=== PATIENT | female | born 1940 | race Caucasian/White ===

== ENCOUNTER → 2017-12-17 09:39 | Outpatient (CLI) | payer MEDICARE, SELFPAY | PROVIDERS: PCP Internal Medicine; Visit Provider Internal Medicine | DX: M81.0 Age-related osteoporosis without current pathological fracture (principal) | CPT/HCPCS: 77080; 77081 ==

== ENCOUNTER 2017-12-23 09:45 | Outpatient (RCR) | payer MEDICARE, SELFPAY ==
--- NOTE | 2017-11-24 10:51 | PT.OTN ---
Current Diagnoses Muscle weakness (generalized) (11/24/17) Other abnormalities of gait and mobility (11/24/17) Abnormal posture (11/24/17) Other symptoms and signs involving the musculoskeletal system (11/24/17) Transition note: On November 23, 2017 our therapy services consisting of Speech, Occupational, and Physical Therapy transitioned from the [employer] electronic documentation system to a new [employer] electronic documentation system.?? All documentation prior to November 23 can be found under [employer] saved data. From November 23 forward all medical record documentation will be in [employer] 6.1.
--- NOTE | 2017-11-24 12:59 | PT.OTN ---
Current Diagnoses Muscle weakness (generalized) (11/24/17) Other abnormalities of gait and mobility (11/24/17) Abnormal posture (11/24/17) Other symptoms and signs involving the musculoskeletal system (11/24/17) Physical Therapy Treatment Note PT-OP-A Visit Information Start: 11/24/17 12:29 Freq: Status: Active Protocol: Activity Type Activity Date Activity User E-Sign Co-Sign Detail Recorded Client Recorded Date Recorded By Document 11/24/17 12:31 [facility] [email or web address] 11/24/17 12:54 [facility] 11/24/17 12:31 Out-Patient Physical Therapy Visit Information [Visit Information] -Visit Type Treatment Note -Visit Start Time 10:30 -Visit Stop Time 11:10 -Total Visit Minutes 40 -Visit Number 7 -Number of BRIDGE ENGINEER Visits 0 [Evaluation Information] -Evaluation Date 10/06/17 PT-OP-C Subjective Start: 11/24/17 12:29 Freq: Status: Active Protocol: Activity Type Activity Date Activity User E-Sign Co-Sign Detail Recorded Client Recorded Date Recorded By Document 11/24/17 12:31 [place] [id number] 11/24/17 12:54 [facility] 11/24/17 12:31 OP-PT Subjective [Patient Comments] -Patient Comments Pt notes that she still cannot open a tight jar of pickles, but is pleased with where she is at right now with her healing. -Patient Reported Progress Improving PT-OP-D Balance Start: 11/24/17 12:29 Freq: Status: Active Protocol: Activity Type Activity Date Activity User E-Sign Co-Sign Detail Recorded Client Recorded Date Recorded By Document 11/24/17 12:31 [facility] [email or web address] 11/24/17 12:54 [facility] 11/24/17 12:31 OP-PT Balance Assessment [Standing Balance] -Standing Balance Comments 10 second standing bilaterally in semi-tandem standing on Shuttle Balance (blue) with UE support Chand Fall Scale [Copyright Permission] Jagruti JM, Jagruti RM, Jesenia SJ. Development of a scale to identify the fall-prone patient. Can J Aging 1989;8; 366-7. Carly Chand (2009). Preventing patient falls. (2nd ed). [place]: [employer]. PT-OP-Q Treatments Start: 11/24/17 12:29 Freq: Status: Active Protocol: Activity Type Activity Date Activity User E-Sign Co-Sign Detail Recorded Client Recorded Date Recorded By Document 11/24/17 12:31 [facility] [email or web address] 11/24/17 12:54 [facility] 11/24/17 12:31 Cardio Equipment [Recumbent Stepper (Sci-Fit)] -Duration (Minutes) 6 -Resistance 3 -Seat Position 11 -Other biodex Gym Equipment [Shuttle Balance] 1 -Details blue- semi- tandem and normal DL -Reps/Duration 14 minutes Therapeutic Exercises [Sitting Exercises] 4 -Sitting Exercise Name A/P stabilization with red Flex- bar -Side right -Reps/Minutes 2 min 3 -Sitting Exercise Name 4-way wrist ROM vs. gravity -Side right -Reps/Minutes 10 each 2 -Sitting Exercise Name digi-flex ( green) indiv. manual writer and whole manual writer -Side right -Reps/Minutes 8 reps each 1 -Sitting Exercise Name Flexbar (red)- pro/supination, wrist flex/ext -Side bilateral -Reps/Minutes 2x10 PT-OP-T Assessment and Plan Start: 11/24/17 12:29 Freq: Status: Active Protocol: Activity Type Activity Date Activity User E-Sign Co-Sign Detail Recorded Client Recorded Date Recorded By Document 11/24/17 12:31 [facility] [email or web address] 11/24/17 12:54 [facility] 11/24/17 12:31 Physical Therapy Assessment [Rehab Potential] -Rehabilitation Potential Good [Impairments] -Impairments Functional Activities ROM Strength [Assessment Summary] -Assessment Pt with improved tolerance to ROM vs. gravity of the R wrist , and appears to have improved standing balance on unstable surface. Pt is progressing well with physical therapy, and did not c/o pain this session. Physical Therapy Plan [Frequency and Duration] -Frequency of Treatment 2x/Week -Duration of Treatment 12 wks -Plan of Care Start Date 10/06/17 -Plan of Care End Date 12/28/17 [Therapeutic Interventions] -Therapeutic Interventions Home Exercise Program Manual Therapy Neuromuscular Re-education Therapeutic Exercises [Next Visit Focus/Plan] -Next Visit Plan continue to progress R wrist ROM, strength, and standing balance ( dynamic and static).
--- NOTE | 2017-11-26 13:45 | PT.OTN ---
Current Diagnoses Muscle weakness (generalized) (11/26/17) Other abnormalities of gait and mobility (11/26/17) Abnormal posture (11/26/17) Other symptoms and signs involving the musculoskeletal system (11/26/17) Physical Therapy Treatment Note PT-OP-A Visit Information Start: 11/24/17 12:29 Freq: Status: Active Protocol: Activity Type Activity Date Activity User E-Sign Co-Sign Detail Recorded Client Recorded Date Recorded By Document 11/26/17 11:18 [place] [id number] 11/26/17 13:43 [facility] 11/26/17 11:18 Out-Patient Physical Therapy Visit Information [Visit Information] -Visit Type Treatment Note -Visit Start Time 11:18 -Visit Stop Time 12:00 -Total Visit Minutes 42 PT-OP-C Subjective Start: 11/24/17 12:29 Freq: Status: Active Protocol: Activity Type Activity Date Activity User E-Sign Co-Sign Detail Recorded Client Recorded Date Recorded By Document 11/26/17 11:18 [place] [id number] 11/26/17 13:43 [facility] 11/26/17 11:18 OP-PT Subjective [Patient Comments] -Patient Comments Pt notes some twinges at the end of the day in her R wrist , but overall is doing well. -Patient Reported Progress Improving PT-OP-D Balance Start: 11/24/17 12:29 Freq: Status: Active Protocol: Activity Type Activity Date Activity User E-Sign Co-Sign Detail Recorded Client Recorded Date Recorded By Document 11/24/17 12:31 [place] [id number] 11/24/17 12:54 [facility] 11/24/17 12:31 OP-PT Balance Assessment [Standing Balance] -Standing Balance Comments 10 second standing bilaterally in semi-tandem standing on Shuttle Balance (blue) with UE support Chand Fall Scale [Copyright Permission] Jagruti LIMA, Jagruti RM, Jesenia SJ. Development of a scale to identify the fall-prone patient. Can J Aging 1989;8; 366-7. Carly Chand (2009). Preventing patient falls. (2nd ed). [place]: [employer]. PT-OP-Q Treatments Start: 11/24/17 12:29 Freq: Status: Active Protocol: Activity Type Activity Date Activity User E-Sign Co-Sign Detail Recorded Client Recorded Date Recorded By Document 11/26/17 11:18 [place] [id number] 11/26/17 13:43 [facility] 11/26/17 11:18 Cardio Equipment [Recumbent Elliptical (Biodex)] -Duration (Minutes) 8 -Resistance 2 -Seat Position 11 Gym Equipment [Shuttle Balance] 1 -Details blue- semi- tandem and normal DL, 180 deg. turns with UE support -Reps/Duration 15 min. Therapeutic Exercises [Sitting Exercises] 4 -Sitting Exercise Name A/P stabilization with red Flex- bar -Side right -Reps/Minutes 2 min 3 -Sitting Exercise Name 4-way wrist -Side right -Resistance 1 -Reps/Minutes 10 each 2 -Sitting Exercise Name digi-flex ( green) indiv. passport support associate and whole passport support associate -Side right -Reps/Minutes 10 reps each 1 -Sitting Exercise Name Flexbar (red)- pro/supination, wrist flex/ext -Side bilateral -Reps/Minutes 2x10 PT-OP-T Assessment and Plan Start: 11/24/17 12:29 Freq: Status: Active Protocol: Activity Type Activity Date Activity User E-Sign Co-Sign Detail Recorded Client Recorded Date Recorded By Document 11/26/17 11:18 [facility] [email or web address] 11/26/17 13:43 [facility] 11/26/17 11:18 Physical Therapy Assessment [Assessment Summary] -Assessment Pt tolerated 1 lb resistance with wrist strengthening activities without c/o pain. Pt's ROM still limited in all planes, but appears to be improving with functional activities. She was able to WB through the R hand without pain on Shuttle Balance . Physical Therapy Plan [Next Visit Focus/Plan] -Next Visit Plan prog. R wrist strength, passport support associate strength and hand function.
--- NOTE | 2017-12-01 18:25 | PT.OTN ---
Current Diagnoses Muscle weakness (generalized) (12/01/17) Other abnormalities of gait and mobility (12/01/17) Abnormal posture (12/01/17) Other symptoms and signs involving the musculoskeletal system (12/01/17) Physical Therapy Treatment Note PT-OP-A Visit Information Start: 11/24/17 12:29 Freq: Status: Active Protocol: Document 12/01/17 11:15 [facility] (Rec: 12/01/17 18:24 [facility] [email or web address]) Out-Patient Physical Therapy Visit Information Visit Information Visit Type Treatment Note Visit Start Time 10:40 Visit Stop Time 11:15 Total Visit Minutes 35 Visit Number 8 Number of INCIDENT RESPONSE CONSULTANT Visits 0 PT-OP-C Subjective Start: 11/24/17 12:29 Freq: Status: Active Protocol: Document 12/01/17 11:15 [facility] (Rec: 12/01/17 18:24 [facility] [email or web address]) OP-PT Subjective Patient Comments Patient Comments Pt apologizes for running late , she had difficulty finding a parking spot. No new complaints. PT-OP-Q Treatments Start: 11/24/17 12:29 Freq: Status: Active Protocol: Document 12/01/17 11:15 [facility] (Rec: 12/01/17 18:22 [facility] [email or web address]) Cardio Equipment Recumbent Elliptical (Biodex) Duration (Minutes) 8 Resistance 3 Seat Position 11 Gym Equipment Shuttle Balance 1 Details blue- semi-tandem and normal DL, red- normal DL Reps/Duration 10 min Therapeutic Exercises Sitting Exercises 5 Sitting Exercise Name forearm flexor and extensor stretching Side right Reps/Minutes 6 min. 3 Sitting Exercise Name 4-way wrist Side right Resistance 1 Reps/Minutes 10 each 2 Sitting Exercise Name digi-flex (green) indiv. maintenance mechanic elevators and whole maintenance mechanic elevators Side right Reps/Minutes 10 reps each Manual Therapy Treatment Joint Mobilizations 1 Joint Wrist (right) Direction inf and superior Grade III Reps/Duration 5 min Comments with gentle traction PT-OP-T Assessment and Plan Start: 11/24/17 12:29 Freq: Status: Active Protocol: Document 12/01/17 11:15 [facility] (Rec: 12/01/17 18:22 [facility] [email or web address]) Physical Therapy Assessment Assessment Summary Assessment Pt without c/o pain with forearm flexor and extensor stretching this session. Improved R wrist extension with manual therapy techniques (joint mobs). Progression to red chain setting in DL normal balance, and pt able to hold for up to 10 sec without UE support, which shows good progression of her balance. Physical Therapy Plan Frequency and Duration Frequency of Treatment 2x/Week Duration of Treatment 12 wks Plan of Care Start Date 10/06/17 Plan of Care End Date 12/28/17 Next Visit Focus/Plan Next Visit Plan prog wrist ROM, strength, and standing balance to dec fall risk.
--- NOTE | 2017-12-09 17:53 | PT.OTN ---
Current Diagnoses Muscle weakness (generalized) (12/09/17) Other abnormalities of gait and mobility (12/09/17) Abnormal posture (12/09/17) Other symptoms and signs involving the musculoskeletal system (12/09/17) Physical Therapy Treatment Note PT-OP-A Visit Information Start: 11/24/17 12:29 Freq: Status: Active Protocol: Document 12/09/17 17:44 [facility] (Rec: 12/09/17 17:53 [facility] [email or web address]) Out-Patient Physical Therapy Visit Information Visit Information Visit Type Treatment Note Visit Start Time 16:05 Visit Stop Time 16:45 Total Visit Minutes 40 Visit Number 9 Number of DIETETIC INTERN Visits 0 Evaluation Information Evaluation Date 10/06/17 PT-OP-C Subjective Start: 11/24/17 12:29 Freq: Status: Active Protocol: Document 12/09/17 17:44 [facility] (Rec: 12/09/17 17:53 [facility] [email or web address]) OP-PT Subjective Patient Comments Patient Comments Pt overall is satisfied with progress thus far. She feels like she is able to put more weight on her R hand to push up from a chair. Patient Reported Progress Improving PT-OP-Q Treatments Start: 11/24/17 12:29 Freq: Status: Active Protocol: Document 12/09/17 17:44 [facility] (Rec: 12/09/17 17:53 [facility] [email or web address]) Cardio Equipment Recumbent Elliptical (Biodex) Duration (Minutes) 8 Resistance 4 Seat Position 11 Gym Equipment Shuttle Balance 1 Details red- normal DL, lateral Reps/Duration 15 min Comments UE support occasionally with A /P but at least one hand always with lateral Therapeutic Exercises Sitting Exercises 5 Sitting Exercise Name forearm extensor stretching Side right Reps/Minutes 2 min Manual Therapy Treatment Joint Mobilizations 1 Joint Wrist (right) Direction inf and superior Grade III Reps/Duration 15 min. Comments with gentle traction PT-OP-T Assessment and Plan Start: 11/24/17 12:29 Freq: Status: Active Protocol: Document 12/09/17 17:44 [facility] (Rec: 12/09/17 17:53 [facility] [email or web address]) Physical Therapy Assessment Assessment Summary Assessment Pt most limited in flexion of the right wrist this date, with tension in extensors of the wrist and joint hypomobility. Pt's balance is improving with Shuttle Balance activity requiring less UE support with A/P stabilization (ankle strategy) and red setting. Physical Therapy Plan Frequency and Duration Frequency of Treatment 2x/Week Duration of Treatment 12 wks Plan of Care Start Date 10/06/17 Plan of Care End Date 12/28/17 Next Visit Focus/Plan Next Visit Plan wall push ups, prog. mobility of wrist in flexion.
--- NOTE | 2017-12-16 19:06 | PT.OTN ---
Current Diagnoses Muscle weakness (generalized) (12/16/17) Other abnormalities of gait and mobility (12/16/17) Abnormal posture (12/16/17) Other symptoms and signs involving the musculoskeletal system (12/16/17) Physical Therapy Treatment Note PT-OP-A Visit Information Start: 11/24/17 12:29 Freq: Status: Active Protocol: Document 12/16/17 12:00 [facility] (Rec: 12/16/17 19:05 [facility] [email or web address]) Out-Patient Physical Therapy Visit Information Visit Information Visit Type Treatment Note Visit Start Time 11:20 Visit Stop Time 12:00 Total Visit Minutes 40 Visit Number 11 Number of POWER TRANSFORMER INSPECTOR Visits 0 Evaluation Information Evaluation Date 10/06/17 PT-OP-C Subjective Start: 11/24/17 12:29 Freq: Status: Active Protocol: Document 12/16/17 12:00 [facility] (Rec: 12/16/17 19:05 [facility] [email or web address]) OP-PT Subjective Patient Comments Patient Comments Pt feeling stronger, and more able to use her RUE. No pain in the R wrist/hand. She feels more confident ambulating outdoors. Patient Reported Progress Improving OP-PT Pain Assessment Location Right Wrist Intensity 0 Scale Used Numeric (1 - 10) Right Shoulder Intensity 0 Scale Used Numeric (1 - 10) PT-OP-D Balance Start: 11/24/17 12:29 Freq: Status: Active Protocol: Document 12/16/17 12:00 [facility] (Rec: 12/16/17 19:05 [facility] [email or web address]) Red Balance Assessment Evaluation Sitting to Standing Ability Independent w/Hands Unsupported Stance Safely- 2 minutes Sitting Unsupported, Feet on Floor Safely- 2 minutes Standing to Sitting Ability Safely, Minimal Hand Use Transfer Ability Safely, Hand Use Unsupported Stance- Eyes Closed Safely, 10 seconds Unsupported Stance- Eyes Open Independent, 1 minute Reaching Forward Standing Safely, 5 inches Pick- Up Object From Floor Independent/Safe Look Behind Shoulder - Standing Shifts Weight Well Turning 360 Degrees Turns Bilateral, < 4 secs Unsupported Stance, Alternating Feet on (I)- 8 Steps in 20 secs Stair Unsupported Tandem Stance Holds Tandem- 30 seconds Unilateral Leg Stance Lifts Leg/Holds > 3 secs Total Score Red Total Score (out of 56 points) 50 Red Impairment Rating 1 to 19% Impaired (Score 45-55 ) PT-OP-E Functional Tests Start: 12/16/17 19:05 Freq: Status: Active Protocol: Document 12/16/17 12:00 [facility] (Rec: 12/16/17 19:06 [facility] [email or web address]) Functional Tests Timed Up and Go (TUG) Score 9.4 seconds TUG Impairment Rating 0% Impaired (Score 10) PT-OP-K Range of Motion Start: 12/16/17 18:41 Freq: Status: Active Protocol: Document 12/16/17 12:00 [facility] (Rec: 12/16/17 19:05 [facility] [email or web address]) Elbow/Forearm Range of Motion Elbow/Forearm Measured in Degrees Right Active Comments Wrist AROM: 81 deg extension, 64 deg. flexion Left Active Comments Wrist AROM: 83 deg extension, 75 deg. flexion PT-OP-M Strength Start: 12/16/17 18:41 Freq: Status: Active Protocol: Document 12/16/17 12:00 [facility] (Rec: 12/16/17 19:05 [facility] [email or web address]) Shoulder Strength Shoulder Manual Muscle Testing Right Flexion 5 Normal Abduction (C5) 4+ Good+ External Rotation 5 Normal Internal Rotation 5 Normal Left Flexion 5 Normal Abduction (C5) 5 Normal External Rotation 5 Normal Internal Rotation 5 Normal Elbow/Forearm Strength Elbow and Forearm Manual Muscle Testing Right Flexion (C6) 5 Normal Extension (C7) 5 Normal Pronation 4+ Good+ Supination 4+ Good+ Left Flexion (C6) 5 Normal Extension (C7) 5 Normal Pronation 5 Normal Supination 5 Normal Hand Private Secretary/Pinch Strength Hand Dominance Hand Dominance Left Hand Strength Right Private Secretary (lbs) 22 Left Private Secretary (lbs) 35 Hip Strength Hip Manual Muscle Testing Right Flexion (L2) 4+ Good+ External Rotation 4 Good Internal Rotation 4 Good Left Flexion (L2) 4+ Good+ External Rotation 4 Good Internal Rotation 4 Good Knee Strength Knee Manual Muscle Testing Right Flexion (S2) 5 Normal Left Flexion (S2) 5 Normal Wrist Strength Wrist Manual Muscle Testing Right Flexion (C7) 4 Good Extension (C6) 5 Normal Left Flexion (C7) 5 Normal Extension (C6) 5 Normal PT-OP-Q Treatments Start: 11/24/17 12:29 Freq: Status: Active Protocol: Document 12/16/17 12:00 [facility] (Rec: 12/16/17 19:05 [facility] [email or web address]) Therapeutic Activity Therapeutic Activity 1 Name objective testing Reps/Minutes 30 min Comments Red, TUG, wrist ROM, classified advertising supervisor strength, UE and LE testing. Manual Therapy Treatment Joint Mobilizations 1 Joint Wrist (right) Direction inf and superior Grade III Reps/Duration 10 min. Comments with gentle traction PT-OP-T Assessment and Plan Start: 11/24/17 12:29 Freq: Status: Active Protocol: Document 12/16/17 12:00 [facility] (Rec: 12/16/17 19:05 [facility] [email or web address]) Physical Therapy Assessment Goals Six Impairment R shoulder pain (3/10) Shelter Goal (LTG) 0/10 prior to d/c pain in R shoulder LTG Duration 12 weeks Five Impairment Gait tolerance Shelter Goal (LTG) Pt will report being back to prior level of gait outdoors without assistive device prior to d/c. LTG Duration 12 weeks Four Impairment UE weakness Shelter Goal (LTG) Shoulder abduction 5/5, flexion 5/5, ER 5/5, IR 5/5 Elbow extension and flexion 5/ 5 Wrist flexion and extension 5/ 5 LTG Duration 12 weeks Three Impairment LE weakness Oracle Business Analyst Goal (LTG) Hip flexion 4+/5, ER 4/5, IR 4 /5 Knee flexion 4/5 LTG Duration 12 weeks Two Impairment Elexw-pj-ygr-go [employer] Business Analyst Goal (LTG) <13 sec without assistive device LTG Duration 12 weeks One Impairment Red Balance Scale Shelter Goal (LTG) 50/56 LTG Duration 12 weeks Progress Towards Goals Progress Towards Goals Progressing Toward Goals Progress Comments Achieved goals 1, 2, 3, 5, and 6 and progressing toward achieving goal 4 Assessment Summary Assessment Pt overall demonstrated great improvements with balance and gait tolerance, decreasing fall risk and increasing gait speed with Red and TUG. Pt's R wrist is still limited in flexion ROM on the R and with weaker classified advertising supervisor although it is her non-dominant hand. Pt is nearing d/c, likely in the next 1-2 weeks and will continue to progress her HEP as tolerated. Physical Therapy Plan Next Visit Focus/Plan Next Note Type Treatment Note Next Visit Plan review HEP, safety for d/c. Please Sign and Return: I have reviewed this Plan of Care and certify that the skilled therapy services above are required to meet the patient???s needs. Physician Signature Date Printed Name and Credentials Clinical Instructor Signature Printed Name and Credentials
--- NOTE | 2017-12-23 10:28 | PT.OTN ---
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 Pt was able to carry a heavy grocery bag without pain or weakness. She feels ready for d/c. Patient Reported Progress Improving OP-PT Pain Assessment Location Right Wrist Intensity 0 Scale Used Numeric (1 - 10) PT-OP-D Balance Start: 11/24/17 12:29 Freq: Status: Active Protocol: Document 12/16/17 12:00 [facility] (Rec: 12/16/17 19:05 [facility] [email or web address]) Red Balance Assessment Evaluation Sitting to Standing Ability Independent w/Hands Unsupported Stance Safely- 2 minutes Sitting Unsupported, Feet on Floor Safely- 2 minutes Standing to Sitting Ability Safely, Minimal Hand Use Transfer Ability Safely, Hand Use Unsupported Stance- Eyes Closed Safely, 10 seconds Unsupported Stance- Eyes Open Independent, 1 minute Reaching Forward Standing Safely, 5 inches Pick- Up Object From Floor Independent/Safe Look Behind Shoulder - Standing Shifts Weight Well Turning 360 Degrees Turns Bilateral, < 4 secs Unsupported Stance, Alternating Feet on (I)- 8 Steps in 20 secs Stair Unsupported Tandem Stance Holds Tandem- 30 seconds Unilateral Leg Stance Lifts Leg/Holds > 3 secs Total Score Red Total Score (out of 56 points) 50 Red Impairment Rating 1 to 19% Impaired (Score 45-55 ) PT-OP-E Functional Tests Start: 12/16/17 19:05 Freq: Status: Active Protocol: Document 12/16/17 12:00 RCC (Rec: 12/16/17 19:06 [facility] [email or web address]) Functional Tests Timed Up and Go (TUG) Score 9.4 seconds TUG Impairment Rating 0% Impaired (Score 10) PT-OP-K Range of Motion Start: 12/16/17 18:41 Freq: Status: Active Protocol: Document 12/16/17 12:00 RCC (Rec: 12/16/17 19:05 [facility] [email or web address]) Elbow/Forearm Range of Motion Elbow/Forearm Measured in Degrees Right Active Comments Wrist AROM: 81 deg extension, 64 deg. flexion Left Active Comments Wrist AROM: 83 deg extension, 75 deg. flexion PT-OP-M Strength Start: 12/16/17 18:41 Freq: Status: Active Protocol: Document 12/16/17 12:00 [facility] (Rec: 12/16/17 19:05 [facility] [email or web address]) Shoulder Strength Shoulder Manual Muscle Testing Right Flexion 5 Normal Abduction (C5) 4+ Good+ External Rotation 5 Normal Internal Rotation 5 Normal Left Flexion 5 Normal Abduction (C5) 5 Normal External Rotation 5 Normal Internal Rotation 5 Normal Elbow/Forearm Strength Elbow and Forearm Manual Muscle Testing Right Flexion (C6) 5 Normal Extension (C7) 5 Normal Pronation 4+ Good+ Supination 4+ Good+ Left Flexion (C6) 5 Normal Extension (C7) 5 Normal Pronation 5 Normal Supination 5 Normal Hand Manager Laundry/Pinch Strength Hand Dominance Hand Dominance Left Hand Strength Right Manager Laundry (lbs) 22 Left Manager Laundry (lbs) 35 Hip Strength Hip Manual Muscle Testing Right Flexion (L2) 4+ Good+ External Rotation 4 Good Internal Rotation 4 Good Left Flexion (L2) 4+ Good+ External Rotation 4 Good Internal Rotation 4 Good Knee Strength Knee Manual Muscle Testing Right Flexion (S2) 5 Normal Left Flexion (S2) 5 Normal Wrist Strength Wrist Manual Muscle Testing Right Flexion (C7) 4 Good Extension (C6) 5 Normal Left Flexion (C7) 5 Normal Extension (C6) 5 Normal PT-OP-Q Treatments Start: 11/24/17 12:29 Freq: Status: Active Protocol: Document 12/23/17 10:15 RCC (Rec: 12/23/17 10:27 [facility] [email or web address]) Therapeutic Exercises Sitting Exercises 6 Sitting Exercise Name Radial deviation Side right Resistance L1 band Reps/Minutes 2x15 5 Sitting Exercise Name forearm extensor stretching Side right 3 Sitting Exercise Name 4-way wrist Side right Reps/Minutes 10 each Self-Care/Home Management Treatment Education Patient Education Home Exercise Program Joint Protection Other Education Handout written for HEP, educated and performed each activity with PT demonstration and supervision. PT-OP-T Assessment and Plan Start: 11/24/17 12:29 Freq: Status: Active Protocol: Document 12/23/17 10:15 [facility] (Rec: 12/23/17 10:27 [facility] [email or web address]) Physical Therapy Assessment Goals Six Impairment R shoulder pain (3/10) [employer] Wet Process Goal (LTG) 0/10 prior to d/c pain in R shoulder Achieved 12/23/17 LTG Duration 12 weeks Five Impairment Gait tolerance Longterm Goal (LTG) Pt will report being back to prior level of gait outdoors without assistive device prior to d/c. Achieved 12/23/17. LTG Duration 12 weeks Four Impairment UE weakness Miller Head Wet Process Goal (LTG) Shoulder abduction 5/5, flexion 5/5, ER 5/5, IR 5/5 Elbow extension and flexion 5/ 5 Wrist flexion and extension 5/ 5 LTG Duration 12 weeks Three Impairment LE weakness Miller [employer] Wet Process Goal (LTG) Hip flexion 4+/5, ER 4/5, IR 4 /5 Knee flexion 4/5 Achieved 12/23/17 LTG Duration 12 weeks Two Impairment [id number] Longterm Goal (LTG) <13 sec without assistive device Achieved previous visit LTG Duration 12 weeks One Impairment Red Balance Scale Miller [employer] Wet Process Goal (LTG) 50/56 Achieved previous visit. LTG Duration 12 weeks Progress Towards Goals Progress Towards Goals Progressing Toward Goals Progress Comments Achieved goals 1, 2, 3, 5, and 6 and progressing toward achieving goal 4 Assessment Summary Assessment Pt achieved 5/6 goals, and her HEP is established to continue to progress toward this goal. Pt's wrist flexion ROM is still limited, but improving and functional. Pt without c/o pain, and is improving with daily activities. Pt is appropriate for d/c at this time. Physical Therapy Plan Discharge Physical Therapy Discharge Reasons Patient Request Please Sign and Return: I have reviewed this Plan of Care and certify that the skilled therapy services above are required to meet the patient???s needs. Physician Signature Date Printed Name and Credentials Clinical Instructor Signature Printed Name and Credentials
== END 2017-12-29 10:46 ==
LOC: PHYS 09:45
PROVIDERS: Family Provider Internal Medicine; PCP Internal Medicine; Visit Provider Internal Medicine
DX: R29.898 Other symptoms and signs involving the musculoskeletal system (principal); M62.81 Muscle weakness (generalized); R26.89 Other abnormalities of gait and mobility; R29.3 Abnormal posture
CPT/HCPCS: 97110; 97112; 97140; 97530; 97535

== ENCOUNTER 2018-01-24 23:20 | Inpatient (IN) | payer MEDICARE, SELFPAY ==
[2018-01-24 23:25] VITALS: BP 215/114; PULSE 103; RESP 18; TEMP 37.7; O2SAT 100
[2018-01-25] VITALS (15 sets, daily range): BP systolic 139–211; BP diastolic 87–117; PULSE 72–106; RESP 16–21; TEMP 36.7–37.9; O2SAT 89–100
[2018-01-25] MEDS: diazePAM 10 MG/2 ML SYRINGE 5 MG IV (01:09)
[2018-01-25] MEDS: METOPROLOL 25 MG TABLET PO (01:30)
--- NOTE | 2018-01-25 01:56 | PC.NURSE ---
back spasms following reached for something several days ago, reports history of same, no relief from PRN vicodin per pt, denies nausea/fever/vomiting/diarrhea/dysuria or other sx
[2018-01-25] MEDS: diazePAM 5 MG TABLET PO (02:08)
[2018-01-25 02:31] LABS: Add Manual Diff / Slide Review NO; Basophils Percent Auto 0.5 % (0-2); Eosinophils Percent Auto 0.5 % (2-4); Hemoglobin 13.7 g/dL (12.0-16.0); Mean Corpuscular HGB Conc 32.6 % (30-36); Mean Corpuscular Hemoglobin 29.5 PG (26-34); Mean Corpuscular Volume 90.5 fL (80-100); Monocytes Percent Auto 5.3 % (3-14); Neutrophils Absolute Auto 7300 /uL (3000-5900); Neutrophils Percent Auto 84.7 % (50-75); Platelet Count 309 X10^3/uL (150-400); Red Blood Cell Count 4.64 X10^6/uL (4.0-5.2); Red Cell Distribution Width 13.2 % (11.6-14.8); White Blood Cell Count 8.6 X10^3/uL (4.5-11.0)
[2018-01-25 02:33] LABS: Lactate (Lactic Acid) 0.6 mmol/L (0.7-2.1)
[2018-01-25 02:34] LABS: Alanine Aminotransferase 21 IU/L (9-52); Albumin 4.3 g/dL (3.5-5.0); Albumin Globulin Ratio 1.1 (1.0-2.8); Alkaline Phosphatase 105 U/L (38-126); Aspartate Aminotransferase 22 IU/L (14-36); Bilirubin Total 0.5 mg/dL (0.2-1.3); Blood Urea Nitrogen 24 mg/dL (7-17); Calcium 9.9 mg/dL (8.4-10.2); Carbon Dioxide 29 mmol/L (22-32); Chloride 100 mmol/L (98-107); Estimated Glomerular Filt Rate > 60.0 mL/min (>60); Glucose 117 mg/dL (80-110); HEMOLYSIS < 15 (0-50); Potassium 4.3 mmol/L (3.4-5.1); Sodium 141 mmol/L (137-145); Total Protein 8.3 g/dL (6.3-8.2)
--- NOTE | 2018-01-25 03:17 | DI.CT.S_ITS ---
PROCEDURE: CT ANGIO ABDOMEN PELVIS INDICATIONS: right to midline lower back pain, markedly hypertensive, TECHNIQUE: After the administration of intravenous contrast, 2.5 mm thick sections acquired from the diaphragm to the symphysis. 10 mm maximum-intensity projection (MIP) reformats were then acquired. For radiation dose reduction, the following was used: automated exposure control. COMPARISON: [facility], CT, PELVIS WITHOUT CONTRAST, 07/08/2008, 17:39. FINDINGS: Image quality: Excellent. Aorta: No areas of hemodynamically significant stenosis, vascular occlusion or aneurysmal dilation. Mild atherosclerotic calcifications are present. Mesenteric arteries: Celiac trunk, superior and inferior mesenteric arteries appear patent. Right pelvic arteries: No areas of hemodynamically significant stenosis, vascular occlusion or aneurysmal dilation. Mild atherosclerotic calcifications are present. Left pelvic arteries: No areas of hemodynamically significant stenosis, vascular occlusion or aneurysmal dilation. Mild atherosclerotic calcifications are present. Extravascular soft tissues: Dependent changes are present in the left base. Heart size is mildly prominent. Liver is normal in size and enhancement. Gallbladder is unremarkable. Biliary system is non dilated. Pancreas enhances normally. Spleen is normal in size and enhancement. No adrenal nodules right kidney is unremarkable without evidence of obstruction. Low-attenuation focus is present within the right kidney measuring approximately 9 mm suggestive of cyst. Left kidney is absent. Non opacified bowel loops are normal in wall thickness and caliber. Moderate stool without obstruction is present. Colonic diverticula are present. No free fluid or air. No retroperitoneal or mesenteric adenopathy There is a large hiatal hernia. Pelvic floor pessary is noted. Fat-containing right abdominal wall hernia is present with diastases of the rectus musculature measuring 26 mm in transverse dimension. This is new since prior exam dated 07/08/08. Bridging osteophytes are present throughout the spine. There is significant levoconvex scoliotic curvature of the lumbar spine. Lucency is present through the right lamina and facet at the level of L1 as well as the inferior aspect of the vertebral body. Mild perivertebral fat stranding is present. There is approximately 15% compression deformity. Presumed chronic depression deformities are present at T11 and T12. IMPRESSION: 1. Aorta, as well as abdominal and pelvic vasculature demonstrates no areas of hemodynamically significant stenosis, vascular occlusion or aneurysmal dilation. 2. Diverticulosis. 3. Inferior L1 vertebral body fracture with extension to the right facet joint and lamina. Appearance appears to be acute/subacute secondary to adjacent stranding in the perivertebral fat. Dictated by: Beth Rose M.D. on 01/25/2018 at 9:11 Approved by: Beth Rose M.D. on 01/25/2018 at 9:22
[2018-01-25 03:46] LABS: Appearance Urine UA SL CLOUDY; Bilirubin Urine UA NEGATIVE (NEGATIVE); Glucose Urine UA NEGATIVE (Normal); Ketones Urine UA 1+ (NEGATIVE); Leukocyte Esterase Urine UA 2+ (NEGATIVE); Nitrite Urine UA Negative (Negative); Occult Blood Urine UA 1+ (Negative); Protein Urine UA NEGATIVE (Negative); Urobilinogen Urine UA 0.2 E.U./dL (0.2); pH Urine UA 7.5 (4.5-8.0)
[2018-01-25 03:48] LABS: Color Urine UA Yellow
[2018-01-25 03:52] LABS: RBC Urine 5-10/HPF (0-5/HPF)
[2018-01-25 03:53] LABS: Bacteria Urine Few (2-10); Culture Indicated Urine Specimen Cultured; Squamous Epithelial Cell Urine 0-1 /HPF; WBC Urine 10-30/HPF (0-5/HPF)
[2018-01-25] MEDS: HYDROMORPHONE 0.5 MG INJ 1 MG IV (06:04)
--- NOTE | 2018-01-25 06:59 | ED_ITS ---
HPI - Back Pain/Injury General Chief Complaint: Back Pain/Injury Stated Complaint: lower back spasms History of Present Illness HPI Narrative: HPI 77-year-old female with osteoporosis, HTN, idiopathic scoliosis and chronic back pain presents for evaluation of 2 to 3 days of gradually worsening insidious onset atraumatic back pain that is described as moderate to severe, diffuse, right greater than left, and spasming like lower back pain. Patient denies a history of recent trauma, fevers, chills, unexpected weight loss, decreased perineal sensation when toileting, difficulty urinating or incontinence, morning stiffness, IV drug use, alcoholism, recent invasive medical procedures, presyncope, abdominal pain, or dysuria. Smoking: former smoker, uncertain duration, estimated upwards of 10 years. Anticoagulation: denies anticoagulation and Plavix, denies stents. M/S/F/SocHx notable for: please see HPI; remainder reviewed with patient and in chart. ROS: Negative constitutional, eye, cardiovascular, pulmonary, GI, , MSK, skin , neurologic, psychiatric, endocrine unless noted in the HPI. Exam Gen: pleasant, uncomfortable appearing, not in extremis. HEENT: NC, AT, PEERL, EOMI. Resp: CTAB Card: RRR GI: ND, non-tender to palpation, no palpable midline masses, no palpable midline pulsatility. : No CVA tenderness to percussion bilaterally. MSK: No visible deformities, strength and tone WNL. Diffuse lower back tenderness to palpation. Skin: Normal color with no visible lesions. Neuro: AO x 3, no facial asymmetry, vision and hearing WNL. Straight leg raise test - positive right, positive left. BLE distal sensation intact, 5/5 dorsiflexion / plantarflexion bilaterally. Gait: unable to assess secondary to discomfort. Psych: Mood and affect appropriate. Labs / Imaging (pertinent): CTA Abd/Pelvis: no aortic aneurysm or dissection. Acute L1 vertebral body fracture with extension to the right lamina and interface septal region. Small mesenteric lymph nodes, query mesenteric adenitis. WBC 8.6, HB 13.7, sodium 141, potassium 4.3 UA - negative nitrate, 2+ leukocyte esterase, 5-10 RBCs, 10-30 WBCs, few bacteria MDM Previous chart, nursing note, and vitals reviewed. A: 77-year-old female with osteoporosis, HTN, idiopathic scoliosis and chronic back pain presents for evaluation of 2 to 3 days of gradually worsening insidious onset atraumatic back pain that is described as moderate to severe, diffuse, right greater than left, and spasming like lower back pain. DDx: muscle strain, muscle spasm, sciatica, lumbar radiculopathy, cauda equina syndrome, spinal cord abscess, vertebral osteomyelitis, vertebral diskitis, fracture, seronegative spondyloarthropathy, abdominal aortic aneurysm, abdominal aortic dissection, spontaneous hematoma, malignant spinal cord compression. Evaluation: * Cauda equina - consider unlikely given normal perineal sensation, lack of incontinence or urinary retention. * Infection - abscess, vertebral osteomyelitis, and diskitis are unlikely as the patient is immunocompetent and there are no further identifiable risk factors. * Fracture - L1 vertebral body fracture. * Seronegative spondyloarthropathy - unlikely, no further evaluation currently indicated given the absence of morning stiffness and negative RA, psoriatic arthritis, and autoimmune disease history. * AAA or Dissection - no evidence by imaging. * Note was made the patient's hypertension, as she was asymptomatic emergent management was not indicated. * Orthopedic consultation pending at time of [facility] care [facility]. Impression: Back Pain. (please reference below for remainder of encounter information) Related Data Home Medications Medication Instructions Recorded Confirmed VITAMIN E (#E-400) 400 iu PO Q DAY #0 07/08/11 01/18/18 MULTIVITAMIN (#MULTIPLE VITAMINS) 1 cap PO Q DAY #0 02/18/12 01/18/18 Previous Rx's Medication Instructions Recorded ferrous sulfate [Iron (ferrous 325 mg PO BID #60 tab 11/19/16 sulfate)] [walker] #0 02/22/17 nortriptyline 50 mg PO HS #180 cap 09/08/17 gabapentin [Neurontin] 600 mg PO BID #60 tab 11/09/17 metoprolol tartrate 25 mg PO BID #60 tab 11/15/17 omeprazole 40 mg capsule,delayed 40 mg PO QDAY #30 cap 01/04/18 release alendronate 70 mg tablet 70 mg PO QWEEK #12 tab 01/18/18 hydrocodone 5 mg-acetaminophen 325 1 - 2 tab PO Q6HP PRN #40 tab 01/18/18 mg tablet Allergies Allergy/AdvReac Type Severity Reaction Status Date / Time No Known Drug Allergies Allergy Verified 01/18/18 10:21 PFSH Medical History Osteoporosis (Chronic) Chronic Sergey lesion (Chronic 02/16/17) Essential hypertension (Chronic) Chronic back pain (Chronic) Idiopathic scoliosis (Chronic 07/03/11) 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) Hiatal hernia (Chronic 07/03/11) History of gastrointestinal hemorrhage (Inactive) History of duodenal ulcer (Inactive) 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) Glaucoma (Chronic ~11/2016) Social History marital status: number of children: 2 household members: none lives independently: Yes caregiver/support person: Yes housing: house pets and animals: Yes education level: college (3 years) occupational status: other (Retired) 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 kerry/caodaism: [employer] travel history: other ([place]) leisure activities: reading and other (Meetings, Trips with granddaughter, knit , cooks.) Smoking Status: Former smoker Tobacco: How many years used: 8 Smokeless tobacco user: other (Cigarettes) quit status: quit date established (1956) second hand exposure: No alcohol intake: current (Occasionally) substance use type: does not use Exam Initial Vital Signs Initial Vital Signs: Vital Signs Temperature 99.8 F H 01/24/18 23:25 Pulse Rate 103 H 01/24/18 23:25 Respiratory Rate 18 01/24/18 23:25 Blood Pressure 215/114 H 01/24/18 23:25 Pulse Oximetry 100 01/24/18 23:25 Course Orders Ordered: ED Orders 01/24/18 23:32 Complete Blood Count AUTO DIFF Stat Comprehensive Metabolic Panel Stat 01/24/18 23:33 Lactate (Lactic Acid) Stat 01/25/18 03:17 CT angio abdomen pelvis Stat 01/25/18 03:35 Urinalysis and Microscopic Stat Urine Culture Stat Discontinued Medications Diazepam (Valium) 5 mg IV NOW ONE Stop: 01/24/18 23:32 Last Admin: 01/25/18 01:09 Dose: 5 mg Diazepam (Valium) 5 mg PO NOW ONE Stop: 01/25/18 01:43 Last Admin: 01/25/18 02:08 Dose: 5 mg Hydromorphone HCl (Dilaudid) 1 mg IV NOW ONE Stop: 01/25/18 05:05 Last Admin: 01/25/18 06:04 Dose: 1 mg Metoprolol Tartrate (Lopressor) 25 mg PO NOW ONE Stop: 01/25/18 01:25 Last Admin: 01/25/18 01:30 Dose: 25 mg Vital Signs - 8 hr 01/24/18 23:25 01/25/18 00:54 01/25/18 01:57 Temperature 99.8 F H Pulse Rate 103 H 106 H 103 H Respiratory Rate 18 21 Blood Pressure 215/114 H Blood Pressure [Right Arm] 211/104 H Pulse Oximetry 100 91 96 01/25/18 02:37 01/25/18 03:19 01/25/18 05:07 Temperature Pulse Rate 100 H 101 H 93 H Respiratory Rate Blood Pressure Blood Pressure [Right Arm] 195/115 H 201/112 H 202/117 H Pulse Oximetry 100 94 96 MDM - Back Pain/Injury Lab Data Result diagrams: 01/25/18 02:02 01/25/18 02:02 Lab Results 01/25/18 01/25/18 01/25/18 Range/Units 02:02 02:02 02:02 WBC 8.6 (4.5-11.0) X10^3/uL RBC 4.64 (4.0-5.2) X10^6/uL Hgb 13.7 (12.0-16.0) g/dL Hct 42.0 (36-46) % MCV 90.5 (80-100) fL MCH 29.5 (26-34) PG MCHC 32.6 (30-36) % RDW 13.2 (11.6-14.8) % Plt Count 309 (150-400) X10^3/uL Neut % (Auto) 84.7 H (50-75) % Lymph % (Auto) 9.0 L (25-40) % [place] % (Auto) 5.3 (3-14) % Eos % (Auto) 0.5 L (2-4) % Baso % (Auto) 0.5 (0-2) % Neut # (Auto) 7300 H (0906-3666) /uL Sodium 141 (137-145) mmol/L Potassium 4.3 (3.4-5.1) mmol/L Chloride 100 (98-107) mmol/L Carbon Dioxide 29 (22-32) mmol/L BUN 24 H (7-17) mg/dL Creatinine 0.80 (0.52-1.04) mg/dL Estimated GFR > 60.0 (>60) mL/min BUN/Creatinine Ratio 30.0 H (6-22) Glucose 117 H (80-110) mg/dL Lactate 0.6 L (0.7-2.1) mmol/L Calcium 9.9 (8.4-10.2) mg/dL Total Bilirubin 0.5 (0.2-1.3) mg/dL AST 22 (14-36) IU/L ALT 21 (9-52) IU/L Alkaline Phosphatase 105 (38-126) U/L Total Protein 8.3 H (6.3-8.2) g/dL Albumin 4.3 (3.5-5.0) g/dL Globulin 4.0 (1.7-4.1) g/dL Albumin/Globulin Ratio 1.1 (1.0-2.8) Urine Color Urine Appearance Urine pH (4.5-8.0) Ur Specific [place] (1.000-1.035) Urine Protein (Negative) Urine Glucose (UA) (Normal) g/dL Urine Ketones (NEGATIVE) Urine Occult Blood (Negative) Urine Nitrate (Negative) Urine Bilirubin (NEGATIVE) Urine Urobilinogen (0.2) E.U./dL Ur Leukocyte Esterase (NEGATIVE) Urine RBC (0-5/HPF) Urine WBC (0-5/HPF) Ur Squamous Epith Cells Urine Bacteria (None) Ur Culture Indicated? Micro UA Comment 01/25/18 Range/Units 03:35 WBC (4.5-11.0) X10^3/uL RBC (4.0-5.2) X10^6/uL Hgb (12.0-16.0) g/dL Hct (36-46) % MCV (80-100) fL MCH (26-34) PG MCHC (30-36) % RDW (11.6-14.8) % Plt Count (150-400) X10^3/uL Neut % (Auto) (50-75) % Lymph % (Auto) (25-40) % [place] % (Auto) (3-14) % Eos % (Auto) (2-4) % Baso % (Auto) (0-2) % Neut # (Auto) (0354-7436) /uL Sodium (137-145) mmol/L Potassium (3.4-5.1) mmol/L Chloride (98-107) mmol/L Carbon Dioxide (22-32) mmol/L BUN (7-17) mg/dL Creatinine (0.52-1.04) mg/dL Estimated GFR (>60) mL/min BUN/Creatinine Ratio (6-22) Glucose (80-110) mg/dL Lactate (0.7-2.1) mmol/L Calcium (8.4-10.2) mg/dL Total Bilirubin (0.2-1.3) mg/dL AST (14-36) IU/L ALT (9-52) IU/L Alkaline Phosphatase (38-126) U/L Total Protein (6.3-8.2) g/dL Albumin (3.5-5.0) g/dL Globulin (1.7-4.1) g/dL Albumin/Globulin Ratio (1.0-2.8) Urine Color Yellow Urine Appearance Sl cloudy Urine pH 7.5 (4.5-8.0) Ur Specific [place] 1.020 (1.000-1.035) Urine Protein Negative (Negative) Urine Glucose (UA) Negative (Normal) g/dL Urine Ketones 1+ H (NEGATIVE) Urine Occult Blood 1+ H (Negative) Urine Nitrate Negative (Negative) Urine Bilirubin Negative (NEGATIVE) Urine Urobilinogen 0.2 (0.2) E.U./dL Ur Leukocyte Esterase 2+ H (NEGATIVE) Urine RBC 5-10/hpf H (0-5/HPF) Urine WBC 10-30/hpf H (0-5/HPF) Ur Squamous Epith Cells 0-1 /hpf Urine Bacteria Few (2-10) H (None) Ur Culture Indicated? Specimen cultured Micro UA Comment Not Reportable Discharge Plan Departure Prescriptions: No Action VITAMIN E (#E-400) 400 iu PO Q DAY Qty: 0 RF: 0 MULTIVITAMIN (#MULTIPLE VITAMINS) 1 cap PO Q DAY Qty: 0 RF: 0 ferrous sulfate [Iron (ferrous sulfate)] 325 MG tablet 325 mg PO BID Qty: 60 RF: 11 [walker] Qty: 0 RF: 0 nortriptyline 25 MG capsule 50 mg PO HS Qty: 180 RF: 3 gabapentin [Neurontin] 600 MG tablet 600 mg PO BID Qty: 60 RF: 3 metoprolol tartrate 25 MG tablet 25 mg PO BID Qty: 60 RF: 11 omeprazole 40 mg capsule,delayed release(DR/EC) 40 mg PO QDAY Qty: 30 RF: 3 alendronate [Fosamax] 70 mg tablet 70 mg PO QWEEK Qty: 12 RF: 3 hydrocodone-acetaminophen 5-325 mg tablet 1 - 2 tab PO Q6HP PRN (Reason: pain) Qty: 40 RF: 0
--- NOTE | 2018-01-25 07:55 | PC.NURSE ---
physcial therapy here to assist her ambulation
[2018-01-25] MEDS: HYDROCODONE/ACET 5/325 TABLET 1 TAB PO (08:40)
--- NOTE | 2018-01-25 08:45 | PT.IIE ---
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 1STE Home Environment Standard Height Toilet Walk in Shower Home Equipment Front Wheel Walker Grab Bars In Shower Additional Social History Comment has a cat Physical Therapy Current Condition Current Condition Evaluation Date 01/25/18 Treatment Diagnosis L1 fracture, impaired mobility Onset Date 01/23/18 Precautions Lumbar Precautions Log Roll No Twisting Limit Bending Weight Bearing Status Weight Bearing Status Weight Bear as Tolerated Subjective Physical Therapy Visit Type Type Initial Evaluation Visit Start Time 07:45 Visit Stop Time 08:22 Total Visit Minutes 37 Physical Therapy Visit Comments Patient Comments Pt concerned about her ability to function at home right now , is open to the idea of going to SNF. Patient/Caregiver Goals less pain, to be able to move Therapy Pain Assessment Pain When Pain Assessed During Mobility Pain Present Pain Present Pain Reported Location Bilateral Lower Back Intensity 9 Scale Used Numeric (1 - 10) Description Spasm Stabbing Throbbing With Movement Pain Behaviors Calling Out Facial Grimacing Wincing Pain Management Techniques Modification of Treatment Re-positioning Timing of Activity with Medications PT-Bed Mobility Assessment Rolling Type of Rolling Log Rolling Level of Assist Maximal Assistance 2 Person Assistance Supine to Sit Supine to Sit Total Assistance 2 Person Assistance Sit to Supine Sit to Supine Total Assistance 2 Person Assistance Scooting Scooting to Edge of Bed Dependent Scooting Up and Down in Bed Dependent Bed Transfer Assessment Devices Bed Transfer Assistive Devices Mechanical Lift Technique Bed Transfer Technique Mechanical Lift General Evaluation Overall Bed Transfer Ability Mechanical Lift Comments Factors Limiting Bed Transfer Decreased Strength Pain Bed Transfer Comments Pt in too much pain to participate in any way and gets immediate spasms with any voluntary movements, pt is dependent for all mobility at this time. Gait Assessment Comments Gait Comments unable to perform/assess due to pain Stair Climbing Assessment Comments Stair Climbing Comments unable to perform/assess due to pain Orientation Orientation/Cognition Level of Alertness Alert Orientation Name Age Birthday Month Date Year Day of Week Place Situation Language Function Ability No Deficits Noted Safety Awareness Understands Safety Issues Memory Description No Deficits Noted Gross Range of Motion Upper Extremity ROM Assessment Within Functional Limits Lower Extremity ROM Impairments likely WFL structurally but limited by pain Strength Upper Extremity Strength Assessment Within Functional Limits Comments Strength Comments limited due to pain Physical Therapy Treatment Education Education Provided Precautions Safety PT Summary Assessment and Plan Potential Rehabilitation Potential Fair Status of Condition at Evaluation Evolving Summary Impairments Pain Strength Bed Mobility Transfers Gait Progress Towards Goals Slow Progress due to Pain Assessment Summary Pt presents with significant mobility impairments due to pain and pain induced weakness . Pt cannot tolerate any mobility at this time and is completely dependent. This is significantly below pt's reported functional baseline. It is not safe for pt to return home at this time, recommend pt continue with acute therapy and then transition to SNF rehab for ongoing therapy until pt is ind enough to return home safely. Pt in agreement with this plan. Goals Bed Mobility Goal Minimal Assistance Transfer Goal Minimal Assistance Front Wheeled Walker Gait Goal Minimal Assistance Front Wheel Walker Gait Distance 50 Days to Meet Goals 3 Frequency of Treatment Frequency Of Treatment Once a Day Treatment Plan Physical Therapy Treatment Plan Bed Mobility Training Transfer Training Gait Training Therapeutic Exercise Discharge Planning Recommendations To Nursing Amount of Assist Needed Mechanical Lift Discharge Recommendations PT Discharge Recommendations SNF Rehab
--- NOTE | 2018-01-25 09:20 | P.HP_ITS ---
History of Present Illness Date Patient Seen: 01/25/18 Time Patient Seen: 09:12 Chief complaint: Closed L1 vertebral fracture, hypertension Narrative: 77-year-old female with longstanding history of significant back issues including severe scoliosis. Apparently had rather gradual onset of severe back pain 2-3 days prior to presentation to the [facility] Emergency Department because of her severe pain. Patient lives independently and was basically unable to get up at a better do anything because of severe pain. She was experiencing significant spasming type sensations in her lower back as well. Denies any difficulty a bowel or bladder function. Because the pain could not ambulate and could not really tell about any further weakness in her lower extremities etc. The location of her pain seems to be in the middle of her back at about waist level she says. Does not radiate across or upper down her legs. Workup in the ED seems to show a new L1 compression fracture although difficult to see (per Radiology). Patient was unable to have her pain managed sufficient to allow her to return to her independent living situation therefore she was admitted for further evaluation. Orthopedic surgery also plans to see patient in the hospital see if any intervention might be helpful. 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) Glaucoma (Chronic ~11/2016) Family & Social History Family History: Reviewed 01/25/18 by Charles Castaneda MD Social History: household members none Prior Living Arrangements House lives independently Yes caregiver/support person Yes Tobacco & Substance use: Smoking Status Former smoker alcohol intake current Meds Home Medications Medication Instructions Recorded Confirmed Type vitamin E 400 unit PO DAILY #0 07/08/11 01/25/18 History multivitamin 1 cap PO Q DAY #0 02/18/12 01/25/18 History ferrous sulfate [Iron (ferrous 325 mg PO BID #60 tab 11/19/16 01/25/18 Rx sulfate)] nortriptyline 50 mg PO HS #180 cap 09/08/17 01/25/18 Rx gabapentin [Neurontin] 600 mg PO BID #60 tab 11/09/17 01/25/18 Rx metoprolol tartrate 25 mg PO BID #60 tab 11/15/17 01/25/18 Rx omeprazole 40 mg capsule,delayed 40 mg PO QDAY #30 cap 01/04/18 01/25/18 Rx release alendronate 70 mg tablet 70 mg PO QWEEK #12 tab 01/18/18 01/25/18 Rx hydrocodone 5 mg-acetaminophen 325 1 - 2 tab PO Q6HP PRN #40 tab 01/18/18 Rx mg tablet Allergies Allergy/AdvReac Type Severity Reaction Status Date / Time No Known Drug Allergies Allergy Verified 01/18/18 10:21 Review of Systems Constitutional Constitutional: Denies excessive sweating, Denies fever(s), Denies headache(s), Reports weakness, Denies weight gain and Denies weight loss Eyes Eyes: Denies change in vision, Denies itchy eyes, Denies loss of vision and Denies other visual disturbances ENT Ears, Nose, Mouth, and Throat: No difficulty swallowing, No headache(s) and No neck pain Cardiovascular Cardiovascular: Denies chest pain, Denies fainting, Denies fast heart rate, Denies irregular heart rhythm, Denies rapid, pounding, or irregular heartbeat, Denies shortness of breath, Denies shortness of breath with exertion and Denies slow heart rate Respiratory Respiratory: Denies dyspnea and Denies dyspnea on exertion Gastrointestinal Gastrointestinal: Denies abdominal pain, Denies bloating, Denies change in bowel habits, Denies change in stool character, Denies dysphagia, Denies nausea , Denies vomiting and Denies hematemesis Genitourinary Genitourinary: Denies hematuria, Denies urinary frequency and Denies difficulty voiding Musculoskeletal Musculoskeletal: Reports as per HPI, Reports back pain (See HPI), Denies myalgias, Denies arthralgias, Denies limited range of motion, Reports muscle cramps (See HPI) and Denies neck pain Integumentary/Breasts Skin/Breast: Denies bleeding lesions, Denies change in pigmentation, Denies changing lesions, Denies new lesions, Denies rash, Denies skin swelling, Denies sores and Denies jaundice Neurologic Neurologic: Denies behavioral changes, Denies confusion, Denies syncope, Denies headache(s), Denies loss of vision, Denies memory loss and Reports weakness Psychiatric Psychiatric: Denies behavioral changes, Denies change in appetite, Denies confusion, Denies difficulty concentrating, Denies auditory hallucinations, Denies memory loss, Denies mood swings and Denies suicidal ideation Endocrine Endocrine: Denies excessive sweating and Denies palpitations Hematologic/Lymphatic Hematologic/Lymphatic: Denies easy bleeding, Denies easy bruising and Denies lymphadenopathy Allergic/Immunologic Allergic/Immunologic: Denies itchy eyes Exam Vital Signs (past 8 hours): - 01/25/18 01:57 01/25/18 02:37 01/25/18 03:19 Pulse Rate 103 H 100 H 101 H Respiratory Rate 21 Blood Pressure [Right Arm] 211/104 H 195/115 H 201/112 H Pulse Oximetry 96 100 94 01/25/18 05:07 Pulse Rate 93 H Respiratory Rate Blood Pressure [Right Arm] 202/117 H Pulse Oximetry 96 Oxygen Delivery Method Room Air Narrative Exam Narrative: Elderly female lying very still in her hospital bed HEENT-unremarkable Neck-no lymphadenopathy Lungs-good breath sounds anteriorly Heart-regular rate and rhythm no murmur Abdomen-positive bowel tones soft nontender nondistended Extremities-no cyanosis clubbing or edema Neuro-grossly nonfocal. Gait not tested. Did not really get patient up out of bed or move her lower extremities much due to pain in low back Objective Imaging CT scan - abdomen: Radiologist's impression: 1. Aorta, as well as abdominal and pelvic vasculature demonstrates no areas of hemodynamically significant stenosis, vascular occlusion or aneurysmal dilation. 2. Diverticulosis. 3. Inferior L1 vertebral body fracture with extension to the right facet joint and lamina. Appearance appears to be acute/subacute secondary to adjacent stranding in the perivertebral fat. Labs Result Diagrams: 01/25/18 02:02 01/25/18 02:02 Labs: Laboratory Results - last 24 hr 01/25/18 01/25/18 01/25/18 02:02 02:02 02:02 WBC 8.6 RBC 4.64 Hgb 13.7 Hct 42.0 MCV 90.5 MCH 29.5 MCHC 32.6 RDW 13.2 Plt Count 309 Neut % (Auto) 84.7 H Lymph % (Auto) 9.0 L [place] % (Auto) 5.3 Eos % (Auto) 0.5 L Baso % (Auto) 0.5 Neut # (Auto) 7300 H Sodium 141 Potassium 4.3 Chloride 100 Carbon Dioxide 29 BUN 24 H Creatinine 0.80 Estimated GFR > 60.0 BUN/Creatinine Ratio 30.0 H Glucose 117 H Lactate 0.6 L Calcium 9.9 Total Bilirubin 0.5 AST 22 ALT 21 Alkaline Phosphatase 105 Total Protein 8.3 H Albumin 4.3 Globulin 4.0 Albumin/Globulin Ratio 1.1 Urine Color Urine Appearance Urine pH Ur Specific [place] Urine Protein Urine Glucose (UA) Urine Ketones Urine Occult Blood Urine Nitrate Urine Bilirubin Urine Urobilinogen Ur Leukocyte Esterase Urine RBC Urine WBC Ur Squamous Epith Cells Urine Bacteria Ur Culture Indicated? Micro UA Comment 01/25/18 03:35 WBC RBC Hgb Hct MCV MCH MCHC RDW Plt Count Neut % (Auto) Lymph % (Auto) [place] % (Auto) Eos % (Auto) Baso % (Auto) Neut # (Auto) Sodium Potassium Chloride Carbon Dioxide BUN Creatinine Estimated GFR BUN/Creatinine Ratio Glucose Lactate Calcium Total Bilirubin AST ALT Alkaline Phosphatase Total Protein Albumin Globulin Albumin/Globulin Ratio Urine Color Yellow Urine Appearance Sl cloudy Urine pH 7.5 Ur Specific [place] 1.020 Urine Protein Negative Urine Glucose (UA) Negative Urine Ketones 1+ H Urine Occult Blood 1+ H Urine Nitrate Negative Urine Bilirubin Negative Urine Urobilinogen 0.2 Ur Leukocyte Esterase 2+ H Urine RBC 5-10/hpf H Urine WBC 10-30/hpf H Ur Squamous Epith Cells 0-1 /hpf Urine Bacteria Few (2-10) H Ur Culture Indicated? Specimen cultured Micro UA Comment Not Reportable Assessment & Plan Plan: Assessment/Plan Narrative: 1. Severe back pain with probable new L1 compression fracture-patient obviously cannot return home to independent living given her inability to function at all. Will continue with oral and/or IV pain relief, limited oral benzodiazepines for muscle spasm, and physical therapy. Will also have Orthopedic surgery see her if perhaps something like a kyphoplasty or other intervention might provide more immediate relief. I suspect patient will not be a good candidate for same and will likely have slow recovery given the chronic nature of her back issues. Therefore she will also likely need placement in alternate living facility until she heals more appropriately. I will also start her on some calcitonin nasal spray for which there is some evidence that this can provide some more immediate relief through some hormonal manipulation. This would be for pain relief and control around the setting of a acute lumbar compression fracture not for long-term treatment of her osteoporosis which is being treated separately with Fosamax. 2. Severe hypertension-likely secondary to patient's pain. Will increase her dose of beta-joanne which she is on chronically but also place some topical nitrates which can be removed if and when her pain relief is improved and her blood pressure comes down which I suspect will happen in the next 24 hr sometime. 3. History of chronic GI bleeding with evidence of probable Sergey lesions- continue iron replacement therapy. No evidence of active bleeding at this time. She has actually been asymptomatic all along even with prior episodes but blood counts are stable 4. Status post nephrectomy-as were treating patient for remember she only has 1 kidney, even though her renal function remains normal with an estimated GFR greater than 60
--- NOTE | 2018-01-25 10:01 | PC.NURSE ---
09oo finished breakfast, plan transfer to acute care, seems more relaxed after vicodin, states feels good at this time.
[2018-01-25] MEDS: NITROGLYCERIN OINT 1 INCH/GM OINT...G. TOP (10:30)
[2018-01-25] MEDS: FERROUS SULFATE 325 MG TABLET PO ×2 (10:30→20:28)
[2018-01-25] MEDS: CALCITONIN,SALMON, NASAL SPRAY 1 SPRAYS NASAL (10:30)
[2018-01-25] MEDS: BISACODYL 5 MG TABLET 10 MG PO (10:32)
[2018-01-25] MEDS: GABAPENTIN 600 MG TABLET PO ×2 (10:32→21:10)
[2018-01-25] MEDS: PANTOPRAZOLE 20 MG TABLET PO (10:33)
[2018-01-25] MEDS: ONDANSETRON 4 MG/2 ML INJ IV (10:33)
[2018-01-25] MEDS: OXYCODONE IR 5 MG TABLET PO ×2 (10:43)
[2018-01-25] MEDS: METOPROLOL 50 MG TABLET PO ×2 (10:47→20:28)
[2018-01-25] MEDS: HYDROMORPHONE 2 MG INJ 1 MG IV (11:31)
[2018-01-25] MEDS: DOCUSATE 100 MG CAPSULE PO ×2 (12:29→20:28)
[2018-01-25] MEDS: OXYCODONE IR 10 MG TABLET PO ×2 (14:26→20:28)
[2018-01-25] MEDS: diazePAM 2 MG TABLET PO (14:26)
--- NOTE | 2018-01-25 15:11 | PC.ADMIT ---
[id number] [facility] [address] Admission Note: /LATE ENTRY: PATIENT C/O 9/10 PAIN AFTER TRANSF FROM STRETCHER TO BED BY SLIDER BOARD. SEE EMAR FOR MEDICATIONS PROVIDED. CMS INTACT. EQUAL STRENGTH TO BLE. STRONG DISTAL PEDAL PULSES. PATIENT REPORTS THE DILAUDID WORKS THE BEST HER PAIN EVENTUALLY CAME DOWN TO 3/10. DR. PICKERING ROUNDED ON PATIENT THIS SHIFT. DR. LORA CALLED. SHE ORDERED A BACK BRACE. BED REST UNTIL BACK BRACE IN PLACE. LOGROLL IN BED. HODGES PLACED, RETURN OF CLEAR YELLOW URINE, TOLERATED WELL. INSTRUCTED TO ASK FOR ASSIST TO REPOSITION IN BED NEEDED. VERBAL TEACHING R/T LOG ROLLING PROVIDED. ORIENTED TO CALL LIGHT SYSTEM. The patient,Fadumo Ny,77 y/o, was given written information regarding hospital policies, unit procedures and contact persons. Patient's smoking status: Former smoker. Vital Signs - 8 hr 01/25/18 09:25 01/25/18 09:30 01/25/18 11:18 Temperature 98.1 F 100.2 F H 100.2 F H Pulse Rate 72 90 86 Respiratory Rate 16 16 Blood Pressure 186/100 H 195/114 H 160/107 H Pulse Oximetry 99 98 98 01/25/18 12:30 Temperature Pulse Rate 81 Respiratory Rate Blood Pressure 139/87 H Pulse Oximetry
--- NOTE | 2018-01-25 15:26 | PT.IPTN ---
Physical Therapy Treatment Note M2 PT-IP Current Condition Start: 01/25/18 08:19 Freq: Status: Active Protocol: Document 01/25/18 15:21 IJS (Rec: 01/25/18 15:26 IJ [id number]) Physical Therapy Current Condition Current Condition Evaluation Date 01/25/18 Treatment Diagnosis L1 fracture, impaired mobility Onset Date 01/23/18 Precautions Lumbar Precautions Log Roll No Twisting Limit Bending Other Precautions Brace to be worn when upright and ambulating, ok to take off for hygene. Weight Bearing Status Weight Bearing Status Weight Bear as Tolerated M3 PT-IP Subjective Start: 01/25/18 08:19 Freq: Status: Active Protocol: Document 01/25/18 15:21 IJS (Rec: 01/25/18 15:26 IJ [id number]) Subjective Physical Therapy Visit Type Type Treatment Note Visit Start Time 14:45 Visit Stop Time 15:10 Total Visit Minutes 25 Number of AUTHORIZATION MANAGER Visits 0 Physical Therapy Visit Comments Patient Comments Agrees to let us fit her with the TLSO but requesting to move very slowly. Patient/Caregiver Goals To be independent again, obtain pain control. Therapy Pain Assessment Pain When Pain Assessed During Mobility M4 PT-IP Mobility and Gait Start: 01/25/18 08:19 Freq: Status: Active Protocol: Document 01/25/18 08:22 RS (Rec: 01/25/18 08:44 RS [id number]) PT-Bed Mobility Assessment Rolling Type of Rolling Log Rolling Level of Assist Maximal Assistance 2 Person Assistance Supine to Sit Supine to Sit Total Assistance 2 Person Assistance Sit to Supine Sit to Supine Total Assistance 2 Person Assistance Scooting Scooting to Edge of Bed Dependent Scooting Up and Down in Bed Dependent Bed Transfer Assessment Devices Bed Transfer Assistive Devices Mechanical Lift Technique Bed Transfer Technique Mechanical Lift General Evaluation Overall Bed Transfer Ability Mechanical Lift Comments Factors Limiting Bed Transfer Decreased Strength Pain Bed Transfer Comments Pt in too much pain to participate in any way and gets immediate spasms with any voluntary movements, pt is dependent for all mobility at this time. Gait Assessment Comments Gait Comments unable to perform/assess due to pain Stair Climbing Assessment Comments Stair Climbing Comments unable to perform/assess due to pain M5 PT-IP Objective Assessments Start: 01/25/18 08:19 Freq: Status: Active Protocol: Document 01/25/18 08:22 RS (Rec: 01/25/18 08:44 RS [id number]) Orientation Orientation/Cognition Level of Alertness Alert Orientation Name Age Birthday Month Date Year Day of Week Place Situation Language Function Ability No Deficits Noted Safety Awareness Understands Safety Issues Memory Description No Deficits Noted Gross Range of Motion Upper Extremity ROM Assessment Within Functional Limits Lower Extremity ROM Impairments likely WFL structurally but limited by pain Strength Upper Extremity Strength Assessment Within Functional Limits Comments Strength Comments limited due to pain M6 PT-IP Treatment Start: 01/25/18 08:19 Freq: Status: Active Protocol: Document 01/25/18 15:21 IJS (Rec: 01/25/18 15:26 [facility] [id number]) Physical Therapy Treatment Exercises Exercises Heel Slides Education Education Provided Precautions Brace Education Donning Equipment Issued Equipment Type and Company Assisted with log rolling and donning the off the shelf TLSO brace with Bita from [employer] [facility]. Other Treatments Other Treatment Performed Patient declined any other therapy today, not ready to try getting up. M
--- NOTE | 2018-01-25 15:38 | PT.IPTN ---
Physical Therapy Treatment Note M2 PT-IP Current Condition Start: 01/25/18 08:19 Freq: Status: Active Protocol: Document 01/25/18 15:21 IJS (Rec: 01/25/18 15:26 IJ [id number]) Physical Therapy Current Condition Current Condition Evaluation Date 01/25/18 Treatment Diagnosis L1 fracture, impaired mobility Onset Date 01/23/18 Precautions Lumbar Precautions Log Roll No Twisting Limit Bending Other Precautions Brace to be worn when upright and ambulating, ok to take off for hygene. Weight Bearing Status Weight Bearing Status Weight Bear as Tolerated M3 PT-IP Subjective Start: 01/25/18 08:19 Freq: Status: Active Protocol: Document 01/25/18 15:21 IJS (Rec: 01/25/18 15:26 IJ [id number]) Subjective Physical Therapy Visit Type Type Treatment Note Visit Start Time 14:45 Visit Stop Time 15:10 Total Visit Minutes 25 Number of MANGLE CATCHER Visits 0 Physical Therapy Visit Comments Patient Comments Agrees to let us fit her with the TLSO but requesting to move very slowly. Patient/Caregiver Goals To be independent again, obtain pain control. Therapy Pain Assessment Pain When Pain Assessed During Mobility M4 PT-IP Mobility and Gait Start: 01/25/18 08:19 Freq: Status: Active Protocol: Protocol: Document 01/25/18 15:21 IJS (Rec: 01/25/18 15:26 [facility] [id number]) Physical Therapy Treatment Exercises Exercises Heel Slides Education Education Provided Precautions Brace Education Donning Equipment Issued Equipment Type and Company Assisted with log rolling and donning the off the shelf TLSO brace with Bita from [employer] [facility] [facility]. Pt. was Mod A X2 with assist to reach for the railing on both sides. Have to move very slowly. Other Treatments Other Treatment Performed Patient declined any other therapy today, not ready to try getting up. Donned the SCD's and positioned with pillow under legs to help float heels. M7 PT-IP Assessment and Plan Start: 01/25/18 08:19 Freq: Status: Active Protocol: Document 01/25/18 08:22 RS (Rec: 01/25/18 08:44 RS [id number]) PT Summary Assessment and Plan Potential Rehabilitation Potential Fair Status of Condition at Evaluation Evolving Summary Impairments Pain Strength Bed Mobility Transfers Gait Progress Towards Goals Slow Progress due to Pain Assessment Summary Pt presents with significant mobility impairments due to pain and pain induced weakness . Pt cannot tolerate any mobility at this time and is completely dependent. This is significantly below pt's reported functional baseline. It is not safe for pt to return home at this time, recommend pt continue with acute therapy and then transition to SNF rehab for ongoing therapy until pt is ind enough to return home safely. Pt in agreement with this plan. Goals Bed Mobility Goal Minimal Assistance Transfer Goal Minimal Assistance Front Wheeled Walker Gait Goal Minimal Assistance Front Wheel Walker Gait Distance 50 Days to Meet Goals 3 Frequency of Treatment Frequency Of Treatment Once a Day Treatment Plan Physical Therapy Treatment Plan Bed Mobility Training Transfer Training Gait Training Therapeutic Exercise Discharge Planning Recommendations To Nursing Amount of Assist Needed Mechanical Lift Discharge Recommendations PT Discharge Recommendations SNF Rehab
--- NOTE | 2018-01-25 17:29 | PC.NURSE ---
Addendum entered by Libra Akers R.N. 01/25/18 21:35: Relatively uneventful evening. Pt med at 2030 w/oxycodone w/good relief. Resting quietly at this time. Brace remains in place. HL intact/patent. F/C patent clear urine. Call light w/in reach. Continue w/ plan of care. Original Note: Pt resting quietly. Encouraged to take deep breaths, SpO2 now 93% RA. HL in the right hand intact/patent. Back brace in place. Pt teaching as to log rolling. Milian cath patent clear urine. Call light w/in reach.
[2018-01-25] MEDS: SENNOSIDES 8.6 MG TABLET 17.2 MG PO (20:29)
[2018-01-26] VITALS (24 sets, daily range): BP systolic 147–193; BP diastolic 07–118; PULSE 76–93; RESP 16–18; TEMP 36.8–37.3; O2SAT 86–97
[2018-01-26] MEDS: CALCIUM CARBONATE 500 MG TAB 1000 MG PO (01:17)
[2018-01-26] MEDS: OXYCODONE IR 5 MG TABLET PO ×3 (01:36→20:16)
--- NOTE | 2018-01-26 05:17 | PC.NURSE ---
Body Liner Note: 0000: Dr. Cook notified by phone of pt needing Tums. HOB elevated 20 degrees by patient. Pt is tolerating back brace well. 0110: Dr. Cook notified by phone of pt having O2 sats below 88 while asleep. RT eval and treat order received. RT at bedside to assess pt. Pt was placed on O2 2L/NC by RT.
[2018-01-26] MEDS: PANTOPRAZOLE 20 MG TABLET PO (05:33)
--- NOTE | 2018-01-26 07:59 | PM.CN ---
History of Present Illness Date Patient Seen: 01/26/18 Time Patient Seen: 07:59 Chief complaint: Closed L1 vertebral fracture, hypertension Reason for consult: Unstable L1 fracture Requesting provider: Charles Castaneda Narrative: Fadumo notes that she developed severe back pain without a specific history of a fall or injury. She is normally physically active she lives independently she drives and does a moderate amount of walking. Her hobbies include sedentary things like knitting. She notes some progressive stiffness in her spine and has a known longstanding history of scoliosis. She manages back pain by laying down about once a day. 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) Glaucoma (Chronic ~11/2016) Social History marital status: number of children: 2 household members: none lives independently: Yes caregiver/support person: Yes housing: house pets and animals: Yes education level: college (3 years) occupational status: other (Retired) 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 kerry/cheondoism: Zoroastrian travel history: other ([place]) leisure activities: reading and other (Meetings, Trips with granddaughter, knit, cooks.) Smoking Status: Former smoker Tobacco: How many years used: 8 Smokeless tobacco user: other (Cigarettes) quit status: quit date established (1956) second hand exposure: No alcohol intake: current substance use type: does not use Meds Home Medications Medication Instructions Recorded Confirmed Type vitamin E 400 unit PO DAILY #0 07/08/11 01/25/18 History multivitamin 1 cap PO Q DAY #0 02/18/12 01/25/18 History ferrous sulfate [Iron (ferrous 325 mg PO BID #60 tab 11/19/16 01/25/18 Rx sulfate)] nortriptyline 50 mg PO HS #180 cap 09/08/17 01/25/18 Rx gabapentin [Neurontin] 600 mg PO BID #60 tab 11/09/17 01/25/18 Rx metoprolol tartrate 25 mg PO BID #60 tab 11/15/17 01/25/18 Rx omeprazole 40 mg capsule,delayed 40 mg PO QDAY #30 cap 01/04/18 01/25/18 Rx release alendronate 70 mg tablet 70 mg PO QWEEK #12 tab 01/18/18 01/25/18 Rx hydrocodone 5 mg-acetaminophen 325 1 - 2 tab PO Q6HP PRN #40 tab 01/18/18 01/25/18 Rx mg tablet Allergies Allergy/AdvReac Type Severity Reaction Status Date / Time No Known Drug Allergies Allergy Verified 01/18/18 10:21 Review of Systems Review of Systems Her last bowel movement was about 4 days ago she notes that she does feel constipated but she has been passing gas, she is not having problems voiding buttock catheter was placed due to immobility yesterday, she notes that she has warm but she has not had any problems with recent recent cough or chest pain, she denies numbness or tingling in bilateral lower extremities and does not note significant weakness. Exam Vital Signs (past 8 hours): - 01/26/18 00:30 01/26/18 01:26 01/26/18 04:30 Temperature 98.2 F Pulse Rate 76 Respiratory Rate 16 Blood Pressure 152/95 H Pulse Oximetry 86 L 94 93 Oxygen Delivery Method Nasal Cannula Oxygen Flow Rate 3 Narrative Exam Narrative: She is alert she is oriented she is resting comfortably in her bed and does not appear to be in acute distress, lungs are clear bilaterally cor regular rate and rhythm neck is supple and soft with no carotid bruit abdomen is moderately distended with active bowel tones with mild tenderness which is diffuse, backs tender to palpation at the thoracolumbar junction, there is mild palpable paraspinous muscle spasms, she is able to fire bilateral lower extremities and can do with normal strength in her tibialis anterior EHL gastrocsoleus bilaterally there is some weakness of hip flexors and her quads and hamstrings secondary to increased low back pain but is nonfocal, deep tendon reflexes are 2+ at the knees 1+ at the ankles there is no clonus sensations noted to be intact. Objective Labs Result Diagrams: 01/25/18 02:02 01/25/18 02:02 Labs: CT scan of her lumbar spine shows an L1 fracture to the inferior aspect of the L1 vertebral body with the crack which extends posteriorly along the posterior elements and into the L1 neural foramen, she does have some moderate ankle [place] of her entire lumbar spine, she also has a severe scoliosis, there is no specific severe compressive pathology noted along with dural sac. 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 It is minimally displaced but she does have pre-existing fairly severe scoliosis and is involved in her curve. I discussed her radiographs with Dr. Bullard and we both agree that it is reasonable to start initial management with the brace and the TLSO was ordered yesterday. It has been fitted and will attempt to get her up out of bed and ambulating with physical therapy today. She needs to use her brace multimedia specialist when she is ambulating. The plan for her follow-up of her spine is to return to clinic in approximately a week with x-rays and we will also get x-rays in her brace today for a baseline lumbar spine x-ray in her brace standing in the department of possible. She also has a mild ileus secondary to her lumbar spine fracture we will attempt to mobilizer on and place her on a bowel retain in order to expedite resolution of her ileus and appropriate bowel treatment. She has a significant lumbar spine fracture and may require assistance or short-term rehab stay.
--- NOTE | 2018-01-26 09:21 | CM.DANOTE ---
Discharge Planning/Care Management DCPL assessment: case received, EMR reviewed, discussed POC with consulting ortho surgeon Dr. Lynn and met with pt. Introduced self and role. OF note: UR RN Emil confirms that at this point the actual admission status order is for OBS: full review is in process. Pt is a 77 year old female who admitted to care of PCP: Dr. Castaneda yesterday. Surgery is consulted. TLSO was ordered and delivered and fitted yesterday. Payer: [employer] Medicare. Pt at this point is noted to be in pain and immobile. PT will be seeing her today. She notes she is not able to eat much as is nauseated. Milian cath in place due to immobility. No BM thus far x 4 days. Pt readily agrees with Dr. Lynn that snf rehab will be needed. Current OBS status is discussed. SNF choice list: discussed including network ?. Pt states she has been authorized for [facility] in the past but due to no bed availability had to go to snf in [place]. She wishes [facility] if at all possible. Referral given now to [facility]. She cautions that [facility] can take a few days to obtain authorization, that they are not open on weekends or holidays but she will begin the review and auth process now. OT/PT orders are confirmed. P: at this point: [facility] when stable for same and when [employer] Medicare authorizes. CM Discharge Assessment Start: 01/26/18 09:17 Freq: Status: Active Protocol: Document 01/26/18 09:17 ITV (Rec: 01/26/18 09:21 ITV [id number]) Discharge Planning Assessment History Provided By Patient Medical Record Has Patient been admitted in last 30 No days? Is this patient on Medicare? No Prior Living Arrangements House Household Members none Type of transporation used prior to Drives own vehicle admit Independent with ADL's Yes: mobility limited somewhat by chronic back pain/ ideopathic scoliosis Is patient alert and oriented? Yes Caregiver for Another No Patient Discharge Plan Description Senior Living Facility Referrals Initiated Senior Living Comment refereral given now to [facility]. [facility] snf [facility] process. Discharge Plan Senior Living Facility Review Status In Process Next Review Type Continued Stay Review
[2018-01-26] MEDS: METOPROLOL 50 MG TABLET PO ×2 (09:25→20:15)
[2018-01-26] MEDS: FERROUS SULFATE 325 MG TABLET PO ×2 (09:25→20:15)
[2018-01-26] MEDS: GABAPENTIN 600 MG TABLET PO ×2 (09:25→20:15)
[2018-01-26] MEDS: CALCITONIN,SALMON, NASAL SPRAY 1 SPRAYS NASAL (09:25)
[2018-01-26] MEDS: DOCUSATE 100 MG CAPSULE PO ×2 (09:25→20:15)
[2018-01-26] MEDS: BISACODYL 5 MG TABLET 10 MG PO (10:12)
[2018-01-26] MEDS: NITROGLYCERIN OINT 1 INCH/GM OINT...G. TOP ×4 (10:23→20:15)
--- NOTE | 2018-01-26 11:09 | PM.PN.1 ---
Subjective Date Patient Seen: 01/26/18 Time Patient Seen: 09:09 Interval history: Patient still having fair amount of pain from her compression fracture. Tolerating the brace that was applied by orthopedist. Main complaint now is her nausea has difficult time taking medications difficult time moving because of her nausea. Pain management seems to be adequate at this time. Blood pressure also apparently had become challenging as it has persistently been elevated Exam Vital Signs (past 8 hours): - 01/26/18 04:30 01/26/18 08:00 01/26/18 10:23 Temperature 98.2 F 98.3 F Pulse Rate 76 86 Respiratory Rate 16 18 Blood Pressure 152/95 H 155/93 H 159/114 H Pulse Oximetry 93 92 01/26/18 10:40 01/26/18 10:55 Temperature Pulse Rate Respiratory Rate Blood Pressure Pulse Oximetry 97 92 Fraction of Inspired Oxygen 21 Oxygen Delivery Method Room Air Oxygen Flow Rate 0 Narrative Exam Narrative: The patient is resting quietly in bed with brace in place Milian catheter draining. Compression stockings applied She is in the process of trying to stand up apparently x-rays ordered for stands she is 88 produce a because of nausea Objective Labs Result Diagrams: 01/25/18 02:02 01/25/18 02:02 Assessment & Plan Plan: Assessment/Plan Narrative: Patient's back pain is adequately managed by the brace and by pain medication. She may have a low-grade ileus that what complicate recovery She should remain in the hospital because she will be requiring observation and monitoring for neural compromise. 2. Blood pressure management is problematic will add amlodipine to the program Quality VTE Deep Vein Thrombosis/Pulmonary Embolism Present on Admission: No
[2018-01-26] MEDS: AMLODIPINE 5 MG TABLET PO ×2 (11:34→16:34)
[2018-01-26] MEDS: ONDANSETRON 4 MG/2 ML INJ IV (11:35)
--- NOTE | 2018-01-26 11:49 | OT.IP.TRT ---
Current Diagnoses Other osteoporosis with current pathological fracture, vertebra(e), initial encounter for fracture (01/25/18) Occupational Therapy Treatment Note M3 OT- IP Subjective and Pain Start: 01/26/18 11:48 Freq: Status: Active Protocol: Document 01/26/18 11:48 [facility] (Rec: 01/26/18 11:49 [facility] [id number]) OT- Subjective Occupational Therapy Visit Type Type Patient Unavailable Notes Pt having high blood pressure today , therefore to see pt tomorrow for OT eval when pt more medically stable.
--- NOTE | 2018-01-26 11:58 | PT.IPTN ---
Current Diagnoses Other osteoporosis with current pathological fracture, vertebra(e), initial encounter for fracture (01/25/18) Physical Therapy Treatment Note M2 PT-IP Current Condition Start: 01/25/18 08:19 Freq: Status: Active Protocol: Document 01/25/18 15:21 IJS (Rec: 01/25/18 15:26 IJS [id number]) Physical Therapy Current Condition Current Condition Evaluation Date 01/25/18 Treatment Diagnosis L1 fracture, impaired mobility Onset Date 01/23/18 Precautions Lumbar Precautions Log Roll No Twisting Limit Bending Other Precautions Brace to be worn when upright and ambulating, ok to take off for hygene. Weight Bearing Status Weight Bearing Status Weight Bear as Tolerated M3 PT-IP Subjective Start: 01/25/18 08:19 Freq: Status: Active Protocol: Document 01/26/18 11:58 GGD (Rec: 01/26/18 11:58 GGD [id number]) Subjective Physical Therapy Visit Type Type Patient Unavailable Notes Hold due to high BP. M4 PT-IP Mobility and Gait Start: 01/25/18 08:19 Freq: Status: Active Protocol: Document 01/25/18 08:22 RS (Rec: 01/25/18 08:44 RS [id number]) PT-Bed Mobility Assessment Rolling Type of Rolling Log Rolling Level of Assist Maximal Assistance 2 Person Assistance Supine to Sit Supine to Sit Total Assistance 2 Person Assistance Sit to Supine Sit to Supine Total Assistance 2 Person Assistance Scooting Scooting to Edge of Bed Dependent Scooting Up and Down in Bed Dependent Bed Transfer Assessment Devices Bed Transfer Assistive Devices Mechanical Lift Technique Bed Transfer Technique Mechanical Lift General Evaluation Overall Bed Transfer Ability Mechanical Lift Comments Factors Limiting Bed Transfer Decreased Strength Pain Bed Transfer Comments Pt in too much pain to participate in any way and gets immediate spasms with any voluntary movements, pt is dependent for all mobility at this time. Gait Assessment Comments Gait Comments unable to perform/assess due to pain Stair Climbing Assessment Comments Stair Climbing Comments unable to perform/assess due to pain
[2018-01-26] MEDS: diazePAM 2 MG TABLET PO (14:38)
--- NOTE | 2018-01-26 15:05 | PT.IPTN ---
Current Diagnoses Other osteoporosis with current pathological fracture, vertebra(e), initial encounter for fracture (01/25/18) Physical Therapy Treatment Note M2 PT-IP Current Condition Start: 01/25/18 08:19 Freq: Status: Active Protocol: Document 01/25/18 15:21 IJS (Rec: 01/25/18 15:26 IJS [id number]) Physical Therapy Current Condition Current Condition Evaluation Date 01/25/18 Treatment Diagnosis L1 fracture, impaired mobility Onset Date 01/23/18 Precautions Lumbar Precautions Log Roll No Twisting Limit Bending Other Precautions Brace to be worn when upright and ambulating, ok to take off for hygene. Weight Bearing Status Weight Bearing Status Weight Bear as Tolerated M3 PT-IP Subjective Start: 01/25/18 08:19 Freq: Status: Active Protocol: Document 01/26/18 15:04 GGD (Rec: 01/26/18 15:05 GGD [id number]) Subjective Physical Therapy Visit Type Type Patient Unavailable Notes Hold PT, due to high BP 193/ 115. will see in AM. M4 PT-IP Mobility and Gait Start: 01/25/18 08:19 Freq: Status: Active Protocol: Document 01/25/18 08:22 RS (Rec: 01/25/18 08:44 RS [id number]) PT-Bed Mobility Assessment Rolling Type of Rolling Log Rolling Level of Assist Maximal Assistance 2 Person Assistance Supine to Sit Supine to Sit Total Assistance 2 Person Assistance Sit to Supine Sit to Supine Total Assistance 2 Person Assistance Scooting Scooting to Edge of Bed Dependent Scooting Up and Down in Bed Dependent Bed Transfer Assessment Devices Bed Transfer Assistive Devices Mechanical Lift Technique Bed Transfer Technique Mechanical Lift General Evaluation Overall Bed Transfer Ability Mechanical Lift Comments Factors Limiting Bed Transfer Decreased Strength Pain Bed Transfer Comments Pt in too much pain to participate in any way and gets immediate spasms with any voluntary movements, pt is dependent for all mobility at this time. Gait Assessment Comments Gait Comments unable to perform/assess due to pain Stair Climbing Assessment Comments Stair Climbing Comments unable to perform/assess due to pain M5 PT-IP Objective Assessments Start: 01/25/18 08:19 Freq: Status: Active Protocol: Document 01/25/18 08:22 RS (Rec: 01/25/18 08:44 RS [id number]) Orientation Orientation/Cognition Level of Alertness Alert Orientation Name Age Birthday Month Date Year Day of Week Place Situation Language Function Ability No Deficits Noted Safety Awareness Understands Safety Issues Memory Description No Deficits Noted Gross Range of Motion Upper Extremity ROM Assessment Within Functional Limits Lower Extremity ROM Impairments likely WFL structurally but limited by pain Strength Upper Extremity Strength Assessment Within Functional Limits Comments Strength Comments limited due to pain M6 PT-IP Treatment Start: 01/25/18 08:19 Freq: Status: Active Protocol: Document 01/25/18 15:21 IJS (Rec: 01/25/18 15:26 IJ [id number]) Physical Therapy Treatment Exercises Exercises Heel Slides Education Education Provided Precautions Brace Education Donning Equipment Issued Equipment Type and Company Assisted with log rolling and donning the off the shelf TLSO brace with Bita from [employer]. Pt. was Mod A X2 with assist to reach for the railing on both sides. Have to move very slowly. Other Treatments Other Treatment Performed Patient declined any other therapy today, not ready to try getting up. Donned the SCD's and positioned with pillow under legs to help float heels. M7 PT-IP Assessment and Plan Start: 01/25/18 08:19 Freq: Status: Active Protocol: Document 01/25/18 08:22 RS (Rec: 01/25/18 08:44 RS [id number]) PT Summary Assessment and Plan Potential Rehabilitation Potential Fair Status of Condition at Evaluation Evolving Summary Impairments Pain Strength Bed Mobility Transfers Gait Progress Towards Goals Slow Progress due to Pain Assessment Summary Pt presents with significant mobility impairments due to pain and pain induced weakness . Pt cannot tolerate any mobility at this time and is completely dependent. This is significantly below pt's reported functional baseline. It is not safe for pt to return home at this time, recommend pt continue with acute therapy and then transition to SNF rehab for ongoing therapy until pt is ind enough to return home safely. Pt in agreement with this plan. Goals Bed Mobility Goal Minimal Assistance Transfer Goal Minimal Assistance Front Wheeled Walker Gait Goal Minimal Assistance Front Wheel Walker Gait Distance 50 Days to Meet Goals 3 Frequency of Treatment Frequency Of Treatment Once a Day Treatment Plan Physical Therapy Treatment Plan Bed Mobility Training Transfer Training Gait Training Therapeutic Exercise Discharge Planning Recommendations To Nursing Amount of Assist Needed Mechanical Lift Discharge Recommendations PT Discharge Recommendations SNF Rehab
--- NOTE | 2018-01-26 16:03 | PC.NURSE ---
1500 Pt has been hyper tensive this shift. this has been reported to Dr Begum on his rounds today. Pt was med per order. Pt c/o spasm w/minimal movement, Pt medicated for pain and spams and c/o nausea, and c/o constipation. Pt B/P remains high, last b/p at 1500 193/115. Call out to Dr Begum. PT & OT will not work with Pt while the B/p so high. Gave report to oncoming shift to f/u W/Dr Begum. Pt was Medicated w/po valium for the spasms. Milian remains in place as pt not mobile/ pain this shift.
[2018-01-26] MEDS: HYDROMORPHONE 0.5 MG INJ IV (16:26)
--- NOTE | 2018-01-26 17:32 | PC.NURSE ---
patient bp is still elevated, last done at 1707: 158-116. MD aware and has made a few changes to medication orders. Per MD, keep schuler in due to patient immobility. patient pain was 6/10 and after medication and reassessment, patient states pain level is tolerable and much better. patient is eating in bed at this time with call light in reach. will continue to monitor.
[2018-01-26] MEDS: SENNOSIDES 8.6 MG TABLET 17.2 MG PO (20:15)
[2018-01-26] MEDS: MAGNESIUM HYDROXIDE 30 ML UDC PO (20:16)
[2018-01-27] VITALS (18 sets, daily range): BP systolic 121–146; BP diastolic 52–92; PULSE 79–89; RESP 15–18; TEMP 36.6–37.3; O2SAT 89–96
[2018-01-27] MEDS: OXYCODONE IR 5 MG TABLET PO ×4 (01:21→17:27)
[2018-01-27] MEDS: PANTOPRAZOLE 20 MG TABLET PO (06:22)
[2018-01-27] MEDS: FERROUS SULFATE 325 MG TABLET PO ×2 (08:15→20:52)
[2018-01-27] MEDS: CALCITONIN,SALMON, NASAL SPRAY 1 SPRAYS NASAL (08:15)
[2018-01-27] MEDS: GABAPENTIN 600 MG TABLET PO ×2 (08:15→20:52)
[2018-01-27] MEDS: DOCUSATE 100 MG CAPSULE PO (08:16)
[2018-01-27] MEDS: AMLODIPINE 5 MG TABLET 10 MG PO (08:16)
[2018-01-27] MEDS: POLYETHYLENE GLYCOL 3350 17 GM POWD.PACK PO (08:16)
[2018-01-27] MEDS: METOPROLOL 50 MG TABLET PO ×2 (08:16→20:52)
[2018-01-27] MEDS: BISACODYL 5 MG TABLET 10 MG PO (08:25)
--- NOTE | 2018-01-27 08:53 | PM.PN.1 ---
Subjective Date Patient Seen: 01/27/18 Time Patient Seen: 08:53 Interval history: Patient reports the oral pain medicine seems to be working better controlling her pain. She still having a lot of pain but it seems to be improved. Her blood pressure is better over the last 12 hr or so so I think there is probably a correlation there Is struggling to have a bowel movement however. Actual like to get up out of bed as she thinks that will facilitate a bowel movement but is of course very apprehensive about the pain that will produce. Has not really been up out of bed at all. Still has lots of pain even with mobility within the bed. Exam Vital Signs (past 8 hours): - 01/27/18 01:06 01/27/18 01:17 01/27/18 01:32 Temperature 97.9 F Pulse Rate 84 Respiratory Rate 16 Blood Pressure 146/87 H 146/87 H 141/90 H Pulse Oximetry 89 L 01/27/18 03:16 01/27/18 04:08 01/27/18 04:10 Temperature 97.8 F Pulse Rate 83 Respiratory Rate 16 Blood Pressure 143/88 H 143/88 H Pulse Oximetry 94 96 01/27/18 07:55 Temperature 98.5 F Pulse Rate 89 Respiratory Rate 18 Blood Pressure 125/89 H Pulse Oximetry 95 Fraction of Inspired Oxygen 21 Oxygen Delivery Method Nasal Cannula Oxygen Flow Rate 1 Narrative Exam Narrative: Unchanged from previous Objective Labs Result Diagrams: 01/25/18 02:02 01/25/18 02:02 Assessment & Plan Plan: Assessment/Plan Narrative: 1. Compression fracture-continue management as per Orthopedic surgery. Continue with current pain med since patient is reporting improvement in pain. Maybe the brace is helping as well. Will need to try and ambulate her least mobilize her to some degree. 2. Hypertension-number seem to be better over the last 12+ hours. No change in medication for today thus far. If need be will increase meds/doses. I do believe at some point once her pain is under better control her blood pressure will be much less of an issue. 3. GI-patient has multiple bowel regimen medications ordered. I agree with her that increased activity will be helpful. The narcotics and the compression fracture in of itself for also I think contributing factors to her persistent constipation, which is often seen in this setting. 4. Disposition-patient clearly will need to go to prison. Discussed with her at some length that at this point I am not recommending any my patients be admitted to [facility] because of care issues there. Therefore I would prefer that she be admitted to facility in [place] or perhaps [place]. Patient has personal experience with [facility] and would prefer not to go there. Perhaps [facility] or [facility] would have a space for her. If not then perhaps looking on [facility] would also be appropriate. Note: Greater than 30 minutes was spent evaluating the patient on the floor, including examining the patient, discussing clinical course with clinical and nursing staff, reviewing clinical course in the computer, preparing documentation and writing orders for continued management of care, discussing status with family as appropriate, reviewing plans for the next 24 hours with both patient/family and nursing staff as appropriate. Time Spent With Patient Time with patient: Greater than 35 minutes Quality VTE Deep Vein Thrombosis/Pulmonary Embolism Present on Admission: No
--- NOTE | 2018-01-27 08:57 | P.PN_ITS ---
Subjective Date Patient Seen: 01/27/18 Time Patient Seen: 08:53 Interval history: Patient reports the oral pain medicine seems to be working better controlling her pain. She still having a lot of pain but it seems to be improved. Her blood pressure is better over the last 12 hr or so so I think there is probably a correlation there Is struggling to have a bowel movement however. Actual like to get up out of bed as she thinks that will facilitate a bowel movement but is of course very apprehensive about the pain that will produce. Has not really been up out of bed at all. Still has lots of pain even with mobility within the bed. Exam Vital Signs (past 8 hours): - 01/27/18 01:06 01/27/18 01:17 01/27/18 01:32 Temperature 97.9 F Pulse Rate 84 Respiratory Rate 16 Blood Pressure 146/87 H 146/87 H 141/90 H Pulse Oximetry 89 L 01/27/18 03:16 01/27/18 04:08 01/27/18 04:10 Temperature 97.8 F Pulse Rate 83 Respiratory Rate 16 Blood Pressure 143/88 H 143/88 H Pulse Oximetry 94 96 01/27/18 07:55 Temperature 98.5 F Pulse Rate 89 Respiratory Rate 18 Blood Pressure 125/89 H Pulse Oximetry 95 Fraction of Inspired Oxygen 21 Oxygen Delivery Method Nasal Cannula Oxygen Flow Rate 1 Narrative Exam Narrative: Unchanged from previous Objective Labs Result Diagrams: 01/25/18 02:02 01/25/18 02:02 Assessment & Plan Plan: Assessment/Plan Narrative: 1. Compression fracture-continue management as per Orthopedic surgery. Continue with current pain med since patient is reporting improvement in pain. Maybe the brace is helping as well. Will need to try and ambulate her least mobilize her to some degree. 2. Hypertension-number seem to be better over the last 12+ hours. No change in medication for today thus far. If need be will increase meds/doses. I do believe at some point once her pain is under better control her blood pressure will be much less of an issue. 3. GI-patient has multiple bowel regimen medications ordered. I agree with her that increased activity will be helpful. The narcotics and the compression fracture in of itself for also I think contributing factors to her persistent constipation, which is often seen in this setting. 4. Disposition-patient clearly will need to go to group home. Discussed with her at some length that at this point I am not recommending any my patients be admitted to [facility] because of care issues there. Therefore I would prefer that she be admitted to facility in [place] or perhaps [place]. Patient has personal experience with [facility] and would prefer not to go there. Perhaps [facility] or [facility] would have a space for her. If not then perhaps looking on [facility] would also be appropriate. Note: Greater than 30 minutes was spent evaluating the patient on the floor, including examining the patient, discussing clinical course with clinical and nursing staff, reviewing clinical course in the computer, preparing documentation and writing orders for continued management of care, discussing status with family as appropriate, reviewing plans for the next 24 hours with both patient/family and nursing staff as appropriate. Time Spent With Patient Time with patient: Greater than 35 minutes Quality VTE Deep Vein Thrombosis/Pulmonary Embolism Present on Admission: No
--- NOTE | 2018-01-27 09:36 | P.PN_ITS ---
Subjective Date Patient Seen: 01/27/18 Time Patient Seen: 09:34 Interval history: Hospital day 3 with history of L1 compression fracture. She did have orthopedic consult done by Dr. Lynn on 01/26/2018. Does have TLSO brace in place. This seems to be helping her pain. Still limited function with ambulation and transfers. She has been seen by Dr. Castaneda today. Anticipate discharge to [facility] when she is stable for further care prior to going home. Denies any leg pain or numbness. Exam Vital Signs (past 8 hours): - 01/27/18 03:16 01/27/18 04:08 01/27/18 04:10 Temperature 97.8 F Pulse Rate 83 Respiratory Rate 16 Blood Pressure 143/88 H 143/88 H Pulse Oximetry 94 96 01/27/18 07:55 Temperature 98.5 F Pulse Rate 89 Respiratory Rate 18 Blood Pressure 125/89 H Pulse Oximetry 95 Fraction of Inspired Oxygen 21 Oxygen Delivery Method Nasal Cannula Oxygen Flow Rate 1 Narrative Exam Narrative: Alert, oriented no acute distress lying in bed with TLSO brace on. Legs. No calf pain or swelling. Objective Labs Result Diagrams: 01/25/18 02:02 01/25/18 02:02 Assessment & Plan Plan: Assessment/Plan Narrative: Assessment: L1 compression fracture Plan: Patient will continue with her TLSO brace for comfort. Pain medication as needed. Anticipate discharge to [facility] when she is stable by Dr. Castaneda. Quality VTE Deep Vein Thrombosis/Pulmonary Embolism Present on Admission: No
--- NOTE | 2018-01-27 09:55 | PT.IPTN ---
Current Diagnoses Other osteoporosis with current pathological fracture, vertebra(e), initial encounter for fracture (01/26/18) Physical Therapy Treatment Note M2 PT-IP Current Condition Start: 01/25/18 08:19 Freq: Status: Active Protocol: Document 01/25/18 15:21 IJS (Rec: 01/25/18 15:26 IJS [id number]) Physical Therapy Current Condition Current Condition Evaluation Date 01/25/18 Treatment Diagnosis L1 fracture, impaired mobility Onset Date 01/23/18 Precautions Lumbar Precautions Log Roll No Twisting Limit Bending Other Precautions Brace to be worn when upright and ambulating, ok to take off for hygene. Weight Bearing Status Weight Bearing Status Weight Bear as Tolerated M3 PT-IP Subjective Start: 01/25/18 08:19 Freq: Status: Active Protocol: Document 01/27/18 11:29 AB (Rec: 01/27/18 11:43 AB [id number]) Subjective Physical Therapy Visit Type Type Treatment Note Visit Start Time 09:55 Visit Stop Time 10:40 Total Visit Minutes 45 Number of CONTROL PANEL BUILDER Visits 0 Physical Therapy Visit Comments Patient Comments pt agreeable to get up Therapy Pain Assessment Pain When Pain Assessed At Rest Pain Present Pain Present Pain Reported Location Bilateral Lower Back Intensity 5 Scale Used Numeric (1 - 10) Pain Management Techniques Timing of Activity with Medications M4 PT-IP Mobility and Gait Start: 01/25/18 08:19 Freq: Status: Active Protocol: Document 01/27/18 11:29 AB (Rec: 01/27/18 11:43 AB [id number]) PT-Bed Mobility Assessment Rolling Type of Rolling Log Rolling Level of Assist Maximal Assistance Supine to Sit Supine to Sit Maximum Assistance 2 Person Assistance Scooting Scooting to Edge of Bed Standby Assistance PT-Transfer Assessment Sit to and From Stand Sit to and from Stand Moderate Assistance 2 Person Assistance Equipment Transfer Assistive Device Gait Belt Front Wheeled Walker Orthotic/Prosthetic Devices or Brace: Yes Transfers Transfer Destination Chair Transfer Technique Stand Step Pivot Transfer Ability Level of Assist Moderate Assistance 2 Person Assistance Use of Upper Extremities Comments Mobility Comments pt required increase time to complete tasks. M5 PT-IP Objective Assessments Start: 01/25/18 08:19 Freq: Status: Active Protocol: Document 01/25/18 08:22 RS (Rec: 01/25/18 08:44 RS [id number]) Orientation Orientation/Cognition Level of Alertness Alert Orientation Name Age Birthday Month Date Year Day of Week Place Situation Language Function Ability No Deficits Noted Safety Awareness Understands Safety Issues Memory Description No Deficits Noted Gross Range of Motion Upper Extremity ROM Assessment Within Functional Limits Lower Extremity ROM Impairments likely WFL structurally but limited by pain Strength Upper Extremity Strength Assessment Within Functional Limits Comments Strength Comments limited due to pain M6 PT-IP Treatment Start: 01/25/18 08:19 Freq: Status: Active Protocol: Document 01/27/18 11:29 AB (Rec: 01/27/18 11:43 AB [id number]) Physical Therapy Treatment Education Education Provided Precautions Safety Other Treatments Other Treatment Performed back brace adjustment conducted for comfort and alignment M7 PT-IP Assessment and Plan Start: 01/25/18 08:19 Freq: Status: Active Protocol: Document 01/27/18 11:29 AB (Rec: 01/27/18 11:43 AB [id number]) PT Summary Assessment and Plan Potential Rehabilitation Potential Fair Summary Impairments Pain ROM Strength Balance Cognition Bed Mobility Transfers Gait Activity Tolerance Progress Towards Goals Slow Progress due to Pain Slow Progress due to Activity Tolerance Assessment Summary pt requiring 2 person assists with all tasks. pt will require SNF rehab to improve strength and mobility. Goals Bed Mobility Goal Minimal Assistance Transfer Goal Minimal Assistance Front Wheeled Walker Gait Goal Minimal Assistance Front Wheel Walker Gait Distance 50 Days to Meet Goals 3 Frequency of Treatment Frequency Of Treatment Twice a Day Treatment Plan Physical Therapy Treatment Plan Bed Mobility Training Transfer Training Gait Training Therapeutic Exercise Discharge Planning Recommendations To Nursing Amount of Assist Needed 2 Person Assist Discharge Recommendations PT Discharge Recommendations SNF Rehab
[2018-01-27] MEDS: ENOXAPARIN 40 MG/0.4 ML SYRINGE SUBCUT (12:04)
--- NOTE | 2018-01-27 12:58 | OT.IP.EVAL ---
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 1STE Home Environment Standard Height Toilet Walk in Shower Home Equipment Front Wheel Walker Grab Bars In Shower Additional Social History Comment has a cat M1 PT/OT-IP Prior Functional Status Start: 01/26/18 11:48 Freq: NEEDED Status: Active Protocol: Document 01/27/18 10:00 [facility] (Rec: 01/27/18 12:58 [facility] [id number]) Medical Review Prior Functional Status Medical History Reviewed Yes Diet/Fluid Consistency Regular Communication no known deficits Mobility and Gait ind without an AD Activities of Daily Living and IADL's ind Social History Household Members none Living Arrangements House Number of Floors (Floors) One Floor Number of Stairs To Enter/Railing? 1STE Home Environment Standard Height Toilet Walk in Shower Home Equipment Front Wheel Walker Grab Bars In Shower Additional Social History Comment has a cat M2 OT-IP Current Condition Start: 01/26/18 11:48 Freq: Status: Active Protocol: Document 01/27/18 10:00 [facility] (Rec: 01/27/18 12:58 [facility] [id number]) Occupational Therapy Current Condition Current Condition Evaluation Date 01/27/18 Treatment Diagnosis L1 Compression fracture Diagnosis Onset Date 01/23/18 Post Operative Precautions Lumbar Precautions Log Roll No Twisting Limit Bending Other Precautions Brace to be worn when upright and ambulating, ok to take off for hygene. Weight Bearing Status Weight Bearing Status Weight Bear as Tolerated M3 OT- IP Subjective and Pain Start: 01/26/18 11:48 Freq: Status: Active Protocol: Document 01/27/18 10:00 [facility] (Rec: 01/27/18 12:58 [facility] [id number]) OT- Subjective Occupational Therapy Visit Type Type Initial Evaluation Visit Start Time 10:00 Visit Stop Time 10:40 Total Visit Minutes 40 Occupational Therapy Visit Comments Patient Comments Pt agreeable to get up. OT Pain Assessment Pain When Pain Assessed At Rest Pain Present Pain Present Pain Reported Location Bilateral Lower Back Intensity 6 Scale Used Numeric (1 - 10) M4 OT- IP ADL's Start: 01/26/18 11:48 Freq: Status: Active Protocol: Document 01/27/18 10:00 [facility] (Rec: 01/27/18 12:58 [facility] [id number]) OT ADL-Toileting Comments OT Toileting Comments Pt would benefit from MAX A AX 2 to BSC. M6 OT- IP Functional Cognition Start: 01/26/18 11:48 Freq: Status: Active Protocol: Document 01/27/18 10:00 [facility] (Rec: 01/27/18 12:58 [facility] [id number]) Cognitive Factors Limiting Selfcare Function Cognitive Ability Level of Alertness Alert Patient Orientation Name Place Situation Attention Span Ability Capable of Focused Attention Capable of Sustained Attention Ability to Follow Commands Able to Follow Multi-Step Commands Memory Description Immediate Intact Short Term Intact Safety Awareness No Deficits Noted Cognitive Comments Cognitive Assessment Comments Pt needing extra time to complete to complete commands. OT- Vision and Hearing OT- Hearing Assessment OT- Hearing Assessment WFL M7 OT- IP Mobility and Balance Start: 01/26/18 11:48 Freq: Status: Active Protocol: Document 01/27/18 10:00 [facility] (Rec: 01/27/18 12:58 [facility] [id number]) OT- Bed Mobility Assessment Rolling Type of Rolling Roll to Right Supine to Sit Supine to Sit Assist Maximum Assistance 2 Person Assistance Scooting Scooting to Edge of Bed Standby Assistance OT-Transfer Assessment Sit to and From Stand Sit to and from Stand Moderate Assistance 2 Person Assistance Transfers Transfer Ability Moderate Assistance 2 Person Assistance Technique Transfer Destination Bed Chair Transfer Technique Stand Step Pivot Devices Transfer Assistive Devices Gait Belt Front Wheeled Walker Orthotic/Prosthetic Devices or Brace: Yes Comments Mobility Comments Increased time to scoot to the edge of the bed. OT- Balance Assessment Sitting Balance and Reactions Static Sitting Balance Ability Fair M8 OT- IP Objective Assessments Start: 01/26/18 11:48 Freq: Status: Active Protocol: Document 01/27/18 10:00 [facility] (Rec: 01/27/18 12:58 [facility] [id number]) OT Gross Range of Motion Upper Extremity Range of Motion Assessment Within Functional Limits OT Strength Comments Strength Comments At least 4-/5 for all needs for BUE. OT-Muscle Tone Assessment Muscle Tone WNL Yes M9 OT- IP Assessment and Plan Start: 01/26/18 11:48 Freq: Status: Active Protocol: Document 01/27/18 10:00 [facility] (Rec: 01/27/18 12:58 [facility] [id number]) OT Summary Assessment and Plan Potential Rehabilitation Potential Fair Analytic Complexity at Evaluation Moderate Summary OT Impairments Pain Strength Balance Functional Cognition Functional Mobility Grooming Dressing Toileting Bathing Toilet Transfers Shower Transfers Progress Towards Goals Slow Progress due to Pain Slow Progress due to Medical Issues Slow Progress due to Activity Tolerance Assessment Summary Pt MOD complexity due to needing extensive assist for all needs 2 person for ADl's and functional mobility. Pt would benefit from skilled rehab prior to going home. Goals Grooming Goal Minimal Assistance Dressing Goal Moderate Assistance Toileting Goal Moderate Assistance Toilet Transfer Goal Moderate Assistance Patient/Caregiver Education Goal Demonstrate Post-Op Precautions Days to Meet Goals 7 Frequency of Treatment Frequency Of Treatment Once a Day Treatment Plan OT Treatment Plan ADL Training Functional Cognition Training Functional Mobility Patient/Family Education Discharge Planning Other Treatment Recommendations and Next Pt to try transfer to BSC, Treatment Focus stand from recliner to grooming at the sink with FWW. Discharge Recommendations OT Discharge Recommendations SNF Rehab Home Equipment Needs BSC, shower chair
--- NOTE | 2018-01-27 15:15 | PT.IPTN ---
Current Diagnoses Other osteoporosis with current pathological fracture, vertebra(e), initial encounter for fracture (01/26/18) Physical Therapy Treatment Note M2 PT-IP Current Condition Start: 01/25/18 08:19 Freq: Status: Active Protocol: Document 01/25/18 15:21 IJS (Rec: 01/25/18 15:26 IJS [id number]) Physical Therapy Current Condition Current Condition Evaluation Date 01/25/18 Treatment Diagnosis L1 fracture, impaired mobility Onset Date 01/23/18 Precautions Lumbar Precautions Log Roll No Twisting Limit Bending Other Precautions Brace to be worn when upright and ambulating, ok to take off for hygene. Weight Bearing Status Weight Bearing Status Weight Bear as Tolerated M3 PT-IP Subjective Start: 01/25/18 08:19 Freq: Status: Active Protocol: Document 01/27/18 16:54 AB (Rec: 01/27/18 16:59 AB [id number]) Subjective Physical Therapy Visit Type Type Treatment Note Visit Start Time 15:15 Visit Stop Time 15:36 Total Visit Minutes 21 Number of CLINICAL EDUCATION MANAGER Visits 0 Therapy Pain Assessment Pain When Pain Assessed At Rest Pain Present Pain Present Pain Reported Location Bilateral Lower Back Intensity 5 Scale Used Numeric (1 - 10) M4 PT-IP Mobility and Gait Start: 01/25/18 08:19 Freq: Status: Active Protocol: Document 01/27/18 16:54 AB (Rec: 01/27/18 16:59 AB [id number]) PT-Bed Mobility Assessment Sit to Supine Sit to Supine Maximum Assistance 1 Person Assistance 2 Person Assistance Bedrails Scooting Scooting Up and Down in Bed Moderate Assistance Maximum Assistance Gait Assessment Gait Gait Assistance Required: Moderate Assistance Distance (Feet) (feet) 8 Able to Maintain Weight Bearing Status Yes During Gait Assistive Devices Assistive Device Gait Belt Front Wheeled Walker Gait Deviations General Gait Pattern Decreased Stride Length Decreased Feet Clearance Factors Limiting Gait Function Factors Limiting Gait Function Decreased Activity Tolerance Decreased Strength Limited Range of Motion Pain Comments Gait Comments pt was standing with NAC to change pt's bed when PT came in and PT took over. pt agreeable to do ambulation but requested to go back to bed afterwards. M5 PT-IP Objective Assessments Start: 01/25/18 08:19 Freq: Status: Active Protocol: Document 01/25/18 08:22 RS (Rec: 01/25/18 08:44 RS [id number]) Orientation Orientation/Cognition Level of Alertness Alert Orientation Name Age Birthday Month Date Year Day of Week Place Situation Language Function Ability No Deficits Noted Safety Awareness Understands Safety Issues Memory Description No Deficits Noted Gross Range of Motion Upper Extremity ROM Assessment Within Functional Limits Lower Extremity ROM Impairments likely WFL structurally but limited by pain Strength Upper Extremity Strength Assessment Within Functional Limits Comments Strength Comments limited due to pain M6 PT-IP Treatment Start: 01/25/18 08:19 Freq: Status: Active Protocol: Document 01/27/18 16:54 AB (Rec: 01/27/18 16:59 AB [id number]) Physical Therapy Treatment Education Education Provided Precautions Safety M7 PT-IP Assessment and Plan Start: 01/25/18 08:19 Freq: Status: Active Protocol: Document 01/27/18 16:54 AB (Rec: 01/27/18 16:59 AB [id number]) PT Summary Assessment and Plan Potential Rehabilitation Potential Fair Summary Impairments Pain ROM Strength Balance Coordination Bed Mobility Transfers Gait Activity Tolerance Progress Towards Goals Slow Progress due to Pain Assessment Summary pt making slow progress but continues to require 1-2 person assist with mobility. pt continues to c/o increase pain and requires increase time to complete tasks. pt will require SNF rehab to improve mobility and independence. Goals Bed Mobility Goal Minimal Assistance Transfer Goal Minimal Assistance Front Wheeled Walker Gait Goal Minimal Assistance Front Wheel Walker Gait Distance 50 Days to Meet Goals 3 Frequency of Treatment Frequency Of Treatment Twice a Day Treatment Plan Physical Therapy Treatment Plan Bed Mobility Training Transfer Training Gait Training Therapeutic Exercise Discharge Planning Recommendations To Nursing Amount of Assist Needed 2 Person Assist Discharge Recommendations PT Discharge Recommendations SNF Rehab
--- NOTE | 2018-01-27 16:16 | PC.NURSE ---
Addendum entered by Libra Akers R.N. 01/27/18 21:46: Pt uncomfortable at intervals through evening. Med w/valium @ 1915 and Oxycodone at 2100. Pt currently is resting quietly. Call light w/in reach. Bed alarm on for pt safety. Continue w/plan of care. Original Note: Addendum entered by Libra Akers R.N. 01/27/18 17:56: Med w/oxycodone at 1720 for discomfort. Original Note: Pt changed to a Jeanette bed, states she is more comfortable. Denies discomfort at this time. Brace remains in place. HL in right hand intact/patent. Milian cath patent clear yellow urine. Call light w/in reach.
[2018-01-27] MEDS: diazePAM 2 MG TABLET PO (19:16)
[2018-01-27] MEDS: OXYCODONE IR 10 MG TABLET PO (20:58)
[2018-01-28] VITALS (10 sets, daily range): BP systolic 135–147; BP diastolic 71–99; PULSE 72–95; RESP 16–18; TEMP 36.6–37.5; O2SAT 90–97
[2018-01-28] MEDS: OXYCODONE IR 10 MG TABLET PO ×5 (01:01→22:24)
--- NOTE | 2018-01-28 03:10 | OT.IP.TRT ---
Current Diagnoses Other osteoporosis with current pathological fracture, vertebra(e), initial encounter for fracture (01/26/18) Other fracture of first lumbar vertebra, initial encounter for closed fracture (01/26/18) Occupational Therapy Treatment Note M2 OT-IP Current Condition Start: 01/26/18 11:48 Freq: Status: Active Protocol: Document 01/28/18 15:10 ADH (Rec: 01/28/18 15:26 ADH [id number]) Occupational Therapy Current Condition Current Condition Evaluation Date 01/27/18 Treatment Diagnosis L1 Compression fracture Diagnosis Onset Date 01/23/18 Post Operative Precautions Lumbar Precautions Log Roll No Twisting Limit Bending Other Precautions Brace to be worn when upright and ambulating, ok to take off for hygiene. Weight Bearing Status Weight Bearing Status Weight Bear as Tolerated M3 OT- IP Subjective and Pain Start: 01/26/18 11:48 Freq: Status: Active Protocol: Document 01/28/18 15:10 ADH (Rec: 01/28/18 15:26 ADH [id number]) OT- Subjective Occupational Therapy Visit Type Type Treatment Note Visit Start Time 01:45 Visit Stop Time 02:30 Total Visit Minutes 45 Notes Pt reporting discomfort in recliner, requesting to return to bed. Premedicated per nursing. M4 OT- IP ADL's Start: 01/26/18 11:48 Freq: Status: Active Protocol: Document 01/28/18 15:10 ADH (Rec: 01/28/18 15:26 ADH [id number]) OT ADL-Grooming General Evaluation Grooming Ability Contact Guard Assistance Areas Needing Assistance Retrieving/Set-up of Grooming Items Comments OT Grooming Comments Pt able to stand at FWW/sink for ~6 minutes to perform UB hygiene including sponge bath and face wash. OT ADL-Dressing General Eval Upper Body Dressing Ability Contact Guard Assistance Lower Body Dressing Ability Minimal Assistance Comments OT Dressing Comments Pt required A to thread brief over feet in standing, then was able to pull up and over hips with CGA for balance. Pt needing mod/max A to don/doff brace standing EOB, requesting mirror for additional practice. OT ADL-Toileting General Evaluation Areas Needing Assistance Empty Catheter or Colostomy Perform Perineal Hygiene Comments OT Toileting Comments Pt dependent on toileting d/t catheter and limited awareness of loose BMs. Pt with poor awareness of perineal hygiene, needing max A to wipe self thoroughly and wash hands. Nursing staff present-- recommend A of 1 for t/f to/ from BSC or toilet for improved BMs and hygiene, patient in agreement with plan . M6 OT- IP Functional Cognition Start: 01/26/18 11:48 Freq: Status: Active Protocol: Document 01/27/18 10:00 [facility] (Rec: 01/27/18 12:58 [facility] [id number]) Cognitive Factors Limiting Selfcare Function Cognitive Ability Level of Alertness Alert Patient Orientation Name Place Situation Attention Span Ability Capable of Focused Attention Capable of Sustained Attention Ability to Follow Commands Able to Follow Multi-Step Commands Memory Description Immediate Intact Short Term Intact Safety Awareness No Deficits Noted Cognitive Comments Cognitive Assessment Comments Pt needing extra time to complete to complete commands. OT- Vision and Hearing OT- Hearing Assessment OT- Hearing Assessment WFL M7 OT- IP Mobility and Balance Start: 01/26/18 11:48 Freq: Status: Active Protocol: Document 01/28/18 15:10 ADH (Rec: 01/28/18 15:26 ADH [id number]) OT- Bed Mobility Assessment Rolling Type of Rolling Log Rolling Level of Assistance Maximum Assistance 2 Person Assistance OT-Transfer Assessment Sit to and From Stand Sit to and from Stand Minimal Assistance Transfers Transfer Ability Minimal Assistance Technique Transfer Destination Bed Chair Transfer Technique Stand Step Pivot Devices Transfer Assistive Devices Gait Belt Front Wheeled Walker Comments Mobility Comments Pt needing increased time with all functional mobility, prefering to initiate movements on her own to increase management of pain. M8 OT- IP Objective Assessments Start: 01/26/18 11:48 Freq: Status: Active Protocol: Document 01/27/18 10:00 [facility] (Rec: 01/27/18 12:58 [facility] [id number]) OT Gross Range of Motion Upper Extremity Range of Motion Assessment Within Functional Limits OT Strength Comments Strength Comments At least 4-/5 for all needs for BUE. OT-Muscle Tone Assessment Muscle Tone WNL Yes M9 OT- IP Assessment and Plan Start: 01/26/18 11:48 Freq: Status: Active Protocol: Document 01/28/18 15:10 [facility] (Rec: 01/28/18 15:26 ADH [id number]) OT Summary Assessment and Plan Potential Rehabilitation Potential Good Analytic Complexity at Evaluation Low Summary OT Impairments Pain Range of Motion Strength Balance Progress Towards Goals Progressing Toward Goals Assessment Summary Pt with good progress toward goals this session, able to tolerate 10+ minutes of standing/brief sitting/ balancing. Pt with good ability to participate in donning/doffing brace. Pt continues to be below baseline for all functional mobility and self-care and would benefit from continued OT/PT services until d/c to SNF. Discharge Recommendations OT Discharge Recommendations SNF Rehab
[2018-01-28] MEDS: PANTOPRAZOLE 20 MG TABLET PO (05:34)
--- NOTE | 2018-01-28 08:17 | PC.NURSE ---
AM NOTE - awakens easily, clear and responses are appropriate, oriented to PPT, 2l 98%, hr irreg 96, removed 02 this am and sat ra 93% describes ongoing nausea past week, has improved past day or so, discussed po intake, sat up for breakfast and will try gen diet, ns @ 125ml/hr, denies chest pain or headache.
--- NOTE | 2018-01-28 08:25 | PM.PN.1 ---
Subjective Date Patient Seen: 01/28/18 Time Patient Seen: 08:26 Interval history: Patient reports her pain is somewhat better. However still having significant amount of pain and had a difficult night last night. Exam Vital Signs (past 8 hours): - 01/28/18 00:55 01/28/18 01:00 01/28/18 04:00 Temperature 97.8 F Pulse Rate 75 Respiratory Rate 18 Blood Pressure 146/71 H 145/85 H Pulse Oximetry 95 Fraction of Inspired Oxygen 21 Oxygen Delivery Method Nasal Cannula Oxygen Flow Rate 1.5 Narrative Exam Narrative: Unchanged from previous, no new neurologic findings Objective Labs Result Diagrams: 01/25/18 02:02 01/25/18 02:02 Assessment & Plan Plan: Assessment/Plan Narrative: 1. Lumbar compression fracture-patient is still having a lot of pain requiring a lot of assistance. Not sure she is ready to go to retirement as yet. I have asked nursing staff to try ensure patient receives doses of oxycodone a more regular basis but at this point I am not choosing to actually order it as a scheduled every 4 every 6 hr does although that might be beneficial if she does not have significant improvement today receiving regular dosing. The brace seems to be helpful and will continue on that as per Orthopedic surgery. 2. Hypertension-numbers are improving as expected with improved pain control. Will DC the topical nitrates and continue to monitor carefully. 3. GI-no evidence of stool output at this point. Continue to mobilize patient as able, continue with bowel meds and stool softeners etc. 4. Disposition-plan should be made for patient to be transferred to retirement probably ready in 24-72 hours or over the weekend sometime. Again would prefer patient be placed in retirement outside of [facility], [facility] being 1st choice Note: Greater than 30 minutes was spent evaluating the patient on the floor, including examining the patient, discussing clinical course with clinical and nursing staff, reviewing clinical course in the computer, preparing documentation and writing orders for continued management of care, discussing status with family as appropriate, reviewing plans for the next 24 hours with both patient/family and nursing staff as appropriate. Quality VTE Deep Vein Thrombosis/Pulmonary Embolism Present on Admission: No
--- NOTE | 2018-01-28 08:31 | P.PN_ITS ---
Subjective Date Patient Seen: 01/28/18 Time Patient Seen: 08:26 Interval history: Patient reports her pain is somewhat better. However still having significant amount of pain and had a difficult night last night. Exam Vital Signs (past 8 hours): - 01/28/18 00:55 01/28/18 01:00 01/28/18 04:00 Temperature 97.8 F Pulse Rate 75 Respiratory Rate 18 Blood Pressure 146/71 H 145/85 H Pulse Oximetry 95 Fraction of Inspired Oxygen 21 Oxygen Delivery Method Nasal Cannula Oxygen Flow Rate 1.5 Narrative Exam Narrative: Unchanged from previous, no new neurologic findings Objective Labs Result Diagrams: 01/25/18 02:02 01/25/18 02:02 Assessment & Plan Plan: Assessment/Plan Narrative: 1. Lumbar compression fracture-patient is still having a lot of pain requiring a lot of assistance. Not sure she is ready to go to jail as yet. I have asked nursing staff to try ensure patient receives doses of oxycodone a more regular basis but at this point I am not choosing to actually order it as a scheduled every 4 every 6 hr does although that might be beneficial if she does not have significant improvement today receiving regular dosing. The brace seems to be helpful and will continue on that as per Orthopedic surgery. 2. Hypertension-numbers are improving as expected with improved pain control. Will DC the topical nitrates and continue to monitor carefully. 3. GI-no evidence of stool output at this point. Continue to mobilize patient as able, continue with bowel meds and stool softeners etc. 4. Disposition-plan should be made for patient to be transferred to jail probably ready in 24-72 hours or over the weekend sometime. Again would prefer patient be placed in jail outside of [facility], [facility] choice Note: Greater than 30 minutes was spent evaluating the patient on the floor, including examining the patient, discussing clinical course with clinical and nursing staff, reviewing clinical course in the computer, preparing documentation and writing orders for continued management of care, discussing status with family as appropriate, reviewing plans for the next 24 hours with both patient/family and nursing staff as appropriate. Quality VTE Deep Vein Thrombosis/Pulmonary Embolism Present on Admission: No
--- NOTE | 2018-01-28 09:01 | PM.PN.1 ---
Subjective Date Patient Seen: 01/28/18 Time Patient Seen: 09:01 Interval history: Hospital day 3 following closed L1 compression fracture. Patient wearing TLSO brace regularly. Pain seems to vary in intensity. States she was up to chair for 3 hr yesterday had had increased pain near the end of that time. Had increased pain during the night. Remains neurologically stable. Vital signs stable. She is awaiting discharge to [facility] when she is stable. She is being followed by Dr. Castaneda. Exam Vital Signs (past 8 hours): - 01/28/18 04:00 01/28/18 08:00 Temperature 97.8 F 98.1 F Pulse Rate 75 86 Respiratory Rate 18 18 Blood Pressure 145/85 H 143/91 H Pulse Oximetry 96 Fraction of Inspired Oxygen 21 Oxygen Delivery Method Nasal Cannula Oxygen Flow Rate 1.5 Narrative Exam Narrative: Alert, oriented no acute distress lying in bed. TLSO brace in place. Objective Labs Result Diagrams: 01/25/18 02:02 01/25/18 02:02 Assessment & Plan (1) Closed L1 vertebral fracture: Qualifiers: Encounter type: initial encounter Fracture healing: Fracture morphology: other fracture Qualified Code(s): S32.018A - Other fracture of first lumbar vertebra, initial encounter for closed fracture Current visit: Yes Status: Acute Plan: Assessment/Plan Narrative: Patient will continue with her TLSO brace until fracture is healed and pain improved. Dr. Castaneda is planning on having her go to [facility] for further care prior to going home. Patient could follow-up at [facility] Orthopedics office either in [place] or [place] to follow up on her compression fracture in 2 weeks. Quality VTE Deep Vein Thrombosis/Pulmonary Embolism Present on Admission: No
--- NOTE | 2018-01-28 09:06 | P.PN_ITS ---
Subjective Date Patient Seen: 01/28/18 Time Patient Seen: 09:01 Interval history: Hospital day 3 following closed L1 compression fracture. Patient wearing TLSO brace regularly. Pain seems to vary in intensity. States she was up to chair for 3 hr yesterday had had increased pain near the end of that time. Had increased pain during the night. Remains neurologically stable. Vital signs stable. She is awaiting discharge to [facility] when she is stable. She is being followed by Dr. Castaneda. Exam Vital Signs (past 8 hours): - 01/28/18 04:00 01/28/18 08:00 Temperature 97.8 F 98.1 F Pulse Rate 75 86 Respiratory Rate 18 18 Blood Pressure 145/85 H 143/91 H Pulse Oximetry 96 Fraction of Inspired Oxygen 21 Oxygen Delivery Method Nasal Cannula Oxygen Flow Rate 1.5 Narrative Exam Narrative: Alert, oriented no acute distress lying in bed. TLSO brace in place. Objective Labs Result Diagrams: 01/25/18 02:02 01/25/18 02:02 Assessment & Plan (1) Closed L1 vertebral fracture: Qualifiers: Encounter type: initial encounter Fracture healing: Fracture morphology: other fracture Qualified Code(s): S32.018A - Other fracture of first lumbar vertebra, initial encounter for closed fracture Current visit: Yes Status: Acute Plan: Assessment/Plan Narrative: Patient will continue with her TLSO brace until fracture is healed and pain improved. Dr. Castaneda is planning on having her go to [facility] for further care prior to going home. Patient could follow-up at [facility] Orthopedics office either in [place] or [place] to follow up on her compression fracture in 2 weeks. Quality VTE Deep Vein Thrombosis/Pulmonary Embolism Present on Admission: No
[2018-01-28] MEDS: POLYETHYLENE GLYCOL 3350 17 GM POWD.PACK PO (09:32)
[2018-01-28] MEDS: AMLODIPINE 5 MG TABLET 10 MG PO (09:33)
[2018-01-28] MEDS: ENOXAPARIN 40 MG/0.4 ML SYRINGE SUBCUT (09:33)
[2018-01-28] MEDS: DOCUSATE 100 MG CAPSULE PO ×2 (09:33→22:18)
[2018-01-28] MEDS: CALCITONIN,SALMON, NASAL SPRAY 1 SPRAYS NASAL (09:33)
[2018-01-28] MEDS: METOPROLOL 50 MG TABLET PO ×2 (09:34→22:19)
[2018-01-28] MEDS: FERROUS SULFATE 325 MG TABLET PO ×2 (09:34→22:18)
[2018-01-28] MEDS: GABAPENTIN 600 MG TABLET PO ×2 (09:34→22:19)
[2018-01-28] MEDS: diazePAM 2 MG TABLET PO ×2 (10:01→22:24)
--- NOTE | 2018-01-28 11:13 | PC.NURSE ---
Addendum entered by Loree Willoughby R.N. 01/28/18 13:34: PAIN/MS - phys therapy assisted pt up slowly from bed, wearing brace, steps around to chair, after lunch, pain 7 on scale 0/10, given 10mg oxycodone for afternoon PT and ret to bed. Original Note: AM NOTE - able eat with hob approx 30 degrees, wearing her back brace, pain 7 on scale 0/10, beginning to increase after earlier dosage, after meal given 10mg oxycodone and when pt had incr muscle spasm with repositioning, added 2mg po valium prior to phys therapy this am, schuler w/conc urine, ra 96%, p90.
--- NOTE | 2018-01-28 11:19 | PT.IPTN ---
Current Diagnoses Other osteoporosis with current pathological fracture, vertebra(e), initial encounter for fracture (01/26/18) Other fracture of first lumbar vertebra, initial encounter for closed fracture (01/26/18) Physical Therapy Treatment Note M2 PT-IP Current Condition Start: 01/25/18 08:19 Freq: Status: Active Protocol: Document 01/25/18 15:21 IJS (Rec: 01/25/18 15:26 IJS [id number]) Physical Therapy Current Condition Current Condition Evaluation Date 01/25/18 Treatment Diagnosis L1 fracture, impaired mobility Onset Date 01/23/18 Precautions Lumbar Precautions Log Roll No Twisting Limit Bending Other Precautions Brace to be worn when upright and ambulating, ok to take off for hygene. Weight Bearing Status Weight Bearing Status Weight Bear as Tolerated M3 PT-IP Subjective Start: 01/25/18 08:19 Freq: Status: Active Protocol: Document 01/28/18 11:11 GGD (Rec: 01/28/18 11:18 GGD [email or web address]) Subjective Physical Therapy Visit Type Type Treatment Note Visit Start Time 10:25 Visit Stop Time 11:00 Total Visit Minutes 35 Number of VACCINE MANAGER Visits 1 Physical Therapy Visit Comments Patient Comments Pt willing to get up. Therapy Pain Assessment Pain When Pain Assessed At Rest Pain Present Pain Present Pain Reported M4 PT-IP Mobility and Gait Start: 01/25/18 08:19 Freq: Status: Active Protocol: Document 01/28/18 11:11 GGD (Rec: 01/28/18 11:18 GGD [email or web address]) PT-Bed Mobility Assessment Rolling Type of Rolling Log Rolling Level of Assist Maximal Assistance Supine to Sit Supine to Sit Maximum Assistance 2 Person Assistance Scooting Scooting to Edge of Bed Moderate Assistance PT-Transfer Assessment Sit to and From Stand Sit to and from Stand Moderate Assistance Use of Upper Extremities Equipment Transfer Assistive Device Gait Belt Front Wheeled Walker Orthotic/Prosthetic Devices or Brace: Yes Gait Assessment Gait Gait Assistance Required: Moderate Assistance Distance (Feet) (feet) 15 Assistive Devices Assistive Device Gait Belt Front Wheeled Walker Gait Deviations General Gait Pattern Decreased Stride Length Decreased Feet Clearance Factors Limiting Gait Function Factors Limiting Gait Function Decreased Activity Tolerance Decreased Strength Limited Range of Motion Pain M5 PT-IP Objective Assessments Start: 01/25/18 08:19 Freq: Status: Active Protocol: Document 01/25/18 08:22 RS (Rec: 01/25/18 08:44 RS [id number]) Orientation Orientation/Cognition Level of Alertness Alert Orientation Name Age Birthday Month Date Year Day of Week Place Situation Language Function Ability No Deficits Noted Safety Awareness Understands Safety Issues Memory Description No Deficits Noted Gross Range of Motion Upper Extremity ROM Assessment Within Functional Limits Lower Extremity ROM Impairments likely WFL structurally but limited by pain Strength Upper Extremity Strength Assessment Within Functional Limits Comments Strength Comments limited due to pain M6 PT-IP Treatment Start: 01/25/18 08:19 Freq: Status: Active Protocol: Document 01/27/18 16:54 AB (Rec: 01/27/18 16:59 AB [id number]) Physical Therapy Treatment Education Education Provided Precautions Safety M7 PT-IP Assessment and Plan Start: 01/25/18 08:19 Freq: Status: Active Protocol: Document 01/28/18 11:11 GGD (Rec: 01/28/18 11:18 GGD [email or web address]) PT Summary Assessment and Plan Summary Assessment Summary Pt need 2 person assist. She is progressing slowly. Pt has increase in pain with mobility . She is slow moving and needs extra time to complete tasks. Frequency of Treatment Frequency Of Treatment Twice a Day Treatment Plan Physical Therapy Treatment Plan Bed Mobility Training Transfer Training Gait Training Therapeutic Exercise Discharge Planning Recommendations To Nursing Amount of Assist Needed 2 Person Assist Discharge Recommendations PT Discharge Recommendations SNF Rehab
--- NOTE | 2018-01-28 14:30 | PT.IPTN ---
Current Diagnoses Other osteoporosis with current pathological fracture, vertebra(e), initial encounter for fracture (01/26/18) Other fracture of first lumbar vertebra, initial encounter for closed fracture (01/26/18) Physical Therapy Treatment Note M2 PT-IP Current Condition Start: 01/25/18 08:19 Freq: Status: Active Protocol: Document 01/25/18 15:21 IJS (Rec: 01/25/18 15:26 IJS [id number]) Physical Therapy Current Condition Current Condition Evaluation Date 01/25/18 Treatment Diagnosis L1 fracture, impaired mobility Onset Date 01/23/18 Precautions Lumbar Precautions Log Roll No Twisting Limit Bending Other Precautions Brace to be worn when upright and ambulating, ok to take off for hygene. Weight Bearing Status Weight Bearing Status Weight Bear as Tolerated M3 PT-IP Subjective Start: 01/25/18 08:19 Freq: Status: Active Protocol: Document 01/28/18 14:30 GGD (Rec: 01/28/18 15:48 GGD [email or web address]) Subjective Physical Therapy Visit Type Type Treatment Note Visit Start Time 13:45 Visit Stop Time 14:30 Total Visit Minutes 45 Number of SHOE COVERER Visits 2 Physical Therapy Visit Comments Patient Comments Pt states she is tired and would like to go back to bed. Therapy Pain Assessment Pain When Pain Assessed At Rest Pain Present Pain Present Pain Reported M4 PT-IP Mobility and Gait Start: 01/25/18 08:19 Freq: Status: Active Protocol: Document 01/28/18 14:30 GGD (Rec: 01/28/18 15:48 GGD [email or web address]) PT-Bed Mobility Assessment Rolling Type of Rolling Log Rolling Level of Assist Moderate Assistance Sit to Supine Sit to Supine Moderate Assistance 2 Person Assistance Bedrails Scooting Scooting to Edge of Bed Contact Guard Assistance PT-Transfer Assessment Sit to and From Stand Sit to and from Stand Contact Guard Assistance Use of Upper Extremities Equipment Transfer Assistive Device Gait Belt Front Wheeled Walker Orthotic/Prosthetic Devices or Brace: Yes Transfers Transfer Destination Bed Gait Assessment Gait Gait Assistance Required: Contact Guard Assist Distance (Feet) (feet) 20 Assistive Devices Assistive Device Gait Belt Front Wheeled Walker Gait Deviations General Gait Pattern Decreased Stride Length Decreased Feet Clearance Factors Limiting Gait Function Factors Limiting Gait Function Decreased Activity Tolerance Decreased Strength Limited Range of Motion Pain M5 PT-IP Objective Assessments Start: 01/25/18 08:19 Freq: Status: Active Protocol: Document 01/25/18 08:22 RS (Rec: 01/25/18 08:44 RS [id number]) Orientation Orientation/Cognition Level of Alertness Alert Orientation Name Age Birthday Month Date Year Day of Week Place Situation Language Function Ability No Deficits Noted Safety Awareness Understands Safety Issues Memory Description No Deficits Noted Gross Range of Motion Upper Extremity ROM Assessment Within Functional Limits Lower Extremity ROM Impairments likely WFL structurally but limited by pain Strength Upper Extremity Strength Assessment Within Functional Limits Comments Strength Comments limited due to pain M6 PT-IP Treatment Start: 01/25/18 08:19 Freq: Status: Active Protocol: Document 01/28/18 14:30 GGD (Rec: 01/28/18 15:48 GGD [email or web address]) Physical Therapy Treatment Education Education Provided Precautions Brace Education [place] Other Treatments Other Treatment Performed Standing at sink for > 5 min for self care with OT with CGA for balance. Sit to stand at bed side for glown change and min A for donning and doffing brace. M7 PT-IP Assessment and Plan Start: 01/25/18 08:19 Freq: Status: Active Protocol: Document 01/28/18 14:30 GGD (Rec: 01/28/18 15:48 GGD [email or web address]) PT Summary Assessment and Plan Summary Assessment Summary Pt need 2 assist for bed mobility. She progress with sit to stand with less assist. She had good standing balance at sink with use of UE. She did need cues and assist for brace management. Frequency of Treatment Frequency Of Treatment Twice a Day Treatment Plan Physical Therapy Treatment Plan Bed Mobility Training Transfer Training Gait Training Therapeutic Exercise Discharge Planning Recommendations To Nursing Amount of Assist Needed 2 Person Assist Discharge Recommendations PT Discharge Recommendations SNF Rehab
--- NOTE | 2018-01-28 15:28 | CM.DPC ---
DCP/continued: Received referral from Jack PACHECO this AM that patient most likely will be medically cleared for discharge to SNF over the weekend. Met with patient explained CM/SRIDHAR role. White board in patient's room updated. Patient reports that initially she wanted to go to [facility]. Patient has now decided that her first SNF choice is [facility]. WARP DYEING TENDER called Dasia with admit at [facility] and she reports that they do have female beds and she believes they do take [facility]. Asked CARL/Jennifer to fax clinical to [facility]. Placed call to Deya at [facility] informing her of the above. Received phone call from CONCETTA[facility] [phone] re: SNF change. Per Libra, she would like updated therapy notes faxed to [phone]. Libra reports that from the notes she has seen thus far patient does not appear medically stable for discharge. KATHLEEN notified Libra that patient is not medically stable for discharge today. However, might be over the w/e and if authorization available today then if patient were to become medically stable will not have to wait till Wednesday04-03-18. Radha faxed updated clinicals per Libra's request. Libra also requested that facility call for pre-certification. KATHLEEN placed call to Dasia at [facility] and provided her with number [phone]. P: Hopefully patient can go to [facility] when medically stable. Most likely will need non-urgent BLS transport. CM team to follow closely. KATHLEEN Arroyo
[2018-01-28] MEDS: SENNOSIDES 8.6 MG TABLET 17.2 MG PO (22:18)
[2018-01-29] VITALS (8 sets, daily range): BP systolic 110–149; BP diastolic 64–90; PULSE 73–91; RESP 14–16; TEMP 36.4–36.9; O2SAT 92–99
--- NOTE | 2018-01-29 02:59 | PC.NURSE ---
Patient is in back brace ,TLSO brace. Tried to reposition brace without undoing. Added pillowcase to neck piece for protection.
[2018-01-29] MEDS: PANTOPRAZOLE 20 MG TABLET PO (06:58)
[2018-01-29] MEDS: OXYCODONE IR 10 MG TABLET PO ×3 (06:59→22:15)
[2018-01-29] MEDS: diazePAM 2 MG TABLET PO ×2 (09:25→22:14)
[2018-01-29] MEDS: FERROUS SULFATE 325 MG TABLET PO ×2 (09:25→22:15)
[2018-01-29] MEDS: CALCITONIN,SALMON, NASAL SPRAY 1 SPRAYS NASAL (09:25)
[2018-01-29] MEDS: DOCUSATE 100 MG CAPSULE PO ×2 (09:25→22:15)
[2018-01-29] MEDS: ENOXAPARIN 40 MG/0.4 ML SYRINGE SUBCUT (09:25)
[2018-01-29] MEDS: METOPROLOL 50 MG TABLET PO ×2 (09:26→22:15)
[2018-01-29] MEDS: POLYETHYLENE GLYCOL 3350 17 GM POWD.PACK PO ×2 (09:26→22:16)
[2018-01-29] MEDS: AMLODIPINE 5 MG TABLET 10 MG PO (09:27)
[2018-01-29] MEDS: GABAPENTIN 600 MG TABLET PO ×2 (09:33→22:15)
--- NOTE | 2018-01-29 10:12 | PC.NURSE ---
Addendum entered by Loree Willoughby R.N. 01/29/18 11:42: PAIN - pt is seated in chair, wearing brace, her position has her neck hyperextended, repositioned more upright, placed a rolled towel under neck, pt is drowsy but moans with discomfort, given 10mg po oxycodone. Original Note: Addendum entered by Loree Willoughby R.N. 01/29/18 10:36: MS/INTEG - phys therapy in and stood at bedside, brace removed and noted to have a red area l posterior torso from brace, blanchable, no opening noted, JUNIOR Vora notified and in to visualize, discussed changing to a different brace, placed a pink padded allevyn dressing over to protect skin from further breakdown. Original Note: AM NOTE - awake, earlier oxycodone provided some relief, reports stiffness neck, pain 7 on scale 0/10, wearing brace in bed, discussed mobilization with phys therapy added 2mg valium after breakfast, ra 95%, enc freq use IS, hr reg 88, schuler with conc urine, enc fluid intake.
--- NOTE | 2018-01-29 10:21 | PM.PN.1 ---
Subjective Date Patient Seen: 01/29/18 Time Patient Seen: 10:21 Interval history: Hospital day 4 with history of L1 compression fracture. Does have TLSO brace in place although the brace does not appear to fit well. Still limited function with transfers but is ambulating better. Denies any leg pain or numbness. Anticipate discharge to [facility] when she is stable for further care prior to going home. Exam Vital Signs (past 8 hours): - 01/29/18 02:55 01/29/18 06:00 01/29/18 08:04 Temperature 97.6 F 98.4 F 97.5 F L Pulse Rate 73 91 H 87 Respiratory Rate 16 16 14 Blood Pressure 148/78 H 147/80 H 149/77 H Pulse Oximetry 96 96 92 01/29/18 10:02 Temperature Pulse Rate Respiratory Rate Blood Pressure Pulse Oximetry 95 Fraction of Inspired Oxygen 21 Oxygen Delivery Method Room Air Oxygen Flow Rate 1.5 Narrative Exam Narrative: Well-developed well-nourished acute distress. Patient alert oriented x3. Patient is ambulating with the assistance of a walker but any movement spine is still painful. She is neurovascularly intact in lower extremities. Calves are soft and compressible. She has a small area of skin irritation from the brace on her lumbar spine. Appears to be stage 1. Objective Labs Result Diagrams: 01/25/18 02:02 01/25/18 02:02 Assessment & Plan Plan: Assessment/Plan Narrative: Patient should continue progressing with physical therapy. Continue pain management. Recommend havig [facility] coming Wednesday to fit for a custom brace to accommodate her kyphosis. Watch skin for further signs of breakdown and have the patient wear a shirt and bra underneath the brace. Quality VTE Deep Vein Thrombosis/Pulmonary Embolism Present on Admission: No
--- NOTE | 2018-01-29 10:45 | PT.IPTN ---
Current Diagnoses Other osteoporosis with current pathological fracture, vertebra(e), initial encounter for fracture (01/26/18) Other fracture of first lumbar vertebra, initial encounter for closed fracture (01/26/18) Physical Therapy Treatment Note M2 PT-IP Current Condition Start: 01/25/18 08:19 Freq: Status: Active Protocol: Document 01/25/18 15:21 IJS (Rec: 01/25/18 15:26 IJS [id number]) Physical Therapy Current Condition Current Condition Evaluation Date 01/25/18 Treatment Diagnosis L1 fracture, impaired mobility Onset Date 01/23/18 Precautions Lumbar Precautions Log Roll No Twisting Limit Bending Other Precautions Brace to be worn when upright and ambulating, ok to take off for hygene. Weight Bearing Status Weight Bearing Status Weight Bear as Tolerated M3 PT-IP Subjective Start: 01/25/18 08:19 Freq: Status: Active Protocol: Document 01/29/18 10:45 GGD (Rec: 01/29/18 11:37 GGD [email or web address]) Subjective Physical Therapy Visit Type Type Treatment Note Visit Start Time 10:00 Visit Stop Time 10:45 Total Visit Minutes 45 Number of LOADMASTER Visits 3 Physical Therapy Visit Comments Patient Comments Pt willing to get up. Therapy Pain Assessment Pain When Pain Assessed At Rest Pain Present Pain Present Pain Reported M4 PT-IP Mobility and Gait Start: 01/25/18 08:19 Freq: Status: Active Protocol: Document 01/29/18 10:45 GGD (Rec: 01/29/18 11:37 GGD [id number]) PT-Bed Mobility Assessment Rolling Type of Rolling Log Rolling Level of Assist Moderate Assistance Supine to Sit Supine to Sit Maximum Assistance 2 Person Assistance Scooting Scooting to Edge of Bed Minimal Assistance PT-Transfer Assessment Sit to and From Stand Sit to and from Stand Contact Guard Assistance Use of Upper Extremities Equipment Transfer Assistive Device Gait Belt Front Wheeled Walker Orthotic/Prosthetic Devices or Brace: Yes Transfers Transfer Destination Chair Gait Assessment Gait Gait Assistance Required: Contact Guard Assist 1 Person Assist Distance (Feet) (feet) 15 Assistive Devices Assistive Device Gait Belt Front Wheeled Walker Gait Deviations General Gait Pattern Decreased Stride Length Decreased Feet Clearance Factors Limiting Gait Function Factors Limiting Gait Function Decreased Activity Tolerance Decreased Strength Limited Range of Motion Pain Comments Gait Comments Pt need cues for step and FWW management. M5 PT-IP Objective Assessments Start: 01/25/18 08:19 Freq: Status: Active Protocol: Document 01/25/18 08:22 RS (Rec: 01/25/18 08:44 RS [id number]) Orientation Orientation/Cognition Level of Alertness Alert Orientation Name Age Birthday Month Date Year Day of Week Place Situation Language Function Ability No Deficits Noted Safety Awareness Understands Safety Issues Memory Description No Deficits Noted Gross Range of Motion Upper Extremity ROM Assessment Within Functional Limits Lower Extremity ROM Impairments likely WFL structurally but limited by pain Strength Upper Extremity Strength Assessment Within Functional Limits Comments Strength Comments limited due to pain M6 PT-IP Treatment Start: 01/25/18 08:19 Freq: Status: Active Protocol: Document 01/29/18 10:45 GGD (Rec: 01/29/18 11:37 GGD [email or web address]) Physical Therapy Treatment Education Education Provided Precautions Brace Education [place] Other Treatments Other Treatment Performed Standing at EOB for > 5 min for self care with OT with CGA for balance. Mod A for donning and doffing brace. M7 PT-IP Assessment and Plan Start: 01/25/18 08:19 Freq: Status: Active Protocol: Document 01/29/18 10:45 GGD (Rec: 01/29/18 11:37 GGD [email or web address]) PT Summary Assessment and Plan Summary Assessment Summary Pt needs 2 assist with bed mobility. She need increase in cues for gait. She was slow moving. Frequency of Treatment Frequency Of Treatment Twice a Day Treatment Plan Physical Therapy Treatment Plan Bed Mobility Training Transfer Training Gait Training Therapeutic Exercise Discharge Planning Recommendations To Nursing Amount of Assist Needed 2 Person Assist Discharge Recommendations PT Discharge Recommendations SNF Rehab
--- NOTE | 2018-01-29 11:46 | PM.PN.1 ---
Subjective Date Patient Seen: 01/29/18 Time Patient Seen: 11:46 Interval history: Patient reports being able to do more today and this morning that she could yesterday. Still having an incredible amount of pain and discomfort. Definitely helped with the more regular dosing of oxycodone and actually some diazepam prior to physical therapy. Her braces clearly ill fitting and causing some skin breakdown issues particularly in the low back area. Exam Vital Signs (past 8 hours): - 01/29/18 06:00 01/29/18 08:04 01/29/18 10:02 Temperature 98.4 F 97.5 F L Pulse Rate 91 H 87 Respiratory Rate 16 14 Blood Pressure 147/80 H 149/77 H Pulse Oximetry 96 92 95 Fraction of Inspired Oxygen 21 Oxygen Delivery Method Room Air Oxygen Flow Rate 1.5 Objective Labs Result Diagrams: 01/25/18 02:02 01/25/18 02:02 Assessment & Plan Plan: Assessment/Plan Narrative: 1. Lumbar compression fracture-patient is still having a tremendous amount of pain. Is slowly improving. Hopefully we can get her better fitting brace although probably not tell Wednesday. She still requires too much care and is in too much discomfort to be appropriate for [facility] to [facility] as yet. However I do see that within the next couple of days. At this point I do not think there would be benefit to trying a different opiate narcotic for pain relief as she is getting relief I think the pain is merely coming from the fracture itself and there is very little more we can do for her. 2. Hypertension-numbers are definitely improved. Continue current meds without change. 3 GI-continue with bowel meds. Still been a couple of days since bowel movement. Continue to work trying to encourage this 4. Disposition-to [facility] when appropriate probably not for another 48 hr or more. Continue plan for discharge to [facility] if it all able. Note: Greater than 30 minutes was spent evaluating the patient on the floor, including examining the patient, discussing clinical course with clinical and nursing staff, reviewing clinical course in the computer, preparing documentation and writing orders for continued management of care, discussing status with family as appropriate, reviewing plans for the next 24 hours with both patient/family and nursing staff as appropriate. Quality VTE Deep Vein Thrombosis/Pulmonary Embolism Present on Admission: No
--- NOTE | 2018-01-29 11:50 | P.PN_ITS ---
Subjective Date Patient Seen: 01/29/18 Time Patient Seen: 11:46 Interval history: Patient reports being able to do more today and this morning that she could yesterday. Still having an incredible amount of pain and discomfort. Definitely helped with the more regular dosing of oxycodone and actually some diazepam prior to physical therapy. Her braces clearly ill fitting and causing some skin breakdown issues particularly in the low back area. Exam Vital Signs (past 8 hours): - 01/29/18 06:00 01/29/18 08:04 01/29/18 10:02 Temperature 98.4 F 97.5 F L Pulse Rate 91 H 87 Respiratory Rate 16 14 Blood Pressure 147/80 H 149/77 H Pulse Oximetry 96 92 95 Fraction of Inspired Oxygen 21 Oxygen Delivery Method Room Air Oxygen Flow Rate 1.5 Objective Labs Result Diagrams: 01/25/18 02:02 01/25/18 02:02 Assessment & Plan Plan: Assessment/Plan Narrative: 1. Lumbar compression fracture-patient is still having a tremendous amount of pain. Is slowly improving. Hopefully we can get her better fitting brace although probably not tell Wednesday. She still requires too much care and is in too much discomfort to be [facility]. However I do see that within the next couple of days. At this point I do not think there would be benefit to trying a different opiate narcotic for pain relief as she is getting relief I think the pain is merely coming from the fracture itself and there is very little more we can do for her. 2. Hypertension-numbers are definitely improved. Continue current meds without change. 3 GI-continue with bowel meds. Still been a couple of days since bowel movement. Continue to work trying to encourage this 4. Disposition-to prison when appropriate probably not for another 48 hr or more. Continue plan for discharge to [facility] if it all able. Note: Greater than 30 minutes was spent evaluating the patient on the floor, including examining the patient, discussing clinical course with clinical and nursing staff, reviewing clinical course in the computer, preparing documentation and writing orders for continued management of care, discussing status with family as appropriate, reviewing plans for the next 24 hours with both patient/family and nursing staff as appropriate. Quality VTE Deep Vein Thrombosis/Pulmonary Embolism Present on Admission: No
--- NOTE | 2018-01-29 12:42 | OT.IP.TRT ---
Current Diagnoses Other osteoporosis with current pathological fracture, vertebra(e), initial encounter for fracture (01/26/18) Other fracture of first lumbar vertebra, initial encounter for closed fracture (01/26/18) Occupational Therapy Treatment Note M2 OT-IP Current Condition Start: 01/26/18 11:48 Freq: Status: Active Protocol: Document 01/29/18 10:50 ADH (Rec: 01/29/18 12:42 ADH [id number]) Occupational Therapy Current Condition Current Condition Evaluation Date 01/27/18 Treatment Diagnosis L1 Compression fracture Diagnosis Onset Date 01/23/18 Post Operative Precautions Lumbar Precautions Log Roll No Twisting Limit Bending Other Precautions Brace to be worn when upright and ambulating, ok to take off for hygiene. Weight Bearing Status Weight Bearing Status Weight Bear as Tolerated M3 OT- IP Subjective and Pain Start: 01/26/18 11:48 Freq: Status: Active Protocol: Document 01/29/18 10:50 ADH (Rec: 01/29/18 12:42 ADH [id number]) OT- Subjective Occupational Therapy Visit Type Type Treatment Note Visit Start Time 09:50 Visit Stop Time 10:50 Total Visit Minutes 60 Notes Pt observed to have new red judah on L middle of back, shown to nursing and PA. Recommend care team adjusts how often brace is used, and recommend brace with better fit r/t pt's kyphosis. Occupational Therapy Visit Comments Patient Comments Pt c/o discomfort and pain in bed, agreeable to rousing. Of note, pt had not attempted to reposition self or use bed control in reach to readjust. Pt received education about repositioning and encouragement to self- reposition prn to increase pain management. OT Pain Assessment Pain When Pain Assessed At Rest Pain Present Pain Present Pain Reported Location Bilateral Lower Back Intensity 6 Scale Used Numeric (1 - 10) Management Techniques Distraction Modification of Treatment Re-positioning Timing of Activity with Medications M4 OT- IP ADL's Start: 01/26/18 11:48 Freq: Status: Active Protocol: Document 01/29/18 10:50 ADH (Rec: 01/29/18 12:42 ADH [id number]) OT ADL-Dressing General Eval Upper Body Dressing Ability Moderate Assistance Areas Needing Assistance Pull-Over Shirt Comments OT Dressing Comments Pt stood at FWW to don/doff gown with mod A, needing encouragement to open eyes and thread hands through arm holes. Pt c/o need to use bUE to weight bear, difficulty taking hands off FWW. OT ADL-Toileting General Evaluation Toileting Ability Maximum Assistance Areas Needing Assistance Empty Catheter or Colostomy Manage Clothing Perform Perineal Hygiene Comments OT Toileting Comments Pt with soiled brief, total A to doff/max A to don clean brief in standing. Pt w catheter. OT ADL-Bathing General Evaluation Bathing Ability Moderate Assistance Areas Needing Assistance Retrieving/Setting Up Items Wash/Dry Upper Body Comments OT Bathing Comments Pt able to stand and perform modified sponge bath with assistance. Pt unable to raise both hands from FWW, so needed assistance washing under folds of breasts, armpits, etc. M6 OT- IP Functional Cognition Start: 01/26/18 11:48 Freq: Status: Active Protocol: Document 01/27/18 10:00 [facility] (Rec: 01/27/18 12:58 [facility] [id number]) Cognitive Factors Limiting Selfcare Function Cognitive Ability Level of Alertness Alert Patient Orientation Name Place Situation Attention Span Ability Capable of Focused Attention Capable of Sustained Attention Ability to Follow Commands Able to Follow Multi-Step Commands Memory Description Immediate Intact Short Term Intact Safety Awareness No Deficits Noted Cognitive Comments Cognitive Assessment Comments Pt needing extra time to complete to complete commands. OT- Vision and Hearing OT- Hearing Assessment OT- Hearing Assessment WFL M7 OT- IP Mobility and Balance Start: 01/26/18 11:48 Freq: Status: Active Protocol: Document 01/28/18 15:10 ADH (Rec: 01/28/18 15:26 ADH [id number]) OT- Bed Mobility Assessment Rolling Type of Rolling Log Rolling Level of Assistance Maximum Assistance 2 Person Assistance OT-Transfer Assessment Sit to and From Stand Sit to and from Stand Minimal Assistance Transfers Transfer Ability Minimal Assistance Technique Transfer Destination Bed Chair Transfer Technique Stand Step Pivot Devices Transfer Assistive Devices Gait Belt Front Wheeled Walker Comments Mobility Comments Pt needing increased time with all functional mobility, prefering to initiate movements on her own to increase management of pain. M8 OT- IP Objective Assessments Start: 01/26/18 11:48 Freq: Status: Active Protocol: Document 01/27/18 10:00 [facility] (Rec: 01/27/18 12:58 [facility] [id number]) OT Gross Range of Motion Upper Extremity Range of Motion Assessment Within Functional Limits OT Strength Comments Strength Comments At least 4-/5 for all needs for BUE. OT-Muscle Tone Assessment Muscle Tone WNL Yes M9 OT- IP Assessment and Plan Start: 01/26/18 11:48 Freq: Status: Active Protocol: Document 01/29/18 10:50 ADH (Rec: 01/29/18 12:42 ADH [id number]) OT Summary Assessment and Plan Summary Progress Towards Goals Progressing Toward Goals Slow Progress due to Pain Slow Progress due to Activity Tolerance Assessment Summary Pt tolerating gradual increase in OOB activities, continues to need max extra time to perform all mobility and self- care tasks. Pt at risk of learned helplessness in hospital setting, and benefits from opportunities to perform tasks indepenently. Pain management continues to be large barrier toward initiation and performance of functional tasks. current brace fits well in standing, but has limited relief/comfort in sitting/reclining. Goals Dressing Goal Minimal Assistance Toileting Goal Minimal Assistance Discharge Recommendations OT Discharge Recommendations SNF Rehab
--- NOTE | 2018-01-29 15:26 | PT.IPTN ---
Current Diagnoses Other osteoporosis with current pathological fracture, vertebra(e), initial encounter for fracture (01/26/18) Other fracture of first lumbar vertebra, initial encounter for closed fracture (01/26/18) Physical Therapy Treatment Note M2 PT-IP Current Condition Start: 01/25/18 08:19 Freq: Status: Active Protocol: Document 01/25/18 15:21 IJS (Rec: 01/25/18 15:26 [facility] [id number]) Physical Therapy Current Condition Current Condition Evaluation Date 01/25/18 Treatment Diagnosis L1 fracture, impaired mobility Onset Date 01/23/18 Precautions Lumbar Precautions Log Roll No Twisting Limit Bending Other Precautions Brace to be worn when upright and ambulating, ok to take off for hygene. Weight Bearing Status Weight Bearing Status Weight Bear as Tolerated M3 PT-IP Subjective Start: 01/25/18 08:19 Freq: Status: Active Protocol: Document 01/29/18 14:10 RS (Rec: 01/29/18 15:26 RS [id number]) Subjective Physical Therapy Visit Type Type Treatment Note Visit Start Time 13:00 Visit Stop Time 14:10 Total Visit Minutes 70 Number of CUT ORDER HAND Visits 0 Physical Therapy Visit Comments Patient Comments Pt asleep in chair but awoke easily to voice. Pt agreeable to get up to bed for bed bath and rolling practice. Therapy Pain Assessment Pain When Pain Assessed During Mobility Pain Present Pain Present Pain Reported Location Bilateral Lower Back Intensity 10 Scale Used Numeric (1 - 10) Pain Behaviors Calling Out Facial Grimacing Moaning Wincing Pain Management Techniques Distraction Modification of Treatment Re-positioning Timing of Activity with Medications M4 PT-IP Mobility and Gait Start: 01/25/18 08:19 Freq: Status: Active Protocol: Document 01/29/18 14:10 RS (Rec: 01/29/18 15:26 RS [id number]) PT-Bed Mobility Assessment Rolling Type of Rolling Log Rolling Level of Assist Moderate Assistance Sit to Supine Sit to Supine Moderate Assistance 2 Person Assistance Bedrails Scooting Scooting Up and Down in Bed Dependent PT-Transfer Assessment Sit to and From Stand Sit to and from Stand Contact Guard Assistance Use of Upper Extremities Equipment Transfer Assistive Device Gait Belt Front Wheeled Walker Orthotic/Prosthetic Devices or Brace: Yes Transfers Transfer Destination Bed Transfer Ability Level of Assist Contact Guard Assistance 1 Person Assistance Use of Upper Extremities Comments Mobility Comments Pt difficult to keep aroused/ awake at first, but once more awake was able to mobilize with less assist. Pt prefers to do as much on her own as possible, but is extremely slow. Gait Assessment Gait Gait Assistance Required: Contact Guard Assist 1 Person Assist Distance (Feet) (feet) 15 Assistive Devices Assistive Device Gait Belt Front Wheeled Walker Gait Deviations General Gait Pattern Decreased Stride Length Decreased Feet Clearance Factors Limiting Gait Function Factors Limiting Gait Function Decreased Activity Tolerance Decreased Strength Limited Range of Motion Pain Comments Gait Comments Cues needed for object avoidance and turning with FWW when turning to sit on bed. Stair Climbing Assessment Comments Stair Climbing Comments not tested M5 PT-IP Objective Assessments Start: 01/25/18 08:19 Freq: Status: Active Protocol: Document 01/25/18 08:22 RS (Rec: 01/25/18 08:44 RS [id number]) Orientation Orientation/Cognition Level of Alertness Alert Orientation Name Age Birthday Month Date Year Day of Week Place Situation Language Function Ability No Deficits Noted Safety Awareness Understands Safety Issues Memory Description No Deficits Noted Gross Range of Motion Upper Extremity ROM Assessment Within Functional Limits Lower Extremity ROM Impairments likely WFL structurally but limited by pain Strength Upper Extremity Strength Assessment Within Functional Limits Comments Strength Comments limited due to pain M6 PT-IP Treatment Start: 01/25/18 08:19 Freq: Status: Active Protocol: Document 01/29/18 14:10 RS (Rec: 01/29/18 15:26 RS [id number]) Physical Therapy Treatment Education Education Provided Precautions Brace Education [place] Other Treatments Other Treatment Performed Rolling side to side in bed for doffing of TLSO and to participate in a bed bath. M7 PT-IP Assessment and Plan Start: 01/25/18 08:19 Freq: Status: Active Protocol: Document 01/29/18 14:10 RS (Rec: 01/29/18 15:26 RS [id number]) PT Summary Assessment and Plan Potential Rehabilitation Potential Fair Status of Condition at Evaluation Evolving Summary Impairments Pain ROM Strength Balance Bed Mobility Transfers Gait Activity Tolerance Progress Towards Goals Slow Progress due to Pain Assessment Summary Pt continues to slowly improve , definitely doing better than when pt first arrived at the hospital. However, pt is still significantly below reported functional baseline. Pt does have potential for functional improvement, continue to recommend pt transition to SNF rehab once medically ready. Frequency of Treatment Frequency Of Treatment Twice a Day Treatment Plan Physical Therapy Treatment Plan Bed Mobility Training Transfer Training Gait Training Therapeutic Exercise Discharge Planning Other Recommendations and Next Treatment rolling, distraction/ Focus mindfulness techniques for pain control, raymond w/ mobility Recommendations To Nursing Amount of Assist Needed 2 Person Assist Discharge Recommendations PT Discharge Recommendations SNF Rehab
[2018-01-29] MEDS: SENNOSIDES 8.6 MG TABLET 17.2 MG PO (22:14)
[2018-01-29] MEDS: SODIUM CHLORIDE 0.9% FLUSH 10 ML IV (22:16)
[2018-01-30] VITALS (10 sets, daily range): BP systolic 109–146; BP diastolic 66–79; PULSE 70–82; RESP 16–17; TEMP 35.7–38.8; O2SAT 90–97
[2018-01-30] MEDS: HYDROMORPHONE 0.5 MG INJ IV ×2 (00:25→06:30)
[2018-01-30] MEDS: PANTOPRAZOLE 20 MG TABLET PO (05:45)
[2018-01-30] MEDS: OXYCODONE IR 10 MG TABLET PO ×5 (05:45→21:21)
[2018-01-30] MEDS: POLYETHYLENE GLYCOL 3350 17 GM POWD.PACK PO ×2 (08:37→21:23)
[2018-01-30] MEDS: CALCITONIN,SALMON, NASAL SPRAY 1 SPRAYS NASAL (08:41)
[2018-01-30] MEDS: MAGNESIUM HYDROXIDE 30 ML UDC PO (08:41)
[2018-01-30] MEDS: ENOXAPARIN 40 MG/0.4 ML SYRINGE SUBCUT (08:41)
[2018-01-30] MEDS: diazePAM 2 MG TABLET PO ×2 (08:41→21:21)
[2018-01-30] MEDS: DOCUSATE 100 MG CAPSULE PO ×2 (08:41→21:23)
[2018-01-30] MEDS: FERROUS SULFATE 325 MG TABLET PO ×2 (08:42→21:22)
[2018-01-30] MEDS: GABAPENTIN 600 MG TABLET PO ×2 (08:42→21:22)
[2018-01-30] MEDS: AMLODIPINE 5 MG TABLET 10 MG PO (08:42)
[2018-01-30] MEDS: METOPROLOL 50 MG TABLET PO ×2 (08:43→21:22)
[2018-01-30] MEDS: SODIUM CHLORIDE 0.9% FLUSH 10 ML IV ×2 (08:43→21:23)
--- NOTE | 2018-01-30 09:18 | PM.PN.1 ---
Subjective Date Patient Seen: 01/30/18 Time Patient Seen: 09:19 Interval history: Patient with a history of vertebral compression fracture. Was having lot of issues pain control yesterday states things are better today. Exam Vital Signs (past 8 hours): - 01/30/18 05:45 01/30/18 08:00 Temperature 97.7 F 99.1 F Pulse Rate 70 73 Respiratory Rate 16 16 Blood Pressure 139/76 H 136/74 H Pulse Oximetry 96 97 Fraction of Inspired Oxygen 21 Oxygen Delivery Method Room Air Oxygen Flow Rate 0 Narrative Exam Narrative: Patient is without her brace on in bed this morning. Patient's brace is rather poorly fitting. Positive dorsiflexion and plantar flexion toes ankle. Palpable pulses. Objective Labs Result Diagrams: 01/25/18 02:02 01/25/18 02:02 Assessment & Plan Plan: Assessment/Plan Narrative: Patient will have her brace refitted her customized tomorrow. That should make things a lot comfortable for her and allow her more mobility. Quality VTE Deep Vein Thrombosis/Pulmonary Embolism Present on Admission: No
--- NOTE | 2018-01-30 11:19 | PM.PN.1 ---
Subjective Date Patient Seen: 01/30/18 Time Patient Seen: 11:19 Interval history: Patient was able to do more physical therapy yesterday. Still having a lot of pain and actually asked for and received a couple of doses of IV hydromorphone. Exam Vital Signs (past 8 hours): - 01/30/18 05:45 01/30/18 08:00 Temperature 97.7 F 99.1 F Pulse Rate 70 73 Respiratory Rate 16 16 Blood Pressure 139/76 H 136/74 H Pulse Oximetry 96 97 Fraction of Inspired Oxygen 21 Oxygen Delivery Method Room Air Oxygen Flow Rate 0 Objective Labs Result Diagrams: 01/25/18 02:02 01/25/18 02:02 Assessment & Plan Plan: Assessment/Plan Narrative: 1. Lumbar compression fracture-still having tremendous amount of pain. She went 10+ hr without a dose of oxycodone yesterday, so I am going to change it today so that she gets a dose every 4 hr and was still have the as needed doses available. Hopefully a better fitting brace which we can obtain tomorrow (per Orthopedic surgery) will be of benefit as well. At this point she is still too much care to go to residential, which will be her destination 2. Hypertension-numbers are improved 3. GI-continue bowel meds. I did increase the dose of her MiraLax yesterday. 4. Disposition-patient to go to [facility] when medically appropriate Note: Greater than 30 minutes was spent evaluating the patient on the floor, including examining the patient, discussing clinical course with clinical and nursing staff, reviewing clinical course in the computer, preparing documentation and writing orders for continued management of care, discussing status with family as appropriate, reviewing plans for the next 24 hours with both patient/family and nursing staff as appropriate. Quality VTE Deep Vein Thrombosis/Pulmonary Embolism Present on Admission: No
--- NOTE | 2018-01-30 11:45 | PC.NURSE ---
AM NOTE - awakens easily, states pain 6-7 and had been worse during night, relieved by the earlier iv dilaudid, discussed pain mgt, timing, did have earlier oxycodone and will continue regular admin, given 2mg po valium this am for planned phys therapy and later 10mg oxycodone prior to mobilization. RA 97%, hr 78, was on bedpan earlier w/flatus, no bm, added 30ml MOM this am, some redness at coccyx after bedpan and has an allevyn drsg l post torso from pressure from brace, phys therapy reapplied brace this am for mobilization, pt very slow and cries out with pain with any movement,, it took over 20 minutes to log roll and place brace, then sat up and using fww, steps in room and tsf to chair. Discussed iv medications during night with and IV will not be restarted at this time.
--- NOTE | 2018-01-30 12:41 | PT.IPTN ---
Current Diagnoses Other osteoporosis with current pathological fracture, vertebra(e), initial encounter for fracture (01/26/18) Other fracture of first lumbar vertebra, initial encounter for closed fracture (01/26/18) Physical Therapy Treatment Note M2 PT-IP Current Condition Start: 01/25/18 08:19 Freq: Status: Active Protocol: Document 01/25/18 15:21 IJS (Rec: 01/25/18 15:26 IJS [id number]) Physical Therapy Current Condition Current Condition Evaluation Date 01/25/18 Treatment Diagnosis L1 fracture, impaired mobility Onset Date 01/23/18 Precautions Lumbar Precautions Log Roll No Twisting Limit Bending Other Precautions Brace to be worn when upright and ambulating, ok to take off for hygene. Weight Bearing Status Weight Bearing Status Weight Bear as Tolerated M3 PT-IP Subjective Start: 01/25/18 08:19 Freq: Status: Active Protocol: Document 01/30/18 11:12 CLB (Rec: 01/30/18 12:40 CLB [id number]) Subjective Physical Therapy Visit Type Type Treatment Note Visit Start Time 11:12 Visit Stop Time 12:05 Total Visit Minutes 53 Number of LABORER ELECTROPLATING Visits 1 Physical Therapy Visit Comments Patient Comments Pt agreed to get up OOB for walk and sit in chair for lunch. Therapy Pain Assessment Pain When Pain Assessed During Mobility Pain Present Pain Present Pain Reported Location Bilateral Lower Back Intensity 10 Scale Used Numeric (1 - 10) Pain Behaviors Calling Out Facial Grimacing Moaning Wincing Pain Management Techniques Distraction Modification of Treatment Re-positioning Timing of Activity with Medications M4 PT-IP Mobility and Gait Start: 01/25/18 08:19 Freq: Status: Active Protocol: Document 01/30/18 11:12 CLB (Rec: 01/30/18 12:40 CLB [id number]) PT-Bed Mobility Assessment Rolling Type of Rolling Log Rolling Level of Assist Moderate Assistance Supine to Sit Supine to Sit Maximum Assistance 2 Person Assistance Scooting Scooting to Edge of Bed Moderate Assistance PT-Transfer Assessment Sit to and From Stand Sit to and from Stand Contact Guard Assistance Use of Upper Extremities Equipment Transfer Assistive Device Gait Belt Front Wheeled Walker Orthotic/Prosthetic Devices or Brace: Yes Transfers Transfer Destination Chair Transfer Ability Level of Assist Contact Guard Assistance 1 Person Assistance Use of Upper Extremities Comments Mobility Comments Pt moves very slowly with all mobility and is resistant to assist due to fear of increased pain. Gait Assessment Gait Gait Assistance Required: Contact Guard Assist 1 Person Assist Distance (Feet) (feet) 15 Assistive Devices Assistive Device Gait Belt Front Wheeled Walker Gait Deviations General Gait Pattern Decreased Stride Length Decreased Feet Clearance Factors Limiting Gait Function Factors Limiting Gait Function Decreased Activity Tolerance Decreased Strength Limited Range of Motion Pain Comments Gait Comments Pt needed cues for turning with walker and chair approach as well and one step directions for positioning in front of chair. Stair Climbing Assessment Comments Stair Climbing Comments not tested M5 PT-IP Objective Assessments Start: 01/25/18 08:19 Freq: Status: Active Protocol: Document 01/25/18 08:22 RS (Rec: 01/25/18 08:44 RS [id number]) Orientation Orientation/Cognition Level of Alertness Alert Orientation Name Age Birthday Month Date Year Day of Week Place Situation Language Function Ability No Deficits Noted Safety Awareness Understands Safety Issues Memory Description No Deficits Noted Gross Range of Motion Upper Extremity ROM Assessment Within Functional Limits Lower Extremity ROM Impairments likely WFL structurally but limited by pain Strength Upper Extremity Strength Assessment Within Functional Limits Comments Strength Comments limited due to pain M6 PT-IP Treatment Start: 01/25/18 08:19 Freq: Status: Active Protocol: Document 01/29/18 14:10 RS (Rec: 01/29/18 15:26 RS [id number]) Physical Therapy Treatment Education Education Provided Precautions Brace Education Donning [place] Other Treatments Other Treatment Performed Rolling side to side in bed for doffing of TLSO and to participate in a bed bath. M7 PT-IP Assessment and Plan Start: 01/25/18 08:19 Freq: Status: Active Protocol: Document 01/30/18 11:12 CLB (Rec: 01/30/18 12:40 CLB [id number]) PT Summary Assessment and Plan Potential Rehabilitation Potential Fair Status of Condition at Evaluation Evolving Summary Impairments Pain ROM Strength Balance Bed Mobility Transfers Gait Activity Tolerance Progress Towards Goals Slow Progress due to Pain Assessment Summary Pt continues to improve slowly due to pain and needs 2 assist for log roll and supine >sit. Pt will need SNF rehab to improve mobility once medically stable. Frequency of Treatment Frequency Of Treatment Twice a Day Treatment Plan Physical Therapy Treatment Plan Bed Mobility Training Transfer Training Gait Training Therapeutic Exercise Discharge Planning Other Recommendations and Next Treatment rolling, distraction/ Focus mindfulness techniques for pain control, raymond w/ mobility Recommendations To Nursing Amount of Assist Needed 2 Person Assist Discharge Recommendations PT Discharge Recommendations SNF Rehab
--- NOTE | 2018-01-30 14:34 | CM.DPC ---
DCP: continued: Case again received yesterday and EMR reviewed 01/26 to present. Checked in with pt in followup to plan. She was found up in bedside butch, specialized brace in place, looking very uncomfortable. She agreed this process has all been quite painful. Discussed case yesterday with Dr. Castaneda and explained issues re insurance auth process. He noted that pt would not be stable for d/c until at least Wednesday. Spoke with Mike/warranty administrator of [facility] after receiving a vm message left on [phone] line from Gen. She noted that she had spoken on Wednesday afternoon with admissions/Dasia and that she didn't seem to understand the snf/insurance auth process. [facility]ra further noted that [facility] would not be available for further discussion as they are closed on weekends. Discussed same with Mike (on job for his first week) who stated that Katie/[facility] primary admissions liaison/would be back tomorrow (Wednesday 01/31) and would take over the snf auth process. To help facilitate this process have now faxed clinical including therapy updates to [facility]in: [phone] and [facility]. Plan: remains [facility] pending medical stability and insurance authorization.
--- NOTE | 2018-01-30 15:43 | PT.IPTN ---
Current Diagnoses Other osteoporosis with current pathological fracture, vertebra(e), initial encounter for fracture (01/26/18) Other fracture of first lumbar vertebra, initial encounter for closed fracture (01/26/18) Physical Therapy Treatment Note M2 PT-IP Current Condition Start: 01/25/18 08:19 Freq: Status: Active Protocol: Document 01/25/18 15:21 IJS (Rec: 01/25/18 15:26 IJS [id number]) Physical Therapy Current Condition Current Condition Evaluation Date 01/25/18 Treatment Diagnosis L1 fracture, impaired mobility Onset Date 01/23/18 Precautions Lumbar Precautions Log Roll No Twisting Limit Bending Other Precautions Brace to be worn when upright and ambulating, ok to take off for hygene. Weight Bearing Status Weight Bearing Status Weight Bear as Tolerated M3 PT-IP Subjective Start: 01/25/18 08:19 Freq: Status: Active Protocol: Document 01/30/18 14:22 CLB (Rec: 01/30/18 15:43 CLB [id number]) Subjective Physical Therapy Visit Type Type Treatment Note Visit Start Time 14:22 Visit Stop Time 15:03 Total Visit Minutes 43 Number of TREASURY DIRECTOR Visits 2 Physical Therapy Visit Comments Patient Comments Pt wanting to get BTB but stated she pooped her pants. RN informed. Therapy Pain Assessment Pain When Pain Assessed During Mobility Pain Present Pain Present Pain Reported M4 PT-IP Mobility and Gait Start: 01/25/18 08:19 Freq: Status: Active Protocol: Document 01/30/18 14:22 CLB (Rec: 01/30/18 15:43 CLB [id number]) PT-Bed Mobility Assessment Rolling Type of Rolling Log Rolling Level of Assist Moderate Assistance Sit to Supine Sit to Supine Moderate Assistance 2 Person Assistance Bedrails PT-Transfer Assessment Sit to and From Stand Sit to and from Stand Contact Guard Assistance Use of Upper Extremities Equipment Transfer Assistive Device Gait Belt Front Wheeled Walker Orthotic/Prosthetic Devices or Brace: Yes Transfers Transfer Destination Bed Transfer Ability Level of Assist Contact Guard Assistance 1 Person Assistance Use of Upper Extremities Comments Mobility Comments Pt moves slowly needing increased assist with bed mobility. Gait Assessment Gait Gait Assistance Required: Contact Guard Assist 1 Person Assist Distance (Feet) (feet) 5 Assistive Devices Assistive Device Gait Belt Front Wheeled Walker Gait Deviations General Gait Pattern Decreased Stride Length Decreased Feet Clearance Factors Limiting Gait Function Factors Limiting Gait Function Decreased Activity Tolerance Decreased Strength Limited Range of Motion Pain Comments Gait Comments Pt needs verbal cues for bed approach and side stepping for good bed positioning. Pt can follow 1 step commands. M5 PT-IP Objective Assessments Start: 01/25/18 08:19 Freq: Status: Active Protocol: Document 01/25/18 08:22 RS (Rec: 01/25/18 08:44 RS [id number]) Orientation Orientation/Cognition Level of Alertness Alert Orientation Name Age Birthday Month Date Year Day of Week Place Situation Language Function Ability No Deficits Noted Safety Awareness Understands Safety Issues Memory Description No Deficits Noted Gross Range of Motion Upper Extremity ROM Assessment Within Functional Limits Lower Extremity ROM Impairments likely WFL structurally but limited by pain Strength Upper Extremity Strength Assessment Within Functional Limits Comments Strength Comments limited due to pain M6 PT-IP Treatment Start: 01/25/18 08:19 Freq: Status: Active Protocol: Document 01/29/18 14:10 RS (Rec: 01/29/18 15:26 RS [id number]) Physical Therapy Treatment Education Education Provided Precautions Brace Education Donning [place] Other Treatments Other Treatment Performed Rolling side to side in bed for doffing of TLSO and to participate in a bed bath. M7 PT-IP Assessment and Plan Start: 01/25/18 08:19 Freq: Status: Active Protocol: Document 01/30/18 14:22 CLB (Rec: 01/30/18 15:43 CLB [id number]) PT Summary Assessment and Plan Potential Status of Condition at Evaluation Evolving Summary Impairments Pain ROM Strength Balance Bed Mobility Transfers Gait Activity Tolerance Progress Towards Goals Slow Progress due to Pain Assessment Summary Pt refused ambulation due to pt needing to stand so that RN could perform pericare. Pt continues to move slowly needing one step verbal cues for all sequencing with mobility. Frequency of Treatment Frequency Of Treatment Twice a Day Treatment Plan Physical Therapy Treatment Plan Bed Mobility Training Transfer Training Gait Training Therapeutic Exercise Discharge Planning Other Recommendations and Next Treatment rolling, distraction/ Focus mindfulness techniques for pain control, raymond w/ mobility Recommendations To Nursing Amount of Assist Needed 2 Person Assist Discharge Recommendations PT Discharge Recommendations SNF Rehab
[2018-01-30] MEDS: SENNOSIDES 8.6 MG TABLET 17.2 MG PO (21:22)
[2018-01-31] VITALS (8 sets, daily range): BP systolic 109–131; BP diastolic 64–75; PULSE 67–88; RESP 15–18; TEMP 36.3–37.5; O2SAT 90–99
[2018-01-31] MEDS: OXYCODONE IR 10 MG TABLET PO ×7 (04:45→21:39)
[2018-01-31] MEDS: PANTOPRAZOLE 20 MG TABLET PO (05:50)
--- NOTE | 2018-01-31 06:36 | PC.NURSE ---
Pt is AxOx3, VSS. Oxycodone 10mg given 1x with relief. Milian bag patent and put out 175mL of dark yellow urine, PO intake encouraged. Pt was very lethargic throughout shift but easily arousable after a minute of getting her to wake up. T&P q2h. Bed alarm on. No BM overnight. No IV access. Pt appears comfortable. Redness noted to back due to brace, brace not on throughout the night. Call hernandez within reach.
--- NOTE | 2018-01-31 07:34 | PM.PN.1 ---
Subjective Date Patient Seen: 01/31/18 Time Patient Seen: 07:34 Interval history: Hospital day 6 with history of L1 compression fracture. Does have TLSO brace in place although the brace does not appear to fit well. Physical therapy/OT is aware and in the process of setting this up. She is transferring to her bedside chair, and ambulating in her room. Denies any leg pain or numbness. Anticipate discharge to [facility] when she is stable for further care prior to going home. Exam Vital Signs (past 8 hours): - 01/31/18 00:55 01/31/18 04:00 Temperature 97.8 F 97.5 F L Pulse Rate 67 70 Respiratory Rate 17 16 Blood Pressure 118/66 131/75 H Pulse Oximetry 92 95 Fraction of Inspired Oxygen 21 Oxygen Delivery Method Room Air Oxygen Flow Rate 0 Narrative Exam Narrative: Patient is sitting up in bed in no acute distress. She is alert and oriented x3. Sensation intact to light touch throughout bilateral lower extremities. Pulses are symmetrical. Calves are soft, compressible, nontender bilaterally. She is able to actively dorsiflex and plantar flex. Objective Labs Result Diagrams: 01/25/18 02:02 01/25/18 02:02 Assessment & Plan (1) Closed L1 vertebral fracture: Qualifiers: Encounter type: initial encounter Fracture healing: Fracture morphology: other fracture Qualified Code(s): S32.018A - Other fracture of first lumbar vertebra, initial encounter for closed fracture Current visit: Yes Status: Acute (2) Osteoporosis: Problem details: DEXA november 2017 Current visit: Yes Status: Chronic Quality VTE Deep Vein Thrombosis/Pulmonary Embolism Present on Admission: No
--- NOTE | 2018-01-31 08:37 | P.PN_ITS ---
Subjective Date Patient Seen: 01/31/18 Time Patient Seen: 08:35 Interval history: Patient reports just as much pain yesterday as the day before. However her activity level increased slightly. She thinks the current medication given every 4 hr while awake for pain with some supplemental as needed is a better way to give the pain medication even though as above she does not really report any decrease in pain No new issues. Did have bowel movement yesterday. Exam Vital Signs (past 8 hours): - 01/31/18 00:55 01/31/18 04:00 01/31/18 07:52 Temperature 97.8 F 97.5 F L 99.5 F Pulse Rate 67 70 75 Respiratory Rate 17 16 15 Blood Pressure 118/66 131/75 H 125/64 H Pulse Oximetry 92 95 93 Fraction of Inspired Oxygen 21 Oxygen Delivery Method Room Air Oxygen Flow Rate 0 Narrative Exam Narrative: Unchanged from previous Objective Labs Result Diagrams: 01/25/18 02:02 01/25/18 02:02 Assessment & Plan Plan: Assessment/Plan Narrative: 1. Lumbar compression fracture-having tremendous amount of pain but it does seem like the scheduled oxycodone is an improvement. Hopefully a better fitting brace can be obtained for patient. Still too much pain and too much disability to go to residential 2. Hypertension-numbers improved 3. GI-patient's bowels seem to be somewhat improved. I did up the dose of her MiraLax significantly will have to observe for need to turn down her dose 4. Disposition-to residential when medically appropriate. Hopefully next 24-48 hours. Note: Greater than 30 minutes was spent evaluating the patient on the floor, including examining the patient, discussing clinical course with clinical and nursing staff, reviewing clinical course in the computer, preparing documentation and writing orders for continued management of care, discussing status with family as appropriate, reviewing plans for the next 24 hours with both patient/family and nursing staff as appropriate. Quality VTE Deep Vein Thrombosis/Pulmonary Embolism Present on Admission: No
[2018-01-31] MEDS: AMLODIPINE 5 MG TABLET 10 MG PO (09:15)
[2018-01-31] MEDS: DOCUSATE 100 MG CAPSULE PO ×2 (09:15→21:39)
[2018-01-31] MEDS: CALCITONIN,SALMON, NASAL SPRAY 1 SPRAYS NASAL (09:15)
[2018-01-31] MEDS: GABAPENTIN 600 MG TABLET PO ×2 (09:16→21:40)
[2018-01-31] MEDS: FERROUS SULFATE 325 MG TABLET PO ×2 (09:16→21:40)
[2018-01-31] MEDS: METOPROLOL 50 MG TABLET PO ×2 (09:16→21:40)
[2018-01-31] MEDS: ENOXAPARIN 40 MG/0.4 ML SYRINGE SUBCUT (09:16)
[2018-01-31] MEDS: MAGNESIUM HYDROXIDE 30 ML UDC PO (09:20)
--- NOTE | 2018-01-31 10:07 | PC.NURSE ---
Day shift: Contacted Dr Castaneda about fitted back brace at the request of PT/OT. This report writer told by Dr Castaneda PT/OT can order the brace that is needed. Per convo w/ PT/OT the back brace person will be in today and they will tell OT/PT exactly what is needed to be ordered. Discussed this w/ PT/OT and they understand.
--- NOTE | 2018-01-31 10:11 | PT.IPTN ---
Current Diagnoses Other osteoporosis with current pathological fracture, vertebra(e), initial encounter for fracture (01/26/18) Age-related osteoporosis without current pathological fracture (01/26/18) Other fracture of first lumbar vertebra, initial encounter for closed fracture (01/26/18) Physical Therapy Treatment Note Subjective Physical Therapy Visit Type Type Patient Refusal Total Visit Minutes 0 Physical Therapy Visit Comments Patient Comments Pt reports she is supposed to be getting a custom brace as the [id number] TLSO is uncomfortable and causing skin breakdown. This policy writer sales remembers two days ago the doctor and RN discussing this, but no order was ever put in. Pt's RN called Dr. Castaneda this morning to clarify, and the verbal order was given for pt to receive a custom TLSO. The P&O will be on campus this afternoon delivering a brace for a different patient, hopefully she'll be able to measure the patient at that time. As of right now the patient is declining to get the old brace on and wants to wait for the new brace for any mobility OOB.
--- NOTE | 2018-01-31 10:57 | OT.IP.TRT ---
Current Diagnoses Other osteoporosis with current pathological fracture, vertebra(e), initial encounter for fracture (01/26/18) Age-related osteoporosis without current pathological fracture (01/26/18) Other fracture of first lumbar vertebra, initial encounter for closed fracture (01/26/18) Occupational Therapy Treatment Note M2 OT-IP Current Condition Start: 01/26/18 11:48 Freq: Status: Active Protocol: Document 01/31/18 10:48 ADH (Rec: 01/31/18 10:56 ADH [id number]) Occupational Therapy Current Condition Current Condition Evaluation Date 01/27/18 Treatment Diagnosis L1 Compression fracture Diagnosis Onset Date 01/23/18 Post Operative Precautions Lumbar Precautions Log Roll No Twisting Limit Bending Other Precautions Brace to be worn when upright and ambulating, ok to take off for hygiene. Weight Bearing Status Weight Bearing Status Weight Bear as Tolerated M3 OT- IP Subjective and Pain Start: 01/26/18 11:48 Freq: Status: Active Protocol: Document 01/31/18 10:48 ADH (Rec: 01/31/18 10:56 ADH [id number]) OT- Subjective Occupational Therapy Visit Type Type Treatment Note Visit Start Time 10:01 Visit Stop Time 10:48 Total Visit Minutes 47 Notes Pt agreeable to OT services. Upon entering pt reclined in bed, HOB raised, brace off. Pt refused to don brace for OOB activities. Extensive education about importance of activity during recovery, brace fit process, mobility progression, therapeutic reasoning, etc. Pt able to establish goals for therapy, but needed education about realistic pain expectations. Pt ultimately agreeable to in bed therex to support activity tolerance goals. 1 x 5 reps each bUE bicep flexion/ extension, shoulder flexion, internal/externation rotation, forward punches, shoulder abduction/adduction with 0 c/o pain. OT Pain Assessment Pain When Pain Assessed At Rest Pain Present Pain Present Denied Pain M4 OT- IP ADL's Start: 01/26/18 11:48 Freq: Status: Active Protocol: Document 01/29/18 10:50 ADH (Rec: 01/29/18 12:42 ADH [id number]) OT ADL-Dressing General Eval Upper Body Dressing Ability Moderate Assistance Areas Needing Assistance Pull-Over Shirt Comments OT Dressing Comments Pt stood at FWW to don/doff gown with mod A, needing encouragement to open eyes and thread hands through arm holes. Pt c/o need to use bUE to weight bear, difficulty taking hands off FWW. OT ADL-Toileting General Evaluation Toileting Ability Maximum Assistance Areas Needing Assistance Empty Catheter or Colostomy Manage Clothing Perform Perineal Hygiene Comments OT Toileting Comments Pt with soiled brief, total A to doff/max A to don clean brief in standing. Pt w catheter. OT ADL-Bathing General Evaluation Bathing Ability Moderate Assistance Areas Needing Assistance Retrieving/Setting Up Items Wash/Dry Upper Body Comments OT Bathing Comments Pt able to stand and perform modified sponge bath with assistance. Pt unable to raise both hands from FWW, so needed assistance washing under folds of breasts, armpits, etc. M6 OT- IP Functional Cognition Start: 01/26/18 11:48 Freq: Status: Active Protocol: Document 01/27/18 10:00 [facility] (Rec: 01/27/18 12:58 [facility] [id number]) Cognitive Factors Limiting Selfcare Function Cognitive Ability Level of Alertness Alert Patient Orientation Name Place Situation Attention Span Ability Capable of Focused Attention Capable of Sustained Attention Ability to Follow Commands Able to Follow Multi-Step Commands Memory Description Immediate Intact Short Term Intact Safety Awareness No Deficits Noted Cognitive Comments Cognitive Assessment Comments Pt needing extra time to complete to complete commands. OT- Vision and Hearing OT- Hearing Assessment OT- Hearing Assessment WFL M7 OT- IP Mobility and Balance Start: 01/26/18 11:48 Freq: Status: Active Protocol: Document 01/28/18 15:10 ADH (Rec: 01/28/18 15:26 ADH [id number]) OT- Bed Mobility Assessment Rolling Type of Rolling Log Rolling Level of Assistance Maximum Assistance 2 Person Assistance OT-Transfer Assessment Sit to and From Stand Sit to and from Stand Minimal Assistance Transfers Transfer Ability Minimal Assistance Technique Transfer Destination Bed Chair Transfer Technique Stand Step Pivot Devices Transfer Assistive Devices Gait Belt Front Wheeled Walker Comments Mobility Comments Pt needing increased time with all functional mobility, prefering to initiate movements on her own to increase management of pain. M8 OT- IP Objective Assessments Start: 01/26/18 11:48 Freq: Status: Active Protocol: Document 01/27/18 10:00 [facility] (Rec: 01/27/18 12:58 [facility] [id number]) OT Gross Range of Motion Upper Extremity Range of Motion Assessment Within Functional Limits OT Strength Comments Strength Comments At least 4-/5 for all needs for BUE. OT-Muscle Tone Assessment Muscle Tone WNL Yes M9 OT- IP Assessment and Plan Start: 01/26/18 11:48 Freq: Status: Active Protocol: Document 01/31/18 10:48 ADH (Rec: 01/31/18 10:56 ADH [id number]) OT Summary Assessment and Plan Summary Progress Towards Goals Slow Progress due to Pain Assessment Summary Pt able to tolerate 1 x 5 reps each bUE therex with L1 theraband, with goal of increasing strength/activity for rehab. Pt declining OOB or self care activities this session. Treatment Plan OT Treatment Plan Functional Mobility Other Treatment Recommendations and Next transfers and functional Treatment Focus activities with brace Discharge Recommendations OT Discharge Recommendations SNF Rehab
--- NOTE | 2018-01-31 11:40 | CM.DPC ---
DCP/continued: Received call from Katie at [facility], she confirms that they can accept at time of d/c. Originally, it was thought that patient would have to pay higher copay at [facility] because they are out of network. Turns out copay does not change regardless of whether patient in or out of network. Reviewed MD notes from today. Patient remains with pain issues and discharge expected in the next 24-48hrs. [facility] notified. P: [facility] when patient medically stable. Patient most likely will need non urgent BLS transport. KATHLEEN Arroyo
[2018-01-31] MEDS: SENNOSIDES 8.6 MG TABLET 17.2 MG PO (21:39)
[2018-02-01] VITALS (9 sets, daily range): BP systolic 103–129; BP diastolic 56–70; PULSE 64–88; RESP 15–17; TEMP 36.5–37.5; O2SAT 91–96
[2018-02-01] MEDS: OXYCODONE IR 10 MG TABLET PO ×5 (00:11→19:01)
--- NOTE | 2018-02-01 08:02 | P.PN_ITS ---
Subjective Date Patient Seen: 02/01/18 Time Patient Seen: 07:59 Interval history: Pt is hospital day 7 with L1 compression fracture. Does not have TLSO brace on this am. Previous brace did not fit well and PT is going to get her a new brace. C/o of pain in back. Denies leg symptoms. Plan is to d/ c to [facility] when medically stable. Milian in. Exam Vital Signs (past 8 hours): - 02/01/18 00:10 02/01/18 03:00 02/01/18 05:05 Temperature 98.9 F 98.7 F Pulse Rate 86 64 Respiratory Rate 15 16 Blood Pressure 129/70 H 103/56 L Pulse Oximetry 93 92 93 02/01/18 06:19 Temperature Pulse Rate Respiratory Rate Blood Pressure Pulse Oximetry 95 Fraction of Inspired Oxygen 21 Oxygen Delivery Method Room Air Oxygen Flow Rate 0 Narrative Exam Narrative: Pt in bed. A&O x3. BLE 5/5 strength. NV status intact. Wei calves soft and nontender. Milian in. Objective Labs Result Diagrams: 01/25/18 02:02 01/25/18 02:02 Assessment & Plan Plan: Assessment/Plan Narrative: Pt to be fitted with a new TLSO brace. Mobilize with PT. Plan to D/C to [facility] when medically stable. Quality VTE Deep Vein Thrombosis/Pulmonary Embolism Present on Admission: No
--- NOTE | 2018-02-01 08:07 | PM.PN.1 ---
Subjective Date Patient Seen: 02/01/18 Time Patient Seen: 08:07 Interval history: Patient with a smile on her face this morning. Apparently the new more custom better fitting brace should be available to her today. Bowels seem to be working. Still has a lot of pain yesterday when trying to appropriately evaluate in size a new brace. However has been a bit more functional up and around per nursing staff Exam Vital Signs (past 8 hours): - 02/01/18 00:10 02/01/18 03:00 02/01/18 05:05 Temperature 98.9 F 98.7 F Pulse Rate 86 64 Respiratory Rate 15 16 Blood Pressure 129/70 H 103/56 L Pulse Oximetry 93 92 93 02/01/18 06:19 Temperature Pulse Rate Respiratory Rate Blood Pressure Pulse Oximetry 95 Fraction of Inspired Oxygen 21 Oxygen Delivery Method Room Air Oxygen Flow Rate 0 Objective Labs Result Diagrams: 01/25/18 02:02 01/25/18 02:02 Assessment & Plan Plan: Assessment/Plan Narrative: 1. Lumbar compression fracture-does seem to be slowly improving. Continue with scheduled dose oxycodone plus the as needed dosing. Hopefully the better fitting brace will provide more support with less skin breakdown other issues that will allow her to improve more quickly. Given patient's progression I am still hopeful that she can be discharged to long term sometime in the next 72 hr. However it has been slow thus far and it may take that full 72 hr for her to reach medically stable point. 2. Hypertension-numbers continue be improved. No change in meds 3. GI-no issue with bowels at this time. Continue with current laxatives and/or stool softeners and bowel meds. 4. Disposition-to long term when appropriate. Timing as above. Note: Greater than 30 minutes was spent evaluating the patient on the floor, including examining the patient, discussing clinical course with clinical and nursing staff, reviewing clinical course in the computer, preparing documentation and writing orders for continued management of care, discussing status with family as appropriate, reviewing plans for the next 24 hours with both patient/family and nursing staff as appropriate. Quality VTE Deep Vein Thrombosis/Pulmonary Embolism Present on Admission: No
[2018-02-01] MEDS: CALCITONIN,SALMON, NASAL SPRAY 1 SPRAYS NASAL (08:56)
[2018-02-01] MEDS: MAGNESIUM HYDROXIDE 30 ML UDC PO (08:58)
[2018-02-01] MEDS: GABAPENTIN 600 MG TABLET PO ×2 (08:59→20:43)
[2018-02-01] MEDS: METOPROLOL 50 MG TABLET PO ×2 (08:59→20:44)
[2018-02-01] MEDS: ENOXAPARIN 40 MG/0.4 ML SYRINGE SUBCUT (08:59)
[2018-02-01] MEDS: DOCUSATE 100 MG CAPSULE PO ×2 (08:59→20:43)
[2018-02-01] MEDS: FERROUS SULFATE 325 MG TABLET PO ×2 (08:59→20:43)
[2018-02-01] MEDS: AMLODIPINE 5 MG TABLET 10 MG PO (08:59)
[2018-02-01] MEDS: PANTOPRAZOLE 20 MG TABLET PO (09:07)
--- NOTE | 2018-02-01 10:41 | OT.IP.TRT ---
Current Diagnoses Other osteoporosis with current pathological fracture, vertebra(e), initial encounter for fracture (01/26/18) Age-related osteoporosis without current pathological fracture (01/26/18) Other fracture of first lumbar vertebra, initial encounter for closed fracture (01/26/18) Occupational Therapy Treatment Note M2 OT-IP Current Condition Start: 01/26/18 11:48 Freq: Status: Active Protocol: Document 01/31/18 10:48 ADH (Rec: 01/31/18 10:56 ADH [id number]) Occupational Therapy Current Condition Current Condition Evaluation Date 01/27/18 Treatment Diagnosis L1 Compression fracture Diagnosis Onset Date 01/23/18 Post Operative Precautions Lumbar Precautions Log Roll No Twisting Limit Bending Other Precautions Brace to be worn when upright and ambulating, ok to take off for hygiene. Weight Bearing Status Weight Bearing Status Weight Bear as Tolerated M3 OT- IP Subjective and Pain Start: 01/26/18 11:48 Freq: Status: Active Protocol: Document 02/01/18 10:41 PJM (Rec: 02/01/18 16:38 PJM [id number]) OT- Subjective Occupational Therapy Visit Type Type Treatment Note Visit Start Time 10:00 Visit Stop Time 10:41 Total Visit Minutes 41 Notes Pt seen in bed this session awaiting arrival of custom TLSO brace this PM. OT Pain Assessment Pain When Pain Assessed After Treatment Pain Present Pain Present Pain Reported Location Bilateral Lower Back Intensity 8 Scale Used Numeric (1 - 10) Description Aching Acute Pain Behaviors Guarding Management Techniques Distraction Timing of Activity with Medications M4 OT- IP ADL's Start: 01/26/18 11:48 Freq: Status: Active Protocol: Document 02/01/18 10:41 PJM (Rec: 02/01/18 16:38 PJM [id number]) OT ADL-Grooming General Evaluation Grooming Ability Minimal Assistance Areas Needing Assistance Retrieving/Set-up of Grooming Items Combing/Brushing Hair Comments OT Grooming Comments Pt SBA to wash face and min assist for thoroughness with combing hair; c/o increased LBP when reaching to top and back of head. OT ADL-Dressing General Eval Lower Body Dressing Ability Total Assistance Assistive Devices Dressing Assistive Devices Long Handled Shoe Horn Quality Auditor Sock Aid Comments OT Dressing Comments Began education and provided demo re: use of bench assembly inspector, sock aid and long shoe horn. Pt has bench assembly inspector and long bath sponge; provided sock aid and long shoe horn at pt request. OT ADL-Toileting General Evaluation Areas Needing Assistance Empty Catheter or Colostomy Comments OT Toileting Comments schuler still in place OT ADL-Bathing General Evaluation Bathing Ability Moderate Assistance Devices Bathing Equipment Rinse Free Shampoo Cap Comments OT Bathing Comments Pt mod assist to place and use shampoo cap due to increased back pain when reaching above shoulder height. M6 OT- IP Functional Cognition Start: 01/26/18 11:48 Freq: Status: Active Protocol: Document 02/01/18 10:41 PJM (Rec: 02/01/18 16:38 [facility] [id number]) Cognitive Factors Limiting Selfcare Function Cognitive Ability Level of Alertness Drowsy Patient Orientation Name Month Year Place Attention Span Ability Capable of Focused Attention Ability to Follow Commands Able to Follow One Step Commands Safety Awareness Decreased Recall of Precautions Underestimates Need for Assistance Problem Solving Ability Needs Assist to Identify Solutions Executive Function Ability Unable to Remember Details Cognitive Comments Cognitive Assessment Comments Pt drowsy from pain meds with significantly slowed speed of processing and flat affect noted. Discussed with RN. M9 OT- IP Assessment and Plan Freq: Status: Active Protocol: Document 02/01/18 10:41 PJM (Rec: 02/01/18 16:38 [facility] [id number]) OT Summary Assessment and Plan Potential Rehabilitation Potential Good Summary OT Impairments Pain Functional Cognition Functional Mobility Grooming Dressing Toileting Bathing Toilet Transfers Shower Transfers Progress Towards Goals Slow Progress due to Pain Slow Progress due to Activity Tolerance Slow Progress due to Cognition Assessment Summary Pt drowsy from pain meds and pain limiting ability to participate this session. Pt performing grooming tasks slowly in bed. Pt currently waiting for new custom TLSO brace in order to further progress with mobility. Pt is far below her baseline level of function, as she normally lives alone and is indep with self care, IADLS. Pt will need further instruction and practice re: adapted ADL techniques and all functional mobility in SNF setting prior to returning home. Goals Grooming Goal Minimal Assistance Dressing Goal Minimal Assistance Toileting Goal Minimal Assistance Bathing Goal Minimal Assistance Toilet Transfer Goal Minimal Assistance Patient/Caregiver Education Goal Demonstrate Post-Op Precautions Days to Meet Goals 5 Frequency of Treatment Frequency Of Treatment Once a Day Treatment Plan OT Treatment Plan ADL Training Functional Cognition Training Functional Mobility Patient/Family Education Discharge Planning Other Treatment Recommendations and Next up with brace Treatment Focus Discharge Recommendations OT Discharge Recommendations SNF Rehab Home Equipment Needs to be determined in next rehab setting, sock aid and long shoe horn provided
--- NOTE | 2018-02-01 11:09 | CM.DPC ---
Spoke with Isha @katie today about the SNF auth to [facility]. She stated it has cancelled and [facility] needs to submit it again. I called [facility] and left a message on Katie's VM instructing her to do so.
--- NOTE | 2018-02-01 11:49 | PT.IPTN ---
Current Diagnoses Other osteoporosis with current pathological fracture, vertebra(e), initial encounter for fracture (01/26/18) Age-related osteoporosis without current pathological fracture (01/26/18) Other fracture of first lumbar vertebra, initial encounter for closed fracture (01/26/18) Physical Therapy Treatment Note M3 PT-IP Subjective Start: 01/25/18 08:19 Freq: Status: Active Protocol: Document 02/01/18 11:48 AB (Rec: 02/01/18 11:49 AB [id number]) Subjective Physical Therapy Visit Type Notes pt was fitted with custom back brace yesterday and burglar alarm mechanic will come in this afternoon with the brace. per doctor's order, pt on bedrest until pt has new brace.
--- NOTE | 2018-02-01 14:24 | PC.NURSE ---
Day shift: Ramila care performed by AMAN and this technical writer was called in to room and shown some otero vaginal discharge from Milian area. There is also an off odor present as well. Dr Castaneda RN notified at this time. Will continue to monitor. New back brace in place. part time receptionist when OOB and PRN for pain.
--- NOTE | 2018-02-01 15:46 | CM.DPC ---
Spoke with nurse Babcock who stated that patient did receive brace this afternoon and it was fitted without problem, but patient had been heavily medicated prior to this fitting. She is now sleeping soundly. He is unsure if she is stable enough to d/c to [facility] tomorrow. Plan: Follow closely. Will need non-urgent BLS set up for transfer to , but must check with Katie at [facility] to ensure that the insurance auth is again reinstated for patient to be d/c to them (took too long and auth ; Katie checking to be sure it is reinstated. No call back from her at end of day on 02/01. She stated she will call when auth is received for sure.)
--- NOTE | 2018-02-01 16:21 | PT.IPTN ---
Current Diagnoses Other osteoporosis with current pathological fracture, vertebra(e), initial encounter for fracture (01/26/18) Age-related osteoporosis without current pathological fracture (01/26/18) Other fracture of first lumbar vertebra, initial encounter for closed fracture (01/26/18) Physical Therapy Treatment Note M2 PT-IP Current Condition Start: 01/25/18 08:19 Freq: Status: Active Protocol: Document 01/25/18 15:21 IJS (Rec: 01/25/18 15:26 IJ [id number]) Physical Therapy Current Condition Current Condition Evaluation Date 01/25/18 Treatment Diagnosis L1 fracture, impaired mobility Onset Date 01/23/18 Precautions Lumbar Precautions Log Roll No Twisting Limit Bending Other Precautions Brace to be worn when upright and ambulating, ok to take off for hygene. Weight Bearing Status Weight Bearing Status Weight Bear as Tolerated M3 PT-IP Subjective Start: 01/25/18 08:19 Freq: Status: Active Protocol: Document 02/01/18 16:13 AB (Rec: 02/01/18 16:21 AB [id number]) Subjective Physical Therapy Visit Type Type Treatment Note Visit Start Time 13:52 Visit Stop Time 14:52 Total Visit Minutes 60 Number of ONSITE CASE MANAGER Visits 0 Therapy Pain Assessment Pain When Pain Assessed At Rest Pain Present Pain Present Pain Reported Location Bilateral Shoulder Intensity 5 Scale Used Numeric (1 - 10) Pain Behaviors Guarding M4 PT-IP Mobility and Gait Start: 01/25/18 08:19 Freq: Status: Active Protocol: Document 02/01/18 16:13 AB (Rec: 02/01/18 16:21 AB [id number]) PT-Bed Mobility Assessment Rolling Type of Rolling Bilateral Level of Assist Maximal Assistance 1 Person Assistance 2 Person Assistance Supine to Sit Supine to Sit Maximum Assistance 2 Person Assistance Bedrails Scooting Scooting to Edge of Bed Maximum Assistance PT-Transfer Assessment Sit to and From Stand Sit to and from Stand Maximum Assistance 1 Person Assistance Equipment Transfer Assistive Device Gait Belt Front Wheeled Walker Transfers Transfer Destination Bed Transfer Technique Stand Step Pivot Transfer Ability Level of Assist Maximum Assistance 1 Person Assistance Use of Upper Extremities Comments Mobility Comments mortgage loan coordinator from [employer] present and fitted pt with clamshell TLSO brace. assisted pt with donning of TLSO. NAC present to do hygiene care and pt required max A for log roll and max cues with all tasks. pt seems drowsy and inconsistent with following directions. M5 PT-IP Objective Assessments Start: 01/25/18 08:19 Freq: Status: Active Protocol: Document 01/25/18 08:22 RS (Rec: 01/25/18 08:44 RS [id number]) Orientation Orientation/Cognition Level of Alertness Alert Orientation Name Age Birthday Month Date Year Day of Week Place Situation Language Function Ability No Deficits Noted Safety Awareness Understands Safety Issues Memory Description No Deficits Noted Gross Range of Motion Upper Extremity ROM Assessment Within Functional Limits Lower Extremity ROM Impairments likely WFL structurally but limited by pain Strength Upper Extremity Strength Assessment Within Functional Limits Comments Strength Comments limited due to pain M6 PT-IP Treatment Start: 01/25/18 08:19 Freq: Status: Active Protocol: Document 02/01/18 16:13 AB (Rec: 02/01/18 16:21 AB [id number]) Physical Therapy Treatment Education Education Provided Precautions Weight Bearing Status Post-Op Packet Safety Brace Education Donning Kirkman Patient Equipment Issued Equipment Type and Company [employer]: Diane: proviced pt with clamshell custom made TLSO brace for pt 02/01/18. Other Treatments Other Treatment Performed Assisted mortgage loan coordinator with postioning and mobilizing pt for proper orthotic fitting. M7 PT-IP Assessment and Plan Start: 01/25/18 08:19 Freq: Status: Active Protocol: Document 02/01/18 16:13 AB (Rec: 02/01/18 16:21 AB [id number]) PT Summary Assessment and Plan Potential Rehabilitation Potential Fair Summary Impairments Pain ROM Strength Balance Coordination Sensation Tone Cognition Bed Mobility Transfers Gait Activity Tolerance Progress Towards Goals Slow Progress due to Pain Slow Progress due to Activity Tolerance Assessment Summary pt continues to require mod to max A with mobility with increase assistance needed for bed mobility supine to sit to 2 person assist with max cues . pt will require SNF rehab to improve function. Goals Bed Mobility Goal Minimal Assistance Transfer Goal Contact Guard Assistance Front Wheeled Walker Gait Goal Contact Guard Assistance Front Wheel Walker Gait Distance 50 Days to Meet Goals 3 Frequency of Treatment Frequency Of Treatment Twice a Day Treatment Plan Physical Therapy Treatment Plan Bed Mobility Training Transfer Training Gait Training Therapeutic Exercise Balance Retraining Post Op Education Discharge Planning Hot or Cold Pack Neuromuscular Re-ed Coordination Retraining Manual Therapy Recommendations To Nursing Amount of Assist Needed 2 Person Assist Discharge Recommendations PT Discharge Recommendations SNF Rehab
[2018-02-01] MEDS: SENNOSIDES 8.6 MG TABLET 17.2 MG PO (20:44)
[2018-02-01 23:28] LABS: Appearance Urine UA CLEAR; Bilirubin Urine UA NEGATIVE (NEGATIVE); Color Urine UA YELLOW; Glucose Urine UA NEGATIVE (Normal); Ketones Urine UA NEGATIVE (NEGATIVE); Leukocyte Esterase Urine UA 1+ (NEGATIVE); Nitrite Urine UA POSITIVE (Negative); Occult Blood Urine UA 2+ (Negative); Protein Urine UA 1+ (Negative); Urobilinogen Urine UA 0.2 E.U./dL (0.2); pH Urine UA 5.5 (4.5-8.0)
[2018-02-01 23:38] LABS: Bacteria Urine Many (>30); Culture Indicated Urine Specimen Cultured; RBC Urine 1-5/HPF (0-5/HPF); WBC Urine 10-30/HPF (0-5/HPF)
[2018-02-02] VITALS (9 sets, daily range): BP systolic 107–147; BP diastolic 50–80; PULSE 73–93; RESP 16–20; TEMP 36.6–37; O2SAT 91–98
[2018-02-02] MEDS: OXYCODONE IR 10 MG TABLET PO ×5 (00:01→19:05)
[2018-02-02] MEDS: PANTOPRAZOLE 20 MG TABLET PO (05:49)
[2018-02-02] MEDS: diazePAM 2 MG TABLET PO (08:02)
[2018-02-02] MEDS: FERROUS SULFATE 325 MG TABLET PO ×2 (08:07→21:25)
[2018-02-02] MEDS: AMLODIPINE 5 MG TABLET 10 MG PO (08:07)
[2018-02-02] MEDS: DOCUSATE 100 MG CAPSULE PO ×2 (08:07→21:24)
[2018-02-02] MEDS: METOPROLOL 50 MG TABLET PO ×2 (08:07→21:24)
[2018-02-02] MEDS: GABAPENTIN 600 MG TABLET PO ×2 (08:07→21:24)
[2018-02-02] MEDS: POLYETHYLENE GLYCOL 3350 17 GM POWD.PACK PO (08:07)
[2018-02-02] MEDS: ENOXAPARIN 40 MG/0.4 ML SYRINGE SUBCUT (08:08)
[2018-02-02] MEDS: CALCITONIN,SALMON, NASAL SPRAY 1 SPRAYS NASAL (08:08)
--- NOTE | 2018-02-02 08:24 | PM.PN.1 ---
Subjective Date Patient Seen: 02/02/18 Time Patient Seen: 08:24 Interval history: Hospital day 8. Patient with an L1 compression fracture. A new clamshell back brace was fitted for yesterday for her. Patient states pain is tolerable with pain medication. Pain is located in the back area only and not radiate down the legs. Awaiting transfer to [facility] when medically stable. Exam Vital Signs (past 8 hours): - 02/02/18 00:25 02/02/18 04:36 Temperature 98.6 F 98.2 F Pulse Rate 73 76 Respiratory Rate 18 18 Blood Pressure 134/80 H 146/80 H Pulse Oximetry 95 93 Fraction of Inspired Oxygen 21 Oxygen Delivery Method Nasal Cannula Oxygen Flow Rate 2 Narrative Exam Narrative: Patient in bed. Alert and orient x3. Bilateral calves soft and nontender. 5/5 ankle strength bilaterally. Neurovascular status intact. Objective Labs Result Diagrams: 01/25/18 02:02 01/25/18 02:02 Labs: Laboratory Results - last 24 hr 02/01/18 22:52 Urine Color Yellow Urine Appearance Clear Urine pH 5.5 Ur Specific [place] 1.020 Urine Protein 1+ H Urine Glucose (UA) Negative Urine Ketones Negative Urine Occult Blood 2+ H Urine Nitrate Positive H Urine Bilirubin Negative Urine Urobilinogen 0.2 Ur Leukocyte Esterase 1+ H Urine RBC 1-5/hpf Urine WBC 10-30/hpf H Urine Bacteria Many (>30) H Ur Culture Indicated? Specimen cultured Micro UA Comment Not Reportable Assessment & Plan Plan: Assessment/Plan Narrative: L1 compression fracture. Continue back brace. Continue pain medication as needed. Transferred to [facility] in medically stable by the hospitalist service. Quality VTE Deep Vein Thrombosis/Pulmonary Embolism Present on Admission: No
--- NOTE | 2018-02-02 08:41 | PM.PN.1 ---
Subjective Date Patient Seen: 02/02/18 Time Patient Seen: 08:41 Interval history: Patient is about the same as yesterday. It does seem like the new brace fits better anyway. Too early to tell if it is really providing improvement in pain control Patient does report her pain is mostly tolerable with pain medication. She seems a little bit spacey this morning so I think we have at least in the last few hours stacked up on her pain medicine. She also received a dose of diazepam prior to my seeing her which is probably contributing. Patient does have a high tolerance for the opiates given her long-term exposure and chronic use of same. Still to disabled really for me to even consider removal of her Milian catheter etc Exam Vital Signs (past 8 hours): - 02/02/18 04:36 02/02/18 08:29 Temperature 98.2 F Pulse Rate 76 Respiratory Rate 18 Blood Pressure 146/80 H Pulse Oximetry 93 93 Fraction of Inspired Oxygen 21 Oxygen Delivery Method Room Air Oxygen Flow Rate 0 Narrative Exam Narrative: Unchanged Objective Labs Result Diagrams: 01/25/18 02:02 01/25/18 02:02 Labs: Laboratory Results - last 24 hr 02/01/18 22:52 Urine Color Yellow Urine Appearance Clear Urine pH 5.5 Ur Specific [place] 1.020 Urine Protein 1+ H Urine Glucose (UA) Negative Urine Ketones Negative Urine Occult Blood 2+ H Urine Nitrate Positive H Urine Bilirubin Negative Urine Urobilinogen 0.2 Ur Leukocyte Esterase 1+ H Urine RBC 1-5/hpf Urine WBC 10-30/hpf H Urine Bacteria Many (>30) H Ur Culture Indicated? Specimen cultured Micro UA Comment Not Reportable Assessment & Plan Plan: Assessment/Plan Narrative: 1. Lumbar compression fracture-does seem to be slowly improving. Continue with scheduled dose oxycodone plus the as needed dosing. Hopefully the better fitting brace will provide more support with less skin breakdown other issues that will allow her to improve more quickly. At this point her pain level does seem to be improved and I would classify it as tolerable. Therefore I would anticipate her being able to be discharged to longterm likely tomorrow, February 03 2. Hypertension-numbers continue be improved. No change in meds 3. GI-no issue with bowels at this time. Continue with current laxatives and/or stool softeners and bowel meds. 4. Disposition-to longterm, likely able to be discharged tomorrow unless there is some medical set back during the course of the day today. I would make plans for her to be discharged to [facility] tomorrow the 03 of February. Note: Greater than 30 minutes was spent evaluating the patient on the floor, including examining the patient, discussing clinical course with clinical and nursing staff, reviewing clinical course in the computer, preparing documentation and writing orders for continued management of care, discussing status with family as appropriate, reviewing plans for the next 24 hours with both patient/family and nursing staff as appropriate. Time Spent With Patient Time with patient: 25 - 35 minutes Quality VTE Deep Vein Thrombosis/Pulmonary Embolism Present on Admission: No
--- NOTE | 2018-02-02 08:44 | P.PN_ITS ---
Subjective Date Patient Seen: 02/02/18 Time Patient Seen: 08:41 Interval history: Patient is about the same as yesterday. It does seem like the new brace fits better anyway. Too early to tell if it is really providing improvement in pain control Patient does report her pain is mostly tolerable with pain medication. She seems a little bit spacey this morning so I think we have at least in the last few hours stacked up on her pain medicine. She also received a dose of diazepam prior to my seeing her which is probably contributing. Patient does have a high tolerance for the opiates given her long-term exposure and chronic use of same. Still to disabled really for me to even consider removal of her Milian catheter etc Exam Vital Signs (past 8 hours): - 02/02/18 04:36 02/02/18 08:29 Temperature 98.2 F Pulse Rate 76 Respiratory Rate 18 Blood Pressure 146/80 H Pulse Oximetry 93 93 Fraction of Inspired Oxygen 21 Oxygen Delivery Method Room Air Oxygen Flow Rate 0 Narrative Exam Narrative: Unchanged Objective Labs Result Diagrams: 01/25/18 02:02 01/25/18 02:02 Labs: Laboratory Results - last 24 hr 02/01/18 22:52 Urine Color Yellow Urine Appearance Clear Urine pH 5.5 Ur Specific [place] 1.020 Urine Protein 1+ H Urine Glucose (UA) Negative Urine Ketones Negative Urine Occult Blood 2+ H Urine Nitrate Positive H Urine Bilirubin Negative Urine Urobilinogen 0.2 Ur Leukocyte Esterase 1+ H Urine RBC 1-5/hpf Urine WBC 10-30/hpf H Urine Bacteria Many (>30) H Ur Culture Indicated? Specimen cultured Micro UA Comment Not Reportable Assessment & Plan Plan: Assessment/Plan Narrative: 1. Lumbar compression fracture-does seem to be slowly improving. Continue with scheduled dose oxycodone plus the as needed dosing. Hopefully the better fitting brace will provide more support with less skin breakdown other issues that will allow her to improve more quickly. At this point her pain level does seem to be improved and I would classify it as tolerable. Therefore I would anticipate her being able to be discharged to retirement likely tomorrow, February 03 2. Hypertension-numbers continue be improved. No change in meds 3. GI-no issue with bowels at this time. Continue with current laxatives and/ or stool softeners and bowel meds. 4. Disposition-to retirement, likely able to be discharged tomorrow unless there is some medical set back during the course of the day today. I would make plans for her to be discharged to [facility] tomorrow the 03 of February. Note: Greater than 30 minutes was spent evaluating the patient on the floor, including examining the patient, discussing clinical course with clinical and nursing staff, reviewing clinical course in the computer, preparing documentation and writing orders for continued management of care, discussing status with family as appropriate, reviewing plans for the next 24 hours with both patient/family and nursing staff as appropriate. Time Spent With Patient Time with patient: 25 - 35 minutes Quality VTE Deep Vein Thrombosis/Pulmonary Embolism Present on Admission: No
--- NOTE | 2018-02-02 11:19 | CM.DPC ---
DCP Continued: Spoke to Katie at [facility], will accept patient when she is ready for discharge. Was awaiting approval for [facility] which was approved. Savannah Barker RN/Financial Coordinator
--- NOTE | 2018-02-02 11:51 | PT.IPTN ---
Current Diagnoses Other osteoporosis with current pathological fracture, vertebra(e), initial encounter for fracture (01/26/18) Age-related osteoporosis without current pathological fracture (01/26/18) Other fracture of first lumbar vertebra, initial encounter for closed fracture (01/26/18) Physical Therapy Treatment Note M2 PT-IP Current Condition Start: 01/25/18 08:19 Freq: Status: Active Protocol: Document 01/25/18 15:21 IJS (Rec: 01/25/18 15:26 IJS [id number]) Physical Therapy Current Condition Current Condition Evaluation Date 01/25/18 Treatment Diagnosis L1 fracture, impaired mobility Onset Date 01/23/18 Precautions Lumbar Precautions Log Roll No Twisting Limit Bending Other Precautions Brace to be worn when upright and ambulating, ok to take off for hygene. Weight Bearing Status Weight Bearing Status Weight Bear as Tolerated M3 PT-IP Subjective Start: 01/25/18 08:19 Freq: Status: Active Protocol: Document 02/02/18 11:43 AB (Rec: 02/02/18 11:50 AB [email or web address]) Subjective Physical Therapy Visit Type Type Treatment Note Visit Start Time 11:00 Visit Stop Time 11:40 Total Visit Minutes 40 Number of CONDUCTOR SLEEPING CAR Visits 0 Physical Therapy Visit Comments Patient Comments pt agreed to get up Therapy Pain Assessment Pain When Pain Assessed At Rest Pain Present Pain Present Pain Reported Location Bilateral Shoulder Intensity 2 Bilateral Lower Back Intensity 2 Scale Used Numeric (1 - 10) Pain Behaviors Guarding Pain Management Techniques Distraction Re-positioning Timing of Activity with Medications M4 PT-IP Mobility and Gait Start: 01/25/18 08:19 Freq: Status: Active Protocol: Document 02/02/18 11:43 AB (Rec: 02/02/18 11:50 AB [email or web address]) PT-Bed Mobility Assessment Rolling Type of Rolling Log Rolling Bilateral Level of Assist Maximal Assistance 1 Person Assistance 2 Person Assistance Supine to Sit Supine to Sit Maximum Assistance 1 Person Assistance 2 Person Assistance Bedrails PT-Transfer Assessment Sit to and From Stand Sit to and from Stand Maximum Assistance 1 Person Assistance Comments Mobility Comments assisted pt with donning of TLSO brace. NAC and nurse presnt. pt was able to maintain standing using FWW for support mod A while NAC assisted with hygiene care and brief management. Gait Assessment Gait Gait Assistance Required: Moderate Assistance Maximum Assistance Distance (Feet) (feet) 7 Able to Maintain Weight Bearing Status Yes During Gait Assistive Devices Assistive Device Gait Belt Front Wheeled Walker Orthotic/Prosthetic Devices or Brace: Yes Gait Deviations General Gait Pattern Antalgic Decreased Stride Length Decreased Feet Clearance Step-to Gait Factors Limiting Gait Function Factors Limiting Gait Function Decreased Activity Tolerance Decreased Strength Difficulty Following Directions Pain Poor Balance Poor Safety Awareness M5 PT-IP Objective Assessments Start: 01/25/18 08:19 Freq: Status: Active Protocol: Document 01/25/18 08:22 RS (Rec: 01/25/18 08:44 RS [id number]) Orientation Orientation/Cognition Level of Alertness Alert Orientation Name Age Birthday Month Date Year Day of Week Place Situation Language Function Ability No Deficits Noted Safety Awareness Understands Safety Issues Memory Description No Deficits Noted Gross Range of Motion Upper Extremity ROM Assessment Within Functional Limits Lower Extremity ROM Impairments likely WFL structurally but limited by pain Strength Upper Extremity Strength Assessment Within Functional Limits Comments Strength Comments limited due to pain M6 PT-IP Treatment Start: 01/25/18 08:19 Freq: Status: Active Protocol: Document 02/02/18 11:43 AB (Rec: 02/02/18 11:50 AB [email or web address]) Physical Therapy Treatment Education Education Provided Precautions Safety Equipment Issued Equipment Type and Company pt has clamshell TLSO brace from [employer] M7 PT-IP Assessment and Plan Start: 01/25/18 08:19 Freq: Status: Active Protocol: Document 02/02/18 11:43 AB (Rec: 02/02/18 11:50 AB [email or web address]) PT Summary Assessment and Plan Potential Rehabilitation Potential Fair Summary Impairments Pain ROM Strength Balance Coordination Sensation Tone Cognition Bed Mobility Transfers Gait Activity Tolerance Progress Towards Goals Slow Progress due to Pain Slow Progress due to Activity Tolerance Assessment Summary pt continues to require 1-2 person max A with mobility and with decrease activity tolerance. pt will require SNF rehab to improve mobility and function. Goals Bed Mobility Goal Minimal Assistance Transfer Goal Contact Guard Assistance Front Wheeled Walker Gait Goal Contact Guard Assistance Front Wheel Walker Gait Distance 50 Days to Meet Goals 3 Frequency of Treatment Frequency Of Treatment Twice a Day Recommendations To Nursing Amount of Assist Needed 2 Person Assist Discharge Recommendations PT Discharge Recommendations SNF Rehab
--- NOTE | 2018-02-02 15:31 | PT.IPTN ---
Current Diagnoses Other osteoporosis with current pathological fracture, vertebra(e), initial encounter for fracture (01/26/18) Age-related osteoporosis without current pathological fracture (01/26/18) Other fracture of first lumbar vertebra, initial encounter for closed fracture (01/26/18) Physical Therapy Treatment Note M2 PT-IP Current Condition Start: 01/25/18 08:19 Freq: Status: Active Protocol: Document 01/25/18 15:21 IJS (Rec: 01/25/18 15:26 IJ [id number]) Physical Therapy Current Condition Current Condition Evaluation Date 01/25/18 Treatment Diagnosis L1 fracture, impaired mobility Onset Date 01/23/18 Precautions Lumbar Precautions Log Roll No Twisting Limit Bending Other Precautions Brace to be worn when upright and ambulating, ok to take off for hygene. Weight Bearing Status Weight Bearing Status Weight Bear as Tolerated M3 PT-IP Subjective Start: 01/25/18 08:19 Freq: Status: Active Protocol: Document 02/02/18 15:25 GGD (Rec: 02/02/18 15:31 GGD [id number]) Subjective Physical Therapy Visit Type Type Treatment Note Visit Start Time 15:00 Visit Stop Time 15:25 Total Visit Minutes 25 Number of ZOOLOGY TEACHER Visits 1 Physical Therapy Visit Comments Patient Comments Pt ready to go back to bed. Therapy Pain Assessment Pain When Pain Assessed At Rest Pain Present Pain Present Pain Reported Location Bilateral Lower Back Intensity 6 Scale Used Numeric (1 - 10) M4 PT-IP Mobility and Gait Start: 01/25/18 08:19 Freq: Status: Active Protocol: Document 02/02/18 15:25 GGD (Rec: 02/02/18 15:31 GGD [id number]) PT-Bed Mobility Assessment Rolling Type of Rolling Log Rolling Bilateral Level of Assist Maximal Assistance 2 Person Assistance Sit to Supine Sit to Supine Moderate Assistance 1 Person Assistance Bedrails Scooting Scooting to Edge of Bed Moderate Assistance PT-Transfer Assessment Sit to and From Stand Sit to and from Stand Minimal Assistance 1 Person Assistance Use of Upper Extremities Equipment Transfer Assistive Device Gait Belt Front Wheeled Walker Transfers Transfer Destination Bed Gait Assessment Gait Gait Assistance Required: Moderate Assistance 1 Person Assist Distance (Feet) (feet) 5 Assistive Devices Assistive Device Gait Belt Front Wheeled Walker Orthotic/Prosthetic Devices or Brace: Yes Gait Deviations General Gait Pattern Antalgic Decreased Stride Length Decreased Feet Clearance Step-to Gait Factors Limiting Gait Function Factors Limiting Gait Function Decreased Activity Tolerance Decreased Strength Difficulty Following Directions Pain Poor Balance Poor Safety Awareness M5 PT-IP Objective Assessments Start: 01/25/18 08:19 Freq: Status: Active Protocol: Document 01/25/18 08:22 RS (Rec: 01/25/18 08:44 RS [id number]) Orientation Orientation/Cognition Level of Alertness Alert Orientation Name Age Birthday Month Date Year Day of Week Place Situation Language Function Ability No Deficits Noted Safety Awareness Understands Safety Issues Memory Description No Deficits Noted Gross Range of Motion Upper Extremity ROM Assessment Within Functional Limits Lower Extremity ROM Impairments likely WFL structurally but limited by pain Strength Upper Extremity Strength Assessment Within Functional Limits Comments Strength Comments limited due to pain M6 PT-IP Treatment Start: 01/25/18 08:19 Freq: Status: Active Protocol: Document 02/02/18 11:43 AB (Rec: 02/02/18 11:50 AB [email or web address]) Physical Therapy Treatment Education Education Provided Precautions Safety Equipment Issued Equipment Type and Company pt has mickey VELAZQUEZ brace from [employer] [id number] PT-IP Assessment and Plan Start: 01/25/18 08:19 Freq: Status: Active Protocol: Document 02/02/18 15:25 GGD (Rec: 02/02/18 15:31 GGD [id number]) PT Summary Assessment and Plan Summary Assessment Summary Pt needs mod to max a with mobility. She is very slow moving. Frequency of Treatment Frequency Of Treatment Twice a Day Treatment Plan Physical Therapy Treatment Plan Bed Mobility Training Transfer Training Gait Training Therapeutic Exercise Balance Retraining Post Op Education Discharge Planning Hot or Cold Pack Neuromuscular Re-ed Coordination Retraining Manual Therapy Recommendations To Nursing Amount of Assist Needed 2 Person Assist Discharge Recommendations PT Discharge Recommendations SNF Rehab
[2018-02-02] MEDS: SENNOSIDES 8.6 MG TABLET 17.2 MG PO (21:24)
[2018-02-02] MEDS: OXYCODONE IR 5 MG TABLET PO (21:24)
[2018-02-03 00:24] VITALS: BP 142/79; PULSE 69; RESP 16; TEMP 36.6; O2SAT 96
[2018-02-03] MEDS: OXYCODONE IR 10 MG TABLET PO ×3 (01:00→10:06)
[2018-02-03 02:59] VITALS: O2SAT 98
[2018-02-03] MEDS: PANTOPRAZOLE 20 MG TABLET PO (07:10)
--- NOTE | 2018-02-03 08:35 | PM.DS.1 ---
History of Present Illness Date Patient Seen: 02/03/18 Time Patient Seen: 08:35 Chief complaint: Closed L1 vertebral fracture, hypertension Narrative: 77-year-old female with longstanding history of significant back issues including severe scoliosis. Apparently had rather gradual onset of severe back pain 2-3 days prior to presentation to the [facility] Emergency Department because of her severe pain. Patient lives independently and was basically unable to get up at a better do anything because of severe pain. She was experiencing significant spasming type sensations in her lower back as well. Denies any difficulty a bowel or bladder function. Because the pain could not ambulate and could not really tell about any further weakness in her lower extremities etc. The location of her pain seems to be in the middle of her back at about waist level she says. Does not radiate across or upper down her legs. Workup in the ED seems to show a new L1 compression fracture although difficult to see (per Radiology). Patient was unable to have her pain managed sufficient to allow her to return to her independent living situation therefore she was admitted for further evaluation. Orthopedic surgery also plans to see patient in the hospital see if any intervention might be helpful. {from Dr. Castaneda's history and physical January 25, 2018} Discharge Providers Date of admission: 01/26/18 10:42 Primary care physician: Charles Casatneda MD Consults: 01/25/18 08:13 Consult to Physical Therapy Evaluate & Treat Comment: Physician Instructions: Evaluate and Treat 01/25/18 09:38 Consult to Discharge Planning Routine Comment: Consult to Physical Therapy Evaluate & Treat Comment: Physician Instructions: Evaluate and Treat Consult to Physician Routine Comment: Consulting Provider: Marce Lynn Reason for consultation: back pain/compression fx Has provider been notified: Yes 01/25/18 11:10 Consult to Pastoral Services Routine Comment: per patient request 01/25/18 13:30 Consult to Physical Therapy Evaluate & Treat Comment: Physician Instructions: [facility] TO PROVIDE CUSTOM TLSO BACK BRACE 01/26/18 07:57 Consult to Physical Therapy Evaluate & Treat Comment: use brace when OOB, ambulate in [place]opez Physician Instructions: Evaluate and Treat 01/26/18 09:14 Consult to Occupational Therapy Evaluate & Treat Comment: Physician Instructions: Evaluate and treat Discharge provider: Charles Castaneda MD Discharge Date: 02/03/18 Summary Discharge Diagnosis: 1. Acute lumbar compression fracture likely secondary to osteoporosis 2. Severe hypertension, improved upon discharge 3. History GI bleed with Sergey's lesions 4. History iron deficiency anemia due to 3. Above, not present this admission 5. Idiopathic scoliosis 6. Chronic back pain on chronic opiate narcotics 7. 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 Osteoporosis 9. Urinary tract infection, more likely than not catheter induced, growing E coli and Proteus mirabilis Hospital Course: Patient was admitted via the ED with severe pain unable to walk and severe hypertension. She was evaluated felt to have a new acute L1 compression fracture. She was seen in consultation by Orthopedic surgery who felt as though she required some external support and an external brace was prescribed an applied. This was very ill fitting and was eventually changed for more custom brace which was much better fitting and provided support. Patient had a tremendous amount of pain perhaps in part due to her chronic use of opiate narcotics which of course has raised her tolerance for these medications. With scheduled doses of oxycodone as well as intermittent as needed doses she was able to be slowly ambulated. She was also given Miacalcin nasal spray to see if that would help reduce the pain and speed up her recovery. That did not seem to have a great effect. Patient was seen by physical therapy and occupational therapy on a daily basis. She showed very slow but steady improvement. She showed no evidence of further complication of her fracture either neurologic we or otherwise. By the 03 of February she was felt to be stable for discharge to longterm to continue her recovery and rehabilitation as her healing continued She had a Milian catheter placed because of her severe immobility and that was left in place upon discharge can be removed when her mobility increases. She did show evidence of probable UTI with a change in the appearance of her urine. Culture did grow E coli and Proteus mirabilis and she will be started on antibiotic therapy which will be continued in the longterm facility Patient was quite severely hypertensive upon admission likely secondary to pain. She had her antihypertensive regimen significantly increased over her usual home medication. Eventually with better pain control and this additional medication her blood pressure came down and was very much acceptable prior to discharge Patient does have a history of intermittent GI bleeding with was felt to be probable Sergey lesions in the upper GI tract as per Gastroenterology. Because of this she has been chronically iron deficient. Neither of these conditions are felt to be present during this hospitalization and she was entirely stable in this regard Status at Discharge Cognitive/behavioral status at discharge: Normal Functional status at discharge: uses cane/walker Overall status at discharge: patient is progressing back to baseline Time Spent with Patient Greater than 30 minutes Exam Vital Signs (past 8 hours): - 02/03/18 02:59 Pulse Oximetry 98 Fraction of Inspired Oxygen 21 Oxygen Delivery Method Room Air Oxygen Flow Rate 0 Narrative Exam Narrative: Elderly female sitting up in bed with a brace in place not able to move much. HEENT-unremarkable, normocephalic atraumatic Neck-no lymphadenopathy no bruits Lungs-clear anteriorly and posteriorly no wheezes no crackles good breath sounds Heart-regular rate and rhythm no murmur rub or gallop normal S1-S2 Abdomen-positive bowel tones soft nontender nondistended no hepatosplenomegaly no masses palpable Neuro-normal to screening exam, gait not tested Extremities-no cyanosis clubbing or edema Objective Labs Result Diagrams: 01/25/18 02:02 01/25/18 02:02 Discharge Plan Discharge Plan Patient Disposition: SNF Transfer to: [facility] Under care of provider: Adrian Physician Transportation: Cabulance Consult as needed: Dental, Hearing, Mental health, Podiatry and Vision I certify the postop hospital longterm care is medically necessary on a continuing basis for any conditions for which he/ she received care during this hospitalization.: Yes The receiving facility has agreed to accept transfer and provide medical treatment.: Yes Discharge Health Status Brief summary of current health status: compression fx L1, severe pain, slowly improving Multidrug resistant organism: No MDRO Precautions: [place] Provider Discharge Instructions Diet: Diet as Tolerated and Regular Liquid consistency: Normal/Thin Food texture: Regular Activity: per physical therapy Catheter: 2-way Milian Catheter comment: remove when mobility improves Special Rehabilitation Services Reason for rehabilitation: Other Rehab type: Physical therapy and Occupational therapy Restrictions to mobility: pain, per physical therapy Discharge Data Primary Care Provider: Charles Castaneda Attending Provider: Charles Castaneda Admit Date/Time: 01/26/18 10:42 Quality VTE Deep Vein Thrombosis/Pulmonary Embolism Present on Admission: No
[2018-02-03] MEDS: ENOXAPARIN 40 MG/0.4 ML SYRINGE SUBCUT (09:16)
[2018-02-03] MEDS: METOPROLOL 50 MG TABLET PO (09:16)
[2018-02-03] MEDS: CALCITONIN,SALMON, NASAL SPRAY 1 SPRAYS NASAL (09:16)
[2018-02-03] MEDS: AMLODIPINE 5 MG TABLET 10 MG PO (09:17)
[2018-02-03] MEDS: GABAPENTIN 600 MG TABLET PO (09:17)
[2018-02-03] MEDS: DOCUSATE 100 MG CAPSULE PO (09:17)
[2018-02-03] MEDS: FERROUS SULFATE 325 MG TABLET PO (09:17)
[2018-02-03 09:25] VITALS: BP 141/70; PULSE 87; RESP 16; TEMP 36.7; O2SAT 96
[2018-02-03] MEDS: MAGNESIUM HYDROXIDE 30 ML UDC PO (10:05)
[2018-02-03] MEDS: levoFLOXacin 250 MG TABLET PO (10:05)
--- NOTE | 2018-02-03 10:21 | PM.PN.1 ---
Subjective Date Patient Seen: 02/03/18 Time Patient Seen: 10:00 Interval history: Patient seen at bedside for nonsurgical compression fracture of the spine. She is doing better, her pain is well controlled and she is ready for discharge to a subacute rehab facility today. Exam Vital Signs (past 8 hours): - 02/03/18 02:59 02/03/18 09:25 Temperature 98.0 F Pulse Rate 87 Respiratory Rate 16 Blood Pressure 141/70 H Pulse Oximetry 98 96 Fraction of Inspired Oxygen 21 Oxygen Delivery Method Room Air Oxygen Flow Rate 0 Narrative Exam Narrative: The patient is well-developed well-nourished in no acute distress. Patient is alert and oriented x3. On examination patient is resting comfortably in bed with custom brace well fitting. She is NVI in her upper and lower extremities with full ROM. Objective Labs Result Diagrams: 01/25/18 02:02 01/25/18 02:02 Assessment & Plan Plan: Assessment/Plan Narrative: Patient will continue discharge per medicine's recommendations. She should follow up with the office in 10-14 days for x-rays and examination. She should call the office to make an appointment. All questions answered at the time of the exam. Quality VTE Deep Vein Thrombosis/Pulmonary Embolism Present on Admission: No
--- NOTE | 2018-02-03 10:51 | PC.NURSE ---
patient agreeable with plan of care, order to dc to snf this morning and patient states she has notified her family. Hard shell brace in place. report called to admissions nurse Jaycob at [facility], question as to when the antibiotic stop date is, otherwise no further questions. Patient packed and awaiting transport pickle sorter. Call placed to Dr. Castaneda to clarify antibiotic stop date.
--- NOTE | 2018-02-03 11:20 | PT.IPTN ---
Current Diagnoses Other osteoporosis with current pathological fracture, vertebra(e), initial encounter for fracture (01/26/18) Age-related osteoporosis without current pathological fracture (01/26/18) Other fracture of first lumbar vertebra, initial encounter for closed fracture (01/26/18) Physical Therapy Treatment Note M2 PT-IP Current Condition Start: 01/25/18 08:19 Freq: Status: Active Protocol: Document 01/25/18 15:21 IJS (Rec: 01/25/18 15:26 IJS [id number]) Physical Therapy Current Condition Current Condition Evaluation Date 01/25/18 Treatment Diagnosis L1 fracture, impaired mobility Onset Date 01/23/18 Precautions Lumbar Precautions Log Roll No Twisting Limit Bending Other Precautions Brace to be worn when upright and ambulating, ok to take off for hygene. Weight Bearing Status Weight Bearing Status Weight Bear as Tolerated M3 PT-IP Subjective Start: 01/25/18 08:19 Freq: Status: Active Protocol: Document 02/03/18 11:20 GGD (Rec: 02/03/18 11:56 GGD [id number]) Subjective Physical Therapy Visit Type Type Treatment Note Visit Start Time 10:55 Visit Stop Time 11:20 Total Visit Minutes 25 Number of CLIENT SERVICES MANAGER Visits 2 Physical Therapy Visit Comments Patient Comments Pt willing to get up. Therapy Pain Assessment Pain When Pain Assessed At Rest Pain Present Pain Present Pain Reported Location Bilateral Lower Back Intensity 5 Scale Used Numeric (1 - 10) M4 PT-IP Mobility and Gait Start: 01/25/18 08:19 Freq: Status: Active Protocol: Document 02/03/18 11:20 GGD (Rec: 02/03/18 11:56 GGD [id number]) PT-Bed Mobility Assessment Supine to Sit Supine to Sit Maximum Assistance 1 Person Assistance Bedrails Scooting Scooting to Edge of Bed Minimal Assistance PT-Transfer Assessment Sit to and From Stand Sit to and from Stand Minimal Assistance 1 Person Assistance Use of Upper Extremities Equipment Transfer Assistive Device Gait Belt Front Wheeled Walker Transfers Transfer Destination Wheelchair Gait Assessment Gait Gait Assistance Required: Minimum Assistance 1 Person Assist Distance (Feet) (feet) 10 Assistive Devices Assistive Device Gait Belt Front Wheeled Walker Orthotic/Prosthetic Devices or Brace: Yes Gait Deviations General Gait Pattern Antalgic Decreased Stride Length Decreased Feet Clearance Step-to Gait Factors Limiting Gait Function Factors Limiting Gait Function Decreased Activity Tolerance Decreased Strength Difficulty Following Directions Pain Poor Balance Poor Safety Awareness M5 PT-IP Objective Assessments Start: 01/25/18 08:19 Freq: Status: Active Protocol: Document 01/25/18 08:22 RS (Rec: 01/25/18 08:44 RS [id number]) Orientation Orientation/Cognition Level of Alertness Alert Orientation Name Age Birthday Month Date Year Day of Week Place Situation Language Function Ability No Deficits Noted Safety Awareness Understands Safety Issues Memory Description No Deficits Noted Gross Range of Motion Upper Extremity ROM Assessment Within Functional Limits Lower Extremity ROM Impairments likely WFL structurally but limited by pain Strength Upper Extremity Strength Assessment Within Functional Limits Comments Strength Comments limited due to pain M6 PT-IP Treatment Start: 01/25/18 08:19 Freq: Status: Active Protocol: Document 02/02/18 11:43 AB (Rec: 02/02/18 11:50 AB [id number]) Physical Therapy Treatment Education Education Provided Precautions Safety Equipment Issued Equipment Type and Company pt has mickey VELAZQUEZ brace from [employer] O[employer]P M7 PT-IP Assessment and Plan Start: 01/25/18 08:19 Freq: Status: Active Protocol: Document 02/03/18 11:20 GGD (Rec: 02/03/18 11:56 GGD [id number]) PT Summary Assessment and Plan Summary Assessment Summary Pt improving slowly. She needs less assist, but is still slow moving. Frequency of Treatment Frequency Of Treatment Twice a Day Treatment Plan Physical Therapy Treatment Plan Bed Mobility Training Transfer Training Gait Training Therapeutic Exercise Balance Retraining Post Op Education Discharge Planning Hot or Cold Pack Neuromuscular Re-ed Coordination Retraining Manual Therapy Recommendations To Nursing Amount of Assist Needed 2 Person Assist Discharge Recommendations PT Discharge Recommendations SNF Rehab
== END 2018-02-03 11:15 | DRG 543 ==
LOC: ED 01-25 08:58 → AC 01-25 09:01
PROVIDERS: Admitting Provider Internal Medicine; Emergency Provider Emergency Medicine; Family Provider Internal Medicine; PCP Internal Medicine; Visit Provider Internal Medicine
DX: M80.88XA Other osteoporosis with current pathological fracture, vertebra(e), initial encounter for fracture (principal); K56.7 Ileus, unspecified; T83.511A Infection and inflammatory reaction due to indwelling urethral catheter, initial encounter; N39.0 Urinary tract infection, site not specified; M43.26 Fusion of spine, lumbar region; M41.9 Scoliosis, unspecified; B96.20 Unspecified Escherichia coli [E. coli] as the cause of diseases classified elsewhere
CPT/HCPCS: 72100; 74174; 80053; 81001; 83605; 85025; 87077; 87086; 87186; 94760; 94762; 97110; 97116; 97162; 97166; 97530; 97535; 99219; 99232; 99233; 99238; 99285; G0378; J1170; J1650; J2405; J3360; Q9967

== ENCOUNTER → 2018-03-10 14:11 | Outpatient (CLI) | payer MEDICARE, SELFPAY ==
--- NOTE | 2018-03-10 | OV.WND_ITS ---
Progress Note Details Patient Name: Fadumo Ny Patient Number: [id number] PatientPatientDate: 03/10/2018 Clinician: Lianet Rivera Clinician Cosigner: Josefa Singletary Physician / Airplane Patrol Pilot: Mychal Montoya SUBJECTIVE Chief Complaint This information was obtained from the patient Pressure Injury on Coccyx. Allergies NKDA HPI This information was obtained from the patient 03/10/18. Seen by Dr. Montoya. The patient's new to our clinic and presents with a chronic sacral pressure ulcer that she feels occurred while recovering [place] a back injury in [place] and has been present for at least 2 weeks noting it was first found by a wound care provider under contract at the facility. She does not report pain at the site nor significant drainage and is relatively mobile while wearing a back immobilizing brace at all times except when in bed. She's offloading the ulcer as directed and does not report fevers, feeling unwell, or other acute issues at this time. Family History This information was obtained from the patient Unknown History - Father, Paternal Grandparents, Cancer - Mother, Diabetes - No History, Heart Disease - No History, Hereditary Spherocytosis - No History, Hypertension - No History, Kidney Disease - No History, Seizures - No History, Stroke - No History, Thyroid Problems - No History Social History This information was obtained from the patient Former smoker - Many Many years ago., Children - 2, Lives in - own home Has a caregiver 4 hours 7 days a week, Marital Status - General Notes: Has Medi Alert. Past Medical History This information was obtained from the patient Patient has a medical history of: Osteoporosis Chronic Sergey Lesions Chronic Back Pain Idiopathic Scoliosis Stress-Induce Cardiomyopathy Hiatal Hernia Gastrointestinal hemorrhage Duodenal ulcer Diverticular disease Surgical History This information was obtained from the patient Patient has a surgical history of: Nephrectomy Complaints and Symptoms This information was obtained from the patient Patient complains of: General Notes: I have reviewed and concur with the Review of Systems and Past Family Social History documents completed by the clinician, I have reviewed and concur with the Wound Assessment document completed by the clinician Integumentary (Hair/Skin/Nails): Open Sore Musculoskeletal: Assistive Devices, Muscle Weakness Prior Wound History: Drainage, Erythema Patient denies complaints or symptoms related to: Constitutional Symptoms (General Health): Chills, Fever Ear/Nose/Mouth/Throat: Hearing Loss / Aid Gastrointestinal (GI): Diarrhea, Stomach/abdominal pain Hematologic/Lymphatic: Bleeding / Clotting Disorders, Bleeding Tendency Neurological: Loss of Protective Sensation Psychiatric: Memory Loss Respiratory: Shortness of Breath General Notes: Updated on all Immunizations. Additional Information Does patient have a history of Cancer? Yes? Complete all questions.: No Patient underwent Radiation Treatment? If yes, answer question below.: No Medications gabapentin 600 mg tablet oral 1 1 tablet oral twice daily metoprolol tartrate 25 mg tablet oral 1 1 tablet oral twice daily alendronate 70 mg tablet oral 1 1 tablet oral every week ferrous sulfate 325 mg (65 mg iron) tablet oral tablet oral twice daily Multiple Vitamins tablet oral tablet oral hydrocodone 5 mg-acetaminophen 325 mg tablet oral 1-2 1-2 tablet oral every 6-8 hours as needed omeprazole 40 mg capsule,delayed release oral 1 1 capsule,delayed release(DR/EC ) oral once daily nortriptyline 50 mg capsule oral 1 1 capsule oral once daily vitamin E (dl, acetate) 400 unit capsule oral 1 1 capsule oral once daily OBJECTIVE Constitutional BP elevated; Afebrile; Alert and in no distress. Frail appearing. Height/Length : 65 in (165.1 cm), Weight: 154.9 lbs (70.41 kgs), BMI: 25.8, Temperature: 98.2 ?F (36.78 ?C), Pulse: 87 bpm, Respiratory Rate: 18 breaths/min, Blood Pressure: 173/103 mmHg, Pulse Oximetry: 97 %. Ears, Nose, Mouth, and Throat: No clinically significant hearing loss on informal examination. Respiratory: No respiratory distress. Even respirations and without use of accessory muscles.. Gastrointestinal (GI): Non-obese. Nondistended.. Musculoskeletal: Significant right gluteal wasting. Significant left gluteal wasting. Integumentary (Hair, Skin) Mild periwound erythema without warmth; no evidence of DTI. Refer to appropriate clinician wound documentation for this visit; sacral ulcer extends to deep subcut with entire base visible and covered with pink granulation, minimal slough and biofilm, and no signs of clinically significant infection; no exposed bone appreciable. Wound #1 Coccyx is a chronic Stage 3 Pressure Injury Pressure Ulcer and has received a status of Not Healed. Initial wound encounter measurements are 2.4cm length x 2.8cm width x 3.3cm depth, with an area of 6.72 sq cm and a volume of 22.176 cubic cm. No tunneling has been noted. No sinus tract has been noted. No undermining has been noted. There is a large amount of purulent drainage noted which has a strong odor. The patient reports a wound pain of level 0/10. The wound margin is attached. Wound bed has No epithelialization , No eschar, Yes slough, Yes pink, spongy granulation. The periwound skin texture is normal. The periwound skin moisture is normal. The periwound skin color is normal. The temperature of the periwound skin is WNL. Periwound skin presents with s/s of infection. Confirmation Description and Treatment Plan is: Signs and Symptoms Present. Neurological: Cranial nerves grossly intact with symmetric function normal by informal observation.. ASSESSMENT Active Problems ICD-10 (Encounter Diagnosis) L89.43 - Pressure ulcer of contiguous site of back, buttock and hip, stage 3 (Encounter Diagnosis) M62.84 - Sarcopenia (Encounter Diagnosis) M54.5 - Low back pain PLAN Wound Orders: Wound #1 Coccyx Anesthetic Topical Xylocaine to wound bed. - In Clinic Cleanser Cleanse Wound: - With Normal saline or distilled water May Shower. - Keep dry. Topical Treatments Antibiotic/Antimicrobial Ointment/Cream. - Gentamicin Dressings Pack wound: - Plain Packing Strip 1 inches Cover and secure with: - Foam Gauze. Change Dressing: - Every 3 days Off-Loading Keep weight off: - Weight of coccyx. Follow-Up Appointments Return Appointment: - - One Week. General Notes: [facility]. I've reviewed the clinician's documentation and agree with the evaluation and plan as written. Also, the patient's been advised regarding ongoing offloading measures and the use of NPWT which we'll consider starting at her visit next week. Electronic Signature(s) Signed By: Date: Mychal Montoya MD 03/11/2018 09:29:15 Entered By: Mychal Montoya on 03/11/2018 08:21:58
== END ==
PROVIDERS: Family Provider Internal Medicine; PCP Internal Medicine; Visit Provider Internal Medicine
DX: L89.153 Pressure ulcer of sacral region, stage 3 (principal); M62.84 Sarcopenia; M54.5 Low back pain
CPT/HCPCS: 99213

== ENCOUNTER → 2018-03-17 10:55 | Outpatient (CLI) | payer MEDICARE, SELFPAY | PROVIDERS: Family Provider Internal Medicine; PCP Internal Medicine; Visit Provider Internal Medicine | DX: L89.153 Pressure ulcer of sacral region, stage 3 (principal) | CPT/HCPCS: 11042 ==

== ENCOUNTER → 2018-03-24 10:57 | Outpatient (CLI) | payer MEDICARE, SELFPAY ==
--- NOTE | 2018-03-24 | OV.WND_ITS ---
Progress Note Details Patient Name: Fadumo Ny Patient Number: [id number] PatientPatientDate: 03/24/2018 Clinician: Lianet Rivera Physician / Bale Opener: Mychal Montoya SUBJECTIVE Chief Complaint This information was obtained from the patient Pressure Injury on Coccyx. Allergies NKDA HPI This information was obtained from the patient 03/24/18. Seen by Dr. Montoya. The patient does not report pain or significant drainage associated with the chronic sacral pressure ulcer since her last visit. 03/17/18. Seen by Dr. Montoya. The patient does not report pain or significant drainage associated with the chronic sacral pressure ulcer since her last visit and we' re awaiting approval for placement of a wound vac. 03/10/18. Seen by Dr. Montoya. The patient's new to our clinic and presents with a chronic sacral pressure ulcer that she feels occurred while recovering from a back injury in long term and has been present for at least 2 weeks noting it was first found by a wound care provider under contract at the facility. She does not report pain at the site nor significant drainage and is relatively mobile while wearing a back immobilizing brace at all times except when in bed. She's offloading the ulcer as directed and does not report fevers, feeling unwell, or other acute issues at this time. Past Medical History This information was obtained from the patient Patient has a medical history of: Osteoporosis Chronic Sergey Lesions Chronic Back Pain Idiopathic Scoliosis Stress-Induce Cardiomyopathy Hiatal Hernia Gastrointestinal hemorrhage Duodenal ulcer Diverticular disease Complaints and Symptoms This information was obtained from the patient Patient complains of: General Notes: I have reviewed and concur with the Review of Systems and Past Family Social History documents completed by the clinician, I have reviewed and concur with the Wound Assessment document completed by the clinician Integumentary (Hair/Skin/Nails): Open Sore Musculoskeletal: Assistive Devices, Muscle Weakness Prior Wound History: Drainage, Erythema Patient denies complaints or symptoms related to: Constitutional Symptoms (General Health): Chills, Fever Ear/Nose/Mouth/Throat: Hearing Loss / Aid Gastrointestinal (GI): Diarrhea, Stomach/abdominal pain Hematologic/Lymphatic: Bleeding / Clotting Disorders, Bleeding Tendency Neurological: Loss of Protective Sensation Psychiatric: Memory Loss Respiratory: Shortness of Breath Additional Information Does patient have a history of Cancer? Yes? Complete all questions.: No Patient underwent Radiation Treatment? If yes, answer question below.: No OBJECTIVE Constitutional BP elevated; Afebrile; Alert and in no distress. Frail appearing. Height/Length : 65 in (165.1 cm), Weight: 154.5 lbs (70.23 kgs), BMI: 25.7, Temperature: 98.6 ?F (37 ?C), Pulse: 70 bpm, Respiratory Rate: 18 breaths/min, Blood Pressure: 170/98 mmHg, Pulse Oximetry: 94 %. Respiratory: No respiratory distress. Even respirations and without use of accessory muscles.. Integumentary (Hair, Skin) No periwound erythema, warmth, or significant drainage. No periwound rashes appreciated or noted otherwise.. Refer to appropriate clinician wound documentation for this visit; sacral ulcer extends to deep subcut but is much more shallow and smaller than on previous review. Wound #1 Coccyx is a chronic Stage 3 Pressure Injury Pressure Ulcer and has received a status of Not Healed. Subsequent wound encounter measurements are 1.2cm length x 1.6cm width x 1cm depth, with an area of 1.92 sq cm and a volume of 1.92 cubic cm. No tunneling has been noted. No sinus tract has been noted. No undermining has been noted. There is a moderate amount of serous drainage noted which has no odor. The patient reports a wound pain of level 0/10. The wound margin is attached. Wound bed has No epithelialization, No eschar, Yes slough, Yes pink, spongy granulation. The periwound skin texture is normal. The periwound skin moisture is normal. The periwound skin color is normal. The temperature of the periwound skin is WNL. Periwound skin does not exhibit signs or symptoms of infection. Local Pulse is N/A. ASSESSMENT Active Problems ICD-10 (Encounter Diagnosis) L89.43 - Pressure ulcer of contiguous site of back, buttock and hip, stage 3 PROCEDURES Wound #1 Wound #1 (Pressure Ulcer) is located on the coccyx. A skin/subcutaneous tissue level surgical debridement with a total area debrided of 1.92 sq cm was performed by Mychal Montoya MD. Subcutaneous was removed along with devitalized tissue: exudate and slough. The following instrument(s) were used: curette. Pain control was achieved using 4% Lido. A time out was conducted prior to the start of the procedure. A minimal amount of bleeding was controlled with pressure. The procedure was tolerated well with a pain level of 0 throughout and a pain level of 0 following the procedure. Post Debridement Measurements: 1.2cm length x 1.6cm width x 1cm depth; with an area of 1.92 sq cm and a volume of 1.92 cubic cm; Additional Information Muscle fascia or bone removed and sent to pathology?: No PLAN Wound Orders: Wound #1 Coccyx Anesthetic Topical Xylocaine to wound bed. - In Clinic Cleanser Cleanse Wound: - With Normal saline or distilled water May Shower. - Keep dry. Topical Treatments Antibiotic/Antimicrobial Ointment/Cream. - Gentamicin Dressings Pack wound: - Plain Packing Strip 1 inches Cover and secure with: - Bordered foam Change Dressing: - Every 3 days Additional Orders: Off-Loading Keep weight off: - Weight of coccyx. Turn every 2 hours. Avoid position directing pressure to Wound site. Limit side lying to 30 degree tilt. Limit HOB elevation to 30 degrees in bed. Follow-Up Appointments Return Appointment: - - One Week. Other information: If you develop fever, chills, increased pain, drainage, redness or swelling please call our office. If after hours, respond to the ER. Should you experience any significant changes in your wound(s) or have any questions regarding your home care instructions please contact the wound center @ [phone]. If after hours, contact your primary care physician or go to the hospital emergency room. Scribing Attestation I attest, as the nurse, that I scribed these orders for the physician. General Notes: [facility] continue dressing changes twice a week. We are still working on approval for PICA Negative Pressure Divice I've reviewed the clinician's documentation and agree with the evaluation and plan as written. In addition, the patient's ulcer demonstrates evidence of non-viable devitalized tissue which will continue to benefit from sharp debridement to help promote granulation and expedite healing. Electronic Signature(s) Signed By: Date: Mychal Montoya MD 03/25/2018 08:53:09 Entered By: Mychal Montoya on 03/25/2018 07:19:05
== END ==
PROVIDERS: Family Provider Internal Medicine; PCP Internal Medicine; Visit Provider Internal Medicine
DX: L89.43 Pressure ulcer of contiguous site of back, buttock and hip, stage 3 (principal)
CPT/HCPCS: 11042

== ENCOUNTER → 2018-03-31 14:35 | Outpatient (CLI) | payer MEDICARE, SELFPAY ==
--- NOTE | 2018-03-31 | OV.WND_ITS ---
Progress Note Details Patient Name: Fadumo Ny Patient Number: [id number] PatientPatientDate: 03/31/2018 Clinician: Yaz Dutta Clinician Cosigner: Josefa Singletary Physician / Healthcare Economics Consultant: Mychal Montoya SUBJECTIVE Chief Complaint This information was obtained from the patient Pressure Injury on Coccyx. Allergies NKDA HPI This information was obtained from the patient 03/31/18. Seen by Dr. Montoya. The patient does not report pain or significant drainage associated with the chronic sacral pressure ulcer since her last visit. 03/24/18. Seen by Dr. Montoya. The patient does not report pain or significant drainage associated with the chronic sacral pressure ulcer since her last visit. 03/17/18. Seen by Dr. Montoya. The patient does not report pain or significant drainage associated with the chronic sacral pressure ulcer since her last visit and we' re awaiting approval for placement of a wound vac. 03/10/18. Seen by Dr. Montoya. The patient's new to our clinic and presents with a chronic sacral pressure ulcer that she feels occurred while recovering from a back injury in [place] and has been present for at least 2 weeks noting it was first found by a wound care provider under contract at the facility. She does not report pain at the site nor significant drainage and is relatively mobile while wearing a back immobilizing brace at all times except when in bed. She's offloading the ulcer as directed and does not report fevers, feeling unwell, or other acute issues at this time. Past Medical History This information was obtained from the patient Patient has a medical history of: Osteoporosis Chronic Sergey Lesions Chronic Back Pain Idiopathic Scoliosis Stress-Induce Cardiomyopathy Hiatal Hernia Gastrointestinal hemorrhage Duodenal ulcer Diverticular disease Complaints and Symptoms This information was obtained from the patient Patient complains of: General Notes: I have reviewed and concur with the Review of Systems and Past Family Social History documents completed by the clinician, I have reviewed and concur with the Wound Assessment document completed by the clinician Integumentary (Hair/Skin/Nails): Open Sore Musculoskeletal: Assistive Devices, Muscle Weakness Prior Wound History: Drainage, Erythema Patient denies complaints or symptoms related to: Constitutional Symptoms (General Health): Chills, Fever Ear/Nose/Mouth/Throat: Hearing Loss / Aid Gastrointestinal (GI): Diarrhea, Stomach/abdominal pain Hematologic/Lymphatic: Bleeding / Clotting Disorders, Bleeding Tendency Neurological: Loss of Protective Sensation Psychiatric: Memory Loss Respiratory: Shortness of Breath Additional Information Does patient have a history of Cancer? Yes? Complete all questions.: No Patient underwent Radiation Treatment? If yes, answer question below.: No OBJECTIVE Constitutional BP elevated; Afebrile; Alert and in no distress. Well developed. Alert. Clean appearing.. Height/Length: 65 in (165.1 cm), Weight: 154.5 lbs (70.23 kgs), BMI: 25.7, Temperature: 98.3 ?F (36.83 ?C), Pulse: 78 bpm, Respiratory Rate: 18 breaths/min, Blood Pressure: 188/107 mmHg, Pulse Oximetry: 96 %. Ears, Nose, Mouth, and Throat: No clinically significant hearing loss on informal examination. Respiratory: No respiratory distress. Even respirations and without use of accessory muscles.. Integumentary (Hair, Skin) No periwound erythema, warmth, or significant drainage. No periwound rashes appreciated or noted otherwise.. Refer to appropriate clinician wound documentation for this visit; sacral ulcer extends to deep subcut but is much more shallow and smaller than on previous review; a bit of friable hypergranulation aroung the margin. Wound #1 Coccyx is a chronic Stage 3 Pressure Injury Pressure Ulcer and has received a status of Not Healed. Subsequent wound encounter measurements are 0.5cm length x 0.9cm width x 1cm depth, with an area of 0.45 sq cm and a volume of 0.45 cubic cm. No tunneling has been noted. No sinus tract has been noted. No undermining has been noted. There is a moderate amount of serous drainage noted which has a mild odor. The patient reports a wound pain of level 0/10. The wound margin is attached. Wound bed has Yes epithelialization, No eschar, Yes slough, Yes bright red, firm granulation. The periwound skin texture is normal. The periwound skin color is normal. The periwound skin exhibited: Moist. The periwound skin did not exhibit: Dry/Scaly, Maceration. The temperature of the periwound skin is WNL. Periwound skin does not exhibit signs or symptoms of infection. Local Pulse is N/A. Neurological: Cranial nerves grossly intact with symmetric function normal by informal observation.. ASSESSMENT Active Problems ICD-10 (Encounter Diagnosis) L89.43 - Pressure ulcer of contiguous site of back, buttock and hip, stage 3 (Encounter Diagnosis) L92.9 - Granulomatous disorder of the skin and subcutaneous tissue, unspecified PROCEDURES Wound #1 Wound #1 (Pressure Ulcer) is located on the coccyx. A Chemical Cauterization procedure was performed by Mychal Montoya MD. General Notes: Silver nitrate to hypergranulation. PLAN Wound Orders: Wound #1 Coccyx Anesthetic Topical Xylocaine to wound bed. - In Clinic. Cleanser Cleanse Wound: - With Normal saline or distilled water May Shower. - Keep dry. Dressings Cover and secure with: - Silicone bordered foam. Change Dressing: - Every 3 days. Additional Orders: Off-Loading Keep weight off: - Weight of coccyx. Turn every 2 hours. Avoid position directing pressure to Wound site. Limit side lying to 30 degree tilt. Limit HOB elevation to 30 degrees in bed. Follow-Up Appointments Return Appointment: - - One Week. Other information: If you develop fever, chills, increased pain, drainage, redness or swelling please call our office. If after hours, respond to the ER. Should you experience any significant changes in your wound(s) or have any questions regarding your home care instructions please contact the wound center @ [phone]. If after hours, contact your primary care physician or go to the hospital emergency room. Scribing Attestation I attest, as the nurse, that I scribed these orders for the physician. General Notes: No more topical gentamicin ointment, or 1/4 inch gauze ribbon at this time. In addition the presence of hypergranulation tissue in the wound was not an expected finding and was cauterized with silver nitrate. The patient's dressing regimen will be modified appropriately to attempt to reduce the formation of further hypergranulation tissue. Electronic Signature(s) Signed By: Date: Mychal Montoya MD 04/01/2018 09:41:06 Entered By: Mychal Montoya on 03/31/2018 15:16:43
== END ==
PROVIDERS: Family Provider Internal Medicine; PCP Internal Medicine; Visit Provider Internal Medicine
DX: L89.43 Pressure ulcer of contiguous site of back, buttock and hip, stage 3 (principal); L92.2 Granuloma faciale [eosinophilic granuloma of skin]
CPT/HCPCS: 17250

== ENCOUNTER → 2018-04-07 13:47 | Outpatient (CLI) | payer MEDICARE, SELFPAY ==
--- NOTE | 2018-04-07 | OV.WND_ITS ---
Progress Note Details Patient Name: Fadumo Ny Patient Number: [id number] PatientPatientDate: 04/07/2018 Clinician: Yaz Dutta Clinician Cosigner: Josefa Singletary Physician / Penology Teacher: Mychal Montoya SUBJECTIVE Chief Complaint This information was obtained from the patient Pressure Injury on Coccyx. Allergies NKDA HPI This information was obtained from the patient 04/07/18. Seen by Dr. Montoya. The patient does not report pain or significant drainage associated with the chronic sacral pressure ulcer since her last visit. 03/31/18. Seen by Dr. Montoya. The patient does not report pain or significant drainage associated with the chronic sacral pressure ulcer since her last visit. 03/24/18. Seen by Dr. Montoya. The patient does not report pain or significant drainage associated with the chronic sacral pressure ulcer since her last visit. 03/17/18. Seen by Dr. Montoya. The patient does not report pain or significant drainage associated with the chronic sacral pressure ulcer since her last visit and we' re awaiting approval for placement of a wound vac. 03/10/18. Seen by Dr. Montoya. The patient's new to our clinic and presents with a chronic sacral pressure ulcer that she feels occurred while recovering from a back injury in [facility] and has been present for at least 2 weeks noting it was first found by a wound care provider under contract at the facility. She does not report pain at the site nor significant drainage and is relatively mobile while wearing a back immobilizing brace at all times except when in bed. She's offloading the ulcer as directed and does not report fevers, feeling unwell, or other acute issues at this time. Past Medical History This information was obtained from the patient Patient has a medical history of: Osteoporosis Chronic Sergey Lesions Chronic Back Pain Idiopathic Scoliosis Stress-Induce Cardiomyopathy Hiatal Hernia Gastrointestinal hemorrhage Duodenal ulcer Diverticular disease Complaints and Symptoms This information was obtained from the patient Patient complains of: General Notes: I have reviewed and concur with the Review of Systems and Past Family Social History documents completed by the clinician, I have reviewed and concur with the Wound Assessment document completed by the clinician Integumentary (Hair/Skin/Nails): Open Sore Musculoskeletal: Assistive Devices, Muscle Weakness Prior Wound History: Drainage, Erythema Patient denies complaints or symptoms related to: Constitutional Symptoms (General Health): Chills, Fever Ear/Nose/Mouth/Throat: Hearing Loss / Aid Gastrointestinal (GI): Diarrhea, Stomach/abdominal pain Hematologic/Lymphatic: Bleeding / Clotting Disorders, Bleeding Tendency Neurological: Loss of Protective Sensation Psychiatric: Memory Loss Respiratory: Shortness of Breath Additional Information Does patient have a history of Cancer? Yes? Complete all questions.: No Patient underwent Radiation Treatment? If yes, answer question below.: No OBJECTIVE Constitutional BP elevated; Afebrile; Alert and in no distress. Well developed. Alert. Clean appearing.. Height/Length: 65 in (165.1 cm), Weight: 154.5 lbs (70.23 kgs), BMI: 25.7, Temperature: 98.2 ?F (36.78 ?C), Pulse: 92 bpm, Respiratory Rate: 16 breaths/min, Blood Pressure: 184/108 mmHg, Pulse Oximetry: 95 %. Integumentary (Hair, Skin) No periwound erythema, warmth, or significant drainage. No periwound rashes appreciated or noted otherwise.. Refer to appropriate clinician wound documentation for this visit; sacral ulcer extends to subcut with base partially covered with pink granulation and minimal hypergranulation extending from ulcer. Wound #1 Coccyx is a chronic Stage 3 Pressure Injury Pressure Ulcer and has received a status of Not Healed. Subsequent wound encounter measurements are 0.5cm length x 0.5cm width x 0.3cm depth, with an area of 0.25 sq cm and a volume of 0.075 cubic cm. Hypergranulation was noted. No tunneling has been noted. No sinus tract has been noted. No undermining has been noted. There is a moderate amount of serosanguineous drainage noted which has no odor. The patient reports a wound pain of level 0/10. The wound margin is attached. Wound bed has Yes epithelialization, No eschar, Yes slough, Yes bright red, firm granulation. The periwound skin texture is normal. The periwound skin color is normal. The periwound skin exhibited: Moist. The periwound skin did not exhibit: Dry/Scaly, Maceration. The temperature of the periwound skin is WNL. Periwound skin does not exhibit signs or symptoms of infection. Local Pulse is N/A. Neurological: Cranial nerves grossly intact with symmetric function normal by informal observation.. ASSESSMENT Active Problems ICD-10 (Encounter Diagnosis) L89.43 - Pressure ulcer of contiguous site of back, buttock and hip, stage 3 (Encounter Diagnosis) L92.9 - Granulomatous disorder of the skin and subcutaneous tissue, unspecified PROCEDURES Wound #1 Wound #1 (Pressure Ulcer) is located on the coccyx. A Chemical Cauterization procedure was performed by Mychal Montoya MD. General Notes: Silver nitrate to hypergranulation. PLAN Wound Orders: Wound #1 Coccyx Anesthetic Topical Xylocaine to wound bed. - In Clinic. Cleanser Cleanse Wound: - With Normal saline or distilled water May Shower. - Keep dry. Dressings Primary dressing: - Sterile 2x2 to treat hypergranulation. Cover and secure with: - Silicone bordered foam. Change Dressing: - HH please change dressing every 3 days. Additional Orders: Off-Loading Keep weight off: - Coccyx. Turn every 2 hours. Avoid position directing pressure to Wound site. Limit side lying to 30 degree tilt. Limit HOB elevation to 30 degrees in bed. Follow-Up Appointments Return Appointment: - - One Week. Other information: If you develop fever, chills, increased pain, drainage, redness or swelling please call our office. If after hours, respond to the ER. Should you experience any significant changes in your wound(s) or have any questions regarding your home care instructions please contact the wound center @ [phone]. If after hours, contact your primary care physician or go to the hospital emergency room. Scribing Attestation I attest, as the nurse, that I scribed these orders for the physician. In addition the presence of hypergranulation tissue in the wound was not an expected finding and was cauterized with silver nitrate. The patient's dressing regimen will be modified appropriately to attempt to reduce the formation of further hypergranulation tissue. Electronic Signature(s) Signed By: Date: Mychal Montoya MD 04/08/2018 06:00:06 Entered By: Mychal Montoya on 04/08/2018 05:46:35
== END ==
PROVIDERS: Family Provider Internal Medicine; PCP Internal Medicine; Visit Provider Internal Medicine
DX: L89.43 Pressure ulcer of contiguous site of back, buttock and hip, stage 3 (principal); L92.9 Granulomatous disorder of the skin and subcutaneous tissue, unspecified
CPT/HCPCS: 17250

== ENCOUNTER → 2018-04-14 09:13 | Outpatient (CLI) | payer MEDICARE, SELFPAY ==
--- NOTE | 2018-04-14 | OV.WND_ITS ---
Progress Note Details Patient Name: Fadumo Ny Patient Number: [id number] PatientPatientDate: 04/14/2018 Clinician: Yaz Dutta Clinician Cosigner: Josefa Singletary Physician / Stage Driver: Mychal Montoya SUBJECTIVE Chief Complaint This information was obtained from the patient Pressure Injury on Coccyx. Allergies NKDA HPI This information was obtained from the patient 04/14/18. Seen by Dr. Montoya. The patient does not report pain or significant drainage associated with the chronic sacral pressure ulcer since her last visit. 04/07/18. Seen by Dr. Montoya. The patient does not report pain or significant drainage associated with the chronic sacral pressure ulcer since her last visit. 03/31/18. Seen by Dr. Montoya. The patient does not report pain or significant drainage associated with the chronic sacral pressure ulcer since her last visit. 03/24/18. Seen by Dr. Montoya. The patient does not report pain or significant drainage associated with the chronic sacral pressure ulcer since her last visit. 03/17/18. Seen by Dr. Montoya. The patient does not report pain or significant drainage associated with the chronic sacral pressure ulcer since her last visit and we' re awaiting approval for placement of a wound vac. 03/10/18. Seen by Dr. Montoya. The patient's new to our clinic and presents with a chronic sacral pressure ulcer that she feels occurred while recovering [place] a back injury in [place] and has been present for at least 2 weeks noting it was first found by a wound care provider under contract at the facility. She does not report pain at the site nor significant drainage and is relatively mobile while wearing a back immobilizing brace at all times except when in bed. She's offloading the ulcer as directed and does not report fevers, feeling unwell, or other acute issues at this time. Past Medical History This information was obtained from the patient Patient has a medical history of: Osteoporosis Chronic Sergey Lesions Chronic Back Pain Idiopathic Scoliosis Stress-Induce Cardiomyopathy Hiatal Hernia Gastrointestinal hemorrhage Duodenal ulcer Diverticular disease Complaints and Symptoms This information was obtained from the patient Patient complains of: General Notes: I have reviewed and concur with the Review of Systems and Past Family Social History documents completed by the clinician, I have reviewed and concur with the Wound Assessment document completed by the clinician Integumentary (Hair/Skin/Nails): Open Sore Musculoskeletal: Assistive Devices, Muscle Weakness Prior Wound History: Drainage, Erythema Patient denies complaints or symptoms related to: Constitutional Symptoms (General Health): Chills, Fever Ear/Nose/Mouth/Throat: Hearing Loss / Aid Gastrointestinal (GI): Diarrhea, Stomach/abdominal pain Hematologic/Lymphatic: Bleeding / Clotting Disorders, Bleeding Tendency Neurological: Loss of Protective Sensation Psychiatric: Memory Loss Respiratory: Shortness of Breath Additional Information Does patient have a history of Cancer? Yes? Complete all questions.: No Patient underwent Radiation Treatment? If yes, answer question below.: No OBJECTIVE Constitutional BP elevated; Low grade fever; Alert and in no distress. Well developed. Alert. Clean appearing.. Height/Length: 65 in (165.1 cm), Weight: 154.5 lbs (70.23 kgs), BMI : 25.7, Temperature: 99.7 ?F (37.61 ?C), Pulse: 87 bpm, Respiratory Rate: 18 breaths/min , Blood Pressure: 159/95 mmHg, Pulse Oximetry: 98 %. Ears, Nose, Mouth, and Throat: No clinically significant hearing loss on informal examination. Integumentary (Hair, Skin) No periwound erythema, warmth, or significant drainage. No periwound rashes appreciated or noted otherwise.. Refer to appropriate clinician wound documentation for this visit; hypergranulation overlying ulcer base which is nearly healed. Wound #1 Coccyx is a chronic Stage 3 Pressure Injury Pressure Ulcer and has received a status of Not Healed. Subsequent wound encounter measurements are 0.1cm length x 0.1cm width x 0.1cm depth, with an area of 0.01 sq cm and a volume of 0.001 cubic cm. Hypergranulation was noted. No tunneling has been noted. No sinus tract has been noted. No undermining has been noted. There was no drainage noted. The patient reports a wound pain of level 0/10. The wound margin is attached. Wound bed has Yes epithelialization , No eschar, No slough, Yes pink, firm granulation. The periwound skin texture is normal. The periwound skin moisture is normal. The periwound skin color is normal. The temperature of the periwound skin is WNL. Periwound skin does not exhibit signs or symptoms of infection. Local Pulse is N/A. Neurological: Cranial nerves grossly intact with symmetric function normal by informal observation.. ASSESSMENT Active Problems ICD-10 (Encounter Diagnosis) L89.43 - Pressure ulcer of contiguous site of back, buttock and hip, stage 3 (Encounter Diagnosis) L92.9 - Granulomatous disorder of the skin and subcutaneous tissue, unspecified PROCEDURES Wound #1 Wound #1 (Pressure Ulcer) is located on the coccyx. A Chemical Cauterization procedure was performed by Mychal Montoya MD. General Notes: Silver nitrate to hypergranulation. PLAN Wound Orders: Wound #1 Coccyx Anesthetic Topical Xylocaine to wound bed. - In Clinic. Cleanser Cleanse Wound: - With Normal saline or distilled water May Shower. - Keep dry. Dressings Cover and secure with: - Silicone bordered foam. Change Dressing: - please change dressing every 3 days. Additional Orders: Off-Loading Turn every 2 hours. Avoid position directing pressure to Wound site. Limit side lying to 30 degree tilt. Limit HOB elevation to 30 degrees in bed. Follow-Up Appointments Return Appointment: - - One Week. Other information: If you develop fever, chills, increased pain, drainage, redness or swelling please call our office. If after hours, respond to the ER. Should you experience any significant changes in your wound(s) or have any questions regarding your home care instructions please contact the wound center @ [phone]. If after hours, contact your primary care physician or go to the hospital emergency room. Scribing Attestation I attest, as the nurse, that I scribed these orders for the physician. In addition the presence of hypergranulation tissue in the wound was not an expected finding and was cauterized with silver nitrate. The patient's dressing regimen will be modified appropriately to attempt to reduce the formation of further hypergranulation tissue. Electronic Signature(s) Signed By: Date: Mychal Montoya MD 04/15/2018 06:31:21 Entered By: Mychal Montoya on 04/15/2018 06:25:12
== END ==
PROVIDERS: Family Provider Internal Medicine; PCP Internal Medicine; Visit Provider Internal Medicine
DX: L89.43 Pressure ulcer of contiguous site of back, buttock and hip, stage 3 (principal); L92.9 Granulomatous disorder of the skin and subcutaneous tissue, unspecified
CPT/HCPCS: 17250

== ENCOUNTER → 2018-04-21 10:05 | Outpatient (CLI) | payer MEDICARE, SELFPAY ==
--- NOTE | 2018-04-21 | OV.WND_ITS ---
Progress Note Details Patient Name: Fadumo Ny Patient Number: [id number] PatientPatientDate: 04/21/2018 Clinician: Rosalba Durbin Clinician Cosigner: Josefa Singletary Physician / E/M Engineer: Mychal Montoya SUBJECTIVE Chief Complaint This information was obtained from the patient Pressure Injury on Coccyx. Allergies NKDA HPI This information was obtained from the patient 04/21/18. Seen by Dr. Montoya. The patient does not report pain or significant drainage associated with the chronic sacral pressure ulcer since her last visit. 04/14/18. Seen by Dr. Montoya. The patient does not report pain or significant drainage associated with the chronic sacral pressure ulcer since her last visit. 04/07/18. Seen by Dr. Montoya. The patient does not report pain or significant drainage associated with the chronic sacral pressure ulcer since her last visit. 03/31/18. Seen by Dr. Montoya. The patient does not report pain or significant drainage associated with the chronic sacral pressure ulcer since her last visit. 03/24/18. Seen by Dr. Montoya. The patient does not report pain or significant drainage associated with the chronic sacral pressure ulcer since her last visit. 03/17/18. Seen by Dr. Montoya. The patient does not report pain or significant drainage associated with the chronic sacral pressure ulcer since her last visit and we' re awaiting approval for placement of a wound vac. 03/10/18. Seen by Dr. Montoya. The patient's new to our clinic and presents with a chronic sacral pressure ulcer that she feels occurred while recovering from a back injury in senior living and has been present for at least 2 weeks noting it was first found by a wound care provider under contract at the facility. She does not report pain at the site nor significant drainage and is relatively mobile while wearing a back immobilizing brace at all times except when in bed. She's offloading the ulcer as directed and does not report fevers, feeling unwell, or other acute issues at this time. Past Medical History This information was obtained from the patient Patient has a medical history of: Osteoporosis Chronic Sergey Lesions Chronic Back Pain Idiopathic Scoliosis Stress-Induce Cardiomyopathy Hiatal Hernia Gastrointestinal hemorrhage Duodenal ulcer Diverticular disease Complaints and Symptoms This information was obtained from the patient Patient complains of: General Notes: I have reviewed and concur with the Review of Systems and Past Family Social History documents completed by the clinician, I have reviewed and concur with the Wound Assessment document completed by the clinician Integumentary (Hair/Skin/Nails): Open Sore Musculoskeletal: Assistive Devices, Muscle Weakness Prior Wound History: Drainage, Erythema Patient denies complaints or symptoms related to: Constitutional Symptoms (General Health): Chills, Fever Ear/Nose/Mouth/Throat: Hearing Loss / Aid Gastrointestinal (GI): Diarrhea, Stomach/abdominal pain Hematologic/Lymphatic: Bleeding / Clotting Disorders, Bleeding Tendency Neurological: Loss of Protective Sensation Psychiatric: Memory Loss Respiratory: Shortness of Breath Additional Information Does patient have a history of Cancer? Yes? Complete all questions.: No Patient underwent Radiation Treatment? If yes, answer question below.: No OBJECTIVE Constitutional Low grade fever; Alert and in no distress. Well developed. Alert. Clean appearing.. Height/Length: 65 in (165.1 cm), Weight: 154.5 lbs (70.23 kgs), BMI: 25.7, Temperature: 99.2 ?F (37.33 ?C), Pulse: 97 bpm, Respiratory Rate: 18 breaths/min, Pulse Oximetry: 95 %. Ears, Nose, Mouth, and Throat: No clinically significant hearing loss on informal examination. Respiratory: No respiratory distress. Even respirations and without use of accessory muscles.. Integumentary (Hair, Skin) Refer to appropriate clinician wound documentation for this visit.. Wound #1 Coccyx is a chronic Stage 3 Pressure Injury Pressure Ulcer and has received an outcome of Healed - no new wound(s). Subsequent wound encounter measurements are 0cm length x 0cm width x 0cm depth, with an area of 0 sq cm and a volume of 0 cubic cm. Hypergranulation was noted. No tunneling has been noted. No sinus tract has been noted. No undermining has been noted. There was no drainage noted. The patient reports a wound pain of level 0/10. The wound margin is attached. Wound bed has Yes epithelialization , No eschar, No slough, Yes pink, firm granulation. The periwound skin texture is normal. The periwound skin moisture is normal. The periwound skin color is normal. The temperature of the periwound skin is WNL. Periwound skin does not exhibit signs or symptoms of infection. Local Pulse is N/A. Neurological: Cranial nerves grossly intact with symmetric function normal by informal observation.. ASSESSMENT Active Problems ICD-10 (Encounter Diagnosis) L89.43 - Pressure ulcer of contiguous site of back, buttock and hip, stage 3 PLAN Additional Orders: Cleanser Cleanse Wound: - Normal saline and gauze. Off-Loading Turn every 2 hours. Avoid position directing pressure to Wound site. Limit side lying to 30 degree tilt. Limit HOB elevation to 30 degrees in bed. Follow-Up Appointments Other information: If you develop fever, chills, increased pain, drainage, redness or swelling please call our office. If after hours, respond to the ER. Should you experience any significant changes in your wound(s) or have any questions regarding your home care instructions please contact the wound center @ [phone]. If after hours, contact your primary care physician or go to the hospital emergency room. Discharge from Outpatient Services. - Wound healed. Scribing Attestation I attest, as the nurse, that I scribed these orders for the physician. I've reviewed the clinician's documentation and agree with the evaluation and plan as written. In addition the patient's last remiaining complex wound is now healed. The patient is invited to return to our clinic for treatment of any future complex wounds. Post wound care and strategies to avoid recurrences were discussed. Electronic Signature(s) Signed By: Date: Mychal Montoya MD 04/22/2018 11:44:00 Entered By: Mychal Montoya on 04/22/2018 11:38:37
== END ==
PROVIDERS: Family Provider Internal Medicine; PCP Internal Medicine; Visit Provider Internal Medicine
DX: Z48.817 Encounter for surgical aftercare following surgery on the skin and subcutaneous tissue (principal)
CPT/HCPCS: 99212

== ENCOUNTER → 2018-06-03 11:08 | Outpatient (CLI) | payer MEDICARE, SELFPAY ==
[2018-06-03 12:43] LABS: Alanine Aminotransferase 19 IU/L (9-52); Albumin 4.3 g/dL (3.5-5.0); Albumin Globulin Ratio 1.3 (1.0-2.8); Alkaline Phosphatase 57 U/L (38-126); Aspartate Aminotransferase 21 IU/L (14-36); BUN Creatinine Ratio 21.3 (6-22); Bilirubin Total 0.3 mg/dL (0.2-1.3); Blood Urea Nitrogen 17 mg/dL (7-17); Calcium 9.5 mg/dL (8.4-10.2); Carbon Dioxide 30 mmol/L (22-32); Chloride 101 mmol/L (98-107); Estimated Glomerular Filt Rate > 60.0 mL/min (>60); Globulin 3.4 g/dL (1.7-4.1); Glucose 100 mg/dL (80-110); HEMOLYSIS < 15 (0-50); Potassium 4.8 mmol/L (3.4-5.1); Sodium 141 mmol/L (137-145); Total Protein 7.7 g/dL (6.3-8.2)
[2018-06-03 14:04] LABS: Add Manual Diff / Slide Review NO; Basophils Percent Auto 0.8 % (0-2); Eosinophils Percent Auto 2.4 % (2-4); Hematocrit 39.3 % (36-46); Hemoglobin 12.9 g/dL (12.0-16.0); Lymphocytes Percent Auto 21.4 % (25-40); Mean Corpuscular HGB Conc 32.7 % (30-36); Mean Corpuscular Hemoglobin 30.7 PG (26-34); Monocytes Percent Auto 7.9 % (3-14); Neutrophils Absolute Auto 4200 /uL (3000-5900); Neutrophils Percent Auto 67.5 % (50-75); Platelet Count 285 X10^3/uL (150-400); Red Blood Cell Count 4.18 X10^6/uL (4.0-5.2); Red Cell Distribution Width 13.6 % (11.6-14.8); White Blood Cell Count 6.2 X10^3/uL (4.5-11.0)
== END ==
PROVIDERS: Family Provider Internal Medicine; PCP Internal Medicine; Visit Provider Internal Medicine
DX: I10 Essential (primary) hypertension (principal); K25.7 Chronic gastric ulcer without hemorrhage or perforation
CPT/HCPCS: 36415; 80053; 85025

== ENCOUNTER 2018-08-18 09:00 | Outpatient (RCR) | payer MEDICARE, SELFPAY ==
--- NOTE | 2018-06-03 15:08 | PT.OIE ---
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) Hiatal hernia (Chronic 07/03/11) History of gastrointestinal hemorrhage (Inactive) History of duodenal ulcer (Inactive) 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) Glaucoma (Chronic ~11/2016) Closed L1 vertebral fracture (Resolved) Provider Visit Care Team Role Provider Type Charles Castaneda MD Family Provider Physician Primary Care Provider Specialty: Internal Medicine Address: [address] [place] [address], [id number] Email: [email or web address] Timbo Portillo MD Attending Provider Physician Specialty: Orthopedic Surgery Address: [address] [place] [address], [id number] Email: [email or web address] Physical Therapy Initial Evaluation PT-OP-A Visit Information Start: 06/02/18 09:39 Freq: Status: Active Protocol: Document 06/03/18 12:45 LRN (Rec: 06/03/18 14:42 [email or web address] [id number]) Out-Patient Physical Therapy Visit Information Visit Information Visit Type Initial Evaluation Visit Start Time 12:45 Visit Stop Time 13:40 Total Visit Minutes 55 Visit Number 1 Number of FINANCIAL ANALYST ACCOUNTANT Visits 0 Evaluation Information Evaluation Date 06/03/18 PT-OP-B Current Condition Start: 06/02/18 09:39 Freq: Status: Active Protocol: Document 06/03/18 12:45 LRN (Rec: 06/03/18 14:42 LRN [id number]) Current Condition History of Current Condition Onset Date 2 yrs ago Current Complaints Constant L>R upper back pain that worsens when using arms. History of Current Condition Pt has severe idopathic scoliosis of the spine with ongoing neck and back pain. She states she has had back pain for years but due to a recent L1 compression fracture followed by a assisted stay, Dr. Mendoza referred her to Dr. Portillo, who then referred her to Dr. Thompson. She states Dr Jeanette Thompson wants her to get a neck stretch program and he will give her trigger point injections starting next month . Prior Treatments and Tests X-rays: Results unavailable. 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 Future Testing and Treatments Planned Trigger point injections by Dr Jeanette Thompson. Treatment Goals Patient/Caregiver Goals Pt goal is to be taught neck stretch ex's and to get pain relief. She would like to be able to reach overhead with less discomfort (pain level no greater than 3/10). She states currently her pain level is 5/10. Prior Functional Status Baseline Function- ADL's Independent Baseline Function- Mobility Independent Baseline Function- Work/School Limited with lifting no more than 10# due to osteoporosis. Current Functional Impairments (Reported) Functional Limitations- ADL's Increased upper back pain (L>R ) with reaching overhead. Personal Factors Other Personal Factors That May Effect Age (77). Therapy/Recovery Co-morbidities: Osteoporosis, Idiopathic Scoliosis, Stress induced cardiomyopathy, R distal radius fracture, L1 compression fracture. Lives alone. Granddaughter ( 12 yrs old) helps her 4 days/ week. PT-OP-F Manual Assessment Start: 06/02/18 09:39 Freq: Status: Active Protocol: Document 06/03/18 12:45 LRN (Rec: 06/03/18 14:42 LRN [id number]) Manual Assessments Soft Tissue Assessment Soft Tissue Mobility Assessment Tender with increased soft tissue tension at L upper back . Tenderness of L upper thoracic and mid thoracic paraspinal musculature. Joint Mobility Assessment Joint Mobility Assessment Decreased joint mobility of Cervical spine with L sidebend and L rotation. Decreased thoracic and lumbar joint mobility for extension. PT-OP-J Posture/Palpation/Skin Start: 06/02/18 09:39 Freq: Status: Active Protocol: Document 06/03/18 12:45 LRN (Rec: 06/03/18 14:42 LRN [id number]) Posture Evaluation Position Sitting Head/C-Spine Posture Forward Head T-Spine Posture Increased Kyphosis L-Spine Posture Flattened Decreased Lordosis Shoulder Posture (L) Rounded (R) Rounded (L) Elevated Arm Posture (L) Internally Rotated (R) Internally Rotated Pelvis Posture Posterior Tilted PT-OP-K Range of Motion Start: 06/02/18 09:39 Freq: Status: Active Protocol: Document 06/03/18 12:45 LRN (Rec: 06/03/18 14:42 LRN [id number]) Cervical Spine Range of Motion Cervical Spine Passive Percentage Rotation Left 10 Rotation Right 40 Lateral Flexion Left 10 Lateral Flexion Right 40 ROM Limitations Pain Shoulder Goniometric Range of Motion Shoulder Measured in Degrees Right Active Flexion 130 Abduction 120 Internal Rotation Behind Back (text) T 7 Left Active Testing Position Sitting Flexion 145 Abduction 110 Internal Rotation Behind Back (text) L 5 Shoulder ROM Limitations Shoulder ROM Limitations Pain Comments Shoulder ER limited due to axillary pain, otherwise due to upper back pain. Reaching behind head mobility: T1 left, C7 right. PT-OP-M Strength Start: 06/02/18 09:39 Freq: Status: Active Protocol: Document 06/03/18 12:45 LRN (Rec: 06/03/18 14:42 LRN [id number]) Cervical Spine Strength Cervical Spine Manual Muscle Testing Reason Not Measured WFL Shoulder Strength Shoulder Manual Muscle Testing Right Reason Not Measured WFL Left Reason Not Measured WFL Elbow/Forearm Strength Elbow and Forearm Manual Muscle Testing Right Flexion (C6) 4 Good Extension (C7) 5 Normal Left Flexion (C6) 5 Normal Extension (C7) 5 Normal PT-OP-Q Treatments Start: 06/02/18 09:39 Freq: Status: Active Protocol: Document 06/03/18 12:45 LRN (Rec: 06/03/18 14:42 LRN [id number]) Self-Care/Home Management Treatment Education Patient Education Home Exercise Program Posture Other Education Discussed at length pt spinal anatomy, her condition and plan of care for minimizing effects of scoliosis and pain onset. Activities Self-Care/Home Management Activities Issued and reviewed HEP: R sidelie strengthening of L paraspinals to minimized muscle strain from scoliosis. PT-OP-T Assessment and Plan Start: 06/02/18 09:39 Freq: Status: Active Protocol: Document 06/03/18 12:45 LRN (Rec: 06/03/18 14:42 LRN [id number]) Physical Therapy Assessment Rehab Potential Rehabilitation Potential Good Evaluation Complexity Number of Personal Factors/Comorbidities 3 or More Number of Body Systems Impaired 4 or More Clinical Presentation at Evaluation Stable Impairments Impairments Activity Tolerance Pain Posture ROM Soft Tissue Mobility Strength Goals Four Impairment Decreased neck mobility Short Term Goal (STG) Pt will be independent with a HEP of neck mobility exercises . STG Duration 06/10/18 Three Impairment Decreased shoulder mobility Short Term Goal (STG) Pt will be independent with a HEP of shoulder mobility exercises. STG Duration 06/17/18 Two Impairment L upper back pain rated 5/10. Fdc Goal (LTG) Pt will be able to reach overhead with L upper back pain no greater than 3/10. LTG Duration 07/21/18. One Impairment Pt lacks appropriate self care program. Glue Sprayer Goal (LTG) Pt will be independent on an self care HEP to manage her back pain. LTG Duration 07/21/18. Assessment Summary Assessment Pt presents with severe mechanical and soft tissue dysfunction of the spine with upper back pain related to mechanical dysfunction of the thoracic spine and weakness of the left upper back musculature. The pt is limited in cervical mobility resulting in L upper back radiculopathy with end-range cervical sidebend, indicating a neurological component to her left upper back pain. The pt will benefit from skilled physical therapy of mobility and strengthening exercises of the neck, shoulder and upper back. Rehabilitation may be prolonged due to the severity of the pt's scoliosis and chronicity of her pain. Physical Therapy Plan Frequency and Duration Frequency of Treatment 2x/Week Plan of Care Start Date 06/03/18 Plan of Care End Date 07/21/19 Therapeutic Interventions Therapeutic Interventions Home Exercise Program Manual Therapy Neuromuscular Re-education Patient/Caregiver Education Self-Care/Home Management Soft Tissue Mobilization Taping Therapeutic Exercises Modalities Cold Pack/Ice Massage Electric Stimulation Hot Packs Infrared Therapy Ultrasound Next Visit Focus/Plan Next Note Type Treatment Note Next Visit Plan Pt to complete ABC Questionnaire. Start with review of HEP last issued. Add L upper back (paraspinal) strengthening ex's (sitting row with L side), neck stretches and general anterior trunk extension stretch ( supine lying to open chest); end with STM to L paraspinals to decrease pain and R paraspinals to lengthen. Progress towards stretching shoulders and R upper thoracic paraspinals; continue strengthening L upper paraspinals. End cryotherapy or MH/IFES.
--- NOTE | 2018-06-03 15:08 | PT.OPPOC ---
Current Diagnoses Pain in right shoulder (06/03/18) Provider Visit Care Team Role Provider Type Charles Castaneda MD Family Provider Physician Primary Care Provider Specialty: Internal Medicine Address: [address] [place] [address], [id number] Email: [email or web address] Timbo Portillo MD Attending Provider Physician Specialty: Orthopedic Surgery Address: [address] [place] [address], [id number] Email: [email or web address] Plan Of Care PT-OP-T Assessment and Plan Start: 06/02/18 09:39 Freq: Status: Active Protocol: Document 06/03/18 12:45 LRN (Rec: 06/03/18 14:42 LRN [id number]) Physical Therapy Assessment Rehab Potential Rehabilitation Potential Good Evaluation Complexity Number of Personal Factors/Comorbidities 3 or More Number of Body Systems Impaired 4 or More Clinical Presentation at Evaluation Stable Impairments Impairments Activity Tolerance Pain Posture ROM Soft Tissue Mobility Strength Goals Four Impairment Decreased neck mobility Short Term Goal (STG) Pt will be independent with a HEP of neck mobility exercises . STG Duration 06/10/18 Three Impairment Decreased shoulder mobility Short Term Goal (STG) Pt will be independent with a HEP of shoulder mobility exercises. STG Duration 06/17/18 Two Impairment L upper back pain rated 5/10. Prescriptionist Goal (LTG) Pt will be able to reach overhead with L upper back pain no greater than 3/10. LTG Duration 07/21/18. One Impairment Pt lacks appropriate self care program. Prescriptionist Goal (LTG) Pt will be independent on an self care HEP to manage her back pain. LTG Duration 07/21/18. Assessment Summary Assessment Pt presents with severe mechanical and soft tissue dysfunction of the spine with upper back pain related to mechanical dysfunction of the thoracic spine and weakness of the left upper back musculature. The pt is limited in cervical mobility resulting in L upper back radiculopathy with end-range cervical sidebend, indicating a neurological component to her left upper back pain. The pt will benefit from skilled physical therapy of mobility and strengthening exercises of the neck, shoulder and upper back. Rehabilitation may be prolonged due to the severity of the pt's scoliosis and chronicity of her pain. Physical Therapy Plan Frequency and Duration Frequency of Treatment 2x/Week Plan of Care Start Date 06/03/18 Plan of Care End Date 07/21/19 Therapeutic Interventions Therapeutic Interventions Home Exercise Program Manual Therapy Neuromuscular Re-education Patient/Caregiver Education Self-Care/Home Management Soft Tissue Mobilization Taping Therapeutic Exercises Modalities Cold Pack/Ice Massage Electric Stimulation Hot Packs Infrared Therapy Ultrasound Next Visit Focus/Plan Next Note Type Treatment Note Next Visit Plan Pt to complete ABC Questionnaire. Start with review of HEP last issued. Add L upper back (paraspinal) strengthening ex's (sitting row with L side), neck stretches and general anterior trunk extension stretch ( supine lying to open chest); end with STM to L paraspinals to decrease pain and R paraspinals to lengthen. Progress towards stretching shoulders and R upper thoracic paraspinals; continue strengthening L upper paraspinals. End cryotherapy or MH/IFES. Plan of Care Dates Plan of Care Start Date 06/03/18 Plan of Care End Date 07/21/19 Please Sign and Return: I have reviewed this Plan of Care and certify that the skilled therapy services above are required to meet the patient?s needs. Physician Signature Date Printed Name and Credentials Clinical Instructor Signature Printed Name and Credentials
--- NOTE | 2018-06-07 15:29 | PT.OTN ---
Current Diagnoses Pain in right shoulder (06/07/18) Physical Therapy Treatment Note PT-OP-A Visit Information Start: 06/02/18 09:39 Freq: Status: Active Protocol: Document 06/07/18 15:16 SA (Rec: 06/07/18 15:28 SA [email or web address]) Out-Patient Physical Therapy Visit Information Visit Information Visit Type Treatment Note Visit Start Time 12:15 Visit Stop Time 13:05 Total Visit Minutes 50 Visit Number 2 Number of LEADERSHIP RECRUITER Visits 1 PT-OP-B Current Condition Start: 06/02/18 09:39 Freq: Status: Active Protocol: Document 06/03/18 12:45 LRN (Rec: 06/03/18 14:42 LRN [id number]) Current Condition History of Current Condition Onset Date 2 yrs ago Current Complaints Constant L>R upper back pain that worsens when using arms. History of Current Condition Pt has severe idopathic scoliosis of the spine with ongoing neck and back pain. She states she has had back pain for years but due to a recent L1 compression fracture followed by a shelter stay, Dr. Mendoza referred her to Dr. Portillo, who then referred her to Dr. Thompson. She states Dr Jeanette Thompson wants her to get a neck stretch program and he will give her trigger point injections starting next month . Prior Treatments and Tests X-rays: Results unavailable. 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 Future Testing and Treatments Planned Trigger point injections by Dr Jeanette Thompson. Treatment Goals Patient/Caregiver Goals Pt goal is to be taught neck stretch ex's and to get pain relief. She would like to be able to reach overhead with less discomfort (pain level no greater than 3/10). She states currently her pain level is 5/10. Prior Functional Status Baseline Function- ADL's Independent Baseline Function- Mobility Independent Baseline Function- Work/School Limited with lifting no more than 10# due to osteoporosis. Current Functional Impairments (Reported) Functional Limitations- ADL's Increased upper back pain (L>R ) with reaching overhead. Personal Factors Other Personal Factors That May Effect Age (77). Therapy/Recovery Co-morbidities: Osteoporosis, Idiopathic Scoliosis, Stress induced cardiomyopathy, R distal radius fracture, L1 compression fracture. Lives alone. Granddaughter ( 12 yrs old) helps her 4 days/ week. 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 Patient Reported Progress Same PT-OP-F Manual Assessment Start: 06/02/18 09:39 Freq: Status: Active Protocol: Document 06/03/18 12:45 LRN (Rec: 06/03/18 14:42 LRN [id number]) Manual Assessments Soft Tissue Assessment Soft Tissue Mobility Assessment Tender with increased soft tissue tension at L upper back . Tenderness of L upper thoracic and mid thoracic paraspinal musculature. Joint Mobility Assessment Joint Mobility Assessment Decreased joint mobility of Cervical spine with L sidebend and L rotation. Decreased thoracic and lumbar joint mobility for extension. PT-OP-J Posture/Palpation/Skin Start: 06/02/18 09:39 Freq: Status: Active Protocol: Document 06/03/18 12:45 LRN (Rec: 06/03/18 14:42 LRN [id number]) Posture Evaluation Position Sitting Head/C-Spine Posture Forward Head T-Spine Posture Increased Kyphosis L-Spine Posture Flattened Decreased Lordosis Shoulder Posture (L) Rounded (R) Rounded (L) Elevated Arm Posture (L) Internally Rotated (R) Internally Rotated Pelvis Posture Posterior Tilted PT-OP-K Range of Motion Start: 06/02/18 09:39 Freq: Status: Active Protocol: Document 06/03/18 12:45 LRN (Rec: 06/03/18 14:42 LRN [id number]) Cervical Spine Range of Motion Cervical Spine Passive Percentage Rotation Left 10 Rotation Right 40 Lateral Flexion Left 10 Lateral Flexion Right 40 ROM Limitations Pain Shoulder Goniometric Range of Motion Shoulder Measured in Degrees Right Active Flexion 130 Abduction 120 Internal Rotation Behind Back (text) T 7 Left Active Testing Position Sitting Flexion 145 Abduction 110 Internal Rotation Behind Back (text) L 5 Shoulder ROM Limitations Shoulder ROM Limitations Pain Comments Shoulder ER limited due to axillary pain, otherwise due to upper back pain. Reaching behind head mobility: T1 left, C7 right. PT-OP-M Strength Start: 06/02/18 09:39 Freq: Status: Active Protocol: Document 06/03/18 12:45 LRN (Rec: 06/03/18 14:42 LRN [id number]) Cervical Spine Strength Cervical Spine Manual Muscle Testing Reason Not Measured WFL Shoulder Strength Shoulder Manual Muscle Testing Right Reason Not Measured WFL Left Reason Not Measured WFL Elbow/Forearm Strength Elbow and Forearm Manual Muscle Testing Right Flexion (C6) 4 Good Extension (C7) 5 Normal Left Flexion (C6) 5 Normal Extension (C7) 5 Normal PT-OP-Q Treatments Start: 06/02/18 09:39 Freq: Status: Active Protocol: Document 06/07/18 15:16 SA (Rec: 06/07/18 15:28 [email or web address]) Therapeutic Exercises Supine Exercises Thoracic EXT stretch Reps/Minutes 30 x 2 Sitting Exercises Cervical side bend stretch Side bilateral Reps/Minutes 30 x 2 1 Sitting Exercise Name seated row/scap retraction Side left Reps/Minutes 15 Standing Exercises Thoracic spine EXT stretch Side bilateral Reps/Minutes 30 x 2 Manual Therapy Treatment Soft Tissue Mobilization STM/MFR Body Location Upper thoracic paraspinals/ interscap Mobilization Type Cross-Friction Myofascial Release Rolling Intensity/Depth Moderate Comments Pt in side lying PT-OP-R Modalities Start: 06/02/18 09:39 Freq: Status: Active Protocol: Document 06/07/18 15:16 SA (Rec: 06/07/18 15:28 [email or web address]) Electric Stimulation Electric Stimulation IFC Body Location Upper thoracic Duration (Minutes) 15 Target/Sweep Sweep Patient Position Sidelying Combined With Heat/Cold Hot Pack PT-OP-T Assessment and Plan Start: 06/02/18 09:39 Freq: Status: Active Protocol: Document 06/07/18 15:16 (Rec: 06/07/18 15:28 [email or web address]) Physical Therapy Assessment Assessment Summary Assessment Pt with difficulty gaining neutral thoracic spine, focuesed stretching for thoracic Ext to neutral and cervical ROM work. Pt tolerated STM and E-stim well at end of session. Physical Therapy Plan Next Visit Focus/Plan Next Note Type Treatment Note Next Visit Plan Assess response to STM/Estim, Pt provided with HEP for stretches, review next session .
--- NOTE | 2018-06-10 09:04 | PT.OTN ---
Current Diagnoses Pain in right shoulder (06/10/18) Physical Therapy Treatment Note PT-OP-A Visit Information Start: 06/02/18 09:39 Freq: Status: Active Protocol: Document 06/10/18 08:55 SA (Rec: 06/10/18 09:04 SA [email or web address]) Out-Patient Physical Therapy Visit Information Visit Information Visit Type Treatment Note Visit Start Time 08:15 Visit Stop Time 09:02 Total Visit Minutes 47 Visit Number 3 Number of FINISHING DEPARTMENT SUPERVISOR Visits 2 PT-OP-B Current Condition Start: 06/02/18 09:39 Freq: Status: Active Protocol: Document 06/03/18 12:45 LRN (Rec: 06/03/18 14:42 LRN [id number]) Current Condition History of Current Condition Onset Date 2 yrs ago Current Complaints Constant L>R upper back pain that worsens when using arms. History of Current Condition Pt has severe idopathic scoliosis of the spine with ongoing neck and back pain. She states she has had back pain for years but due to a recent L1 compression fracture followed by a detention stay, Dr. Mendoza referred her to Dr. Portillo, who then referred her to Dr. Thompson. She states Dr Jeanette Thompson wants her to get a neck stretch program and he will give her trigger point injections starting next month . Prior Treatments and Tests X-rays: Results unavailable. 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 Future Testing and Treatments Planned Trigger point injections by Dr Jeanette Thompson. Treatment Goals Patient/Caregiver Goals Pt goal is to be taught neck stretch ex's and to get pain relief. She would like to be able to reach overhead with less discomfort (pain level no greater than 3/10). She states currently her pain level is 5/10. Prior Functional Status Baseline Function- ADL's Independent Baseline Function- Mobility Independent Baseline Function- Work/School Limited with lifting no more than 10# due to osteoporosis. Current Functional Impairments (Reported) Functional Limitations- ADL's Increased upper back pain (L>R ) with reaching overhead. Personal Factors Other Personal Factors That May Effect Age (77). Therapy/Recovery Co-morbidities: Osteoporosis, Idiopathic Scoliosis, Stress induced cardiomyopathy, R distal radius fracture, L1 compression fracture. Lives alone. Granddaughter ( 12 yrs old) helps her 4 days/ week. PT-OP-C Subjective Start: 06/02/18 09:39 Freq: Status: Active Protocol: Document 06/10/18 08:55 SA (Rec: 06/10/18 09:04 SA [email or web address]) OP-PT Subjective Patient Comments Patient Comments [place] some soreness after last visit from massage but improvement after. Doing the standing thoracic ext stretch and it is getting a little easier. Patient Reported Progress Improving PT-OP-F Manual Assessment Start: 06/02/18 09:39 Freq: Status: Active Protocol: Document 06/03/18 12:45 LRN (Rec: 06/03/18 14:42 LRN [id number]) Manual Assessments Soft Tissue Assessment Soft Tissue Mobility Assessment Tender with increased soft tissue tension at L upper back . Tenderness of L upper thoracic and mid thoracic paraspinal musculature. Joint Mobility Assessment Joint Mobility Assessment Decreased joint mobility of Cervical spine with L sidebend and L rotation. Decreased thoracic and lumbar joint mobility for extension. PT-OP-J Posture/Palpation/Skin Start: 06/02/18 09:39 Freq: Status: Active Protocol: Document 06/03/18 12:45 LRN (Rec: 06/03/18 14:42 LRN [id number]) Posture Evaluation Position Sitting Head/C-Spine Posture Forward Head T-Spine Posture Increased Kyphosis L-Spine Posture Flattened Decreased Lordosis Shoulder Posture (L) Rounded (R) Rounded (L) Elevated Arm Posture (L) Internally Rotated (R) Internally Rotated Pelvis Posture Posterior Tilted PT-OP-K Range of Motion Start: 06/02/18 09:39 Freq: Status: Active Protocol: Document 06/03/18 12:45 LRN (Rec: 06/03/18 14:42 LRN [id number]) Cervical Spine Range of Motion Cervical Spine Passive Percentage Rotation Left 10 Rotation Right 40 Lateral Flexion Left 10 Lateral Flexion Right 40 ROM Limitations Pain Shoulder Goniometric Range of Motion Shoulder Measured in Degrees Right Active Flexion 130 Abduction 120 Internal Rotation Behind Back (text) T 7 Left Active Testing Position Sitting Flexion 145 Abduction 110 Internal Rotation Behind Back (text) L 5 Shoulder ROM Limitations Shoulder ROM Limitations Pain Comments Shoulder ER limited due to axillary pain, otherwise due to upper back pain. Reaching behind head mobility: T1 left, C7 right. PT-OP-M Strength Start: 06/02/18 09:39 Freq: Status: Active Protocol: Document 06/03/18 12:45 LRN (Rec: 06/03/18 14:42 LRN [id number]) Cervical Spine Strength Cervical Spine Manual Muscle Testing Reason Not Measured WFL Shoulder Strength Shoulder Manual Muscle Testing Right Reason Not Measured WFL Left Reason Not Measured WFL Elbow/Forearm Strength Elbow and Forearm Manual Muscle Testing Right Flexion (C6) 4 Good Extension (C7) 5 Normal Left Flexion (C6) 5 Normal Extension (C7) 5 Normal PT-OP-Q Treatments Start: 06/02/18 09:39 Freq: Status: Active Protocol: Document 06/10/18 08:55 (Rec: 06/10/18 09:04 [email or web address]) Therapeutic Exercises Supine Exercises Thoracic EXT stretch Reps/Minutes 30 x 2 Comments in standing today Sitting Exercises Upper trap stretch Reps/Minutes 30 x 2 cerviacal rotations Side bilateral Reps/Minutes 20x Cervical side bend stretch Side bilateral Reps/Minutes 30 x 2 1 Sitting Exercise Name seated row/scap retraction Side left Resistance 2# Reps/Minutes 20 Manual Therapy Treatment Soft Tissue Mobilization STM/MFR Body Location Upper thoracic paraspinals/ interscap Mobilization Type Cross-Friction Myofascial Release Rolling Intensity/Depth Moderate Comments Seated with upper body support on bed PT-OP-R Modalities Start: 06/02/18 09:39 Freq: Status: Active Protocol: Document 06/10/18 08:55 (Rec: 06/10/18 09:04 [email or web address]) Electric Stimulation Electric Stimulation IFC Body Location Upper thoracic Duration (Minutes) 15 Target/Sweep Sweep Patient Position Sidelying Combined With Heat/Cold Hot Pack PT-OP-T Assessment and Plan Start: 06/02/18 09:39 Freq: Status: Active Protocol: Document 06/10/18 08:55 (Rec: 06/10/18 09:04 [email or web address]) Physical Therapy Assessment Progress Towards Goals Progress Towards Goals Progressing Toward Goals Assessment Summary Assessment Pt to continue with HEP, tolerating manual therapy and e-stim well, noting some decrease in pain overall. Physical Therapy Plan Next Visit Focus/Plan Next Note Type Treatment Note Next Visit Plan Progress stretching/ strengthening program, assess response to manual therapy.
--- NOTE | 2018-06-21 14:12 | PT.OTN ---
Current Diagnoses Pain in right shoulder (06/21/18) Physical Therapy Treatment Note PT-OP-A Visit Information Start: 06/02/18 09:39 Freq: Status: Active Protocol: Document 06/21/18 09:04 LRN (Rec: 06/21/18 09:52 LRN [id number]) Out-Patient Physical Therapy Visit Information Visit Information Visit Type Treatment Note Visit Note Extra time taken for positioning of patient. Pt moves slowly. Visit Start Time 09:04 Visit Stop Time 10:00 Total Visit Minutes 56 Visit Number 4 Number of MOLD MAKER PLASTIC MOLDS Visits 2 Evaluation Information Evaluation Date 06/03/18 PT-OP-B Current Condition Start: 06/02/18 09:39 Freq: Status: Active Protocol: Document 06/03/18 12:45 LRN (Rec: 06/03/18 14:42 LRN [id number]) Current Condition History of Current Condition Onset Date 2 yrs ago Current Complaints Constant L>R upper back pain that worsens when using arms. History of Current Condition Pt has severe idopathic scoliosis of the spine with ongoing neck and back pain. She states she has had back pain for years but due to a recent L1 compression fracture followed by a senior care stay, Dr. Mendoza referred her to Dr. Portillo, who then referred her to Dr. Thompson. She states Dr Jeanette Thompson wants her to get a neck stretch program and he will give her trigger point injections starting next month . Prior Treatments and Tests X-rays: Results unavailable. 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 Future Testing and Treatments Planned Trigger point injections by Dr Jeanette Thompson. Treatment Goals Patient/Caregiver Goals Pt goal is to be taught neck stretch ex's and to get pain relief. She would like to be able to reach overhead with less discomfort (pain level no greater than 3/10). She states currently her pain level is 5/10. Prior Functional Status Baseline Function- ADL's Independent Baseline Function- Mobility Independent Baseline Function- Work/School Limited with lifting no more than 10# due to osteoporosis. Current Functional Impairments (Reported) Functional Limitations- ADL's Increased upper back pain (L>R ) with reaching overhead. Personal Factors Other Personal Factors That May Effect Age (77). Therapy/Recovery Co-morbidities: Osteoporosis, Idiopathic Scoliosis, Stress induced cardiomyopathy, R distal radius fracture, L1 compression fracture. Lives alone. Granddaughter ( 12 yrs old) helps her 4 days/ week. PT-OP-C Subjective Start: 06/02/18 09:39 Freq: Status: Active Protocol: Document 06/21/18 09:04 LRN (Rec: 06/21/18 09:52 LRN [id number]) OP-PT Subjective Patient Comments Patient Comments Pain reaching overhead is 5/10 . Worst pain is on waking is 8/10. No change with therapy. PT-OP-F Manual Assessment Start: 06/02/18 09:39 Freq: Status: Active Protocol: Document 06/03/18 12:45 LRN (Rec: 06/03/18 14:42 LRN [id number]) Manual Assessments Soft Tissue Assessment Soft Tissue Mobility Assessment Tender with increased soft tissue tension at L upper back . Tenderness of L upper thoracic and mid thoracic paraspinal musculature. Joint Mobility Assessment Joint Mobility Assessment Decreased joint mobility of Cervical spine with L sidebend and L rotation. Decreased thoracic and lumbar joint mobility for extension. PT-OP-J Posture/Palpation/Skin Start: 06/02/18 09:39 Freq: Status: Active Protocol: Document 06/03/18 12:45 LRN (Rec: 06/03/18 14:42 LRN [id number]) Posture Evaluation Position Sitting Head/C-Spine Posture Forward Head T-Spine Posture Increased Kyphosis L-Spine Posture Flattened Decreased Lordosis Shoulder Posture (L) Rounded (R) Rounded (L) Elevated Arm Posture (L) Internally Rotated (R) Internally Rotated Pelvis Posture Posterior Tilted PT-OP-K Range of Motion Start: 06/02/18 09:39 Freq: Status: Active Protocol: Document 06/03/18 12:45 LRN (Rec: 06/03/18 14:42 LRN [id number]) Cervical Spine Range of Motion Cervical Spine Passive Percentage Rotation Left 10 Rotation Right 40 Lateral Flexion Left 10 Lateral Flexion Right 40 ROM Limitations Pain Shoulder Goniometric Range of Motion Shoulder Measured in Degrees Right Active Flexion 130 Abduction 120 Internal Rotation Behind Back (text) T 7 Left Active Testing Position Sitting Flexion 145 Abduction 110 Internal Rotation Behind Back (text) L 5 Shoulder ROM Limitations Shoulder ROM Limitations Pain Comments Shoulder ER limited due to axillary pain, otherwise due to upper back pain. Reaching behind head mobility: T1 left, C7 right. PT-OP-M Strength Start: 06/02/18 09:39 Freq: Status: Active Protocol: Document 06/03/18 12:45 LRN (Rec: 06/03/18 14:42 LRN [id number]) Cervical Spine Strength Cervical Spine Manual Muscle Testing Reason Not Measured WFL Shoulder Strength Shoulder Manual Muscle Testing Right Reason Not Measured WFL Left Reason Not Measured WFL Elbow/Forearm Strength Elbow and Forearm Manual Muscle Testing Right Flexion (C6) 4 Good Extension (C7) 5 Normal Left Flexion (C6) 5 Normal Extension (C7) 5 Normal PT-OP-Q Treatments Start: 06/02/18 09:39 Freq: Status: Active Protocol: Document 06/21/18 09:04 LRN (Rec: 06/21/18 09:52 LRN [id number]) Therapeutic Exercises Supine Exercises Thoracic EXT stretch Supine Exercise Name Sup with Wei BKFO and arms in neutral/ER Reps/Minutes 3' Sidelying Exercises R LB strengthening Sidelying Exercise Name L sidelie: R Hip AB Hold L arm lift with scapular retract Sidelying Exercise Name L interscapular strengthening Reps/Minutes 10x2 Sitting Exercises Upper trap stretch Side left Reps/Minutes 30 x 2 cerviacal rotations Side right Reps/Minutes 20x 2 Sitting Exercise Name u 1 Sitting Exercise Name seated row/scap retraction Side left Resistance 2# Reps/Minutes 20 Standing Exercises R Lumbar strengthening Standing Exercise Name R Hip AB Reps/Minutes 8x3 Comments [place] on to support on Left . L intrascapular strengthening Standing Exercise Name Row Side left Resistance Lev 1 Equipment Used T-Band Reps/Minutes 10x3 Thoracic spine EXT stretch Standing Exercise Name Standing against wall Side bilateral Reps/Minutes 30 x 2 Self-Care/Home Management Treatment Education Patient Education Home Exercise Program Other Education Reviewed and issued HEP for Sidelie ex: L arm lift and R leg lift. Verbal I/S for Cervical R rot and L SB PT-OP-R Modalities Start: 06/02/18 09:39 Freq: Status: Active Protocol: Document 06/21/18 09:04 LRN (Rec: 06/21/18 10:18 LRN [id number]) Electric Stimulation Electric Stimulation IFC Body Location Upper thoracic Duration (Minutes) 15 Target/Sweep Sweep Patient Position Sidelying Combined With Heat/Cold Hot Pack Comments R sidelye PT-OP-T Assessment and Plan Start: 06/02/18 09:39 Freq: Status: Active Protocol: Document 06/21/18 09:04 LRN (Rec: 06/21/18 09:52 LRN [id number]) Physical Therapy Assessment Goals Four Impairment Decreased neck mobility Short Term Goal (STG) Pt will be independent with a HEP of neck mobility exercises . STG Duration 06/10/18 Three Impairment Decreased shoulder mobility Short Term Goal (STG) Pt will be independent with a HEP of shoulder mobility exercises. STG Duration 06/17/18 Two Impairment L upper back pain rated 5/10. Fish Bailer Goal (LTG) Pt will be able to reach overhead with L upper back pain no greater than 3/10. LTG Duration 07/21/18. One Impairment Pt lacks appropriate self care program. Correction Goal (LTG) Pt will be independent on an self care HEP to manage her back pain. LTG Duration 07/21/18. Assessment Summary Assessment + response to E-Stim & STM. Tolerating exercise well. Pt presents with severe mechanical and soft tissue dysfunction of the spine with upper back pain related to mechanical dysfunction of the thoracic spine and weakness of the left upper back musculature. The pt is limited in cervical mobility resulting in L upper back radiculopathy with end-range cervical sidebend, indicating a neurological component to her left upper back pain. Physical Therapy Plan Frequency and Duration Frequency of Treatment 2x/Week Plan of Care Start Date 06/03/18 Plan of Care End Date 07/21/19 Next Visit Focus/Plan Next Note Type Treatment Note Next Visit Plan Progress stretching, strengthening program. Start Thoracic ext in supine and progress onto DLS program.
--- NOTE | 2018-06-27 15:08 | PT.OTN ---
Current Diagnoses Pain in right shoulder (06/27/18) Physical Therapy Treatment Note PT-OP-A Visit Information Start: 06/02/18 09:39 Freq: Status: Active Protocol: Document 06/27/18 09:03 LRN (Rec: 06/27/18 09:48 LRN [id number]) Out-Patient Physical Therapy Visit Information Visit Information Visit Type Treatment Note Visit Start Time 09:03 Visit Stop Time 09:48 Total Visit Minutes 45 Visit Number 6 Number of CATTLE RANCHER Visits 0 Evaluation Information Evaluation Date 06/03/18 PT-OP-B Current Condition Start: 06/02/18 09:39 Freq: Status: Active Protocol: Document 06/03/18 12:45 LRN (Rec: 06/03/18 14:42 LRN [id number]) Current Condition History of Current Condition Onset Date 2 yrs ago Current Complaints Constant L>R upper back pain that worsens when using arms. History of Current Condition Pt has severe idopathic scoliosis of the spine with ongoing neck and back pain. She states she has had back pain for years but due to a recent L1 compression fracture followed by a care home stay, Dr. Mendoza referred her to Dr. Portillo, who then referred her to Dr. Thompson. She states Dr Jeanette Thompson wants her to get a neck stretch program and he will give her trigger point injections starting next month . Prior Treatments and Tests X-rays: Results unavailable. 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 Future Testing and Treatments Planned Trigger point injections by Dr Jeanette Thompson. Treatment Goals Patient/Caregiver Goals Pt goal is to be taught neck stretch ex's and to get pain relief. She would like to be able to reach overhead with less discomfort (pain level no greater than 3/10). She states currently her pain level is 5/10. Prior Functional Status Baseline Function- ADL's Independent Baseline Function- Mobility Independent Baseline Function- Work/School Limited with lifting no more than 10# due to osteoporosis. Current Functional Impairments (Reported) Functional Limitations- ADL's Increased upper back pain (L>R ) with reaching overhead. Personal Factors Other Personal Factors That May Effect Age (77). Therapy/Recovery Co-morbidities: Osteoporosis, Idiopathic Scoliosis, Stress induced cardiomyopathy, R distal radius fracture, L1 compression fracture. Lives alone. Granddaughter ( 12 yrs old) helps her 4 days/ week. PT-OP-C Subjective Start: 06/02/18 09:39 Freq: Status: Active Protocol: Document 06/27/18 09:03 LRN (Rec: 06/27/18 09:48 LRN [id number]) OP-PT Subjective Patient Comments Patient Comments Lafter last session was good. No increase in pain. Worked hard. Overall has improved, can get 1/3 of back against the wall with standing, initially could hardly get back up against the wall. PT-OP-F Manual Assessment Start: 06/02/18 09:39 Freq: Status: Active Protocol: Document 06/03/18 12:45 LRN (Rec: 06/03/18 14:42 LRN [id number]) Manual Assessments Soft Tissue Assessment Soft Tissue Mobility Assessment Tender with increased soft tissue tension at L upper back . Tenderness of L upper thoracic and mid thoracic paraspinal musculature. Joint Mobility Assessment Joint Mobility Assessment Decreased joint mobility of Cervical spine with L sidebend and L rotation. Decreased thoracic and lumbar joint mobility for extension. PT-OP-J Posture/Palpation/Skin Start: 06/02/18 09:39 Freq: Status: Active Protocol: Document 06/03/18 12:45 LRN (Rec: 06/03/18 14:42 LRN [id number]) Posture Evaluation Position Sitting Head/C-Spine Posture Forward Head T-Spine Posture Increased Kyphosis L-Spine Posture Flattened Decreased Lordosis Shoulder Posture (L) Rounded (R) Rounded (L) Elevated Arm Posture (L) Internally Rotated (R) Internally Rotated Pelvis Posture Posterior Tilted PT-OP-K Range of Motion Start: 06/02/18 09:39 Freq: Status: Active Protocol: Document 06/03/18 12:45 LRN (Rec: 06/03/18 14:42 LRN [id number]) Cervical Spine Range of Motion Cervical Spine Passive Percentage Rotation Left 10 Rotation Right 40 Lateral Flexion Left 10 Lateral Flexion Right 40 ROM Limitations Pain Shoulder Goniometric Range of Motion Shoulder Measured in Degrees Right Active Flexion 130 Abduction 120 Internal Rotation Behind Back (text) T 7 Left Active Testing Position Sitting Flexion 145 Abduction 110 Internal Rotation Behind Back (text) L 5 Shoulder ROM Limitations Shoulder ROM Limitations Pain Comments Shoulder ER limited due to axillary pain, otherwise due to upper back pain. Reaching behind head mobility: T1 left, C7 right. PT-OP-M Strength Start: 06/02/18 09:39 Freq: Status: Active Protocol: Document 06/03/18 12:45 LRN (Rec: 06/03/18 14:42 LRN [id number]) Cervical Spine Strength Cervical Spine Manual Muscle Testing Reason Not Measured WFL Shoulder Strength Shoulder Manual Muscle Testing Right Reason Not Measured WFL Left Reason Not Measured WFL Elbow/Forearm Strength Elbow and Forearm Manual Muscle Testing Right Flexion (C6) 4 Good Extension (C7) 5 Normal Left Flexion (C6) 5 Normal Extension (C7) 5 Normal PT-OP-Q Treatments Start: 06/02/18 09:39 Freq: Status: Active Protocol: Document 06/27/18 09:03 LRN (Rec: 06/27/18 09:48 LRN [id number]) Therapeutic Exercises Supine Exercises Full body extension Supine Exercise Name Training for arching back Side bilateral Reps/Minutes 4 Comments Pt unable to perform Full body ext Supine Exercise Name Training for lumbar ext Reps/Minutes 3' Thoracic EXT stretch Supine Exercise Name Sup with Wei BKFO and arms in neutral/ER Reps/Minutes 3' Sitting Exercises End-range shoulder flexion Side right Resistance Lev 1 T-Band Reps/Minutes 10x3 Upper trap stretch Side right Reps/Minutes 30 x 2 Comments Focus this week to dec: L UT tight due to elevated L shoulder cerviacal rotations Side bilateral Reps/Minutes 20x Cervical side bend stretch Sitting Exercise Name SB head to Left Side right Reps/Minutes 30 x 2 1 Sitting Exercise Name seated row/scap retraction Side left Resistance Lev 1 T-Band Reps/Minutes 30x Standing Exercises R Lumbar strengthening Standing Exercise Name R Hip AB Reps/Minutes 10x3 Comments Pushing up on L arm support Thoracic spine EXT stretch Standing Exercise Name Standing against wall Side bilateral Reps/Minutes 30 x 2 Self-Care/Home Management Treatment Education Patient Education Home Exercise Program Other Education Verbal I/S to practice full body ext in supine. PT-OP-R Modalities Start: 06/02/18 09:39 Freq: Status: Active Protocol: Document 06/27/18 09:03 LRN (Rec: 06/27/18 09:48 LRN [id number]) Electric Stimulation Electric Stimulation IFC Body Location Upper thoracic Duration (Minutes) 10 Target/Sweep Sweep Patient Position Sidelying Combined With Heat/Cold Hot Pack Comments Back: MHP upper back; CP low back. PT-OP-T Assessment and Plan Start: 06/02/18 09:39 Freq: Status: Active Protocol: Document 06/27/18 09:03 LRN (Rec: 06/27/18 09:48 LRN [id number]) Physical Therapy Assessment Progress Towards Goals Progress Towards Goals Progressing Toward Goals Progress Comments Pt able to walk and look forward vs at her feet. Assessment Summary Assessment C. rotation is 50 deg's bilaterally. + response to upper back ex's in sitting vs standing. Pt unable to activate lumbar paraspinals for full body extension, further training is needed. Physical Therapy Plan Frequency and Duration Frequency of Treatment 2x/Week Plan of Care Start Date 06/03/18 Plan of Care End Date 07/21/19 Next Visit Focus/Plan Next Note Type Treatment Note Next Visit Plan Possibly 1x/week for 3 weeks) following injection if MD recommends. Assess for cervical involvement with upper back pain and cont STM. Progress stretching, strengthening program (in best position: stand vs sit). Progress onto DLS program & progress lumbar/thoracic ext program.
--- NOTE | 2018-06-30 13:16 | PT.OTN ---
Current Diagnoses Pain in right shoulder (06/30/18) Physical Therapy Treatment Note PT-OP-A Visit Information Start: 06/02/18 09:39 Freq: Status: Active Protocol: Document 06/30/18 10:32 LRN (Rec: 06/30/18 11:13 LRN [id number]) Out-Patient Physical Therapy Visit Information Visit Information Visit Type Treatment Note Visit Start Time 10:32 Visit Stop Time 11:25 Total Visit Minutes 53 Visit Number 7 Number of CHANGE MANAGEMENT SPECIALIST Visits 0 Evaluation Information Evaluation Date 06/03/18 PT-OP-B Current Condition Start: 06/02/18 09:39 Freq: Status: Active Protocol: Document 06/03/18 12:45 LRN (Rec: 06/03/18 14:42 LRN [id number]) Current Condition History of Current Condition Onset Date 2 yrs ago Current Complaints Constant L>R upper back pain that worsens when using arms. History of Current Condition Pt has severe idopathic scoliosis of the spine with ongoing neck and back pain. She states she has had back pain for years but due to a recent L1 compression fracture followed by a shelter stay, Dr. Mendoza referred her to Dr. Portillo, who then referred her to Dr. Thompson. She states Dr Jeanette Thompson wants her to get a neck stretch program and he will give her trigger point injections starting next month . Prior Treatments and Tests X-rays: Results unavailable. 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 Future Testing and Treatments Planned Trigger point injections by Dr Jeanette Thompson. Treatment Goals Patient/Caregiver Goals Pt goal is to be taught neck stretch ex's and to get pain relief. She would like to be able to reach overhead with less discomfort (pain level no greater than 3/10). She states currently her pain level is 5/10. Prior Functional Status Baseline Function- ADL's Independent Baseline Function- Mobility Independent Baseline Function- Work/School Limited with lifting no more than 10# due to osteoporosis. Current Functional Impairments (Reported) Functional Limitations- ADL's Increased upper back pain (L>R ) with reaching overhead. Personal Factors Other Personal Factors That May Effect Age (77). Therapy/Recovery Co-morbidities: Osteoporosis, Idiopathic Scoliosis, Stress induced cardiomyopathy, R distal radius fracture, L1 compression fracture. Lives alone. Granddaughter ( 12 yrs old) helps her 4 days/ week. PT-OP-C Subjective Start: 06/02/18 09:39 Freq: Status: Active Protocol: Document 06/27/18 09:03 LRN (Rec: 06/27/18 09:48 LRN [id number]) OP-PT Subjective Patient Comments Patient Comments Lafter last session was good. No increase in pain. Worked hard. Overall has improved, can get 1/3 of back against the wall with standing, initially could hardly get back up against the wall. PT-OP-F Manual Assessment Start: 06/02/18 09:39 Freq: Status: Active Protocol: Document 06/03/18 12:45 LRN (Rec: 06/03/18 14:42 LRN [id number]) Manual Assessments Soft Tissue Assessment Soft Tissue Mobility Assessment Tender with increased soft tissue tension at L upper back . Tenderness of L upper thoracic and mid thoracic paraspinal musculature. Joint Mobility Assessment Joint Mobility Assessment Decreased joint mobility of Cervical spine with L sidebend and L rotation. Decreased thoracic and lumbar joint mobility for extension. PT-OP-J Posture/Palpation/Skin Start: 06/02/18 09:39 Freq: Status: Active Protocol: Document 06/03/18 12:45 LRN (Rec: 06/03/18 14:42 LRN [id number]) Posture Evaluation Position Sitting Head/C-Spine Posture Forward Head T-Spine Posture Increased Kyphosis L-Spine Posture Flattened Decreased Lordosis Shoulder Posture (L) Rounded (R) Rounded (L) Elevated Arm Posture (L) Internally Rotated (R) Internally Rotated Pelvis Posture Posterior Tilted PT-OP-K Range of Motion Start: 06/02/18 09:39 Freq: Status: Active Protocol: Document 06/03/18 12:45 LRN (Rec: 06/03/18 14:42 LRN [id number]) Cervical Spine Range of Motion Cervical Spine Passive Percentage Rotation Left 10 Rotation Right 40 Lateral Flexion Left 10 Lateral Flexion Right 40 ROM Limitations Pain Shoulder Goniometric Range of Motion Shoulder Measured in Degrees Right Active Flexion 130 Abduction 120 Internal Rotation Behind Back (text) T 7 Left Active Testing Position Sitting Flexion 145 Abduction 110 Internal Rotation Behind Back (text) L 5 Shoulder ROM Limitations Shoulder ROM Limitations Pain Comments Shoulder ER limited due to axillary pain, otherwise due to upper back pain. Reaching behind head mobility: T1 left, C7 right. PT-OP-M Strength Start: 06/02/18 09:39 Freq: Status: Active Protocol: Document 06/03/18 12:45 LRN (Rec: 06/03/18 14:42 LRN [id number]) Cervical Spine Strength Cervical Spine Manual Muscle Testing Reason Not Measured WFL Shoulder Strength Shoulder Manual Muscle Testing Right Reason Not Measured WFL Left Reason Not Measured WFL Elbow/Forearm Strength Elbow and Forearm Manual Muscle Testing Right Flexion (C6) 4 Good Extension (C7) 5 Normal Left Flexion (C6) 5 Normal Extension (C7) 5 Normal PT-OP-Q Treatments Start: 06/02/18 09:39 Freq: Status: Active Protocol: Document 06/30/18 10:32 LRN (Rec: 06/30/18 11:13 LRN [id number]) Therapeutic Exercises Supine Exercises Full body extension Supine Exercise Name Arching upper back, and pressing arms into table Side bilateral Reps/Minutes 3' Comments Knees bent Full body ext Supine Exercise Name Training for lumbar ext Reps/Minutes 3' Thoracic EXT stretch Supine Exercise Name Sup with Wei BKFO and arms in neutral/ER Reps/Minutes 3' Comments Pressing arms into table. Sidelying Exercises R LB strengthening Sidelying Exercise Name L sidelie: R Hip Francisco Hold with ext Reps/Minutes 5' Comments Assist needed to move R LE. Pt unable to hold in AB Sitting Exercises End-range shoulder flexion Side right Resistance Lev 1 T-Band Reps/Minutes 10x3 Upper trap stretch Side right Reps/Minutes 30 x 2 Comments Focus this week to dec: L UT tight due to elevated L shoulder cerviacal rotations Side bilateral Reps/Minutes 20x Cervical side bend stretch Sitting Exercise Name SB head to Left Side right Reps/Minutes 30 x 2 1 Sitting Exercise Name seated row/scap retraction Side left Resistance Lev 2 T-Band Reps/Minutes 60x Standing Exercises Balance Standing Exercise Name SLS left holding RLE out to side R Lumbar strengthening Standing Exercise Name R Hip AB Side right Reps/Minutes 10x3 Comments Pushing up on L arm support Self-Care/Home Management Treatment Education Patient Education Home Exercise Program Other Education Verbal I/S to practice full body ext, pushing arms into surface, in supine. PT-OP-R Modalities Start: 06/02/18 09:39 Freq: Status: Active Protocol: Document 06/30/18 10:32 LRN (Rec: 06/30/18 11:13 LRN [id number]) Electric Stimulation Electric Stimulation IFC Body Location Upper thoracic Duration (Minutes) 10 Target/Sweep Sweep Patient Position Supine Combined With Heat/Cold Cold Pack Comments Back: CP upper back. PT-OP-T Assessment and Plan Start: 06/02/18 09:39 Freq: Status: Active Protocol: Document 06/30/18 10:32 LRN (Rec: 06/30/18 11:13 LRN [id number]) Physical Therapy Assessment Assessment Summary Assessment Assess response to using cryotherapy to Upper Back vs MHP. Physical Therapy Plan Frequency and Duration Frequency of Treatment 2x/Week Plan of Care Start Date 06/03/18 Plan of Care End Date 07/21/19 Next Visit Focus/Plan Next Note Type Treatment Note Next Visit Plan Assess for cervical involvement with upper back pain add STM as needed for pain management. Progress stretching, strengthening program (progressing to standing ex's when appropriate ) for kyphosis correction. Progress onto DLS program & progress lumbar/thoracic ext program. Continue 2x/week per MD instructions given to pt following injection.
--- NOTE | 2018-07-05 11:22 | PT.OTN ---
Current Diagnoses Pain in right shoulder (07/05/18) Physical Therapy Treatment Note PT-OP-A Visit Information Start: 06/02/18 09:39 Freq: Status: Active Protocol: Document 07/05/18 11:10 SA (Rec: 07/05/18 11:22 SA [id number]) Out-Patient Physical Therapy Visit Information Visit Information Visit Type Treatment Note Visit Start Time 09:45 Visit Stop Time 10:35 Total Visit Minutes 50 Visit Number 8 Number of VARNISH MAKER Visits 1 PT-OP-B Current Condition Start: 06/02/18 09:39 Freq: Status: Active Protocol: Document 06/03/18 12:45 LRN (Rec: 06/03/18 14:42 LRN [id number]) Current Condition History of Current Condition Onset Date 2 yrs ago Current Complaints Constant L>R upper back pain that worsens when using arms. History of Current Condition Pt has severe idopathic scoliosis of the spine with ongoing neck and back pain. She states she has had back pain for years but due to a recent L1 compression fracture [facility], Dr. Mendoza referred her to Dr. Portillo, who then referred her to Dr. Thompson. She states Dr Jeanette Thompson wants her to get a neck stretch program and he will give her trigger point injections starting next month . Prior Treatments and Tests X-rays: Results unavailable. 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 Future Testing and Treatments Planned Trigger point injections by Dr Jeanette Thompson. Treatment Goals Patient/Caregiver Goals Pt goal is to be taught neck stretch ex's and to get pain relief. She would like to be able to reach overhead with less discomfort (pain level no greater than 3/10). She states currently her pain level is 5/10. Prior Functional Status Baseline Function- ADL's Independent Baseline Function- Mobility Independent Baseline Function- Work/School Limited with lifting no more than 10# due to osteoporosis. Current Functional Impairments (Reported) Functional Limitations- ADL's Increased upper back pain (L>R ) with reaching overhead. Personal Factors Other Personal Factors That May Effect Age (77). Therapy/Recovery Co-morbidities: Osteoporosis, Idiopathic Scoliosis, Stress induced cardiomyopathy, R distal radius fracture, L1 compression fracture. Lives alone. Granddaughter ( 12 yrs old) helps her 4 days/ week. PT-OP-C Subjective Start: 06/02/18 09:39 Freq: Status: Active Protocol: Document 07/05/18 11:10 SA (Rec: 07/05/18 11:22 SA [id number]) OP-PT Subjective Patient Comments Patient Comments Had injection yesterday and had significantly less pain this morning. Supine and standing extension exercises seem to be helping and I do these daily. PT-OP-F Manual Assessment Start: 06/02/18 09:39 Freq: Status: Active Protocol: Document 06/03/18 12:45 LRN (Rec: 06/03/18 14:42 LRN [id number]) Manual Assessments Soft Tissue Assessment Soft Tissue Mobility Assessment Tender with increased soft tissue tension at L upper back . Tenderness of L upper thoracic and mid thoracic paraspinal musculature. Joint Mobility Assessment Joint Mobility Assessment Decreased joint mobility of Cervical spine with L sidebend and L rotation. Decreased thoracic and lumbar joint mobility for extension. PT-OP-J Posture/Palpation/Skin Start: 06/02/18 09:39 Freq: Status: Active Protocol: Document 06/03/18 12:45 LRN (Rec: 06/03/18 14:42 LRN [id number]) Posture Evaluation Position Sitting Head/C-Spine Posture Forward Head T-Spine Posture Increased Kyphosis L-Spine Posture Flattened Decreased Lordosis Shoulder Posture (L) Rounded (R) Rounded (L) Elevated Arm Posture (L) Internally Rotated (R) Internally Rotated Pelvis Posture Posterior Tilted PT-OP-K Range of Motion Start: 06/02/18 09:39 Freq: Status: Active Protocol: Document 06/03/18 12:45 LRN (Rec: 06/03/18 14:42 LRN [id number]) Cervical Spine Range of Motion Cervical Spine Passive Percentage Rotation Left 10 Rotation Right 40 Lateral Flexion Left 10 Lateral Flexion Right 40 ROM Limitations Pain Shoulder Goniometric Range of Motion Shoulder Measured in Degrees Right Active Flexion 130 Abduction 120 Internal Rotation Behind Back (text) T 7 Left Active Testing Position Sitting Flexion 145 Abduction 110 Internal Rotation Behind Back (text) L 5 Shoulder ROM Limitations Shoulder ROM Limitations Pain Comments Shoulder ER limited due to axillary pain, otherwise due to upper back pain. Reaching behind head mobility: T1 left, C7 right. PT-OP-M Strength Start: 06/02/18 09:39 Freq: Status: Active Protocol: Document 06/03/18 12:45 LRN (Rec: 06/03/18 14:42 LRN [id number]) Cervical Spine Strength Cervical Spine Manual Muscle Testing Reason Not Measured WFL Shoulder Strength Shoulder Manual Muscle Testing Right Reason Not Measured WFL Left Reason Not Measured WFL Elbow/Forearm Strength Elbow and Forearm Manual Muscle Testing Right Flexion (C6) 4 Good Extension (C7) 5 Normal Left Flexion (C6) 5 Normal Extension (C7) 5 Normal PT-OP-Q Treatments Start: 06/02/18 09:39 Freq: Status: Active Protocol: Document 07/05/18 11:10 SA (Rec: 07/05/18 11:22 SA [id number]) Therapeutic Exercises Supine Exercises Full body extension Supine Exercise Name Arching upper back, and pressing arms into table Side bilateral Reps/Minutes 3' Comments Knees bent Full body ext Supine Exercise Name Training for lumbar ext Reps/Minutes 3' Thoracic EXT stretch Supine Exercise Name Sup with Wei BKFO and arms in neutral/ER Reps/Minutes 3' Comments Pressing arms into table. Sitting Exercises End-range shoulder flexion Side right Resistance Lev 1 T-Band Reps/Minutes 10x3 Upper trap stretch Side right Reps/Minutes 30 x 2 Comments Focus this week to dec: L UT tight due to elevated L shoulder cerviacal rotations Side bilateral Reps/Minutes 20x Cervical side bend stretch Sitting Exercise Name SB head to Left Side right Reps/Minutes 30 x 2 Standing Exercises R Lumbar strengthening Standing Exercise Name R Hip AB Side right Reps/Minutes 10x3 Comments Pushing up on L arm support Thoracic spine EXT stretch Standing Exercise Name Standing against wall Side bilateral Reps/Minutes 30 x 2 Manual Therapy Treatment Soft Tissue Mobilization STM/MFR Body Location Upper thoracic,interscapular Mobilization Type Myofascial Release Rolling Strumming Intensity/Depth Moderate Body Position Hooklying PT-OP-R Modalities Start: 06/02/18 09:39 Freq: Status: Active Protocol: Document 07/05/18 11:10 SA (Rec: 07/05/18 11:22 SA [id number]) Electric Stimulation Electric Stimulation IFC Body Location Upper thoracic Duration (Minutes) 10 Target/Sweep Sweep Patient Position Supine Combined With Heat/Cold Cold Pack Comments Back: CP upper back. PT-OP-T Assessment and Plan Start: 06/02/18 09:39 Freq: Status: Active Protocol: Document 07/05/18 11:10 SA (Rec: 07/05/18 11:22 SA [id number]) Physical Therapy Assessment Progress Towards Goals Progress Towards Goals Progressing Toward Goals Progress Comments Pt able to maintain postural stretching for longer time with improved tolerance. Assessment Summary Assessment Pt tolerated CP well, pt doing well with HEP and tolerated injection well with some pain relief noted. Physical Therapy Plan Next Visit Focus/Plan Next Note Type Treatment Note Next Visit Plan Assess pt response to STM of upper thoracic area, continue to progress stretching/ strengthening program.
--- NOTE | 2018-07-12 09:40 | PT.OTN ---
Current Diagnoses Pain in right shoulder (07/12/18) Physical Therapy Treatment Note PT-OP-A Visit Information Start: 06/02/18 09:39 Freq: Status: Active Protocol: Document 07/12/18 09:33 SA (Rec: 07/12/18 09:40 SA [email or web address]) Out-Patient Physical Therapy Visit Information Visit Information Visit Type Treatment Note Visit Start Time 08:15 Visit Stop Time 09:04 Total Visit Minutes 49 Visit Number 9 Number of SERVICE LINE LAYER Visits 2 PT-OP-B Current Condition Start: 06/02/18 09:39 Freq: Status: Active Protocol: Document 06/03/18 12:45 LRN (Rec: 06/03/18 14:42 LRN [id number]) Current Condition History of Current Condition Onset Date 2 yrs ago Current Complaints Constant L>R upper back pain that worsens when using arms. History of Current Condition Pt has severe idopathic scoliosis of the spine with ongoing neck and back pain. She states she has had back pain for years but due to a recent L1 compression fracture followed by a longterm stay, Dr. Mendoza referred her to Dr. Portillo, who then referred her to Dr. Thompson. She states Dr Jeanette Thompson wants her to get a neck stretch program and he will give her trigger point injections starting next month . Prior Treatments and Tests X-rays: Results unavailable. 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 Future Testing and Treatments Planned Trigger point injections by Dr Jeanette Thompson. Treatment Goals Patient/Caregiver Goals Pt goal is to be taught neck stretch ex's and to get pain relief. She would like to be able to reach overhead with less discomfort (pain level no greater than 3/10). She states currently her pain level is 5/10. Prior Functional Status Baseline Function- ADL's Independent Baseline Function- Mobility Independent Baseline Function- Work/School Limited with lifting no more than 10# due to osteoporosis. Current Functional Impairments (Reported) Functional Limitations- ADL's Increased upper back pain (L>R ) with reaching overhead. Personal Factors Other Personal Factors That May Effect Age (77). Therapy/Recovery Co-morbidities: Osteoporosis, Idiopathic Scoliosis, Stress induced cardiomyopathy, R distal radius fracture, L1 compression fracture. Lives alone. Granddaughter ( 12 yrs old) helps her 4 days/ week. PT-OP-C Subjective Start: 06/02/18 09:39 Freq: Status: Active Protocol: Document 07/12/18 09:33 SA (Rec: 07/12/18 09:40 SA [email or web address]) OP-PT Subjective Patient Comments Patient Comments Had my second injection yesterday and again feeling good. Shot last week seemed to provide releif for 3-4 days. Still doing my stretches and I think that's helping alot. PT-OP-F Manual Assessment Start: 06/02/18 09:39 Freq: Status: Active Protocol: Document 06/03/18 12:45 LRN (Rec: 06/03/18 14:42 LRN [id number]) Manual Assessments Soft Tissue Assessment Soft Tissue Mobility Assessment Tender with increased soft tissue tension at L upper back . Tenderness of L upper thoracic and mid thoracic paraspinal musculature. Joint Mobility Assessment Joint Mobility Assessment Decreased joint mobility of Cervical spine with L sidebend and L rotation. Decreased thoracic and lumbar joint mobility for extension. PT-OP-J Posture/Palpation/Skin Start: 06/02/18 09:39 Freq: Status: Active Protocol: Document 06/03/18 12:45 LRN (Rec: 06/03/18 14:42 LRN [id number]) Posture Evaluation Position Sitting Head/C-Spine Posture Forward Head T-Spine Posture Increased Kyphosis L-Spine Posture Flattened Decreased Lordosis Shoulder Posture (L) Rounded (R) Rounded (L) Elevated Arm Posture (L) Internally Rotated (R) Internally Rotated Pelvis Posture Posterior Tilted PT-OP-K Range of Motion Start: 06/02/18 09:39 Freq: Status: Active Protocol: Document 06/03/18 12:45 LRN (Rec: 06/03/18 14:42 LRN [id number]) Cervical Spine Range of Motion Cervical Spine Passive Percentage Rotation Left 10 Rotation Right 40 Lateral Flexion Left 10 Lateral Flexion Right 40 ROM Limitations Pain Shoulder Goniometric Range of Motion Shoulder Measured in Degrees Right Active Flexion 130 Abduction 120 Internal Rotation Behind Back (text) T 7 Left Active Testing Position Sitting Flexion 145 Abduction 110 Internal Rotation Behind Back (text) L 5 Shoulder ROM Limitations Shoulder ROM Limitations Pain Comments Shoulder ER limited due to axillary pain, otherwise due to upper back pain. Reaching behind head mobility: T1 left, C7 right. PT-OP-M Strength Start: 06/02/18 09:39 Freq: Status: Active Protocol: Document 06/03/18 12:45 LRN (Rec: 06/03/18 14:42 LRN [id number]) Cervical Spine Strength Cervical Spine Manual Muscle Testing Reason Not Measured WFL Shoulder Strength Shoulder Manual Muscle Testing Right Reason Not Measured WFL Left Reason Not Measured WFL Elbow/Forearm Strength Elbow and Forearm Manual Muscle Testing Right Flexion (C6) 4 Good Extension (C7) 5 Normal Left Flexion (C6) 5 Normal Extension (C7) 5 Normal PT-OP-Q Treatments Start: 06/02/18 09:39 Freq: Status: Active Protocol: Document 07/12/18 09:33 SA (Rec: 07/12/18 09:40 SA [email or web address]) Therapeutic Exercises Supine Exercises Full body extension Supine Exercise Name Arching upper back, and pressing arms into table Side bilateral Reps/Minutes 3' Comments Knees bent Thoracic EXT stretch Supine Exercise Name Sup with Wei BKFO and arms in neutral/ER Reps/Minutes 3' Comments Pressing arms into table. Sidelying Exercises R LB strengthening Sidelying Exercise Name L sidelie: R Hip Francisco Hold with ext Comments Assist needed to move R LE. Pt unable to hold in AB Sitting Exercises Upper trap stretch Side right Reps/Minutes 30 x 2 Comments Focus this week to dec: L UT tight due to elevated L shoulder cerviacal rotations Side bilateral Reps/Minutes 20x Cervical side bend stretch Sitting Exercise Name SB head to Left Side right Reps/Minutes 30 x 2 1 Sitting Exercise Name seated row/scap retraction Side left Resistance Lev 2 T-Band Reps/Minutes 60x Standing Exercises L intrascapular strengthening Side left Equipment Used 2# TB Reps/Minutes 20x Thoracic spine EXT stretch Standing Exercise Name Standing against wall Side bilateral Reps/Minutes 30 x 2 Manual Therapy Treatment Soft Tissue Mobilization STM/MFR Body Location Upper thoracic,interscapular Mobilization Type Myofascial Release Rolling Strumming Intensity/Depth Moderate Body Position Hooklying PT-OP-R Modalities Start: 06/02/18 09:39 Freq: Status: Active Protocol: Document 07/12/18 09:33 SA (Rec: 07/12/18 09:40 SA [email or web address]) Electric Stimulation Electric Stimulation IFC Body Location Upper thoracic Duration (Minutes) 15 Target/Sweep Sweep Patient Position Sidelying Combined With Heat/Cold Cold Pack Comments Back: CP upper back. PT-OP-T Assessment and Plan Start: 06/02/18 09:39 Freq: Status: Active Protocol: Document 07/12/18 09:33 SA (Rec: 07/12/18 09:40 SA [email or web address]) Physical Therapy Assessment Progress Towards Goals Progress Towards Goals Progressing Toward Goals Progress Comments Pt able to maintain postural stretching for longer time with improved tolerance. Assessment Summary Assessment Pt having relief with injections and consistent with HEP, improving tolerance of stretching/strengthening. Physical Therapy Plan Next Visit Focus/Plan Next Note Type Treatment Note Next Visit Plan Cont to progress stretching/ strengthening, monitor response to manual therapy and injections.
--- NOTE | 2018-07-22 15:20 | PT.OTN ---
Current Diagnoses Pain in right shoulder (07/22/18) Physical Therapy Treatment Note PT-OP-A Visit Information Start: 06/02/18 09:39 Freq: Status: Active Protocol: Document 07/22/18 15:09 SA (Rec: 07/22/18 15:20 SA [email or web address]) Out-Patient Physical Therapy Visit Information Visit Information Visit Type Treatment Note Visit Start Time 14:30 Visit Stop Time 13:20 Total Visit Minutes 50 Visit Number 10 Number of BOAT DECKHAND Visits 3 PT-OP-B Current Condition Start: 06/02/18 09:39 Freq: Status: Active Protocol: Document 06/03/18 12:45 LRN (Rec: 06/03/18 14:42 LRN [id number]) Current Condition History of Current Condition Onset Date 2 yrs ago Current Complaints Constant L>R upper back pain that worsens when using arms. History of Current Condition Pt has severe idopathic scoliosis of the spine with ongoing neck and back pain. She states she has had back pain for years but due to a recent L1 compression fracture followed by a correction stay, Dr. Mendoza referred her to Dr. Portillo, who then referred her to Dr. Thompson. She states Dr Jeanette Thompson wants her to get a neck stretch program and he will give her trigger point injections starting next month . Prior Treatments and Tests X-rays: Results unavailable. 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 Future Testing and Treatments Planned Trigger point injections by Dr Jeanette Thompson. Treatment Goals Patient/Caregiver Goals Pt goal is to be taught neck stretch ex's and to get pain relief. She would like to be able to reach overhead with less discomfort (pain level no greater than 3/10). She states currently her pain level is 5/10. Prior Functional Status Baseline Function- ADL's Independent Baseline Function- Mobility Independent Baseline Function- Work/School Limited with lifting no more than 10# due to osteoporosis. Current Functional Impairments (Reported) Functional Limitations- ADL's Increased upper back pain (L>R ) with reaching overhead. Personal Factors Other Personal Factors That May Effect Age (77). Therapy/Recovery Co-morbidities: Osteoporosis, Idiopathic Scoliosis, Stress induced cardiomyopathy, R distal radius fracture, L1 compression fracture. Lives alone. Granddaughter ( 12 yrs old) helps her 4 days/ week. PT-OP-C Subjective Start: 06/02/18 09:39 Freq: Status: Active Protocol: Document 07/22/18 15:09 SA (Rec: 07/22/18 15:20 SA [email or web address]) OP-PT Subjective Patient Comments Patient Comments Pt reports feeling like she is more able to manage her pain. Takes brakes more frequently with activities that increase pain, does stretches regularly and modifies activites. Pt reported improvement of upper back and cervical symptoms. PT-OP-F Manual Assessment Start: 06/02/18 09:39 Freq: Status: Active Protocol: Document 06/03/18 12:45 LRN (Rec: 06/03/18 14:42 LRN [id number]) Manual Assessments Soft Tissue Assessment Soft Tissue Mobility Assessment Tender with increased soft tissue tension at L upper back . Tenderness of L upper thoracic and mid thoracic paraspinal musculature. Joint Mobility Assessment Joint Mobility Assessment Decreased joint mobility of Cervical spine with L sidebend and L rotation. Decreased thoracic and lumbar joint mobility for extension. PT-OP-J Posture/Palpation/Skin Start: 06/02/18 09:39 Freq: Status: Active Protocol: Document 06/03/18 12:45 LRN (Rec: 06/03/18 14:42 LRN [id number]) Posture Evaluation Position Sitting Head/C-Spine Posture Forward Head T-Spine Posture Increased Kyphosis L-Spine Posture Flattened Decreased Lordosis Shoulder Posture (L) Rounded (R) Rounded (L) Elevated Arm Posture (L) Internally Rotated (R) Internally Rotated Pelvis Posture Posterior Tilted PT-OP-K Range of Motion Start: 06/02/18 09:39 Freq: Status: Active Protocol: Document 06/03/18 12:45 LRN (Rec: 06/03/18 14:42 LRN [id number]) Cervical Spine Range of Motion Cervical Spine Passive Percentage Rotation Left 10 Rotation Right 40 Lateral Flexion Left 10 Lateral Flexion Right 40 ROM Limitations Pain Shoulder Goniometric Range of Motion Shoulder Measured in Degrees Right Active Flexion 130 Abduction 120 Internal Rotation Behind Back (text) T 7 Left Active Testing Position Sitting Flexion 145 Abduction 110 Internal Rotation Behind Back (text) L 5 Shoulder ROM Limitations Shoulder ROM Limitations Pain Comments Shoulder ER limited due to axillary pain, otherwise due to upper back pain. Reaching behind head mobility: T1 left, C7 right. PT-OP-M Strength Start: 06/02/18 09:39 Freq: Status: Active Protocol: Document 06/03/18 12:45 LRN (Rec: 06/03/18 14:42 LRN [id number]) Cervical Spine Strength Cervical Spine Manual Muscle Testing Reason Not Measured WFL Shoulder Strength Shoulder Manual Muscle Testing Right Reason Not Measured WFL Left Reason Not Measured WFL Elbow/Forearm Strength Elbow and Forearm Manual Muscle Testing Right Flexion (C6) 4 Good Extension (C7) 5 Normal Left Flexion (C6) 5 Normal Extension (C7) 5 Normal PT-OP-Q Treatments Start: 06/02/18 09:39 Freq: Status: Active Protocol: Document 07/22/18 15:09 SA (Rec: 07/22/18 15:20 SA [email or web address]) Therapeutic Exercises Supine Exercises Full body extension Supine Exercise Name Arching upper back, and pressing arms into table Side bilateral Reps/Minutes 3' Comments Knees bent Thoracic EXT stretch Supine Exercise Name Sup with Wei BKFO and arms in neutral/ER Reps/Minutes 3' Comments Pressing arms into table. Sitting Exercises End-range shoulder flexion Side right Resistance Lev 1 T-Band Reps/Minutes 10x3 Upper trap stretch Side right Reps/Minutes 30 x 2 Comments Focus this week to dec: L UT tight due to elevated L shoulder cerviacal rotations Side bilateral Reps/Minutes 20x Cervical side bend stretch Sitting Exercise Name SB head to Left Side right Reps/Minutes 30 x 2 Standing Exercises L intrascapular strengthening Side left Equipment Used 2# TB Reps/Minutes 20x Thoracic spine EXT stretch Standing Exercise Name Standing against wall Manual Therapy Treatment Soft Tissue Mobilization STM/MFR Body Location Upper thoracic,interscapular Mobilization Type Myofascial Release Rolling Strumming Intensity/Depth Moderate Body Position Hooklying PT-OP-R Modalities Start: 06/02/18 09:39 Freq: Status: Active Protocol: Document 07/22/18 15:09 SA (Rec: 07/22/18 15:20 SA [email or web address]) Electric Stimulation Electric Stimulation IFC Body Location Upper thoracic Duration (Minutes) 15 Target/Sweep Sweep Patient Position Sidelying Combined With Heat/Cold Cold Pack Comments Back: CP upper back. PT-OP-T Assessment and Plan Start: 06/02/18 09:39 Freq: Status: Active Protocol: Document 07/22/18 15:09 SA (Rec: 07/22/18 15:20 SA [email or web address]) Physical Therapy Assessment Assessment Summary Assessment Pt tolerating cervical/ thoracic stretches and scapular strengthening well. Reports releif with manual therapy, stretching and injections. Continue to progress HEP. Physical Therapy Plan Next Visit Focus/Plan Next Note Type Treatment Note Next Visit Plan Continue to progress stretching /strengthening as able.
--- NOTE | 2018-08-01 14:40 | PT.OPPOC ---
Current Diagnoses Pain in right shoulder (08/18/18) Provider Visit Care Team Role Provider Type Charles Castaneda MD Family Provider Physician Primary Care Provider Specialty: Internal Medicine Address: [address] [place] [address], [id number] Email: [email or web address] Portillo MD Attending Provider Physician Specialty: Orthopedic Surgery Address: [address] [place] [address], [id number] Email: [email or web address] Plan Of Care PT-OP-T Assessment and Plan Start: 06/02/18 09:39 Freq: Status: Active Protocol: Document 08/18/18 09:04 LRN (Rec: 08/18/18 09:49 LRN [id number]) Physical Therapy Assessment Goals Six Impairment R shoulder pain (3/10) Office Bookkeeper Goal (LTG) 0/10 prior to d/c pain in R shoulder Achieved 12/23/17 LTG Duration 09/16/28 (Goal Met at rest) Five Impairment Gait tolerance Office Bookkeeper Goal (LTG) Pt will report being back to prior level of gait outdoors without assistive device prior to d/c. Achieved 12/23/17. LTG Duration 09/16/18 Four Impairment Decreased neck mobility Short Term Goal (STG) Pt will be independent with a HEP of neck mobility exercises . STG Duration 06/10/18 (Goal Met) Three Impairment Decreased shoulder mobility Short Term Goal (STG) Pt will be independent with a HEP of shoulder mobility exercises. STG Duration 06/17/18 Two Impairment L upper back pain rated 5/10. Office Bookkeeper Goal (LTG) Pt will be able to reach overhead with L upper back pain no greater than 3/10. LTG Duration 07/21/18. One Impairment Pt lacks appropriate self care program. Office Bookkeeper Goal (LTG) Pt will be independent on an self care HEP to manage her back pain. LTG Duration 07/21/18. Assessment Summary Assessment Pain with reaching overhead persists due to severe kyphosis. Hip flexors are tight and weakness is present in Glut Medius, making pure hip AB difficult. Thoracic ext strengthening and progressing balance is needed. [ End ] Physical Therapy Plan Frequency and Duration Frequency of Treatment 2x/Week Plan of Care Start Date 06/03/18 Plan of Care End Date 09/16/18 Next Visit Focus/Plan Next Note Type Treatment Note Next Visit Plan Recheck progress to goals. Issue HEP for shoulder ROM ex' s. Continue to progress stretching/strengthening ( standing) as able for kyphosis . Progress DLS and thoracic/ lumbar program. [ End ] Plan of Care Dates Plan of Care Start Date 06/03/18 Plan of Care End Date 09/16/18 Please Sign and Return: I have reviewed this Plan of Care and certify that the skilled therapy services above are required to meet the patient?s needs. Physician Signature Date Printed Name and Credentials Clinical Instructor Signature Printed Name and Credentials
--- NOTE | 2018-08-01 15:03 | PT.OTN ---
Current Diagnoses Pain in right shoulder (08/01/18) Physical Therapy Treatment Note PT-OP-A Visit Information Start: 06/02/18 09:39 Freq: Status: Active Protocol: Document 08/01/18 13:40 LRN (Rec: 08/01/18 14:39 LRN [id number]) Out-Patient Physical Therapy Visit Information Visit Information Visit Type Progress Note Visit Start Time 13:40 Visit Stop Time 14:30 Total Visit Minutes 50 Visit Number 11 Number of CHEMICAL SUPERVISOR Visits 3 Evaluation Information Evaluation Date 06/03/18 Precautions Precautions Osteoporosis, Closed L1 vertebral fracture. PT-OP-B Current Condition Start: 06/02/18 09:39 Freq: Status: Active Protocol: Document 06/03/18 12:45 LRN (Rec: 06/03/18 14:42 LRN [id number]) Current Condition History of Current Condition Onset Date 2 yrs ago Current Complaints Constant L>R upper back pain that worsens when using arms. History of Current Condition Pt has severe idopathic scoliosis of the spine with ongoing neck and back pain. She states she has had back pain for years but due to a recent L1 compression fracture followed by a intermediate stay, Dr. Mendoza referred her to Dr. Portillo, who then referred her to Dr. Thompson. She states Dr Jeanette Thompson wants her to get a neck stretch program and he will give her trigger point injections starting next month . Prior Treatments and Tests X-rays: Results unavailable. 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 Future Testing and Treatments Planned Trigger point injections by Dr Jeanette Thompson. Treatment Goals Patient/Caregiver Goals Pt goal is to be taught neck stretch ex's and to get pain relief. She would like to be able to reach overhead with less discomfort (pain level no greater than 3/10). She states currently her pain level is 5/10. Prior Functional Status Baseline Function- ADL's Independent Baseline Function- Mobility Independent Baseline Function- Work/School Limited with lifting no more than 10# due to osteoporosis. Current Functional Impairments (Reported) Functional Limitations- ADL's Increased upper back pain (L>R ) with reaching overhead. Personal Factors Other Personal Factors That May Effect Age (77). Therapy/Recovery Co-morbidities: Osteoporosis, Idiopathic Scoliosis, Stress induced cardiomyopathy, R distal radius fracture, L1 compression fracture. Lives alone. Granddaughter ( 12 yrs old) helps her 4 days/ week. PT-OP-C Subjective Start: 06/02/18 09:39 Freq: Status: Active Protocol: Document 08/01/18 13:40 LRN (Rec: 08/01/18 14:39 LRN [id number]) OP-PT Subjective Patient Comments Patient Comments Mid Back pain was worsening the last few days. Doing more with physical activities: housework, cooking. Had 3rd injections this morning in 3 different spots in the mid back. Patient Reported Progress Improving OP-PT Pain Assessment Pain Assessment Grid Paper Pain Assessment Grid Completed No PT-OP-F Manual Assessment Start: 06/02/18 09:39 Freq: Status: Active Protocol: Document 06/03/18 12:45 LRN (Rec: 06/03/18 14:42 LRN [id number]) Manual Assessments Soft Tissue Assessment Soft Tissue Mobility Assessment Tender with increased soft tissue tension at L upper back . Tenderness of L upper thoracic and mid thoracic paraspinal musculature. Joint Mobility Assessment Joint Mobility Assessment Decreased joint mobility of Cervical spine with L sidebend and L rotation. Decreased thoracic and lumbar joint mobility for extension. PT-OP-J Posture/Palpation/Skin Start: 06/02/18 09:39 Freq: Status: Active Protocol: Document 06/03/18 12:45 LRN (Rec: 06/03/18 14:42 LRN [id number]) Posture Evaluation Position Sitting Head/C-Spine Posture Forward Head T-Spine Posture Increased Kyphosis L-Spine Posture Flattened Decreased Lordosis Shoulder Posture (L) Rounded (R) Rounded (L) Elevated Arm Posture (L) Internally Rotated (R) Internally Rotated Pelvis Posture Posterior Tilted PT-OP-K Range of Motion Start: 06/02/18 09:39 Freq: Status: Active Protocol: Document 08/01/18 13:40 LRN (Rec: 08/01/18 14:39 LRN [id number]) Cervical Spine Range of Motion Cervical Spine Passive Percentage Testing Position Sitting Rotation Left 75 Rotation Right 70 ROM Limitations Pain Comments SB: 10 deg's left, 27 deg's right. Rot: 64 deg's left, 57 deg's right PT-OP-M Strength Start: 06/02/18 09:39 Freq: Status: Active Protocol: Document 06/03/18 12:45 LRN (Rec: 06/03/18 14:42 LRN [id number]) Cervical Spine Strength Cervical Spine Manual Muscle Testing Reason Not Measured WFL Shoulder Strength Shoulder Manual Muscle Testing Right Reason Not Measured WFL Left Reason Not Measured WFL Elbow/Forearm Strength Elbow and Forearm Manual Muscle Testing Right Flexion (C6) 4 Good Extension (C7) 5 Normal Left Flexion (C6) 5 Normal Extension (C7) 5 Normal PT-OP-Q Treatments Start: 06/02/18 09:39 Freq: Status: Active Protocol: Document 08/01/18 13:40 LRN (Rec: 08/01/18 14:39 LRN [id number]) Therapeutic Exercises Supine Exercises Scapular pinches Side bilateral Reps/Minutes 3' Full body extension Supine Exercise Name Arching upper back, and pressing arms into table Side bilateral Reps/Minutes 3' Comments Knees bent Thoracic EXT stretch Supine Exercise Name Sup with Wei BKFO and arms in neutral/ER Reps/Minutes 3' Comments Pressing arms into table. Sidelying Exercises R LB strengthening Sidelying Exercise Name L sidelie: R Hip Francisco Hold with ext Comments Assist needed to move R LE. Pt unable to hold in AB Sitting Exercises End-range shoulder flexion Side right Reps/Minutes 15 Upper trap stretch Side right Reps/Minutes 30 x 2 Comments Focus this week to dec: L UT tight due to elevated L shoulder cerviacal rotations Side bilateral Reps/Minutes 20x Comments ROM taken Cervical side bend stretch Sitting Exercise Name SB head to Left Side right Reps/Minutes 30 x 2 Comments ROM taken PT-OP-R Modalities Start: 06/02/18 09:39 Freq: Status: Active Protocol: Document 08/01/18 13:40 LRN (Rec: 08/01/18 14:39 LRN [id number]) Electric Stimulation Electric Stimulation IFC Body Location Upper thoracic Duration (Minutes) 13 Intensity 13 Target/Sweep Sweep Patient Position Supine Combined With Heat/Cold Hot Pack Comments Hot pack: back and neck. PT-OP-T Assessment and Plan Start: 06/02/18 09:39 Freq: Status: Active Protocol: Document 08/01/18 13:40 LRN (Rec: 08/01/18 14:39 LRN [id number]) Physical Therapy Assessment Goals Six Impairment R shoulder pain (3/10) Skilled Nursing Goal (LTG) 0/10 prior to d/c pain in R shoulder Achieved 12/23/17 LTG Duration 12 weeks Five Impairment Gait tolerance Skilled Nursing Goal (LTG) Pt will report being back to prior level of gait outdoors without assistive device prior to d/c. Achieved 12/23/17. LTG Duration 12 weeks Four Impairment Decreased neck mobility Short Term Goal (STG) Pt will be independent with a HEP of neck mobility exercises . STG Duration 06/10/18 Three Impairment Decreased shoulder mobility Short Term Goal (STG) Pt will be independent with a HEP of shoulder mobility exercises. STG Duration 06/17/18 Two Impairment L upper back pain rated 5/10. Skilled Nursing Goal (LTG) Pt will be able to reach overhead with L upper back pain no greater than 3/10. LTG Duration 07/21/18. One Impairment Pt lacks appropriate self care program. Skilled Nursing Goal (LTG) Pt will be independent on an self care HEP to manage her back pain. LTG Duration 07/21/18. Progress Towards Goals Progress Towards Goals Progressing Toward Goals Slow Progress due to Activity Tolerance Slow Progress due to Medical Issues Progress Comments Overall pt is slowly increasing in level of activity tolerance. Assessment Summary Assessment The pt has made slow but continual progress in improving her activity tolerance with less pain and improved posture with the ability to lie supine. Today she has less tolerance to exercise due to cortisone injections given this morning in her mid back (3 injections) . Pt is able to perform thoracic ext in supine now as well as against the wall in standing. Neck rotation is symmetrical. Cervical L SB is worse than R (10 deg's left, 27 deg's right). Further strengthening to minimize pain from scoliosis and improve posture is needed. Physical Therapy Plan Frequency and Duration Frequency of Treatment 2x/Week Plan of Care Start Date 06/03/18 Plan of Care End Date 09/16/18 Therapeutic Interventions Therapeutic Interventions Home Exercise Program Manual Therapy Neuromuscular Re-education Patient/Caregiver Education Self-Care/Home Management Soft Tissue Mobilization Taping Therapeutic Exercises Modalities Cold Pack/Ice Massage Electric Stimulation Hot Packs Infrared Therapy Ultrasound Next Visit Focus/Plan Next Note Type Treatment Note Next Visit Plan Continue to progress stretching/strengthening ( standing) as able for scoliosis. Assess pt's painfree ability to reach overhead. Progress DLS and thoracic/lumbar program.
--- NOTE | 2018-08-01 15:04 | PT.OPPOC ---
Current Diagnoses Pain in right shoulder (08/01/18) Provider Visit Care Team Role Provider Type Charles Castaneda MD Family Provider Physician Primary Care Provider Specialty: Internal Medicine Address: [address] [place] [address], [id number] Email: [email or web address] Portillo MD Attending Provider Physician Specialty: Orthopedic Surgery Address: [address] [place] [address], [address] Email: [email or web address] Of [email or web address] PT-OP-T Assessment and Plan Start: 06/02/18 09:39 Freq: Status: Active Protocol: Document 08/01/18 13:40 LRN (Rec: 08/01/18 14:39 LRN [id number]) Physical Therapy Assessment Goals Six Impairment R shoulder pain (3/10) Field Evidence Technician Goal (LTG) 0/10 prior to d/c pain in R shoulder Achieved 12/23/17 LTG Duration 12 weeks Five Impairment Gait tolerance Field Evidence Technician Goal (LTG) Pt will report being back to prior level of gait outdoors without assistive device prior to d/c. Achieved 12/23/17. LTG Duration 12 weeks Four Impairment Decreased neck mobility Short Term Goal (STG) Pt will be independent with a HEP of neck mobility exercises . STG Duration 06/10/18 Three Impairment Decreased shoulder mobility Short Term Goal (STG) Pt will be independent with a HEP of shoulder mobility exercises. STG Duration 06/17/18 Two Impairment L upper back pain rated 5/10. Jail Goal (LTG) Pt will be able to reach overhead with L upper back pain no greater than 3/10. LTG Duration 07/21/18. One Impairment Pt lacks appropriate self care program. Field Evidence Technician Goal (LTG) Pt will be independent on an self care HEP to manage her back pain. LTG Duration 07/21/18. Progress Towards Goals Progress Towards Goals Progressing Toward Goals Slow Progress due to Activity Tolerance Slow Progress due to Medical Issues Progress Comments Overall pt is slowly increasing in level of activity tolerance. Assessment Summary Assessment The pt has made slow but continual progress in improving her activity tolerance with less pain and improved posture with the ability to lie supine. Today she has less tolerance to exercise due to cortisone injections given this morning in her mid back (3 injections) . Pt is able to perform thoracic ext in supine now as well as against the wall in standing. Neck rotation is symmetrical. Cervical L SB is worse than R (10 deg's left, 27 deg's right). Further strengthening to minimize pain from scoliosis and improve posture is needed. Physical Therapy Plan Frequency and Duration Frequency of Treatment 2x/Week Plan of Care Start Date 06/03/18 Plan of Care End Date 09/16/18 Therapeutic Interventions Therapeutic Interventions Home Exercise Program Manual Therapy Neuromuscular Re-education Patient/Caregiver Education Self-Care/Home Management Soft Tissue Mobilization Taping Therapeutic Exercises Modalities Cold Pack/Ice Massage Electric Stimulation Hot Packs Infrared Therapy Ultrasound Next Visit Focus/Plan Next Note Type Treatment Note Next Visit Plan Continue to progress stretching/strengthening ( standing) as able for scoliosis. Assess pt's painfree ability to reach overhead. Progress DLS and thoracic/lumbar program. Plan of Care Dates Plan of Care Start Date 06/03/18 Plan of Care End Date 09/16/18 Please Sign and Return: I have reviewed this Plan of Care and certify that the skilled therapy services above are required to meet the patient?s needs. Physician Signature Date Printed Name and Credentials Clinical Instructor Signature Printed Name and Credentials
--- NOTE | 2018-08-04 15:10 | PT.OTN ---
Current Diagnoses Pain in right shoulder (08/04/18) Physical Therapy Treatment Note PT-OP-A Visit Information Start: 06/02/18 09:39 Freq: Status: Active Protocol: Document 08/04/18 11:18 LRN (Rec: 08/04/18 12:43 LRN [id number]) Out-Patient Physical Therapy Visit Information Visit Information Visit Type Progress Note Visit Start Time 11:18 Visit Stop Time 12:18 Total Visit Minutes 60 Visit Number 12 Number of BAGGAGE PORTER Visits 0 Evaluation Information Evaluation Date 06/03/18 PT-OP-B Current Condition Start: 06/02/18 09:39 Freq: Status: Active Protocol: Document 06/03/18 12:45 LRN (Rec: 06/03/18 14:42 LRN [id number]) Current Condition History of Current Condition Onset Date 2 yrs ago Current Complaints Constant L>R upper back pain that worsens when using arms. History of Current Condition Pt has severe idopathic scoliosis of the spine with ongoing neck and back pain. She states she has had back pain for years but due to a recent L1 compression fracture followed by a group home stay, Dr. Mendoza referred her to Dr. Portillo, who then referred her to Dr. Thompson. She states Dr Jeanette Thompson wants her to get a neck stretch program and he will give her trigger point injections starting next month . Prior Treatments and Tests X-rays: Results unavailable. 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 Future Testing and Treatments Planned Trigger point injections by Dr Jeanette Thompson. Treatment Goals Patient/Caregiver Goals Pt goal is to be taught neck stretch ex's and to get pain relief. She would like to be able to reach overhead with less discomfort (pain level no greater than 3/10). She states currently her pain level is 5/10. Prior Functional Status Baseline Function- ADL's Independent Baseline Function- Mobility Independent Baseline Function- Work/School Limited with lifting no more than 10# due to osteoporosis. Current Functional Impairments (Reported) Functional Limitations- ADL's Increased upper back pain (L>R ) with reaching overhead. Personal Factors Other Personal Factors That May Effect Age (77). Therapy/Recovery Co-morbidities: Osteoporosis, Idiopathic Scoliosis, Stress induced cardiomyopathy, R distal radius fracture, L1 compression fracture. Lives alone. Granddaughter ( 12 yrs old) helps her 4 days/ week. PT-OP-C Subjective Start: 06/02/18 09:39 Freq: Status: Active Protocol: Document 08/04/18 11:18 LRN (Rec: 08/04/18 12:43 LRN [id number]) OP-PT Subjective Patient Comments Patient Comments States she is better, no as much pain with walking. Worst is waking up in the morning she is stiff and sore and it takes 1 hr after medications before she feels better. PT-OP-F Manual Assessment Start: 06/02/18 09:39 Freq: Status: Active Protocol: Document 06/03/18 12:45 LRN (Rec: 06/03/18 14:42 LRN [id number]) Manual Assessments Soft Tissue Assessment Soft Tissue Mobility Assessment Tender with increased soft tissue tension at L upper back . Tenderness of L upper thoracic and mid thoracic paraspinal musculature. Joint Mobility Assessment Joint Mobility Assessment Decreased joint mobility of Cervical spine with L sidebend and L rotation. Decreased thoracic and lumbar joint mobility for extension. PT-OP-J Posture/Palpation/Skin Start: 06/02/18 09:39 Freq: Status: Active Protocol: Document 06/03/18 12:45 LRN (Rec: 06/03/18 14:42 LRN [id number]) Posture Evaluation Position Sitting Head/C-Spine Posture Forward Head T-Spine Posture Increased Kyphosis L-Spine Posture Flattened Decreased Lordosis Shoulder Posture (L) Rounded (R) Rounded (L) Elevated Arm Posture (L) Internally Rotated (R) Internally Rotated Pelvis Posture Posterior Tilted PT-OP-K Range of Motion Start: 06/02/18 09:39 Freq: Status: Active Protocol: Document 08/01/18 13:40 LRN (Rec: 08/01/18 14:39 LRN [id number]) Cervical Spine Range of Motion Cervical Spine Passive Percentage Testing Position Sitting Rotation Left 75 Rotation Right 70 ROM Limitations Pain Comments SB: 10 deg's left, 27 deg's right. Rot: 64 deg's left, 57 deg's right PT-OP-M Strength Start: 06/02/18 09:39 Freq: Status: Active Protocol: Document 06/03/18 12:45 LRN (Rec: 06/03/18 14:42 LRN [id number]) Cervical Spine Strength Cervical Spine Manual Muscle Testing Reason Not Measured WFL Shoulder Strength Shoulder Manual Muscle Testing Right Reason Not Measured WFL Left Reason Not Measured WFL Elbow/Forearm Strength Elbow and Forearm Manual Muscle Testing Right Flexion (C6) 4 Good Extension (C7) 5 Normal Left Flexion (C6) 5 Normal Extension (C7) 5 Normal PT-OP-Q Treatments Start: 06/02/18 09:39 Freq: Status: Active Protocol: Document 08/04/18 11:18 LRN (Rec: 08/04/18 12:43 LRN [id number]) Therapeutic Exercises Supine Exercises Deep cervical flexors Supine Exercise Name Neck elongation Side right Scapular pinches Side bilateral Reps/Minutes 3' Full body extension Supine Exercise Name Arching upper back, and pressing arms into table Side bilateral Reps/Minutes 15 x 2 Comments Knees bent Full body ext Supine Exercise Name Arching upper back, and pressing arms into table Reps/Minutes 3' Comments Knees straight Sidelying Exercises Rotation backward Sidelying Exercise Name Thoracic extension stretch f/b active Side bilateral Reps/Minutes 6' Comments Hold stretch f/b active stretch R LB strengthening Sidelying Exercise Name L sidelie: R Hip Francisco Hold with ext Comments Assist needed to move R LE. Pt unable to hold in AB L arm lift with scapular retract Sidelying Exercise Name L interscapular strengthening Reps/Minutes 10x1, 10x2 Standing Exercises R Lumbar strengthening Standing Exercise Name R Hip AB Side right Reps/Minutes 10x3 Comments Keeping R foot on ground Gait Training Gait Activity Posture training Description Maintaining chest lifted during gait Device Used SPC on left Level of Assistance v. cuing Surface level Treatment Focus Improving posture with gait. Self-Care/Home Management Treatment Education Patient Education Posture Activities Self-Care/Home Management Activities Training for positioning at night in sidelie with improved posturing. PT-OP-R Modalities Start: 06/02/18 09:39 Freq: Status: Active Protocol: Document 08/04/18 11:18 LRN (Rec: 08/04/18 14:59 LRN [id number]) Electric Stimulation Electric Stimulation IFC Body Location Upper thoracic Duration (Minutes) 13 Intensity 12 Target/Sweep Sweep Patient Position Supine Combined With Heat/Cold Cold Pack Comments Cold pack: back Postion: supine with legs extended PT-OP-T Assessment and Plan Start: 06/02/18 09:39 Freq: Status: Active Protocol: Document 08/04/18 11:18 LRN (Rec: 08/04/18 12:43 [email or web address] [id number]) Physical Therapy Assessment Assessment Summary Assessment Improved posture after therapy , she is able to maintain her chest pointing forward rather than downward. Pt is able to lie supine without back pain. She has tight hip flexors and pectoralis muscles bilaterally. Pt pain on waking is probably due to posturing during the night, pt is to track positioning at nighttime. Physical Therapy Plan Frequency and Duration Frequency of Treatment 2x/Week Plan of Care Start Date 06/03/18 Plan of Care End Date 09/16/18 Next Visit Focus/Plan Next Note Type Treatment Note Next Visit Plan Assess change in nighttime sleep. Continue to progress stretching/strengthening ( standing) as able for scoliosis. Assess pt's painfree ability to reach overhead. Progress DLS and thoracic/lumbar program.
--- NOTE | 2018-08-08 12:32 | PT.OTN ---
Current Diagnoses Pain in right shoulder (08/08/18) Physical Therapy Treatment Note PT-OP-A Visit Information Start: 06/02/18 09:39 Freq: Status: Active Protocol: Document 08/08/18 11:17 LRN (Rec: 08/08/18 12:13 LRN [id number]) Out-Patient Physical Therapy Visit Information Visit Information Visit Type Treatment Note Visit Start Time 11:17 Visit Stop Time 12:07 Total Visit Minutes 50 Visit Number Number of COGNOS LEAD Visits 0 Evaluation Information Evaluation Date 06/03/18 PT-OP-B Current Condition Start: 06/02/18 09:39 Freq: Status: Active Protocol: Document 06/03/18 12:45 LRN (Rec: 06/03/18 14:42 LRN [id number]) Current Condition History of Current Condition Onset Date 2 yrs ago Current Complaints Constant L>R upper back pain that worsens when using arms. History of Current Condition Pt has severe idopathic scoliosis of the spine with ongoing neck and back pain. She states she has had back pain for years but due to a recent L1 compression fracture followed by a snf stay, Dr. Mendoza referred her to Dr. Portillo, who then referred her to Dr. Thompson. She states Dr Jeanette Thompson wants her to get a neck stretch program and he will give her trigger point injections starting next month . Prior Treatments and Tests X-rays: Results unavailable. 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 Future Testing and Treatments Planned Trigger point injections by Dr Jeanette Thompson. Treatment Goals Patient/Caregiver Goals Pt goal is to be taught neck stretch ex's and to get pain relief. She would like to be able to reach overhead with less discomfort (pain level no greater than 3/10). She states currently her pain level is 5/10. Prior Functional Status Baseline Function- ADL's Independent Baseline Function- Mobility Independent Baseline Function- Work/School Limited with lifting no more than 10# due to osteoporosis. Current Functional Impairments (Reported) Functional Limitations- ADL's Increased upper back pain (L>R ) with reaching overhead. Personal Factors Other Personal Factors That May Effect Age (77). Therapy/Recovery Co-morbidities: Osteoporosis, Idiopathic Scoliosis, Stress induced cardiomyopathy, R distal radius fracture, L1 compression fracture. Lives alone. Granddaughter ( 12 yrs old) helps her 4 days/ week. PT-OP-C Subjective Start: 06/02/18 09:39 Freq: Status: Active Protocol: Document 08/08/18 11:17 LRN (Rec: 08/08/18 12:13 LRN [id number]) OP-PT Subjective Patient Comments Patient Comments States she had an injection just before therapy. States she has less pain first in the morning, rated 4/10 (used to be 8/10). Patient Reported Progress Improving PT-OP-F Manual Assessment Start: 06/02/18 09:39 Freq: Status: Active Protocol: Document 06/03/18 12:45 LRN (Rec: 06/03/18 14:42 LRN [id number]) Manual Assessments Soft Tissue Assessment Soft Tissue Mobility Assessment Tender with increased soft tissue tension at L upper back . Tenderness of L upper thoracic and mid thoracic paraspinal musculature. Joint Mobility Assessment Joint Mobility Assessment Decreased joint mobility of Cervical spine with L sidebend and L rotation. Decreased thoracic and lumbar joint mobility for extension. PT-OP-J Posture/Palpation/Skin Start: 06/02/18 09:39 Freq: Status: Active Protocol: Document 06/03/18 12:45 LRN (Rec: 06/03/18 14:42 LRN [id number]) Posture Evaluation Position Sitting Head/C-Spine Posture Forward Head T-Spine Posture Increased Kyphosis L-Spine Posture Flattened Decreased Lordosis Shoulder Posture (L) Rounded (R) Rounded (L) Elevated Arm Posture (L) Internally Rotated (R) Internally Rotated Pelvis Posture Posterior Tilted PT-OP-K Range of Motion Start: 06/02/18 09:39 Freq: Status: Active Protocol: Document 08/01/18 13:40 LRN (Rec: 08/01/18 14:39 LRN [id number]) Cervical Spine Range of Motion Cervical Spine Passive Percentage Testing Position Sitting Rotation Left 75 Rotation Right 70 ROM Limitations Pain Comments SB: 10 deg's left, 27 deg's right. Rot: 64 deg's left, 57 deg's right PT-OP-M Strength Start: 06/02/18 09:39 Freq: Status: Active Protocol: Document 06/03/18 12:45 LRN (Rec: 06/03/18 14:42 LRN [id number]) Cervical Spine Strength Cervical Spine Manual Muscle Testing Reason Not Measured WFL Shoulder Strength Shoulder Manual Muscle Testing Right Reason Not Measured WFL Left Reason Not Measured WFL Elbow/Forearm Strength Elbow and Forearm Manual Muscle Testing Right Flexion (C6) 4 Good Extension (C7) 5 Normal Left Flexion (C6) 5 Normal Extension (C7) 5 Normal PT-OP-Q Treatments Start: 06/02/18 09:39 Freq: Status: Active Protocol: Document 08/08/18 11:17 LRN (Rec: 08/08/18 12:13 LRN [id number]) Therapeutic Exercises Supine Exercises Deep cervical flexors Supine Exercise Name Neck elongation Side right Reps/Minutes 5' Full body extension Supine Exercise Name Arching UB and scapular pinches, and pressing arms into table Side bilateral Reps/Minutes 15 x 2 Comments Knees bent, Scap pinches Full body ext Supine Exercise Name Arching upper back, and pressing arms into table Reps/Minutes 4' Comments Knees straight. pressing arms into table. Sidelying Exercises R LB strengthening Sidelying Exercise Name L sidelie: R Hip Francisco Hold with ext Comments Assist needed to move R LE. Pt unable to hold in AB L arm lift with scapular retract Sidelying Exercise Name L interscapular strengthening Side left Resistance 1# Reps/Minutes 10x1 Manual Therapy Treatment Manual Techniques R upper thoracic stretch Type Manual stretch into L sidebend Body Location R upper body lateral trunk Body Position L Sidelie with folded towel under ribs at L3-L5 level Comments MFR Self-Care/Home Management Treatment Education Patient Education Home Exercise Program Activities Self-Care/Home Management Activities Pt to add weight to L hand with arm AB in R sidelie. PT-OP-R Modalities Start: 06/02/18 09:39 Freq: Status: Active Protocol: Document 08/08/18 11:17 LRN (Rec: 08/08/18 12:13 LRN [id number]) Electric Stimulation Electric Stimulation IFC Body Location Upper thoracic Duration (Minutes) 15 Intensity 10 Target/Sweep Sweep Patient Position Supine Combined With Heat/Cold Hot Pack Comments Hot pack: back Postion: supine with legs extended PT-OP-T Assessment and Plan Start: 06/02/18 09:39 Freq: Status: Active Protocol: Document 08/08/18 11:17 LRN (Rec: 08/08/18 12:13 LRN [id number]) Physical Therapy Assessment Goals Six Impairment R shoulder pain (3/10) Long-Term Goal (LTG) 0/10 prior to d/c pain in R shoulder Achieved 12/23/17 LTG Duration 09/16/28 (Goal Met at rest) Five Impairment Gait tolerance Dustless Operator Goal (LTG) Pt will report being back to prior level of gait outdoors without assistive device prior to d/c. Achieved 12/23/17. LTG Duration 09/16/18 Four Impairment Decreased neck mobility Short Term Goal (STG) Pt will be independent with a HEP of neck mobility exercises . STG Duration 06/10/18 (Goal Met) Three Impairment Decreased shoulder mobility Short Term Goal (STG) Pt will be independent with a HEP of shoulder mobility exercises. STG Duration 06/17/18 Two Impairment L upper back pain rated 5/10. Long-Term Goal (LTG) Pt will be able to reach overhead with L upper back pain no greater than 3/10. LTG Duration 07/21/18. One Impairment Pt lacks appropriate self care program. Long-Term Goal (LTG) Pt will be independent on an self care HEP to manage her back pain. LTG Duration 07/21/18. Assessment Summary Assessment + response to nighttime positional training, pt's pain is 50% less on waking in the morning. Hip flexors are tight making pure hip AB difficult. Physical Therapy Plan Frequency and Duration Frequency of Treatment 2x/Week Plan of Care Start Date 06/03/18 Plan of Care End Date 09/16/18 Next Visit Focus/Plan Next Note Type Treatment Note Next Visit Plan Assess for pain in R shoulder and L upper back pain with reaching overhead. Issue HEP for shoulder ROM ex's. Continue to progress stretching/strengthening ( standing) as able for scoliosis. Assess pt's painfree ability to reach overhead. Progress DLS and thoracic/lumbar program.
--- NOTE | 2018-08-11 17:22 | PT.OTN ---
Current Diagnoses Pain in right shoulder (08/11/18) Physical Therapy Treatment Note PT-OP-A Visit Information Start: 06/02/18 09:39 Freq: Status: Active Protocol: Document 08/11/18 09:05 LRN (Rec: 08/11/18 09:48 LRN [id number]) Out-Patient Physical Therapy Visit Information Visit Information Visit Type Treatment Note Visit Start Time 09:05 Visit Stop Time 10:00 Total Visit Minutes 55 Visit Number Number of WAIST PLEATER Visits 0 Evaluation Information Evaluation Date 06/03/18 Precautions Precautions Osteoporosis, Closed L1 vertebral fracture. PT-OP-B Current Condition Start: 06/02/18 09:39 Freq: Status: Active Protocol: Document 06/03/18 12:45 LRN (Rec: 06/03/18 14:42 LRN [id number]) Current Condition History of Current Condition Onset Date 2 yrs ago Current Complaints Constant L>R upper back pain that worsens when using arms. History of Current Condition Pt has severe idopathic scoliosis of the spine with ongoing neck and back pain. She states she has had back pain for years but due to a recent L1 compression fracture followed by a prison stay, Dr. Mendoza referred her to Dr. Portillo, who then referred her to Dr. Thompson. She states Dr Jeanette Thompson wants her to get a neck stretch program and he will give her trigger point injections starting next month . Prior Treatments and Tests X-rays: Results unavailable. 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 Future Testing and Treatments Planned Trigger point injections by Dr Jeanette Thompson. Treatment Goals Patient/Caregiver Goals Pt goal is to be taught neck stretch ex's and to get pain relief. She would like to be able to reach overhead with less discomfort (pain level no greater than 3/10). She states currently her pain level is 5/10. Prior Functional Status Baseline Function- ADL's Independent Baseline Function- Mobility Independent Baseline Function- Work/School Limited with lifting no more than 10# due to osteoporosis. Current Functional Impairments (Reported) Functional Limitations- ADL's Increased upper back pain (L>R ) with reaching overhead. Personal Factors Other Personal Factors That May Effect Age (77). Therapy/Recovery Co-morbidities: Osteoporosis, Idiopathic Scoliosis, Stress induced cardiomyopathy, R distal radius fracture, L1 compression fracture. Lives alone. Granddaughter ( 12 yrs old) helps her 4 days/ week. PT-OP-C Subjective Start: 06/02/18 09:39 Freq: Status: Active Protocol: Document 08/11/18 09:05 LRN (Rec: 08/11/18 09:48 LRN [id number]) OP-PT Subjective Patient Comments Patient Comments States her mid back and bilateral shoulder pain is 4/ 10 when reaching upward. States she has not done her stretch ex's this morning; therefore she is more uncomfortable than usual. OP-PT Pain Assessment Pain Assessment Grid Paper Pain Assessment Grid Completed No Location Bilateral Shoulder Intensity 4 Scale Used Numeric (1 - 10) Bilateral Lower Back Pain Location Details midback Intensity 4 Scale Used Numeric (1 - 10) PT-OP-F Manual Assessment Start: 06/02/18 09:39 Freq: Status: Active Protocol: Document 06/03/18 12:45 LRN (Rec: 06/03/18 14:42 LRN [id number]) Manual Assessments Soft Tissue Assessment Soft Tissue Mobility Assessment Tender with increased soft tissue tension at L upper back . Tenderness of L upper thoracic and mid thoracic paraspinal musculature. Joint Mobility Assessment Joint Mobility Assessment Decreased joint mobility of Cervical spine with L sidebend and L rotation. Decreased thoracic and lumbar joint mobility for extension. PT-OP-J Posture/Palpation/Skin Start: 06/02/18 09:39 Freq: Status: Active Protocol: Document 06/03/18 12:45 LRN (Rec: 06/03/18 14:42 LRN [id number]) Posture Evaluation Position Sitting Head/C-Spine Posture Forward Head T-Spine Posture Increased Kyphosis L-Spine Posture Flattened Decreased Lordosis Shoulder Posture (L) Rounded (R) Rounded (L) Elevated Arm Posture (L) Internally Rotated (R) Internally Rotated Pelvis Posture Posterior Tilted PT-OP-K Range of Motion Start: 06/02/18 09:39 Freq: Status: Active Protocol: Document 08/01/18 13:40 LRN (Rec: 08/01/18 14:39 LRN [id number]) Cervical Spine Range of Motion Cervical Spine Passive Percentage Testing Position Sitting Rotation Left 75 Rotation Right 70 ROM Limitations Pain Comments SB: 10 deg's left, 27 deg's right. Rot: 64 deg's left, 57 deg's right PT-OP-M Strength Start: 06/02/18 09:39 Freq: Status: Active Protocol: Document 06/03/18 12:45 LRN (Rec: 06/03/18 14:42 LRN [id number]) Cervical Spine Strength Cervical Spine Manual Muscle Testing Reason Not Measured WFL Shoulder Strength Shoulder Manual Muscle Testing Right Reason Not Measured WFL Left Reason Not Measured WFL Elbow/Forearm Strength Elbow and Forearm Manual Muscle Testing Right Flexion (C6) 4 Good Extension (C7) 5 Normal Left Flexion (C6) 5 Normal Extension (C7) 5 Normal PT-OP-Q Treatments Start: 06/02/18 09:39 Freq: Status: Active Protocol: Document 08/11/18 09:05 LRN (Rec: 08/11/18 09:48 LRN [id number]) Therapeutic Exercises Supine Exercises Deep cervical flexors Supine Exercise Name Neck elongation Side right Reps/Minutes 5' Full body extension Supine Exercise Name Arching UB, scapular pinches, neck elongation, and pressing arms into table Side bilateral Reps/Minutes 15 x 2 Comments Knees bent, Scap pinches Full body ext Supine Exercise Name Arching upper back, and pressing arms into table Reps/Minutes 4' Comments Knees straight. pressing arms into table. Sidelying Exercises R LB strengthening Sidelying Exercise Name L sidelie: R Hip Francisco Hold with ext Comments Assist needed to move R LE. Pt unable to hold in AB L arm lift with scapular retract Sidelying Exercise Name L interscapular strengthening Side left Resistance 1# Reps/Minutes 15x2 Comments Folded towel under body ~T3-T4 area Sitting Exercises Upper thoracic extension Sitting Exercise Name End range shoulder flex Standing Exercises L intrascapular strengthening Side left Equipment Used #2 TB Reps/Minutes 20x PT-OP-R Modalities Start: 06/02/18 09:39 Freq: Status: Active Protocol: Document 08/11/18 09:05 LRN (Rec: 08/11/18 17:04 LRN [id number]) Electric Stimulation Electric Stimulation IFC Body Location Upper thoracic Duration (Minutes) 15 Intensity 10 Target/Sweep Sweep Patient Position Supine Combined With Heat/Cold Hot Pack Comments Hot pack: back Postion: supine with legs extended, pillow under legs. PT-OP-T Assessment and Plan Start: 06/02/18 09:39 Freq: Status: Active Protocol: Document 08/11/18 09:05 LRN (Rec: 08/11/18 09:48 LRN [id number]) Physical Therapy Assessment Goals Six Impairment R shoulder pain (3/10) Residential Goal (LTG) 0/10 prior to d/c pain in R shoulder Achieved 12/23/17 LTG Duration 09/16/28 (Goal Met at rest) Five Impairment Gait tolerance Threat Monitoring Analyst Goal (LTG) Pt will report being back to prior level of gait outdoors without assistive device prior to d/c. Achieved 12/23/17. LTG Duration 09/16/18 Four Impairment Decreased neck mobility Short Term Goal (STG) Pt will be independent with a HEP of neck mobility exercises . STG Duration 06/10/18 (Goal Met) Three Impairment Decreased shoulder mobility Short Term Goal (STG) Pt will be independent with a HEP of shoulder mobility exercises. STG Duration 06/17/18 Two Impairment L upper back pain rated 5/10. Residential Goal (LTG) Pt will be able to reach overhead with L upper back pain no greater than 3/10. LTG Duration 07/21/18. One Impairment Pt lacks appropriate self care program. Residential Goal (LTG) Pt will be independent on an self care HEP to manage her back pain. LTG Duration 07/21/18. Progress Towards Goals Progress Towards Goals Progressing Toward Goals Slow Progress due to Activity Tolerance Slow Progress due to Medical Issues Progress Comments Overall pt is slowly increasing in level of activity tolerance. Assessment Summary Assessment Pt's pain with reaching overhead is 4/10 in the shoulders and upper back. Hip flexors are tight making pure hip AB difficult. Further thoracic ext strengthening is needed. Physical Therapy Plan Frequency and Duration Frequency of Treatment 2x/Week Plan of Care Start Date 06/03/18 Plan of Care End Date 09/16/18 Next Visit Focus/Plan Next Note Type Treatment Note Next Visit Plan Issue HEP for shoulder ROM ex' s. Continue to progress stretching/strengthening ( standing) as able for kyphosis . Check scoliosis. Progress DLS and thoracic/lumbar program.
--- NOTE | 2018-08-18 14:39 | PT.OTN ---
Current Diagnoses Pain in right shoulder (08/18/18) Physical Therapy Treatment Note PT-OP-A Visit Information Start: 06/02/18 09:39 Freq: Status: Active Protocol: Document 08/18/18 09:04 LRN (Rec: 08/18/18 14:25 LRN [id number]) Out-Patient Physical Therapy Visit Information Visit Information Visit Type Treatment Note Visit Start Time 09:04 Visit Stop Time 09:55 Total Visit Minutes 51 Visit Number 15/20 Number of EVP [place] Visits 0 Evaluation Information Evaluation Date 06/03/18 PT-OP-B Current Condition Start: 06/02/18 09:39 Freq: Status: Active Protocol: Document 06/03/18 12:45 LRN (Rec: 06/03/18 14:42 LRN [id number]) Current Condition History of Current Condition Onset Date 2 yrs ago Current Complaints Constant L>R upper back pain that worsens when using arms. History of Current Condition Pt has severe idopathic scoliosis of the spine with ongoing neck and back pain. She states she has had back pain for years but due to a recent L1 compression fracture followed by a intermediate stay, Dr. Mendoza referred her to Dr. Portillo, who then referred her to Dr. Thompson. She states Dr Jeanette Thompson wants her to get a neck stretch program and he will give her trigger point injections starting next month . Prior Treatments and Tests X-rays: Results unavailable. 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 Future Testing and Treatments Planned Trigger point injections by Dr Jeanette Thompson. Treatment Goals Patient/Caregiver Goals Pt goal is to be taught neck stretch ex's and to get pain relief. She would like to be able to reach overhead with less discomfort (pain level no greater than 3/10). She states currently her pain level is 5/10. Prior Functional Status Baseline Function- ADL's Independent Baseline Function- Mobility Independent Baseline Function- Work/School Limited with lifting no more than 10# due to osteoporosis. Current Functional Impairments (Reported) Functional Limitations- ADL's Increased upper back pain (L>R ) with reaching overhead. Personal Factors Other Personal Factors That May Effect Age (77). Therapy/Recovery Co-morbidities: Osteoporosis, Idiopathic Scoliosis, Stress induced cardiomyopathy, R distal radius fracture, L1 compression fracture. Lives alone. Granddaughter ( 12 yrs old) helps her 4 days/ week. PT-OP-C Subjective Start: 06/02/18 09:39 Freq: Status: Active Protocol: Document 08/18/18 09:04 LRN (Rec: 08/18/18 09:49 LRN [id number]) OP-PT Subjective Patient Comments Patient Comments Doing ex's 2x/day. No complaints, no change. Patient Reported Progress Same PT-OP-F Manual Assessment Start: 06/02/18 09:39 Freq: Status: Active Protocol: Document 06/03/18 12:45 LRN (Rec: 06/03/18 14:42 LRN [id number]) Manual Assessments Soft Tissue Assessment Soft Tissue Mobility Assessment Tender with increased soft tissue tension at L upper back . Tenderness of L upper thoracic and mid thoracic paraspinal musculature. Joint Mobility Assessment Joint Mobility Assessment Decreased joint mobility of Cervical spine with L sidebend and L rotation. Decreased thoracic and lumbar joint mobility for extension. PT-OP-J Posture/Palpation/Skin Start: 06/02/18 09:39 Freq: Status: Active Protocol: Document 06/03/18 12:45 LRN (Rec: 06/03/18 14:42 LRN [id number]) Posture Evaluation Position Sitting Head/C-Spine Posture Forward Head T-Spine Posture Increased Kyphosis L-Spine Posture Flattened Decreased Lordosis Shoulder Posture (L) Rounded (R) Rounded (L) Elevated Arm Posture (L) Internally Rotated (R) Internally Rotated Pelvis Posture Posterior Tilted PT-OP-K Range of Motion Start: 06/02/18 09:39 Freq: Status: Active Protocol: Document 08/01/18 13:40 LRN (Rec: 08/01/18 14:39 LRN [id number]) Cervical Spine Range of Motion Cervical Spine Passive Percentage Testing Position Sitting Rotation Left 75 Rotation Right 70 ROM Limitations Pain Comments SB: 10 deg's left, 27 deg's right. Rot: 64 deg's left, 57 deg's right PT-OP-M Strength Start: 06/02/18 09:39 Freq: Status: Active Protocol: Document 06/03/18 12:45 LRN (Rec: 06/03/18 14:42 LRN [id number]) Cervical Spine Strength Cervical Spine Manual Muscle Testing Reason Not Measured WFL Shoulder Strength Shoulder Manual Muscle Testing Right Reason Not Measured WFL Left Reason Not Measured WFL Elbow/Forearm Strength Elbow and Forearm Manual Muscle Testing Right Flexion (C6) 4 Good Extension (C7) 5 Normal Left Flexion (C6) 5 Normal Extension (C7) 5 Normal PT-OP-Q Treatments Start: 06/02/18 09:39 Freq: Status: Active Protocol: Document 08/18/18 09:04 LRN (Rec: 08/18/18 09:49 LRN [id number]) Therapeutic Exercises Supine Exercises Full body ext Supine Exercise Name Arching upper back, and pressing arms into table Reps/Minutes 4' Comments Knees straight. pressing arms into table. Prone Exercises MODESTA Prone Exercise Name Minimal MODESTA lift Side bilateral Reps/Minutes 10x Comments Pt moves very slowly Arm lifts Prone Exercise Name Single left and double arm lifts Reps/Minutes 10x Comments Pt moves very slowly, v.cuing for breathing. Sidelying Exercises R LB strengthening Sidelying Exercise Name L sidelie: R hip AB & Clamshell Comments Assist needed to move R LE into AB L arm lift with scapular retract Sidelying Exercise Name L interscapular strengthening Side left Resistance Lev 1 T-Band Reps/Minutes 12 x Comments Folded towel under body ~T3-T4 area Self-Care/Home Management Treatment Education Patient Education Home Exercise Program Activities Self-Care/Home Management Activities I/S pt in Prone on Elbows positioning with minimal lift. PT-OP-R Modalities Start: 06/02/18 09:39 Freq: Status: Active Protocol: Document 08/18/18 09:04 LRN (Rec: 08/18/18 09:49 LRN [id number]) Electric Stimulation Electric Stimulation IFC Body Location Upper thoracic Duration (Minutes) 15 Intensity 13 Target/Sweep Sweep Patient Position Supine Combined With Heat/Cold Hot Pack Comments Hot pack: back Postion: supine with legs extended, 2 folded towels under legs. PT-OP-T Assessment and Plan Start: 06/02/18 09:39 Freq: Status: Active Protocol: Document 08/18/18 09:04 LRN (Rec: 08/18/18 09:49 LRN [id number]) Physical Therapy Assessment Goals Six Impairment R shoulder pain (3/10) Half-Way Goal (LTG) 0/10 prior to d/c pain in R shoulder Achieved 12/23/17 LTG Duration 09/16/28 (Goal Met at rest) Five Impairment Gait tolerance Unit Assistant Goal (LTG) Pt will report being back to prior level of gait outdoors without assistive device prior to d/c. Achieved 12/23/17. LTG Duration 09/16/18 Four Impairment Decreased neck mobility Short Term Goal (STG) Pt will be independent with a HEP of neck mobility exercises . STG Duration 06/10/18 (Goal Met) Three Impairment Decreased shoulder mobility Short Term Goal (STG) Pt will be independent with a HEP of shoulder mobility exercises. STG Duration 06/17/18 Two Impairment L upper back pain rated 5/10. Half-Way Goal (LTG) Pt will be able to reach overhead with L upper back pain no greater than 3/10. LTG Duration 07/21/18. One Impairment Pt lacks appropriate self care program. Half-Way Goal (LTG) Pt will be independent on an self care HEP to manage her back pain. LTG Duration 07/21/18. Assessment Summary Assessment Pain with reaching overhead persists due to severe kyphosis. Hip flexors are tight and weakness is present in Glut Medius, making pure hip AB difficult. Thoracic ext strengthening and progressing balance is needed. [ End ] Physical Therapy Plan Frequency and Duration Frequency of Treatment 2x/Week Plan of Care Start Date 06/03/18 Plan of Care End Date 09/16/18 Next Visit Focus/Plan Next Note Type Treatment Note Next Visit Plan Recheck progress to goals. Issue HEP for shoulder ROM ex' s. Continue to progress stretching/strengthening ( standing) as able for kyphosis . Progress DLS and thoracic/ lumbar program. [ End ]
--- NOTE | 2019-02-05 15:49 | PT.OPDS ---
Current Diagnoses Pain in right shoulder (08/18/18) Provider Visit Care Team Role Provider Type Charles Castaneda MD Family Provider Physician Primary Care Provider Specialty: Internal Medicine Address: [address] [place] [address], [id number] Email: [email or web address] Portillo MD Attending Provider Physician Specialty: Orthopedic Surgery Address: [address] [place] [address], [id number] Email: [email or web address] Visit Number Visit Number Discharge Summary PT-OP-B Current Condition Start: 06/02/18 09:39 Freq: Status: Active Protocol: Document 06/03/18 12:45 LRN (Rec: 06/03/18 14:42 LRN [id number]) Current Condition History of Current Condition Onset Date 2 yrs ago Current Complaints Constant L>R upper back pain that worsens when using arms. History of Current Condition Pt has severe idopathic scoliosis of the spine with ongoing neck and back pain. She states she has had back pain for years but due to a recent L1 compression fracture followed by a [facility] stay, Dr. Mendoza referred her to Dr. Portillo, who then referred her to Dr. Thompson. She states Dr Jeanette Thompson wants her to get a neck stretch program and he will give her trigger point injections starting next month . Prior Treatments and Tests X-rays: Results unavailable. 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 Future Testing and Treatments Planned Trigger point injections by Dr Jeanette Thompson. Treatment Goals Patient/Caregiver Goals Pt goal is to be taught neck stretch ex's and to get pain relief. She would like to be able to reach overhead with less discomfort (pain level no greater than 3/10). She states currently her pain level is 5/10. Prior Functional Status Baseline Function- ADL's Independent Baseline Function- Mobility Independent Baseline Function- Work/School Limited with lifting no more than 10# due to osteoporosis. Current Functional Impairments (Reported) Functional Limitations- ADL's Increased upper back pain (L>R ) with reaching overhead. Personal Factors Other Personal Factors That May Effect Age (77). Therapy/Recovery Co-morbidities: Osteoporosis, Idiopathic Scoliosis, Stress induced cardiomyopathy, R distal radius fracture, L1 compression fracture. Lives alone. Granddaughter ( 12 yrs old) helps her 4 days/ week. PT-OP-T Assessment and Plan Start: 06/02/18 09:39 Freq: Status: Active Protocol: Document 02/05/19 15:38 LRN (Rec: 02/05/19 15:49 LRN [id number]) Physical Therapy Assessment Goals Six Impairment R shoulder pain (3/10) Skilled Nursing Goal (LTG) 0/10 prior to d/c pain in R shoulder Achieved 12/23/17 LTG Duration 09/16/28 (Goal Met at rest) Five Impairment Gait tolerance Skilled Nursing Goal (LTG) Pt will report being back to prior level of gait outdoors without assistive device prior to d/c. Achieved 12/23/17. LTG Duration 09/16/18 Four Impairment Decreased neck mobility Short Term Goal (STG) Pt will be independent with a HEP of neck mobility exercises . STG Duration 06/10/18 (Goal Met) Three Impairment Decreased shoulder mobility Short Term Goal (STG) Pt will be independent with a HEP of shoulder mobility exercises. STG Duration 06/17/18 Two Impairment L upper back pain rated 5/10. Derrick Hand Goal (LTG) Pt will be able to reach overhead with L upper back pain no greater than 3/10. LTG Duration 07/21/18. One Impairment Pt lacks appropriate self care program. Skilled Nursing Goal (LTG) Pt will be independent on an self care HEP to manage her back pain. LTG Duration 07/21/18. Progress Towards Goals Progress Towards Goals Progressing Toward Goals Slow Progress due to Activity Tolerance Slow Progress due to Medical Issues Progress Comments Overall pt is slowly increasing in level of activity tolerance. Assessment Summary Assessment Pt was last seen 08/18/18 and canceled her remaining 2 visits; therefore I was unable to obtain a final assessment. She was given a HEP for her shoulder and did have a decrease in shoulder pain at rest. I feel the pt would have benefitted from further physical therapy. Physical Therapy Plan Discharge Physical Therapy Discharge Reasons No Longer Attending PT Discharge Comments Pt's plan of care has . She will need a new referral to return to physical therapy .
== END 2019-02-17 15:15 | disposition home or self-care (01) ==
LOC: PHYS 09:00
PROVIDERS: Family Provider Internal Medicine; PCP Internal Medicine; Visit Provider Orthopaedic Surgery
DX: M25.511 Pain in right shoulder (principal)
CPT/HCPCS: 97014; 97032; 97110; 97140; 97161; 97535; G0283

== ENCOUNTER → 2018-08-30 16:49 | Outpatient (CLI) | payer MEDICARE, SELFPAY ==
--- NOTE | 2018-08-30 16:53 | DI.RAD.S_ITS ---
PROCEDURE: XR CHEST 2V INDICATIONS: chf TECHNIQUE: 2 views of the chest were acquired. COMPARISON: [facility], CHEST 1 VIEW, 09/05/2017, 15:05. [facility], CHEST 1 VIEW, 09/02/2017, 14:12. FINDINGS: Surgical changes and devices: None. Lungs and pleura: Lungs are edematous. Slight subpulmonic pleural effusions and no pneumothorax. Mediastinum: Mediastinal contours are abnormal with a large hiatal hernia superimposed on the heart as has been previously the case. Heart size is mildly enlarged. Bones and chest wall: No suspicious bony abnormalities. Soft tissues appear unremarkable. IMPRESSION: Mild acute exacerbation of chronic CHF pattern. Very large hiatal hernia superimposed on the heart, previously present. The extent of the herniation is likely an indicator of gastric inversion with the greater curvature of the stomach directed cephalad. Dictated by: Haroon Tracy M.D. on 08/31/2018 at 7:47 Approved by: Haroon Tracy M.D. on 08/31/2018 at 7:53
[2018-08-30 17:50] LABS: Add Manual Diff / Slide Review NO; Basophils Absolute Auto 0 /uL (0-100); Basophils Percent Auto 0.5 % (0-2); Eosinophils Absolute Auto 100 /uL (0-450); Eosinophils Percent Auto 1.1 % (2-4); Hemoglobin 13.3 g/dL (12.0-16.0); Lymphocytes Absolute Auto 1000 /uL (1100-4500); Lymphocytes Percent Auto 13.2 % (25-40); Mean Corpuscular HGB Conc 30.9 % (30-36); Mean Corpuscular Hemoglobin 29.8 PG (26-34); Mean Corpuscular Volume 96.3 fL (80-100); Monocytes Absolute Auto 500 /uL (0-900); Neutrophils Absolute Auto 6200 /uL (1500-7000); Neutrophils Percent Auto 79.2 % (50-75); Platelet Count 259 X10^3/uL (150-400); Red Blood Cell Count 4.47 X10^6/uL (4.0-5.2); Red Cell Distribution Width 15.5 % (11.6-14.8); White Blood Cell Count 7.8 X10^3/uL (4.5-11.0)
[2018-08-30 18:05] LABS: Alanine Aminotransferase 76 IU/L (9-52); Albumin 3.8 g/dL (3.5-5.0); Albumin Globulin Ratio 1.3 (1.0-2.8); Alkaline Phosphatase 78 U/L (38-126); Aspartate Aminotransferase 35 IU/L (14-36); BUN Creatinine Ratio 31.1 (6-22); Bilirubin Total 0.7 mg/dL (0.2-1.3); Blood Urea Nitrogen 28 mg/dL (7-17); Calcium 9.5 mg/dL (8.4-10.2); Carbon Dioxide 28 mmol/L (22-32); Chloride 107 mmol/L (98-107); Estimated Glomerular Filt Rate > 60.0 mL/min (>60); Globulin 2.9 g/dL (1.7-4.1); Glucose 104 mg/dL (80-110); HEMOLYSIS < 15 (0-50); Potassium 4.4 mmol/L (3.4-5.1); Sodium 143 mmol/L (137-145); Total Protein 6.7 g/dL (6.3-8.2)
[2018-08-30 18:11] LABS: B Type Natriuretic Peptide 2060 (<100)
[2018-08-30 18:57] LABS: Thyroid Stimulating Hormone 2.59 uIU/mL (0.47-4.68)
[2018-08-30 19:06] LABS: Free T4, Direct Thyroxine 1.78 ng/dL (0.78-2.19)
== END ==
PROVIDERS: Family Provider Internal Medicine; PCP Internal Medicine; Visit Provider Internal Medicine
DX: I50.9 Heart failure, unspecified (principal); K25.7 Chronic gastric ulcer without hemorrhage or perforation; R53.83 Other fatigue; K44.9 Diaphragmatic hernia without obstruction or gangrene
CPT/HCPCS: 36415; 71046; 80053; 83880; 84439; 84443; 85025

== ENCOUNTER → 2018-09-08 14:08 | Outpatient (CLI) | payer MEDICARE, SELFPAY ==
[2018-09-08 14:47] LABS: B Type Natriuretic Peptide 2390 (<100)
[2018-09-08 15:26] LABS: BUN Creatinine Ratio 25.5 (6-22); Blood Urea Nitrogen 28 mg/dL (7-17); Calcium 9.7 mg/dL (8.4-10.2); Carbon Dioxide 34 mmol/L (22-32); Chloride 101 mmol/L (98-107); Estimated Glomerular Filt Rate 47.8 mL/min (>60); Glucose 102 mg/dL (80-110); HEMOLYSIS < 15 (0-50); Potassium 4.2 mmol/L (3.4-5.1); Sodium 142 mmol/L (137-145)
== END ==
PROVIDERS: PCP Internal Medicine; Visit Provider Internal Medicine
DX: I50.9 Heart failure, unspecified (principal)
CPT/HCPCS: 36415; 80048; 83880

== ENCOUNTER 2018-09-10 12:46 | Emergency (ER) | payer MEDICARE, SELFPAY ==
[2018-09-10 12:50] VITALS: BP 139/87; PULSE 110; RESP 22; TEMP 37.1; O2SAT 100
[2018-09-10 16:05] VITALS: BP 157/101; PULSE 113; RESP 16; O2SAT 98
[2018-09-10] MEDS: METOPROLOL IR 50 MG TABLET PO (16:46)
[2018-09-10 17:25] VITALS: BP 145/98; PULSE 102; RESP 18
[2018-09-10 17:34] VITALS: PULSE 97; RESP 16; O2SAT 97
--- NOTE | 2018-09-10 20:49 | ED.SKABFB ---
HPI - Skin/Abscess/Foreign Bdy <TRESSA Qiu - Last Filed: 09/10/18 21:46> General Chief complaint: Skin/Abscess/Foreign Body Stated complaint: states medication stuck in throat Time Seen by Provider: 09/10/18 16:13 Source: patient Mode of arrival: ambulatory Limitations: no limitations History of Present Illness HPI narrative: Patient is an 78-year-old female nonsmoker who presents by herself for chief complaint of throat irritation and a sensation of pill stuck in her throat. She states that she took her pills last night and has since felt a sensation of pill stuck in her throat. She denies any cough or congestion or fever. She denies any nausea vomiting or diarrhea. She denies any difficulty breathing. She states she is able to swallow her own spit drink fluids fine. Of note she is tachycardic and hypertensive upon arrival to the emergency department. She has not taken her metoprolol yet today. Related Data Home Medications Medication Instructions Recorded Confirmed vitamin E 400 unit PO DAILY #0 07/08/11 09/08/18 multivitamin 1 cap PO Q DAY #0 02/18/12 09/08/18 Previous Rx's Medication Instructions Recorded ferrous sulfate [Iron (ferrous 325 mg PO BID #60 tab 11/19/16 sulfate)] alendronate 70 mg tablet 70 mg PO QWEEK #12 tab 01/18/18 amlodipine [Norvasc] 10 mg PO DAILY #30 tab 02/03/18 metoprolol tartrate 50 mg PO BID #60 tab 02/03/18 omeprazole 40 mg capsule,delayed 40 mg PO QDAY #30 cap 06/27/18 release hydrocodone 5 mg-acetaminophen 325 See Rx Instructions PO Q4H PRN #90 08/05/18 mg tablet tab nortriptyline 50 mg PO HS #180 cap 08/15/18 gabapentin [Neurontin] 600 mg PO BID #60 tab 08/29/18 furosemide 20 mg tablet See Rx Instructions PO .COMPLEX 08/30/18 #60 tab potassium chloride ER 10 mEq 10 meq PO DAILY #60 cap 08/30/18 capsule,extended release Allergies Allergy/AdvReac Type Severity Reaction Status Date / Time No Known Drug Allergies Allergy Verified 09/10/18 12:53 Review of Systems <TRESSA Qiu - Last Filed: 09/10/18 21:46> Review of Systems GENERAL: Denies chills, fatigue, malaise, fever, sweats. HEENT: See HPI RESPIRATORY: Denies dyspnea, cough, wheezing, hemoptysis, sputum. CARDIOVASCULAR: Denies chest pain, palpitations, orthopnea, edema, GASTROINTESTINAL: Denies nausea, vomiting, abdominal pain, diarrhea, constipation, melena. : Denies dysuria, frequency, incontinence, hematuria, urinary retention. MUSCULOSKELETAL: denies weakness, joint pain, or bony pain SKIN: Denies rash, skin lesions, or other NEUROLOGIC: Denies weakness, headache, numbness, change in speech, confusion, seizures, incoordination. PSYCHIATRIC: No concerning psychosocial issues. 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) Glaucoma (Chronic ~11/2016) Closed L1 vertebral fracture (Resolved) Social History marital status: number of children: 2 household members: none lives independently: Yes caregiver/support person: Yes housing: house pets and animals: Yes education level: college (3 years) occupational status: other (Retired) Previous occupational history: [employer] Work[employer] kerry/church: [employer] travel history: other ([place]) leisure activities: reading and other (Meetings, Trips with granddaughter, knit, cooks.) Smoking Status: Former smoker Tobacco: How many years used: 8 Smokeless tobacco user: other (Cigarettes) quit status: quit date established (1956) second hand exposure: No alcohol intake: current substance use type: does not use Exam <TRESSA Qiu - Last Filed: 09/10/18 21:46> Narrative Exam Narrative: GENERAL: This is a well-nourished, well-developed patient, in no acute distress HEAD: Atraumatic. Normocephalic. No temporal or scalp tenderness. EYES: Pupils equal round and reactive. Extraocular motions intact. No scleral icterus. No injection or drainage. ENT: Nose without bleeding, purulent drainage or septal hematoma. Throat without erythema, tonsillar hypertrophy or exudate. Uvula midline. Airway patent. NECK: Trachea midline. No JVD or lymphadenopathy. Supple, nontender, no meningeal signs. CARDIOVASCULAR: Regular rate and rhythm RESPIRATORY: Clear to auscultation. Breath sounds equal bilaterally. No wheezes, rales, or rhonchi. no cough. No increased respiratory effort. GASTROINTESTINAL: Abdomen soft, non-tender, nondistended. No hepato-splenomegaly, or palpable masses. No guarding. EXTREMITIES: No clubbing, cyanosis, or edema. No joint tenderness, effusion, or edema noted. BACK: Nontender without deformity or crepitance. No flank tenderness. NEURO: AOx3. SKIN: No rash or erythema. Initial Vital Signs Initial Vital Signs: Vital Signs Temperature 98.8 F 09/10/18 12:50 Pulse Rate 110 H 09/10/18 12:50 Respiratory Rate 22 09/10/18 12:50 Blood Pressure 139/87 09/10/18 12:50 Pulse Oximetry 100 09/10/18 12:50 <Neil Fraser DO - Last Filed: 09/13/18 22:28> Initial Vital Signs Initial Vital Signs: Vital Signs Temperature 98.8 F 09/10/18 12:50 Pulse Rate 110 H 09/10/18 12:50 Respiratory Rate 22 09/10/18 12:50 Blood Pressure 139/87 09/10/18 12:50 Pulse Oximetry 100 09/10/18 12:50 Course <BRITTANY Qiu-ANNA - Last Filed: 09/10/18 21:46> Course Narrative: I checked on the patient several times throughout her stay in the emergency department. Orders Ordered: Discontinued Medications Metoprolol Tartrate (Lopressor) 50 mg PO NOW ONE Stop: 09/10/18 16:10 Last Admin: 09/10/18 16:46 Dose: 50 mg Vital Signs - 8 hr 09/10/18 16:05 09/10/18 17:25 09/10/18 17:34 Pulse Rate 113 H 102 H 97 H Respiratory Rate 16 18 16 Blood Pressure [Left Arm] 157/101 H 145/98 H Pulse Oximetry 98 97 <Neil Fraser DO - Last Filed: 09/13/18 22:28> Orders Ordered: Discontinued Medications Metoprolol Tartrate (Lopressor) 50 mg PO NOW ONE Stop: 09/10/18 16:10 Last Admin: 09/10/18 16:46 Dose: 50 mg Vital Signs - 8 hr 09/10/18 16:05 09/10/18 17:25 09/10/18 17:34 Pulse Rate 113 H 102 H 97 H Respiratory Rate 16 18 16 Blood Pressure [Left Arm] 157/101 H 145/98 H Pulse Oximetry 98 97 MDM - Skin/Abscess/Foreign Bdy <BRITTANY Qiu-BC - Last Filed: 09/10/18 21:46> MDM Narrative Medical decision making narrative: The patient presents with a chief complaint of the sensation of pill stuck in her throat. However the emergency department she is able to drink fluids without spitting or vomiting as well as take pills. I encouraged her to push fluids, eat soft foods and follow up with primary care provider if needed. I discussed come back to the emergency department if she cannot tolerate her own secretions or liquids. She was given metoprolol as per her daily dose in the emergency department her blood pressure and heart rate responded well. I discussed return precautions to the emergency department. Patient has no questions or concerns upon discharge. Discharge Plan Departure Patient Disposition: Home Clinical Impression: Throat pain Discharge Date/Time: 09/10/18 18:25 Interventions: ED Discharge Assessment Last Done: 09/10/18 18:25 Instructions: Sore Throat, DI for Esophageal Dysphagia Activity Restrictions/Additional Instructions: You are able to tolerate fluids and medication in the emergency department. Please drink lots of liquids, eat soft foods. Please come back to the emergency department if you cannot swallow your own spit, tolerate oral fluids or if you have any acute concerns. Prescriptions: No Action vitamin E 400 unit Capsule 400 unit PO DAILY Qty: 0 RF: 0 multivitamin 1 cap PO Q DAY Qty: 0 RF: 0 ferrous sulfate [Iron (ferrous sulfate)] 325 MG tablet 325 mg PO BID Qty: 60 RF: 11 omeprazole 40 mg capsule,delayed release(DR/EC) 40 mg PO QDAY Qty: 30 RF: 3 nortriptyline 25 mg capsule 50 mg PO HS Qty: 180 RF: 3 gabapentin [Neurontin] 600 mg tablet 600 mg PO BID Qty: 60 RF: 3 alendronate [Fosamax] 70 mg tablet 70 mg PO QWEEK Qty: 12 RF: 3 hydrocodone-acetaminophen 5-325 mg tablet See Rx Instructions PO Q4H PRN (Reason: pain in back) Qty: 90 RF: 0 potassium chloride 10 mEq capsule, extended release 10 meq PO DAILY Qty: 60 RF: 3 furosemide 20 mg tablet See Rx Instructions PO .COMPLEX Qty: 60 RF: 3 metoprolol tartrate 50 mg Tablet 50 mg PO BID Qty: 60 RF: 0 amlodipine [Norvasc] 5 mg Tablet 10 mg PO DAILY Qty: 30 RF: 0 Referrals: Charles Castaneda MD [Primary Care Provider] - <Neil Fraser DO - Last Filed: 09/13/18 22:28> Cosign ED Attending Jitendraature Attestation: I was immediately available in the department for consultation. Documentation has been reviewed. I agree with assessment and plan.
== END 2018-09-10 18:25 | disposition home or self-care (01) ==
PROVIDERS: Emergency Provider Nurse Practitioner Family; PCP Internal Medicine
DX: J02.9 Acute pharyngitis, unspecified (principal)
CPT/HCPCS: 99283

== ENCOUNTER → 2018-09-12 08:34 | Outpatient (CLI) | payer MEDICARE, SELFPAY ==
--- NOTE | 2018-09-12 08:36 | DI.ECHO.S_ITS ---
[facility] +---------+ : : [address] [place] : : : : [id number] : : : : Phone: [phone]+ Echocardiogram Report + + :Name: MICHELLE HAIDER Study Date: 09/12/2018 Height: 65 in : :[facility] Weight: 155 lb : : Gender: Female BSA: 1.8 m2 : :: 1940 Age: 78 yrs BP: 118/82 mmHg: :Reason For Study: Congestive Heart Failure : : Performed By: Bebe Wilson : :Referring: HATTIE PICKERING R : + + Interpretation Summary 1) Normal left ventricular size and thickness with severely reduced systolic function (EF 20-25%). 2) Mildly to moderately enlarged right ventricle with moderately reduced systolic function. 3) Severe right atrial enlargement. 4) There is moderate mitral regurgitation. 5) There is severe tricuspid regurgitation. 6) The right ventricular systolic pressure is estimated to be at least 40 mmHg based on an estimated right atrial pressure of 15 mm Hg. 7) The IVC is dilated (diameter is greater than 2.1 cm) and it collapses less than 50% with a sniff. This suggests a high right atrial pressure of 15 mm Hg. 8) Compared to the echo done 01/27/2017, LVEF has decreased from 60-65% to 20- 25% on this study. Procedure: A two-dimensional transthoracic echocardiogram with color flow and Doppler was performed. The study quality was technically good. Comparison is made with the echocardiogram of 01-27-17. The heart rate ranged between 85- 111 bpm during the study. Left Ventricle: The left ventricle is normal in size. There is normal left ventricular wall thickness. The ejection fraction is estimated to be 20-25%. Diastolic function could not be accurately assessed due to unobtainable data. Right Ventricle: The right ventricle is mild to moderately dilated. Right ventricular systolic function is moderately reduced. Atria: The left atrium is moderately dilated. The right atrium is severely dilated. The interatrial septum is intact with no evidence for an atrial septal defect. Mitral Valve: The mitral valve leaflets appear mildly thickened, but open well. There is moderate mitral regurgitation. Aortic Valve: The aortic valve is trileaflet. The aortic valve opens well. There is no aortic valve stenosis. No aortic regurgitation is present. Tricuspid Valve: The tricuspid valve leaflets are thin and pliable. There is severe tricuspid regurgitation. The right ventricular systolic pressure is estimated to be at least 40 mmHg based on an estimated right atrial pressure of 15 mm Hg. Pulmonic Valve: The pulmonic valve is normal in structure and function. There is trace pulmonic regurgitation. Great Vessels: The aortic root is normal size. The ascending aorta is at the upper limits of normal in size. The aortic arch is at the upper limits of normal in size. The IVC is dilated (diameter is greater than 2.1 cm) and it collapses less than 50% with a sniff. This suggests a high right atrial pressure of 15 mm Hg. Pericardium/ Pleura There is no pericardial effusion. There is no pleural effusion. MMode/2D Measurements & Calculations LVIDd: 5.0 cm Ao root diam: 3.3 cm LVIDs: 4.6 cm Aortic Jxn: 2.6 cm FS: 7.7 % asc Aorta Diam: 3.5 cm EPSS: 1.3 cm Ao Arch Diam (Prox Trans): 3.2 cm IVSd: 1.0 cm LVPWd: 1.00 cm LV triana. diameter/BSA (cm/m^2): 2.8 LV sys. diameter/BSA (cm/m^2): 2.6 LA dimension: 4.3 cm RA long axis: 6.5 cm LA A2 area: 23.1 cm2 RA area: 31.2 cm2 LA A4 area: 26.2 cm2 RA vol: 126.5 ml LA length (vol): 5.9 cm RA : 71.3 ml/m2 LA vol: 86.4 ml IVC diam: 2.3 cm LA vol index: 48.7 ml/m2 RVDd major: 7.6 cm RVD1 (basal): 5.1 cm LA Length_phl: 5.6 cm RVD2 (mid): 4.1 cm Doppler Measurements & Calculations Ao V2 max: 133.2 cm/sec Med Peak E' Nile: 2.4 cm/sec Ao V2 mean: 82.0 cm/sec Lat Peak E' Nile: 9.7 cm/sec Ao max P.1 mmHg MV P1/2t: 32.0 msec Ao mean P.2 mmHg MR ERO: 0.20 cm2 Ao V2 VTI: 17.3 cm TR max nile: 249.8 cm/sec MV V2 mean: 46.7 cm/sec TR max P.0 mmHg MV mean P.4 mmHg PA V2 max: 80.3 cm/sec MV V2 VTI: 13.5 cm PA V2 mean: 41.7 cm/sec PA mean P.95 mmHg PA Accel Time: 0.11 sec MV P1/2t max nile: 105.3 cm/sec MR flow rate: 104.4 cm3/sec MVA(P1/2t): 6.9 cm2 MR PISA radius: 0.65 cm Reading Physician:11:48 AM
== END ==
PROVIDERS: PCP Internal Medicine; Visit Provider Internal Medicine
DX: I08.1 Rheumatic disorders of both mitral and tricuspid valves (principal); I50.9 Heart failure, unspecified; R60.9 Edema, unspecified
CPT/HCPCS: 93306

== ENCOUNTER → 2018-10-14 10:22 | Outpatient (CLI) | payer MEDICARE, SELFPAY ==
[2018-10-14 11:14] LABS: Add Manual Diff / Slide Review NO; Basophils Absolute Auto 100 /uL (0-100); Basophils Percent Auto 1.1 % (0-2); Eosinophils Absolute Auto 100 /uL (0-450); Eosinophils Percent Auto 1.4 % (2-4); Hematocrit 43.1 % (36-46); Hemoglobin 13.6 g/dL (12.0-16.0); Lymphocytes Absolute Auto 1400 /uL (1100-4500); Mean Corpuscular HGB Conc 31.5 % (30-36); Mean Corpuscular Hemoglobin 30.1 PG (26-34); Mean Corpuscular Volume 95.4 fL (80-100); Monocytes Absolute Auto 500 /uL (0-900); Monocytes Percent Auto 7.5 % (3-14); Neutrophils Absolute Auto 4300 /uL (1500-7000); Platelet Count 300 X10^3/uL (150-400); Red Blood Cell Count 4.51 X10^6/uL (4.0-5.2); Red Cell Distribution Width 16.4 % (11.6-14.8); White Blood Cell Count 6.4 X10^3/uL (4.5-11.0)
[2018-10-14 11:27] LABS: Alanine Aminotransferase 34 IU/L (9-52); Albumin 3.8 g/dL (3.5-5.0); Albumin Globulin Ratio 1.2 (1.0-2.8); Alkaline Phosphatase 80 U/L (38-126); Aspartate Aminotransferase 22 IU/L (14-36); BUN Creatinine Ratio 24.5 (6-22); Bilirubin Total 0.7 mg/dL (0.2-1.3); Blood Urea Nitrogen 27 mg/dL (7-17); Calcium 9.2 mg/dL (8.4-10.2); Carbon Dioxide 31 mmol/L (22-32); Chloride 101 mmol/L (98-107); Estimated Glomerular Filt Rate 47.8 mL/min (>60); Globulin 3.3 g/dL (1.7-4.1); Glucose 142 mg/dL (80-110); HEMOLYSIS < 15 (0-50); Magnesium 2.1 mg/dL (1.6-2.3); Potassium 4.1 mmol/L (3.4-5.1); Sodium 140 mmol/L (137-145); Total Protein 7.1 g/dL (6.3-8.2)
== END ==
PROVIDERS: PCP Internal Medicine; Visit Provider Internal Medicine
DX: I50.22 Chronic systolic (congestive) heart failure (principal)
CPT/HCPCS: 36415; 80053; 83735; 85025

== ENCOUNTER → 2018-10-21 13:24 | Outpatient (CLI) | payer MEDICARE, SELFPAY ==
[2018-10-21 16:04] LABS: Blood Urea Nitrogen 27 mg/dL (7-17); Calcium 9.2 mg/dL (8.4-10.2); Carbon Dioxide 34 mmol/L (22-32); Chloride 99 mmol/L (98-107); Estimated Glomerular Filt Rate 53.3 mL/min (>60); Glucose 109 mg/dL (80-110); HEMOLYSIS < 15 (0-50); Sodium 141 mmol/L (137-145)
== END ==
PROVIDERS: PCP Internal Medicine; Visit Provider Internal Medicine
DX: I50.22 Chronic systolic (congestive) heart failure (principal)
CPT/HCPCS: 36415; 80048

== ENCOUNTER → 2018-11-04 13:19 | Outpatient (CLI) | payer MEDICARE, SELFPAY ==
[2018-11-04 13:54] LABS: Add Manual Diff / Slide Review NO; Basophils Absolute Auto 100 /uL (0-100); Basophils Percent Auto 1.3 % (0-2); Eosinophils Absolute Auto 100 /uL (0-450); Eosinophils Percent Auto 1.9 % (2-4); Hematocrit 43.2 % (36-46); Hemoglobin 13.9 g/dL (12.0-16.0); Lymphocytes Absolute Auto 1200 /uL (1100-4500); Lymphocytes Percent Auto 20.6 % (25-40); Mean Corpuscular HGB Conc 32.1 % (30-36); Mean Corpuscular Hemoglobin 30.7 PG (26-34); Mean Corpuscular Volume 95.5 fL (80-100); Monocytes Absolute Auto 500 /uL (0-900); Monocytes Percent Auto 8.5 % (3-14); Neutrophils Absolute Auto 3800 /uL (1500-7000); Neutrophils Percent Auto 67.7 % (50-75); Platelet Count 252 X10^3/uL (150-400); Red Blood Cell Count 4.53 X10^6/uL (4.0-5.2); Red Cell Distribution Width 17.5 % (11.6-14.8); White Blood Cell Count 5.6 X10^3/uL (4.5-11.0)
[2018-11-04 15:10] LABS: Alanine Aminotransferase 21 IU/L (9-52); Albumin 3.9 g/dL (3.5-5.0); Albumin Globulin Ratio 1.1 (1.0-2.8); Alkaline Phosphatase 68 U/L (38-126); Aspartate Aminotransferase 21 IU/L (14-36); BUN Creatinine Ratio 31.1 (6-22); Bilirubin Total 0.7 mg/dL (0.2-1.3); Blood Urea Nitrogen 28 mg/dL (7-17); Calcium 9.2 mg/dL (8.4-10.2); Carbon Dioxide 33 mmol/L (22-32); Chloride 102 mmol/L (98-107); Estimated Glomerular Filt Rate > 60.0 mL/min (>60); Globulin 3.5 g/dL (1.7-4.1); Glucose 125 mg/dL (80-110); HEMOLYSIS 17 (0-50); Potassium 4.3 mmol/L (3.4-5.1); Sodium 142 mmol/L (137-145); Total Protein 7.4 g/dL (6.3-8.2)
== END ==
PROVIDERS: Family Provider Internal Medicine; PCP Internal Medicine; Visit Provider Internal Medicine
DX: I50.22 Chronic systolic (congestive) heart failure (principal)
CPT/HCPCS: 36415; 80053; 85025

== ENCOUNTER → 2018-11-12 10:51 | Outpatient (CLI) | payer MEDICARE, SELFPAY ==
[2018-11-12 12:20] LABS: Add Manual Diff / Slide Review NO; Basophils Absolute Auto 100 /uL (0-100); Eosinophils Absolute Auto 100 /uL (0-450); Hematocrit 44.5 % (36-46); Hemoglobin 14.1 g/dL (12.0-16.0); Lymphocytes Absolute Auto 1000 /uL (1100-4500); Lymphocytes Percent Auto 16.2 % (25-40); Mean Corpuscular HGB Conc 31.6 % (30-36); Mean Corpuscular Hemoglobin 30.4 PG (26-34); Mean Corpuscular Volume 96.3 fL (80-100); Monocytes Absolute Auto 400 /uL (0-900); Monocytes Percent Auto 6.8 % (3-14); Neutrophils Absolute Auto 4800 /uL (1500-7000); Platelet Count 248 X10^3/uL (150-400); Red Blood Cell Count 4.63 X10^6/uL (4.0-5.2); White Blood Cell Count 6.5 X10^3/uL (4.5-11.0)
[2018-11-12 15:13] LABS: Alanine Aminotransferase 20 IU/L (9-52); Albumin Globulin Ratio 1.1 (1.0-2.8); Alkaline Phosphatase 73 U/L (38-126); Aspartate Aminotransferase 26 IU/L (14-36); BUN Creatinine Ratio 26.7 (6-22); Bilirubin Total 0.9 mg/dL (0.2-1.3); Blood Urea Nitrogen 24 mg/dL (7-17); Carbon Dioxide 30 mmol/L (22-32); Chloride 98 mmol/L (98-107); Estimated Glomerular Filt Rate > 60.0 mL/min (>60); Globulin 3.5 g/dL (1.7-4.1); Glucose 120 mg/dL (80-110); HEMOLYSIS 16 (0-50); Sodium 139 mmol/L (137-145); Total Protein 7.5 g/dL (6.3-8.2)
[2018-11-12 18:05] LABS: Magnesium 2.1 mg/dL (1.6-2.3)
== END ==
PROVIDERS: Family Provider Internal Medicine; PCP Internal Medicine; Visit Provider Internal Medicine
DX: I50.22 Chronic systolic (congestive) heart failure (principal)
CPT/HCPCS: 36415; 80053; 83735; 85025

== ENCOUNTER → 2018-11-29 11:51 | Outpatient (CLI) | payer MEDICARE, SELFPAY ==
[2018-11-29 12:56] LABS: BUN Creatinine Ratio 27.8 (6-22); Blood Urea Nitrogen 25 mg/dL (7-17); Calcium 9.1 mg/dL (8.4-10.2); Carbon Dioxide 28 mmol/L (22-32); Chloride 100 mmol/L (98-107); Estimated Glomerular Filt Rate > 60.0 mL/min (>60); Glucose 122 mg/dL (80-110); HEMOLYSIS 16 (0-50); Potassium 4.6 mmol/L (3.4-5.1); Sodium 139 mmol/L (137-145)
== END ==
PROVIDERS: Family Provider Internal Medicine; PCP Internal Medicine; Visit Provider Internal Medicine
DX: I50.22 Chronic systolic (congestive) heart failure (principal)
CPT/HCPCS: 36415; 80048

== ENCOUNTER → 2019-01-06 12:49 | Outpatient (CLI) | payer MEDICARE, SELFPAY ==
[2019-01-06 14:59] LABS: Blood Urea Nitrogen 30 mg/dL (7-17); Calcium 9.8 mg/dL (8.4-10.2); Carbon Dioxide 32 mmol/L (22-32); Chloride 95 mmol/L (98-107); Estimated Glomerular Filt Rate 53.3 mL/min (>60); Glucose 88 mg/dL (80-110); HEMOLYSIS < 15 (0-50); Potassium 4.5 mmol/L (3.4-5.1); Sodium 136 mmol/L (137-145)
== END ==
PROVIDERS: PCP Internal Medicine; Visit Provider Internal Medicine
DX: I50.22 Chronic systolic (congestive) heart failure (principal)
CPT/HCPCS: 36415; 80048

== ENCOUNTER → 2019-04-01 11:33 | Outpatient (CLI) | payer MEDICARE, SELFPAY ==
[2019-04-01 12:08] LABS: Blood Urea Nitrogen 38 mg/dL (7-17); Calcium 9.6 mg/dL (8.4-10.2); Carbon Dioxide 31 mmol/L (22-32); Chloride 101 mmol/L (98-107); Estimated Glomerular Filt Rate 53.3 mL/min (>60); Glucose 133 mg/dL (80-110); HEMOLYSIS 16 (0-50); Magnesium 2.3 mg/dL (1.6-2.3); Sodium 140 mmol/L (137-145)
== END ==
PROVIDERS: PCP Internal Medicine; Visit Provider Internal Medicine
DX: I10 Essential (primary) hypertension (principal); I50.22 Chronic systolic (congestive) heart failure
CPT/HCPCS: 36415; 80048; 83735

== ENCOUNTER → 2020-03-18 10:07 | Outpatient (CLI) | payer MEDICARE, SELFPAY ==
[2020-03-18 10:59] LABS: Add Manual Diff / Slide Review NO; Basophils Absolute Auto 0 /uL (0-100); Basophils Percent Auto 0.6 % (0-2); Eosinophils Absolute Auto 100 /uL (0-450); Eosinophils Percent Auto 2.2 % (2-4); Hematocrit 39.1 % (36-46); Hemoglobin 12.6 g/dL (12.0-16.0); Lymphocytes Absolute Auto 1200 /uL (1100-4500); Lymphocytes Percent Auto 19.1 % (25-40); Mean Corpuscular HGB Conc 32.4 % (30-36); Mean Corpuscular Hemoglobin 30.7 PG (26-34); Mean Corpuscular Volume 94.8 fL (80-100); Monocytes Absolute Auto 400 /uL (0-900); Monocytes Percent Auto 5.7 % (3-14); Neutrophils Absolute Auto 4600 /uL (1500-7000); Neutrophils Percent Auto 72.4 % (50-75); Platelet Count 304 X10^3/uL (150-400); Red Blood Cell Count 4.12 X10^6/uL (4.0-5.2); Red Cell Distribution Width 12.9 % (11.6-14.8); White Blood Cell Count 6.3 X10^3/uL (4.5-11.0)
[2020-03-18 11:12] LABS: Alanine Aminotransferase 13 IU/L (<35); Albumin 4.4 g/dL (3.5-5.0); Albumin Globulin Ratio 1.3 (1.0-2.8); Alkaline Phosphatase 61 U/L (38-126); Aspartate Aminotransferase 20 IU/L (14-36); BUN Creatinine Ratio 21.7 (6-22); Bilirubin Total 0.5 mg/dL (0.2-1.3); Blood Urea Nitrogen 23 mg/dL (7-17); Calcium 9.9 mg/dL (8.4-10.2); Carbon Dioxide 33 mmol/L (22-32); Chloride 98 mmol/L (98-107); Estimated Glomerular Filt Rate 49.8 mL/min (>60); Globulin 3.3 g/dL (1.7-4.1); Glucose 98 mg/dL (80-110); HEMOLYSIS < 15 (0-50); Potassium 4.8 mmol/L (3.4-5.1); Sodium 138 mmol/L (137-145); Total Protein 7.7 g/dL (6.3-8.2)
[2020-03-19 10:57] LABS: Thyroid Stimulating Hormone 2.25 uIU/mL (0.47-4.68)
== END ==
PROVIDERS: PCP Internal Medicine; Referring Provider Internal Medicine Cardiovascular Disease; Visit Provider Internal Medicine Cardiovascular Disease
DX: I50.9 Heart failure, unspecified (principal); I50.22 Chronic systolic (congestive) heart failure
CPT/HCPCS: 36415; 80053; 84443; 85025

== ENCOUNTER → 2020-11-25 11:37 | Outpatient (CLI) | payer MEDICARE, SELFPAY ==
[2020-11-25 12:51] LABS: Add Manual Diff / Slide Review NO; Basophils Absolute Auto 0 /uL (0-100); Basophils Percent Auto 0.5 % (0-2); Eosinophils Absolute Auto 200 /uL (0-450); Eosinophils Percent Auto 2.2 % (2-4); Hematocrit 37.2 % (36-46); Hemoglobin 12.1 g/dL (12.0-16.0); Lymphocytes Absolute Auto 1200 /uL (1100-4500); Lymphocytes Percent Auto 15.7 % (25-40); Mean Corpuscular HGB Conc 32.5 % (30-36); Mean Corpuscular Volume 92.4 fL (80-100); Monocytes Absolute Auto 600 /uL (0-900); Monocytes Percent Auto 8.1 % (3-14); Neutrophils Absolute Auto 5500 /uL (1500-7000); Neutrophils Percent Auto 73.5 % (50-75); Platelet Count 346 X10^3/uL (150-400); Red Blood Cell Count 4.03 X10^6/uL (4.0-5.2); Red Cell Distribution Width 13.9 % (11.6-14.8); White Blood Cell Count 7.5 X10^3/uL (4.5-11.0)
[2020-11-25 13:31] LABS: Alanine Aminotransferase 13 IU/L (<35); Albumin Globulin Ratio 1.2 (1.0-2.8); Alkaline Phosphatase 60 U/L (38-126); Aspartate Aminotransferase 21 IU/L (14-36); BUN Creatinine Ratio 21.7 (6-22); Bilirubin Total 0.2 mg/dL (0.2-1.3); Blood Urea Nitrogen 23 mg/dL (7-17); Calcium 9.8 mg/dL (8.4-10.2); Carbon Dioxide 31 mmol/L (22-32); Chloride 100 mmol/L (98-107); Estimated Glomerular Filt Rate 49.6 mL/min (>60); Globulin 3.3 g/dL (1.7-4.1); Glucose 112 mg/dL (80-110); HEMOLYSIS < 15 (0-50); Potassium 5.2 mmol/L (3.4-5.1); Sodium 139 mmol/L (137-145); Total Protein 7.3 g/dL (6.3-8.2)
== END ==
PROVIDERS: PCP Internal Medicine; Referring Provider Internal Medicine; Visit Provider Internal Medicine
DX: I10 Essential (primary) hypertension (principal); I50.22 Chronic systolic (congestive) heart failure; N18.2 Chronic kidney disease, stage 2 (mild); K25.7 Chronic gastric ulcer without hemorrhage or perforation; Z87.19 Personal history of other diseases of the digestive system
CPT/HCPCS: 36415; 80053; 85025

== ENCOUNTER → 2021-09-30 11:01 | Outpatient (CLI) | payer MEDICARE, SELFPAY ==
[2021-09-30 14:30] LABS: BUN Creatinine Ratio 21.9 (6-22); Blood Urea Nitrogen 21 mg/dL (7-17); Calcium 9.8 mg/dL (8.4-10.2); Carbon Dioxide 32 mmol/L (22-32); Chloride 100 mmol/L (98-107); Estimated Glomerular Filt Rate 55.5 mL/min (>60); Glucose 134 mg/dL (80-110); HEMOLYSIS < 15 (0-50); Potassium 4.8 mmol/L (3.4-5.1); Sodium 137 mmol/L (137-145)
== END ==
PROVIDERS: PCP Internal Medicine; Referring Provider Nurse Practitioner; Visit Provider Nurse Practitioner
DX: I50.22 Chronic systolic (congestive) heart failure (principal)
CPT/HCPCS: 36415; 80048

== ENCOUNTER 2022-01-03 17:52 | Emergency (ER) | payer MEDICARE, SELFPAY ==
[2022-01-03] VITALS (9 sets, daily range): BP systolic 127–160; BP diastolic 69–82; PULSE 82–91; RESP 14; TEMP 37.1; O2SAT 91–96; BMI 28.8
--- NOTE | 2022-01-03 19:07 | DI.RAD.S_ITS ---
PROCEDURE: XR LUMBAR SPINE 2-3V INDICATIONS: new worse pain L5/S1/referred to lt hip, hx osteoporosis TECHNIQUE: 3 views of the lumbar spine were acquired. COMPARISON: [facility] [place], [place], XR LUMBAR SPINE 2 OR 3 VIEWS, 05/19/2018, 15:19. FINDINGS: Bones: 5 [id number]-[id number] vertebrae are present. There is severe levoconvex curvature of the lumbar spine with apex at the L2-3 level. Severe generalized osteopenia is seen. No definite acute compression fracture identified. No suspicious bony lesions. Degenerative changes are seen at the sacroiliac joints bilaterally. Soft tissues: Overlying bowel gas pattern is normal. No suspicious soft tissue calcifications. Aortic atherosclerotic calcifications. Surgical clips are seen projecting over the abdomen. IMPRESSION: 1. No acute vertebral compression fracture identified, although evaluation is compromised by severe osteopenia. MRI or CT could be performed for further evaluation if symptoms persist. 2. 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 Dictated by: Niranjan Monae M.D. on 01/03/2022 at 19:55 Approved by: Niranjan Monae M.D. on 01/03/2022 at 19:58
--- NOTE | 2022-01-03 19:22 | ED.BACK ---
HPI - Back Pain/Injury <Marina Lora, [facility] - Last Filed: 01/03/22 20:33> General Chief Complaint: Back Pain/Injury Stated Complaint: Back pain x 3 days Time Seen by Provider: 01/03/22 18:58 Source: patient History of Present Illness HPI Narrative: This is an 81-year-old female who presents to the emergency department with three days of progressive left-sided low back pain and a patient states that it was difficult for her to get out his. She endorses a history of back problems and back pain but states this time she has muscle spasms and does not usually have at going on. She states that her pain starts midline in her very low back, she has a history of osteoporosis, scoliosis, and degenerative disc disease. She states that the pain is referred to her left hip but denies any symptoms of sciatica down her leg. She states that she takes hydrocodone at baseline for her chronic arthralgia. She states it has good pain control typically but today she states that her pain is exacerbated beyond what it normally is. She denies any recent trauma or injuries, denies any urinary frequency, abdominal pain, fatigue, fever, chills, dysuria, or flank pain. Related Data Home Medications Medication Instructions Recorded Confirmed vitamin E 400 unit capsule 400 unit PO DAILY ##0 07/08/11 12/30/21 ferrous sulfate 325 mg (65 mg 325 mg PO DAILY 10/13/18 12/30/21 iron) tablet (Iron (ferrous sulfate)) spironolactone 25 mg tablet 25 mg PO DAILY 10/13/18 12/30/21 sacubitril 24 mg-valsartan 26 mg 1 tab PO BID 11/10/18 12/30/21 tablet (Entresto) cholecalciferol (vitamin D3) 25 25 mcg PO DAILY 05/27/20 12/30/21 mcg (1,000 unit) capsule omega-3 fatty acids 1,000 mg 1,000 mg PO DAILY 05/27/20 12/30/21 capsule glucos sul [id number] 1 cap PO DAILY 12/30/21 12/30/21 [Glucosamine Chondroitin] Previous Rx's Medication Instructions Recorded Disabled Parking Permit #1 ea 10/21/18 alendronate 70 mg tablet (Fosamax) 70 mg PO QWEEK #12 tabs 04/02/20 metoprolol succinate 50 mg 50 mg PO BID #180 tabs 02/24/21 tablet,extended release 24 hr gabapentin 600 mg tablet 600 mg PO BID #180 tabs 11/06/21 (Neurontin) omeprazole 40 mg capsule,delayed 40 mg PO QDAY #90 caps 11/10/21 release nortriptyline 25 mg capsule 50 mg PO HS #180 caps 12/29/21 hydrocodone 5 mg-acetaminophen 325 See Rx Instructions .Route 12/30/21 mg tablet .COMPLEX #90 tabs diclofenac sodium 3 % topical gel 1 applic topical TID PRN low back 01/03/22 pain #100 grams hydrocodone 5 mg-acetaminophen 325 1 tab PO BID PRN pain #14 tabs 01/03/22 mg tablet lidocaine 4 % topical patch 1 patch topical BID PRN pain #15 ea 01/03/22 methocarbamol 500 mg tablet 500 mg PO Q8H PRN muscle spasm #14 01/03/22 tabs Allergies Allergy/AdvReac Type Severity Reaction Status Date / Time No Known Drug Allergies Allergy Verified 01/03/22 17:58 Patient History <MARIA T Will - Last Filed: 01/03/22 20:33> Medical History (Updated 01/03/22 @ 19:59 by MARIA T Will) Chronic back pain Chronic Sergey lesion (02/16/17) Chronic renal failure, stage 3a Chronic systolic (congestive) heart failure Closed L1 vertebral fracture 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) Essential hypertension Glaucoma (~11/2016) Hiatal hernia (07/03/11) History of duodenal ulcer History of gastrointestinal hemorrhage Idiopathic scoliosis (07/03/11) Osteoporosis 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) Uncomplicated opioid dependence Social History marital status: number of children: 2 household members: none lives independently: Yes caregiver/support person: Yes housing: house pets and animals: Yes education level: college (3 years) occupational status: other (Retired) 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 kerry/caodaism: Zoroastrian travel history: other ([place]) leisure activities: reading and other (Meetings, Trips with granddaughter, knit, cooks.) Smoking Status: Former smoker Tobacco: How many years used: 8 Smokeless tobacco user: other (Cigarettes) quit status: quit date established (1956) second hand exposure: No alcohol intake: current substance use type: does not use Smoking Status: Former smoker alcohol intake frequency: holidays/special occasions only Substance Use Type: does not use Exam <MARIA T Will - Last Filed: 01/03/22 20:33> Initial Vital Signs Initial Vital Signs: Vital Signs Temperature 98.8 F 01/03/22 17:58 Pulse Rate 89 01/03/22 17:58 Respiratory Rate 14 01/03/22 17:58 Blood Pressure 160/82 H 01/03/22 17:58 Pulse Oximetry 94 01/03/22 17:58 Oxygen Delivery Method 01/03/22 17:58 <Marlen Ryder MD - Last Filed: 01/03/22 23:56> Initial Vital Signs Initial Vital Signs: Vital Signs Temperature 98.8 F 01/03/22 17:58 Pulse Rate 89 01/03/22 17:58 Respiratory Rate 14 01/03/22 17:58 Blood Pressure 160/82 H 01/03/22 17:58 Pulse Oximetry 94 01/03/22 17:58 Oxygen Delivery Method 01/03/22 17:58 Course <MARIA T Will - Last Filed: 01/03/22 20:33> Orders Ordered: ED Orders 01/03/22 19:07 XR lumbar spine 2-3V Stat 01/03/22 20:51 Urinalysis and Microscopic Stat Urine Culture Stat Discontinued Medications Acetaminophen (Acetaminophen 325 Mg Tablet) 650 mg PO NOW ONE Stop: 01/03/22 19:07 Last Admin: 01/03/22 19:40 Dose: 650 mg Documented By: CAYETANO Hydrocodone Bitart/Acetaminophen (Hydrocodone/Acet 5/325 Prepack) 1 bottle MISC SEEINSTR ONE Stop: 01/03/22 20:24 Last Admin: 01/03/22 20:49 Dose: 1 bottle Documented By: JODI Cyclobenzaprine HCl (Cyclobenzaprine 10 Mg Prepack) 1 bottle MISC SEEINSTR ONE Stop: 01/03/22 20:00 Last Admin: 01/03/22 20:49 Dose: 1 bottle Documented By: JODI Ketorolac Tromethamine (Ketorolac 10 Mg Tablet) 10 mg PO NOW ONE Stop: 01/03/22 19:07 Last Admin: 01/03/22 19:40 Dose: 10 mg Documented By: CAYETANO Lidocaine (Lidocaine Patch 1 Each Adh..Patch) 1 each TOP NOW ONE Stop: 01/03/22 19:07 Last Admin: 01/03/22 19:40 Dose: 1 each Documented By: CAYETANO Methocarbamol (Methocarbamol 500 Mg Tablet) 500 mg PO NOW ONE Stop: 01/03/22 19:07 Last Admin: 01/03/22 19:40 Dose: 500 mg Documented By: CAYETANO Vital Signs Vital signs: Vital Signs - 8 hr 01/03/22 17:58 01/03/22 17:58 01/03/22 17:58 Temperature 98.8 F Pulse Rate 89 91 H Respiratory Rate 14 Blood Pressure 160/82 H 160/82 H Pulse Oximetry 94 93 Oxygen Delivery Method Room Air 01/03/22 18:00 01/03/22 18:00 01/03/22 18:30 Temperature Pulse Rate 91 H 83 Respiratory Rate Blood Pressure 152/77 H Pulse Oximetry 94 91 Oxygen Delivery Method 01/03/22 18:31 01/03/22 18:31 01/03/22 19:00 Temperature Pulse Rate 83 Respiratory Rate Blood Pressure 127/69 156/77 H Pulse Oximetry 91 Oxygen Delivery Method 01/03/22 19:00 01/03/22 19:39 01/03/22 20:00 Temperature Pulse Rate 84 86 82 Respiratory Rate Blood Pressure Pulse Oximetry 92 96 96 Oxygen Delivery Method 01/03/22 22:11 01/03/22 22:12 01/03/22 22:12 Temperature Pulse Rate 88 88 Respiratory Rate Blood Pressure 150/75 H Pulse Oximetry 96 96 Oxygen Delivery Method <Marlen Ryder MD - Last Filed: 01/03/22 23:56> Orders Ordered: ED Orders 01/03/22 19:07 XR lumbar spine 2-3V Stat 01/03/22 20:51 Urinalysis and Microscopic Stat Urine Culture Stat Discontinued Medications Acetaminophen (Acetaminophen 325 Mg Tablet) 650 mg PO NOW ONE Stop: 01/03/22 19:07 Last Admin: 01/03/22 19:40 Dose: 650 mg Documented By: CAYETANO Hydrocodone Bitart/Acetaminophen (Hydrocodone/Acet 5/325 Prepack) 1 bottle MISC SEEINSTR ONE Stop: 01/03/22 20:24 Last Admin: 01/03/22 20:49 Dose: 1 bottle Documented By: JODI Cyclobenzaprine HCl (Cyclobenzaprine 10 Mg Prepack) 1 bottle MISC SEEINSTR ONE Stop: 01/03/22 20:00 Last Admin: 01/03/22 20:49 Dose: 1 bottle Documented By: JODI Ketorolac Tromethamine (Ketorolac 10 Mg Tablet) 10 mg PO NOW ONE Stop: 01/03/22 19:07 Last Admin: 01/03/22 19:40 Dose: 10 mg Documented By: CAYETANO Lidocaine (Lidocaine Patch 1 Each Adh..Patch) 1 each TOP NOW ONE Stop: 01/03/22 19:07 Last Admin: 01/03/22 19:40 Dose: 1 each Documented By: CAYETANO Methocarbamol (Methocarbamol 500 Mg Tablet) 500 mg PO NOW ONE Stop: 01/03/22 19:07 Last Admin: 01/03/22 19:40 Dose: 500 mg Documented By: CAYETANO Vital Signs Vital signs: Vital Signs - 8 hr 01/03/22 17:58 01/03/22 17:58 01/03/22 17:58 Temperature 98.8 F Pulse Rate 89 91 H Respiratory Rate 14 Blood Pressure 160/82 H 160/82 H Pulse Oximetry 94 93 Oxygen Delivery Method Room Air 01/03/22 18:00 01/03/22 18:00 01/03/22 18:30 Temperature Pulse Rate 91 H 83 Respiratory Rate Blood Pressure 152/77 H Pulse Oximetry 94 91 Oxygen Delivery Method 01/03/22 18:31 01/03/22 18:31 01/03/22 19:00 Temperature Pulse Rate 83 Respiratory Rate Blood Pressure 127/69 156/77 H Pulse Oximetry 91 Oxygen Delivery Method 01/03/22 19:00 01/03/22 19:39 01/03/22 20:00 Temperature Pulse Rate 84 86 82 Respiratory Rate Blood Pressure Pulse Oximetry 92 96 96 Oxygen Delivery Method 01/03/22 22:11 01/03/22 22:12 01/03/22 22:12 Temperature Pulse Rate 88 88 Respiratory Rate Blood Pressure 150/75 H Pulse Oximetry 96 96 Oxygen Delivery Method MDM - Back Pain/Injury <MARIA T Will - Last Filed: 01/03/22 20:33> Lab Data Labs: Lab Results 01/03/22 Range/Units 20:51 Urine Color Yellow Urine Appearance Clear Urine pH 7.0 (4.5-8.0) Ur Specific [place] 1.020 (1.000-1.035) Urine Protein Trace H (Negative) Urine Glucose (UA) Negative (Negative) g/dL Urine Ketones Negative (NEGATIVE) Urine Occult Blood Trace-intact (Negative) Urine Nitrate Negative (Negative) Urine Bilirubin Negative (NEGATIVE) Urine Urobilinogen 1.0 (0.2) E.U./dL Ur Leukocyte Esterase 2+ H (NEGATIVE) Urine RBC 0-1/hpf (0-5/HPF) Urine WBC 30-100/hpf H (0-5/HPF) Ur Squamous Epith Cells 1-5 /hpf (0-5/HPF) Urine Bacteria Moderate (10-30) H (None) Urine Mucus 1+ H (Negative) Ur Culture Indicated? Specimen cultured Imaging Data lumbar xr: Radiologist's Impression: PROCEDURE:? XR LUMBAR SPINE 2-3V ? INDICATIONS:? new worse pain L5/S1/referred to lt hip, hx osteoporosis ? TECHNIQUE:? 3 views of the lumbar spine were acquired.? ? COMPARISON:? [facility], CR, XR LUMBAR SPINE 2 OR 3 VIEWS, 05/19/2018, 15:19. ? FINDINGS:? ? Bones:? 5 [id number] vertebrae are present.? There is severe levoconvex curvature of the lumbar spine with apex at the L2-3 level.? Severe generalized osteopenia is seen.? No definite acute compression fracture identified.? No suspicious bony lesions.? Degenerative changes are seen at the sacroiliac joints bilaterally. ? Soft tissues:? Overlying bowel gas pattern is normal.? No suspicious soft tissue calcifications.? Aortic atherosclerotic calcifications.? Surgical clips are seen projecting over the abdomen. ? ? IMPRESSION: 1. No acute vertebral compression fracture identified, although evaluation is compromised by severe osteopenia.? MRI or CT could be performed for further evaluation if symptoms persist. 2. 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 ? ? ? Dictated by: Niranjan Monae M.D. on 01/03/2022 at 19:55 ? ? Approved by: Niranjan Monae M.D. on 01/03/2022 at 19:58 ? [facility] Narrative Medical decision making narrative: This is a pleasant 81-year-old female with history of scoliosis, osteopenia, chronic low back pain who presents to the emergency department today for gradual progression of low back pain over the last three days with muscle spasms today, and difficulty standing from a seated position. Patient had tenderness over her left-sided paraspinal musculature to her lumbar spine, she has severe curvature of her lumbar spine, x-ray of her lumbar spine shows no acute vertebral compression fracture identified although evaluation is compromised by severe osteopenia, severe levoconvex curvature of her lumbar spine and multilevel degenerative changes. Patient denies any recent trauma, no recent images were available for any comparison, x-ray obtained for concern about a compression fracture. Patient does not have any urinary symptoms, has not been ill, states that she has obtained a referral to physical therapy already and will follow-up with Dr. Castaneda on Wednesday morning for this. She was treated for her acute exacerbation of chronic low back pain in the emergency department with Toradol p.o., lidocaine patch, methocarbamol, acetaminophen, and she was given prepack of Flexeril and hydrocodone since the pharmacies are closed tonight. Patient's pain was moderately improved and she was able to ambulate with a walker without assistance or without any fall/instability. Recommend patient follow-up with Dr. Castaneda for the physical therapy referral to help prevent further exacerbations and strengthen her core. Discussed with patient about treatment options if this is not successful, patient has seen Dr. Medina in the past and states that at that time the treatments that they use did not improve her symptoms. She states that a lot has changed in she would be open to following up with Dr. eMdina if her physical therapy is not beneficial or if she still has pain which is not treated well with her hydrocodone. Discussed not combining hydrocodone with muscle relaxers, patient states understanding to this. She is given prescription of methocarbamol, lidocaine patches, diclofenac gel, and hydrocodone. Multiple etiologies of back pain considered including; Epidural abscess, cauda equina, mass occupying lesion, lumbar fracture, intra-abdominal pathology chronic neuropathic pain and other considered. Patient is appropriate and amenable to discharge home. Vital signs are stable on repeat examination is unremarkable. Patient has been informed of results. Patient has been given strict return to ER precautions for any new or worsening symptoms. Patient understands to follow up closely with outpatient providers as instructed. Patient understands plan and agrees to discharge home. All questions and concerns answered at this time. <Marlen Ryder MD - Last Filed: 01/03/22 23:56> Lab Data Labs: Lab Results 01/03/22 Range/Units 20:51 Urine Color Yellow Urine Appearance Clear Urine pH 7.0 (4.5-8.0) Ur Specific [place] 1.020 (1.000-1.035) Urine Protein Trace H (Negative) Urine Glucose (UA) Negative (Negative) g/dL Urine Ketones Negative (NEGATIVE) Urine Occult Blood Trace-intact (Negative) Urine Nitrate Negative (Negative) Urine Bilirubin Negative (NEGATIVE) Urine Urobilinogen 1.0 (0.2) E.U./dL Ur Leukocyte Esterase 2+ H (NEGATIVE) Urine RBC 0-1/hpf (0-5/HPF) Urine WBC 30-100/hpf H (0-5/HPF) Ur Squamous Epith Cells 1-5 /hpf (0-5/HPF) Urine Bacteria Moderate (10-30) H (None) Urine Mucus 1+ H (Negative) Ur Culture Indicated? Specimen cultured Discharge Plan Departure Patient Disposition: Home Clinical Impression: Acute exacerbation of chronic low back pain Idiopathic scoliosis Qualifiers: Idiopathic scoliosis type: other Spinal region: lumbar Qualified Code(s): M41.26 - Other idiopathic scoliosis, lumbar region Instructions: Low Back Pain, DI for Back Pain With Sciatica, DI for Back Spasm Activity Restrictions/Additional Instructions: *You have been diagnosed with an acute exacerbation of your low back pain. You were not kidding about your scoliosis, sorry for how curved your spine is and how this makes your days more difficult. I have sent some topical modalities including lidocaine patches and diclofenac gel to your pharmacy, it is a higher strength version so hopefully it is helpful. I have also sent muscle relaxers and some more hydrocodone in case you are running low. Please do not combine the muscle relaxer with a hydrocodone as you may become exceptionally tired and risk falling. The muscle relaxer mom may be the most helpful to help you go to sleep at night, you can take these medications as they work for you best, please continue to stay active and go for walks, this can be helpful for your pain but try to keep them short so that it does not get more irritated. Please follow-up with your primary care provider if this is not improving or return to the emergency department for another evaluation. If you develop a fever, any fatigue, weakness, abdominal pain, please come back for another evaluation. I hope that you feel better soon, physical therapy might be helpful for preventing flares in the future, when you see Dr. Castaneda next, ask for a referral. Please follow-up with physical therapy like you have already tried, I am very proud to hear this from you, if this is unsuccessful or your seeking another pain treatment modality, please contact Dr. Medina as noted below or ask for referral from [facility] to him. Please return for any new or worsening conditions, it was a pleasure to meet you today. *What to do: *Please continue to take your regular medications as directed. [ x] New medication prescriptions sent to your pharmacy: [[facility] ] [ ] New medication written as a paper prescription [ ] No new medications given *Please follow up with your primary care provider in 2-3 days, call for an appointment. Let them know you were seen in the Emergency Department and that we asked that you be seen for follow-up. We will electronically transmit a record of today's note if your PCP is in our system *If you do not have a primary care provider please contact [phone] to establish care with one of the [facility] primary care providers. *Return to Emergency Department if you should have any new, worsening or concerning symptoms, such as [fever greater than 101F, chills, worsening pain, persistent vomiting or other bothersome symptoms] Prescriptions: New lidocaine 4 % adhesive patch,medicated 1 patch topical BID PRN (Reason: pain) Qty: 15 0RF Rx Instructions: may leave on for up to 12 hrs methocarbamol 500 mg tablet 500 mg PO Q8H PRN (Reason: muscle spasm) Qty: 14 0RF hydrocodone-acetaminophen 5-325 mg tablet 1 tab PO BID PRN (Reason: pain) Qty: 14 0RF diclofenac sodium 3 % gel 1 applic topical TID PRN (Reason: low back pain) Qty: 100 0RF No Action vitamin E 400 unit Capsule 400 unit PO DAILY Qty: 0 (DME) Disabled Parking Permit Qty: 1 0RF Rx Instructions: Patient qualifies for disabled parking as per the attached form. alendronate [Fosamax] 70 mg tablet 70 mg PO QWEEK Qty: 12 4RF metoprolol succinate 50 mg tablet extended release 24 hr 50 mg PO BID Qty: 180 3RF gabapentin [Neurontin] 600 mg tablet 600 mg PO BID Qty: 180 3RF omeprazole 40 mg capsule,delayed release(DR/EC) 40 mg PO QDAY Qty: 90 3RF nortriptyline 25 mg capsule 50 mg PO HS Qty: 180 0RF omega-3 fatty acids 1,000 mg capsule 1,000 mg PO DAILY cholecalciferol (vitamin D3) 25 mcg (1,000 unit) capsule 25 mcg PO DAILY ferrous sulfate [Iron (ferrous sulfate)] 325 mg (65 mg iron) tablet 325 mg PO DAILY spironolactone 25 mg tablet 25 mg PO DAILY Entresto 24-26 mg tablet 1 tab PO BID glucos sul [id number] [Glucosamine Chondroitin] 1 cap PO DAILY hydrocodone-acetaminophen 5-325 mg tablet See Rx Instructions .ROUTE .COMPLEX Qty: 90 0RF Dose Instruction: take 1 to 2 tablets by mouth every 4 hours if needed for back pain Rx Instructions: take 1 to 2 tablets by mouth every 4 hours if needed for back pain Referrals: Demarco Medina DO [Physician] - Charles Castaneda MD [Primary Care Provider] - Visit Report Forms: Patient Portal/API <Marlen Ryder MD - Last Filed: 01/03/22 23:56> [facility]: I was immediately available in the department for consultation throughout this patient's visit. I agree with documentation as above. Marlen Ryder MD
[2022-01-03] MEDS: ACETAMINOPHEN 325 MG TABLET 650 MG PO (19:40)
[2022-01-03] MEDS: LIDOCAINE PATCH 1 EACH ADH..PATCH TOP (19:40)
[2022-01-03] MEDS: KETOROLAC 10 MG TABLET PO (19:40)
[2022-01-03] MEDS: methocarbamoL 500 MG TABLET PO (19:40)
[2022-01-03] MEDS: HYDROCODONE/ACET 5/325 PREPACK 1 BOTTLE MISC (20:49)
[2022-01-03] MEDS: CYCLOBENZAPRINE 10 MG PREPACK 1 BOTTLE MISC (20:49)
[2022-01-03 21:17] LABS: Bilirubin Urine UA NEGATIVE (NEGATIVE); Color Urine UA YELLOW; Glucose Urine UA NEGATIVE (Negative); Ketones Urine UA NEGATIVE (NEGATIVE); Leukocyte Esterase Urine UA 2+ (NEGATIVE); Nitrite Urine UA NEGATIVE (Negative); Occult Blood Urine UA TRACE-INTACT (Negative); Protein Urine UA TRACE (Negative)
[2022-01-03 21:24] LABS: Appearance Urine UA Clear; RBC Urine 0-1/HPF (0-5/HPF)
[2022-01-03 21:25] LABS: Bacteria Urine Moderate (10-30); Culture Indicated Urine Specimen Cultured; Mucus Urine 1+ (Negative); Squamous Epithelial Cell Urine 1-5 /HPF (0-5/HPF); WBC Urine 30-100/HPF (0-5/HPF)
== END 2022-01-03 22:22 | disposition home or self-care (01) ==
PROVIDERS: Emergency Medicine; Emergency Provider Nurse Practitioner Critical Care Medicine; PCP Internal Medicine
DX: M54.50 Low back pain, unspecified (principal); M41.26 Other idiopathic scoliosis, lumbar region
CPT/HCPCS: 72100; 81001; 87077; 87086; 87186; 99283

== ENCOUNTER 2022-03-30 14:16 | Emergency (ER) | payer MEDICARE, SELFPAY ==
[2022-03-30 14:21] VITALS: BP 188/99; PULSE 89; RESP 22; TEMP 36.9; O2SAT 95
--- NOTE | 2022-03-30 15:50 | DI.CT.S_ITS ---
PROCEDURE: CT THORACIC SPINE WO CON INDICATIONS: back pain TECHNIQUE: Noncontrast 3 mm thick sections acquired through the region of interest in the thoracic spine. Sagittal and coronal reformats were then constructed. For radiation dose reduction, the following was used: automated exposure control. COMPARISON: [facility], CR, XR CHEST 2V, 08/30/2018, 17:15. FINDINGS: Image quality: Excellent. Bones: There is moderate to severe scoliotic curvature of the thoracolumbar spine. Severe generalized osteopenia. Multiple osseous compression fractures are seen of uncertain age, involving T7 through L1. No suspicious sclerotic or lytic bony lesions. Central spinal canal is of normal overall caliber. Soft tissues: There is a large hiatal hernia containing the majority of the stomach with atelectasis of the adjacent left lung base. No paravertebral masses or hematomas. Visualized posteromedial lungs appear clear. IMPRESSION: 1. Multiple thoracic compression fractures of indeterminate age extending from T7 through L1. Recommend correlation for point tenderness. 2. Generalized osteopenia. 3. Severe scoliotic curvature of the thoracolumbar spine. 4. Large hiatal hernia. Dictated by: Niranjan Monae M.D. on 03/30/2022 at 15:27 Approved by: Niranjan Monae M.D. on 03/30/2022 at 15:35
--- NOTE | 2022-03-30 15:52 | ED_ITS ---
HPI - Back Pain/Injury <Sathya Hampton PA-C - Last Filed: 03/30/22 20:22> General Chief Complaint: Back Pain/Injury Stated Complaint: back pain x1 day Time Seen by Provider: 03/30/22 14:26 Source: patient History of Present Illness HPI Narrative: 81-year-old female with past medical history chronic renal failure, CHF, osteoporosis, essential hypertension, chronic back pain, idiopathic scoliosis, stress induced cardiomyopathy, hiatal hernia presents to the ED with 6 days of mid back pain. Patient states that she strained her back when she went to the emergency medical technician/driver 6 days ago, head to stand and lean forward to get her eyes tested, felt her backed week at that point. Patient denies any other trauma. Patient denies any recent falls. Patient states that her pain worsened over the last 2-3 days, states she is unable to move or get around for her ADL. Prior to last week, patient endorses being able to get around and take care of herself. Patient lives currently in independent living at [facility], which does not include getting care to move around to the bathroom and back etc.. Patient has some chronic back problems including a back fracture in 2018, scoliosis, osteoporosis for which she takes hydrocodone daily. Patient was seen in the emergency room in December of this year for lower back pain with no trauma, no acute findings. Patient states she took her hydrocodone and methocarbamol with no relief. Patient denies urinary hesitancy, urinary incontinence, bowel incontinence, fever, chills, numbness, tingling, weakness, saddle paresthesias. Patient is concerned today about not being able to get around for ADLs. Related Data Home Medications Medication Instructions Recorded Confirmed vitamin E 268 mg (400 unit) capsule 400 unit PO DAILY ##0 07/08/11 03/31/22 ferrous sulfate 325 mg (65 mg 325 mg PO DAILY 10/13/18 03/31/22 iron) tablet (Iron (ferrous sulfate)) spironolactone 25 mg tablet 25 mg PO DAILY 10/13/18 03/31/22 sacubitril 24 mg-valsartan 26 mg 1 tab PO BID 11/10/18 03/31/22 tablet (Entresto) cholecalciferol (vitamin D3) 25 25 mcg PO DAILY 11/02/20 09/06/22 mcg (1,000 unit) capsule omega-3 fatty acids 1,000 mg 1,000 mg PO DAILY 05/27/20 03/31/22 capsule glucos sul [id number] 1 cap PO DAILY 12/30/21 03/31/22 [Glucosamine Chondroitin] cyclobenzaprine 10 mg tablet 10 mg PO TID PRN Back Pain 03/31/22 03/31/22 Previous Rx's Medication Instructions Recorded Disabled Parking Permit #1 ea 10/21/18 alendronate 70 mg tablet (Fosamax) 70 mg PO QWEEK #12 tabs 04/02/20 gabapentin 600 mg tablet 600 mg PO BID #180 tabs 11/06/21 (Neurontin) omeprazole 40 mg capsule,delayed 40 mg PO QDAY #90 caps 11/10/21 release nortriptyline 25 mg capsule 50 mg PO HS #180 caps 12/29/21 diclofenac sodium 3 % topical gel 1 applic topical TID PRN low back 01/03/22 pain #100 grams hydrocodone 5 mg-acetaminophen 325 1 tab PO BID PRN pain #14 tabs 01/03/22 mg tablet lidocaine 4 % topical patch 1 patch topical BID PRN pain #15 ea 01/03/22 metoprolol succinate 50 mg 50 mg PO BID #180 tabs 02/16/22 tablet,extended release 24 hr hydrocodone 5 mg-acetaminophen 325 See Rx Instructions .Route 03/06/22 mg tablet .COMPLEX #90 tabs morphine 15 mg immediate release 15 mg PO Q4H #14 tabs 03/31/22 tablet morphine 15 mg immediate release 15 mg PO Q6H PRN Back Pain #14 tabs 03/31/22 tablet hydrocodone bitartrate 10 mg 10 mg PO Q12H PRN pain #14 ea 04/01/22 capsule, oral only, extended rel 12 hr sulfamethoxazole 800 1 tab PO BID #10 tabs 04/01/22 mg-trimethoprim 160 mg tablet (Bactrim DS) Allergies Allergy/AdvReac Type Severity Reaction Status Date / Time No Known Drug Allergies Allergy Verified 01/03/22 17:58 Review of Systems <Sathya Hampton PA-C - Last Filed: 03/30/22 20:22> Review of Systems ROS Unobtainable: All systems reviewed & are unremarkable except as noted in HPI and below Constitutional Constitutional: Denies chills, Denies fatigue, Denies fever(s), Denies frequent falls, Denies lethargy and Denies weakness Eyes Eyes: Denies change in vision, Denies eye discharge, Denies irritation and Denies loss of vision ENT Ears, Nose, Mouth, and Throat: Denies change in voice, Denies dizziness, Denies neck pain, Denies sore throat and Denies throat swelling Cardiovascular Cardiovascular: Denies chest pain, Denies irregular heart rhythm, Denies lightheadedness, Denies palpitations, Denies dyspnea, Denies dyspnea on exertion and Denies orthopnea Respiratory Respiratory: Denies cough, Denies dyspnea, Denies dyspnea on exertion and Denies wheezing Gastrointestinal Gastrointestinal: Denies abdominal pain, Denies change in bowel habits, Denies diarrhea, Denies nausea and Denies vomiting Genitourinary Genitourinary: Denies hematuria, Denies flank pain, Denies urinary incontinence and Denies urinary urgency Musculoskeletal Musculoskeletal: Reports back pain, Denies muscle weakness, Denies neck pain, Denies numbness and Denies tingling Integumentary/Breasts Skin/Breast: Denies pruritus, Denies erythema, Denies rash and Denies wounds Neurologic Neurologic: Denies behavioral changes, Denies confusion, Denies dizziness, Denies frequent falls, Denies loss of vision, Denies numbness, Denies tingling and Denies weakness Psychiatric Psychiatric: Denies anxiety, Denies behavioral changes, Denies confusion, Denies depression, Denies homicidal ideation and Denies suicidal ideation Endocrine Endocrine: Denies fatigue, Denies flushing and Denies palpitations Hematologic/Lymphatic Hematologic/Lymphatic: Denies easy bruising Allergic/Immunologic Allergic/Immunologic: Denies urticaria, Denies throat swelling and Denies wheezing Patient History <Sathya Hampton PA-C - Last Filed: 03/30/22 20:22> Medical History Chronic back pain Chronic Sergey lesion (02/16/17) Chronic renal failure, stage 3a Chronic systolic (congestive) heart failure Closed L1 vertebral fracture 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) Essential hypertension Glaucoma (~11/2016) Hiatal hernia (07/03/11) History of duodenal ulcer History of gastrointestinal hemorrhage Idiopathic scoliosis (07/03/11) Osteoporosis 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) Uncomplicated opioid dependence Social History marital status: number of children: 2 household members: none lives independently: Yes caregiver/support person: Yes housing: house pets and animals: Yes education level: college (3 years) occupational status: other (Retired) 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: [employer] travel history: other ([place]) leisure activities: reading and other (Meetings, Trips with granddaughter, knit, cooks.) Smoking Status: Former smoker Tobacco: How many years used: 8 Smokeless tobacco user: other (Cigarettes) quit status: quit date established (1956) second hand exposure: No alcohol intake: current substance use type: does not use Smoking Status: Former smoker alcohol intake frequency: holidays/special occasions only Substance Use Type: does not use Exam <Sathya Hampton PA-C - Last Filed: 03/30/22 20:22> Narrative Exam Narrative: Const General:?cooperative, healthy appearing and comfortable [facility] Head:?normal to inspection Ears:?hearing grossly normal bilaterally Nose:?external nose normal Face and sinus:?normal facial exam and sinuses nontender Mouth:?oral mucosae normal Throat:?posterior oropharynx normal Eyes General:?appearance normal, both eyes and all related structures Neck Neck:?normal visual inspection and no lymphadenopathy noted Resp Effort & Inspection:?normal respiratory effort Auscultation:?clear to auscultation bilaterally Cardio Rate:?regular rate Rhythm:?regular rhythm Musculoskeletal Midline tenderness to palpation in the thoracic back. No paraspinal tenderness to palpation. No bruising noted on exam. Neuro General:?patient alert, patient awake and patient oriented x3 Initial Vital Signs Initial Vital Signs: Vital Signs Temperature 98.5 F 03/30/22 14:21 Pulse Rate 89 03/30/22 14:21 Respiratory Rate 22 03/30/22 14:21 Blood Pressure 188/99 H 03/30/22 14:21 Pulse Oximetry 95 03/30/22 14:21 Oxygen Delivery Method 03/30/22 14:21 <Ronny Brown MD - Last Filed: 05/12/22 08:49> Initial Vital Signs Initial Vital Signs: Vital Signs Temperature 98.5 F 03/30/22 14:21 Pulse Rate 89 03/30/22 14:21 Respiratory Rate 22 03/30/22 14:21 Blood Pressure 188/99 H 03/30/22 14:21 Pulse Oximetry 95 03/30/22 14:21 Oxygen Delivery Method 03/30/22 14:21 <Marlen Ryder MD - Last Filed: 04/10/22 18:03> Initial Vital Signs Initial Vital Signs: Vital Signs Temperature 98.5 F 03/30/22 14:21 Pulse Rate 89 03/30/22 14:21 Respiratory Rate 22 03/30/22 14:21 Blood Pressure 188/99 H 03/30/22 14:21 Pulse Oximetry 95 03/30/22 14:21 Oxygen Delivery Method 03/30/22 14:21 <Carmenza Ken DO - Last Filed: 04/04/22 08:11> Initial Vital Signs Initial Vital Signs: Vital Signs Temperature 98.5 F 03/30/22 14:21 Pulse Rate 89 03/30/22 14:21 Respiratory Rate 22 03/30/22 14:21 Blood Pressure 188/99 H 03/30/22 14:21 Pulse Oximetry 95 03/30/22 14:21 Oxygen Delivery Method 03/30/22 14:21 Course <Sathya Hampton PA-C - Last Filed: 03/30/22 20:22> Orders Ordered: Discontinued Medications Hydrocodone Bitart/Acetaminophen (Hydrocodone/Acet 5/325 Tablet) 1 tab PO NOW ONE Stop: 03/30/22 15:58 Last Admin: 03/30/22 16:06 Dose: 1 tab Documented By: MLM Hydrocodone Bitart/Acetaminophen (Hydrocodone/Acet 5/325 Tablet) 1 tab PO NOW ONE Stop: 03/30/22 20:10 Last Admin: 03/30/22 20:59 Dose: 1 tab Documented By: EB Hydrocodone Bitart/Acetaminophen (Hydrocodone/Acet 5/325 Tablet) 1 tab PO NOW ONE Stop: 03/31/22 06:04 Last Admin: 03/31/22 06:39 Dose: 1 tab Documented By: KMW Hydrocodone Bitart/Acetaminophen (Hydrocodone/Acet 5/325 Tablet) 1 tab PO NOW ONE Stop: 03/31/22 12:06 Last Admin: 03/31/22 12:11 Dose: 1 tab Documented By: AT Hydrocodone Bitart/Acetaminophen (Hydrocodone/Acet 5/325 Tablet) 2 tab PO NOW ONE Stop: 03/31/22 19:31 Last Admin: 03/31/22 19:37 Dose: 2 tab Documented By: ELIZABETH Cyclobenzaprine HCl (Cyclobenzaprine 10 Mg Tablet) 10 mg PO NOW ONE Stop: 03/30/22 15:48 Last Admin: 03/30/22 16:06 Dose: 10 mg Documented By: MATTIE Cyclobenzaprine HCl (Cyclobenzaprine 10 Mg Tablet) 10 mg PO NOW ONE Stop: 03/30/22 20:10 Last Admin: 03/30/22 20:59 Dose: 10 mg Documented By: SCOTT Cyclobenzaprine HCl (Cyclobenzaprine 10 Mg Tablet) 10 mg PO NOW ONE Stop: 03/31/22 06:04 Last Admin: 03/31/22 06:39 Dose: 10 mg Documented By: JEANNIE Cyclobenzaprine HCl (Cyclobenzaprine 10 Mg Tablet) 10 mg PO NOW ONE Stop: 03/31/22 17:59 Last Admin: 03/31/22 18:23 Dose: 10 mg Documented By: ALISSA Cyclobenzaprine HCl (Cyclobenzaprine 10 Mg Tablet) 10 mg PO Q8HR JOSE Last Admin: 04/01/22 06:51 Dose: 10 mg Documented By: CAMERON Cyclobenzaprine HCl (Cyclobenzaprine 10 Mg Tablet) 10 mg PO NOW ONE Stop: 04/01/22 00:43 Last Admin: 04/01/22 00:45 Dose: 10 mg Documented By: MOLLY Docusate Sodium (Docusate 100 Mg Capsule) 100 mg PO NOW ONE Stop: 03/31/22 12:07 Last Admin: 03/31/22 12:11 Dose: 100 mg Documented By: AT Ferrous Sulfate (Ferrous Sulfate 325 Mg Tablet) 325 mg PO NOW ONE Stop: 03/30/22 20:18 Last Admin: 03/30/22 20:59 Dose: 325 mg Documented By: SCOTT Ferrous Sulfate (Ferrous Sulfate 325 Mg Tablet) 325 mg PO NOW ONE Stop: 03/31/22 18:21 Last Admin: 03/31/22 18:40 Dose: 325 mg Documented By: ALISSA Gabapentin (Gabapentin 600 Mg Tablet) 600 mg PO NOW ONE Stop: 03/31/22 18:22 Last Admin: 03/31/22 18:40 Dose: 600 mg Documented By: ALISSA Gabapentin (Gabapentin 600 Mg Tablet) 600 mg PO BID JOSE Last Admin: 04/01/22 09:58 Dose: Not Given Documented By: Admin: 04/01/22 06:50 Dose: 600 mg Documented By: CAMERON Lidocaine (Lidocaine Patch 1 Each Adh..Patch) 1 each TOP NOW ONE Stop: 03/30/22 15:50 Last Admin: 03/30/22 16:06 Dose: 1 each Documented By: MLShabana Metoprolol Succinate (Metoprolol Er 50 Mg Tablet) 50 mg PO NOW ONE Stop: 03/30/22 20:18 Last Admin: 03/30/22 20:59 Dose: 50 mg Documented By: SCOTT Metoprolol Succinate (Metoprolol Er 50 Mg Tablet) 50 mg PO NOW ONE Stop: 03/31/22 18:29 Last Admin: 03/31/22 18:40 Dose: 50 mg Documented By: ALISSA Metoprolol Succinate (Metoprolol Er 50 Mg Tablet) 50 mg PO NOW [facility] Nortriptyline HCl (Nortriptyline Hcl 25 Mg Capsule) 25 mg PO NOW ONE Stop: 03/30/22 20:19 Last Admin: 03/30/22 20:58 Dose: 25 mg Documented By: SCOTT Pantoprazole Sodium (Pantoprazole Dr 20 Mg Tablet) 20 mg PO NOW ONE Stop: 03/31/22 18:21 Last Admin: 03/31/22 18:41 Dose: 20 mg Documented By: ALISSA Pantoprazole Sodium (Pantoprazole Dr 20 Mg Tablet) 20 mg PO NOW [facility] Spironolactone (Spironolactone 25 Mg Tablet) 25 mg PO NOW ONE Stop: 03/31/22 18:21 Last Admin: 03/31/22 18:41 Dose: 25 mg Documented By: ALISSA Spironolactone (Spironolactone 25 Mg Tablet) 25 mg PO NOW [facility] Trimethoprim/Sulfamethoxazole (Trimeth/Sulfa 160/800 (Ds) Tablet) 1 tab PO NOW ONE Stop: 04/01/22 03:04 Last Admin: 04/01/22 03:09 Dose: 1 tab Documented By: SB Valsartan (Valsartan 80 Mg Tablet) 26 mg PO NOW ONE Stop: 03/30/22 20:18 Last Admin: 03/30/22 21:07 Dose: Not Given Documented By: EB Vital Signs Vital signs: Vital Signs - 8 hr 03/31/22 19:26 03/31/22 19:27 03/31/22 19:27 Pulse Rate 98 H Blood Pressure 181/93 H Pulse Oximetry 93 94 03/31/22 19:37 03/31/22 19:30 03/31/22 21:44 Pulse Rate 94 H 94 H 92 H Blood Pressure 181/93 H Pulse Oximetry 94 92 03/31/22 21:45 03/31/22 21:45 Pulse Rate 92 H Blood Pressure 134/65 Pulse Oximetry 91 <Ronny Brown MD - Last Filed: 05/12/22 08:49> Orders Ordered: Discontinued Medications Hydrocodone Bitart/Acetaminophen (Hydrocodone/Acet 5/325 Tablet) 1 tab PO NOW ONE Stop: 03/30/22 15:58 Last Admin: 03/30/22 16:06 Dose: 1 tab Documented By: MATTIE Hydrocodone Bitart/Acetaminophen (Hydrocodone/Acet 5/325 Tablet) 1 tab PO NOW ONE Stop: 03/30/22 20:10 Last Admin: 03/30/22 20:59 Dose: 1 tab Documented By: SCOTT Hydrocodone Bitart/Acetaminophen (Hydrocodone/Acet 5/325 Tablet) 1 tab PO NOW ONE Stop: 03/31/22 06:04 Last Admin: 03/31/22 06:39 Dose: 1 tab Documented By: JEANNIE Hydrocodone Bitart/Acetaminophen (Hydrocodone/Acet 5/325 Tablet) 1 tab PO NOW ONE Stop: 03/31/22 12:06 Last Admin: 03/31/22 12:11 Dose: 1 tab Documented By: AT Hydrocodone Bitart/Acetaminophen (Hydrocodone/Acet 5/325 Tablet) 2 tab PO NOW ONE Stop: 03/31/22 19:31 Last Admin: 03/31/22 19:37 Dose: 2 tab Documented By: ELIZABETH Cyclobenzaprine HCl (Cyclobenzaprine 10 Mg Tablet) 10 mg PO NOW ONE Stop: 03/30/22 15:48 Last Admin: 03/30/22 16:06 Dose: 10 mg Documented By: MATTIE Cyclobenzaprine HCl (Cyclobenzaprine 10 Mg Tablet) 10 mg PO NOW ONE Stop: 03/30/22 20:10 Last Admin: 03/30/22 20:59 Dose: 10 mg Documented By: SCOTT Cyclobenzaprine HCl (Cyclobenzaprine 10 Mg Tablet) 10 mg PO NOW ONE Stop: 03/31/22 06:04 Last Admin: 03/31/22 06:39 Dose: 10 mg Documented By: JEANNIE Cyclobenzaprine HCl (Cyclobenzaprine 10 Mg Tablet) 10 mg PO NOW ONE Stop: 03/31/22 17:59 Last Admin: 03/31/22 18:23 Dose: 10 mg Documented By: ALISSA Cyclobenzaprine HCl (Cyclobenzaprine 10 Mg Tablet) 10 mg PO Q8HR [facility] Last Admin: 04/01/22 06:51 Dose: 10 mg Documented By: CAMERON Cyclobenzaprine HCl (Cyclobenzaprine 10 Mg Tablet) 10 mg PO NOW ONE Stop: 04/01/22 00:43 Last Admin: 04/01/22 00:45 Dose: 10 mg Documented By: MOLLY Docusate Sodium (Docusate 100 Mg Capsule) 100 mg PO NOW ONE Stop: 03/31/22 12:07 Last Admin: 03/31/22 12:11 Dose: 100 mg Documented By: ANJANA Ferrous Sulfate (Ferrous Sulfate 325 Mg Tablet) 325 mg PO NOW ONE Stop: 03/30/22 20:18 Last Admin: 03/30/22 20:59 Dose: 325 mg Documented By: SCOTT Ferrous Sulfate (Ferrous Sulfate 325 Mg Tablet) 325 mg PO NOW ONE Stop: 03/31/22 18:21 Last Admin: 03/31/22 18:40 Dose: 325 mg Documented By: ALISSA Gabapentin (Gabapentin 600 Mg Tablet) 600 mg PO NOW ONE Stop: 03/31/22 18:22 Last Admin: 03/31/22 18:40 Dose: 600 mg Documented By: ALISSA Gabapentin (Gabapentin 600 Mg Tablet) 600 mg PO BID [facility] Last Admin: 04/01/22 09:58 Dose: Not Given Documented By: Admin: 04/01/22 06:50 Dose: 600 mg Documented By: CAMERON Lidocaine (Lidocaine Patch 1 Each Adh..Patch) 1 each TOP NOW ONE Stop: 03/30/22 15:50 Last Admin: 03/30/22 16:06 Dose: 1 each Documented By: MATTIE Metoprolol Succinate (Metoprolol Er 50 Mg Tablet) 50 mg PO NOW ONE Stop: 03/30/22 20:18 Last Admin: 03/30/22 20:59 Dose: 50 mg Documented By: SCOTT Metoprolol Succinate (Metoprolol Er 50 Mg Tablet) 50 mg PO NOW ONE Stop: 03/31/22 18:29 Last Admin: 03/31/22 18:40 Dose: 50 mg Documented By: ALISSA Metoprolol Succinate (Metoprolol Er 50 Mg Tablet) 50 mg PO NOW [facility] Nortriptyline HCl (Nortriptyline Hcl 25 Mg Capsule) 25 mg PO NOW ONE Stop: 03/30/22 20:19 Last Admin: 03/30/22 20:58 Dose: 25 mg Documented By: SCOTT Pantoprazole Sodium (Pantoprazole Dr 20 Mg Tablet) 20 mg PO NOW ONE Stop: 03/31/22 18:21 Last Admin: 03/31/22 18:41 Dose: 20 mg Documented By: ALISSA Pantoprazole Sodium (Pantoprazole Dr 20 Mg Tablet) 20 mg PO NOW [facility] Spironolactone (Spironolactone 25 Mg Tablet) 25 mg PO NOW ONE Stop: 03/31/22 18:21 Last Admin: 03/31/22 18:41 Dose: 25 mg Documented By: ALISSA Spironolactone (Spironolactone 25 Mg Tablet) 25 mg PO NOW [facility] Trimethoprim/Sulfamethoxazole (Trimeth/Sulfa 160/800 (Ds) Tablet) 1 tab PO NOW ONE Stop: 04/01/22 03:04 Last Admin: 04/01/22 03:09 Dose: 1 tab Documented By: SB Valsartan (Valsartan 80 Mg Tablet) 26 mg PO NOW ONE Stop: 03/30/22 20:18 Last Admin: 03/30/22 21:07 Dose: Not Given Documented By: SCOTT Reevaluation(s) Reevaluation #1: Reassessment now 1039 on March 31. I assumed care of this patient from Dr. Ryder at approximately 7:00 a.m.. Patient is comfortable lying in bed. She says that she just had a physical therapy assessment. The physical therapy assessment is that she is not able to get up independently out of bed. Will await social work input as to disposition. The patient is comfortable now lying in bed. Vital Signs Vital signs: Vital Signs - 8 hr 03/31/22 19:26 03/31/22 19:27 03/31/22 19:27 Pulse Rate 98 H Blood Pressure 181/93 H Pulse Oximetry 93 94 03/31/22 19:37 03/31/22 19:30 03/31/22 21:44 Pulse Rate 94 H 94 H 92 H Blood Pressure 181/93 H Pulse Oximetry 94 92 03/31/22 21:45 03/31/22 21:45 Pulse Rate 92 H Blood Pressure 134/65 Pulse Oximetry 91 <Marlen Ryder MD - Last Filed: 04/10/22 18:03> Orders Ordered: Discontinued Medications Hydrocodone Bitart/Acetaminophen (Hydrocodone/Acet 5/325 Tablet) 1 tab PO NOW ONE Stop: 03/30/22 15:58 Last Admin: 03/30/22 16:06 Dose: 1 tab Documented By: MATTIE Hydrocodone Bitart/Acetaminophen (Hydrocodone/Acet 5/325 Tablet) 1 tab PO NOW ONE Stop: 03/30/22 20:10 Last Admin: 03/30/22 20:59 Dose: 1 tab Documented By: SCOTT Hydrocodone Bitart/Acetaminophen (Hydrocodone/Acet 5/325 Tablet) 1 tab PO NOW ONE Stop: 03/31/22 06:04 Last Admin: 03/31/22 06:39 Dose: 1 tab Documented By: JEANNIE Hydrocodone Bitart/Acetaminophen (Hydrocodone/Acet 5/325 Tablet) 1 tab PO NOW ONE Stop: 03/31/22 12:06 Last Admin: 03/31/22 12:11 Dose: 1 tab Documented By: AT Hydrocodone Bitart/Acetaminophen (Hydrocodone/Acet 5/325 Tablet) 2 tab PO NOW ONE Stop: 03/31/22 19:31 Last Admin: 03/31/22 19:37 Dose: 2 tab Documented By: ELIZABETH Cyclobenzaprine HCl (Cyclobenzaprine 10 Mg Tablet) 10 mg PO NOW ONE Stop: 03/30/22 15:48 Last Admin: 03/30/22 16:06 Dose: 10 mg Documented By: MATTIE Cyclobenzaprine HCl (Cyclobenzaprine 10 Mg Tablet) 10 mg PO NOW ONE Stop: 03/30/22 20:10 Last Admin: 03/30/22 20:59 Dose: 10 mg Documented By: SCOTT Cyclobenzaprine HCl (Cyclobenzaprine 10 Mg Tablet) 10 mg PO NOW ONE Stop: 03/31/22 06:04 Last Admin: 03/31/22 06:39 Dose: 10 mg Documented By: JEANNIE Cyclobenzaprine HCl (Cyclobenzaprine 10 Mg Tablet) 10 mg PO NOW ONE Stop: 03/31/22 17:59 Last Admin: 03/31/22 18:23 Dose: 10 mg Documented By: ALISSA Cyclobenzaprine HCl (Cyclobenzaprine 10 Mg Tablet) 10 mg PO Q8HR [facility] Last Admin: 04/01/22 06:51 Dose: 10 mg Documented By: CAMERON Cyclobenzaprine HCl (Cyclobenzaprine 10 Mg Tablet) 10 mg PO NOW ONE Stop: 04/01/22 00:43 Last Admin: 04/01/22 00:45 Dose: 10 mg Documented By: MOLLY Docusate Sodium (Docusate 100 Mg Capsule) 100 mg PO NOW ONE Stop: 03/31/22 12:07 Last Admin: 03/31/22 12:11 Dose: 100 mg Documented By: AT Ferrous Sulfate (Ferrous Sulfate 325 Mg Tablet) 325 mg PO NOW ONE Stop: 03/30/22 20:18 Last Admin: 03/30/22 20:59 Dose: 325 mg Documented By: SCOTT Ferrous Sulfate (Ferrous Sulfate 325 Mg Tablet) 325 mg PO NOW ONE Stop: 03/31/22 18:21 Last Admin: 03/31/22 18:40 Dose: 325 mg Documented By: ALISSA Gabapentin (Gabapentin 600 Mg Tablet) 600 mg PO NOW ONE Stop: 03/31/22 18:22 Last Admin: 03/31/22 18:40 Dose: 600 mg Documented By: ALISSA Gabapentin (Gabapentin 600 Mg Tablet) 600 mg PO BID [facility] Last Admin: 04/01/22 09:58 Dose: Not Given Documented By: Admin: 04/01/22 06:50 Dose: 600 mg Documented By: CAMERON Lidocaine (Lidocaine Patch 1 Each Adh..Patch) 1 each TOP NOW ONE Stop: 03/30/22 15:50 Last Admin: 03/30/22 16:06 Dose: 1 each Documented By: MATTIE Metoprolol Succinate (Metoprolol Er 50 Mg Tablet) 50 mg PO NOW ONE Stop: 03/30/22 20:18 Last Admin: 03/30/22 20:59 Dose: 50 mg Documented By: SCOTT Metoprolol Succinate (Metoprolol Er 50 Mg Tablet) 50 mg PO NOW ONE Stop: 03/31/22 18:29 Last Admin: 03/31/22 18:40 Dose: 50 mg Documented By: ALISSA Metoprolol Succinate (Metoprolol Er 50 Mg Tablet) 50 mg PO NOW [facility] Nortriptyline HCl (Nortriptyline Hcl 25 Mg Capsule) 25 mg PO NOW ONE Stop: 03/30/22 20:19 Last Admin: 03/30/22 20:58 Dose: 25 mg Documented By: EB Pantoprazole Sodium (Pantoprazole Dr 20 Mg Tablet) 20 mg PO NOW ONE Stop: 03/31/22 18:21 Last Admin: 03/31/22 18:41 Dose: 20 mg Documented By: ALISSA Pantoprazole Sodium (Pantoprazole Dr 20 Mg Tablet) 20 mg PO NOW [facility] Spironolactone (Spironolactone 25 Mg Tablet) 25 mg PO NOW ONE Stop: 03/31/22 18:21 Last Admin: 03/31/22 18:41 Dose: 25 mg Documented By: ALISSA Spironolactone (Spironolactone 25 Mg Tablet) 25 mg PO NOW [facility] Trimethoprim/Sulfamethoxazole (Trimeth/Sulfa 160/800 (Ds) Tablet) 1 tab PO NOW ONE Stop: 04/01/22 03:04 Last Admin: 04/01/22 03:09 Dose: 1 tab Documented By: SB Valsartan (Valsartan 80 Mg Tablet) 26 mg PO NOW ONE Stop: 03/30/22 20:18 Last Admin: 03/30/22 21:07 Dose: Not Given Documented By: EB Vital Signs Vital signs: Vital Signs - 8 hr 03/31/22 19:26 03/31/22 19:27 03/31/22 19:27 Pulse Rate 98 H Blood Pressure 181/93 H Pulse Oximetry 93 94 03/31/22 19:37 03/31/22 19:30 03/31/22 21:44 Pulse Rate 94 H 94 H 92 H Blood Pressure 181/93 H Pulse Oximetry 94 92 03/31/22 21:45 03/31/22 21:45 Pulse Rate 92 H Blood Pressure 134/65 Pulse Oximetry 91 <Carmenza Ken DO - Last Filed: 04/04/22 08:11> Orders Ordered: Discontinued Medications Hydrocodone Bitart/Acetaminophen (Hydrocodone/Acet 5/325 Tablet) 1 tab PO NOW ONE Stop: 03/30/22 15:58 Last Admin: 03/30/22 16:06 Dose: 1 tab Documented By: MLShabana Hydrocodone Bitart/Acetaminophen (Hydrocodone/Acet 5/325 Tablet) 1 tab PO NOW ONE Stop: 03/30/22 20:10 Last Admin: 03/30/22 20:59 Dose: 1 tab Documented By: SCOTT Hydrocodone Bitart/Acetaminophen (Hydrocodone/Acet 5/325 Tablet) 1 tab PO NOW ONE Stop: 03/31/22 06:04 Last Admin: 03/31/22 06:39 Dose: 1 tab Documented By: JEANNIE Hydrocodone Bitart/Acetaminophen (Hydrocodone/Acet 5/325 Tablet) 1 tab PO NOW ONE Stop: 03/31/22 12:06 Last Admin: 03/31/22 12:11 Dose: 1 tab Documented By: AT Hydrocodone Bitart/Acetaminophen (Hydrocodone/Acet 5/325 Tablet) 2 tab PO NOW ONE Stop: 03/31/22 19:31 Last Admin: 03/31/22 19:37 Dose: 2 tab Documented By: ELIZABETH Cyclobenzaprine HCl (Cyclobenzaprine 10 Mg Tablet) 10 mg PO NOW ONE Stop: 03/30/22 15:48 Last Admin: 03/30/22 16:06 Dose: 10 mg Documented By: MATTIE Cyclobenzaprine HCl (Cyclobenzaprine 10 Mg Tablet) 10 mg PO NOW ONE Stop: 03/30/22 20:10 Last Admin: 03/30/22 20:59 Dose: 10 mg Documented By: SCOTT Cyclobenzaprine HCl (Cyclobenzaprine 10 Mg Tablet) 10 mg PO NOW ONE Stop: 03/31/22 06:04 Last Admin: 03/31/22 06:39 Dose: 10 mg Documented By: JEANNIE Cyclobenzaprine HCl (Cyclobenzaprine 10 Mg Tablet) 10 mg PO NOW ONE Stop: 03/31/22 17:59 Last Admin: 03/31/22 18:23 Dose: 10 mg Documented By: ALISSA Cyclobenzaprine HCl (Cyclobenzaprine 10 Mg Tablet) 10 mg PO Q8HR [facility] Last Admin: 04/01/22 06:51 Dose: 10 mg Documented By: CAMERON Cyclobenzaprine HCl (Cyclobenzaprine 10 Mg Tablet) 10 mg PO NOW ONE Stop: 04/01/22 00:43 Last Admin: 04/01/22 00:45 Dose: 10 mg Documented By: MOLLY Docusate Sodium (Docusate 100 Mg Capsule) 100 mg PO NOW ONE Stop: 03/31/22 12:07 Last Admin: 03/31/22 12:11 Dose: 100 mg Documented By: AT Ferrous Sulfate (Ferrous Sulfate 325 Mg Tablet) 325 mg PO NOW ONE Stop: 03/30/22 20:18 Last Admin: 03/30/22 20:59 Dose: 325 mg Documented By: EB Ferrous Sulfate (Ferrous Sulfate 325 Mg Tablet) 325 mg PO NOW ONE Stop: 03/31/22 18:21 Last Admin: 03/31/22 18:40 Dose: 325 mg Documented By: CTS Gabapentin (Gabapentin 600 Mg Tablet) 600 mg PO NOW ONE Stop: 03/31/22 18:22 Last Admin: 03/31/22 18:40 Dose: 600 mg Documented By: CTS Gabapentin (Gabapentin 600 Mg Tablet) 600 mg PO BID [facility] Last Admin: 04/01/22 09:58 Dose: Not Given Documented By: Admin: 04/01/22 06:50 Dose: 600 mg Documented By: CAMERON Lidocaine (Lidocaine Patch 1 Each Adh..Patch) 1 each TOP NOW ONE Stop: 03/30/22 15:50 Last Admin: 03/30/22 16:06 Dose: 1 each Documented By: MLShabana Metoprolol Succinate (Metoprolol Er 50 Mg Tablet) 50 mg PO NOW ONE Stop: 03/30/22 20:18 Last Admin: 03/30/22 20:59 Dose: 50 mg Documented By: EB Metoprolol Succinate (Metoprolol Er 50 Mg Tablet) 50 mg PO NOW ONE Stop: 03/31/22 18:29 Last Admin: 03/31/22 18:40 Dose: 50 mg Documented By: ALISSA Metoprolol Succinate (Metoprolol Er 50 Mg Tablet) 50 mg PO NOW [facility] Nortriptyline HCl (Nortriptyline Hcl 25 Mg Capsule) 25 mg PO NOW ONE Stop: 03/30/22 20:19 Last Admin: 03/30/22 20:58 Dose: 25 mg Documented By: EB Pantoprazole Sodium (Pantoprazole Dr 20 Mg Tablet) 20 mg PO NOW ONE Stop: 03/31/22 18:21 Last Admin: 03/31/22 18:41 Dose: 20 mg Documented By: CTS Pantoprazole Sodium (Pantoprazole Dr 20 Mg Tablet) 20 mg PO NOW [facility] Spironolactone (Spironolactone 25 Mg Tablet) 25 mg PO NOW ONE Stop: 03/31/22 18:21 Last Admin: 03/31/22 18:41 Dose: 25 mg Documented By: CTS Spironolactone (Spironolactone 25 Mg Tablet) 25 mg PO NOW JOSE Trimethoprim/Sulfamethoxazole (Trimeth/Sulfa 160/800 (Ds) Tablet) 1 tab PO NOW ONE Stop: 04/01/22 03:04 Last Admin: 04/01/22 03:09 Dose: 1 tab Documented By: SB Valsartan (Valsartan 80 Mg Tablet) 26 mg PO NOW ONE Stop: 03/30/22 20:18 Last Admin: 03/30/22 21:07 Dose: Not Given Documented By: EB Vital Signs Vital signs: Vital Signs - 8 hr 03/31/22 19:26 03/31/22 19:27 03/31/22 19:27 Pulse Rate 98 H Blood Pressure 181/93 H Pulse Oximetry 93 94 03/31/22 19:37 03/31/22 19:30 03/31/22 21:44 Pulse Rate 94 H 94 H 92 H Blood Pressure 181/93 H Pulse Oximetry 94 92 03/31/22 21:45 03/31/22 21:45 Pulse Rate 92 H Blood Pressure 134/65 Pulse Oximetry 91 MDM - Back Pain/Injury <Sathya Hampton PA-C - Last Filed: 03/30/22 20:22> Medical Records Attestation: I reviewed the patient's medical records. Lab Data Labs: Lab Results 03/30/22 04/01/22 Range/Units 18:43 00:58 Urine Color Yellow Urine Appearance Cloudy Urine pH 5.0 (4.5-8.0) Ur Specific [place] 1.025 (1.000-1.035) Urine Protein 2+ H (Negative) Urine Glucose (UA) Negative (Negative) g/dL Urine Ketones Trace H (NEGATIVE) Urine Occult Blood 3+ H (Negative) Urine Nitrate Negative (Negative) Urine Bilirubin Negative (NEGATIVE) Urine Urobilinogen 0.2 (0.2) E.U./dL Ur Leukocyte Esterase 2+ H (NEGATIVE) Urine RBC 30-100/hpf H (0-5/HPF) Urine WBC 30-100/hpf H (0-5/HPF) Ur Squamous Epith Cells 1-5 /hpf (0-5/HPF) Urine Bacteria Many (>30) H (None) Ur Culture Indicated? Specimen cultured SARS-CoV-2 (PCR) Negative (Negative) Imaging Data CT - cervical spine: Radiologist's Impression: PROCEDURE:? CT CERVICAL SPINE WO CON ? INDICATIONS:? back pain ? TECHNIQUE:? Noncontrast 3 mm thick sections acquired from the skull base to the T4 level.? Sagittal and coronal reformats were then constructed.? For radiation dose reduction, the following was used:? automated exposure control, adjustment of mA and/or kV according to patient size.? ? COMPARISON:? [facility], [facility], [facility] CERVICAL SPINE WITH OBLIQUES, 05/30/2018, 8:51. ? FINDINGS:? Image quality:? Excellent.? ? Bones:? No acute fractures or dislocations.? Generalized osteopenia.? Visualized superior ribs are intact.? Multilevel degenerative changes are seen throughout the cervical spine including disc space narrowing degenerative endplate changes as well as uncovertebral joint and facet hypertrophy. ? Soft tissues:? Prevertebral soft tissues are normal in thickness.? No paravertebral hematomas.? No apical pneumothoraces.? ? ? IMPRESSION:? No acute cervical spine fracture or subluxation.? Multilevel spondylosis.? Dictated by: Niranjan Monae M.D. on 03/30/2022 at 16:21 ? ? Approved by: Niranjan Monae M.D. on 03/30/2022 at 16:24 ? CT thoracic spine: Radiologist's Impression: PROCEDURE:? CT THORACIC SPINE WO CON ? INDICATIONS:? back pain ? TECHNIQUE:? Noncontrast 3 mm thick sections acquired through the region of interest in the thoracic spine.? Sagittal and coronal reformats were then constructed.? For radiation dose reduction, the following was used:? automated exposure control.? ? COMPARISON:? [facility], CR, XR CHEST 2V, 08/30/2018, 17:15. ? FINDINGS:? Image quality:? Excellent.? ? Bones:? There is moderate to severe scoliotic curvature of the thoracolumbar spine.? Severe generalized osteopenia.? Multiple osseous compression fractures are seen of uncertain age, involving T7 through L1.? No suspicious sclerotic or lytic bony lesions.? Central spinal canal is of normal overall caliber.? ? Soft tissues:? There is a large hiatal hernia containing the majority of the stomach with atelectasis of the adjacent left lung base.? No paravertebral masses or hematomas.? Visualized posteromedial lungs appear clear.? ? IMPRESSION:? 1. Multiple thoracic compression fractures of indeterminate age extending from T7 through L1.? Recommend correlation for point tenderness. 2. Generalized osteopenia. 3. Severe scoliotic curvature of the thoracolumbar spine. 4. Large hiatal hernia.? ? ? Dictated by: Niranjan Monae M.D. on 03/30/2022 at 15:27 ? ? Approved by: Niranjan Monae M.D. on 03/30/2022 at 15:35 ? CT lumbar spine: Radiologist's Impression: PROCEDURE:? CT LUMBAR SPINE WO CON ? INDICATIONS:? back pain ? TECHNIQUE:? Noncontrast 3 mm thick sections acquired from the T12 level to the sacrum.? Sagittal and coronal reformats were constructed.? For radiation dose reduction, the following was used:? automated exposure control.? ? COMPARISON:? [facility], CR, XR LUMBAR SPINE 2-3V, 01/03/2022, 19:09. ? FINDINGS:? Image quality:? Excellent.? ? Bones:? There is severe levoconvex curvature of the lumbar spine.? Generalized osteopenia.? Multilevel [id number]-vbrqhmur vertebral body compression fractures are seen involving the included lower thoracic vertebra as well as the L1 and L2 vertebral bodies as well as L4 and L5.? No retropulsion of osseous fragments is seen. ? Multilevel disc space narrowing and degenerative endplate changes and facet hyp ertrophy are seen throughout the lumbar spine.? No high-grade narrowing of the bony spinal canal is seen. ? Degenerative changes are seen in the bilateral sacroiliac joints.? No suspicious osteoblastic lesion is seen. ? Soft tissues:? No retroperitoneal masses or hematomas.? Moderate aortic atherosclerotic calcifications.? There is fatty infiltration of the paraspinous musculature.? Multiple diverticula are seen in the colon without acute inflammatory changes.? A pessary device is noted.? There is a large hiatal hernia. ? IMPRESSION:? 1. Generalized osteopenia.? Multiple compression fractures of indeterminate age are seen throughout the lumbar spine and included lower thoracic spine with mild to moderate loss of vertebral body height. 2. Marked levoconvex curvature of the lumbar spine. 3. Large hiatal hernia.? ? ? Dictated by: Niranjan Monae M.D. on 03/30/2022 at 16:24 ? ? Approved by: Niranjan Monae M.D. on 03/30/2022 at 16:30 ? [facility] Narrative Medical decision making narrative: 81-year-old female with past medical history chronic renal failure, CHF, osteoporosis, essential hypertension, chronic back pain, idiopathic scoliosis, stress induced cardiomyopathy, hiatal hernia presents to the ED with 6 days of mid back pain. Concern for fracture/dislocation versus musculoskeletal sprain/strain. Will obtain CT thoracic spine, treat pain with lidocaine patch, Flexeril and hydrocodone. Will consult social work. Will reassess. CT spine shows multiple compression fractures of indeterminate age from T7 down to L5. Dr. Wray from ortho was consulted, she recommends pain management given stable fractures. Social work was consulted, they will work to secure a placement in a SNF. Patient is currently boarding in the ED, waiting for a physical therapy eval, SNF placement. Patient's pain is well controlled with hydrocodone and Flexeril. Patient's nighttime medications given. Care of the patient is now transferred to Dr. Marlen Llamas. <Ronny Brown MD - Last Filed: 05/12/22 08:49> Lab Data Labs: Lab Results 03/30/22 04/01/22 Range/Units 18:43 00:58 Urine Color Yellow Urine Appearance Cloudy Urine pH 5.0 (4.5-8.0) Ur Specific Clyde 1.025 (1.000-1.035) Urine Protein 2+ H (Negative) Urine Glucose (UA) Negative (Negative) g/dL Urine Ketones Trace H (NEGATIVE) Urine Occult Blood 3+ H (Negative) Urine Nitrate Negative (Negative) Urine Bilirubin Negative (NEGATIVE) Urine Urobilinogen 0.2 (0.2) E.U./dL Ur Leukocyte Esterase 2+ H (NEGATIVE) Urine RBC 30-100/hpf H (0-5/HPF) Urine WBC 30-100/hpf H (0-5/HPF) Ur Squamous Epith Cells 1-5 /hpf (0-5/HPF) Urine Bacteria Many (>30) H (None) Ur Culture Indicated? Specimen cultured SARS-CoV-2 (PCR) Negative (Negative) <Marlen Ryder MD - Last Filed: 04/10/22 18:03> Lab Data Labs: Lab Results 03/30/22 04/01/22 Range/Units 18:43 00:58 Urine Color Yellow Urine Appearance Cloudy Urine pH 5.0 (4.5-8.0) Ur Specific Clyde 1.025 (1.000-1.035) Urine Protein 2+ H (Negative) Urine Glucose (UA) Negative (Negative) g/dL Urine Ketones Trace H (NEGATIVE) Urine Occult Blood 3+ H (Negative) Urine Nitrate Negative (Negative) Urine Bilirubin Negative (NEGATIVE) Urine Urobilinogen 0.2 (0.2) E.U./dL Ur Leukocyte Esterase 2+ H (NEGATIVE) Urine RBC 30-100/hpf H (0-5/HPF) Urine WBC 30-100/hpf H (0-5/HPF) Ur Squamous Epith Cells 1-5 /hpf (0-5/HPF) Urine Bacteria Many (>30) H (None) Ur Culture Indicated? Specimen cultured SARS-CoV-2 (PCR) Negative (Negative) MDM Narrative Medical decision making narrative: 81-year-old female with past medical history chronic renal failure, CHF, o steoporosis, essential hypertension, chronic back pain, idiopathic scoliosis, stress induced cardiomyopathy, hiatal hernia presents to the ED with 6 days of mid back pain. Concern for fracture/dislocation versus musculoskeletal sprain/strain. Will obtain CT thoracic spine, treat pain with lidocaine patch, Flexeril and hydrocodone. Will consult social work. Will reassess. CT spine shows multiple compression fractures of indeterminate age from T7 down to L5. Dr. Wray from ortho was consulted, she recommends pain management given stable fractures. Social work was consulted, they will work to secure a placement in a SNF. Patient is currently boarding in the ED, waiting for a physical therapy eval, SNF placement. Patient's pain is well controlled with hydrocodone and Flexeril. Patient's nighttime medications given. Care of the patient is now transferred to Dr. Marlen Llamas. 03/31/22 pm quiet evening. Single dose of [place] and Flexeril given 03/31/[address] Brown. burlap worker has helped arrange for residential admission to [facility]. Orders are signed by Dr. Montoya [facility], transfer via cab units anticipated 9 8:00 a.m. around 30. 03/31/[address] Ryder routine chronic meds are ordered. Patient is noted to have some blood after voiding in a bedside commode. Urine is sent for urinalysis and shows trace ketones, occult blood, leukocyte esterase, red blood cells, white blood cells, many bacteria and a sent for culture. Previous urine cultures have shown pansensitive to E coli. Will begin her on Septra b.i.d. to continue for 7 days. She is minimally symptomatic, no signs of sepsis. Has had a quiet night overall with a dose of [place] and a dose of Flexeril. 9/7 am expect thransfer to [facility] 10:30am <Carmenza Ken, DO - Last Filed: 04/04/22 08:11> Lab Data Labs: Lab Results 03/30/22 04/01/22 Range/Units 18:43 00:58 Urine Color Yellow Urine Appearance Cloudy Urine pH 5.0 (4.5-8.0) Ur Specific Clyde 1.025 (1.000-1.035) Urine Protein 2+ H (Negative) Urine Glucose (UA) Negative (Negative) g/dL Urine Ketones Trace H (NEGATIVE) Urine Occult Blood 3+ H (Negative) Urine Nitrate Negative (Negative) Urine Bilirubin Negative (NEGATIVE) Urine Urobilinogen 0.2 (0.2) E.U./dL Ur Leukocyte Esterase 2+ H (NEGATIVE) Urine RBC 30-100/hpf H (0-5/HPF) Urine WBC 30-100/hpf H (0-5/HPF) Ur Squamous Epith Cells 1-5 /hpf (0-5/HPF) Urine Bacteria Many (>30) H (None) Ur Culture Indicated? Specimen cultured SARS-CoV-2 (PCR) Negative (Negative) MDM Narrative Medical decision making narrative: 81-year-old female with past medical history chronic renal failure, CHF, osteoporosis, essential hypertension, chronic back pain, idiopathic scoliosis, stress induced cardiomyopathy, hiatal hernia presents to the ED with 6 days of mid back pain. Concern for fracture/dislocation versus musculoskeletal sprain/strain. Will obtain CT thoracic spine, treat pain with lidocaine patch, Flexeril and hydrocodone. Will consult social work. Will reassess. CT spine shows multiple compression fractures of indeterminate age from T7 down to L5. Dr. Wray from ortho was consulted, she recommends pain management given stable fractures. Social work was consulted, they will work to secure a placement in a SNF. Patient is currently boarding in the ED, waiting for a physical therapy eval, SNF placement. Patient's pain is well controlled with hydrocodone and Flexeril. Patient's nighttime medications given. Care of the patient is now transferred to Dr. Marlen Llamas. 03/31/22 pm quiet evening. Single dose of [place] and Flexeril given 03/31/[address] Brown. burlap worker has helped arrange for residential admission to [facility]. Orders are signed by Dr. Montoya [facility], transfer via cab units anticipated 8:00 a.m. around 10 30. 03/31/[address] Ryder routine chronic meds are ordered. Patient is noted to have some blood after voiding in a bedside commode. Urine is sent for urinalysis and shows trace ketones, occult blood, leukocyte esterase, red blood cells, white blood cells, many bacteria and a sent for culture. Previous urine cultures have shown pansensitive to E coli. Will begin her on b.i.d. to continue for 7 days. She is minimally symptomatic, no signs of sepsis. Has had a quiet night overall with a dose of [place] and a dose of Flexeril. 9/ am expect thransfer to [facility] 10:30am Patient signed out to myself by Dr. Ryder 04/01/22 while awaiting transport. [facility] did request some changes to the chart as well as printed prescription for patient's home hydrocodone does not appear that this medication has been stopped and preprinted prescription for morphine was already included. Discharge Plan Departure Patient Disposition: Xfer Inpatient Rehab Clinical Impression: Closed compression fracture of lumbar vertebra, Acute UTI Activity Restrictions/Additional Instructions: This will serve as patient's discharge summary. 81-year-old female with past medical history chronic renal failure, CHF, oste oporosis, essential hypertension, chronic back pain, idiopathic scoliosis, stress induced cardiomyopathy, hiatal hernia presents to the ED with 6 days of mid back pain.? Concern for fracture/dislocation versus musculoskeletal sprain/strain.? Will obtain CT thoracic spine, treat pain with lidocaine patch, Flexeril and hydrocodone.? Will consult social work. Will reassess. CT spine shows multiple compression fractures of indeterminate age from T7 down to L5.? Dr. Wray from ortho was consulted, she recommends pain management given stable fractures.? Social work was consulted, they will work to secure a placement in a SNF.? Patient is currently boarding in the ED, waiting for a physical therapy eval, SNF placement.? Patient's pain is well controlled with hydrocodone and Flexeril.? Patient's nighttime medications given. Care of the patient is now transferred to Dr. Marlen Llamas. 03/31/22 pm quiet evening.? Single dose of [place] and Flexeril given 03/31/22 day? Dr Brown.? burlap worker has helped arrange for residential admission to [facility].? Orders are signed by Dr. Montoya [facility], transfer via cab units anticipated 9 8:00 a.m. around 10 30.? 03/31/[address] Ryder routine chronic meds are ordered.? Patient is noted to have some blood after voiding in a bedside commode.? Urine is sent for urinalysis and shows trace ketones, occult blood, leukocyte esterase, red blood cells, white blood cells, many bacteria and a sent for culture.? Previous urine cultures have shown pansensitive to E coli.? Will begin her on Septra b.i.d. to continue for 7 days.? She is minimally symptomatic, no signs of sepsis.? Has had a quiet night overall with a? dose of [place] and a dose of Flexeril. 04/01 am? expect transfer to [facility] for therapy at 10:30am Discharge assessment: Ready for discharge to special nursing facility. Diagnosis subacute compression spinal fractures and intractable pain and decreased mobility. Discharge plan: Diet as tolerated Physical therapy to see evaluate and treat. Patient disposition: [facility] facility Transfer to: [facility] Under care of provider: Physician at the facility. Medications as noted including morphine sulfate 15 mg 1 p.o. q.6 as needed for severe pain. Acute UTI dx early am 04/01. Septra DS BID started, will need to complete 5 day course Prescriptions: New morphine 15 mg tablet 15 mg PO Q4H Qty: 14 0RF morphine 15 mg tablet 15 mg PO Q6H PRN (Reason: Back Pain) Qty: 14 0RF sulfamethoxazole-trimethoprim [Bactrim DS] 800-160 mg tablet 1 tab PO BID Qty: 10 0RF hydrocodone bitartrate 10 mg capsule, oral only, ER 12hr 10 mg PO Q12H PRN (Reason: pain) Qty: 14 0RF No Action vitamin E 400 unit Capsule 400 unit PO DAILY Qty: 0 (DME) Disabled Parking Permit Qty: 1 0RF Rx Instructions: Patient qualifies for disabled parking as per the attached form. alendronate [Fosamax] 70 mg tablet 70 mg PO QWEEK Qty: 12 4RF gabapentin [Neurontin] 600 mg tablet 600 mg PO BID Qty: 180 3RF omeprazole 40 mg capsule,delayed release(DR/EC) 40 mg PO QDAY Qty: 90 3RF nortriptyline 25 mg capsule 50 mg PO HS Qty: 180 0RF metoprolol succinate 50 mg tablet extended release 24 hr 50 mg PO BID Qty: 180 3RF hydrocodone-acetaminophen 5-325 mg tablet See Rx Instructions .ROUTE .COMPLEX Qty: 90 0RF Dose Instruction: take 1 to 2 tablets by mouth every 4 hours if needed for back pain Rx Instructions: take 1 to 2 tablets by mouth every 4 hours if needed for back pain omega-3 fatty acids 1,000 mg capsule 1,000 mg PO DAILY cholecalciferol (vitamin D3) 25 mcg (1,000 unit) capsule 25 mcg PO DAILY ferrous sulfate [Iron (ferrous sulfate)] 325 mg (65 mg iron) tablet 325 mg PO DAILY spironolactone 25 mg tablet 25 mg PO DAILY Entresto 24-26 mg tablet 1 tab PO BID glucos sul [id number] [Glucosamine Chondroitin] 1 cap PO DAILY lidocaine 4 % adhesive patch,medicated 1 patch topical BID PRN (Reason: pain) Qty: 15 0RF Rx Instructions: may leave on for up to 12 hrs hydrocodone-acetaminophen 5-325 mg tablet 1 tab PO BID PRN (Reason: pain) Qty: 14 0RF diclofenac sodium 3 % gel 1 applic topical TID PRN (Reason: low back pain) Qty: 100 0RF cyclobenzaprine 10 mg Tablet 10 mg PO TID PRN (Reason: Back Pain) Referrals: Charles Castaneda MD [Primary Care Provider] - <Ronny Bronw MD - Last Filed: 05/12/22 08:49> Cosign ED Attending Cosignature Attestation: I was immediately available for consultation of this patient was seen and evaluated by the APC in the department.
[2022-03-30] MEDS: HYDROCODONE/ACET 5/325 TABLET 1 TAB PO ×2 (16:06→20:59)
[2022-03-30] MEDS: CYCLOBENZAPRINE 10 MG TABLET PO ×2 (16:06→20:59)
[2022-03-30] MEDS: LIDOCAINE PATCH 1 EACH ADH..PATCH TOP (16:06)
--- NOTE | 2022-03-30 16:41 | DI.CT.S_ITS ---
PROCEDURE: CT CERVICAL SPINE WO CON INDICATIONS: back pain TECHNIQUE: Noncontrast 3 mm thick sections acquired from the skull base to the T4 level. Sagittal and coronal reformats were then constructed. For radiation dose reduction, the following was used: automated exposure control, adjustment of mA and/or kV according to patient size. COMPARISON: [facility], CR, XR CERVICAL SPINE WITH OBLIQUES, 05/30/2018, 8:51. FINDINGS: Image quality: Excellent. Bones: No acute fractures or dislocations. Generalized osteopenia. Visualized superior ribs are intact. Multilevel degenerative changes are seen throughout the cervical spine including disc space narrowing degenerative endplate changes as well as uncovertebral joint and facet hypertrophy. Soft tissues: Prevertebral soft tissues are normal in thickness. No paravertebral hematomas. No apical pneumothoraces. IMPRESSION: No acute cervical spine fracture or subluxation. Multilevel spondylosis. Dictated by: Niranjan Monae M.D. on 03/30/2022 at 16:21 Approved by: Niranjan Monae M.D. on 03/30/2022 at 16:24
--- NOTE | 2022-03-30 16:41 | DI.CT.S_ITS ---
PROCEDURE: CT LUMBAR SPINE WO CON INDICATIONS: back pain TECHNIQUE: Noncontrast 3 mm thick sections acquired from the T12 level to the sacrum. Sagittal and coronal reformats were constructed. For radiation dose reduction, the following was used: automated exposure control. COMPARISON: [facility], CR, XR LUMBAR SPINE 2-3V, 01/03/2022, 19:09. FINDINGS: Image quality: Excellent. Bones: There is severe levoconvex curvature of the lumbar spine. Generalized osteopenia. Multilevel [id number]-[id number] vertebral body compression fractures are seen involving the included lower thoracic vertebra as well as the L1 and L2 vertebral bodies as well as L4 and L5. No retropulsion of osseous fragments is seen. Multilevel disc space narrowing and degenerative endplate changes and facet hypertrophy are seen throughout the lumbar spine. No high-grade narrowing of the bony spinal canal is seen. Degenerative changes are seen in the bilateral sacroiliac joints. No suspicious osteoblastic lesion is seen. Soft tissues: No retroperitoneal masses or hematomas. Moderate aortic atherosclerotic calcifications. There is fatty infiltration of the paraspinous musculature. Multiple diverticula are seen in the colon without acute inflammatory changes. A pessary device is noted. There is a large hiatal hernia. IMPRESSION: 1. Generalized osteopenia. Multiple compression fractures of indeterminate age are seen throughout the lumbar spine and included lower thoracic spine with mild to moderate loss of vertebral body height. 2. Marked levoconvex curvature of the lumbar spine. 3. Large hiatal hernia. Dictated by: Niranjan Monae M.D. on 03/30/2022 at 16:24 Approved by: Niranjan Monae M.D. on 03/30/2022 at 16:30
--- NOTE | 2022-03-30 17:49 | CM.DANOTE ---
Addendum entered by Airam Lynn 03/31/22 10:39: DCP/Continued: Reviewed chart. Patient currently holding in ED for SNF bed. Patient has private insurance [employer]BS out of [place]. Received call from December at [facility], she reports that they do not accept this insurance unless all SNF's full and no place else can be found. At this time it does not appear COVID waiver needed because patient has insurance and meets criteria for SNF. PT evaluation completed this AM by Collette and she confirms that SNF best option. Placed call to contracted BCBS provider Katie at [facility] she is in agreement to review for admit. P: Pending. [facility] reviewing. KJS Original Note: DCP Assessment Note Patient is 81 y/o female who resides at [facility]. Patient presents to ED due to increase in back pain and inability to complete ADLs in the last 2 days due to change and increase in back pain. Patient endorses she is typically independent at baseline but has been unable to ambulate, get to the bathroom and has been having her meals delivered. Patient has hx of chronic renal failure, CHF, essential Hypertension, chronic back pain, idiopathic scoliosis, stress induced cardiomyopathy, and hiatal hernia. Patient endorses hx of back fracture in 2018 that led to SNF rehab stay for several weeks at [facility]. Patient's PCP is Dr. Castaneda, patient has Medicare and [employer] [place] [employer] insurance. Per CT scan, patient presents with multiple vertebral body compression fractures along the lumbar spine. WARP TIER enters room to meet with patient. Patient presents as A/Ox3. Patient endorses that due to the increase in her pain and concern with ability to manage ADLs she is requesting SNF rehab. Patient endorses she is independent with ADLs at baseline and would like assistance to get back to baseline. Patient endorses her goal of care is to live independently and continue to live at [facility] after SNF rehab. Patient endorses that she drives, she uses a FWW with wheels at baseline and a cane when out in public. Patient denies recent GLFs. Patient has a daughter Phi that lives locally in [place] and daughter Marina that lives in [place]. Patient endorses [facility] SNF rehab is her preference. SNF Search (via Covid Waiver): WARP TIER calls December at [facility] and leaves reviewing patient requesting return call. Ruth can review medical records via EMR. WARP TIER calls Shira at [facility] and leaves requesting return call, WARP TIER to fax clinicals for review. WARP TIER calls Katie at [facility] and leaves requesting return call, WARP TIER to fax clinicals for review. Plan: PT to evaluate patient, patient to board in ED awaiting SNF rehab acceptance and transfer. WARP TIER to complete PASSR. Dyana Peoples SONG WRITER Discharge Planning/Care Management CM Discharge Assessment Start: 03/30/22 17:43 Freq: Status: Active Protocol: Document 03/30/22 17:44 LN (Rec: 03/30/22 17:48 LN [id number]) Discharge Planning Assessment Advance Directives? Yes History Provided By Patient,Medical Record Prior Living Arrangements [facility] Household Members none Type of transportation used prior to Drives own vehicle admit Facility Name Admitted From: [facility] Independent with ADL's No Is patient alert and oriented? Yes Needs Assistance With Bathing,Meal Prep,Toileting Comment Patient endorses for the last few days she has not been able to manage ADLs independently due to back pain. Caregiver for Another No DME Already Rented / Owned FWW / Walker,Cane Comment Patient endorses she uses a FWW with wheels at baseline and uses cane when she is out in public at baseline. Patient/Family Preference Long Term Facility Comment Patient prefers [facility], left VM with Ruth this evening. Discharge Plan Long Term Facility If patient plan is SNF: Has PASSR been No: WARP TIER to complete completed? Medicare Choice List Provided Yes SNF/HH Preference WARP TIER discusses options and patient endorses preference for nearby SNF with first preference of [facility]. Has Agency SNF been contacted Yes Please Provide Date Initial DC 03/30/22 Assessment Was Performed
[2022-03-30 19:27] VITALS: BP 134/74; PULSE 93; RESP 14; O2SAT 93
[2022-03-30 19:33] LABS: COVID19 -Nasal RAPID Negative (Negative)
[2022-03-30] MEDS: NORTRIPTYLINE HCL 25 MG CAPSULE PO (20:58)
[2022-03-30] MEDS: METOPROLOL ER 50 MG TABLET PO (20:59)
[2022-03-30] MEDS: FERROUS SULFATE 325 MG TABLET PO (20:59)
[2022-03-30 21:15] VITALS: BP 150/77; PULSE 70; RESP 19; O2SAT 96
--- NOTE | 2022-03-30 21:16 | PC.NURSE ---
Bon placed for pt with female GLASS LINED TANK REPAIRER at bedside. Pt also provided with toothbrush, toothpaste, mouthwash, and chapstick per pt request. Pt readjusted in bed for comfort. Call light within reach and pt educated on proper use. VS checked, medications administered per SEP.
[2022-03-31] VITALS (10 sets, daily range): BP systolic 134–184; BP diastolic 65–98; PULSE 80–98; RESP 20; O2SAT 91–99
[2022-03-31] MEDS: CYCLOBENZAPRINE 10 MG TABLET PO ×2 (06:39→18:23)
[2022-03-31] MEDS: HYDROCODONE/ACET 5/325 TABLET 1 TAB PO ×2 (06:39→12:11)
--- NOTE | 2022-03-31 09:42 | PC.NURSE ---
PT in room with patient
--- NOTE | 2022-03-31 10:00 | PT.IIE ---
Medical History (Last Reviewed 03/30/22 @ 20:04 by Sathya Hampton PA-C) Chronic back pain Chronic Sergey lesion (02/16/17) Chronic renal failure, stage 3a Chronic systolic (congestive) heart failure Closed L1 vertebral fracture 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) Essential hypertension Glaucoma (~11/2016) Hiatal hernia (07/03/11) History of duodenal ulcer History of gastrointestinal hemorrhage Idiopathic scoliosis (07/03/11) Osteoporosis 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) Uncomplicated opioid dependence Physical Therapy Inpatient Evaluation/Re-Eval M1 PT/OT-IP Prior Functional Status Start: 03/31/22 10:00 Freq: Status: Active Protocol: Document 03/31/22 10:01 DLM (Rec: 03/31/22 10:25 DL [id number]) Medical Review Prior Functional Status Medical History Reviewed Yes Diet/Fluid Consistency Regular Communication WFL Mobility and Gait ambulates with 4WW most of the time, takes cane when going out in the car since too hard to get 4WW out of the car, she does not walk very far with the cane Activities of Daily Living and IADL's eats meals in dining room, Granddaughter does grocery shopping as needed, independent doing ADL's, has housekeeping assist at [facility] facility Prior Functional Level (Other details) she drives, Lives at [facility] in independent apt, Granddaughter assists her a few days a week Social History Household Members none Living Arrangements [facility] Number of Floors (Floors) One Floor Number of Stairs To Enter/Railing? none Home Environment High Toilet,Walk in Shower Home Equipment Four Wheel Walker,Straight Cane Employment Status Retired Additional Social History Comment [facility] 2018 after L1 comp fx. She has a flat bed at home. She was unable to sleep in bed before this admit due to the severity of her back pain and she was trying to sleep in chairs/couch (no recliner at home). Her baseline chronic back pain before this flare-up is 3/10 pain with medications. M2 PT-IP Current Condition Start: 03/31/22 10:00 Freq: Status: Active Protocol: Document 03/31/22 10:01 DLM (Rec: 03/31/22 10:25 DL [id number]) Physical Therapy Current Condition Current Condition Evaluation Date 03/31/22 Treatment Diagnosis back pain, impaired mobility/ gait Onset Date 03/30/22 M3 PT-IP Subjective Start: 03/31/22 10:00 Freq: Status: Active Protocol: Document 03/31/22 10:01 DL (Rec: 03/31/22 10:25 [facility] [id number]) Subjective Physical Therapy Visit Type Type Initial Evaluation Visit Start Time 09:05 Visit Stop Time 10:00 Total Visit Minutes 55 Number of TEST RACK OPERATOR Visits 0 Physical Therapy Visit Comments Patient Comments Her back pain increased after going to an eye exam and she stretched up on her toes to get head lined up with an optical machine, small twinge in her back at the time that kept getting worse over the next couple of days. Patient Goals decrease her back pain so she can return home to her Apt M4 PT-IP Mobility and Gait Start: 03/31/22 10:00 Freq: Status: Active Protocol: Document 03/31/22 10:01 [facility] (Rec: 03/31/22 10:25 [facility] [id number]) PT-Bed Mobility Assessment Supine to Sit Supine to Sit Minimal Assistance,Head of Bed Elevated Sit to Supine Sit to Supine Moderate Assistance Scooting Scooting to Edge of Bed Standby Assistance Scooting Up and Down in Bed Dependent PT-Transfer Assessment Sit to and From Stand Sit to and from Stand Contact Guard Assistance, Minimal Assistance,Use of Upper Extremities Equipment Transfer Assistive Device Gait Belt,Front Wheeled Walker Transfers Transfer Destination Bedside Commode Transfer Technique Stand Step Pivot Transfer Ability Level of Assist Minimal Assistance Comments Mobility Comments All of her mobility is very slow, intermittent spasms in her back at rest and when moving that make her stop what she is doing to get the pain to decrease. She can not lie flat at this time due to the pain. Back pain is 4/10 at rest, 8/10 with mobility and stays 7-8/10 after mobility. She reports the pain is only in her back and worse on left than right. Gait Assessment Gait Gait Assistance Required: Contact Guard Assist,Minimum Assistance,1 Person Assist Distance (Feet) 25 Assistive Devices Assistive Device Gait Belt,Front Wheeled Walker Gait Deviations General Gait Pattern Decreased Stride Length,Flexed Trunk Factors Limiting Gait Function Factors Limiting Gait Function Decreased Activity Tolerance, Decreased Strength,Pain,Poor Balance Comments Gait Comments Gait is slow with increased support on UE's due to back pain. She reports her back pain is less with gait than sit to stand or getting out of bed. Stair Climbing Assessment Comments Stair Climbing Comments no stairs at her apt PT-Balance Assessment Sitting Balance and Reactions Static Sitting Balance Ability Good Dynamic Sitting Balance Ability Good Standing Balance and Reactions Static Standing Balance Ability Good Dynamic Standing Balance Ability Fair Device Used FWW Comments Other Balance Tests/Deviations/Treatment Back pain limits her balance : reactions and trunk mobility at this time. She needs assist to manage her shoes/socks and underwear during ADL's and toileting. M5 PT-IP Objective Assessments Start: 03/31/22 10:00 Freq: Status: Active Protocol: Document 03/31/22 10:01 DL (Rec: 03/31/22 10:25 [facility] [id number]) Orientation Orientation/Cognition Level of Alertness Alert Orientation Name,Age,Birthday,Month,Date, Year,Day of Week,Place, Situation Language Function Ability No Deficits Noted Safety Awareness Understands Safety Issues Memory Description No Deficits Noted Gross Range of Motion Upper Extremity ROM Assessment Within Functional Limits Lower Extremity ROM Assessment Within Functional Limits Impairments back pain with moving LE's Strength Upper Extremity Strength Assessment Within Functional Limits Lower Extremity Strength Hip limited by pain in back, 3-/5 Knee 4/5 Ankle DF 5/5 Comments Strength Comments back pain is affecting her functional strength throughout , trunk ROM is very limited by pain in all planes Coordination Assessment Gross Coordination Gross Coordination WNL Sensation Assessment Sensation Gross Sensation WNL Comments Sensation Comments she denies numbness/tingling, LE skin is dry without hair and skin is pink Muscle Tone Muscle Tone WNL Yes M6 PT-IP Treatment Start: 03/31/22 10:00 Freq: Status: Active Protocol: Document 03/31/22 10:01 DLM (Rec: 03/31/22 10:25 [facility] [id number]) Physical Therapy Treatment Education Education Provided Safety Other Treatments Other Treatment Performed discussed her discharge concerns and her wishes She has hx of scoliosis and L1 compression fx. M7 PT-IP Assessment and Plan Start: 03/31/22 10:00 Freq: Status: Active Protocol: Document 03/31/22 10:01 DLM (Rec: 03/31/22 10:25 [facility] [id number]) PT Summary Assessment and Plan Potential Rehabilitation Potential Good Status of Condition at Evaluation Evolving Summary Impairments Pain,ROM,Strength,Balance,Bed Mobility,Transfers,Gait, Activity Tolerance Assessment Summary Fadumo is alert and resting in bed. She shows good effort in therapy but her back pain limits all mobility. Her mobility is very slow and she has to stop intermittently to manage her back spasms. As her pain improves I anticipate she will be able to improve her functional strength. Due to the severity of her pain and limited mobility she is not safe to return home alone. She is a good candidate for SNF rehab at this time. Goals Bed Mobility Goal Independent Transfer Goal Independent,Front Wheeled Walker,Four Wheeled Walker Gait Goal Independent,Front Wheel Walker ,Four Wheel Walker Gait Distance 150 feet Days to Meet Goals 7 Frequency of Treatment Frequency Of Treatment Once a Day Treatment Plan Physical Therapy Treatment Plan Bed Mobility Training,Transfer Training,Gait Training, Therapeutic Exercise,Balance Retraining,Discharge Planning, Hot or Cold Pack,Neuromuscular Re-ed Other Recommendations and Next Treatment pain management Focus Precautions Lumbar Precautions Log Roll,No Twisting,Limit Bending,Lifting Restriction of 10 lbs Other Precautions spine precautions to manage her back pain Hx osteoporosis Recommendations To Nursing Amount of Assist Needed 1 Person Assist Discharge Recommendations PT Discharge Recommendations SNF Rehab Transportation Needs at Discharge Wheelchair/Cabulance
--- NOTE | 2022-03-31 11:27 | PC.NURSE ---
OT in room with patient.
--- NOTE | 2022-03-31 11:45 | OT.IP.EVAL ---
Past Medical History (Last Reviewed 03/30/22 @ 20:04 by Sathya Hampton PA-C) Chronic back pain Chronic Sergey lesion (02/16/17) Chronic renal failure, stage 3a Chronic systolic (congestive) heart failure Closed L1 vertebral fracture 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) Essential hypertension Glaucoma (~11/2016) Hiatal hernia (07/03/11) History of duodenal ulcer History of gastrointestinal hemorrhage Idiopathic scoliosis (07/03/11) Osteoporosis 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) Uncomplicated opioid dependence Occupational Therapy Inpatient Evaluation/Re-Eval M1 PT/OT-IP Prior Functional Status Start: 03/31/22 10:00 Freq: Status: Active Protocol: Document 03/31/22 11:25 [facility] (Rec: 03/31/22 12:20 [facility] [id number]) Medical Review Prior Functional Status Medical History Reviewed Yes Diet/Fluid Consistency Regular Communication WFL Mobility and Gait ambulates with 4WW most of the time, takes a cane when going out in the car since too hard to get 4WW out of the car, she does not walk very far with the cane Activities of Daily Living and IADL's Pt just eats dinner in the dining room and does her own breakfast and lunch. Granddaughter does grocery shopping as needed, independent doing ADL's, has housekeeping assist at [facility] facility . Pt washes her own clothes. Prior Functional Level (Other details) she drives, Lives at [facility] in independent apt, Granddaughter assists her a few days a week Social History Household Members none Living Arrangements [facility] Facility Number of Floors (Floors) One Floor Number of Stairs To Enter/Railing? none Home Environment High Toilet,Walk in Shower Home Equipment Four Wheel Walker,Straight Cane Employment Status Retired Additional Social History Comment [facility] 2018 after L1 comp fx. She has a flat bed at home. She was unable to sleep in bed before this admit due to the severity of her back pain and she was trying to sleep in chairs/couch (no recliner at home). Her baseline chronic back pain before this flare-up is 3/10 pain with medications. Pt states having a friend poultry picker a raised toilet set with handles for her. M2 OT-IP Current Condition Start: 03/31/22 11:50 Freq: Status: Active Protocol: Document 03/31/22 11:25 [facility] (Rec: 03/31/22 12:20 [facility] [id number]) Occupational Therapy Current Condition Current Condition Evaluation Date 03/31/22 Treatment Diagnosis Back pain Diagnosis Onset Date 03/30/22 Post Operative Precautions Lumbar Precautions Log Roll,No Twisting,Limit Bending,Lifting Restriction of 10 lbs Other Precautions Pt has multiple compression fractures and therefore best for pt to follow lumbar precautions. M3 OT- IP Subjective and Pain Start: 03/31/22 11:50 Freq: Status: Active Protocol: Document 03/31/22 11:25 [facility] (Rec: 03/31/22 12:20 [facility] [id number]) OT- Subjective Occupational Therapy Visit Type Type Initial Evaluation Visit Start Time 11:25 Visit Stop Time 11:45 Total Visit Minutes 20 Occupational Therapy Visit Comments Patient Comments Pt agreed to do OT eval. Patient/Caregiver Goals To go home. OT Pain Assessment Pain When Pain Assessed At Rest Pain Present Pain Present Pain Reported Location Bilateral Lower Back Intensity 5 Scale Used Numeric (0 - 10) M4 OT- IP ADL's Start: 03/31/22 11:50 Freq: Status: Active Protocol: Document 03/31/22 11:25 [facility] (Rec: 03/31/22 12:20 [facility] [id number]) OT [id number] Comments OT Self-Feeding Comments NO issued anticipated. OT ADL-Grooming Comments OT Grooming Comments Unable to do as in too much pain to be able to get to the sink. OT ADL-Oral Care Comments Oral Care Comments Unable to do as in too much pain to be able to get to the sink. OT ADL-Dressing Comments OT Dressing Comments Pt dependent for socks at this time as in too much pain. Pt would benefit form getting LB dressing equipment needs to help increase her ease and independence especially when in pain. OT ADL-Toileting Comments OT Toileting Comments Not able to perform as in too much pain. OT ADL-Bathing Comments OT Bathing Comments Not able to do at this time as in too much pain. Pt would benefit from a shower chair and use of a long handled brush. M5 OT- IP IADL's Start: 03/31/22 11:50 Freq: Status: Active Protocol: Document 03/31/22 11:25 [facility] (Rec: 03/31/22 12:20 [facility] [id number]) OT-Instrumental Activities of Daily Living Deficits IADL Deficits Identified Deficits Home Safety Awareness Awareness of Need for Assistance at Home Good Awareness Ability to Problem Solve Emergency Able to Problem Solve Situations Medication Management Medication Management No Deficits Identified Money Management Money Management No Deficits Identified Meal Preparation Meal Preparation Caregiver Provides Assist [employer] Counselor [employer] Counselor Caregiver Provides Assist M6 OT- IP Functional Cognition Start: 03/31/22 11:50 Freq: Status: Active Protocol: Document 03/31/22 11:25 [facility] (Rec: 03/31/22 12:20 [facility] [id number]) Cognitive Factors Limiting Selfcare Function Cognitive Ability Level of Alertness Alert Patient Orientation Name,Age,Birthday,Month,Date, Year,Day of Week,Place, Situation Attention Span Ability Capable of Focused Attention, Capable of Sustained Attention Ability to Follow Commands Able to Follow One Step Commands Memory Description No Deficits Noted Problem Solving Ability No deficits Noted Cognitive Comments Cognitive Assessment Comments Pt able to follow commands for OT eval and appears intact cognitively at this time. OT- Vision and Hearing OT- Hearing Assessment OT- Hearing Assessment WFL OT- Vision Assessment Vision History Macular Degeneration Visual Acuity Glasses For Reading Visual Attentiveness WFL Occular Pursuits WFL Visual Convergence WFL M7 OT- IP Mobility and Balance Start: 03/31/22 11:50 Freq: Status: Active Protocol: Document 03/31/22 11:25 [facility] (Rec: 03/31/22 12:20 [facility] [id number]) OT-Transfer Assessment Comments Mobility Comments Pt trying to get out of bed and in too much pain and having back spasms and not able to get out of the bed without having to have assist. Pt states pain increased to 9 /10. Able to notify nursing for pt's request for medications. OT- Balance Assessment Comments Other Balance Tests/Deviations/Treatment Pt in too much pain and not : able to get up at this time. Pt attempted to move her lags to the edge of the bed but having back spasms and not able to complete. M8 OT- IP Objective Assessments Start: 03/31/22 11:50 Freq: Status: Active Protocol: Document 03/31/22 11:25 [facility] (Rec: 03/31/22 12:20 [facility] [id number]) OT-Muscle Tone Assessment Muscle Tone WNL Yes M9 OT- IP Assessment and Plan Start: 03/31/22 11:50 Freq: Status: Active Protocol: Document 03/31/22 11:25 [facility] (Rec: 03/31/22 12:27 [facility] [id number]) OT Summary Assessment and Plan Potential Rehabilitation Potential Excellent Analytic Complexity at Evaluation Low Summary OT Impairments Pain,Balance,Functional Mobility,Grooming,Dressing, Toileting,Bathing,Toilet Transfers,Shower Transfers, Activity Tolerance Progress Towards Goals Slow Progress due to Pain Assessment Summary Pt low complexity and main barriers are pain and now needing assist for all dressing, toileting , bathing, and mobility needs. Prior pt was independent with with all her needs with ADL,IADL and mobility needs. At this time pt will benefit from skilled rehab pending her progress pending medical stability of pain control. Goals Self-Feeding Goal Independent Grooming Goal Independent Dressing Goal Independent Toileting Goal Independent Bathing Goal Independent Toilet Transfer Goal Independent Shower Transfer Goal Independent Days to Meet Goals 7 Frequency of Treatment Frequency Of Treatment Once a Day Treatment Plan OT Treatment Plan ADL Training,Functional Mobility,Patient/Family Education,Discharge Planning Other Treatment Recommendations and Next Standing at the sink for ADL Treatment Focus needs. Discharge Recommendations OT Discharge Recommendations SNF Rehab Home Equipment Needs shower chair Transportation Needs at Discharge Wheelchair/Cabulance
[2022-03-31] MEDS: DOCUSATE 100 MG CAPSULE PO (12:11)
--- NOTE | 2022-03-31 16:44 | CM.DPNOTE ---
DCP Note [facility] endorses that they can review patient as well but need to confirm insurance auth. FORENSIC ACCOUNTANT receives call from Katie at [facility] and it is reported that patient is accepted for tomorrow and will be picked up with [facility] at 10:30 Am on 04/01/22. FORENSIC ACCOUNTANT calls Shira at [facility] to let her know that patient was accepted at another SNF. ED provider Dr. Brown signs med list, and signs hard copy of rx for Morphine. FORENSIC ACCOUNTANT faxes PASSR, discharges summary orders for SNR and signed med list. FORENSIC ACCOUNTANT calls Eslie with [facility] to confirm the above. Plan: Patient to transfer to [facility] tomorrow at 10:30 AM via [facility]. PETROS CampuzanoSW
[2022-03-31] MEDS: GABAPENTIN 600 MG TABLET PO (18:40)
[2022-03-31] MEDS: METOPROLOL ER 50 MG TABLET PO (18:40)
[2022-03-31] MEDS: FERROUS SULFATE 325 MG TABLET PO (18:40)
[2022-03-31] MEDS: PANTOPRAZOLE DR 20 MG TABLET PO (18:41)
[2022-03-31] MEDS: SPIRONOLACTONE 25 MG TABLET PO (18:41)
[2022-03-31] MEDS: HYDROCODONE/ACET 5/325 TABLET 2 TAB PO (19:37)
[2022-04-01] MEDS: CYCLOBENZAPRINE 10 MG TABLET PO ×2 (00:45→06:51)
[2022-04-01 01:15] LABS: Bilirubin Urine UA NEGATIVE (NEGATIVE); Color Urine UA YELLOW; Glucose Urine UA NEGATIVE (Negative); Ketones Urine UA TRACE (NEGATIVE); Leukocyte Esterase Urine UA 2+ (NEGATIVE); Nitrite Urine UA NEGATIVE (Negative); Occult Blood Urine UA 3+ (Negative); Protein Urine UA 2+ (Negative); Specific Gravity Urine UA 1.025 (1.000-1.035); Urobilinogen Urine UA 0.2 E.U./dL (0.2)
[2022-04-01 01:16] LABS: Appearance Urine UA CLOUDY; Bacteria Urine Many (>30); Culture Indicated Urine Specimen Cultured; RBC Urine 30-100/HPF (0-5/HPF); Squamous Epithelial Cell Urine 1-5 /HPF (0-5/HPF); WBC Urine 30-100/HPF (0-5/HPF)
[2022-04-01] MEDS: TRIMETH/SULFA 160/800 (DS) TABLET 1 TAB PO (03:09)
[2022-04-01] MEDS: GABAPENTIN 600 MG TABLET PO (06:50)
[2022-04-01 09:51] VITALS: PULSE 88; O2SAT 91
[2022-04-01 09:53] VITALS: BP 149/79; PULSE 88; O2SAT 91
[2022-04-01 09:56] VITALS: BP 149/79; PULSE 88; RESP 18; O2SAT 91
--- NOTE | 2022-04-01 10:36 | PC.NURSE ---
Called and gave report to Mellisa STEPHEN at [facility]. I left her with the departments phone number if there are any questions that arise after patients arrival.
== END 2022-04-01 10:39 ==
PROVIDERS: Student in an Organized Health Care Education/Training Program; Emergency Provider Emergency Medicine; PCP Internal Medicine
DX: M48.56XA Collapsed vertebra, not elsewhere classified, lumbar region, initial encounter for fracture (principal); N39.0 Urinary tract infection, site not specified; Z20.822 Contact with and (suspected) exposure to COVID-19
CPT/HCPCS: 72125; 72128; 72131; 81001; 87086; 87635; 97162; 99284; C9803

== ENCOUNTER → 2023-06-21 10:57 | Outpatient (CLI) | payer MEDICARE, SELFPAY ==
--- NOTE | 2023-06-21 11:00 | DI.RAD.S_ITS ---
PROCEDURE: XR LUMBAR SPINE MIN 4V INDICATIONS: BACK PAIN TECHNIQUE: 5 views of the lumbar spine were acquired, including bilateral oblique views. COMPARISON: [facility], , XR LUMBAR SPINE 2-3V, 01/03/2022, 19:09. FINDINGS: Bones: 5 nonrib-bearing vertebrae are present. Severe osteopenia and body habitus markedly limit evaluation of the lumbar spine with nearly nondiagnostic images. Within these limitations no definite fracture on the AP view. Alignment is similar to the prior with levoconvex curvature and multilevel degenerative changes. Soft tissues: Overlying bowel gas pattern is normal. No suspicious soft tissue calcifications. Calcification of the abdominal aorta. Oblique images: No pars defects. IMPRESSION: 1. Severe osteopenia and body habitus markedly limit evaluation of the lumbar spine with essentially nondiagnostic images. Within these limitations no definite fracture on the AP view. Recommend a CT or MRI for further evaluation. 2. Alignment is similar to the prior with levoconvex curvature and multilevel degenerative changes. Dictated by: Melia Griggs M.D. on 06/21/2023 at 13:04 Approved by: Melia Griggs M.D. on 06/21/2023 at 13:09
[2023-06-21 13:01] LABS: Add Manual Diff / Slide Review NO; Basophils Absolute Auto 0 /uL (0-100); Basophils Percent Auto 0.4 % (0-2); Eosinophils Absolute Auto 100 /uL (0-450); Hematocrit 39.7 % (36-46); Hemoglobin 12.6 g/dL (12.0-16.0); Lymphocytes Absolute Auto 1000 /uL (1100-4500); Mean Corpuscular HGB Conc 31.8 % (30-36); Mean Corpuscular Hemoglobin 30.7 PG (26-34); Mean Corpuscular Volume 96.7 fL (80-100); Monocytes Absolute Auto 500 /uL (0-900); Monocytes Percent Auto 9.1 % (3-14); Neutrophils Absolute Auto 3900 /uL (1500-7000); Neutrophils Percent Auto 70.5 % (50-75); Platelet Count 216 X10^3/uL (150-400); Red Blood Cell Count 4.11 X10^6/uL (4.0-5.2); Red Cell Distribution Width 13.8 % (11.6-14.8); White Blood Cell Count 5.5 X10^3/uL (4.5-11.0)
[2023-06-21 13:18] LABS: HEMOLYSIS < 15 (0-50); Iron 74 ug/dL (37-170)
[2023-06-21 13:23] LABS: Alanine Aminotransferase 15 IU/L (<35); Albumin 3.8 g/dL (3.5-5.0); Albumin Globulin Ratio 1.1 (1.0-2.8); Alkaline Phosphatase 56 U/L (38-126); Aspartate Aminotransferase 21 IU/L (14-36); BUN Creatinine Ratio 31.6 (6-22); Bilirubin Total 0.5 mg/dL (0.2-1.3); Blood Urea Nitrogen 25 mg/dL (7-17); Calcium 9.4 mg/dL (8.4-10.2); Carbon Dioxide 33 mmol/L (22-32); Chloride 102 mmol/L (98-107); Estimated Glomerular Filt Rate > 60 mL/min (>60); Globulin 3.5 g/dL (1.7-4.1); Glucose 96 mg/dL (80-110); HEMOLYSIS < 15 (0-50); Potassium 4.7 mmol/L (3.4-5.1); Sodium 139 mmol/L (137-145); Total Protein 7.3 g/dL (6.3-8.2)
[2023-06-21 13:29] LABS: Percent Iron Saturation 26 % (15-50); Total Iron Binding Capacity 284 ug/dL (265-497); Transferrin 245 mg/dL (206-381)
[2023-06-21 13:30] LABS: NT-proBNP (BNP-Adult 18+) 1160 pg/mL (<450)
== END ==
LOC: LAB 10:58
PROVIDERS: PCP Internal Medicine; Referring Provider Anesthesiology; Visit Provider Internal Medicine
DX: M54.9 Dorsalgia, unspecified (principal); F11.20 Opioid dependence, uncomplicated; I50.22 Chronic systolic (congestive) heart failure; G89.29 Other chronic pain; N18.31 Chronic kidney disease, stage 3a; K25.7 Chronic gastric ulcer without hemorrhage or perforation
CPT/HCPCS: 36415; 72110; 80053; 83540; 83550; 83880; 85025

== ENCOUNTER → 2023-07-14 13:12 | Outpatient (CLI) | payer MEDICARE, SELFPAY ==
--- NOTE | 2023-07-14 13:13 | DI.MRI.S_ITS ---
PROCEDURE: MR CERVICAL SPINE WO CON INDICATIONS: Chronic neck pain, spondylosis TECHNIQUE: Noncontrast sagittal T1 spin echo and T2 fast spin echo, sagittal STIR, foraminal oblique sagittal T2 fast spin echo, and axial gradient echo or T2 fast spin echo through the cervical spine. COMPARISON: None. FINDINGS: Image quality: Due to patient kyphosis, the normally used coil could not be used. Images are limited with poor resolution. Alignment and Curvature: There is normal bony alignment. Bone Marrow: Marrow demonstrates normal overall signal. Spinal Cord: Visualized spinal cord has normal size and signal. No cerebellar tonsillar herniation. Paraspinous Soft Tissues: No paravertebral masses. Prevertebral soft tissues are normal in thickness. C2-C3: Diffuse disc bulge. The foramina and central canal are patent. C3-C4: Diffuse disc bulge. The foramina are not well visualized. The central canal has mild stenosis. C4-C5: Diffuse disc bulge. The foramina are not well visualized. The central canal has mild stenosis. C5-C6: Diffuse disc bulge. The foramina are not well visualized. The central canal has mild stenosis. C6-C7: Diffuse disc bulge. The foramina are not well visualized. The central canal has mild stenosis. C7-T1: No significant disc bulge. The foramina and central canal are patent. IMPRESSION: Limited study due to inability to utilize the normal coil due to patient kyphosis. Evaluation of the foramina is nondiagnostic. The central canal is adequately visualized and demonstrates mild stenosis from C3-4 through C6-7. Dictated by: Kingsley Barcenas M.D. on 07/14/2023 at 15:48 Approved by: Kingsley Barcenas M.D. on 07/14/2023 at 15:54
--- NOTE | 2023-07-14 13:13 | DI.MRI.S_ITS ---
PROCEDURE: MR LUMBAR SPINE WO CON INDICATIONS: Chronic low back pain, compression fractures TECHNIQUE: Noncontrast sagittal T1 spin echo and T2 fast echo, sagittal STIR, and T2 fast spin echo through the lumbar spine. In cases with scoliosis, additional coronal T2 fast spin echo may be performed. There is central and posterior height loss of L5 and uniform height loss of T11 and T12 consistent with remote compression fractures. COMPARISON: None. FINDINGS: Image quality: Excellent. Alignment and Curvature: There is normal bony alignment. Bone Marrow: Marrow is of normal overall signal. No acute vertebral body compression fractures. Spinal Cord: Conus medullaris terminates at the L1 level. Visualized cord demonstrates normal signal and size. Paraspinous Soft Tissues: Severe fatty atrophy of the paraspinal muscles. Severe levoscoliosis of the lumbar spine with a Rainey angle of 55?. T12-L1: No significant disc bulge. The foramina and central canal are patent. L1-L2: No significant disc bulge. The foramina and central canal are patent. L2-L3: Disc space narrowing. No significant disc bulge. The foramina and central canal are patent. L3-L4: Disc space narrowing. No significant disc bulge. The foramina and central canal are patent. L4-L5: No significant disc bulge. The foramina and central canal are patent. L5-S1: No significant disc bulge. The foramina and central canal are patent. IMPRESSION: 1. Severe levoscoliosis of the thoracolumbar spine. 2. The central canal and foramina appear patent. 3. No acute compression fracture. Dictated by: Kingsley Barcenas M.D. on 07/14/2023 at 15:59 Approved by: Kingsley Barcenas M.D. on 07/14/2023 at 16:08
== END ==
PROVIDERS: PCP Internal Medicine; Referring Provider Anesthesiology; Visit Provider Anesthesiology
DX: M47.812 Spondylosis without myelopathy or radiculopathy, cervical region (principal); M48.02 Spinal stenosis, cervical region; M40.209 Unspecified kyphosis, site unspecified; S32.019A Unspecified fracture of first lumbar vertebra, initial encounter for closed fracture; M41.9 Scoliosis, unspecified; M54.2 Cervicalgia; M54.9 Dorsalgia, unspecified; G89.29 Other chronic pain
CPT/HCPCS: 72141; 72148

== ENCOUNTER → 2023-08-16 10:42 | Outpatient (CLI) | payer MEDICARE, SELFPAY ==
--- NOTE | 2023-08-16 10:43 | DI.RAD.S_ITS ---
PROCEDURE: XR CERVICAL SPINE 4V OR 5V INDICATIONS: Chronic neck pain, spondylosis TECHNIQUE: 5 views of the cervical spine acquired. COMPARISON: None. FINDINGS: Bones: Severe diffuse DJD, osteopenia and marked thickenss of overlying soft tissues limit evaluation. Vertebra below C4 are not well visualized on lateral view due to overlying soft tissues. No acute fracture or subluxation is identified. Severe diffuse DJD of the C-spine is noted with probable spondylolisthesis of the midcervical spine although this is not well discerned due to limitations of the study. Soft tissues: No prevertebral soft tissue swelling. IMPRESSION: Limited study showing severe DJD of the C-spine Dictated by: Pascual Hewitt M.D. on 08/16/2023 at 14:53 Approved by: Pascual Hewitt M.D. on 08/16/2023 at 14:56
== END ==
LOC: RAD 10:43
PROVIDERS: PCP Internal Medicine; Referring Provider Anesthesiology; Visit Provider Anesthesiology
DX: M47.812 Spondylosis without myelopathy or radiculopathy, cervical region (principal); M54.2 Cervicalgia; G89.29 Other chronic pain
CPT/HCPCS: 72050

== ENCOUNTER 2023-10-13 13:39 | Outpatient (CLI) | payer MEDICARE, SELFPAY ==
[2023-10-13] VITALS (7 sets, daily range): BP systolic 137–216; BP diastolic 78–101; PULSE 72–94; RESP 13–22; TEMP 37.1; O2SAT 90–97
[2023-10-13] MEDS: MIDAZOLAM 2 MG/2 ML VIAL 0.5 MG IV (14:23)
[2023-10-13] MEDS: BUPIVACAINE 0.5% (PF) 10 ML VIAL 5 ML INJ (14:27)
[2023-10-13] MEDS: iopamidoL 15 ML VIAL 3 ML INJ (14:27)
--- NOTE | 2023-10-13 14:30 | DI.RAD.S_ITS ---
PROCEDURE: PAIN L/S FACET INJ/BLK 1ST PRERNA INDICATIONS: SPONDYLOSIS COMPARISON: None. FINDINGS: Fluoroscopic spot filming was performed to verify placement of spinal needles at the L3 through level(s), as labeled on the films. Appropriate location(s) of the needle tip(s) was confirmed by injection of iodinated contrast. IMPRESSION: L3 through L5 needle and contrast placement. Dictated by: Beth Rose M.D. on 10/13/2023 at 20:27 Approved by: Beth Rose M.D. on 10/13/2023 at 20:27
--- NOTE | 2023-10-13 15:43 | P.PCN_ITS ---
Date/Time/Diagnoses Date of procedure: 10/13/23 Time of procedure: 14:30 Procedure Notes Physician: Felipe Gonzalez Total Fluoroscopy time (seconds): 26 Total sedation minutes: 15 Procedure in detail & Post-procedure care: Bilateral L3, 4, 5 Lumbar Medial Branch Blocks Indications: Fadumo is presenting for treatment of lumbar spondylosis with low back pain. Preoperative diagnosis: Lumbar spondylosis Postoperative diagnosis: Same Pre-procedure History: Patient demonstrates today moderate to severe non- radicular back pain without neurologic deficit aggravated by hyperextension yes Back pain greater than leg pain? yes Patient today has tenderness over the suspected joint(s) yes History of post-traumatic injury? no Hypertrophic arthropathy yes Back pain associated with suspected motion segment instability, hypermobility or pseudoarthrosis no Focused Examination: Ax3 Mood and affect are normal Vital Signs: VSS ASA: 3 Consent: Following review of allergies and potential side effects/complications, including, but not necessarily limited to, infection, allergic reaction, local tissue breakdown, stroke, temporary or permanent nerve injury, paralysis, and possible , the patient indicated that they understood and agreed to proceed.? An informed consent document was signed by the patient, witnessed by a nurse and placed in the patient's chart.? Additionally, other treatment options including medications and physical therapy were reviewed with the patient. All questions were answered. Site was then marked. Anesthesia: After review of previous anesthetic history and IV conscious sedation, the patient was deemed safe to proceed with today's procedure with IV conscious sedation. IV sedation was accomplished with midazolam 0.5 mg administered by the RN after order by Dr. Gonzalez. Sedation was titrated to patient comfort during the course of the procedure. Patient remained responsive to all verbal commands. Position: Prone Monitoring: NIBP, Pulse oximetry, 3 lead EKG Needle used: 22 ga 3.5 inch spinal needle Contrast: Isovue 300M Injectate: 0.5% bupivacaine 1 mL per site Procedure: The patient was brought into the procedure room and positioned into the prone position. Skin was prepped with a Chloraprep solution, allowed to air dry, and then draped in sterile fashion.? The right L4-5 and L5-S1 facet joints were visually identified with fluoroscopy. Lidocaine 1% was used to anesthetize the skin over each target destination with a 25ga needle. A 22 ga, 3.5 inch spinal needle was advanced to the location of the medial branch at the junction of the superior articular process and the transverse process at L4,5 and the base of the SAP of the sacrum using intermittent fluoroscopy in the AP view. Isovue 300M contrast 0.2ml was injected at each level outlining the medial borders for each level and the base of the SAP of the sacrum in the AP and lateral views. There was no evidence of vascular or intrathecal uptake. The above injectate was slowly injected at each target destination. The left L4-5 and L5-S1 facet joints were visually identified with fluoroscopy. Lidocaine 1% was used to anesthetize the skin over each target destination with a 25ga needle. A 22 ga, 3.5 inch spinal needle was advanced to the location of the medial branch at the junction of the superior articular process and the transverse process at L4,5 and the base of the SAP of the sacrum using intermittent fluoroscopy in the AP view. Isovue 300M contrast 0.2ml was injected at each level outlining the medial borders for each level and the base of the SAP of the sacrum in the AP and lateral views. There was no evidence of vascular or intrathecal uptake. The above injectate was slowly injected at each target destination. At the end of the procedure the needles were withdrawn and Band- Aids were applied for a dressing. Post Procedure: Patient was taken to the recovery and monitored. The patient was provided a Pain Log to continue to record the patient's response to the target- specific procedure prior to the patient's follow-up visit with the referring physician. Patient was stable upon discharge. Detailed post procedure instructions were provided. Patient was asked to call in the event of worsening pain, fever, weakness, numbness or bladder or bowel incontinence. Based on the medial branches blocked today, if the patient meets insurance criteria for radiofrequency, the treatment should result in the denervation of the bilateral L4-5 and L5-S1 facet joint nerves. We would expect to denervate a total of 4 facets during the radiofrequency ablation.
== END 2023-10-13 15:10 | disposition home or self-care (01) ==
LOC: RAD 13:39
PROVIDERS: PCP Internal Medicine; Referring Provider Anesthesiology; Visit Provider Anesthesiology
DX: M47.816 Spondylosis without myelopathy or radiculopathy, lumbar region (principal)
CPT/HCPCS: 64493; 64494; 99152; J2250

== ENCOUNTER 2023-11-20 11:03 | Inpatient (IN) | payer MEDICARE, SELFPAY ==
[2023-11-20] VITALS (40 sets, daily range): BP systolic 125–196; BP diastolic 62–128; PULSE 62–95; RESP 16–40; TEMP 35.9–36.8; O2SAT 85–96; BMI 25.7
--- NOTE | 2023-11-20 11:11 | DI.RAD.S_ITS ---
PROCEDURE: XR CHEST 1V INDICATIONS: Short of breath TECHNIQUE: One view of the chest was acquired. COMPARISON: [facility], CT, CT ANGIO CHEST PE, 04/06/2022, 21:50. [facility], CR, XR CHEST 2V, 08/30/2018, 17:15. FINDINGS: Surgical changes and devices: Left upper quadrant clips are seen. Lungs and pleura: On this semiupright portable chest examination, no large pneumothorax is seen. There is blunting of the left costophrenic angle. No focal infiltrates are seen. Low lung volumes are noted. This causes a crowded appearance to the lung markings and limits evaluation. Generalized interstitial prominence can be seen. Mediastinum: Mediastinal contours appear normal. Heart size is moderately enlarged. There is a large hiatal hernia present, which is better demonstrated on prior imaging. Bones and chest wall: No suspicious bony lesions. Mild dextroconvex scoliotic curvature is seen. Age-appropriate bony degenerative changes are seen. Overlying soft tissues appear unremarkable. IMPRESSION: Cardiomegaly with interstitial prominence and a likely small left-sided pleural effusion. CHF is suspected. Postoperative and degenerative changes are seen. Dictated by: Jeffry Padilla M.D. on 11/20/2023 at 10:39 Approved by: Jeffry Padilla M.D. on 11/20/2023 at 10:41
--- NOTE | 2023-11-20 11:29 | ED_ITS ---
HPI - General Adult General Chief complaint: Shortness of Breath/Dyspnea Stated complaint: sob Time Seen by Provider: 11/20/23 11:09 Source: patient and family Mode of arrival: Wheelchair History of Present Illness HPI narrative: Patient is an 83-year-old female. History of heart failure. Is seen by Cardiology. Is here for evaluation of 4-5 days of progressively worsening shortness of breath with the cough. No objective fevers but is having body aches. No abdominal pain. No chest pain. She does not feel like she was retaining fluid. No lower extremity swelling. No recent travel. No abdominal pain, nausea, vomiting, sore throat, headache, urinary symptoms or change in bowel habits Related Data Home Medications Medication Instructions Recorded Confirmed vitamin E 268 mg (400 unit) capsule 400 unit PO DAILY ##0 07/08/11 11/11/23 ferrous sulfate 325 mg (65 mg 325 mg PO DAILY 10/13/18 11/11/23 iron) tablet (Iron (ferrous sulfate)) sacubitril 24 mg-valsartan 26 mg 1 tab PO BID 11/10/18 11/11/23 tablet (Entresto) Previous Rx's Medication Instructions Recorded Disabled Parking Permit #1 ea 10/21/18 alendronate 70 mg tablet (Fosamax) 70 mg PO QWEEK #12 tabs 08/10/22 metoprolol succinate 50 mg 50 mg PO BID #180 tabs 02/22/23 tablet,extended release 24 hr gabapentin 600 mg tablet 600 mg PO TID #270 tabs 06/07/23 (Neurontin) omeprazole 40 mg capsule,delayed 40 mg PO QDAY #90 caps 08/17/23 release hydrocodone 5 mg-acetaminophen 325 1 tab PO Q4H PRN pain #90 tabs 09/13/23 mg tablet hydrocodone 5 mg-acetaminophen 325 1 tab PO Q4H PRN pain #90 tabs 09/13/23 mg tablet hydrocodone 5 mg-acetaminophen 325 1 tab PO Q4H pain #90 tabs 09/13/23 mg tablet gabapentin 300 mg capsule 300 mg PO BEDTIME #30 caps 11/11/23 Allergies Allergy/AdvReac Type Severity Reaction Status Date / Time duloxetine AdvReac Intermediate Drowsy Verified 11/11/23 15:19 morphine AdvReac Intermediate mental Verified 11/11/23 15:19 status changes Review of Systems Review of Systems Narrative: See HPI Patient History Medical History Myofascial pain Lumbar spondylosis Closed L1 vertebral fracture Cervical spondylosis Chronic neck pain Uncomplicated opioid dependence Chronic renal failure, stage 3a Chronic systolic (congestive) heart failure Glaucoma (~11/2016) Osteoporosis 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) History of duodenal ulcer History of gastrointestinal hemorrhage Essential hypertension Idiopathic scoliosis (07/03/11) Hiatal hernia (07/03/11) Chronic back pain Status post nephrectomy Social History marital status: number of children: 2 household members: none lives independently: Yes caregiver/support person: Yes housing: house pets and animals: Yes education level: college (3 years) occupational status: other (Retired) 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 travel history: other ([place]) leisure activities: reading and other (Meetings, Trips with granddaughter, knit, cooks.) Smoking Status: Former smoker Tobacco: How many years used: 8 Smokeless tobacco user: other (Cigarettes) quit status: quit date established (1956) second hand exposure: No alcohol intake: current substance use type: does not use Smoking Status: Former smoker alcohol intake frequency: holidays/special occasions only Substance Use Type: does not use Exam Initial Vital Signs Initial Vital Signs: Vital Signs Pulse Rate 95 H 11/20/23 11:13 Pulse Oximetry 85 L 11/20/23 11:13 Oxygen Delivery Method Room Air 11/20/23 11:13 HENMT Head: normal to inspection and normocephalic Resp Effort & Inspection: no cough, not labored and tachypneic Auscultation: clear to auscultation bilaterally Cardio Rate: regular rate Rhythm: regular rhythm Neuro General: patient alert, patient awake, patient oriented x3 and moves all extremities Extrem General: No edema Course Orders Ordered: ED Orders 11/20/23 11:11 XR chest 1V Stat 11/20/23 11:18 Respiratory Panel (Film Array) Stat 11/20/23 11:23 EKG-12 Lead Stat 11/20/23 11:32 Complete Blood Count AUTO DIFF Stat Comprehensive Metabolic Panel Stat Lactate (Lactic Acid) Stat Lipase Stat NT-proBNP (BNP-Adult 18+) Stat Procalcitonin Stat Troponin & CK Cardiac Panel Stat 11/20/23 12:56 Consult to Physician Stat Consult to Physician Stat Sodium Chloride (Sodium Chloride 0.9% Flush) 10 ml IV BID JOSE Last Admin: 11/20/23 11:47 Dose: 10 ml Documented By: GAGE Sodium Chloride (Sodium Chloride 0.9% Flush) 10 ml IV PRN PRN PRN Reason: Flush Discontinued Medications Furosemide 60 mg/ Sodium (Chloride) 56 mls @ 112 mls/hr IV NOW ONE Stop: 11/20/23 12:35 Last Admin: 11/20/23 12:57 Dose: 112 mls/hr Documented By: GAGE Vital Signs Vital signs: Vital Signs - 8 hr 11/20/23 11:13 11/20/23 11:14 11/20/23 11:14 Temperature Pulse Rate 95 H 78 Respiratory Rate 31 H Blood Pressure 195/128 H Pulse Oximetry 85 L 86 L Oxygen Delivery Method Room Air Room Air Oxygen Flow Rate 11/20/23 11:15 11/20/23 11:16 11/20/23 11:20 Temperature 98.2 F Pulse Rate 84 92 H 77 Respiratory Rate 26 H 28 H 24 Blood Pressure 195/128 H Pulse Oximetry 92 88 L 95 Oxygen Delivery Method Nasal Cannula Room Air Nasal Cannula Oxygen Flow Rate 3 3 11/20/23 11:25 11/20/23 11:30 11/20/23 11:35 Temperature Pulse Rate 70 73 69 Respiratory Rate 38 H 38 H 36 H Blood Pressure Pulse Oximetry 96 94 95 Oxygen Delivery Method Nasal Cannula Nasal Cannula Nasal Cannula Oxygen Flow Rate 3 3 3 11/20/23 11:37 11/20/23 11:37 11/20/23 11:40 Temperature Pulse Rate 71 72 Respiratory Rate 29 H 39 H Blood Pressure 178/99 H Pulse Oximetry 93 94 Oxygen Delivery Method Nasal Cannula Oxygen Flow Rate 3 3 11/20/23 11:45 11/20/23 11:50 11/20/23 11:55 Temperature Pulse Rate 69 62 69 Respiratory Rate 31 H 28 H 27 H Blood Pressure Pulse Oximetry 92 90 L 91 Oxygen Delivery Method Oxygen Flow Rate 3 3 11/20/23 12:04 11/20/23 12:05 11/20/23 12:05 Temperature Pulse Rate 80 88 Respiratory Rate 27 H 40 H Blood Pressure 189/91 H Pulse Oximetry 92 92 Oxygen Delivery Method Nasal Cannula Oxygen Flow Rate 3 11/20/23 12:07 11/20/23 12:07 11/20/23 12:10 Temperature Pulse Rate 85 69 Respiratory Rate 32 H 28 H Blood Pressure 184/92 H Pulse Oximetry 95 96 Oxygen Delivery Method Oxygen Flow Rate Medical Decision Making Lab Data 11/20/23 11:32 11/20/23 11:32 Labs: Lab Results 11/20/23 11/20/23 Range/Units 11:18 11:32 WBC 5.0 (4.5-11.0) X10^3/uL RBC 4.30 (4.0-5.2) X10^6/uL Hgb 13.3 (12.0-16.0) g/dL Hct 41.5 (36-46) % MCV 96.5 (80-100) fL MCH 30.8 (26-34) PG MCHC 31.9 (30-36) % RDW 14.6 (11.6-14.8) % Plt Count 232 (150-400) X10^3/uL Neut % (Auto) 75.9 H (50-75) % Lymph % (Auto) 14.6 L (25-40) % [place] % (Auto) 7.7 (3-14) % Eos % (Auto) 1.1 L (2-4) % Baso % (Auto) 0.7 (0-2) % Neut # (Auto) 3800 (2472-4729) /uL Lymph # (Auto) 700 L (4729-0507) /uL [place] # (Auto) 400 (0-900) /uL Eos # (Auto) 100 (0-450) /uL Baso # (Auto) 0 (0-100) /uL Sodium 136 L (137-145) mmol/L Potassium 4.2 (3.4-5.1) mmol/L Chloride 100 (98-107) mmol/L Carbon Dioxide 31 (22-32) mmol/L BUN 16 (7-17) mg/dL Creatinine 0.65 (0.52-1.04) mg/dL Estimated GFR > 60 (>60) mL/min BUN/Creatinine Ratio 24.6 H (6-22) Glucose 104 (80-110) mg/dL Lactate 1.0 (0.7-2.1) mmol/L Calcium 9.3 (8.4-10.2) mg/dL Total Bilirubin 0.9 (0.2-1.3) mg/dL AST 19 (14-36) IU/L ALT 21 (<35) IU/L Alkaline Phosphatase 76 (38-126) U/L Total Creatine Kinase 29 L (30-135) U/L Troponin I < 0.012 (0.01-0.034) ng/mL NT-Pro-B Natriuret Pep 8970 H (<450) pg/mL Total Protein 7.5 (6.3-8.2) g/dL Albumin 4.1 (3.5-5.0) g/dL Globulin 3.4 (1.7-4.1) g/dL Albumin/Globulin Ratio 1.2 (1.0-2.8) Lipase 37 (23-300) U/L Procalcitonin < 0.03 (<0.5) ng/mL Chlamy pneumoniae PCR Not detected (Not Detect) Adenovirus (PCR) Not detected (Not Detect) B.parapertussis DNA PCR Not detected (Not Detecte) Coronavirus OC43 (PCR) Not detected (Not Detect) Coronavirus HKU1 (PCR) Not detected (Not Detect) Coronavirus 229E (PCR) Not detected (Not Detect) SARS-CoV-2 (PCR) Not detected (Not Detecte) Coronavirus NL63 (PCR) Not detected (Not Detect) Human Metapneumovir PCR Not detected (Not Detect) Influenza Type A (PCR) Not detected (Not Detect) Influenza Type B (PCR) Not detected (Not Detect) M. pneumoniae (PCR) Not detected (Not Detect) Parainfluenza 1 (PCR) Not detected (Not Detect) Parainfluenza 2 (PCR) Not detected (Not Detect) Parainfluenza 3 (PCR) Not detected (Not Detect) Parainfluenza 4 (PCR) Not detected (Not Detect) RSV (PCR) Not detected (Not Detect) Entero/Rhino (PCR) Not detected (Not Detect) Imaging Data Chest x-ray: Radiologist's Impression: PROCEDURE: XR CHEST 1V INDICATIONS: Short of breath TECHNIQUE: One view of the chest was acquired. COMPARISON: [facility], CT, CT ANGIO CHEST PE, 04/06/2022, 21:50. [facility], CR, XR CHEST 2V, 08/30/2018, 17:15. FINDINGS: Surgical changes and devices: Left upper quadrant clips are seen. Lungs and pleura: On this semiupright portable chest examination, no large pneumothorax is seen. There is blunting of the left costophrenic angle. No focal infiltrates are seen. Low lung volumes are noted. This causes a crowded appearance to the lung markings and limits evaluation. Generalized interstitial prominence can be seen. Mediastinum: Mediastinal contours appear normal. Heart size is moderately enlarged. There is a large hiatal hernia present, which is better demonstrated on prior imaging. Bones and chest wall: No suspicious bony lesions. Mild dextroconvex scoliotic curvature is seen. Age-appropriate bony degenerative changes are seen. Overlying soft tissues appear unremarkable. IMPRESSION: Cardiomegaly with interstitial prominence and a likely small left-sided pleural effusion. CHF is suspected. Postoperative and degenerative changes are seen. ECG Data Attestation: I personally reviewed and interpreted this ECG as follows: Interpretation: Sinus rhythm Ventricular rate is 78 Left axis deviation Left bundle-branch block No ST T wave changes MDM Narrative Medical decision making narrative: Chest x-ray shows pulmonary edema but no specific consolidation that would be concerning for pneumonia. She was afebrile. No leukocytosis. Procalcitonin is negative. Her BNP is elevated. Given her history of heart failure and the pulmonary edema on the chest x-ray and elevated BNP suspect that her shortness of breath and hypoxia is related to fluid overload. We will hold on any antibiotics for now. She was given Lasix. She does not take Lasix at home. Oxygen saturations greater than 90% on 2-3 L by nasal cannula. Patient states she feels better with the nasal cannula in place. She denies chest pain. Troponin is negative. I did see an echocardiogram from 2019. Unsure if there was 1 since then. It did have an ejection fraction of greater than 60 at that point. Given the need for oxygen patient does require admission to the hospital. Discussed the case with who was on-call for the patient's primary doctor who will admit. Discussed the need for admission with the patient. She expressed understanding and agreement as well. Discharge Plan Departure Patient Disposition: Admitted As Inpatient Clinical Impression: Pulmonary edema, Hypoxia Admit Date/Time: 11/20/23 12:56 Admit Provider: Mariya Collins
[2023-11-20 11:42] LABS: Add Manual Diff / Slide Review NO; Basophils Absolute Auto 0 /uL (0-100); Basophils Percent Auto 0.7 % (0-2); Eosinophils Absolute Auto 100 /uL (0-450); Eosinophils Percent Auto 1.1 % (2-4); Hematocrit 41.5 % (36-46); Hemoglobin 13.3 g/dL (12.0-16.0); Lymphocytes Absolute Auto 700 /uL (1100-4500); Lymphocytes Percent Auto 14.6 % (25-40); Mean Corpuscular HGB Conc 31.9 % (30-36); Mean Corpuscular Hemoglobin 30.8 PG (26-34); Mean Corpuscular Volume 96.5 fL (80-100); Monocytes Absolute Auto 400 /uL (0-900); Monocytes Percent Auto 7.7 % (3-14); Neutrophils Absolute Auto 3800 /uL (1500-7000); Neutrophils Percent Auto 75.9 % (50-75); Platelet Count 232 X10^3/uL (150-400); Red Cell Distribution Width 14.6 % (11.6-14.8)
[2023-11-20] MEDS: SODIUM CHLORIDE 0.9% FLUSH 10 ML IV ×3 (11:47→21:14)
[2023-11-20 11:52] LABS: Alanine Aminotransferase 21 IU/L (<35); Albumin 4.1 g/dL (3.5-5.0); Albumin Globulin Ratio 1.2 (1.0-2.8); Alkaline Phosphatase 76 U/L (38-126); Aspartate Aminotransferase 19 IU/L (14-36); BUN Creatinine Ratio 24.6 (6-22); Bilirubin Total 0.9 mg/dL (0.2-1.3); Blood Urea Nitrogen 16 mg/dL (7-17); Calcium 9.3 mg/dL (8.4-10.2); Carbon Dioxide 31 mmol/L (22-32); Chloride 100 mmol/L (98-107); Creatine Kinase 29 U/L (30-135); Estimated Glomerular Filt Rate > 60 mL/min (>60); Globulin 3.4 g/dL (1.7-4.1); Glucose 104 mg/dL (80-110); HEMOLYSIS < 15 (0-50); Lipase 37 U/L (23-300); Potassium 4.2 mmol/L (3.4-5.1); Sodium 136 mmol/L (137-145); Total Protein 7.5 g/dL (6.3-8.2)
[2023-11-20 12:04] LABS: NT-proBNP (BNP-Adult 18+) 8970 pg/mL (<450); Troponin I < 0.012 ng/mL (0.01-0.034)
[2023-11-20 12:10] LABS: Procalcitonin < 0.03 ng/mL (<0.5)
[2023-11-20 12:32] LABS: Adenovirus Not Detected (Not Detect); B. parapertussis Not Detected (Not Detecte); Bordetella pertussis Not Detected (Not Detect); Chlamydophila pneumoniae Not Detected (Not Detect); Coronavirus 229E Not Detected (Not Detect); Coronavirus HKU1 Not Detected (Not Detect); Coronavirus NL 63 Not Detected (Not Detect); Coronavirus OC43 Not Detected (Not Detect); Human Metapneumovirus Not Detected (Not Detect); Human Rhinovirus/Enterovirus Not Detected (Not Detect); Influenza A Not Detected (Not Detect); Influenza B Not Detected (Not Detect); Mycoplasma pneumoniae Not Detected (Not Detect); Parainfluenza Virus 1 Not Detected (Not Detect); Parainfluenza Virus 2 Not Detected (Not Detect); Parainfluenza Virus 3 Not Detected (Not Detect); Parainfluenza Virus 4 Not Detected (Not Detect); Respiratory Syncytial Virus Not Detected (Not Detect); SARS- CoV-2 Not Detected (Not Detecte)
[2023-11-20] MEDS: FUROSEMIDE 60 MG in SODIUM CHLORIDE 0.9% 50 ML 112 MG IV (12:57)
--- NOTE | 2023-11-20 16:24 | DI.ECHO.S_ITS ---
[facility] : : [address] : : [place] : : [id number] : : Phone: [phone] Echocardiogram Report + + :Name: MICHELLE HAIDER Study Date: 11/21/2023 Height: 65 in : :[facility] ReadingLocation: Weight: 155 lb : : Gender: Female BSA: 1.8 m2 : :: 1940 Age: 83 yrs BP: 139/63 mmHg: :Reason For Study: CONGESTIVE HEART FAILURE : :Ordering Physician: HARSHAL, : :MARIALUISA Performed By: Armando Melton : :Referring: MARIALUISA CAPUTO : + + Interpretation Summary The study quality was technically difficult. There is mild concentric left ventricular hypertrophy. The ejection fraction is estimated to be 45-50%. Grade II diastolic dysfunction. The left atrium is moderately dilated. The right ventricle is moderately dilated. Right ventricular systolic function is mildly reduced. The right atrium is mild to moderately dilated. There is moderate tricuspid regurgitation. Right ventricular systolic pressure is estimated to be 59 mmHg plus the clinically estimated CVP which cannot be estimated on this exam. Compared to the prior study dated 09/12/2018, the LVEF has increased. Procedure: A two-dimensional transthoracic echocardiogram with color flow and Doppler was performed. Comparison is made with the echocardiogram of 09/12/2018. The study quality was technically difficult. The heart rate ranged between 58-93 bpm during the study. Left Ventricle: The left ventricle is normal in size. There is mild concentric left ventricular hypertrophy. The ejection fraction is estimated to be 45-50%. Diastolic parameters suggest a pseudonormalization pattern, consistent with probable elevated filling pressures. Right Ventricle: The right ventricle is moderately dilated. Right ventricular systolic function is mildly reduced. Atria: The left atrium is moderately dilated. The right atrium is mild to moderately dilated. The interatrial septum grossly appears intact with no obvious evidence for an atrial septal defect. Mitral Valve: The mitral valve is normal. There is no mitral valve stenosis. There is trace mitral regurgitation. Aortic Valve: The aortic valve is trileaflet. There is no aortic valve stenosis. No aortic regurgitation is present. Tricuspid Valve: The tricuspid valve is normal. There is no tricuspid stenosis. There is moderate tricuspid regurgitation. Right ventricular systolic pressure is estimated to be 59 mmHg plus the clinically estimated CVP which cannot be estimated on this exam. Pulmonic Valve: The pulmonic valve is not well visualized. There is no pulmonic valvular stenosis. There is mild pulmonic regurgitation. Great Vessels: The aortic root is normal size. The dimensions of the ascending aorta are normal. The inferior vena cava was not visualized. Pericardium/ Pleura There is no pericardial effusion. There is no pleural effusion. MMode/2D Measurements & Calculations LVIDd: 4.4 cm LVOT diam: 2.2 cm LVIDs: 3.6 cm Ao root diam: 3.0 cm FS: 17.5 % asc Aorta Diam: 3.5 cm IVSd: 1.3 cm Ao Arch Diam (Prox Trans): 2.9 cm LVPWd: 1.2 cm LV triana. diameter/BSA (cm/m^2): 2.5 LV sys. diameter/BSA (cm/m^2): 2.0 LA A2 area: 23.0 cm2 RA long axis: 4.8 cm LA A4 area: 26.1 cm2 RA area: 16.4 cm2 LA length (vol): 6.5 cm RA vol: 47.4 ml LA vol: 78.1 ml RA : 26.7 ml/m2 LA vol index: 44.0 ml/m2 RVD1 (basal): 5.1 cm RVD2 (mid): 4.6 cm TAPSE: 2.6 cm Doppler Measurements & Calculations Ao V2 max: 146.0 cm/sec LVOT Max Nile: 108.1 cm/sec Ao V2 mean: 105.6 cm/sec LV V1 max P.7 mmHg Ao max P.5 mmHg LV V1 VTI: 23.6 cm Ao mean P.9 mmHg ELIUD(I,D): 2.8 cm2 Ao V2 VTI: 30.9 cm ELIUD(V,D): 2.7 cm2 sev ratio: 0.76 ELIUD indexed to BSA (cm^2/m^2): 1.6 MV E max nile: 87.2 cm/sec TR max nile: 391.0 cm/sec MV A max nile: 79.9 cm/sec TR max P.7 mmHg MV E/A: 1.1 PA V2 max: 111.3 cm/sec Med Peak E' Nile: 3.1 cm/sec PA V2 mean: 69.7 cm/sec E/E' med: 27.8 PA mean P.2 mmHg Lat Peak E' Nile: 6.9 cm/sec PA pr(Accel): 51.6 mmHg E/E' lat: 12.6 E/e' average: 20.2 MV dec time: 0.18 sec SV(LVOT): 86.1 ml Reading Physician:02:56 PM
--- NOTE | 2023-11-20 16:27 | P.HP_ITS ---
History of Present Illness History of Present Illness Date Patient Seen: 11/20/23 Time Patient Seen: 16:27 Chief complaint: sob Narrative: This is a very pleasant patient who is under the primary care of Dr. Castaneda. She presents to the emergency room for evaluation of progressive worsening dyspnea Past medical history: 1. Congestive heart failure, last visible echo was in August of 2018 and showed an EF of 25% 2. Chronic kidney disease stage IIIA 3. Chronic neck pain secondary to cervical spondylosis 4. Lumbar spondylosis 5. Previous L1 vertebral compression fracture 6. Osteoporosis 7. Stress-induced cardiomyopathy 8. History of previous GI bleed secondary to duodenal ulcer 9. Hypertension 10. Hiatal hernia 11. Status post nephrectomy 12. Former tobacco use, distant, quit 1956 Past surgical history Nephrectomy due to infection Family history: mom of pancreatic cancer; mom was adopted; doesnt know anything about father Health related behavior: Distant history of smoking, quit in 1956, no alcohol, no illicit drugs Social history: Patient is , she is 2 children. 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 She lives here in [facility]. Grew up in [place] and moved here due to her youngest daughter moving here. Patient lives in [facility] Review of systems: No fever, no cough Patient did have weakness over the last 5 days and worsening dyspnea on exertion and shortness of breath feeling she had to take a deep breath to catch her breath. Denies any syncope or presyncope Denies any chest pain or lightheadedness or dizziness Denies any urine symptoms Denies any change in bowel movements, no diarrhea, no constipation, no blood in her stool, no melena No headaches or rashes No recent weight loss or weight gain Patient with dry flaky skin lower legs [facility] Medical History Myofascial pain Lumbar spondylosis Closed L1 vertebral fracture Cervical spondylosis Chronic neck pain Uncomplicated opioid dependence Chronic renal failure, stage 3a Chronic systolic (congestive) heart failure Glaucoma (~11/2016) Osteoporosis 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) History of duodenal ulcer History of gastrointestinal hemorrhage Essential hypertension Idiopathic scoliosis (07/03/11) Hiatal hernia (07/03/11) Chronic back pain Status post nephrectomy Social History marital status: number of children: 2 household members: none lives independently: Yes caregiver/support person: Yes housing: house pets and animals: Yes education level: college (3 years) occupational status: other (Retired) 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 kerry/taoism: [employer] travel history: other ([place]) leisure activities: reading and other (Meetings, Trips with granddaughter, knit, cooks.) Smoking Status: Former smoker Tobacco: How many years used: 8 Smokeless tobacco user: other (Cigarettes) quit status: quit date established (1956) second hand exposure: No alcohol intake: current substance use type: does not use Meds Home Medications and Allergies Home Medications Medication Instructions Recorded Confirmed Type vitamin E 268 mg (400 unit) capsule 400 unit PO DAILY ##0 07/08/11 11/20/23 History ferrous sulfate 325 mg (65 mg 325 mg PO DAILY 10/13/18 11/20/23 History iron) tablet (Iron (ferrous sulfate)) Disabled Parking Permit #1 ea 10/21/18 11/20/23 Rx sacubitril 24 mg-valsartan 26 mg 1 tab PO BID 11/10/18 11/20/23 History tablet (Entresto) alendronate 70 mg tablet (Fosamax) 70 mg PO QWEEK #12 tabs 08/10/22 11/20/23 Rx metoprolol succinate 50 mg 50 mg PO BID #180 tabs 02/22/23 11/20/23 Rx tablet,extended release 24 hr gabapentin 600 mg tablet 600 mg PO TID #270 tabs 06/07/23 11/20/23 Rx (Neurontin) omeprazole 40 mg capsule,delayed 40 mg PO QDAY #90 caps 08/17/23 11/20/23 Rx release hydrocodone 5 mg-acetaminophen 325 1 tab PO Q4H PRN pain #90 tabs 09/13/23 11/20/23 Rx mg tablet gabapentin 300 mg capsule 300 mg PO BEDTIME #30 caps 11/11/23 11/20/23 Rx Allergies Allergy/AdvReac Type Severity Reaction Status Date / Time duloxetine AdvReac Intermediate Drowsy Verified 11/11/23 15:19 morphine AdvReac Intermediate mental Verified 11/11/23 15:19 status changes Exam Vital Signs (past 8 hours): - 11/20/23 11:13 11/20/23 11:14 11/20/23 11:14 Temperature Pulse Rate 95 H 78 Respiratory Rate 31 H Blood Pressure 195/128 H Pulse Oximetry 85 L 86 L Oxygen Delivery Method Room Air Room Air Oxygen Flow Rate 11/20/23 11:15 11/20/23 11:16 11/20/23 11:20 Temperature 98.2 F Pulse Rate 84 92 H 77 Respiratory Rate 26 H 28 H 24 Blood Pressure 195/128 H Pulse Oximetry 92 88 L 95 Oxygen Delivery Method Nasal Cannula Room Air Nasal Cannula Oxygen Flow Rate 3 3 11/20/23 11:25 11/20/23 11:30 11/20/23 11:35 Temperature Pulse Rate 70 73 69 Respiratory Rate 38 H 38 H 36 H Blood Pressure Pulse Oximetry 96 94 95 Oxygen Delivery Method Nasal Cannula Nasal Cannula Nasal Cannula Oxygen Flow Rate 3 3 3 11/20/23 11:37 11/20/23 11:37 11/20/23 11:40 Temperature Pulse Rate 71 72 Respiratory Rate 29 H 39 H Blood Pressure 178/99 H Pulse Oximetry 93 94 Oxygen Delivery Method Nasal Cannula Oxygen Flow Rate 3 3 11/20/23 11:45 11/20/23 11:50 11/20/23 11:55 Temperature Pulse Rate 69 62 69 Respiratory Rate 31 H 28 H 27 H Blood Pressure Pulse Oximetry 92 90 L 91 Oxygen Delivery Method Oxygen Flow Rate 3 3 11/20/23 12:04 11/20/23 12:05 11/20/23 12:05 Temperature Pulse Rate 80 88 Respiratory Rate 27 H 40 H Blood Pressure 189/91 H Pulse Oximetry 92 92 Oxygen Delivery Method Nasal Cannula Oxygen Flow Rate 3 11/20/23 12:07 11/20/23 12:07 11/20/23 12:10 Temperature Pulse Rate 85 69 Respiratory Rate 32 H 28 H Blood Pressure 184/92 H Pulse Oximetry 95 96 Oxygen Delivery Method Oxygen Flow Rate 11/20/23 12:15 11/20/23 12:20 11/20/23 12:25 Temperature Pulse Rate 67 69 65 Respiratory Rate 24 24 24 Blood Pressure Pulse Oximetry 94 93 93 Oxygen Delivery Method Oxygen Flow Rate 11/20/23 12:30 11/20/23 12:30 11/20/23 12:35 Temperature Pulse Rate 63 69 Respiratory Rate 24 24 Blood Pressure 196/85 H Pulse Oximetry 93 92 Oxygen Delivery Method Nasal Cannula Oxygen Flow Rate 2 11/20/23 12:40 11/20/23 12:45 11/20/23 12:50 Temperature Pulse Rate 64 62 65 Respiratory Rate 22 31 H 23 Blood Pressure Pulse Oximetry 94 95 94 Oxygen Delivery Method Oxygen Flow Rate 11/20/23 12:55 11/20/23 13:08 11/20/23 13:10 Temperature Pulse Rate 69 71 73 Respiratory Rate 29 H 26 H Blood Pressure Pulse Oximetry 95 93 94 Oxygen Delivery Method Nasal Cannula Oxygen Flow Rate 2 11/20/23 13:15 11/20/23 13:20 11/20/23 13:25 Temperature Pulse Rate 67 73 72 Respiratory Rate 24 24 26 H Blood Pressure Pulse Oximetry 94 93 92 Oxygen Delivery Method Oxygen Flow Rate 11/20/23 13:30 11/20/23 13:30 11/20/23 13:35 Temperature Pulse Rate 85 75 Respiratory Rate 24 30 H Blood Pressure 186/93 H Pulse Oximetry 91 Oxygen Delivery Method Oxygen Flow Rate 11/20/23 13:48 11/20/23 13:50 11/20/23 13:55 Temperature Pulse Rate 77 70 70 Respiratory Rate 38 H 31 H 24 Blood Pressure Pulse Oximetry 95 Oxygen Delivery Method Oxygen Flow Rate 11/20/23 14:00 11/20/23 14:00 Temperature Pulse Rate 67 Respiratory Rate 24 Blood Pressure 156/71 H Pulse Oximetry 94 Oxygen Delivery Method Nasal Cannula Oxygen Flow Rate 2 Oxygen Delivery Method Nasal Cannula Oxygen Flow Rate 2 Narrative Exam Narrative: Patient is a delightful 83-year-old female who appears younger than stated age and is alert and oriented x3 and an excellent historian with a good understanding of medical terms HEENT is unremarkable Neck: Supple without adenopathy or thyromegaly and no jugular venous distention or bruits Chest: Diffuse rhonchi right greater than left with bibasilar crackles but no tachypnea Cor: Irregularly irregular rhythm with a well-controlled rate with systolic murmur 2-3 out of 5 Abdomen: Positive bowel sounds, soft, nontender, nondistended, no hepatosplenomegaly Extremities: Patient does have chronic changes to bilateral lower extremities with lichenification and some atrophy of muscles and mild erythema which they state is chronic there is slight increased warmth. Neurologic exam is nonfocal Skin: Patient with erythema likely intertrigone under pannus bilaterally and under breasts. Thickened dry skin on back Objective Labs 11/20/23 11:32 11/20/23 11:32 Labs: Laboratory Results - last 24 hr 11/20/23 11/20/23 11:18 11:32 WBC 5.0 RBC 4.30 Hgb 13.3 Hct 41.5 MCV 96.5 MCH 30.8 MCHC 31.9 RDW 14.6 Plt Count 232 Neut % (Auto) 75.9 H Lymph % (Auto) 14.6 L [place] % (Auto) 7.7 Eos % (Auto) 1.1 L Baso % (Auto) 0.7 Neut # (Auto) 3800 Lymph # (Auto) 700 L [place] # (Auto) 400 Eos # (Auto) 100 Baso # (Auto) 0 Sodium 136 L Potassium 4.2 Chloride 100 Carbon Dioxide 31 BUN 16 Creatinine 0.65 Estimated GFR > 60 BUN/Creatinine Ratio 24.6 H Glucose 104 Lactate 1.0 Calcium 9.3 Total Bilirubin 0.9 AST 19 ALT 21 Alkaline Phosphatase 76 Total Creatine Kinase 29 L Troponin I < 0.012 NT-Pro-B Natriuret Pep 8970 H Total Protein 7.5 Albumin 4.1 Globulin 3.4 Albumin/Globulin Ratio 1.2 Lipase 37 Procalcitonin < 0.03 Chlamy pneumoniae PCR Not detected Adenovirus (PCR) Not detected B.parapertussis DNA PCR Not detected Coronavirus OC43 (PCR) Not detected Coronavirus HKU1 (PCR) Not detected Coronavirus 229E (PCR) Not detected SARS-CoV-2 (PCR) Not detected Coronavirus NL63 (PCR) Not detected Human Metapneumovir PCR Not detected Influenza Type A (PCR) Not detected Influenza Type B (PCR) Not detected M. pneumoniae (PCR) Not detected Parainfluenza 1 (PCR) Not detected Parainfluenza 2 (PCR) Not detected Parainfluenza 3 (PCR) Not detected Parainfluenza 4 (PCR) Not detected RSV (PCR) Not detected Entero/Rhino (PCR) Not detected Assessment & Plan Assessment & Plan narrative: 83-year-old female admitted for acute exacerbation of congestive heart failure Assessment 1. Hypoxemia secondary to acute exacerbation of chronic congestive heart failure. Symptomatically improved with 60 mg of IV Lasix in the ER Plan: Patient was admitted to the general medical floor. Will give supplemental oxygen and diurese as needed. Will place on telemetry. Will rule out acute DE as etiology. Will do echo. Patient is under the care of Dr. Castano. Last echo was a year and a half ago and apparently ejection fraction was normal. Patient attributes this to the Entresto. We will continue outpatient Entresto and metoprolol. Milian catheter is placed due to skin breakdown in perineum and need for monitoring ins and outs and diuresis. Assessment 2. Possible candidiasis Plan: Will treat with nystatin Assessment 3. Chronic pain Plan: Will continue outpatient gabapentin 600 b.i.d. and 300 at bedtime. Assessment 4. History of duodenal ulcer with GI bleed Plan: Will continue outpatient PPI Code status is DNR DVT prophylaxis Lovenox 60 minutes spent with patient discussing with ER physician, reviewing clinic chart and hospital chart and ER workup and meeting with patient and her daughter, formulating a plan and documentation.
[2023-11-20 16:53] LABS: Appearance Urine UA CLEAR; Bilirubin Urine UA NEGATIVE (NEGATIVE); Glucose Urine UA NEGATIVE (Negative); Ketones Urine UA NEGATIVE (NEGATIVE); Leukocyte Esterase Urine UA NEGATIVE (NEGATIVE); Nitrite Urine UA NEGATIVE (Negative); Occult Blood Urine UA NEGATIVE (Negative); Protein Urine UA NEGATIVE (Negative); Specific Gravity Urine UA <=1.005 (1.000-1.035); Urobilinogen Urine UA 0.2 E.U./dL (0.2)
[2023-11-20 16:57] LABS: Color Urine UA Straw
[2023-11-20 17:00] LABS: Bacteria Urine Occasional (0-1); Culture Indicated Urine Cult Not Indicated; RBC Urine None Seen (0-5/HPF); Squamous Epithelial Cell Urine None Seen (0-5/HPF); Urine Volume 10mL (spun); WBC Urine None Seen (0-5/HPF)
[2023-11-20] MEDS: NYSTATIN POWDER 15GM 1 APPLIC TOP ×2 (18:56→21:10)
[2023-11-20] MEDS: HYDROCODONE/ACET 5/325 TABLET 1 TAB PO ×2 (18:57→21:08)
[2023-11-20] MEDS: GABAPENTIN 600 MG TABLET PO (21:08)
[2023-11-20] MEDS: GABAPENTIN 300 MG CAPSULE PO (21:08)
[2023-11-20] MEDS: METOPROLOL ER 50 MG TABLET PO (21:09)
[2023-11-20] MEDS: NYSTATIN CREAM 30 GM 1 APPLIC TOP (21:14)
[2023-11-21] VITALS (11 sets, daily range): BP systolic 130–156; BP diastolic 62–88; PULSE 68–88; RESP 16–18; TEMP 35.8–37.3; O2SAT 93–96
[2023-11-21] MEDS: HYDROCODONE/ACET 5/325 TABLET 1 TAB PO ×3 (01:01→21:18)
[2023-11-21] MEDS: PANTOPRAZOLE DR 40 MG TABLET PO (05:35)
[2023-11-21 06:38] LABS: Add Manual Diff / Slide Review NO; Basophils Absolute Auto 0 /uL (0-100); Basophils Percent Auto 0.6 % (0-2); Eosinophils Absolute Auto 100 /uL (0-450); Eosinophils Percent Auto 1.4 % (2-4); Hematocrit 45.5 % (36-46); Hemoglobin 14.4 g/dL (12.0-16.0); Lymphocytes Absolute Auto 700 /uL (1100-4500); Lymphocytes Percent Auto 15.3 % (25-40); Mean Corpuscular HGB Conc 31.7 % (30-36); Mean Corpuscular Hemoglobin 31.1 PG (26-34); Mean Corpuscular Volume 98.2 fL (80-100); Monocytes Absolute Auto 500 /uL (0-900); Monocytes Percent Auto 9.9 % (3-14); Neutrophils Absolute Auto 3500 /uL (1500-7000); Neutrophils Percent Auto 72.8 % (50-75); Platelet Count 229 X10^3/uL (150-400); Red Blood Cell Count 4.64 X10^6/uL (4.0-5.2); Red Cell Distribution Width 14.9 % (11.6-14.8); White Blood Cell Count 4.9 X10^3/uL (4.5-11.0)
[2023-11-21 06:50] LABS: BUN Creatinine Ratio 19.8 (6-22); Blood Urea Nitrogen 18 mg/dL (7-17); Calcium 9.1 mg/dL (8.4-10.2); Chloride 98 mmol/L (98-107); Creatine Kinase 29 U/L (30-135); Estimated Glomerular Filt Rate > 60 mL/min (>60); Glucose 97 mg/dL (80-110); HEMOLYSIS < 15 (0-50); Potassium 3.9 mmol/L (3.4-5.1); Sodium 141 mmol/L (137-145)
[2023-11-21 06:57] LABS: Carbon Dioxide 37 mmol/L (22-32)
[2023-11-21 06:59] LABS: NT-proBNP (BNP-Adult 18+) 7040 pg/mL (<450)
[2023-11-21 07:03] LABS: Troponin I 0.014 ng/mL (0.01-0.034)
[2023-11-21] MEDS: ENOXAPARIN 40 MG/0.4 ML SYRINGE SUBCUT (09:55)
[2023-11-21] MEDS: FERROUS SULFATE 325 MG TABLET PO (09:56)
[2023-11-21] MEDS: GABAPENTIN 600 MG TABLET PO ×3 (09:56→21:19)
[2023-11-21] MEDS: METOPROLOL ER 50 MG TABLET PO ×2 (09:56→21:18)
[2023-11-21] MEDS: NYSTATIN CREAM 30 GM 1 APPLIC TOP ×3 (10:00→21:00)
[2023-11-21] MEDS: SODIUM CHLORIDE 0.9% FLUSH 10 ML IV ×2 (10:00→21:18)
--- NOTE | 2023-11-21 11:13 | CM.DANOTE ---
Patient is an 83 yo female who was admitted on 11/20/23 for CHF exacerbation. Pt has BCBS M[employer] ADV for insurance and her PCP is Dr. Charles Castaneda. EMR was reviewed. Per , pt with hx of CHF and now requiring O2 and Lasix and likely not yet medically stable to d/c today. PT/OT ordered and pending. Per RN, pt on 1LO2 and will trial room air this morning. SW met bedside with pt and explained role and she confirms she lives at [facility] but on the independent side in her own apt and just goes to meals but manages her own ADLs. Pt states she uses a FWW for ambulation at baseline. Pt states her local supportive Dtr Phi is her DPOA and would likely be the one to provide transport at d/c. Pt states her other Dtr Marina lives in [place]. Pt is hopeful to d/c back to [facility] when medically stable. Pt denies any recent hx of HH or SNF but does have a hx a few years ago of SNF at [facility]. Plan: SW to follow closely for PT/OT recommendations to confirm safe plan of return to [facility] when medically stable and any further identified discharge planning needs. KATHLEEN Camargo Discharge Planning/Care Management Advanced directive, confirm from FAMILY Start: 11/20/23 16:39 Freq: Q24H Status: Active Protocol: Document 11/20/23 16:39 MS (Rec: 11/20/23 16:42 MS [id number]) Advance Directive, confirm on record Time 15:20 Person contacted daughter Copy received No CM Discharge Assessment Start: 11/21/23 11:10 Freq: Status: Active Protocol: Document 11/21/23 11:10 BF (Rec: 11/21/23 11:13 BF [id number]) Discharge Planning Assessment Assigned Vineyard Tender KATLHEEN Varma DPOA/Assigned Designee Name Dtr Phi Contact Information [phone] Advance Directives? No Advance Directives on File No History Provided By Patient,Family Member,Medical Record Has Patient been admitted in last 30 No days? Prior Living Arrangements Apartment/Condo Comment Independent apt at [facility] Household Members none Type of transporation used prior to Relies on Others admit Facility Name Admitted From: [facility] Willing to Return to Facility? Yes Independent with ADL's Yes Is patient alert and oriented? Yes Needs Assistance With Home Chores / Shopping Caregiver for Another No DME Already Rented / Owned FWW / Walker Comment Patient endorses she uses a FWW with wheels at baseline and uses cane when she is out in public at baseline. Comment Pending PT/OT eval and recommendations Barriers to Discharge No Discharge Plan Home with Home Health Transportation Arrangement Likely local Dtr Phi to transport at d/c Additional Comment Pending PT/OT eval and recommendations Whiteboard Updated in Patient Room with Yes name and ext. # of Vineyard Tender Review Status In Process Please Provide Date Initial DC 11/21/23 Assessment Was Performed Next Review Type Continued Stay Review
--- NOTE | 2023-11-21 11:27 | PT-IP ANOTE ---
PT consult received. PT reviews chart and checks on on pt. Pt currently receiving US procedure/ECHO in the room. Will con't PT efforts. Thank you for this consult.
--- NOTE | 2023-11-21 14:05 | PT.IIE ---
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 Pt lives in I living at [facility] and it is an accessible building and apartment, elevator Home Equipment Four Wheel Walker Employment Status Retired Additional Social History Comment Accessible apartment and BR at [facility], flat bed and no bed rails M2 PT-IP Current Condition Start: 11/21/23 09:22 Freq: NEEDED Status: Active Protocol: Document 11/21/23 13:23 MB (Rec: 11/21/23 14:05 JULIA [id number]) Physical Therapy Current Condition Current Condition Evaluation Date 11/21/23 Treatment Diagnosis SOB M3 PT-IP Subjective Start: 11/21/23 09:22 Freq: NEEDED Status: Active Protocol: Document 11/21/23 13:23 MB (Rec: 11/21/23 14:05 MB [id number]) Subjective Physical Therapy Visit Type Type Initial Evaluation Visit Start Time 13:23 Visit Stop Time 13:57 Number of REHABILITATION PROGRAM COORDINATOR Visits 0 Physical Therapy Visit Comments Patient Comments Pt is agreeable to PT. Therapy Pain Assessment Pain When Pain Assessed At Rest Pain Present Pain Present Denied Pain M4 PT-IP Mobility and Gait Start: 11/21/23 09:22 Freq: NEEDED Status: Active Protocol: Document 11/21/23 13:23 MB (Rec: 11/21/23 14:05 MB [id number]) PT-Bed Mobility Assessment Rolling Level of Assist Independent Supine to Sit Supine to Sit Independent Sit to Supine Sit to Supine Independent Scooting Scooting to Edge of Bed Independent Scooting Up and Down in Bed Independent PT-Transfer Assessment Sit to and From Stand Sit to and from Stand Contact Guard Assistance,1 Person Assistance,Use of Upper Extremities Equipment Transfer Assistive Device Gait Belt,Front Wheeled Walker Orthotic/Prosthetic Devices or Brace: No Transfers Transfer Destination Bed Transfer Technique Walking around bed Transfer Ability Level of Assist Contact Guard Assistance,1 Person Assistance,Use of Upper Extremities Comments Mobility Comments Slow mobility with bed flat and pt is I, CGA for transfers and use of RW, pt with severe scoliosis and slow mobility. O2 sats on 1L O2 are 89-90% with rest and mobility Gait Assessment Gait Gait Assistance Required: Contact Guard Assist Distance (Feet) 20 Able to Maintain Weight Bearing Status Yes During Gait Assistive Devices Assistive Device Gait Belt,Front Wheeled Walker Orthotic/Prosthetic Devices or Brace: No Gait Deviations General Gait Pattern Decreased Stride Length, Decreased Feet Clearance, Flexed Trunk Factors Limiting Gait Function Factors Limiting Gait Function Decreased Activity Tolerance, Limited Range of Motion,Poor Balance Comments Gait Comments Pt with slow mobility and severe spinal changes from scoliosis, flexed posture and use of O2 today and see sats above PT-Balance Assessment Sitting Balance and Reactions Static Sitting Balance Ability Good Dynamic Sitting Balance Ability Good Standing Balance and Reactions Static Standing Balance Ability Good Dynamic Standing Balance Ability Good Device Used RW M5 PT-IP Objective Assessments Start: 11/21/23 09:22 Freq: NEEDED Status: Active Protocol: Document 11/21/23 13:23 MB (Rec: 11/21/23 14:05 MB [id number]) Orientation Orientation/Cognition Level of Alertness Alert Orientation Name,Age,Birthday,Month,Date, Year,Day of Week,Place, Situation Language Function Ability No Deficits Noted Safety Awareness Understands Safety Issues Memory Description No Deficits Noted Gross Range of Motion Upper Extremity ROM Assessment Within Functional Limits Lower Extremity ROM Assessment Within Functional Limits Strength Upper Extremity Strength Assessment Within Functional Limits Lower Extremity Strength Assessment Within Functional Limits Comments Strength Comments Strength and range are functional though pt has postural changes from scoliosis that affect pelvic alignment and pt with pelvic obliquities and functional leg length difference with mobility M6 PT-IP Treatment Start: 11/21/23 09:22 Freq: NEEDED Status: Active Protocol: Document 11/21/23 13:23 MB (Rec: 11/21/23 14:05 MB [id number]) Physical Therapy Treatment Education Education Provided Safety M7 PT-IP Assessment and Plan Start: 11/21/23 09:22 Freq: NEEDED Status: Active Protocol: Document 11/21/23 13:23 MB (Rec: 11/21/23 14:05 MB [id number]) PT Summary Assessment and Plan Potential Rehabilitation Potential Good Status of Condition at Evaluation Evolving Summary Impairments ROM,Balance,Transfers,Gait, Activity Tolerance Progress Towards Goals Progressing Toward Goals Assessment Summary Pt is a pleasant 83 y/o female who presents with good self and mobility awareness. She moves slowly and has severe spinal changes from scoliosis. Bed mobility is I and transfers and gait require CGA . O2 sats are 89-91% on 1L O2 and recommend RT walking test before d/c, d/c back to [facility] and PT consult for gait and balance at the facility. Goals Transfer Goal Independent,Front Wheeled Walker,Four Wheeled Walker Gait Goal Independent,Front Wheel Walker ,Four Wheel Walker Gait Distance 75 Days to Meet Goals 3 Frequency of Treatment Frequency Of Treatment Once a Day Treatment Plan Physical Therapy Treatment Plan Transfer Training,Gait Training,Therapeutic Exercise, Balance Retraining,Discharge Planning,Hot or Cold Pack, Neuromuscular Re-ed,Manual Therapy Weight Bearing Status Weight Bearing Status Weight Bear as Tolerated Recommendations To Nursing Amount of Assist Needed Standby Assistance,1 Person Assist Discharge Recommendations PT Discharge Recommendations Home,Outpatient PT Other Discharge Recommendations PT from therapists at [facility] and this clinician thinks they might need an outpatient referral to see pt Transportation Needs at Discharge Private Vehicle,Wheelchair/ Cabulance
--- NOTE | 2023-11-21 15:26 | P.PN_ITS ---
Subjective Subjective Date Patient Seen: 11/21/23 Time Patient Seen: 15:26 Interval history: Patient was successfully weaned down to 1 L nasal cannula oxygen. She states that she slept great last night without any problems. She feels that her breathing is better. She is weak but got up with nursing as well as with physical therapy. She is tolerating p.o. without difficulty. She denies any chest pain. She was achy last night and received an extra dose of her hydrocodone. Bowel movements are normal. She currently has a Milian catheter in place. Twelve point review of systems is otherwise negative Exam Vital Signs (past 8 hours): - 11/21/23 08:00 11/21/23 09:56 11/21/23 10:12 Temperature 99.2 F Pulse Rate 76 77 Respiratory Rate 18 Blood Pressure 139/63 139/63 Pulse Oximetry 95 Oxygen Delivery Method Nasal Cannula Oxygen Flow Rate Fraction of Inspired Oxygen 11/21/23 11:14 11/21/23 13:13 Temperature 98.9 F Pulse Rate 78 Respiratory Rate 18 Blood Pressure 134/62 Pulse Oximetry 93 95 Oxygen Delivery Method Nasal Cannula Oxygen Flow Rate 1 Fraction of Inspired Oxygen 24 Fraction of Inspired Oxygen 24 SaO2/FiO2 Ratio 387 Oxygen Delivery Method Nasal Cannula Oxygen Flow Rate 1 Narrative Exam Narrative: Patient is resting in hospital bed sleeping in no apparent distress Patient is alert and oriented x3 Afebrile vital signs are stable HEENT is unremarkable mucous membranes moist and pink without lesions Chest: Shows bibasilar crackles but improved air exchange and no wheezes or rhonchi today Cor: Regular rate and rhythm with respiratory arrhythmia. Distant S1-S2 Abdomen: Positive bowel sounds, soft, nontender Extremities: No edema. Did have trace edema yesterday. Objective Labs 11/21/23 05:50 11/21/23 05:50 Labs: Laboratory Results - last 24 hr 11/20/23 11/21/23 15:20 05:50 WBC 4.9 RBC 4.64 Hgb 14.4 Hct 45.5 MCV 98.2 MCH 31.1 MCHC 31.7 RDW 14.9 H Plt Count 229 Neut % (Auto) 72.8 Lymph % (Auto) 15.3 L Stephen[place] % (Auto) 9.9 Eos % (Auto) 1.4 L Baso % (Auto) 0.6 Neut # (Auto) 3500 Lymph # (Auto) 700 L Stephenson # (Auto) 500 Eos # (Auto) 100 Baso # (Auto) 0 Sodium 141 Potassium 3.9 Chloride 98 Carbon Dioxide 37 H BUN 18 H Creatinine 0.91 Estimated GFR > 60 BUN/Creatinine Ratio 19.8 Glucose 97 Calcium 9.1 Total Creatine Kinase 29 L Troponin I 0.014 NT-Pro-B Natriuret Pep 7040 H Urine Color Straw Urine Appearance Clear Urine pH 6.0 Ur Specific [place] <=1.005 Urine Protein Negative Urine Glucose (UA) Negative Urine Ketones Negative Urine Occult Blood Negative Urine Nitrate Negative Urine Bilirubin Negative Urine Urobilinogen 0.2 Ur Leukocyte Esterase Negative Urine RBC None seen Urine WBC None seen Ur Squamous Epith Cells None seen Urine Bacteria Occasional (0-1) Ur Culture Indicated? 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) History of duodenal ulcer History of gastrointestinal hemorrhage Essential hypertension Idiopathic scoliosis (07/03/11) Hiatal hernia (07/03/11) Chronic back pain Status post nephrectomy Social History marital status: number of children: 2 household members: none lives independently: Yes caregiver/support person: Yes housing: house pets and animals: Yes education level: college (3 years) occupational status: other (Retired) 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 Hypoxemia secondary to acute exacerbation of chronic congestive heart failure. Symptomatically improved with 60 mg of IV Lasix in the ER Plan: Patient is under the care of Dr. Castano. Last echo was a year and a half ago and apparently ejection fraction was normal. Patient attributes this to the Entresto. We will continue outpatient Entresto and metoprolol. Reviewed echo report with patient and do not have access to the echo that was done by Dr. Castano approximately a year and a half ago but in a note it says that her ejection fraction was approximately 50% and this is what she thinks. Therefore most likely ejection fraction is stable. We will continue with diuresis and give additional 40 mg IV Lasix today. Will check labs and see how she is doing clinically and likely switch to oral Lasix tomorrow but this will be a clinical decision tomorrow. Patient will continue on the same dose of Entresto. She will likely need to go home on a low-dose Lasix. Her telemetry shows normal sinus rhythm with a bundle branch block. EKG showed sinus rhythm as well. I think on auscultation this is a sinus rhythm with respiratory arrhythmia. She will continue on the same metoprolol. She will continue with the Milian catheter due to diuresis and perineal breakdown which looks stable and improved from yesterday. Will recheck BNP and electrolytes tomorrow. Will continue telemetry The study quality was technically difficult. There is mild concentric left ventricular hypertrophy. The ejection fraction is estimated to be 45-50%. Grade II diastolic dysfunction. The left atrium is moderately dilated. The right ventricle is moderately dilated. Right ventricular systolic function is mildly reduced. The right atrium is mild to moderately dilated. There is moderate tricuspid regurgitation. Right ventricular systolic pressure is estimated to be 59 mmHg plus the clinically estimated CVP which cannot be estimated on this exam. Assessment 2. Possible candidiasis Plan: Will treat with nystatin. Will continue with same nystatin. Assessment 3. Chronic pain Plan: Will continue outpatient gabapentin 600 b.i.d. and 300 at bedtime. Continue hydrocodone as outpatient. Assessment 4. History of duodenal ulcer with GI bleed Plan: Will continue outpatient PPI Code status is DNR DVT prophylaxis Lovenox 52 minutes spent with patient discussing with care management, nursing, reviewing clinic chart and hospital chart and ER workup and meeting with patient, formulating a plan and documentation. Quality VTE Deep Vein Thrombosis/Pulmonary Embolism Present on Admission: No
[2023-11-21] MEDS: FUROSEMIDE 40 MG/4 ML VIAL IV (16:10)
[2023-11-21] MEDS: GABAPENTIN 300 MG CAPSULE PO (21:18)
[2023-11-21] MEDS: NYSTATIN POWDER 15GM 1 APPLIC TOP (21:19)
[2023-11-21] MEDS: DOCUSATE 100 MG CAPSULE PO (21:19)
[2023-11-21] MEDS: SACUBITRIL VALSARTAN 1 EACH PO (21:19)
[2023-11-22] VITALS (9 sets, daily range): BP systolic 116–156; BP diastolic 55–72; PULSE 61–69; RESP 16–17; TEMP 35.9–36.3; O2SAT 90–94
[2023-11-22] MEDS: PANTOPRAZOLE DR 40 MG TABLET PO (05:51)
[2023-11-22 06:12] LABS: BUN Creatinine Ratio 29.2 (6-22); Blood Urea Nitrogen 28 mg/dL (7-17); Chloride 95 mmol/L (98-107); Estimated Glomerular Filt Rate 58 mL/min (>60); Glucose 119 mg/dL (80-110); HEMOLYSIS < 15 (0-50); Sodium 139 mmol/L (137-145)
[2023-11-22 06:21] LABS: NT-proBNP (BNP-Adult 18+) 2930 pg/mL (<450)
[2023-11-22 06:27] LABS: Carbon Dioxide 41 mmol/L (22-32)
[2023-11-22] MEDS: ENOXAPARIN 40 MG/0.4 ML SYRINGE SUBCUT (08:10)
[2023-11-22] MEDS: DOCUSATE 100 MG CAPSULE PO (08:10)
[2023-11-22] MEDS: METOPROLOL ER 50 MG TABLET PO ×2 (08:10→22:08)
[2023-11-22] MEDS: FUROSEMIDE 40 MG/4 ML VIAL IV (08:10)
[2023-11-22] MEDS: GABAPENTIN 600 MG TABLET PO ×2 (08:10→22:08)
[2023-11-22] MEDS: FERROUS SULFATE 325 MG TABLET PO (08:10)
[2023-11-22] MEDS: NYSTATIN CREAM 30 GM 1 APPLIC TOP ×2 (08:11→22:50)
[2023-11-22] MEDS: SODIUM CHLORIDE 0.9% FLUSH 10 ML IV ×2 (08:11→22:50)
[2023-11-22] MEDS: SACUBITRIL VALSARTAN 1 EACH PO (08:15)
[2023-11-22] MEDS: HYDROCODONE/ACET 5/325 TABLET 1 TAB PO ×3 (08:17→22:08)
--- NOTE | 2023-11-22 08:18 | P.PN_ITS ---
Subjective Subjective Date Patient Seen: 11/22/23 Time Patient Seen: 08:18 Interval history: Patient says she was feeling much better. Discussed her presentation with her she did not present with classic congestive heart failure kind of symptoms just feeling weak like she would some sort of infection even tested herself for COVID This is a bit different than her prior admission for congestive heart failure when her ejection fraction was so severely diminished This time echo shows minimal reduction in left ventricular function although that is a change from echo of September of 2021 when it had returned to normal with a left ventricular EF of about 65% (currently 45-50%). This prior echo was done via [facility] so not available in the [facility] system Still requiring limited oxygen, currently at 1 liter/minute nasal cannula Exam Vital Signs (past 8 hours): - 11/22/23 05:00 11/22/23 08:10 Temperature 97.2 F L Pulse Rate 69 Respiratory Rate 17 Blood Pressure 156/72 H 156/72 H Pulse Oximetry 92 Oxygen Flow Rate 1 Fraction of Inspired Oxygen 24 SaO2/FiO2 Ratio 387 Oxygen Delivery Method Nasal Cannula Oxygen Flow Rate 1 Objective Labs 11/21/23 05:50 11/22/23 05:45 Labs: Laboratory Results - last 24 hr 11/22/23 05:45 Sodium 139 Potassium 4.0 Chloride 95 L Carbon Dioxide 41 H* BUN 28 H Creatinine 0.96 Estimated GFR 58 L BUN/Creatinine Ratio 29.2 H Glucose 119 H Calcium 9.0 NT-Pro-B Natriuret Pep 2930 H PFSH Medical History (Updated 11/22/23 @ 08:21 by Charles Castaneda MD) Myofascial pain Lumbar spondylosis Closed L1 vertebral fracture Cervical spondylosis Chronic neck pain Uncomplicated opioid dependence Chronic renal failure, stage 3a Chronic systolic (congestive) heart failure Glaucoma (~11/2016) Osteoporosis 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) History of duodenal ulcer History of gastrointestinal hemorrhage Essential hypertension Idiopathic scoliosis (07/03/11) Hiatal hernia (07/03/11) Chronic back pain Status post nephrectomy Social History marital status: number of children: 2 household members: none lives independently: Yes caregiver/support person: Yes housing: house pets and animals: Yes education level: college (3 years) occupational status: other (Retired) 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 Acute on chronic congestive heart failure based on reduced left ventricular function-I think patient needs additional doses of furosemide. Last dose was parental furosemide yesterday. Will give another parental dose this morning and plan for daily oral furosemide as well starting tomorrow. Recheck electrolytes etcetera with that. Wean oxygen as able. When able to come off oxygen likely can be discharged home 2. Hypertension-continue patient's current meds. Still a bit hypertensive but no changes. Perhaps will improve as we diurese her a bit more 3. History of GI bleed with duodenal ulcer and Sergey lesions, etcetera-no evidence of active bleeding. 4. History of nephrectomy-continue monitor renal function carefully with ongoing diuresis Quality VTE Deep Vein Thrombosis/Pulmonary Embolism Present on Admission: No [facility] PROFEE Charge codes Subsequent inpatient/observation care: [id number]
--- NOTE | 2023-11-22 13:09 | PT.IPTN ---
Current Diagnoses Acute on chronic systolic (congestive) heart failure (11/20/23) Physical Therapy Treatment Note M2 PT-IP Current Condition Start: 11/21/23 09:22 Freq: NEEDED Status: Active Protocol: Document 11/21/23 13:23 MB (Rec: 11/21/23 14:05 MB [id number]) Physical Therapy Current Condition Current Condition Evaluation Date 11/21/23 Treatment Diagnosis SOB M3 PT-IP Subjective Start: 11/21/23 09:22 Freq: NEEDED Status: Active Protocol: Document 11/22/23 12:40 MB (Rec: 11/22/23 13:08 MB [id number]) Subjective Physical Therapy Visit Type Type Treatment Note Visit Start Time 12:40 Visit Stop Time 13:03 Number of PLASTIC BUBBLE PACKER Visits 0 Physical Therapy Visit Comments Patient Comments Pt is agreeable to PT. M4 PT-IP Mobility and Gait Start: 11/21/23 09:22 Freq: NEEDED Status: Active Protocol: Document 11/22/23 12:40 MB (Rec: 11/22/23 13:08 MB [id number]) PT-Transfer Assessment Sit to and From Stand Sit to and from Stand Contact Guard Assistance,1 Person Assistance,Use of Upper Extremities Equipment Transfer Assistive Device Gait Belt,4 Wheeled Walker Orthotic/Prosthetic Devices or Brace: No Gait Assessment Gait Gait Assistance Required: Contact Guard Assist Distance (Feet) 100 Able to Maintain Weight Bearing Status Yes During Gait Assistive Devices Assistive Device Gait Belt,4 Wheeled Walker Orthotic/Prosthetic Devices or Brace: No Gait Deviations General Gait Pattern Decreased Stride Length, Decreased Feet Clearance, Flexed Trunk Factors Limiting Gait Function Factors Limiting Gait Function Decreased Activity Tolerance, Limited Range of Motion,Poor Balance Comments Gait Comments O2 sats on RA 86-91% throughout gait, gait training 20'x1, 50'x2 and 100'x1 today with rollator like she uses at home PT-Balance Assessment Sitting Balance and Reactions Static Sitting Balance Ability Good Dynamic Sitting Balance Ability Good Standing Balance and Reactions Static Standing Balance Ability Good Dynamic Standing Balance Ability Good Device Used Rollator M5 PT-IP Objective Assessments Start: 11/21/23 09:22 Freq: NEEDED Status: Active Protocol: Document 11/21/23 13:23 MB (Rec: 11/21/23 14:05 MB [id number]) Orientation Orientation/Cognition Level of Alertness Alert Orientation Name,Age,Birthday,Month,Date, Year,Day of Week,Place, Situation Language Function Ability No Deficits Noted Safety Awareness Understands Safety Issues Memory Description No Deficits Noted Gross Range of Motion Upper Extremity ROM Assessment Within Functional Limits Lower Extremity ROM Assessment Within Functional Limits Strength Upper Extremity Strength Assessment Within Functional Limits Lower Extremity Strength Assessment Within Functional Limits Comments Strength Comments Strength and range are functional though pt has postural changes from scoliosis that affect pelvic alignment and pt with pelvic obliquities and functional leg length difference with mobility M6 PT-IP Treatment Start: 11/21/23 09:22 Freq: NEEDED Status: Active Protocol: Document 11/21/23 13:23 MB (Rec: 11/21/23 14:05 MB [id number]) Physical Therapy Treatment Education Education Provided Safety M7 PT-IP Assessment and Plan Start: 11/21/23 09:22 Freq: NEEDED Status: Active Protocol: Document 11/22/23 12:40 MB (Rec: 11/22/23 13:08 MB [id number]) PT Summary Assessment and Plan Potential Rehabilitation Potential Good Status of Condition at Evaluation Evolving Summary Impairments ROM,Balance,Transfers,Gait, Activity Tolerance Progress Towards Goals Progressing Toward Goals Assessment Summary Fadumo progresses with gait and use rollator today. Her O2 sats are 86-91% on RA with gait training with PT today. Goals Transfer Goal Independent,Front Wheeled Walker,Four Wheeled Walker Gait Goal Independent,Front Wheel Walker ,Four Wheel Walker Gait Distance 75 Days to Meet Goals 3 Frequency of Treatment Frequency Of Treatment Once a Day Treatment Plan Physical Therapy Treatment Plan Transfer Training,Gait Training,Therapeutic Exercise, Balance Retraining,Discharge Planning,Hot or Cold Pack, Neuromuscular Re-ed,Manual Therapy Weight Bearing Status Weight Bearing Status Weight Bear as Tolerated Recommendations To Nursing Amount of Assist Needed Standby Assistance,1 Person Assist Discharge Recommendations PT Discharge Recommendations Home,Outpatient PT Other Discharge Recommendations PT from therapists at [facility] and this clinician thinks they might need an outpatient referral to see pt Transportation Needs at Discharge Private Vehicle,Wheelchair/ Cabulance
--- NOTE | 2023-11-22 14:04 | OT.IP.EVAL ---
Current Diagnoses Acute on chronic systolic (congestive) heart failure (11/20/23) Past Medical History (Last Updated 11/22/23 @ 08:21 by Charles Castaneda MD) Cervical spondylosis Chronic back pain Chronic Sergey lesion (02/16/17) Chronic neck pain Chronic renal failure, stage 3a Chronic systolic (congestive) heart failure Closed L1 vertebral fracture 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) Essential hypertension Glaucoma (~11/2016) Hiatal hernia (07/03/11) History of duodenal ulcer History of gastrointestinal hemorrhage Idiopathic scoliosis (07/03/11) Lumbar spondylosis Myofascial pain Osteoporosis 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 Pt lives in I living at [facility] and it is an accessible building and apartment, elevator Home Environment Standard Height Toilet,Walk in Shower,Elevator Home Equipment Four Wheel Walker,Raised Toilet Seat w/Armrests,Shower Seat with Backrest,Hand Held Shower,Grab Bars In Shower Employment Status Retired Additional Social History Comment Accessible apartment and BR at [facility], flat bed and no bed rails M2 OT-IP Current Condition Start: 11/22/23 14:10 Freq: Status: Active Protocol: Document 11/22/23 14:11 CGR (Rec: 11/22/23 14:28 CGR [id number]) Occupational Therapy Current Condition Current Condition Evaluation Date 11/22/23 Treatment Diagnosis Hypoxia, chronic CHF Diagnosis Onset Date 11/20/23 M3 OT- IP Subjective and Pain Start: 11/22/23 14:10 Freq: Status: Active Protocol: Document 11/22/23 14:11 CGR (Rec: 11/22/23 14:28 CGR [id number]) OT- Subjective Occupational Therapy Visit Type Type Initial Evaluation Visit Start Time 13:35 Visit Stop Time 14:04 OT Pain Assessment Pain When Pain Assessed At Rest Pain Present Pain Present Pain Reported Location Bilateral Lower Back Intensity 4 Scale Used Numeric (0 - 10) Management Techniques Modification of Treatment,Re- positioning M4 OT- IP ADL's Start: 11/22/23 14:10 Freq: Status: Active Protocol: Document 11/22/23 14:11 CGR (Rec: 11/22/23 14:28 CGR [id number]) OT [id number] Comments OT Self-Feeding Comments Not meal time OT ADL-Grooming General Evaluation Grooming Ability Independent Areas Needing Assistance Retrieving/Set-up of Grooming Items,Face Washing Comments OT Grooming Comments standing at sink OT ADL-Oral Care General Eval Oral Care Ability Independent Areas of Assistance Brushing Teeth,Retrieving/Set- Up of Items Comments Oral Care Comments standing at sink OT ADL-Dressing General Eval Lower Body Dressing Ability Independent Areas Needing Assistance Socks Comments OT Dressing Comments Pt demonstrated doffing and donning socks. O2 stats dropped to 89 during this time but returned to 94% after sitting upright. OT ADL-Toileting General Evaluation Toileting Ability Standby Assistance Comments OT Toileting Comments seated on toilet, pt simulated as pt with harini at this time . OT ADL-Bathing Comments OT Bathing Comments Not performed, pt states that she performed with nursing this AM. M5 OT- IP IADL's Start: 11/22/23 14:10 Freq: Status: Active Protocol: Document 11/22/23 14:11 CGR (Rec: 11/22/23 14:28 CGR [id number]) OT-Instrumental Activities of Daily Living Deficits IADL Deficits Identified No Deficits Home Safety Awareness Awareness of Need for Assistance at Home Good Awareness Ability to Problem Solve Emergency Able to Problem Solve Situations Medication Management Medication Management No Deficits Identified Money Management Money Management No Deficits Identified Meal Preparation Meal Preparation Caregiver Provides Assist Simulation Developer Simulation Developer Caregiver Provides Assist Driving Driving Comments Pt states that she is still currently driving but that she plans to give her car to her granddaughter when her granddaughter goes to college in fall [address] after that. M6 OT- IP Functional Cognition Start: 11/22/23 14:10 Freq: Status: Active Protocol: Document 11/22/23 14:11 CGR (Rec: 11/22/23 14:28 CGR [id number]) Cognitive Factors Limiting Selfcare Function Cognitive Ability Level of Alertness Alert Patient Orientation Name,Age,Birthday,Month,Date, Year,Day of Week,Place, Situation Attention Span Ability Capable of Focused Attention, Capable of Sustained Attention OT- Vision and Hearing OT- Hearing Assessment OT- Hearing Assessment WFL OT- Vision Assessment Visual Acuity Glasses For Reading Visual Attentiveness WFL Occular Pursuits WFL Visual Convergence WFL M7 OT- IP Mobility and Balance Start: 11/22/23 14:10 Freq: Status: Active Protocol: Document 11/22/23 14:11 CGR (Rec: 11/22/23 14:28 CGR [id number]) OT-Transfer Assessment Sit to and From Stand Sit to and from Stand Standby Assistance Transfers Transfer Ability Standby Assistance Technique Transfer Destination Chair,Toilet Transfer Technique Stand Step Pivot Devices Transfer Assistive Devices Gait Belt,Front Wheeled Walker Comments Mobility Comments Pt ambulated around the room with SBA using the walker but states that she prefers her 4ww. Pt's standard size walker was exchanged for a shorter walker that fits the pt better . OT- Gait Assessment Gait Gait Assistance Required: Standby Assistance Assistive Devices Assistive Device Gait Belt,Front Wheeled Walker OT- Balance Assessment Sitting Balance and Reactions Static Sitting Balance Ability Normal Dynamic Sitting Balance Ability Good M8 OT- IP Objective Assessments Start: 11/22/23 14:10 Freq: Status: Active Protocol: Document 11/22/23 14:11 CGR (Rec: 11/22/23 14:28 CGR [id number]) OT Gross Range of Motion Upper Extremity Range of Motion Assessment Within Functional Limits OT Strength Upper Extremity Strength Assessment Within Functional Limits Comments Strength Comments grossly 4/5 throughout OT- Coordination Assessment Upper Extremity Finger to Nose Test Within Functional Limits Finger Tapping Test Within Functional Limits OT-Muscle Tone Assessment Muscle Tone WNL Yes OT Sensation Assessment Edema Edema Absent M9 OT- IP Assessment and Plan Start: 11/22/23 14:10 Freq: Status: Active Protocol: Document 11/22/23 14:11 CGR (Rec: 11/22/23 14:28 CGR [id number]) OT Summary Assessment and Plan Potential Rehabilitation Potential Excellent Analytic Complexity at Evaluation Low Summary OT Impairments Pain,Balance,Functional Mobility,Dressing,Bathing, Activity Tolerance Progress Towards Goals Progressing Toward Goals Assessment Summary Pt presents as a low complexity evaluation s/p admit for hypoxia. Pt is progressing with therapy and appears to be close to her baseline for ADLs except that she is hypoxic. Pt destated to 89% with donning socks but then returned to 94 with breathing techniques. Pt stated 93% during standing activity at the sink all on 1L O2 NC. Pt will continue to benefit from 1-2 more sessions to address activity tolerance . Goals Dressing Goal Independent Bathing Goal Independent Shower Transfer Goal Independent Patient/Caregiver Education Goal Demonstrate Energy Conservation and Pacing Days to Meet Goals 2 Frequency of Treatment Frequency Of Treatment Once a Day Treatment Plan OT Treatment Plan ADL Training,Functional Mobility,Patient/Family Education,Discharge Planning Other Treatment Recommendations and Next Energy conservation. Treatment Focus Discharge Recommendations OT Discharge Recommendations Home Transportation Needs at Discharge Private Vehicle
[2023-11-22] MEDS: GABAPENTIN 300 MG CAPSULE PO (22:08)
[2023-11-22] MEDS: NYSTATIN POWDER 15GM 1 APPLIC TOP (22:09)
[2023-11-23] VITALS (10 sets, daily range): BP systolic 103–144; BP diastolic 58–69; PULSE 60–70; RESP 16–20; TEMP 35.9–37.2; O2SAT 87–97
[2023-11-23 06:20] LABS: BUN Creatinine Ratio 46.1 (6-22); Blood Urea Nitrogen 35 mg/dL (7-17); Calcium 9.4 mg/dL (8.4-10.2); Chloride 97 mmol/L (98-107); Estimated Glomerular Filt Rate > 60 mL/min (>60); Glucose 108 mg/dL (80-110); HEMOLYSIS 17 (0-50); Magnesium 2.1 mg/dL (1.6-2.3); Potassium 4.1 mmol/L (3.4-5.1); Sodium 141 mmol/L (137-145)
[2023-11-23 06:26] LABS: Carbon Dioxide 37 mmol/L (22-32)
[2023-11-23] MEDS: PANTOPRAZOLE DR 40 MG TABLET PO (06:27)
--- NOTE | 2023-11-23 07:51 | P.PN_ITS ---
Subjective Subjective Date Patient Seen: 11/23/23 Time Patient Seen: 07:51 Interval history: Patient without really any complaints Oxygen saturation on 1 L is okay with activity does dropped to about 92%. Off of oxygen she hovers around 88-90% at rest and lower than that with activity although does recover fairly quickly She lives at a assisted community where she has an apartment at the end of the cord or and has to walk back and forth she estimates maybe 2 blocks to get to meals Exam Vital Signs (past 8 hours): - 11/23/23 00:00 11/23/23 04:00 Temperature 96.7 F L 98.4 F Pulse Rate 69 70 Respiratory Rate 16 16 Blood Pressure 123/58 L 144/69 H Pulse Oximetry 97 95 Oxygen Flow Rate 2 0 Fraction of Inspired Oxygen 24 SaO2/FiO2 Ratio 391 Oxygen Delivery Method Nasal Cannula Oxygen Flow Rate 0 Objective Labs 11/21/23 05:50 11/23/23 05:40 Labs: Laboratory Results - last 24 hr 11/23/23 05:40 Sodium 141 Potassium 4.1 Chloride 97 L Carbon Dioxide 37 H BUN 35 H Creatinine 0.76 Estimated GFR > 60 BUN/Creatinine Ratio 46.1 H Glucose 108 Calcium 9.4 Magnesium 2.1 PFSH Medical History (Updated 11/23/23 @ 00:00 by ) Myofascial pain Lumbar spondylosis Closed L1 vertebral fracture Cervical spondylosis Chronic neck pain Uncomplicated opioid dependence Chronic renal failure, stage 3a Chronic systolic (congestive) heart failure Glaucoma (~11/2016) Osteoporosis 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) History of duodenal ulcer History of gastrointestinal hemorrhage Essential hypertension Idiopathic scoliosis (07/03/11) Hiatal hernia (07/03/11) Chronic back pain Status post nephrectomy Social History marital status: number of children: 2 household members: none lives independently: Yes caregiver/support person: Yes housing: house pets and animals: Yes education level: college (3 years) occupational status: other (Retired) 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 Acute on chronic congestive heart failure based on reduced left ventricular function-patient with probably adequate response to parental furosemide yesterday. I discontinued her Milian catheter to increase her activity and lower her risk. I am okay with her switching to oral furosemide today. Her oxygen level is somewhat concerning though. She was right on the borderline of benefitting from home oxygen therapy verses maybe another 24 hours in the hospital with the additional diuresis might get her there without needing home oxygen etcetera. For now will initiate home oxygen therapy evaluation and probably keep her here in the hospital another 24 hours with discharge tomorrow either with home O2 or off of O2 altogether 2. Hypertension-continue patient's current meds. Blood pressure numbers a bit better. No changes today 3. History of GI bleed with duodenal ulcer and Sergey lesions, etcetera-no evidence of active bleeding. 4. History of nephrectomy-continue monitor renal function carefully with ongoing diuresis. Labs this morning do not demonstrate any concerns. Electrolytes okay renal function stable Overall patient is much improved and probably okay to be discharged in the next 24 hours, back to [facility]. Quality VTE Deep Vein Thrombosis/Pulmonary Embolism Present on Admission: No IH PROFEE Charge codes Subsequent inpatient/observation care: [id number]
[2023-11-23] MEDS: METOPROLOL ER 50 MG TABLET PO ×2 (09:16→21:27)
[2023-11-23] MEDS: GABAPENTIN 600 MG TABLET PO ×3 (09:18→21:26)
[2023-11-23] MEDS: DOCUSATE 100 MG CAPSULE PO (09:18)
[2023-11-23] MEDS: FERROUS SULFATE 325 MG TABLET PO (09:18)
[2023-11-23] MEDS: FUROSEMIDE 20 MG TABLET 40 MG PO (09:18)
[2023-11-23] MEDS: ENOXAPARIN 40 MG/0.4 ML SYRINGE SUBCUT (09:18)
[2023-11-23] MEDS: NYSTATIN CREAM 30 GM 1 APPLIC TOP ×2 (09:20→21:53)
[2023-11-23] MEDS: SACUBITRIL VALSARTAN 1 EACH PO ×2 (09:21→21:28)
[2023-11-23] MEDS: SODIUM CHLORIDE 0.9% FLUSH 10 ML IV ×2 (09:21→21:29)
--- NOTE | 2023-11-23 13:20 | PT.IPTN ---
Current Diagnoses Acute on chronic systolic (congestive) heart failure (11/20/23) Physical Therapy Treatment Note M2 PT-IP Current Condition Start: 11/21/23 09:22 Freq: NEEDED Status: Active Protocol: Document 11/21/23 13:23 MB (Rec: 11/21/23 14:05 MB [id number]) Physical Therapy Current Condition Current Condition Evaluation Date 11/21/23 Treatment Diagnosis SOB M3 PT-IP Subjective Start: 11/21/23 09:22 Freq: NEEDED Status: Active Protocol: Document 11/23/23 14:00 TS (Rec: 11/23/23 14:10 TS [id number]) Subjective Physical Therapy Visit Type Type Treatment Note Visit Start Time 13:20 Visit Stop Time 13:50 Number of COMMAND POST SUPERINTENDENT Visits 1 Physical Therapy Visit Comments Patient Comments Pt found resting in chair, is agreeable to PT. M4 PT-IP Mobility and Gait Start: 11/21/23 09:22 Freq: NEEDED Status: Active Protocol: Document 11/23/23 14:00 TS (Rec: 11/23/23 14:10 TS [id number]) PT-Transfer Assessment Sit to and From Stand Sit to and from Stand Standby Assistance,Use of Upper Extremities Equipment Transfer Assistive Device Gait Belt,Front Wheeled Walker Orthotic/Prosthetic Devices or Brace: No Comments Mobility Comments Pt found resting on 1L of o2, Spo2 95%. STS from chir SBA with slow movement and cues for pushing from arms of chair . She ambulated ~150'SBA with FWW and slow stpe thru gait, pt denied SOB or lightheadedness. Pt ambulated back to room, Spo2 92% on 1L. pt was left in chair, all needs met. Gait Assessment Gait Gait Assistance Required: Standby Assistance Distance (Feet) 150 Able to Maintain Weight Bearing Status Yes During Gait Assistive Devices Assistive Device Gait Belt,Front Wheeled Walker Orthotic/Prosthetic Devices or Brace: No Gait Deviations General Gait Pattern Decreased Stride Length, Decreased Feet Clearance, Flexed Trunk Factors Limiting Gait Function Factors Limiting Gait Function Decreased Activity Tolerance, Limited Range of Motion,Poor Balance Comments Gait Comments See mobility comments PT-Balance Assessment Sitting Balance and Reactions Static Sitting Balance Ability Normal Dynamic Sitting Balance Ability Good Standing Balance and Reactions Static Standing Balance Ability Good Dynamic Standing Balance Ability Good Device Used Rollator M5 PT-IP Objective Assessments Start: 11/21/23 09:22 Freq: NEEDED Status: Active Protocol: Document 11/21/23 13:23 MB (Rec: 11/21/23 14:05 MB [id number]) Orientation Orientation/Cognition Level of Alertness Alert Orientation Name,Age,Birthday,Month,Date, Year,Day of Week,Place, Situation Language Function Ability No Deficits Noted Safety Awareness Understands Safety Issues Memory Description No Deficits Noted Gross Range of Motion Upper Extremity ROM Assessment Within Functional Limits Lower Extremity ROM Assessment Within Functional Limits Strength Upper Extremity Strength Assessment Within Functional Limits Lower Extremity Strength Assessment Within Functional Limits Comments Strength Comments Strength and range are functional though pt has postural changes from scoliosis that affect pelvic alignment and pt with pelvic obliquities and functional leg length difference with mobility M6 PT-IP Treatment Start: 11/21/23 09:22 Freq: NEEDED Status: Active Protocol: Document 11/23/23 14:00 TS (Rec: 11/23/23 14:10 TS [id number]) Physical Therapy Treatment Education Education Provided Safety M7 PT-IP Assessment and Plan Start: 11/21/23 09:22 Freq: NEEDED Status: Active Protocol: Document 11/23/23 14:00 TS (Rec: 11/23/23 14:10 TS [id number]) PT Summary Assessment and Plan Potential Rehabilitation Potential Good Summary Impairments ROM,Balance,Transfers,Gait, Activity Tolerance Progress Towards Goals Progressing Toward Goals Assessment Summary Fadumo continues to make progress with her mobility. She is SBA for STS with use of FWW. She progressed her gait to ~150'SBA with FWW, she had no buckling or LOB and denied SOB. Her o2 remained in mid to low 90's throughout session on 1L of o2. PT is recommending pt return home with assist. Goals Transfer Goal Independent,Front Wheeled Walker,Four Wheeled Walker Gait Goal Independent,Front Wheel Walker ,Four Wheel Walker Gait Distance 75 Days to Meet Goals 3 Frequency of Treatment Frequency Of Treatment Once a Day Treatment Plan Physical Therapy Treatment Plan Transfer Training,Gait Training,Therapeutic Exercise, Balance Retraining,Discharge Planning,Hot or Cold Pack, Neuromuscular Re-ed,Manual Therapy Weight Bearing Status Weight Bearing Status Weight Bear as Tolerated Recommendations To Nursing Amount of Assist Needed Standby Assistance Discharge Recommendations PT Discharge Recommendations Home with Assistance, Outpatient PT Other Discharge Recommendations PT from therapists at [facility] and this clinician thinks they might need an outpatient referral to see pt Transportation Needs at Discharge Private Vehicle,Wheelchair/ Cabulance
--- NOTE | 2023-11-23 13:37 | CM.DPC ---
DCP Cont: Per MD, pt making improvements but still desatting and placed order for RT to assess for new home O2 and then pt can discharge back to [facility] today vs tomorrow. No further identified barriers to discharge. Per FORKLIFT MECHANIC, still recommending return to her independent apt with outpt PT. Plan: SW to follow for plan of discharge home today vs tomorrow likely via Dtr POV and outpt PT and potential for new home oxygen pending RT eval. Avani Ward MSW
--- NOTE | 2023-11-23 14:55 | OT.IP.TRT ---
Current Diagnoses Acute on chronic systolic (congestive) heart failure (11/20/23) Occupational Therapy Treatment Note M2 OT-IP Current Condition Start: 11/22/23 14:10 Freq: Status: Active Protocol: Document 11/22/23 14:11 CGR (Rec: 11/22/23 14:28 CGR [id number]) Occupational Therapy Current Condition Current Condition Evaluation Date 11/22/23 Treatment Diagnosis Hypoxia, chronic CHF Diagnosis Onset Date 11/20/23 M3 OT- IP Subjective and Pain Start: 11/22/23 14:10 Freq: Status: Active Protocol: Document 11/23/23 15:37 [facility] (Rec: 11/23/23 15:44 [facility] [id number]) OT- Subjective Occupational Therapy Visit Type Type Treatment Note Visit Start Time 14:40 Visit Stop Time 14:55 Occupational Therapy Visit Comments Patient Comments Pt wanting to get back to bed. Patient/Caregiver Goals TO go home. OT Pain Assessment Pain When Pain Assessed At Rest Pain Present Pain Present Pain Reported M4 OT- IP ADL's Start: 11/22/23 14:10 Freq: Status: Active Protocol: Document 11/23/23 15:37 [facility] (Rec: 11/23/23 15:44 [facility] [id number]) OT [id number] Comments OT Self-Feeding Comments Not meal time OT ADL-Grooming Comments OT Grooming Comments Not performed. OT ADL-Oral Care Comments Oral Care Comments Not performed. OT ADL-Dressing Comments OT Dressing Comments Not performed. OT ADL-Toileting Comments OT Toileting Comments Pt states just wanting to get back to bed. Suggested possibility of BSC pending on her activity tolerance and O2 cord management needs. M5 OT- IP IADL's Start: 11/22/23 14:10 Freq: Status: Active Protocol: Document 11/22/23 14:11 CGR (Rec: 11/22/23 14:28 CGR [id number]) OT-Instrumental Activities of Daily Living Deficits IADL Deficits Identified No Deficits Home Safety Awareness Awareness of Need for Assistance at Home Good Awareness Ability to Problem Solve Emergency Able to Problem Solve Situations Medication Management Medication Management No Deficits Identified Money Management Money Management No Deficits Identified Meal Preparation Meal Preparation Caregiver Provides Assist Mold Preparer Mold Preparer Caregiver Provides Assist Driving Driving Comments Pt states that she is still currently driving but that she plans to give her car to her granddaughter when her granddaughter goes to college in fall [address] after that. M6 OT- IP Functional Cognition Start: 11/22/23 14:10 Freq: Status: Active Protocol: Document 11/23/23 15:37 [facility] (Rec: 11/23/23 15:44 [facility] [id number]) Cognitive Factors Limiting Selfcare Function Cognitive Comments Cognitive Assessment Comments Pt able to follow commands for ADL and mobility needs. Pt states good understanding for energy conservation needs and to be sure to stop and rest before feeling tired. Suggested pt get an O2 monitor . M7 OT- IP Mobility and Balance Start: 11/22/23 14:10 Freq: Status: Active Protocol: Document 11/23/23 15:37 [facility] (Rec: 11/23/23 15:44 [facility] [id number]) OT-Transfer Assessment Sit to and From Stand Sit to and from Stand Standby Assistance Transfers Transfer Ability Standby Assistance Technique Transfer Destination Bed,Chair Transfer Technique Stand Step Pivot Devices Transfer Assistive Devices Gait Belt,Front Wheeled Walker Comments Mobility Comments Assist for O2 tubing otherwise SBA with FWW. OT- Balance Assessment Sitting Balance and Reactions Static Sitting Balance Ability Normal Dynamic Sitting Balance Ability Good Standing Balance and Reactions Static Standing Balance Ability Good Dynamic Standing Balance Ability Fair M8 OT- IP Objective Assessments Start: 11/22/23 14:10 Freq: Status: Active Protocol: Document 11/22/23 14:11 CGR (Rec: 11/22/23 14:28 CGR [id number]) OT Gross Range of Motion Upper Extremity Range of Motion Assessment Within Functional Limits OT Strength Upper Extremity Strength Assessment Within Functional Limits Comments Strength Comments grossly 4/5 throughout OT- Coordination Assessment Upper Extremity Finger to Nose Test Within Functional Limits Finger Tapping Test Within Functional Limits OT-Muscle Tone Assessment Muscle Tone WNL Yes OT Sensation Assessment Edema Edema Absent M9 OT- IP Assessment and Plan Start: 11/22/23 14:10 Freq: Status: Active Protocol: Document 11/23/23 15:37 [facility] (Rec: 11/23/23 15:44 [facility] [id number]) OT Summary Assessment and Plan Potential Rehabilitation Potential Excellent Analytic Complexity at Evaluation Low Summary OT Impairments Pain,Balance,Functional Mobility,Dressing,Bathing, Activity Tolerance Progress Towards Goals Slow Progress due to Activity Tolerance Assessment Summary Pt on 1L of O2 and drops to 89% after activity. Pt will benefit from assist at home and outpt PT and OT- pt states has services at [facility]. Otherwise pt will benefit from home health services. Goals Dressing Goal Independent Bathing Goal Independent Shower Transfer Goal Independent Days to Meet Goals 2 Frequency of Treatment Frequency Of Treatment Once a Day Treatment Plan OT Treatment Plan ADL Training,Functional Mobility,Patient/Family Education,Discharge Planning Discharge Recommendations OT Discharge Recommendations Home with Assistance, Outpatient PT versus home health Other Discharge Recommendations Pt states has PT and OT at her facility. Transportation Needs at Discharge Private Vehicle
[2023-11-23] MEDS: HYDROCODONE/ACET 5/325 TABLET 1 TAB PO (21:26)
[2023-11-23] MEDS: GABAPENTIN 300 MG CAPSULE PO (21:26)
[2023-11-23] MEDS: NYSTATIN POWDER 15GM 1 APPLIC TOP (21:29)
[2023-11-24 00:05] VITALS: BP 112/57; PULSE 67; RESP 19; TEMP 36.1; O2SAT 95
[2023-11-24 04:00] VITALS: BP 137/64; PULSE 62; RESP 19; TEMP 36.4; O2SAT 99
[2023-11-24] MEDS: PANTOPRAZOLE DR 40 MG TABLET PO (06:55)
[2023-11-24 08:00] VITALS: BP 113/56; PULSE 65; RESP 16; TEMP 36.6; O2SAT 93
--- NOTE | 2023-11-24 08:10 | PM.DS.1 ---
History of Present Illness History of Present Illness Date Patient Seen: 11/24/23 Time Patient Seen: 08:10 Chief complaint: sob Narrative: Patient presented to the emergency department on November 20, 2023 with progressive shortness of breath She was found to be in acute on chronic congestive heart failure and was admitted for treatment Discharge Providers Provider Date of admission: 11/20/23 12:56 Discharge Date: 11/24/23 Primary care physician: Charles Castaneda MD Consults: 11/20/23 12:56 Consult to Physician Stat Comment: Consulting Provider: Charles Castanead Reason for consultation: admission Has provider been notified: No Consult to Physician Stat Comment: Consulting Provider: Mariya Collins Reason for consultation: admission Has provider been notified: Yes 11/20/23 16:21 Consult to Discharge Planning Routine Comment: Consult to Occupational Therapy Evaluate & Treat Comment: Physician Instructions: Evaluate and treat Consult to Physical Therapy Evaluate & Treat Comment: Physician Instructions: Evaluate and Treat Discharge provider: Charles Castaneda MD Summary Hospital Course Discharge Diagnosis: 1. Acute on chronic congestive heart failure with reduced left ventricular ejection fraction 2. Acute respiratory failure secondary to congestive heart failure 3. Chronic renal failure stage 3 a 4. Osteoporosis 5. Chronic back pain and neck pain 6. Chronic opioid dependence, uncomplicated 7. Hypertension 8. History of nephrectomy Hospital Course: Patient was admitted to the hospital as above. With the application of oxygen and parental diuretic therapy with furosemide patient improved significantly from a subjective standpoint. She continued to improve a negative effect on her renal function with continue parental diuresis. This is subsequently switched to an oral diuresis with oral furosemide and patient continued to improve. If repeat echocardiography demonstrated a slight decline in overall left ventricular function which had been normalized with medication but now demonstrates an ejection fraction of about 45%. Patient required low-level oxygen replacement therapy for the majority of her hospitalization but in the 24-36 hours prior to discharge she was really without oxygen maintaining an oxygen saturation of 90-91% at rest. She did decline with activity but rapidly returned to 90+ oxygen saturation with rest. Therefore she was not felt to benefit from or qualify for home oxygen therapy Patient's other medications including her Entresto and antihypertensive therapy and chronic narcotics for chronic pain syndrome were continued without evidence of complication Exam Vital Signs (past 8 hours): - 11/24/23 04:00 11/24/23 08:00 Temperature 97.6 F 98 F Pulse Rate 62 65 Respiratory Rate 19 16 Blood Pressure 137/64 113/56 L Pulse Oximetry 99 93 Oxygen Flow Rate 0 1 Fraction of Inspired Oxygen 24 SaO2/FiO2 Ratio 391 Oxygen Delivery Method Nasal Cannula Oxygen Flow Rate 1 Objective Labs 11/21/23 05:50 11/23/23 05:40 [facility] Medical History Myofascial pain Lumbar spondylosis Closed L1 vertebral fracture Cervical spondylosis Chronic neck pain Uncomplicated opioid dependence Chronic renal failure, stage 3a Chronic systolic (congestive) heart failure Glaucoma (~11/2016) Osteoporosis 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) History of duodenal ulcer History of gastrointestinal hemorrhage Essential hypertension Idiopathic scoliosis (07/03/11) Hiatal hernia (07/03/11) Chronic back pain Status post nephrectomy Social History marital status: number of children: 2 household members: none lives independently: Yes caregiver/support person: Yes housing: house pets and animals: Yes education level: college (3 years) occupational status: other (Retired) 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 Castaneda Also will attempt to get her a sooner rather than later appointment with Cardiology for follow-up given this notable change in her left ventricular function resulting in this hospitalization Discharge Plan Discharge Plan Patient Disposition: Home Nursing Discharge Comment: Follow color coded heart failure instructions. Discharge orders & Medications Prescriptions: New furosemide 20 mg Tablet 40 mg PO DAILY Qty: 180 1RF Continued vitamin E 400 unit Capsule 400 unit PO DAILY Qty: 0 (DME) Disabled Parking Permit Qty: 1 0RF Rx Instructions: Patient qualifies for disabled parking as per the attached form. alendronate [Fosamax] 70 mg tablet 70 mg PO QWEEK Qty: 12 0RF Hold Instructions: dental procedures Rx Instructions: perscription is on hold d/t dental procedures metoprolol succinate 50 mg tablet extended release 24 hr 50 mg PO BID Qty: 180 3RF omeprazole 40 mg capsule,delayed release(DR/EC) 40 mg PO QDAY Qty: 90 3RF hydrocodone-acetaminophen 5-325 mg tablet 1 tab PO Q4H MDD 3 tabs PRN (Reason: pain) Qty: 90 0RF ferrous sulfate [Iron (ferrous sulfate)] 325 mg (65 mg iron) tablet 325 mg PO DAILY Entresto 24-26 mg tablet 1 tab PO BID gabapentin [Neurontin] 600 mg tablet 600 mg PO TID Qty: 270 3RF gabapentin 300 mg capsule 300 mg PO BEDTIME Qty: 30 2RF Follow up/Referrals: Charles Castaneda MD [Primary Care Provider] - 2 Weeks Pantera Castano MD [Physician] - 2 Weeks (worsening cardiomyopathy) Discharge Health Status Multidrug resistant organism: No MDRO Diet/Activity/Treatments Diet: Diet as Tolerated and Low-sodium Oxygen: No Oxygen necessary Visit Report/Discharge Packet Instructions: DI for Heart Failure Stand Alone Forms: Congestive Heart Failure, Patient Portal/API Discharge Data Primary Care Provider: Charles Castaneda Quality VTE Deep Vein Thrombosis/Pulmonary Embolism Present on Admission: No IH PROFEE Charge Codes Discharge inpatient/observation: 27112
--- NOTE | 2023-11-24 09:21 | CM.DPC ---
DCP Cont. Reviewed EMR and team rounds for status updates. Pt has been medically cleared for home d/c today, her dtr will transport her home. No further DCP needs identified at this time.
[2023-11-24] MEDS: FUROSEMIDE 20 MG TABLET 40 MG PO (09:42)
[2023-11-24] MEDS: FERROUS SULFATE 325 MG TABLET PO (09:42)
[2023-11-24] MEDS: ENOXAPARIN 40 MG/0.4 ML SYRINGE SUBCUT (09:43)
[2023-11-24] MEDS: METOPROLOL ER 50 MG TABLET PO (09:43)
[2023-11-24] MEDS: GABAPENTIN 600 MG TABLET PO (09:43)
[2023-11-24] MEDS: SACUBITRIL VALSARTAN 1 EACH PO (11:49)
[2023-11-24] MEDS: NYSTATIN CREAM 30 GM 1 APPLIC TOP (11:49)
--- NOTE | 2023-11-24 13:31 | PC.NURSE ---
Discharge: Pt feels ready to go home. She reports she is breathing easier. RT came to eval if home O2 was needed. It is not. Dtr here at time of teaching. Rx has been esent. Follow up appointments made. Reviewed d/c packet, given colored heart failure sheet, discussed its use and the importance of weighing self daily and if weight goes up to call MD even if she doesn't feel sick. Questions answered. Pt d/c to home via auto with dtr.
== END 2023-11-24 13:35 | disposition home or self-care (01) | DRG 291 ==
LOC: ED 11:18 → AC 13:58
PROVIDERS: Family Medicine; Admitting Provider Internal Medicine; Emergency Provider Emergency Medicine; PCP Internal Medicine; Referring Provider Emergency Medicine; Visit Provider Internal Medicine
DX: I13.0 Hypertensive heart and chronic kidney disease with heart failure and stage 1 through stage 4 chronic kidney disease, or unspecified chronic kidney disease (principal); I50.23 Acute on chronic systolic (congestive) heart failure; J96.01 Acute respiratory failure with hypoxia; F11.20 Opioid dependence, uncomplicated; N18.31 Chronic kidney disease, stage 3a; M54.9 Dorsalgia, unspecified; M54.2 Cervicalgia; M81.0 Age-related osteoporosis without current pathological fracture; G89.4 Chronic pain syndrome; Z90.5 Acquired absence of kidney; Z87.19 Personal history of other diseases of the digestive system; Z66 Do not resuscitate; Z87.891 Personal history of nicotine dependence
CPT/HCPCS: 36415; 71045; 80048; 80053; 81001; 82550; 83605; 83690; 83735; 83880; 84145; 84484; 85025; 87633; 93005; 93306; 94618; 94760; 94762; 96365; 97116; 97161; 97165; 97530; 97535; 99284; 99285; J1650; J1940

== ENCOUNTER → 2023-11-30 14:30 | Outpatient (CLI) | payer MEDICARE, SELFPAY ==
[2023-11-30 14:21] VITALS: BMI 25.7
[2023-11-30 15:24] LABS: BUN Creatinine Ratio 50.5 (6-22); Blood Urea Nitrogen 51 mg/dL (7-17); Calcium 9.5 mg/dL (8.4-10.2); Carbon Dioxide 35 mmol/L (22-32); Chloride 103 mmol/L (98-107); Estimated Glomerular Filt Rate 55 mL/min (>60); Glucose 97 mg/dL (80-110); HEMOLYSIS 46 (0-50); Magnesium 2.2 mg/dL (1.6-2.3); Potassium 4.9 mmol/L (3.4-5.1); Sodium 142 mmol/L (137-145)
== END ==
PROVIDERS: PCP Internal Medicine; Referring Provider Internal Medicine; Visit Provider Internal Medicine
DX: J81.1 Chronic pulmonary edema (principal); N18.31 Chronic kidney disease, stage 3a
CPT/HCPCS: 36415; 80048; 83735

== ENCOUNTER → 2023-12-14 10:45 | Outpatient (CLI) | payer MEDICARE, SELFPAY ==
[2023-11-30 14:21] VITALS: BMI 25.7
[2023-12-14 13:05] LABS: BUN Creatinine Ratio 19.6 (6-22); Blood Urea Nitrogen 20 mg/dL (7-17); Calcium 8.7 mg/dL (8.4-10.2); Carbon Dioxide 35 mmol/L (22-32); Chloride 103 mmol/L (98-107); Estimated Glomerular Filt Rate 54 mL/min (>60); Glucose 88 mg/dL (80-110); HEMOLYSIS < 15 (0-50); Potassium 4.7 mmol/L (3.4-5.1); Sodium 142 mmol/L (137-145)
== END ==
LOC: LAB 10:45
PROVIDERS: PCP Internal Medicine; Referring Provider Nurse Practitioner; Visit Provider Nurse Practitioner
DX: I50.22 Chronic systolic (congestive) heart failure (principal)
CPT/HCPCS: 36415; 80048

== ENCOUNTER 2024-03-24 14:27 | Emergency (ER) | payer MEDICARE, SELFPAY ==
[2023-11-30 14:21] VITALS: BMI 25.7
[2024-03-24 14:30] VITALS: BP 146/85; PULSE 87; RESP 16; TEMP 36.7; O2SAT 94; BMI 27.4
--- NOTE | 2024-03-24 14:39 | DI.US.S_ITS ---
PROCEDURE: US PERIPH VENOUS LOW EXTREM LT INDICATIONS: L knee red hot swollen TECHNIQUE: Real-time imaging, as well as color and pulse Doppler interrogation, were performed of the lower extremity deep veins from the inguinal ligament to the popliteal fossa, with documentation of the visualized calf veins. COMPARISON: None. FINDINGS: The common femoral, femoral, popliteal, and the visualized calf veins are normally compressible, and free of intraluminal thrombus. Color and pulse Doppler demonstrate normal phasic intraluminal flow. There is normal augmentation response to distal compression maneuver. IMPRESSION: No findings of lower extremity deep venous thrombosis. Dictated by: Jeffry Padilla M.D. on 03/24/2024 at 15:42 Approved by: Jeffry Padilla M.D. on 03/24/2024 at 15:43
[2024-03-24 15:07] LABS: Add Manual Diff / Slide Review NO; Basophils Absolute Auto 0 /uL (0-100); Basophils Percent Auto 0.6 % (0-2); Eosinophils Absolute Auto 100 /uL (0-450); Eosinophils Percent Auto 1.9 % (2-4); Hematocrit 38.3 % (36-46); Hemoglobin 12.2 g/dL (12.0-16.0); Lymphocytes Absolute Auto 900 /uL (1100-4500); Lymphocytes Percent Auto 16.7 % (25-40); Mean Corpuscular HGB Conc 31.7 % (30-36); Mean Corpuscular Hemoglobin 31.4 PG (26-34); Mean Corpuscular Volume 98.9 fL (80-100); Monocytes Absolute Auto 400 /uL (0-900); Monocytes Percent Auto 8.5 % (3-14); Neutrophils Absolute Auto 3800 /uL (1500-7000); Neutrophils Percent Auto 72.3 % (50-75); Platelet Count 204 X10^3/uL (150-400); Red Blood Cell Count 3.88 X10^6/uL (4.0-5.2); Red Cell Distribution Width 14.5 % (11.6-14.8); White Blood Cell Count 5.3 X10^3/uL (4.5-11.0)
[2024-03-24 15:31] LABS: Alanine Aminotransferase 23 IU/L (<35); Albumin 3.8 g/dL (3.5-5.0); Albumin Globulin Ratio 1.2 (1.0-2.8); Alkaline Phosphatase 73 U/L (38-126); Aspartate Aminotransferase 23 IU/L (14-36); BUN Creatinine Ratio 25.6 (6-22); Bilirubin Total 0.5 mg/dL (0.2-1.3); Blood Urea Nitrogen 20 mg/dL (7-17); C-Reactive Protein Quant 0.8 mg/dL (<1.0); Calcium 9.4 mg/dL (8.4-10.2); Carbon Dioxide 34 mmol/L (22-32); Chloride 101 mmol/L (98-107); Estimated Glomerular Filt Rate > 60 mL/min (>60); Globulin 3.2 g/dL (1.7-4.1); Glucose 92 mg/dL (80-110); HEMOLYSIS < 15 (0-50); Potassium 4.7 mmol/L (3.4-5.1); Sodium 139 mmol/L (137-145)
[2024-03-24 15:48] LABS: Erythrocyte Sedimentation Rate 18 MM/HR (0-20)
--- NOTE | 2024-03-24 19:03 | ED.EXTPRO ---
HPI - Extremity Problem General Chief complaint: Extremity Problem,Nontraumatic Stated complaint: leg swelling and px Time Seen by Provider: 03/24/24 17:58 Source: patient Mode of arrival: Wheelchair Limitations: no limitations History of Present Illness HPI Narrative: 83-year-old female who is here for evaluation of leg pain and swelling and redness and warmth. She states that both of her legs her but it is her left leg that is red and swollen. She uses a walker at baseline but states she is difficulty walking because of the discomfort. She did not fall. No fevers. She stated that she thought that it started after she sat in a folding chair at a [facility] service several days ago. She did not think that she did anything specific during the time but it was after sitting in the chair when the discomfort started. She denies chest pain or shortness of breath. She does have a history of heart failure. She denies fevers. Related Data Home Medications Medication Instructions Recorded Confirmed vitamin E 268 mg (400 unit) capsule 400 unit PO DAILY ##0 07/08/11 03/07/24 ferrous sulfate 325 mg (65 mg 325 mg PO DAILY 10/13/18 03/07/24 iron) tablet (Iron (ferrous sulfate)) sacubitril 49 mg-valsartan 51 mg 1 tab PO BID 01/04/24 03/07/24 tablet (Entresto) Previous Rx's Medication Instructions Recorded alendronate 70 mg tablet (Fosamax) 70 mg PO QWEEK #12 tabs 08/10/22 gabapentin 600 mg tablet 600 mg PO TID #270 tabs 06/07/23 (Neurontin) omeprazole 40 mg capsule,delayed 40 mg PO QDAY #90 caps 08/17/23 release gabapentin 300 mg capsule 300 mg PO BEDTIME #30 caps 11/11/23 Disabled Parking Permit #1 ea 01/04/24 furosemide 20 mg tablet 20 mg PO DAILY #180 tabs 01/04/24 nystatin 100,000 unit/gram topical 1 applic topical BID #30 grams 01/04/24 cream metoprolol succinate 50 mg 50 mg PO BID #180 tabs 03/06/24 tablet,extended release 24 hr hydrocodone 5 mg-acetaminophen 325 1 tab PO Q4H PRN pain #90 tabs 03/07/24 mg tablet hydrocodone 5 mg-acetaminophen 325 1 tab PO Q4H PRN pain #90 tabs 03/07/24 mg tablet hydrocodone 5 mg-acetaminophen 325 1 tab PO Q4H PRN pain #90 tabs 03/07/24 mg tablet nystatin 100,000 unit/gram topical 1 applic topical TID #60 grams 03/07/24 powder cephalexin 500 mg capsule 500 mg PO QID 7 days #28 caps 03/24/24 Allergies Allergy/AdvReac Type Severity Reaction Status Date / Time duloxetine AdvReac Intermediate Drowsy Verified 03/07/24 15:39 morphine AdvReac Intermediate mental Verified 03/07/24 15:39 status changes Review of Systems Review of Systems ROS Unobtainable: All systems reviewed & are unremarkable except as noted in HPI and below Patient History Medical History Left hip pain Greater trochanteric bursitis of left hip Myofascial pain Lumbar spondylosis Closed L1 vertebral fracture Cervical spondylosis Chronic neck pain Uncomplicated opioid dependence Chronic renal failure, stage 3a Chronic systolic (congestive) heart failure Glaucoma (~11/2016) Osteoporosis 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) History of duodenal ulcer History of gastrointestinal hemorrhage Essential hypertension Idiopathic scoliosis (07/03/11) Hiatal hernia (07/03/11) Chronic back pain Status post nephrectomy Social History marital status: number of children: 2 household members: none lives independently: Yes caregiver/support person: Yes housing: house pets and animals: Yes education level: college occupational status: other 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: [employer] travel history: other leisure activities: reading and other Smoking Status: Former smoker Tobacco: How many years used: 8 Smokeless tobacco user: other quit status: quit date established second hand exposure: No alcohol intake: current substance use type: does not use Smoking Status: Former smoker alcohol intake frequency: a few times a week Substance Use Type: does not use Exam Initial Vital Signs Initial Vital Signs: Vital Signs Temperature 98.1 F 03/24/24 14:30 Pulse Rate 87 03/24/24 14:30 Respiratory Rate 16 03/24/24 14:30 Blood Pressure 146/85 H 03/24/24 14:30 Pulse Oximetry 94 03/24/24 14:30 Oxygen Delivery Method Room Air 03/24/24 14:30 Const General: cooperative, comfortable and No ill appearing HENAK Head: normal to inspection and normocephalic Resp Effort & Inspection: normal respiratory effort Auscultation: clear to auscultation bilaterally Cardio Rate: regular rate Rhythm: regular rhythm Skin Other: Patient with chronic venous stasis changes in both lower extremities. Lichenification of the skin. Does have some redness along the medial upper aspect of the right lower extremity around the knee. It is warm to the touch. No vesicles. No pustules. Neuro General: patient alert, patient awake, patient oriented x3 and moves all extremities Extrem General: edema Course Orders Ordered: Discontinued Medications Hydrocodone Bitart/Acetaminophen (Hydrocodone/Acet 5/325 Tablet) 1 tab PO NOW ONE Stop: 03/24/24 19:04 Last Admin: 03/24/24 19:12 Dose: 1 tab Documented By: GAGE Cephalexin HCl (Cephalexin 250 Mg Capsule) 500 mg PO NOW ONE Stop: 03/24/24 19:04 Last Admin: 03/24/24 19:12 Dose: 500 mg Documented By: GAGE Vital Signs Vital signs: Vital Signs - 8 hr 03/24/24 19:57 03/24/24 19:59 Temperature 97.2 F L Pulse Rate 88 88 Respiratory Rate 16 16 Blood Pressure 176/98 H 176/98 H Pulse Oximetry 90 L 90 L Oxygen Delivery Method Room Air Room Air MDM - Extremity (Nontraumatic) Lab Data 03/24/24 14:55 03/24/24 14:55 Labs: Lab Results 03/24/24 Range/Units 14:55 WBC 5.3 (4.5-11.0) X10^3/uL RBC 3.88 L (4.0-5.2) X10^6/uL Hgb 12.2 (12.0-16.0) g/dL Hct 38.3 (36-46) % MCV 98.9 (80-100) fL MCH 31.4 (26-34) PG MCHC 31.7 (30-36) % RDW 14.5 (11.6-14.8) % Plt Count 204 (150-400) X10^3/uL Neut % (Auto) 72.3 (50-75) % Lymph % (Auto) 16.7 L (25-40) % Bracken % (Auto) 8.5 (3-14) % Eos % (Auto) 1.9 L (2-4) % Baso % (Auto) 0.6 (0-2) % Neut # (Auto) 3800 (6294-8834) /uL Lymph # (Auto) 900 L (5245-0744) /uL Bracken # (Auto) 400 (0-900) /uL Eos # (Auto) 100 (0-450) /uL Baso # (Auto) 0 (0-100) /uL ESR 18 (0-20) MM/HR Sodium 139 (137-145) mmol/L Potassium 4.7 (3.4-5.1) mmol/L Chloride 101 (98-107) mmol/L Carbon Dioxide 34 H (22-32) mmol/L BUN 20 H (7-17) mg/dL Creatinine 0.78 (0.52-1.04) mg/dL Estimated GFR > 60 (>60) mL/min BUN/Creatinine Ratio 25.6 H (6-22) Glucose 92 (80-110) mg/dL Calcium 9.4 (8.4-10.2) mg/dL Total Bilirubin 0.5 (0.2-1.3) mg/dL AST 23 (14-36) IU/L ALT 23 (<35) IU/L Alkaline Phosphatase 73 (38-126) U/L C-Reactive Protein 0.8 (<1.0) mg/dL Total Protein 7.0 (6.3-8.2) g/dL Albumin 3.8 (3.5-5.0) g/dL Globulin 3.2 (1.7-4.1) g/dL Albumin/Globulin Ratio 1.2 (1.0-2.8) Imaging Data US - DVT: Radiologist's Impression: PROCEDURE: US PERIPH VENOUS LOW EXTREM LT INDICATIONS: L knee red hot swollen TECHNIQUE: Real-time imaging, as well as color and pulse Doppler interrogation, were performed of the lower extremity deep veins from the inguinal ligament to the popliteal fossa, with documentation of the visualized calf veins. COMPARISON: None. FINDINGS: The common femoral, femoral, popliteal, and the visualized calf veins are normally compressible, and free of intraluminal thrombus. Color and pulse Doppler demonstrate normal phasic intraluminal flow. There is normal augmentation response to distal compression maneuver. IMPRESSION: No findings of lower extremity deep venous thrombosis. MDM Narrative Medical decision making narrative: Patient was not clinically in heart failure. Ultrasounds negative for DVT. She does have chronic venous stasis changes in her bilateral lower extremities which does cause her to have an increase risk of cellulitis. She does have redness and warmth to the medial aspect of the right knee. Low suspicion for septic joint. Plan will be to start her on antibiotics for presumed cellulitis. Patient was able to stand and take steps with a walker. She does have a wheelchair at home. Will discharge patient home with return precautions. She expressed understanding and agreement with plan. Discharge Plan Departure Patient Disposition: Home Clinical Impression: Cellulitis, Leg pain Instructions: DI for Cellulitis -- Adult Activity Restrictions/Additional Instructions: I recommend that you take the antibiotics as directed. You can continue to take your pain medication as needed. Use your walker like normal. Contact your primary doctor for a follow-up. Return to the emergency department for new or worsening symptoms. Prescriptions: New cephalexin 500 mg capsule 500 mg PO QID 7 Days Qty: 28 0RF No Action vitamin E 400 unit Capsule 400 unit PO DAILY Qty: 0 alendronate [Fosamax] 70 mg tablet 70 mg PO QWEEK Qty: 12 0RF Hold Instructions: dental procedures Rx Instructions: perscription is on hold d/t dental procedures omeprazole 40 mg capsule,delayed release(DR/EC) 40 mg PO QDAY Qty: 90 3RF metoprolol succinate 50 mg tablet extended release 24 hr 50 mg PO BID Qty: 180 0RF Entresto 49-51 mg tablet 1 tab PO BID (DME) Disabled Parking Permit Qty: 1 0RF Rx Instructions: Patient qualifies for disabled parking as per the attached form. nystatin 100,000 unit/gram cream 1 applic topical BID Qty: 30 5RF furosemide 20 mg tablet 20 mg PO DAILY Qty: 180 1RF ferrous sulfate [Iron (ferrous sulfate)] 325 mg (65 mg iron) tablet 325 mg PO DAILY gabapentin [Neurontin] 600 mg tablet 600 mg PO TID Qty: 270 3RF hydrocodone-acetaminophen 5-325 mg tablet 1 tab PO Q4H MDD 3 tabs PRN (Reason: pain) Qty: 90 0RF hydrocodone-acetaminophen 5-325 mg tablet 1 tab PO Q4H MDD 3 tabs PRN (Reason: pain) Qty: 90 0RF hydrocodone-acetaminophen 5-325 mg tablet 1 tab PO Q4H MDD 3 tabs PRN (Reason: pain) Qty: 90 0RF nystatin 100,000 unit/gram powder 1 applic topical TID Qty: 60 3RF gabapentin 300 mg capsule 300 mg PO BEDTIME Qty: 30 2RF Referrals: Charles Castaneda MD [Primary Care Provider] - Stand Alone Forms: Patient Portal/API
[2024-03-24] MEDS: cephALEXin 250 MG CAPSULE 500 MG PO (19:12)
[2024-03-24] MEDS: HYDROCODONE/ACET 5/325 TABLET 1 TAB PO (19:12)
[2024-03-24 19:57] VITALS: BP 176/98; PULSE 88; RESP 16; TEMP 36.2; O2SAT 90
[2024-03-24 19:59] VITALS: BP 176/98; PULSE 88; RESP 16; O2SAT 90
== END 2024-03-24 19:59 | disposition home or self-care (01) ==
PROVIDERS: Emergency Medicine; Emergency Provider Emergency Medicine; PCP Internal Medicine
DX: L03.116 Cellulitis of left lower limb (principal); L03.115 Cellulitis of right lower limb; M79.605 Pain in left leg; M79.604 Pain in right leg
CPT/HCPCS: 36415; 80053; 85025; 85651; 86140; 93971; 99283; 99284

== ENCOUNTER 2024-05-10 17:35 | Inpatient (IN) | payer MEDICARE, SELFPAY ==
[2023-11-30 14:21] VITALS: BMI 25.7
[2024-05-10] VITALS (10 sets, daily range): BP systolic 140–185; BP diastolic 69–100; PULSE 68–100; RESP 20–37; TEMP 36.2–36.9; O2SAT 90–98; BMI 25.7
--- NOTE | 2024-05-10 17:52 | DI.RAD.S_ITS ---
PROCEDURE: XR CHEST 1V INDICATIONS: Shortness of breath TECHNIQUE: One view of the chest was acquired. COMPARISON: [facility], CR, XR CHEST 1V, 11/20/2023, 11:23. FINDINGS: Surgical changes and devices: Left upper quadrant surgical clips. Lungs and pleura: Low lung volumes are seen bilaterally, likely accentuated due to positioning. Probable bibasilar atelectasis. Interstitial markings appear mildly increased bilaterally Small pleural effusions are not excluded. No pneumothorax, although the patient's head overlies portions of the lung apices. Mediastinum: Cardiac silhouette is obscured, but appears enlarged. Large hiatal hernia as previously seen. Bones and chest wall: Scoliotic curvature and multilevel degenerative changes again seen in the spine. Osteopenia. IMPRESSION: 1. Low lung volumes bilaterally with bibasilar atelectasis. 2. Mild interstitial prominence could indicate edema. Possible small bilateral pleural effusions. 3. Cardiomegaly. 4. Hiatal hernia. Approved by: Niranjan Monae M.D. on 05/10/2024 at 19:23
--- NOTE | 2024-05-10 17:52 | EKG_ITS ---
[facility] [address], [place] [address] Test Date: 2024-05-10 Pat Name: Fadumo Ny Department: [facility] Room: Gender: Female Social Work Manager: BARBY : 1940 Requested By: Order Number: [id number] Reading MD: Juan David Brunson Measurements Intervals [place] Rate: 88 P: NE: 184 QRS: -34 QRSD: 138 T: 143 QT: 378 QTc: 457 Interpretive Statements Sinus rhythm with premature atrial complexes Left axis deviation Nonspecific intraventricular block Minimal voltage criteria for LVH, may be normal variant ( [place] product ) Inferior infarct , age undetermined Possible Anterolateral infarct , age undetermined Electronically Signed On 05-10-2024 18:10:33 PDT by Juan David Brunson
[2024-05-10 18:23] LABS: Add Manual Diff / Slide Review NO; Basophils Absolute Auto 0 /uL (0-100); Basophils Percent Auto 0.8 % (0-2); Eosinophils Absolute Auto 0 /uL (0-450); Eosinophils Percent Auto 0.3 % (2-4); Hematocrit 44.7 % (36-46); Hemoglobin 13.9 g/dL (12.0-16.0); Lymphocytes Absolute Auto 600 /uL (1100-4500); Lymphocytes Percent Auto 11.9 % (25-40); Mean Corpuscular HGB Conc 31.2 % (30-36); Mean Corpuscular Volume 99.4 fL (80-100); Monocytes Absolute Auto 300 /uL (0-900); Neutrophils Absolute Auto 3900 /uL (1500-7000); Platelet Count 223 X10^3/uL (150-400); Red Blood Cell Count 4.49 X10^6/uL (4.0-5.2); Red Cell Distribution Width 15.7 % (11.6-14.8); White Blood Cell Count 4.9 X10^3/uL (4.5-11.0)
[2024-05-10 18:31] LABS: INR 1.1 (0.9-1.3); Prothrombin Time 12.5 SECONDS (9.4-12.5)
[2024-05-10 18:40] LABS: Alanine Aminotransferase 19 IU/L (<35); Albumin 3.9 g/dL (3.5-5.0); Albumin Globulin Ratio 1.2 (1.0-2.8); Alkaline Phosphatase 80 U/L (38-126); Aspartate Aminotransferase 25 IU/L (14-36); BUN Creatinine Ratio 22.2 (6-22); Bilirubin Total 0.9 mg/dL (0.2-1.3); Blood Urea Nitrogen 14 mg/dL (7-17); Calcium 9.1 mg/dL (8.4-10.2); Carbon Dioxide 29 mmol/L (22-32); Chloride 98 mmol/L (98-107); Estimated Glomerular Filt Rate > 60 mL/min (>60); Globulin 3.3 g/dL (1.7-4.1); Glucose 99 mg/dL (80-110); HEMOLYSIS < 15 (0-50); Lactate (Lactic Acid) 1.5 mmol/L (0.7-2.1); Potassium 4.6 mmol/L (3.4-5.1); Sodium 136 mmol/L (137-145); Total Protein 7.2 g/dL (6.3-8.2)
[2024-05-10 18:50] LABS: NT-proBNP (BNP-Adult 18+) 20100 pg/mL (<450)
--- NOTE | 2024-05-10 18:59 | PC.NURSE ---
Pt resting in lopez bed. on 2L O2 NC. IV established. CXR and EKG obtained. khyphotic at baseline. appears more comfortable with O2. No new orders
[2024-05-10] MEDS: FUROSEMIDE 60 MG in SODIUM CHLORIDE 0.9% 50 ML 112 MG IV (19:20)
--- NOTE | 2024-05-10 19:22 | PC.NURSE ---
pt moved into rm 10. placed on cardiac monitoring. continues on 2L NC. lasix infusing per mar and pure wick applied. given warm blankets. report given to HAILEE amaro.
[2024-05-10 19:32] LABS: Troponin I 0.015 ng/mL (0.01-0.034)
[2024-05-10 19:32] LABS: COVID-19 CEPHEID 4-PLEX PCR Negative (Negative); Influenza A - CEPHEID Flu A NEGATIVE (NEGATIVE); Influenza B - CEPHEID Flu B NEGATIVE (NEGATIVE); Respiratory Syncytial Virus Negative (Negative)
--- NOTE | 2024-05-10 20:40 | ED.GENADULT ---
HPI - General Adult General Chief complaint: Shortness of Breath/Dyspnea Stated complaint: feverish, nausea Time Seen by Provider: 05/10/24 18:13 Source: patient and family Mode of arrival: Wheelchair History of Present Illness HPI narrative: Patient is an 83-year-old female who has a history of heart failure. Is prescribed Lasix although there is some question as to whether not she has been taking her Lasix over the past couple days. Is here for evaluation of was initially stated as having subjective fevers and nausea, loss of appetite, productive cough. Does have lower extremity swelling but this potentially is baseline for her. She denies chest pain. Related Data Home Medications Medication Instructions Recorded Confirmed vitamin E 268 mg (400 unit) capsule 400 unit PO DAILY ##0 07/08/11 04/04/24 ferrous sulfate 325 mg (65 mg 325 mg PO DAILY 10/13/18 04/04/24 iron) tablet (Iron (ferrous sulfate)) sacubitril 49 mg-valsartan 51 mg 1 tab PO BID 01/04/24 04/04/24 tablet (Entresto) Previous Rx's Medication Instructions Recorded alendronate 70 mg tablet (Fosamax) 70 mg PO QWEEK #12 tabs 08/10/22 gabapentin 600 mg tablet 600 mg PO TID #270 tabs 06/07/23 (Neurontin) omeprazole 40 mg capsule,delayed 40 mg PO QDAY #90 caps 08/17/23 release gabapentin 300 mg capsule 300 mg PO BEDTIME #30 caps 11/11/23 Disabled Parking Permit #1 ea 01/04/24 furosemide 20 mg tablet 20 mg PO DAILY #180 tabs 01/04/24 nystatin 100,000 unit/gram topical 1 applic topical BID #30 grams 01/04/24 cream metoprolol succinate 50 mg 50 mg PO BID #180 tabs 03/06/24 tablet,extended release 24 hr hydrocodone 5 mg-acetaminophen 325 1 tab PO Q4H PRN pain #90 tabs 03/07/24 mg tablet hydrocodone 5 mg-acetaminophen 325 1 tab PO Q4H PRN pain #90 tabs 03/07/24 mg tablet hydrocodone 5 mg-acetaminophen 325 1 tab PO Q4H PRN pain #90 tabs 03/07/24 mg tablet nystatin 100,000 unit/gram topical 1 applic topical TID #60 grams 03/07/24 powder Allergies Allergy/AdvReac Type Severity Reaction Status Date / Time duloxetine AdvReac Intermediate Drowsy Verified 04/04/24 09:42 morphine AdvReac Intermediate mental Verified 04/04/24 09:42 status changes Review of Systems Review of Systems ROS Unobtainable: All systems reviewed & are unremarkable except as noted in HPI and below Patient History Medical History Cellulitis Left hip pain Greater trochanteric bursitis of left hip Myofascial pain Lumbar spondylosis Closed L1 vertebral fracture Cervical spondylosis Chronic neck pain Uncomplicated opioid dependence Chronic renal failure, stage 3a Chronic systolic (congestive) heart failure Glaucoma (~11/2016) Osteoporosis 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) History of duodenal ulcer History of gastrointestinal hemorrhage Essential hypertension Idiopathic scoliosis (07/03/11) Hiatal hernia (07/03/11) Chronic back pain Status post nephrectomy Social History marital status: number of children: 2 household members: none lives independently: Yes caregiver/support person: Yes housing: house pets and animals: Yes education level: college occupational status: other 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: [employer] travel history: other leisure activities: reading and other Smoking Status: Former smoker Tobacco: How many years used: 8 Smokeless tobacco user: other quit status: quit date established second hand exposure: No alcohol intake: current substance use type: does not use Smoking Status: Former smoker alcohol intake frequency: holidays/special occasions only Substance Use Type: does not use Exam Initial Vital Signs Initial Vital Signs: Vital Signs Temperature 98.5 F 05/10/24 17:45 Pulse Rate 100 H 05/10/24 17:45 Respiratory Rate 24 05/10/24 17:45 Blood Pressure 185/85 H 05/10/24 17:45 Pulse Oximetry 90 L 05/10/24 17:45 Oxygen Delivery Method Room Air 05/10/24 17:45 Const General: cooperative HENMT Head: normal to inspection and normocephalic Resp Effort & Inspection: cough, labored, no respiratory distress, no retractions and tachypneic Auscultation: crackles and no wheezes Cardio Rate: regular rate Extrem General: edema Course Orders Ordered: ED Orders 05/10/24 17:52 XR chest 1V Stat EKG-12 Lead Stat RT Consult Eval and Treat NOW 05/10/24 18:12 Complete Blood Count AUTO DIFF Stat Comprehensive Metabolic Panel Stat Lactate (Lactic Acid) Stat NT-proBNP (BNP-Adult 18+) Stat Prothrombin Time INR Stat Troponin I Stat 05/10/24 18:44 Covid-19 + FLU A/B + RSV - PCR Stat Acetaminophen (Acetaminophen 325 Mg Tablet) 650 mg PO Q6H PRN PRN Reason: Fever/Mild Pain (1-3) Hydrocodone Bitart/Acetaminophen (Hydrocodone/Acet 5/325 Tablet) 1 tab PO Q4H PRN PRN Reason: pain Last Admin: 05/11/24 00:45 Dose: 1 tab Documented By: CT Enoxaparin Sodium (Enoxaparin 40 Mg/0.4 Ml Syringe) 40 mg SUBCUT DAILY JOSE Ferrous Sulfate (Ferrous Sulfate 325 Mg Tablet) 325 mg PO DAILY JOSE Furosemide (Furosemide 20 Mg/2 Ml Vial) 20 mg IV Q8H JOSE Last Admin: 05/11/24 00:45 Dose: 20 mg Documented By: CT Gabapentin (Gabapentin 600 Mg Tablet) 600 mg PO TID JOSE Last Admin: 05/11/24 00:45 Dose: 600 mg Documented By: CT Metoprolol Succinate (Metoprolol Er 50 Mg Tablet) 50 mg PO BID JOSE Naloxone HCl (Naloxone 0.4 Mg/Ml Vial) 0.2 mg IV Q2MIN PRN PRN Reason: Opiate Reversal Non-Formulary Medication (Sacubitril-Valsartan [Entresto]) 1 tab PO BID JOSE Pantoprazole Sodium (Pantoprazole Dr 40 Mg Tablet) 40 mg PO 0600 JOSE Discontinued Medications Gabapentin (Gabapentin 300 Mg Capsule) 300 mg PO BEDTIME JOSE Furosemide 60 mg/ Sodium (Chloride) 56 mls @ 112 mls/hr IV NOW ONE Stop: 05/10/24 18:58 Last Infusion: 05/10/24 19:46 Dose: Infused Documented By: Admin: 05/10/24 19:20 Dose: 112 mls/hr Documented By: CTS Vital Signs Vital signs: Vital Signs - 8 hr 05/10/24 19:16 05/10/24 19:22 05/10/24 19:22 Pulse Rate 90 76 Respiratory Rate 31 H Blood Pressure 180/100 H Pulse Oximetry 95 96 05/10/24 19:30 05/10/24 19:30 05/10/24 20:00 Pulse Rate 90 Respiratory Rate 37 H Blood Pressure 177/99 H 169/90 H Pulse Oximetry 96 05/10/24 20:00 05/10/24 20:30 05/10/24 20:30 Pulse Rate 75 97 H Respiratory Rate 33 H 27 H Blood Pressure 146/97 H Pulse Oximetry 98 98 05/10/24 21:00 05/10/24 21:00 Pulse Rate 71 Respiratory Rate 29 H Blood Pressure 164/77 H Pulse Oximetry 97 Medical Decision Making Lab Data Lab results reviewed: Yes I reviewed the patient's lab results. 05/10/24 18:12 05/10/24 18:12 Labs: Lab Results 05/10/24 05/10/24 Range/Units 18:12 18:44 WBC 4.9 (4.5-11.0) X10^3/uL RBC 4.49 (4.0-5.2) X10^6/uL Hgb 13.9 (12.0-16.0) g/dL Hct 44.7 (36-46) % MCV 99.4 (80-100) fL MCH 31.0 (26-34) PG MCHC 31.2 (30-36) % RDW 15.7 H (11.6-14.8) % Plt Count 223 (150-400) X10^3/uL Neut % (Auto) 80.0 H (50-75) % Lymph % (Auto) 11.9 L (25-40) % [place] % (Auto) 7.0 (3-14) % Eos % (Auto) 0.3 L (2-4) % Baso % (Auto) 0.8 (0-2) % Neut # (Auto) 3900 (0048-2346) /uL Lymph # (Auto) 600 L (6354-4588) /uL [place] # (Auto) 300 (0-900) /uL Eos # (Auto) 0 (0-450) /uL Baso # (Auto) 0 (0-100) /uL PT 12.5 (9.4-12.5) SECONDS INR 1.1 (0.9-1.3) Sodium 136 L (137-145) mmol/L Potassium 4.6 (3.4-5.1) mmol/L Chloride 98 (98-107) mmol/L Carbon Dioxide 29 (22-32) mmol/L BUN 14 (7-17) mg/dL Creatinine 0.63 (0.52-1.04) mg/dL Estimated GFR > 60 (>60) mL/min BUN/Creatinine Ratio 22.2 H (6-22) Glucose 99 (80-110) mg/dL Lactate 1.5 (0.7-2.1) mmol/L Calcium 9.1 (8.4-10.2) mg/dL Total Bilirubin 0.9 (0.2-1.3) mg/dL AST 25 (14-36) IU/L ALT 19 (<35) IU/L Alkaline Phosphatase 80 (38-126) U/L Troponin I 0.015 (0.01-0.034) ng/mL NT-Pro-B Natriuret Pep 01917 H (<450) pg/mL Total Protein 7.2 (6.3-8.2) g/dL Albumin 3.9 (3.5-5.0) g/dL Globulin 3.3 (1.7-4.1) g/dL Albumin/Globulin Ratio 1.2 (1.0-2.8) SARS-CoV-2 (PCR) Negative (Negative) Influenza A (RT-PCR) Flu a negative (NEGATIVE) Influenza B (RT-PCR) Flu b negative (NEGATIVE) RSV (PCR) Negative (Negative) Imaging Data Chest x-ray: Radiologist's Impression: PROCEDURE: XR CHEST 1V INDICATIONS: Shortness of breath TECHNIQUE: One view of the chest was acquired. COMPARISON: Located Within [facility], , XR CHEST 1V, 11/20/2023, 11:23. FINDINGS: Surgical changes and devices: Left upper quadrant surgical clips. Lungs and pleura: Low lung volumes are seen bilaterally, likely accentuated due to positioning. Probable bibasilar atelectasis. Interstitial markings appear mildly increased bilaterally Small pleural effusions are not excluded. No pneumothorax, although the patient's head overlies portions of the lung apices. Mediastinum: Cardiac silhouette is obscured, but appears enlarged. Large hiatal hernia as previously seen. Bones and chest wall: Scoliotic curvature and multilevel degenerative changes again seen in the spine. Osteopenia. IMPRESSION: 1. Low lung volumes bilaterally with bibasilar atelectasis. 2. Mild interstitial prominence could indicate edema. Possible small bilateral pleural effusions. 3. Cardiomegaly. 4. Hiatal hernia. ECG Data Attestation: I personally reviewed and interpreted this ECG as follows: Interpretation: Sinus rhythm Ventricular rate of 88 Occasional PACs Left axis deviation No ST T wave changes MDM Narrative Medical decision making narrative: BNP today significantly higher than baseline. Chest x-ray shows pulmonary edema. She was requiring oxygen at 2 L in order to maintain oxygen saturations greater than 90%. Patient was given Lasix and she did diurese approximately 1 L but still requiring oxygen. She denies chest pain. Troponin is negative. I suspect that the patient is retaining fluid/pulmonary edema secondary to not taking her Lasix for the past couple days. Patient does require admission to the hospital for further diuresis and respiratory support. Discussed the case with Dr. Cook he was on-call for the patient's primary doctor who will admit for further evaluation and treatment. Discharge Plan Departure Patient Disposition: Admitted As Inpatient Clinical Impression: Acute CHF, Hypoxia Admit Date/Time: 05/10/24 21:02 Admit Provider: Helen Cook
[2024-05-11] VITALS (8 sets, daily range): BP systolic 94–146; BP diastolic 52–78; PULSE 73–80; RESP 14–18; TEMP 35.9–36.8; O2SAT 94–97
[2024-05-11] MEDS: FUROSEMIDE 20 MG/2 ML VIAL IV (00:45)
[2024-05-11] MEDS: HYDROCODONE/ACET 5/325 TABLET 1 TAB PO ×3 (00:45→21:27)
[2024-05-11] MEDS: GABAPENTIN 600 MG TABLET PO ×4 (00:45→20:51)
[2024-05-11 06:02] LABS: Add Manual Diff / Slide Review NO; Basophils Absolute Auto 0 /uL (0-100); Basophils Percent Auto 0.7 % (0-2); Eosinophils Absolute Auto 0 /uL (0-450); Eosinophils Percent Auto 0.5 % (2-4); Hematocrit 41.8 % (36-46); Hemoglobin 13.3 g/dL (12.0-16.0); Lymphocytes Absolute Auto 800 /uL (1100-4500); Lymphocytes Percent Auto 13.8 % (25-40); Mean Corpuscular HGB Conc 31.9 % (30-36); Mean Corpuscular Hemoglobin 31.5 PG (26-34); Mean Corpuscular Volume 98.6 fL (80-100); Monocytes Absolute Auto 400 /uL (0-900); Monocytes Percent Auto 7.4 % (3-14); Neutrophils Absolute Auto 4500 /uL (1500-7000); Neutrophils Percent Auto 77.6 % (50-75); Platelet Count 216 X10^3/uL (150-400); Red Blood Cell Count 4.24 X10^6/uL (4.0-5.2); Red Cell Distribution Width 15.1 % (11.6-14.8); White Blood Cell Count 5.8 X10^3/uL (4.5-11.0)
[2024-05-11 06:13] LABS: Blood Urea Nitrogen 15 mg/dL (7-17); Calcium 8.6 mg/dL (8.4-10.2); Chloride 93 mmol/L (98-107); Estimated Glomerular Filt Rate > 60 mL/min (>60); Glucose 84 mg/dL (80-110); HEMOLYSIS < 15 (0-50); Potassium 3.8 mmol/L (3.4-5.1); Sodium 138 mmol/L (137-145)
[2024-05-11 06:20] LABS: Carbon Dioxide 35 mmol/L (22-32)
[2024-05-11] MEDS: PANTOPRAZOLE DR 40 MG TABLET PO (06:55)
--- NOTE | 2024-05-11 07:31 | P.HP_ITS ---
History of Present Illness History of Present Illness Date Patient Seen: 05/11/24 Time Patient Seen: 07:31 Chief complaint: feverish, nausea Narrative: 83 year old female well known to me with significant cardiac history including significant cardiomyopathy with history of chronic congestive heart failure admitted via emergency department with acute on chronic congestive heart failure. Unclear whether or not patient actually has been taking her usual Lasix for several days prior to admission. Patient presented with symptoms of subjective fever with cough increased weakness maybe some shortness of breath. ER evaluation was remarkable for congestive heart failure on chest x-ray a BNP quite elevated over her baseline normal white blood cell count and renal function She was hypoxic as well upon presentation. She was given some IV furosemide with good urinary output, and maybe some minor improvement in her oxygenation. She was admitted for further diuresis Patient was significant cardiac history with a prior history of significant cardiomyopathy (question takotsubo cardiomyopathy) with left ventricular ejection fraction as low as 20% in 2019. This improved with medical therapy but most recently has an ejection fraction of about 45-50% with grade 2 diastolic dysfunction as well as some moderate tricuspid regurgitation and [id number] mitral regurgitation This morning, patient really has no complaints. She was a difficult time really expressing to me what her presenting complaints were although does admit to some generalized weakness. It was unclear based on talking to her whether not she has been taking her medications. She just seems a bit disoriented. 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) History of duodenal ulcer History of gastrointestinal hemorrhage Essential hypertension Idiopathic scoliosis (07/03/11) Hiatal hernia (07/03/11) Chronic back pain Status post nephrectomy Social History marital status: number of children: 2 household members: none lives independently: Yes caregiver/support person: Yes housing: house pets and animals: Yes education level: college occupational status: other 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: [employer] travel history: other leisure activities: reading and other Smoking Status: Former smoker Tobacco: How many years used: 8 Smokeless tobacco user: other quit status: quit date established second hand exposure: No alcohol intake: current substance use type: does not use Meds Home Medications and Allergies Home Medications Medication Instructions Recorded Confirmed Type vitamin E 268 mg (400 unit) capsule 400 unit PO DAILY ##0 07/08/11 05/11/24 History ferrous sulfate 325 mg (65 mg 325 mg PO DAILY 10/13/18 05/11/24 History iron) tablet (Iron (ferrous sulfate)) gabapentin 600 mg tablet 600 mg PO TID #270 tabs 06/07/23 05/11/24 Rx (Neurontin) omeprazole 40 mg capsule,delayed 40 mg PO QDAY #90 caps 08/17/23 05/11/24 Rx release Disabled Parking Permit #1 ea 01/04/24 05/11/24 Rx furosemide 20 mg tablet 20 mg PO DAILY #180 tabs 01/04/24 05/11/24 Rx sacubitril 49 mg-valsartan 51 mg 1 tab PO BID 01/04/24 05/11/24 History tablet (Entresto) metoprolol succinate 50 mg 50 mg PO BID #180 tabs 03/06/24 05/11/24 Rx tablet,extended release 24 hr hydrocodone 5 mg-acetaminophen 325 1 tab PO Q4H PRN pain #90 tabs 03/07/24 05/11/24 Rx mg tablet nystatin 100,000 unit/gram topical 1 applic topical TID #60 grams 03/07/24 05/11/24 Rx powder Allergies Allergy/AdvReac Type Severity Reaction Status Date / Time duloxetine AdvReac Intermediate Drowsy Verified 04/04/24 09:42 morphine AdvReac Intermediate mental Verified 04/04/24 09:42 status changes Review of Systems Review of Systems ROS: Yes All systems reviewed with the patient and are negative except as otherwise documented Exam Vital Signs (past 8 hours): - 05/11/24 05:34 Temperature 96.7 F L Pulse Rate 73 Respiratory Rate 16 Blood Pressure 136/77 Pulse Oximetry 95 Oxygen Flow Rate 0 Oxygen Delivery Method Room Air Oxygen Flow Rate 0 Narrative Exam Narrative: Elderly female in no obvious distress HEENT unremarkable Lungs-Clear although maybe a few scattered crackles at the bases Heart-regular rate and rhythm Objective Labs 05/11/24 04:55 05/11/24 04:55 Labs: Laboratory Results - last 24 hr 05/10/24 05/10/24 05/11/24 18:12 18:44 04:55 WBC 4.9 5.8 RBC 4.49 4.24 Hgb 13.9 13.3 Hct 44.7 41.8 MCV 99.4 98.6 MCH 31.0 31.5 MCHC 31.2 31.9 RDW 15.7 H 15.1 H Plt Count 223 216 Neut % (Auto) 80.0 H 77.6 H Lymph % (Auto) 11.9 L 13.8 L [place] % (Auto) 7.0 7.4 Eos % (Auto) 0.3 L 0.5 L Baso % (Auto) 0.8 0.7 Neut # (Auto) 3900 4500 Lymph # (Auto) 600 L 800 L [place] # (Auto) 300 400 Eos # (Auto) 0 0 Baso # (Auto) 0 0 PT 12.5 INR 1.1 Sodium 136 L 138 Potassium 4.6 3.8 Chloride 98 93 L Carbon Dioxide 29 35 H BUN 14 15 Creatinine 0.63 0.75 Estimated GFR > 60 > 60 BUN/Creatinine Ratio 22.2 H 20.0 Glucose 99 84 Lactate 1.5 Calcium 9.1 8.6 Total Bilirubin 0.9 AST 25 ALT 19 Alkaline Phosphatase 80 Troponin I 0.015 NT-Pro-B Natriuret Pep 30580 H Total Protein 7.2 Albumin 3.9 Globulin 3.3 Albumin/Globulin Ratio 1.2 SARS-CoV-2 (PCR) Negative Influenza A (RT-PCR) Flu a negative Influenza B (RT-PCR) Flu b negative RSV (PCR) Negative Assessment & Plan Assessment & Plan narrative: 1. Acute respiratory failure with hypoxia-due to acute on chronic congestive heart failure. Will treat with oxygen replacement therapy as necessary and treatment of her congestive heart failure as below 2. Acute on chronic congestive heart failure with reduced ejection fraction- continue with parental furosemide and monitor electrolytes carefully. 3. Chronic renal failure stage 3 a-patient was status post nephrectomy. Need to monitor her renal function carefully while undergoing diuresis 4. Chronic spine pain-patient both chronic neck and low back pain. Not felt to be amenable to specific interventions. Patient chronically uses opiate narcotics for control of her pain. These will be available for her while here 5. Hypertension-continue patient's usual meds 6. History of GI bleed thought to be secondary to Sergey lesions-no evidence of anemia at this time. Continue usual meds 7. VTE prophylaxis-Lovenox makes sense and has been ordered 8. Code status-per patient she would request no resuscitation or efforts in the event of a sudden cardiac or respiratory arrest which is been her preference recently and is confirmed for this hospitalization. Of course not anticipated at this time 9. Altered mental status-patient is a bit altered this morning. Probably multifactorial. No focal findings. Will outpatient to rest and re-evaluate later today or tomorrow. If not improving consider further workup for some acute event Time-Based Coding :: [TOTAL MINUTES] spent with patient and on the chart (including review of chart, obtaining history, exam, reviewing outside data, placing orders, documenting exam and treatment plan, and counseling patient) on [DATE]. PROFEE Charge Codes Initial inpatient/observation care: 68624
[2024-05-11] MEDS: FUROSEMIDE 20 MG/2 ML VIAL 40 MG IV (07:47)
[2024-05-11] MEDS: FERROUS SULFATE 325 MG TABLET PO (08:11)
[2024-05-11] MEDS: METOPROLOL ER 50 MG TABLET PO (08:11)
[2024-05-11] MEDS: ACETAMINOPHEN 325 MG TABLET 650 MG PO (08:11)
[2024-05-11] MEDS: ENOXAPARIN 40 MG/0.4 ML SYRINGE SUBCUT (08:11)
--- NOTE | 2024-05-11 08:24 | DI.ECHO.S_ITS ---
[facility]---------+ [facility] : : [address] : : [place] : : [id number] : : Phone: [phone] Echocardiogram Report + + :Name: MICHELLE HAIDER Study Date: 05/11/2024 Height: 65 in : :[facility] ReadingLocation: Weight: 166 lb : : Gender: Female BSA: 1.8 m2 : :: 1940 Age: 83 yrs BP: 146/78 mmHg: :Reason For Study: CONGESTIVE HEART FAILURE : :Ordering Physician: RAHEEL, : :HATTIE Henley Performed By: Simona Parker : :Referring: HATTIE PICKERING : + + Interpretation Summary 1. The left ventricular contractility is mildly compromised. Estimate ejection fraction is approximately 40 to 45% with mild global hypokinesis. Borderline concentric LVH. Grade 1 diastolic dysfunction. 2. The right ventricular contractility is preserved. There is mild flattening of the interventricular septum suggestive of a pressure overloaded state. 3. Biatrial enlargement noted. The right ventricular cavity is also dilated. 4. Mild mitral regurgitation. 5. Moderate tricuspid regurgitation with estimated pulmonary systolic artery pressures of 49 mmHg. 6. Mild to moderate pulmonic insufficiency. 7. No obvious intracardiac shunts. 8. No obvious ventricular masses nor thrombi. 9. No hemodynamically significant pericardial effusion. Conclusion: Mildly compromised left ventricular systolic function with findings suggestive of right ventricular overloaded state. When compared with previous study, no significant changes have occurred. Procedure: A two-dimensional transthoracic echocardiogram with color flow and Doppler was performed. The study quality was technically adequate. Comparison is made with the echocardiogram of 11/21/2023. The patient was in sinus rhythm with heart rates between 65-83 bpm during the exam. Left Ventricle: The left ventricle is normal in size. Left ventricular wall thickness is mildly increased. The ejection fraction is estimated to be 40- 45%. The interventricular septum is flattened, consistent with a right ventricular pressure/volume condition. Paradoxical septal motion is consistent with right ventricular volume overload. Diastolic parameters suggest a pseudonormalization pattern, consistent with probable elevated filling pressures. Right Ventricle: The right ventricle is moderately dilated. The right ventricular systolic function is normal. Atria: The left atrium is moderately dilated. The right atrium is severely dilated. There is no Doppler evidence for an interatrial shunt. Mitral Valve: The mitral valve leaflets appear moderately thickened, but open well. There is mild mitral annular calcification. There is mild mitral regurgitation. Aortic Valve: The aortic valve is trileaflet. The aortic valve opens well. There is no aortic valve stenosis. No aortic regurgitation is present. Tricuspid Valve: Tricuspid leaflets are thickened. There is moderate tricuspid regurgitation. Right ventricular systolic pressure is estimated to be 49 mmHg plus the clinically estimated CVP which cannot be estimated on this exam. Pulmonic Valve: The pulmonic valve leaflets are thin and pliable; valve motion is normal. There is mild to moderate pulmonic regurgitation. Great Vessels: The aortic root is normal size. The dimensions of the ascending aorta are normal. The IVC is of normal diameter and collapses greater than 50% with a sniff. This suggests a low right atrial pressure of 3 mm Hg. Pericardium/ Pleura There is no pericardial effusion. There is no pleural effusion. MMode/2D Measurements & Calculations LVIDd: 4.3 cm LVOT diam: 2.0 cm LVIDs: 3.3 cm Ao root diam: 3.2 cm FS: 23.4 % asc Aorta Diam: 3.3 cm IVSd: 1.1 cm Ao Arch Diam (Prox Trans): 3.2 cm LVPWd: 0.91 cm LV triana. diameter/BSA (cm/m^2): 2.4 LV sys. diameter/BSA (cm/m^2): 1.8 LA A2 area: 20.8 cm2 RA long axis: 6.2 cm LA A4 area: 28.5 cm2 RA area: 26.8 cm2 LA length (vol): 6.7 cm RA vol: 97.8 ml LA vol: 75.4 ml RA : 53.5 ml/m2 LA vol index: 41.3 ml/m2 IVC diam: 1.9 cm RVD1 (basal): 5.3 cm RVD2 (mid): 3.8 cm TAPSE: 1.7 cm Doppler Measurements & Calculations Ao V2 max: 158.1 cm/sec LVOT Max Nile: 97.9 cm/sec Ao V2 mean: 107.1 cm/sec LV V1 max P.8 mmHg Ao max P.0 mmHg LV V1 VTI: 19.4 cm Ao mean P.3 mmHg ELIUD(I,D): 2.0 cm2 Ao V2 VTI: 30.2 cm ELIUD(V,D): 1.9 cm2 sev ratio: 0.64 ELIUD indexed to BSA (cm^2/m^2): 1.1 MV E max nile: 84.6 cm/sec TR max nile: 350.6 cm/sec MV A max nile: 88.6 cm/sec TR max P.2 mmHg MV E/A: 0.95 PA V2 max: 123.5 cm/sec Med Peak E' Nile: 2.8 cm/sec PA V2 mean: 67.1 cm/sec E/E' med: 30.6 PA mean P.2 mmHg Lat Peak E' Nile: 5.8 cm/sec PA pr(Accel): 41.3 mmHg E/E' lat: 14.5 E/e' average: 22.6 MV dec time: 0.19 sec MVA(VTI): 1.8 cm2 MV V2 mean: 52.9 cm/sec SV(LVOT): 60.5 ml MV mean P.4 mmHg MV V2 VTI: 33.2 cm Reading Physician:
--- NOTE | 2024-05-11 12:26 | PT-IP ANOTE ---
PT consult received. PT reviews chart and checks in on pt who is eating lunch. Will con't PT efforts.
--- NOTE | 2024-05-11 14:14 | PT.IIE ---
Current Diagnoses Acute on chronic systolic (congestive) heart failure (05/10/24) Medical History (Last Reviewed 05/11/24 @ 07:35 by Charles Castaneda MD) Cellulitis Cervical spondylosis Chronic back pain Chronic Sergey lesion (02/16/17) Chronic neck pain Chronic renal failure, stage 3a Chronic systolic (congestive) heart failure Closed L1 vertebral fracture 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) Essential hypertension Glaucoma (~11/2016) Greater trochanteric bursitis of left hip Hiatal hernia (07/03/11) History of duodenal ulcer History of gastrointestinal hemorrhage Idiopathic scoliosis (07/03/11) Left hip pain Lumbar spondylosis Myofascial pain Osteoporosis 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 Pt uses 4WW at baseline. Pt able to perform ADLs around her room independently. Social History Household Members none Living Arrangements Assisted Living Home Equipment Four Wheel Walker Employment Status Retired M2 PT-IP Current Condition Start: 05/11/24 12:23 Freq: NEEDED Status: Active Protocol: Document 05/11/24 13:50 DCW (Rec: 05/11/24 14:35 DCW [id number]) Physical Therapy Current Condition Current Condition Evaluation Date 05/11/24 Treatment Diagnosis Fatigue, weakness Onset Date 05/10/24 M3 PT-IP Subjective Start: 05/11/24 12:23 Freq: NEEDED Status: Active Protocol: Document 05/11/24 13:50 DCW (Rec: 05/11/24 14:35 DCW [id number]) Subjective Physical Therapy Visit Type Type Initial Evaluation Visit Start Time 13:50 Visit Stop Time 14:14 Notes Pt presented to ED 05/10/24 with complaints of cough, loss of appetite, and nausea. Admitted to in-patient due to acute CHF. Feeling better morning of 05/11/24, vague complaints of weakness. Number of STUDIO GRIP Visits 0 Physical Therapy Visit Comments Patient Comments I think that would be a good idea when asked if she was interested in participating in PT Therapy Pain Assessment Pain When Pain Assessed During Exercise Pain Present Pain Present Denied Pain M4 PT-IP Mobility and Gait Start: 05/11/24 12:23 Freq: NEEDED Status: Active Protocol: Document 05/11/24 13:50 DCW (Rec: 05/11/24 14:35 DCW [id number]) PT-Bed Mobility Assessment Supine to Sit Supine to Sit Standby Assistance Scooting Scooting to Edge of Bed Standby Assistance PT-Transfer Assessment Sit to and From Stand Sit to and from Stand Standby Assistance Equipment Transfer Assistive Device Bed Rail,Gait Belt,Front Wheeled Walker Transfers Transfer Destination Bed,Chair Transfer Technique Stand Step Pivot Transfer Ability Level of Assist Standby Assistance Comments Mobility Comments Pt bed mobility slow and required increased effort, but pt able to perform without assistance, no increased SOB. Gait Assessment Gait Gait Assistance Required: Standby Assistance Distance (Feet) 5 Assistive Devices Assistive Device Gait Belt,Front Wheeled Walker Gait Deviations General Gait Pattern Decreased Stride Length, Decreased Feet Clearance, Flexed Trunk,Step-to Gait Factors Limiting Gait Function Factors Limiting Gait Function Decreased Activity Tolerance, Decreased Sensation M5 PT-IP Objective Assessments Start: 05/11/24 12:23 Freq: NEEDED Status: Active Protocol: Document 05/11/24 13:50 DCW (Rec: 05/11/24 14:35 DCW [id number]) Orientation Orientation/Cognition Level of Alertness Alert Orientation Name,Birthday,Place,Situation Language Function Ability No Deficits Noted Safety Awareness Understands Safety Issues Memory Description No Deficits Noted Strength Lower Extremity Strength Assessment Bilaterally Impaired Hip 3+ Knee 4- Comments Strength Comments Pt struggled lifting legs against gravity in supine, but after getting up and moving around, was able to demonstrate reasonable functional strength through movement M6 PT-IP Treatment Start: 05/11/24 12:23 Freq: NEEDED Status: Active Protocol: Document 05/11/24 13:50 DCW (Rec: 05/11/24 14:35 DCW [id number]) Physical Therapy Treatment Other Treatments Other Treatment Performed Standing Marching, LAQ, Hamstring Curls, SLR M7 PT-IP Assessment and Plan Start: 05/11/24 12:23 Freq: NEEDED Status: Active Protocol: Document 05/11/24 13:50 DCW (Rec: 05/11/24 14:35 DCW [id number]) PT Summary Assessment and Plan Potential Rehabilitation Potential Good Status of Condition at Evaluation Stable Summary Impairments Strength,Gait,Activity Tolerance Assessment Summary Pt presents with general weakness and deconditioning. Appears to be moving somewhat slower than her prior baseline , admitted her legs were not moving quite as well. Otherwise, pt feels like she is nearing her prior functional levels. Will likely benefit from continued in- patient therapy to improve gait tolerance and leg strength prior to return home to [facility]. Did well with standing balance, gait forward and backward in room, and transfer to recliner . Pt left in recliner with call button within reach, a heated blanket, and water. Goals Bed Mobility Goal Independent Transfer Goal Independent,Front Wheeled Walker Gait Goal Independent,Standby Assistance ,Front Wheel Walker Gait Distance 100 feet Days to Meet Goals 3 Frequency of Treatment Frequency Of Treatment Once a Day Treatment Plan Physical Therapy Treatment Plan Bed Mobility Training,Gait Training,Therapeutic Exercise, Balance Retraining,Post Op Education,Discharge Planning, Neuromuscular Re-ed Recommendations To Nursing Amount of Assist Needed Standby Assistance,1 Person Assist Discharge Recommendations PT Discharge Recommendations Home with Assistance, Outpatient PT Transportation Needs at Discharge Private Vehicle
--- NOTE | 2024-05-11 15:43 | OT.IP.EVAL ---
Current Diagnoses Acute on chronic systolic (congestive) heart failure (05/10/24) Past Medical History (Last Reviewed 05/11/24 @ 07:35 by Charles Castaneda MD) Cellulitis Cervical spondylosis Chronic back pain Chronic Sergey lesion (02/16/17) Chronic neck pain Chronic renal failure, stage 3a Chronic systolic (congestive) heart failure Closed L1 vertebral fracture 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) Essential hypertension Glaucoma (~11/2016) Greater trochanteric bursitis of left hip Hiatal hernia (07/03/11) History of duodenal ulcer History of gastrointestinal hemorrhage Idiopathic scoliosis (07/03/11) Left hip pain Lumbar spondylosis Myofascial pain Osteoporosis 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 Pt uses 4WW at baseline. Pt able to perform ADLs around her room independently. Activities of Daily Living and IADL's Pt states does all her ADL's and IADL needs on her own but able to get staff at [facility] to assist as needed. Social History Household Members none Living Arrangements Assisted Living Home Environment Standard Height Toilet,Walk in Shower,Elevator Home Equipment Four Wheel Walker,Raised Toilet Seat w/Armrests,Shower Seat with Backrest,Hand Held Shower,Grab Bars In Shower Employment Status Retired M2 OT-IP Current Condition Start: 05/11/24 15:43 Freq: Status: Active Protocol: Document 05/11/24 15:44 [facility] (Rec: 05/11/24 16:05 [facility] [id number]) Occupational Therapy Current Condition Current Condition Evaluation Date 05/11/24 Treatment Diagnosis Acute respiratory failure with hypoxia Diagnosis Onset Date 05/10/24 M3 OT- IP Subjective and Pain Start: 05/11/24 15:43 Freq: Status: Active Protocol: Document 05/11/24 15:44 [facility] (Rec: 05/11/24 16:05 [facility] [id number]) OT- Subjective Occupational Therapy Visit Type Type Initial Evaluation Visit Start Time 15:05 Visit Stop Time 15:43 Occupational Therapy Visit Comments Patient Comments Pt agreed to get up and wanting to use the bathroom. Patient/Caregiver Goals TO go home. OT Pain Assessment Pain When Pain Assessed At Rest Pain Present Pain Present Denied Pain M4 OT- IP ADL's Start: 05/11/24 15:43 Freq: Status: Active Protocol: Document 05/11/24 15:44 [facility] (Rec: 05/11/24 16:05 [facility] [id number]) OT [id number] Comments OT Self-Feeding Comments Not at meal time. OT ADL-Grooming Comments OT Grooming Comments NOt performed. OT ADL-Oral Care Comments Oral Care Comments NOt performed. OT ADL-Dressing General Eval Lower Body Dressing Ability Moderate Assistance Comments OT Dressing Comments Assist to get her brief on. Pt states has clay products machine operator and sock aid to assist with her needs at home. OT ADL-Toileting General Evaluation Toileting Ability Moderate Assistance Areas Needing Assistance Manage Clothing,Perform Perineal Hygiene Comments OT Toileting Comments Assist to change out her brief and assist for completeness for hygiene. OT ADL-Bathing Comments OT Bathing Comments Pt would benefit from assist at this time. M5 OT- IP IADL's Start: 05/11/24 15:43 Freq: Status: Active Protocol: Document 05/11/24 15:44 [facility] (Rec: 05/11/24 16:05 [facility] [id number]) OT-Instrumental Activities of Daily Living Home Safety Awareness Home Safety Comments TO further assess. Pt states able to call for assistance at her facility if needed. Meal Preparation Meal Preparation Caregiver Provides Assist M6 OT- IP Functional Cognition Start: 05/11/24 15:43 Freq: Status: Active Protocol: Document 05/11/24 15:44 [facility] (Rec: 05/11/24 16:05 [facility] [id number]) Cognitive Factors Limiting Selfcare Function Cognitive Ability Level of Alertness Alert Patient Orientation Name,Age,Birthday,Month,Date, Year,Day of Week,Place, Situation Attention Span Ability Capable of Focused Attention, Capable of Sustained Attention Ability to Follow Commands Able to Follow One Step Commands Cognitive Comments Cognitive Assessment Comments Pt needing vc for completeness and safety awareness for toileting needs. Pt will benefit from cognitive assessment tomorrow. OT- Vision and Hearing OT- Vision Assessment Visual Acuity Glasses For Reading Visual Attentiveness WFL Occular Pursuits WFL M7 OT- IP Mobility and Balance Start: 05/11/24 15:43 Freq: Status: Active Protocol: Document 05/11/24 15:44 [facility] (Rec: 05/11/24 16:05 [facility] [id number]) OT- Bed Mobility Assessment Supine to Sit Supine to Sit Assist Moderate Assistance OT-Transfer Assessment Sit to and From Stand Sit to and from Stand Minimal Assistance,Moderate Assistance Transfers Transfer Ability Minimal Assistance Technique Transfer Destination Bed,Chair,Toilet Transfer Technique Stand Step Pivot Devices Transfer Assistive Devices Gait Belt,Front Wheeled Walker Comments Mobility Comments MODA to stand from lower surfaces and SCOTTIE with FWW to walk to and from the toilet. O2 on 2.5L at 96% and after getting back from the toilet on RA as O2 too short dropped to 82% and O2 replaced back on and after several minutes back to 93%. OT- Balance Assessment Sitting Balance and Reactions Static Sitting Balance Ability Good Dynamic Sitting Balance Ability Good Standing Balance and Reactions Static Standing Balance Ability Fair Dynamic Standing Balance Ability Fair M8 OT- IP Objective Assessments Start: 05/11/24 15:43 Freq: Status: Active Protocol: Document 05/11/24 15:44 [facility] (Rec: 05/11/24 16:05 [facility] [id number]) OT Gross Range of Motion Upper Extremity Range of Motion ROM Impairments grossly WFL OT Strength Upper Extremity Strength Assessment Within Functional Limits Comments Strength Comments WFL for needs at least 4-/5 OT- Coordination Assessment Upper Extremity Finger to Nose Test Within Functional Limits M9 OT- IP Assessment and Plan Start: 05/11/24 15:43 Freq: Status: Active Protocol: Document 05/11/24 15:44 [facility] (Rec: 05/11/24 16:05 [facility] [id number]) OT Summary Assessment and Plan Potential Rehabilitation Potential Good Analytic Complexity at Evaluation Moderate Summary OT Impairments Strength,Balance,Functional Cognition,Functional Mobility, Dressing,Toileting,Bathing, Toilet Transfers,Shower Transfers,Activity Tolerance Progress Towards Goals Slow Progress due to Medical Issues,Slow Progress due to Activity Tolerance,Slow Progress due to Cognition Assessment Summary Pt MOD complexity and main barriers are decreased activity tolerance, needing assist for bed mobility and transitions at this time. Pt also needing use of O2. Pt wanting to go home with outpt PT. However pending on her progress and use of O2 may benefit from short skilled rehab. Goals Self-Feeding Goal Independent Grooming Goal Independent Dressing Goal Independent Toileting Goal Independent Bathing Goal Standby Assistance Toilet Transfer Goal Independent Shower Transfer Goal Standby Assistance Days to Meet Goals 10 Frequency of Treatment Other frequency 5x/week Treatment Plan OT Treatment Plan ADL Training,Functional Cognition Training,Functional Mobility,Patient/Family Education,Discharge Planning Discharge Recommendations OT Discharge Recommendations SNF Rehab,Home vs SNF Transportation Needs at Discharge Private Vehicle,Wheelchair/ Cabulance
--- NOTE | 2024-05-11 16:06 | CM.DANOTE ---
B DCP Assessment note Pt is a 83yo F here with acute resp failure and acute on chronic CHF. PMH of stage 3 renal failure. Per chart review, pt is a tad altered mentally, Dr. Castaneda notes this may be due to lack of sleep from overnight admission. PCP Dr. Castaneda Payer [facility] and self pay MEDIA RELATIONS INTERN reviewed EMR. pt had previous admission to October 2023 for similar concerns. Per previous admission notes, lives at [facility] on indept side, get assistance with transport and meals. Local dtr Phi helped her transition/with transport home. Per chart, PT rec home with assistance. remains on 1.5ltrs O2. Per chart, hx of home O2 not indicated at this time. [employer] REL[employer] INTERN unable to meet with pt today due to triaging needs. P: anticipate home with dtr support and OP f/u. MEDIA RELATIONS INTERN will f/u about seeing if pt is interested in increasing care level at [facility]. CM team will continue to follow closely for any DCP needs that arise. KATHLEEN Martínez Discharge Planning/Care Management CM Discharge Assessment Start: 05/11/24 16:03 Freq: Status: Active Protocol: Document 05/11/24 16:03 (Rec: 05/11/24 16:05 [id number]) Discharge Planning Assessment Assigned Ceramics Artist KATHLEEN Montgomery DPOA/Assigned Designee Name alok Yip Contact Information [phone] Advance Directives? Yes Advance Directives on File No History Provided By Patient,Family Member,Medical Record Prior Living Arrangements Assisted Living Household Members none Type of transporation used prior to Relies on Others admit Facility Name Admitted From: [facility] Willing to Return to Facility? Yes Independent with ADL's Yes Is patient alert and oriented? Yes Needs Assistance With Meal Prep,Home Chores / Shopping DME Already Rented / Owned Elevated Toilet Seat Comment Patient endorses she uses a FWW with wheels at baseline and uses cane when she is out in public at baseline. Discharge Plan Home Transportation Arrangement Likely local Dtr Phi to transport at d/c Additional Comment Pending PT/OT eval and recommendations If patient plan is SNF: Has PASSR been No completed? Whiteboard Updated in Patient Room with No name and ext. # of Ceramics Artist Review Status In Process Please Provide Date Initial DC 05/11/24 Assessment Was Performed Next Review Type Continued Stay Review
[2024-05-11] MEDS: Sacubitril-Valsartan [Entresto] 49-51 mg tablet 1 EACH PO (20:53)
[2024-05-12] VITALS (14 sets, daily range): BP systolic 76–125; BP diastolic 52–88; PULSE 69–160; RESP 14–22; TEMP 36.4–37.1; O2SAT 89–98
[2024-05-12] MEDS: PANTOPRAZOLE DR 40 MG TABLET PO (06:55)
[2024-05-12 07:23] LABS: BUN Creatinine Ratio 20.8 (6-22); Blood Urea Nitrogen 21 mg/dL (7-17); Calcium 8.1 mg/dL (8.4-10.2); Chloride 92 mmol/L (98-107); Estimated Glomerular Filt Rate 55 mL/min (>60); Glucose 140 mg/dL (80-110); HEMOLYSIS 18 (0-50); Potassium 4.1 mmol/L (3.4-5.1); Sodium 140 mmol/L (137-145)
--- NOTE | 2024-05-12 07:46 | PM.PN.1 ---
Subjective Subjective Date Patient Seen: 05/12/24 Time Patient Seen: 07:46 Interval history: Good urine output yesterday at 3800 cc total for the day Was placed on oxygen although can not see documented hypoxia to support that. This morning sleeping soundly only able to minimally arouse her. Seen yesterday by Physical therapy and Occupational therapy. Some concerns about stamina and need for oxygen (which I do not think actually is necessary). Exam Vital Signs (past 8 hours): - 05/12/24 01:00 05/12/24 04:22 Temperature 98.1 F 98.7 F Pulse Rate 78 96 H Respiratory Rate 16 16 Blood Pressure 125/70 103/58 L Pulse Oximetry 95 96 Oxygen Flow Rate 1.5 1.5 Oxygen Delivery Method Nasal Cannula Oxygen Flow Rate 1.5 Objective Labs 05/11/24 04:55 05/12/24 06:09 [facility] Medical History Cellulitis Left hip pain Greater trochanteric bursitis of left hip Myofascial pain Lumbar spondylosis Closed L1 vertebral fracture Cervical spondylosis Chronic neck pain Uncomplicated opioid dependence Chronic renal failure, stage 3a Chronic systolic (congestive) heart failure Glaucoma (~11/2016) Osteoporosis 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) History of duodenal ulcer History of gastrointestinal hemorrhage Essential hypertension Idiopathic scoliosis (07/03/11) Hiatal hernia (07/03/11) Chronic back pain Status post nephrectomy Social History marital status: number of children: 2 household members: none lives independently: Yes caregiver/support person: Yes housing: house pets and animals: Yes education level: college occupational status: other 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 Acute on chronic congestive heart failure with reduced ejection fraction and acute respiratory failure-seemingly stable. Echo done yesterday showed stability with left ventricular function. Continue with diuretic therapy. Weaned from oxygen as able. Given this significant urine output yesterday and the metabolic alkalosis on her labs this morning, I believe 1 more dose of parental furosemide this morning then will switch to orals for tomorrow 2. Chronic renal failure stage 3 a-continue monitor numbers while undergoing diuresis. 3. Chronic pain-continue with patient's hydrocodone as needed. Mobilize with physical therapy etcetera 4. Hypertension-patient on modestly hypotensive side. Continue to monitor carefully. May need reduction in medication 5. Disposition-anticipate patient will be able to return to her previous living facility at [facility], continue with skilled therapies Time-Based Coding :: [TOTAL MINUTES] spent with patient and on the chart (including review of chart, obtaining history, exam, reviewing outside data, placing orders, documenting exam and treatment plan, and counseling patient) on [DATE]. PROFEE Charge codes Subsequent inpatient/observation care: [id number]
[2024-05-12 07:50] LABS: Carbon Dioxide 43 mmol/L (22-32)
[2024-05-12] MEDS: METOPROLOL ER 50 MG TABLET PO (08:22)
[2024-05-12] MEDS: ENOXAPARIN 40 MG/0.4 ML SYRINGE SUBCUT (08:23)
[2024-05-12] MEDS: FUROSEMIDE 20 MG/2 ML VIAL 40 MG IV (08:23)
[2024-05-12 11:39] LABS: Base Excess ABG 18.1 mmol/L (-2-3); Blood Gas Collection Site Right Brachial; Delivery System Cannula; HCO3 ABG 49 mmol/L (23-27); Oxygen Saturation ABG 79 % (95-100); PCO2 ABG 81.1 mmHg (35-45); PO2 ABG 47 mmHg (80-100); TCO2 ABG > 50 mmol/L (23-27); pH ABG 7.39 (7.35-7.45)
[2024-05-12 11:48] LABS: Allen Test for ABG Passed? Positive; Base Excess ABG 14.1 mmol/L (-2-3); Blood Gas Collection Site Left Radial; Delivery System Cannula; HCO3 ABG 44 mmol/L (23-27); Oxygen Saturation ABG 93 % (95-100); PCO2 ABG 79.8 mmHg (35-45); PO2 ABG 74 mmHg (80-100); TCO2 ABG 46 mmol/L (23-27); pH ABG 7.35 (7.35-7.45)
--- NOTE | 2024-05-12 11:57 | PT.IPTN ---
Current Diagnoses Acute on chronic systolic (congestive) heart failure (05/10/24) Physical Therapy Treatment Note M2 PT-IP Current Condition Start: 05/11/24 12:23 Freq: NEEDED Status: Active Protocol: Document 05/11/24 13:50 DCW (Rec: 05/11/24 14:35 DCW [id number]) Physical Therapy Current Condition Current Condition Evaluation Date 05/11/24 Treatment Diagnosis Fatigue, weakness Onset Date 05/10/24 M3 PT-IP Subjective Start: 05/11/24 12:23 Freq: NEEDED Status: Active Protocol: Document 05/12/24 11:57 AB (Rec: 05/12/24 12:45 AB [id number]) Subjective Physical Therapy Visit Type Type Treatment Note Visit Start Time 11:57 Visit Stop Time 12:20 Number of GRITTING MACHINE OPERATOR Visits 0 M4 PT-IP Mobility and Gait Start: 05/11/24 12:23 Freq: NEEDED Status: Active Protocol: Document 05/12/24 11:57 AB (Rec: 05/12/24 12:45 AB [id number]) PT-Transfer Assessment Sit to and From Stand Sit to and from Stand Contact Guard Assistance,1 Person Assistance,Use of Upper Extremities Equipment Transfer Assistive Device Gait Belt,Front Wheeled Walker Orthotic/Prosthetic Devices or Brace: No Comments Mobility Comments pt seated on the chair and agreed to do PT. O2 sat with 3L/min O2: varies: 88-96%. pt completed sit to stand CGA and ambulated in room using FWW CGA to min A ~ 25 ft and cues for safety. increase assistance towards end of ambulation. pt presents with very slow meg and shuffling gait. pt with flexed trunk and has scoliosis affecting balance and mobility . pt sat back on her chair. O2 sat checked: 77%. cued for PLB. RT in room to checked on pt. O2 sat remained low: 82- 84% even after ~ 3 min. positioned pt on the chair. call light and table placed next to pt. Gait Assessment Gait Gait Assistance Required: Contact Guard Assist,Minimum Assistance Distance (Feet) 25 Able to Maintain Weight Bearing Status Yes During Gait Assistive Devices Assistive Device Gait Belt,Front Wheeled Walker Orthotic/Prosthetic Devices or Brace: No Gait Deviations General Gait Pattern Antalgic,Decreased Stride Length,Decreased Feet Clearance,Flexed Trunk Factors Limiting Gait Function Factors Limiting Gait Function Decreased Activity Tolerance, Decreased Strength,Difficulty Following Directions,Limited Range of Motion,Pain,Poor Balance,Poor Safety Awareness M5 PT-IP Objective Assessments Start: 05/11/24 12:23 Freq: NEEDED Status: Active Protocol: Document 05/11/24 13:50 DCW (Rec: 05/11/24 14:35 DCW [id number]) Orientation Orientation/Cognition Level of Alertness Alert Orientation Name,Birthday,Place,Situation Language Function Ability No Deficits Noted Safety Awareness Understands Safety Issues Memory Description No Deficits Noted Strength Lower Extremity Strength Assessment Bilaterally Impaired Hip 3+ Knee 4- Comments Strength Comments Pt struggled lifting legs against gravity in supine, but after getting up and moving around, was able to demonstrate reasonable functional strength through movement M6 PT-IP Treatment Start: 05/11/24 12:23 Freq: NEEDED Status: Active Protocol: Document 05/12/24 11:57 AB (Rec: 05/12/24 12:45 AB [id number]) Physical Therapy Treatment Education Education Provided Safety M7 PT-IP Assessment and Plan Start: 05/11/24 12:23 Freq: NEEDED Status: Active Protocol: Document 05/12/24 11:57 AB (Rec: 05/12/24 12:45 AB [id number]) PT Summary Assessment and Plan Potential Rehabilitation Potential Fair Summary Impairments Pain,ROM,Strength,Balance,Tone ,Cognition,Bed Mobility, Transfers,Gait,Activity Tolerance Progress Towards Goals Slow Progress due to Activity Tolerance Assessment Summary pt requiring CGA to min A with ambulation using FWW and presents with decrease activity tolerance with O2 sat at ~ 77% after ambulation wth 3L/min O2 and needed increase time to recovery. pt will benefit from SNF rehab to improve overall strength and mobility independence. will continue to assess. Goals Bed Mobility Goal Independent Transfer Goal Independent,Front Wheeled Walker Gait Goal Independent,Standby Assistance ,Front Wheel Walker Gait Distance 100 feet Other Goals improve transfers and ambulation using 4WW ~ 150 ft mod I Days to Meet Goals 10 Frequency of Treatment Frequency Of Treatment Once a Day Treatment Plan Physical Therapy Treatment Plan Bed Mobility Training,Gait Training,Therapeutic Exercise, Balance Retraining,Post Op Education,Discharge Planning, Neuromuscular Re-ed Recommendations To Nursing Amount of Assist Needed 1 Person Assist Discharge Recommendations PT Discharge Recommendations SNF Rehab Transportation Needs at Discharge Private Vehicle,Wheelchair/ Cabulance
[2024-05-12] MEDS: GABAPENTIN 600 MG TABLET PO (14:17)
--- NOTE | 2024-05-12 14:30 | OT.IP.TRT ---
Current Diagnoses Acute on chronic systolic (congestive) heart failure (05/10/24) Occupational Therapy Treatment Note M2 OT-IP Current Condition Start: 05/11/24 15:43 Freq: Status: Active Protocol: Document 05/11/24 15:44 [facility] (Rec: 05/11/24 16:05 [facility] [id number]) Occupational Therapy Current Condition Current Condition Evaluation Date 05/11/24 Treatment Diagnosis Acute respiratory failure with hypoxia Diagnosis Onset Date 05/10/24 M3 OT- IP Subjective and Pain Start: 05/11/24 15:43 Freq: Status: Active Protocol: Document 05/12/24 14:33 [facility] (Rec: 05/12/24 14:44 [facility] [id number]) OT- Subjective Occupational Therapy Visit Type Type Treatment Note Visit Start Time 14:03 Visit Stop Time 14:30 Occupational Therapy Visit Comments Patient Comments Pt wanting to get back to bed and agreed to do SLUMS assessment. Patient/Caregiver Goals TO get better and now thinking about possibility to go to skilled rehab. OT Pain Assessment Pain When Pain Assessed At Rest Pain Present Pain Present Denied Pain M4 OT- IP ADL's Start: 05/11/24 15:43 Freq: Status: Active Protocol: Document 05/12/24 14:33 [facility] (Rec: 05/12/24 14:44 [facility] [id number]) OT YYC-Aofu-Hlfirhr Comments OT Self-Feeding Comments Noted saliva on the corners of her mouth, asked pt if she was having any difficulty with swallowing or eating needs- pt denies any issues. OT ADL-Grooming Comments OT Grooming Comments Not performed. OT ADL-Oral Care Comments Oral Care Comments Not performed. OT ADL-Dressing General Eval Lower Body Dressing Ability Maximum Assistance Areas Needing Assistance Socks OT ADL-Toileting General Evaluation Toileting Ability Total Assistance Comments OT Toileting Comments Use of purewick. OT ADL-Bathing Comments OT Bathing Comments Pt would benefit from assist at this time. M5 OT- IP IADL's Start: 05/11/24 15:43 Freq: Status: Active Protocol: Document 05/11/24 15:44 [facility] (Rec: 05/11/24 16:05 [facility] [id number]) OT-Instrumental Activities of Daily Living Home Safety Awareness Home Safety Comments TO further assess. Pt states able to call for assistance at her facility if needed. Meal Preparation Meal Preparation Caregiver Provides Assist M6 OT- IP Functional Cognition Start: 05/11/24 15:43 Freq: Status: Active Protocol: Document 05/12/24 14:33 [facility] (Rec: 05/12/24 14:44 [facility] [id number]) Cognitive Factors Limiting Selfcare Function Cognitive Ability Level of Alertness Alert,Confusional State Attention Span Ability Capable of Focused Attention, Unable to Sustain Attention Ability to Follow Commands Able to Follow One Step Commands with Increased Time, Able to Follow One Step Commands with Repetition Memory Description Short Term Impaired,Working Impaired Cognitive Tests SLUMS Pt scored 14/30 , pt not able to add 3+20 or subtraction of 100-23, pt just able to recall 3 animals in one minute, not able to recall any of the 5 objects after time passed, pt not able to states 4 digit number backwards, pt not able to draw the numbers of the clock correctly or hour hands, pt not able to place an x on the triangle or identify the largest shape. Cognitive Comments Cognitive Assessment Comments Pt scored 14/30 on the SLUMS which implies dementia. Pt after assessment agreed that she is not thinking well as prior pt states was independent with meds, finances, etc. M7 OT- IP Mobility and Balance Start: 05/11/24 15:43 Freq: Status: Active Protocol: Document 05/12/24 14:33 [facility] (Rec: 05/12/24 14:44 [facility] [id number]) OT- Bed Mobility Assessment Sit to Supine Sit to Supine Assist Maximum Assistance OT-Transfer Assessment Sit to and From Stand Sit to and from Stand Maximum Assistance Transfers Transfer Ability Moderate Assistance Technique Transfer Destination Bed,Chair Transfer Technique Stand Step Pivot Devices Transfer Assistive Devices Gait Belt,Front Wheeled Walker Comments Mobility Comments MODA to scoot to the edge of the chair and MAX AX 1 to stand and MODA x1 to transfer to the bed. Pt needing more assist today versus yesterday. OT- Balance Assessment Sitting Balance and Reactions Static Sitting Balance Ability Fair Dynamic Sitting Balance Ability Fair Standing Balance and Reactions Static Standing Balance Ability Poor Dynamic Standing Balance Ability Poor Comments Other Balance Tests/Deviations/Treatment Pt more unsteady on her feet : today and moving slower. At this time best for pt to go to skilled rehab. M8 OT- IP Objective Assessments Start: 05/11/24 15:43 Freq: Status: Active Protocol: Document 05/11/24 15:44 [facility] (Rec: 05/11/24 16:05 [facility] [id number]) OT Gross Range of Motion Upper Extremity Range of Motion ROM Impairments grossly WFL OT Strength Upper Extremity Strength Assessment Within Functional Limits Comments Strength Comments WFL for needs at least 4-/5 OT- Coordination Assessment Upper Extremity Finger to Nose Test Within Functional Limits M9 OT- IP Assessment and Plan Start: 05/11/24 15:43 Freq: Status: Active Protocol: Document 05/12/24 14:33 [facility] (Rec: 05/12/24 14:44 [facility] [id number]) OT Summary Assessment and Plan Potential Rehabilitation Potential Good Analytic Complexity at Evaluation Moderate Summary Progress Towards Goals Slow Progress due to Medical Issues,Slow Progress due to Activity Tolerance,Slow Progress due to Cognition Assessment Summary Pt scored 14/30 on the SLUMS which implies dementia and having more difficulty with her mobility today. Pt will benefit from skilled rehab at this time.Pt still on O2 at this time. Goals Self-Feeding Goal Independent Grooming Goal Independent Dressing Goal Independent Toileting Goal Independent Bathing Goal Standby Assistance Toilet Transfer Goal Independent Shower Transfer Goal Standby Assistance Days to Meet Goals 20 Frequency of Treatment Other frequency 5x/week Treatment Plan OT Treatment Plan ADL Training,Functional Cognition Training,Functional Mobility,Patient/Family Education,Discharge Planning Discharge Recommendations OT Discharge Recommendations SNF Rehab Transportation Needs at Discharge Wheelchair/Cabulance
--- NOTE | 2024-05-12 16:05 | CM.DPNOTE ---
DCP Note [facility] reviewed EMR per nursing staff, pt somnolent though out day. PT/OT report a decline as well, now rec SNF. remains on 1.5/2ltrs O2 throughout day. pt sleeping heavily during attempted assessments from this [facility] M[facility] today. unable to connect with dtr due to triaging needs. P: CM team will make SNF referrals pending pt/dtr preference, vs HH. SHAWANDA unknown at this time, likely another few days. CM team will continue to follow closely KATHLEEN Martínez
--- NOTE | 2024-05-12 20:28 | DI.RAD.S_ITS ---
PROCEDURE: XR CHEST 1V INDICATIONS: chf, hypotension, sob TECHNIQUE: One view of the chest was acquired. COMPARISON: [facility], CR, XR CHEST 1V, 05/10/2024, 18:09. [facility], CR, XR CHEST 1V, 11/20/2023, 11:23. FINDINGS: Surgical changes and devices: Epigastric surgical clips Lungs and pleura: No significant change in appearance of small bilateral pleural effusions with associated passive atelectasis of the lower lobes. Mediastinum: Mediastinal contours appear normal. Cardiomegaly. Hiatal hernia. Bones and chest wall: Diffuse osseous demineralization. No suspicious bony lesions. Overlying soft tissues appear unremarkable. IMPRESSION: No significant change in appearance of small bilateral pleural effusions and passive atelectasis of the lower lobes. Dictated by: Juan Iverson M.D. on 05/12/2024 at 22:22 Approved by: Juan Iverson M.D. on 05/12/2024 at 22:24
[2024-05-12] MEDS: SODIUM CHLORIDE 0.9% 500 ML 1000 ML IV (20:30)
--- NOTE | 2024-05-12 20:30 | EKG_ITS ---
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
[2024-05-12] MEDS: DIGOXIN 500 MCG/2 ML AMPUL IV (21:06)
--- NOTE | 2024-05-12 21:09 | P.EN_ITS ---
Event Note Date Patient Seen: 05/12/24 Time Patient Seen: 21:09 Event Note (Rapid Response, Code, or fall): Patient was found earlier this evening to be hypotensive with an increased oxygen requirement. She was found to be tachycardic and irregularly irregular. IV fluid bolus was started 12 lead ECG was obtained which demonstrated atrial fibrillation with rapid ventricular response in the 160 range. Telemetry was also initiated which confirmed heart rate between 140s and 160s Blood pressure some better with some IV fluids. Chest x-ray done appears to be grossly unchanged by my interpretation, no evidence of effusion, no infiltrate, no pneumothorax etcetera. Persistence changes consistent with pulmonary edema although difficult to interpret because of patient's body habitus Unfortunately we do not have an ICU bed available at all in this institution at this time. I am going to start by giving her some IV digoxin in effort to slower heart rate down. I believe her hypotension that is more likely than not secondary to the tachycardia in the setting of her known cardiomyopathy. If we can slow down I think she will do far better. I am going to hold any medications may negatively affect her blood pressure including her Entresto, her metoprolol, and of course her furosemide. She may have had too much in the way of diuresis I did discuss with patient 1 more time her wishes regarding resuscitation. Discussed with her that [address] to correct her heart rate [place] shock her heart back to a normal rhythm or least attempt to do that with no guarantees that would work. Also talked to her about other resuscitative efforts including CPR and intubation. She was very clear now as she has been in the past that she would not want any of those things done including an attempt at cardioversion now to convert her to a normal rhythm. Therefore next step if we are not able to slow her heart down with digoxin would be something like amiodarone. Will see what we can do about perhaps finding staffing and or location in the hospital to initiate amiodarone infusion if necessary. The atrial fibrillation is new for her. Labs are pending at time of this dictation looking for electrolyte disturbances although there were perfectly fine this morning. Renal function was normal this morning. Obviously, as I am dictating this, it occurs to me that patient is tremendously much more awake and alert than she has been through much of the day. Much of he r altered mental status and somnolence really must have been exhaustion. She seems to be her normal cognitive self at the current time. We will continue to try and support her with IV fluids and rate control as well as supplemental oxygen. Critical care time spent with the patient on the floor reviewing her medical record placing orders interacting with nursing staff was least 30 minutes beginning at 20:55 and ending no earlier than 21:30
[2024-05-12 21:41] LABS: Blood Urea Nitrogen 27 mg/dL (7-17); Calcium 8.1 mg/dL (8.4-10.2); Carbon Dioxide 35 mmol/L (22-32); Chloride 94 mmol/L (98-107); Estimated Glomerular Filt Rate 53 mL/min (>60); Glucose 115 mg/dL (80-110); Magnesium 1.9 mg/dL (1.6-2.3); Potassium 4.7 mmol/L (3.4-5.1); Sodium 136 mmol/L (137-145)
[2024-05-12 21:45] LABS: Add Manual Diff / Slide Review NO; Basophils Absolute Auto 0 /uL (0-100); Basophils Percent Auto 0.3 % (0-2); Eosinophils Absolute Auto 0 /uL (0-450); HEMOLYSIS 201 (0-50); Hematocrit 45.8 % (36-46); Hemoglobin 14.1 g/dL (12.0-16.0); Lymphocytes Absolute Auto 800 /uL (1100-4500); Mean Corpuscular HGB Conc 30.9 % (30-36); Mean Corpuscular Hemoglobin 31.3 PG (26-34); Mean Corpuscular Volume 101.4 fL (80-100); Monocytes Absolute Auto 800 /uL (0-900); Monocytes Percent Auto 11.3 % (3-14); Neutrophils Absolute Auto 5500 /uL (1500-7000); Neutrophils Percent Auto 77.4 % (50-75); Platelet Count 182 X10^3/uL (150-400); Red Blood Cell Count 4.51 X10^6/uL (4.0-5.2); Red Cell Distribution Width 15.7 % (11.6-14.8); White Blood Cell Count 7.1 X10^3/uL (4.5-11.0)
[2024-05-13] VITALS (9 sets, daily range): BP systolic 104–150; BP diastolic 56–90; PULSE 73–150; RESP 15–20; TEMP 36.4–36.7; O2SAT 88–96
[2024-05-13] MEDS: DIGOXIN 500 MCG/2 ML AMPUL 250 MCG IV (00:09)
--- NOTE | 2024-05-13 03:09 | PC.NURSE ---
Addendum entered by Bennie Randle R.N. 05/13/24 04:28: 0428: patient has had no urine this shift so far, bladder scan reading about 200ml. Dr. Castaneda called and made aware, no new orders at this time. Original Note: 2014: BP 76/52, heart rate irregularly irregular 150s, unable to get pulse ox reading due to cold fingers. Patient A&Ox3, denies SOB, dizziness. RT called to bedside to assist with pulse oximeter. Dr. Castaneda called, orders for chest xray, 12 lead, and 500mg NS bolus. 2029: Patient placed on telemetry, reading afib RVR 160s. 2037: Rapid response called. Dr. Castaneda called again, came to bedside, see MAR and lab orders. 94/55, HR 166, RR 23.
[2024-05-13 06:45] LABS: BUN Creatinine Ratio 28.3 (6-22); Blood Urea Nitrogen 28 mg/dL (7-17); Calcium 8.4 mg/dL (8.4-10.2); Chloride 94 mmol/L (98-107); Estimated Glomerular Filt Rate 56 mL/min (>60); Glucose 112 mg/dL (80-110); HEMOLYSIS < 15 (0-50); Potassium 4.3 mmol/L (3.4-5.1); Sodium 141 mmol/L (137-145)
[2024-05-13 06:53] LABS: Carbon Dioxide 42 mmol/L (22-32)
[2024-05-13] MEDS: FERROUS SULFATE 325 MG TABLET PO (07:37)
[2024-05-13] MEDS: ENOXAPARIN 40 MG/0.4 ML SYRINGE SUBCUT (07:37)
[2024-05-13] MEDS: PANTOPRAZOLE DR 40 MG TABLET PO (07:37)
[2024-05-13] MEDS: HYDROCODONE/ACET 5/325 TABLET 1 TAB PO (09:38)
--- NOTE | 2024-05-13 10:02 | PM.PN.1 ---
Subjective Subjective Date Patient Seen: 05/13/24 Time Patient Seen: 10:02 Interval history: Patient went into atrial fibrillation sometime yesterday evening. Her heart rate increased significantly due to this averaging between 150 and 165. Her blood pressure plummeted with this clearly her cardiac function did not tolerate the accelerated heart rate. Digoxin was administered because of the relative hypotension. IV fluids also seem to improve her blood pressure. With the digoxin her rate was better controlled in the 90-110 range and blood pressure seem much better even after a bolus of IV fluids came to an end. 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 This morning maintaining oxygen saturation easily at 93% on 1-1.5 L via nasal cannula Patient was awake and alert and able to discuss her code status options of shocking her heart back to normal rhythm etcetera with me during her hypotensive episode last evening. She also expressed being hungry since she was slept through breakfast and even lunch. Exam Vital Signs (past 8 hours): - 05/13/24 04:20 05/13/24 07:41 05/13/24 08:00 Temperature 97.8 F 98.1 F Pulse Rate 123 H 93 H Respiratory Rate 20 15 Blood Pressure 139/65 143/90 H Pulse Oximetry 92 90 L 93 Oxygen Delivery Method Oxygen Flow Rate 0 2 1.5 Fraction of Inspired Oxygen 05/13/24 08:37 Temperature Pulse Rate Respiratory Rate Blood Pressure Pulse Oximetry 93 Oxygen Delivery Method Nasal Cannula Oxygen Flow Rate 1.5 Fraction of Inspired Oxygen 26 Fraction of Inspired Oxygen 26 SaO2/FiO2 Ratio 357 Oxygen Delivery Method Nasal Cannula Oxygen Flow Rate 1.5 Objective Labs 05/12/24 20:57 05/13/24 05:25 Labs: Laboratory Results - last 24 hr 05/12/24 05/12/24 05/12/24 11:36 11:45 20:57 WBC 7.1 RBC 4.51 Hgb 14.1 Hct 45.8 MCV 101.4 H MCH 31.3 MCHC 30.9 RDW 15.7 H Plt Count 182 Neut % (Auto) 77.4 H Lymph % (Auto) 11.0 L Prentiss % (Auto) 11.3 Eos % (Auto) 0.0 L Baso % (Auto) 0.3 Neut # (Auto) 5500 Lymph # (Auto) 800 L Prentiss # (Auto) 800 Eos # (Auto) 0 Baso # (Auto) 0 ABG Sample Site Right brachial Left radial ABG pH 7.39 7.35 ABG pCO2 81.1 H* 79.8 H* ABG pO2 47 L* 74 L ABG HCO3 49 H 44 H ABG Total CO2 > 50 H 46 H ABG O2 Saturation 79 L* 93 L ABG Base Excess 18.1 H 14.1 H Gerard Test N/a Positive O2 Delivery Device Cannula Cannula FiO2 % 32 % Sodium 136 L Potassium 4.7 Chloride 94 L Carbon Dioxide 35 H BUN 27 H Creatinine 1.04 Estimated GFR 53 L BUN/Creatinine Ratio 26.0 H Glucose 115 H Calcium 8.1 L Magnesium 1.9 05/13/24 05:25 WBC RBC Hgb Hct MCV MCH MCHC RDW Plt Count Neut % (Auto) Lymph % (Auto) Prentiss % (Auto) Eos % (Auto) Baso % (Auto) Neut # (Auto) Lymph # (Auto) Prentiss # (Auto) Eos # (Auto) Baso # (Auto) ABG Sample Site ABG pH ABG pCO2 ABG pO2 ABG HCO3 ABG Total CO2 ABG O2 Saturation ABG Base Excess Gerard Test O2 Delivery Device FiO2 % Sodium 141 Potassium 4.3 Chloride 94 L Carbon Dioxide 42 H* BUN 28 H Creatinine 0.99 Estimated GFR 56 L BUN/Creatinine Ratio 28.3 H Glucose 112 H Calcium 8.4 Magnesium 2.0 PFSH Medical History Cellulitis Left hip pain Greater trochanteric bursitis of left hip Myofascial pain Lumbar spondylosis Closed L1 vertebral fracture Cervical spondylosis Chronic neck pain Uncomplicated opioid dependence Chronic renal failure, stage 3a Chronic systolic (congestive) heart failure Glaucoma (~11/2016) Osteoporosis 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) History of duodenal ulcer History of gastrointestinal hemorrhage Essential hypertension Idiopathic scoliosis (07/03/11) Hiatal hernia (07/03/11) Chronic back pain Status post nephrectomy Social History marital status: number of children: 2 household members: none lives independently: Yes caregiver/support person: Yes housing: house pets and animals: Yes education level: college occupational status: other 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 Atrial fibrillation-this is a new diagnose for this patient. I presume secondary to perhaps some over-diuresis verses some other process, likely related to her biatrial enlargement and tricuspid regurgitation with elevated pulmonary artery pressures. She certainly did not tolerate accelerated heart rates very well at all. She was very clear she would not want to be cardioverted even emergently. Therefore will continue with medical management. Do not have access to the ICU at the current time and so will load her with oral amiodarone aiming for 6 g as a loading dose. Will administer 400 mg every 8 hours until 6 g has been achieved. This should help with the rate control as well as maybe help with cardioversion. After that either 400 mg daily or 200 mg daily depending on her response would be an appropriate next dose. I am going to hold off on any additional digoxin while loading her with the amiodarone but will reserve that for administration if she becomes more tachycardic. However if blood pressure supports it parental metoprolol could also be used for rate control in the short term. Given the amiodarone I am going to hold off on her usual scheduled metoprolol. 2. Acute on chronic congestive heart failure-I think she may have had less of an acute element than was anticipated. She has had over 4 L of urine out since admission and that maybe excessive. Will hold additional diuretics at this time. I am not going to give her additional IV fluids but allow her to hopefully replace fluids orally and monitor her status carefully over the next 24 hours. Thus far she was had limited urine output but again had 4+ L in the preceding 36 hours. Renal function is stable as are electrolytes so not overly worried about the limited urine output at this time. I think we can probably safely restart her Entresto as well which was held in the setting of blood pressure of 70 yesterday. 3. Chronic renal failure stage 3 a-patient's creatinine has actually been quite normal. Electrolytes and creatinine normal again this morning. Limited urine output as above but I think perhaps she was been a bit over diuresed. Will not replace with IV fluids and will tolerate limited urine output while allowing her hopefully to rehydrate orally. Plan to follow this carefully with repeat labs etcetera 4. Hypertension-patient was hypotensive yesterday. Seems to have rebounded back to a minimally hypertensive state now. Will restart her Entresto and monitor carefully. 5. Disposition-patient probably would be best limiting activity today while we try and get her atrial fibrillation and that is rate control improved. However will continue working with skilled therapies and depending on clinical course maybe not be able to return to previous living environment. Yesterday's evaluations are probably way off given her somnolence and then the development of the atrial fibrillation etcetera. Will see how she does moving forward over the next 48-72 hours Time-Based Coding :: [TOTAL MINUTES] spent with patient and on the chart (including review of chart, obtaining history, exam, reviewing outside data, placing orders, documenting exam and treatment plan, and counseling patient) on [DATE]. PROFEE Charge codes Subsequent inpatient/observation care: 47048 Critical Care: 54359 (Date of service for critical care was 05/12/2024, see event note)
[2024-05-13] MEDS: AMIODARONE 200 MG TABLET 400 MG PO ×2 (10:30→18:16)
[2024-05-13] MEDS: Sacubitril-Valsartan [Entresto] 49-51 mg tablet 1 EACH PO (10:30)
--- NOTE | 2024-05-13 13:59 | PT.IPTN ---
Current Diagnoses Acute on chronic systolic (congestive) heart failure (05/10/24) Physical Therapy Treatment Note M2 PT-IP Current Condition Start: 05/11/24 12:23 Freq: NEEDED Status: Active Protocol: Document 05/11/24 13:50 DCW (Rec: 05/11/24 14:35 DCW [id number]) Physical Therapy Current Condition Current Condition Evaluation Date 05/11/24 Treatment Diagnosis Fatigue, weakness Onset Date 05/10/24 M3 PT-IP Subjective Start: 05/11/24 12:23 Freq: NEEDED Status: Active Protocol: Document 05/13/24 14:38 TS (Rec: 05/13/24 14:45 TS [id number]) Subjective Physical Therapy Visit Type Type Treatment Note Visit Start Time 13:59 Visit Stop Time 14:37 Number of ACCESS TECH Visits 1 Physical Therapy Visit Comments Patient Comments Pt found resting in bed, is agreeable to PT. M4 PT-IP Mobility and Gait Start: 05/11/24 12:23 Freq: NEEDED Status: Active Protocol: Document 05/13/24 14:38 TS (Rec: 05/13/24 14:45 TS [id number]) PT-Bed Mobility Assessment Supine to Sit Supine to Sit Minimal Assistance,1 Person Assistance Scooting Scooting to Edge of Bed Contact Guard Assistance PT-Transfer Assessment Sit to and From Stand Sit to and from Stand Contact Guard Assistance, Minimal Assistance Equipment Transfer Assistive Device Gait Belt,Front Wheeled Walker Orthotic/Prosthetic Devices or Brace: No Comments Mobility Comments spo2 95% on 1L. Supine to sit Navjot for uprighting trunk. STS with FWW Navjot from EOB, pt has flexed posture in standing . She ambulates ~10' with FWW, requires to sit on the EOB. She agreed to walk again. She ambulates anotehr ~10'CGA with FWW, pt requests to use commode. Nursing assisted pt with pericare. She ambulates ~ 5 to the chair, SPo2 in the chair mid 70's, pt denies SOB. increased o2 to 3L's, pt recovers to low 90's quikcly. Pt was left in the chair all needs met. Gait Assessment Gait Gait Assistance Required: Contact Guard Assist,Minimum Assistance Distance (Feet) 25 Able to Maintain Weight Bearing Status Yes During Gait Assistive Devices Assistive Device Gait Belt,Front Wheeled Walker Orthotic/Prosthetic Devices or Brace: No Gait Deviations General Gait Pattern Antalgic,Decreased Stride Length,Decreased Feet Clearance,Flexed Trunk Factors Limiting Gait Function Factors Limiting Gait Function Decreased Activity Tolerance, Decreased Strength,Difficulty Following Directions,Limited Range of Motion,Pain,Poor Balance,Poor Safety Awareness PT-Balance Assessment Sitting Balance and Reactions Static Sitting Balance Ability Fair Dynamic Sitting Balance Ability Fair Standing Balance and Reactions Static Standing Balance Ability Fair Dynamic Standing Balance Ability Poor Device Used FWW M5 PT-IP Objective Assessments Start: 05/11/24 12:23 Freq: NEEDED Status: Active Protocol: Document 05/11/24 13:50 DCW (Rec: 05/11/24 14:35 DCW [id number]) Orientation Orientation/Cognition Level of Alertness Alert Orientation Name,Birthday,Place,Situation Language Function Ability No Deficits Noted Safety Awareness Understands Safety Issues Memory Description No Deficits Noted Strength Lower Extremity Strength Assessment Bilaterally Impaired Hip 3+ Knee 4- Comments Strength Comments Pt struggled lifting legs against gravity in supine, but after getting up and moving around, was able to demonstrate reasonable functional strength through movement M6 PT-IP Treatment Start: 05/11/24 12:23 Freq: NEEDED Status: Active Protocol: Document 05/13/24 14:38 TS (Rec: 05/13/24 14:45 TS [id number]) Physical Therapy Treatment Education Education Provided Safety M7 PT-IP Assessment and Plan Start: 05/11/24 12:23 Freq: NEEDED Status: Active Protocol: Document 05/13/24 14:38 TS (Rec: 05/13/24 14:45 TS [id number]) PT Summary Assessment and Plan Potential Rehabilitation Potential Fair Summary Impairments Pain,ROM,Strength,Balance,Tone ,Cognition,Bed Mobility, Transfers,Gait,Activity Tolerance Progress Towards Goals Slow Progress due to Activity Tolerance Assessment Summary Fadumo is making slow progress with her mobility. She requires max cues for most mobility. Her activity tolerance remains low and her o2 desats to mid 70's with mobility. She denies any SOB. PT continues to recommend SNF. Goals Bed Mobility Goal Independent Transfer Goal Independent,Front Wheeled Walker Gait Goal Independent,Standby Assistance ,Front Wheel Walker Gait Distance 100 feet Other Goals improve transfers and ambulation using 4WW ~ 150 ft mod I Days to Meet Goals 10 Frequency of Treatment Frequency Of Treatment Once a Day Treatment Plan Physical Therapy Treatment Plan Bed Mobility Training,Gait Training,Therapeutic Exercise, Balance Retraining,Post Op Education,Discharge Planning, Neuromuscular Re-ed Recommendations To Nursing Amount of Assist Needed 1 Person Assist Discharge Recommendations PT Discharge Recommendations SNF Rehab Transportation Needs at Discharge Private Vehicle,Wheelchair/ Cabulance
--- NOTE | 2024-05-13 16:29 | CM.DPNOTE ---
DCP Note GUM MACHINE FILLER reviewed EMR. Per chart, pt had a rapid response called overnight. hypotensive, tachycardic, and afib with RVR. per Leonel note, likely should have been ICU but no beds available. per Dr. Castaneda note, best to limit activity today until HR better controlled. Dr. Castaneda wants to see how pt does with therapies over next 48-72 hrs. Per TAX REPRESENTATIVE note, continue to rec SNF. GUM MACHINE FILLER attempted to meet with ptx2, sleeping heavily. due to cited exhaustion by Dr. Castaneda and triaging needs, allowed to rest. P: CM team will make SNF referrals pending pt/dtr preference, vs HH. SHAWANDA unknown at this time, likely another few days. CM team will continue to follow closely KATHLEEN Martínez
[2024-05-14] VITALS (8 sets, daily range): BP systolic 143–169; BP diastolic 68–87; PULSE 72–88; RESP 16–20; TEMP 36.4–36.6; O2SAT 86–93
[2024-05-14] MEDS: AMIODARONE 200 MG TABLET 400 MG PO ×3 (02:13→18:20)
[2024-05-14 05:17] LABS: BUN Creatinine Ratio 39.1 (6-22); Blood Urea Nitrogen 25 mg/dL (7-17); Calcium 8.9 mg/dL (8.4-10.2); Chloride 95 mmol/L (98-107); Estimated Glomerular Filt Rate > 60 mL/min (>60); Glucose 110 mg/dL (80-110); Potassium 4.2 mmol/L (3.4-5.1); Sodium 139 mmol/L (137-145)
[2024-05-14 05:23] LABS: Carbon Dioxide 39 mmol/L (22-32); HEMOLYSIS 19 (0-50)
[2024-05-14] MEDS: PANTOPRAZOLE DR 40 MG TABLET PO (06:03)
[2024-05-14 06:26] LABS: Thyroid Stimulating Hormone 2.05 uIU/mL (0.47-4.68)
[2024-05-14] MEDS: Sacubitril-Valsartan [Entresto] 49-51 mg tablet 1 EACH PO ×2 (08:06→20:08)
[2024-05-14] MEDS: ENOXAPARIN 40 MG/0.4 ML SYRINGE SUBCUT (08:06)
[2024-05-14] MEDS: FERROUS SULFATE 325 MG TABLET PO (08:06)
[2024-05-14] MEDS: SODIUM CHLORIDE 0.9% FLUSH 10 ML IV ×2 (08:07→20:08)
--- NOTE | 2024-05-14 09:46 | P.PN_ITS ---
Subjective Subjective Date Patient Seen: 05/14/24 Time Patient Seen: 09:47 Interval history: Basically uneventful day yesterday. Patient's slept off and on. Was seen by Physical therapy who continues to recommend care home placement Borderline hypoxic at times with significant desaturation with any activity Patient has returned to sinus rhythm as well, which means Heart rate much better controlled. Blood pressure on the high side. Exam Vital Signs (past 8 hours): - 05/14/24 04:00 05/14/24 08:00 Temperature 97.6 F 97.9 F Pulse Rate 72 78 Respiratory Rate 20 16 Blood Pressure 159/68 H 157/76 H Pulse Oximetry 92 86 L Oxygen Flow Rate 1 1 Fraction of Inspired Oxygen 24 SaO2/FiO2 Ratio 375 Oxygen Delivery Method Nasal Cannula Oxygen Flow Rate 1 Objective Labs 05/12/24 20:57 05/14/24 04:36 Labs: Laboratory Results - last 24 hr 05/14/24 04:36 Sodium 139 Potassium 4.2 Chloride 95 L Carbon Dioxide 39 H BUN 25 H Creatinine 0.64 Estimated GFR > 60 BUN/Creatinine Ratio 39.1 H Glucose 110 Calcium 8.9 Magnesium 2.0 TSH 2.05 PFSH Medical History Cellulitis Left hip pain Greater trochanteric bursitis of left hip Myofascial pain Lumbar spondylosis Closed L1 vertebral fracture Cervical spondylosis Chronic neck pain Uncomplicated opioid dependence Chronic renal failure, stage 3a Chronic systolic (congestive) heart failure Glaucoma (~11/2016) Osteoporosis 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) History of duodenal ulcer History of gastrointestinal hemorrhage Essential hypertension Idiopathic scoliosis (07/03/11) Hiatal hernia (07/03/11) Chronic back pain Status post nephrectomy Social History marital status: number of children: 2 household members: none lives independently: Yes caregiver/support person: Yes housing: house pets and animals: Yes education level: college occupational status: other 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 Atrial fibrillation-patient now in sinus rhythm. Continue with amiodarone load orally. As noted before I am not anticoagulating her because of her history of significant GI bleed thought to be secondary to Sergey lesions. Patient is on a proton pump inhibitor at this point, but I feel like the risk outweighs the benefit especially when combined with the risk of falls etcetera given her limited mobility. (Okay for low-dose Lovenox for VTE prophylaxis while in a hospital setting however) 2. Acute on chronic congestive heart failure-patient was limited urine output yesterday. Renal function remains normal this morning. Continue to monitor for now. 3. Chronic renal failure stage 3 a-patient's creatinine has actually been quite normal. Electrolytes and creatinine normal again this morning. Limited urine output as above but I think perhaps she was been a bit over diuresed. Will not replace with IV fluids and will tolerate limited urine output while allowing her hopefully to rehydrate orally. Plan to follow this carefully with repeat labs etcetera 4. Hypertension-patient's hypotension has resolved as her heart rates been better controlled. Patient restarted on Entresto yesterday. Probably would benefit from additional medication for blood pressure. Patient normally takes metoprolol, make cautiously try limited doses of immediate release metoprolol see if we can control blood pressure that way, especially now that she is back in sinus rhythm 5. Hypoxia-no clear etiology for hypoxia at this point beyond maybe some minor congestive heart failure of course her body habitus. She appears to have some degree of chronic respiratory acidosis based on her ABG earlier in the hospital stay as well as her BNP chronically with elevated bicarb level. This is not surprising given her anatomy with limited size of her chest etcetera. Plan to try and get repeat chest x-ray tomorrow morning to rule out something such as pneumonia etcetera. For now continue off diuretics and no clear evidence of infectious process no antibiotics indicated. Fortunately echocardiogram was essentially unchanged from previous when checked before she went into atrial fibrillation. 6. Disposition-patient clearly is going to need placement in care home when ready for discharge. Still need to monitor her atrial fibrillation and evaluate her hypoxia more carefully over the next several days. Do not really anticipate she will be medically ready for discharge in less than 48-72 hours Time-Based Coding :: [TOTAL MINUTES] spent with patient and on the chart (including review of chart, obtaining history, exam, reviewing outside data, placing orders, documenting exam and treatment plan, and counseling patient) on [DATE]. PROFEE Charge codes Subsequent inpatient/observation care: [id number]
[2024-05-14] MEDS: METOPROLOL IR 25 MG TABLET PO ×2 (11:24→20:08)
--- NOTE | 2024-05-14 14:20 | PT.IPTN ---
Current Diagnoses Acute on chronic systolic (congestive) heart failure (05/10/24) Physical Therapy Treatment Note M2 PT-IP Current Condition Start: 05/11/24 12:23 Freq: NEEDED Status: Active Protocol: Document 05/11/24 13:50 DCW (Rec: 05/11/24 14:35 DCW [id number]) Physical Therapy Current Condition Current Condition Evaluation Date 05/11/24 Treatment Diagnosis Fatigue, weakness Onset Date 05/10/24 M3 PT-IP Subjective Start: 05/11/24 12:23 Freq: NEEDED Status: Active Protocol: Document 05/14/24 13:40 MB (Rec: 05/14/24 14:20 MB [id number]) Subjective Physical Therapy Visit Type Type Treatment Note Visit Start Time 13:40 Visit Stop Time 14:10 Number of UTILIZATION MANAGER Visits 0 Physical Therapy Visit Comments Patient Comments Pt hook lying in bed and agreeable to PT. Pt reports she prefers to return to [facility] and not to go to SNF. M4 PT-IP Mobility and Gait Start: 05/11/24 12:23 Freq: NEEDED Status: Active Protocol: Document 05/14/24 13:40 MB (Rec: 05/14/24 14:20 MB [id number]) PT-Bed Mobility Assessment Rolling Type of Rolling Bilateral Level of Assist Maximal Assistance Supine to Sit Supine to Sit Minimal Assistance,1 Person Assistance,Head of Bed Elevated,Bedrails Scooting Scooting to Edge of Bed Maximum Assistance PT-Transfer Assessment Sit to and From Stand Sit to and from Stand Moderate Assistance,1 Person Assistance,Use of Upper Extremities Equipment Transfer Assistive Device Gait Belt,Front Wheeled Walker Orthotic/Prosthetic Devices or Brace: No Transfers Transfer Destination Chair Transfer Technique Stepping Transfer Ability Level of Assist Moderate Assistance,1 Person Assistance,Use of Upper Extremities Comments Mobility Comments O2 sats on 1L O2 drop to 86-87 % with rolling, scooting and after stepping to chair. Sats then increase to the low 90s. Pt with bowel incontinence and not aware of this upon arrival. +2 assistance to clean (dependent). Gait Assessment Gait Gait Assistance Required: Moderate Assistance,1 Person Assist Distance (Feet) 2 Able to Maintain Weight Bearing Status Yes During Gait Assistive Devices Assistive Device Gait Belt,Front Wheeled Walker Orthotic/Prosthetic Devices or Brace: No Gait Deviations General Gait Pattern Antalgic,Decreased Stride Length,Decreased Feet Clearance,Flexed Trunk Factors Limiting Gait Function Factors Limiting Gait Function Decreased Activity Tolerance, Decreased Strength,Difficulty Following Directions,Limited Range of Motion,Pain,Poor Balance,Poor Safety Awareness Comments Gait Comments Pt with severe kyphoscoliosis and PT lowered RW today to lowest level and it is still a little too high for pt PT-Balance Assessment Sitting Balance and Reactions Static Sitting Balance Ability Fair Dynamic Sitting Balance Ability Fair Standing Balance and Reactions Static Standing Balance Ability Fair Dynamic Standing Balance Ability Poor Device Used FWW M5 PT-IP Objective Assessments Start: 05/11/24 12:23 Freq: NEEDED Status: Active Protocol: Document 05/11/24 13:50 DCW (Rec: 05/11/24 14:35 DCW [id number]) Orientation Orientation/Cognition Level of Alertness Alert Orientation Name,Birthday,Place,Situation Language Function Ability No Deficits Noted Safety Awareness Understands Safety Issues Memory Description No Deficits Noted Strength Lower Extremity Strength Assessment Bilaterally Impaired Hip 3+ Knee 4- Comments Strength Comments Pt struggled lifting legs against gravity in supine, but after getting up and moving around, was able to demonstrate reasonable functional strength through movement M6 PT-IP Treatment Start: 05/11/24 12:23 Freq: NEEDED Status: Active Protocol: Document 05/14/24 13:40 MB (Rec: 05/14/24 14:20 MB [id number]) Physical Therapy Treatment Education Education Provided Safety M7 PT-IP Assessment and Plan Start: 05/11/24 12:23 Freq: NEEDED Status: Active Protocol: Document 05/14/24 13:40 MB (Rec: 05/14/24 14:20 MB [id number]) PT Summary Assessment and Plan Potential Rehabilitation Potential Fair Status of Condition at Evaluation Evolving Summary Impairments Pain,ROM,Strength,Balance,Tone ,Cognition,Bed Mobility, Transfers,Gait,Activity Tolerance Progress Towards Goals Slow Progress due to Activity Tolerance Assessment Summary Slow progress with mobility and O2 desaturaion on 1L O2 today to 86-87%. Recommend SNF at d/c. Goals Bed Mobility Goal Independent Transfer Goal Independent,Front Wheeled Walker Gait Goal Independent,Standby Assistance ,Front Wheel Walker Gait Distance 100 feet Other Goals improve transfers and ambulation using 4WW ~ 150 ft mod I Days to Meet Goals 10 Frequency of Treatment Frequency Of Treatment Once a Day Treatment Plan Physical Therapy Treatment Plan Bed Mobility Training,Transfer Training,Gait Training, Therapeutic Exercise,Balance Retraining,Post Op Education, Discharge Planning, Neuromuscular Re-ed Recommendations To Nursing Amount of Assist Needed 1 Person Assist Discharge Recommendations PT Discharge Recommendations SNF Rehab Transportation Needs at Discharge Private Vehicle,Wheelchair/ Cabulance
--- NOTE | 2024-05-14 14:34 | CM.DPNOTE ---
Addendum entered by KATHLEEN Martínez 05/14/24 14:43: Add to previous Note: Per PT, pt incontinent of stool. This is not pt's baseline. Per RN, dtr had reported to nursing that pt seems way below baseline in overall functioning at this time. SL Original Note: DCP Note CONTROLLER COAL OR ORE reviewed EMR. Per Dr. Castaneda note, returned to sinus rhythm, HR better. BP remains high. anticipate another 48-72hrs until medically stable for DC. in agreement with SNF plan. plan for repeat Chest Xray tomorrow for pneumonia r/o. CONTROLLER COAL OR ORE met with pt in room. reports to this CONTROLLER COAL OR ORE not interested in SNF placement. Not interested in increasing level of care at [facility]. reports everything is okay at home. When this CONTROLLER COAL OR ORE pointed out the amount of assist she's been needing at the hospital during her admission, she continues to insist she will do okay returning to [facility]. PT entered room during DCP conversation, pt agreed to see how she does with PT/OT over next day and think about SNF placement. Hx of SV, does not want to return. Per RN, pt's dtr Matthewsanchoshar was in room earlier, reports pt's other dtr Marina plans to come [place] to be with pt at mt/help with the barge captain plan??? Per PT Steph after their session pt was much more open to SNF placement. CM team will meet with pt/dtr Wednesday and place referrals per preference ([facility], [facility], and [facility] all contracted with her ins). PASRR needed. Coordinate with [facility] staff as neeeded P: anticipate SNF Wed?/when medically stable. referrals/auth/PASRR/transport needed. likely could tolerate private vehicle to transport. Follow closely KATHLEEN Martínez
[2024-05-15] VITALS (8 sets, daily range): BP systolic 127–170; BP diastolic 71–87; PULSE 64–77; RESP 19–22; TEMP 36.3–36.6; O2SAT 89–95
[2024-05-15] MEDS: AMIODARONE 200 MG TABLET 400 MG PO ×3 (01:47→19:55)
[2024-05-15] MEDS: PANTOPRAZOLE DR 40 MG TABLET PO (05:32)
[2024-05-15 05:38] LABS: Add Manual Diff / Slide Review NO; Basophils Absolute Auto 0 /uL (0-100); Basophils Percent Auto 0.5 % (0-2); Eosinophils Absolute Auto 0 /uL (0-450); Eosinophils Percent Auto 0.1 % (2-4); Hematocrit 41.4 % (36-46); Hemoglobin 13.2 g/dL (12.0-16.0); Lymphocytes Absolute Auto 400 /uL (1100-4500); Lymphocytes Percent Auto 5.7 % (25-40); Mean Corpuscular HGB Conc 31.9 % (30-36); Mean Corpuscular Hemoglobin 31.2 PG (26-34); Mean Corpuscular Volume 97.8 fL (80-100); Monocytes Absolute Auto 400 /uL (0-900); Monocytes Percent Auto 6.9 % (3-14); Neutrophils Absolute Auto 5400 /uL (1500-7000); Neutrophils Percent Auto 86.8 % (50-75); Platelet Count 159 X10^3/uL (150-400); Red Blood Cell Count 4.23 X10^6/uL (4.0-5.2); Red Cell Distribution Width 15.1 % (11.6-14.8); White Blood Cell Count 6.2 X10^3/uL (4.5-11.0)
[2024-05-15 05:51] LABS: BUN Creatinine Ratio 37.9 (6-22); Blood Urea Nitrogen 22 mg/dL (7-17); Calcium 8.9 mg/dL (8.4-10.2); Chloride 96 mmol/L (98-107); Estimated Glomerular Filt Rate > 60 mL/min (>60); Glucose 115 mg/dL (80-110); HEMOLYSIS 15 (0-50); Magnesium 1.9 mg/dL (1.6-2.3); Potassium 4.1 mmol/L (3.4-5.1); Sodium 138 mmol/L (137-145)
[2024-05-15 05:58] LABS: Carbon Dioxide 38 mmol/L (22-32)
[2024-05-15 06:26] LABS: NT-proBNP (BNP-Adult 18+) 17300 pg/mL (<450)
--- NOTE | 2024-05-15 07:00 | DI.RAD.S_ITS ---
PROCEDURE: XR CHEST 1V INDICATIONS: hypoxia TECHNIQUE: One view of the chest was acquired. COMPARISON: [facility], CR, XR CHEST 1V, 05/12/2024, 20:45. FINDINGS: Surgical changes and devices: None. Lungs and pleura: There is pulmonary vascular congestion and small to moderate bilateral pleural effusion. Hazy ground-glass opacities in airspace opacities are seen throughout bilateral lung nelson suggestive of pulmonary edema and superimposed interstitial infiltrates. No pneumothorax. Mediastinum: Mediastinal contours appear normal. Heart size is enlarged. Bones and chest wall: No suspicious bony lesions. Overlying soft tissues appear unremarkable. IMPRESSION: Overall finding is more suggestive of CHF. Superimposed interstitial infiltrates cannot be excluded. No gross pneumothorax. Small to moderate bilateral pleural effusion. Dictated by: Michael Vallejo M.D. on 05/15/2024 at 8:06 Approved by: Michael Vallejo M.D. on 05/15/2024 at 8:07
--- NOTE | 2024-05-15 07:47 | PM.PN.1 ---
Subjective Subjective Date Patient Seen: 05/15/24 Time Patient Seen: 07:47 Interval history: Patient basically uneventful day yesterday. Somewhat hypertensive. Heart rate well controlled in sinus rhythm of course Worked with physical therapy yesterday. Still recommending long-term placement. Some intermittent hypoxia somewhat worse with activity although not as dramatic as seen previously Lab work this morning is unremarkable, except for significant elevated BNP. Chest x-ray consistent with somewhat more evidence of pulmonary edema than even admission chest x-ray (by my interpretation) Exam Vital Signs (past 8 hours): - 05/15/24 02:00 05/15/24 04:00 Temperature 97.8 F 97.6 F Pulse Rate 74 76 Respiratory Rate 20 20 Blood Pressure 164/87 H 167/81 H Pulse Oximetry 90 L 90 L Oxygen Flow Rate 1 1 Fraction of Inspired Oxygen 24 SaO2/FiO2 Ratio 375 Oxygen Delivery Method Nasal Cannula Oxygen Flow Rate 1 Objective Labs 05/15/24 04:58 05/15/24 04:58 Labs: Laboratory Results - last 24 hr 05/15/24 04:58 WBC 6.2 RBC 4.23 Hgb 13.2 Hct 41.4 MCV 97.8 D MCH 31.2 MCHC 31.9 RDW 15.1 H Plt Count 159 Neut % (Auto) 86.8 H Lymph % (Auto) 5.7 L [place] % (Auto) 6.9 Eos % (Auto) 0.1 L Baso % (Auto) 0.5 Neut # (Auto) 5400 Lymph # (Auto) 400 L [place] # (Auto) 400 Eos # (Auto) 0 Baso # (Auto) 0 Sodium 138 Potassium 4.1 Chloride 96 L Carbon Dioxide 38 H BUN 22 H Creatinine 0.58 Estimated GFR > 60 BUN/Creatinine Ratio 37.9 H Glucose 115 H Calcium 8.9 Magnesium 1.9 NT-Pro-B Natriuret Pep [id number] H [facility] Medical History Cellulitis Left hip pain Greater trochanteric bursitis of left hip Myofascial pain Lumbar spondylosis Closed L1 vertebral fracture Cervical spondylosis Chronic neck pain Uncomplicated opioid dependence Chronic renal failure, stage 3a Chronic systolic (congestive) heart failure Glaucoma (~11/2016) Osteoporosis 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) History of duodenal ulcer History of gastrointestinal hemorrhage Essential hypertension Idiopathic scoliosis (07/03/11) Hiatal hernia (07/03/11) Chronic back pain Status post nephrectomy Social History marital status: number of children: 2 household members: none lives independently: Yes caregiver/support person: Yes housing: house pets and animals: Yes education level: college occupational status: other 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 Atrial fibrillation-patient now in sinus rhythm. Continue with amiodarone load orally. As noted before I am not anticoagulating her because of her history of significant GI bleed thought to be secondary to Sergey lesions. Patient is on a proton pump inhibitor at this point, but I feel like the risk outweighs the benefit especially when combined with the risk of falls etcetera given her limited mobility. (Okay for low-dose Lovenox for VTE prophylaxis while in a hospital setting however, lower risk in my opinion) 2. Acute on chronic congestive heart failure-patient continues to show evidence of pulmonary edema. I will cautiously returned her to some diuretic therapy by adding back oral furosemide at a slightly higher dose than her normal baseline dose at home. Her BNP and her chest x-ray are consistent with this as well as her hypoxia. I think will need to go more slowly. 3. Chronic renal failure stage 3 a-patient's creatinine has actually been quite normal. Electrolytes and creatinine normal again this morning. 4. Hypertension-patient's hypotension has resolved as her heart rates been better controlled. Patient restarted on Entresto. Will restart metoprolol at previous dose 50 mg b.i.d. and monitor as her blood pressure was high most of the day yesterday. She was back in sinus rhythm so I am not quite as concerned the beta-joanne effect on top of the amiodarone 5. Hypoxia-this point I have to believe that her hypoxia relates to untreated acute congestive heart failure. As above will place her back on some diuretic therapy, although at a lower dose than the previous parental doses here in the hospital and monitor carefully 6. Disposition-patient clearly is going to need placement in long-term when ready for discharge. Still need to monitor her paroxysmal atrial fibrillation and evaluate her hypoxia more carefully over the next several days. Do not really anticipate she will be medically ready for discharge in less than 48-72 hours Time-Based Coding :: [TOTAL MINUTES] spent with patient and on the chart (including review of chart, obtaining history, exam, reviewing outside data, placing orders, documenting exam and treatment plan, and counseling patient) on [DATE]. PROFEE Charge codes Subsequent inpatient/observation care: [id number]
[2024-05-15] MEDS: FUROSEMIDE 40 MG TABLET PO (08:37)
[2024-05-15] MEDS: FERROUS SULFATE 325 MG TABLET PO (08:37)
[2024-05-15] MEDS: METOPROLOL ER 50 MG TABLET PO (08:37)
[2024-05-15] MEDS: GABAPENTIN 600 MG TABLET PO (08:37)
[2024-05-15] MEDS: ENOXAPARIN 40 MG/0.4 ML SYRINGE SUBCUT (08:38)
[2024-05-15] MEDS: Sacubitril-Valsartan [Entresto] 49-51 mg tablet 1 EACH PO (08:38)
[2024-05-15] MEDS: SODIUM CHLORIDE 0.9% FLUSH 10 ML IV ×2 (12:30→21:26)
--- NOTE | 2024-05-15 12:42 | CM.DPNOTE ---
Addendum entered by KATHLEEN Martínez 05/15/24 14:32: NAILHEAD PUNCHER completed PASRR. SL Original Note: DCP Note NAILHEAD PUNCHER reviewed EMR. NAILHEAD PUNCHER met briefly with dtr and pt in room. introduced self and role. pt preference is to dc home, want to hear it from Dr. Castaneda specifically that he recommends SNF. If SNF, preference [facility]. pt does not want to increase care at [facility] due to cost associated, unsure if she has full insight into needs. Per nursing staff/PT, pt remains incontinent of stool and unaware that she is incontinent. NAILHEAD PUNCHER spoke with Mallory from , happy to review and submit for auth. NAILHEAD PUNCHER faxed clinicals. (f [phone]) PASRR needed P: dc to [facility] pending acceptance/auth vs return to [facility] [place] a few days. CM team will continue to follow closely KATHLEEN Martínez
--- NOTE | 2024-05-15 14:06 | PT-IP ANOTE ---
Checked in on pt several times today and she has either been sleeping or unavailable. Last attempt this afternoon, pt is unable to stay awake to participate with PT.
--- NOTE | 2024-05-15 14:11 | OT.IPNOTE ---
Attempted to see patient x2 today. First attempt at ~1pm but pt had BM and was unaware. Notified nursing for cleaning. Returned ~2pm and pt is lethargic, easily arousable and agreeable but immediately falls back asleep. Will hold at this time.
--- NOTE | 2024-05-15 15:17 | PC.NURSE ---
Patient was incontinent of bowel and bladder earlier. Patient cleaned up and changed. She is using a purewick and denies any discomfort. She is napping now.
--- NOTE | 2024-05-15 15:22 | DIET.CONS ---
Dietary Consultation Note Admission Date: 05/10/2024 21:02 Assessment: 83 y F admitted for acute resp failure and acute on chronic CHF. RD screened for LOS. Pt sleeping, will attempt visit again tomorrow. EMR reviewed. PMH of stage 3 CKD. No significant recent weight loss. 2 recorded po intakes avg <50%. DFM reviewed. Will monitor po intakes. ONS added at dinner to support po intakes. Ht: 165.1 cm Wt: 73.2 kg BMI: 25.7 UBW: 70.304 kg on 11/20/23. 74.843 kg on 03/24/24. Last BM: 05/15/24 (05/15/24 14:33) MNA: 13 Miguel Score: 17 Diet: 05/13/24 Breakfast Heart Healthy Diet Diet Modifications: Sodium Level: 2 gm Sodium Food Texture: Level 7 - Regular Liquid Consistency: Level 0 - Thin Nutrition Percent Meal Consumed 50% 05/14/24 18:00 Percent Meal Consumed 10 05/13/24 18:00 Labs: RBC 4.23 X10^6/uL (4.0-5.2) 05/15/24 04:58 Hgb 13.2 g/dL (12.0-16.0) 05/15/24 04:58 Hct 41.4 % (36-46) 05/15/24 04:58 Creatinine 0.58 mg/dL (0.52-1.04) 05/15/24 04:58 Lactate 1.5 mmol/L (0.7-2.1) 05/10/24 18:12 NT-Pro-B Natriuret Pep 90265 pg/mL (<450) H 05/15/24 04:58 Electronically Signed by: Rosa Montoya 05/15/24 15:22 Clinical Dietitian [address] [id number] [place] [address]
[2024-05-16] VITALS (8 sets, daily range): BP systolic 136–158; BP diastolic 67–83; PULSE 58–68; RESP 16–20; TEMP 36.2–36.4; O2SAT 92–95
[2024-05-16] MEDS: AMIODARONE 200 MG TABLET 400 MG PO ×3 (03:30→20:44)
[2024-05-16] MEDS: PANTOPRAZOLE DR 40 MG TABLET PO (05:35)
[2024-05-16 06:10] LABS: BUN Creatinine Ratio 31.9 (6-22); Blood Urea Nitrogen 22 mg/dL (7-17); Calcium 8.5 mg/dL (8.4-10.2); Chloride 95 mmol/L (98-107); Estimated Glomerular Filt Rate > 60 mL/min (>60); Glucose 110 mg/dL (80-110); HEMOLYSIS < 15 (0-50); Potassium 3.9 mmol/L (3.4-5.1); Sodium 139 mmol/L (137-145)
[2024-05-16 06:30] LABS: Carbon Dioxide 41 mmol/L (22-32)
--- NOTE | 2024-05-16 07:27 | P.PN_ITS ---
Subjective Subjective Date Patient Seen: 05/16/24 Time Patient Seen: 07:27 Interval history: Uneventful day yesterday Was unable to participate with either physical therapy or occupational therapy as she was so somnolent she would fall asleep. Easily arousable but would fall asleep Patient's blood pressure better controlled back on her metoprolol. Heart rate in the 60s Gabapentin also restarted yesterday perhaps that is a source of her somnolence Exam Vital Signs (past 8 hours): - 05/16/24 03:00 Temperature 97.1 F L Pulse Rate 60 Respiratory Rate 20 Blood Pressure 136/72 Pulse Oximetry 95 Oxygen Flow Rate 1 Fraction of Inspired Oxygen 24 SaO2/FiO2 Ratio 383 Oxygen Delivery Method Nasal Cannula Oxygen Flow Rate 1 Objective Labs 05/15/24 04:58 05/16/24 05:03 Labs: Laboratory Results - last 24 hr 05/16/24 05:03 Sodium 139 Potassium 3.9 Chloride 95 L Carbon Dioxide 41 H* BUN 22 H Creatinine 0.69 Estimated GFR > 60 BUN/Creatinine Ratio 31.9 H Glucose 110 Calcium 8.5 Magnesium 2.0 PFSH Medical History Cellulitis Left hip pain Greater trochanteric bursitis of left hip Myofascial pain Lumbar spondylosis Closed L1 vertebral fracture Cervical spondylosis Chronic neck pain Uncomplicated opioid dependence Chronic renal failure, stage 3a Chronic systolic (congestive) heart failure Glaucoma (~11/2016) Osteoporosis 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) History of duodenal ulcer History of gastrointestinal hemorrhage Essential hypertension Idiopathic scoliosis (07/03/11) Hiatal hernia (07/03/11) Chronic back pain Status post nephrectomy Social History marital status: number of children: 2 household members: none lives independently: Yes caregiver/support person: Yes housing: house pets and animals: Yes education level: college occupational status: other 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 Paroxysmal atrial fibrillation-patient has remained in sinus rhythm. Continue amiodarone load orally. As noted previously, I believe the risk of full anticoagulation outweighs the benefit 2. Acute on chronic congestive heart failure-continue with oral furosemide. Better urine output yesterday. Need to get patient up and about 3. Hypertension-patient's numbers better controlled on her usual dose metoprolol. 4. Somnolence-question whether her increased somnolence etcetera are secondary to her medications specifically the gabapentin. I am going to discontinue that today and will follow carefully. Patient also receives hydrocodone and that clearly has a sedating effect on her as well, perhaps that is the combination. 5. Chronic renal failure stage 3-numbers remained stable on current diuretic therapy 6. Disposition-seems almost certain patient will need discharge to senior living. Will discuss with the patient on a daily basis at this point. Opened the possibility that she would not be able to return to [facility] when I saw her yesterday but will discuss that with her today as well Time-Based Coding :: [TOTAL MINUTES] spent with patient and on the chart (including review of chart, obtaining history, exam, reviewing outside data, placing orders, documenting exam and treatment plan, and counseling patient) on [DATE]. JESUS Charge codes Subsequent inpatient/observation care: [id number]
[2024-05-16] MEDS: METOPROLOL ER 50 MG TABLET PO ×2 (09:55→20:44)
[2024-05-16] MEDS: ENOXAPARIN 40 MG/0.4 ML SYRINGE SUBCUT (09:55)
[2024-05-16] MEDS: FUROSEMIDE 40 MG TABLET PO (09:56)
[2024-05-16] MEDS: Sacubitril-Valsartan [Entresto] 49-51 mg tablet 1 EACH PO ×2 (09:56→20:44)
[2024-05-16] MEDS: FERROUS SULFATE 325 MG TABLET PO (09:56)
[2024-05-16] MEDS: SODIUM CHLORIDE 0.9% FLUSH 10 ML IV ×2 (09:56→20:44)
--- NOTE | 2024-05-16 10:15 | PT.IPTN ---
Current Diagnoses Acute on chronic systolic (congestive) heart failure (05/10/24) Physical Therapy Treatment Note M2 PT-IP Current Condition Start: 05/11/24 12:23 Freq: NEEDED Status: Active Protocol: Document 05/11/24 13:50 DCW (Rec: 05/11/24 14:35 DCW [id number]) Physical Therapy Current Condition Current Condition Evaluation Date 05/11/24 Treatment Diagnosis Fatigue, weakness Onset Date 05/10/24 M3 PT-IP Subjective Start: 05/11/24 12:23 Freq: NEEDED Status: Active Protocol: Document 05/16/24 10:15 AB (Rec: 05/16/24 12:24 AB [id number]) Subjective Physical Therapy Visit Type Type Treatment Note Visit Start Time 10:15 Visit Stop Time 10:35 Number of CORPORATE SALES MANAGER Visits 0 Physical Therapy Visit Comments Patient Comments agreeable to do PT M4 PT-IP Mobility and Gait Start: 05/11/24 12:23 Freq: NEEDED Status: Active Protocol: Document 05/16/24 10:15 AB (Rec: 05/16/24 12:24 AB [id number]) PT-Transfer Assessment Sit to and From Stand Sit to and from Stand Maximum Assistance,1 Person Assistance,Use of Upper Extremities Equipment Transfer Assistive Device Gait Belt,Front Wheeled Walker Orthotic/Prosthetic Devices or Brace: No Comments Mobility Comments pt sitting on the chair and agreeable to do PT. O2 sat resting with 2L/min supplemental O2: 95%. pt completed sit to stand from the chair max A and max cues. required 2 attempts to get up. pt ambulated in room using FWW ~ 25 ft min A and cues. pt presents with very slow paced gait and forward trunk flexion. cued for upright posture. cued for deep breakthing. pt ambulated back to her chair. O2 sat checked: 89% but increase to 92% in 2-3 sec. pt needing to be cleaned and brief changed. NAC in room and left pt with NAC to assist. Gait Assessment Gait Gait Assistance Required: Minimum Assistance,1 Person Assist Distance (Feet) 25 Able to Maintain Weight Bearing Status Yes During Gait Assistive Devices Assistive Device Gait Belt,Front Wheeled Walker Orthotic/Prosthetic Devices or Brace: No Gait Deviations General Gait Pattern Decreased Stride Length, Decreased Feet Clearance, Flexed Trunk,Step-to Gait Factors Limiting Gait Function Factors Limiting Gait Function Decreased Activity Tolerance, Decreased Strength,Limited Range of Motion,Poor Balance, Poor Safety Awareness, Respiratory Distress M5 PT-IP Objective Assessments Start: 05/11/24 12:23 Freq: NEEDED Status: Active Protocol: Document 05/11/24 13:50 DCW (Rec: 05/11/24 14:35 DCW [id number]) Orientation Orientation/Cognition Level of Alertness Alert Orientation Name,Birthday,Place,Situation Language Function Ability No Deficits Noted Safety Awareness Understands Safety Issues Memory Description No Deficits Noted Strength Lower Extremity Strength Assessment Bilaterally Impaired Hip 3+ Knee 4- Comments Strength Comments Pt struggled lifting legs against gravity in supine, but after getting up and moving around, was able to demonstrate reasonable functional strength through movement M6 PT-IP Treatment Start: 05/11/24 12:23 Freq: NEEDED Status: Active Protocol: Document 05/16/24 10:15 AB (Rec: 05/16/24 12:24 AB [id number]) Physical Therapy Treatment Education Education Provided Safety M7 PT-IP Assessment and Plan Start: 05/11/24 12:23 Freq: NEEDED Status: Active Protocol: Document 05/16/24 10:15 AB (Rec: 05/16/24 12:24 AB [id number]) PT Summary Assessment and Plan Potential Rehabilitation Potential Fair Summary Impairments Pain,ROM,Strength,Balance, Coordination,Sensation,Tone, Cognition,Bed Mobility, Transfers,Gait,Activity Tolerance Progress Towards Goals Slow Progress due to Medical Issues,Slow Progress due to Activity Tolerance Assessment Summary pt progressing slowly with mobility but continues to need assistance with all tasks. pt requiring max A for sit to stand and min A for ambulation using fWW. pt will need SNF rehab to improve overall strength and mobility. Goals Bed Mobility Goal Independent Transfer Goal Independent,Front Wheeled Walker Gait Goal Independent,Standby Assistance ,Front Wheel Walker Gait Distance 100 feet Other Goals improve transfers and ambulation using 4WW ~ 150 ft mod I Days to Meet Goals 10 Frequency of Treatment Frequency Of Treatment Once a Day Treatment Plan Physical Therapy Treatment Plan Bed Mobility Training,Transfer Training,Gait Training, Therapeutic Exercise,Balance Retraining,Post Op Education, Discharge Planning, Neuromuscular Re-ed Recommendations To Nursing Amount of Assist Needed 1 Person Assist Discharge Recommendations PT Discharge Recommendations SNF Rehab Transportation Needs at Discharge Private Vehicle,Wheelchair/ Cabulance
--- NOTE | 2024-05-16 12:16 | CM.DPNOTE ---
DCP Cont Reviewed chart. Patient discussed with Dr Castaneda. Earliest expected date of discharge is 05/18. Recommended and anticipated dispo is SNF according to Dr Castaneda; which will be discussed with patient throughout her stay. Placed call to [facility] admissions P [phone], spoke with Miranda. Patient has been accepted pending insurance auth. Updated on expected date of discharge. CM team following clinical course closely. SANDIP
[2024-05-16] MEDS: NYSTATIN CREAM 30 GM 1 APPLIC TOP ×2 (14:31→20:44)
[2024-05-16 14:47] LABS: Appearance Urine UA CLEAR; Bilirubin Urine UA NEGATIVE (NEGATIVE); Color Urine UA YELLOW; Glucose Urine UA NEGATIVE (Negative); Ketones Urine UA NEGATIVE (NEGATIVE); Leukocyte Esterase Urine UA 3+ (NEGATIVE); Nitrite Urine UA NEGATIVE (Negative); Occult Blood Urine UA TRACE-INTACT (Negative); Protein Urine UA NEGATIVE (Negative); Urobilinogen Urine UA 0.2 E.U./dL (0.2)
--- NOTE | 2024-05-16 14:48 | OT.IP.TRT ---
Current Diagnoses Acute on chronic systolic (congestive) heart failure (05/10/24) Occupational Therapy Treatment Note M2 OT-IP Current Condition Start: 05/11/24 15:43 Freq: Status: Active Protocol: Document 05/11/24 15:44 [facility] (Rec: 05/11/24 16:05 [facility] [id number]) Occupational Therapy Current Condition Current Condition Evaluation Date 05/11/24 Treatment Diagnosis Acute respiratory failure with hypoxia Diagnosis Onset Date 05/10/24 M3 OT- IP Subjective and Pain Start: 05/11/24 15:43 Freq: Status: Active Protocol: Document 05/16/24 14:48 [facility] (Rec: 05/16/24 14:56 [facility] [id number]) OT- Subjective Occupational Therapy Visit Type Type Treatment Note Visit Start Time 14:39 Visit Stop Time 14:48 Occupational Therapy Visit Comments Patient Comments Pt not wanting to get out of bed but agreed to work on incentive spirometry which was in the room but not opened yet. Cleared with nursing to go over it with the pt. Patient/Caregiver Goals TO get better. OT Pain Assessment Pain When Pain Assessed At Rest Pain Present Pain Present Denied Pain M5 OT- IP IADL's Start: 05/11/24 15:43 Freq: Status: Active Protocol: Document 05/11/24 15:44 [facility] (Rec: 05/11/24 16:05 [facility] [id number]) OT-Instrumental Activities of Daily Living Home Safety Awareness Home Safety Comments TO further assess. Pt states able to call for assistance at her facility if needed. Meal Preparation Meal Preparation Caregiver Provides Assist M6 OT- IP Functional Cognition Start: 05/11/24 15:43 Freq: Status: Active Protocol: Document 05/16/24 14:48 [facility] (Rec: 05/16/24 14:56 [facility] [id number]) Cognitive Factors Limiting Selfcare Function Cognitive Ability Level of Alertness Alert,Drowsy Cognitive Comments Cognitive Assessment Comments Pt able to follow commands for use of spirometry but having difficulty to expand her lungs and only just above 500 at this time. Encourage pt to work on it often. M9 OT- IP Assessment and Plan Start: 05/11/24 15:43 Freq: Status: Active Protocol: Document 05/16/24 14:48 [facility] (Rec: 05/16/24 14:56 [facility] [id number]) OT Summary Assessment and Plan Potential Rehabilitation Potential Good Analytic Complexity at Evaluation Moderate Summary Progress Towards Goals Slow Progress due to Medical Issues,Slow Progress due to Activity Tolerance,Slow Progress due to Cognition Assessment Summary Pt too tired to get up and agreed to be educated on the incentive spriometer. Pt still on O2 and prior did not use O2 at home. At this time recommend pt go to skilled rehab prior to going home. Goals Self-Feeding Goal Independent Grooming Goal Independent Dressing Goal Independent Toileting Goal Independent Bathing Goal Standby Assistance Toilet Transfer Goal Independent Shower Transfer Goal Standby Assistance Days to Meet Goals 20 Frequency of Treatment Other frequency 5x/week Treatment Plan OT Treatment Plan ADL Training,Functional Cognition Training,Functional Mobility,Patient/Family Education,Discharge Planning Discharge Recommendations OT Discharge Recommendations SNF Rehab Transportation Needs at Discharge Wheelchair/Cabulance
[2024-05-16 15:00] LABS: Urine Volume 10mL (spun)
[2024-05-16 15:01] LABS: Bacteria Urine Many (>30); Culture Indicated Urine Specimen Cultured; RBC Urine 0-1/HPF (0-5/HPF); Squamous Epithelial Cell Urine None Seen (0-5/HPF); WBC Urine 10-30/HPF (0-5/HPF)
[2024-05-16] MEDS: cephALEXin 250 MG CAPSULE 500 MG PO ×2 (16:30→20:44)
--- NOTE | 2024-05-16 17:11 | DIET.PN1 ---
Dietary Progress Note Assessment: F/u from [facility]. Attempted to see pt this morning, was working with therapy. PO intake at dinner yesterday was 100%, DFM reviewed. Will continue to monitor intakes. Ht: 165.1 cm Wt: 74 kg BMI: 25.7 Last BM: 05/16/24 (05/16/24 11:47) MNA: 13 Miguel Score: 19 Diet: 05/13/24 Breakfast Heart Healthy Diet Diet Modifications: Sodium Level: 2 gm Sodium Food Texture: Level 7 - Regular Liquid Consistency: Level 0 - Thin Nutrition Percent Meal Consumed 100% 05/15/24 17:24 Percent Meal Consumed 50% 05/14/24 18:00 Labs: RBC 4.23 X10^6/uL (4.0-5.2) 05/15/24 04:58 Hgb 13.2 g/dL (12.0-16.0) 05/15/24 04:58 Hct 41.4 % (36-46) 05/15/24 04:58 Creatinine 0.69 mg/dL (0.52-1.04) 05/16/24 05:03 Lactate 1.5 mmol/L (0.7-2.1) 05/10/24 18:12 NT-Pro-B Natriuret Pep 25347 pg/mL (<450) H 05/15/24 04:58 Electronically Signed by: Rosa Montoya 05/16/24 17:11 Clinical Dietitian [address] [address]
[2024-05-16] MEDS: HYDROCODONE/ACET 5/325 TABLET 1 TAB PO (20:59)
[2024-05-17] VITALS (9 sets, daily range): BP systolic 126–156; BP diastolic 66–82; PULSE 47–68; RESP 14–18; TEMP 36.1–37.1; O2SAT 92–96
[2024-05-17] MEDS: AMIODARONE 200 MG TABLET 400 MG PO ×3 (03:46→16:49)
[2024-05-17] MEDS: PANTOPRAZOLE DR 40 MG TABLET PO (05:08)
--- NOTE | 2024-05-17 06:46 | PM.PN.1 ---
Subjective Subjective Date Patient Seen: 05/17/24 Time Patient Seen: 06:46 Interval history: Patient with pretty much uneventful day yesterday. Up with physical and occupational therapy. Improved but both recommending care home placement Nursing staff discovered some irritation of her perineum. Urinalysis was performed as part of that evaluation. She was put on some nystatin as well. Urinalysis was positive and she was currently growing Gram-negative bacilli from her urine. Was started on antibiotics with a positive UA yesterday. Oxygen requirement seems to be diminishing. She minimally desats with activity and rapidly returned to normal but still requires a small degree of oxygen replacement therapy Patient herself has no new complaints or issues in fact thinks she should probably go to care home rather than go home before returning home as she feels like she is physically unable to care for herself at this time Exam Vital Signs (past 8 hours): - 05/17/24 00:00 05/17/24 04:00 Temperature 97.3 F L 96.9 F L Pulse Rate 63 55 L Respiratory Rate 14 16 Blood Pressure 156/77 H 126/68 Pulse Oximetry 94 94 Fraction of Inspired Oxygen 24 SaO2/FiO2 Ratio 391 Oxygen Delivery Method Nasal Cannula Oxygen Flow Rate 1 Objective Labs 05/15/24 04:58 05/16/24 05:03 Labs: Laboratory Results - last 24 hr 05/16/24 14:15 Urine Color Yellow Urine Appearance Clear Urine pH 6.0 Ur Specific [place] 1.010 Urine Protein Negative Urine Glucose (UA) Negative Urine Ketones Negative Urine Occult Blood Trace-intact Urine Nitrate Negative Urine Bilirubin Negative Urine Urobilinogen 0.2 Ur Leukocyte Esterase 3+ H Urine RBC 0-1/hpf Urine WBC 10-30/hpf H Ur Squamous Epith Cells None seen Urine Bacteria Many (>30) H Ur Culture Indicated? 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) History of duodenal ulcer History of gastrointestinal hemorrhage Essential hypertension Idiopathic scoliosis (07/03/11) Hiatal hernia (07/03/11) Chronic back pain Status post nephrectomy Social History marital status: number of children: 2 household members: none lives independently: Yes caregiver/support person: Yes housing: house pets and animals: Yes education level: college occupational status: other Previous occupational history: [employer] kerry/judaism: Yazidi travel history: other leisure activities: reading and other Smoking Status: Former smoker Tobacco: How many years used: 8 Smokeless tobacco user: other quit status: quit date established second hand exposure: No alcohol intake: current substance use type: does not use Assessment & Plan Assessment & Plan narrative: 1. Paroxysmal atrial fibrillation-patient has remained in sinus rhythm. Continue amiodarone load orally. She should be ready for a maintenance dose amiodarone on Wednesday, complete her load tomorrow. As noted previously, I believe the risk of full anticoagulation outweighs the benefit 2. Acute on chronic congestive heart failure-continue with oral furosemide. Better urine output yesterday. Need to get patient up and about. Improving hypoxia seemingly improving her congestive heart failure as well 3. Hypertension-patient's numbers better controlled on her usual dose metoprolol. Minimally bradycardic as well, not unexpected. 4. Somnolence-question whether her increased somnolence etcetera are secondary to her medications specifically the gabapentin. Seem better yesterday with that the gabapentin on board. Going to leave that off of her list for now. She might tolerate at nighttime only dose but I am going to wait for her to need additional pain control 5. Chronic renal failure stage 3-numbers remained stable on current diuretic therapy 6. UTI-patient's most recent UTI was with a pansensitive E coli. Will continue to wait for sensitivities but is currently on an oral first generation cephalosporin given her current meds and interactions and prior history, I think that is the best choice 7. Disposition-plan for discharge to care home. Patient should be medically ready for discharge as early as tomorrow, May 18, 2024. Time-Based Coding :: [TOTAL MINUTES] spent with patient and on the chart (including review of chart, obtaining history, exam, reviewing outside data, placing orders, documenting exam and treatment plan, and counseling patient) on [DATE]. PROFEE Charge codes Subsequent inpatient/observation care: [id number]
[2024-05-17] MEDS: Sacubitril-Valsartan [Entresto] 49-51 mg tablet 1 EACH PO ×2 (09:05→22:17)
[2024-05-17] MEDS: FUROSEMIDE 40 MG TABLET PO (09:06)
[2024-05-17] MEDS: FERROUS SULFATE 325 MG TABLET PO (09:06)
[2024-05-17] MEDS: cephALEXin 250 MG CAPSULE 500 MG PO ×4 (09:06→22:17)
[2024-05-17] MEDS: METOPROLOL ER 50 MG TABLET PO ×2 (09:06→22:17)
[2024-05-17] MEDS: ENOXAPARIN 40 MG/0.4 ML SYRINGE SUBCUT (09:06)
[2024-05-17] MEDS: SODIUM CHLORIDE 0.9% FLUSH 10 ML IV ×2 (09:07→22:19)
[2024-05-17] MEDS: NYSTATIN CREAM 30 GM 1 APPLIC TOP ×2 (09:07→22:17)
--- NOTE | 2024-05-17 11:00 | PT.IPTN ---
Current Diagnoses Acute on chronic systolic (congestive) heart failure (05/10/24) Physical Therapy Treatment Note M2 PT-IP Current Condition Start: 05/11/24 12:23 Freq: NEEDED Status: Active Protocol: Document 05/11/24 13:50 DCW (Rec: 05/11/24 14:35 DCW [id number]) Physical Therapy Current Condition Current Condition Evaluation Date 05/11/24 Treatment Diagnosis Fatigue, weakness Onset Date 05/10/24 M3 PT-IP Subjective Start: 05/11/24 12:23 Freq: NEEDED Status: Active Protocol: Document 05/17/24 11:25 TS (Rec: 05/17/24 11:31 TS [id number]) Subjective Physical Therapy Visit Type Type Treatment Note Visit Start Time 11:00 Visit Stop Time 11:23 Number of PRINT COLOR OPERATOR Visits 1 Physical Therapy Visit Comments Patient Comments Pt found resting in the chair, she is agreeable to PT. M4 PT-IP Mobility and Gait Start: 05/11/24 12:23 Freq: NEEDED Status: Active Protocol: Document 05/17/24 11:25 TS (Rec: 05/17/24 11:31 TS [id number]) PT-Bed Mobility Assessment Sit to Supine Sit to Supine Moderate Assistance PT-Transfer Assessment Sit to and From Stand Sit to and from Stand Maximum Assistance,1 Person Assistance,Use of Upper Extremities Equipment Transfer Assistive Device Gait Belt,Front Wheeled Walker Comments Mobility Comments Spo2 96% on 2L's. STS MAxA from chair with FWW> She ambualtes ~20' in the room with slow step to gait and use of FWW, pt has flexed posture . Sit to supine into bed ModA. Nursing in the room, all needs met. Gait Assessment Gait Gait Assistance Required: Minimum Assistance,1 Person Assist Distance (Feet) 20 Assistive Devices Assistive Device Gait Belt,Front Wheeled Walker Orthotic/Prosthetic Devices or Brace: No Gait Deviations General Gait Pattern Decreased Stride Length, Decreased Feet Clearance, Flexed Trunk,Step-to Gait Factors Limiting Gait Function Factors Limiting Gait Function Decreased Activity Tolerance, Decreased Strength,Limited Range of Motion,Poor Balance, Poor Safety Awareness, Respiratory Distress PT-Balance Assessment Sitting Balance and Reactions Static Sitting Balance Ability Fair Dynamic Sitting Balance Ability Fair Standing Balance and Reactions Static Standing Balance Ability Fair Dynamic Standing Balance Ability Fair Device Used FWW M5 PT-IP Objective Assessments Start: 05/11/24 12:23 Freq: NEEDED Status: Active Protocol: Document 05/11/24 13:50 DCW (Rec: 05/11/24 14:35 DCW [id number]) Orientation Orientation/Cognition Level of Alertness Alert Orientation Name,Birthday,Place,Situation Language Function Ability No Deficits Noted Safety Awareness Understands Safety Issues Memory Description No Deficits Noted Strength Lower Extremity Strength Assessment Bilaterally Impaired Hip 3+ Knee 4- Comments Strength Comments Pt struggled lifting legs against gravity in supine, but after getting up and moving around, was able to demonstrate reasonable functional strength through movement M6 PT-IP Treatment Start: 05/11/24 12:23 Freq: NEEDED Status: Active Protocol: Document 05/17/24 11:25 TS (Rec: 05/17/24 11:31 TS [id number]) Physical Therapy Treatment Education Education Provided Safety M7 PT-IP Assessment and Plan Start: 05/11/24 12:23 Freq: NEEDED Status: Active Protocol: Document 05/17/24 11:25 TS (Rec: 05/17/24 11:31 TS [id number]) PT Summary Assessment and Plan Potential Rehabilitation Potential Fair Summary Impairments Pain,ROM,Strength,Balance, Coordination,Sensation,Tone, Cognition,Bed Mobility, Transfers,Gait,Activity Tolerance Progress Towards Goals Slow Progress due to Medical Issues,Slow Progress due to Activity Tolerance Assessment Summary Fadumo continues to make slow progress with her mobility. She is MaxA for STS with FWW. She ambulates short distances in the room with a slow pacing gait. PT continues to recommend SNF. Goals Bed Mobility Goal Independent Transfer Goal Independent,Front Wheeled Walker Gait Goal Independent,Standby Assistance ,Front Wheel Walker Gait Distance 100 feet Other Goals improve transfers and ambulation using 4WW ~ 150 ft mod I Days to Meet Goals 10 Frequency of Treatment Frequency Of Treatment Once a Day Treatment Plan Physical Therapy Treatment Plan Bed Mobility Training,Transfer Training,Gait Training, Therapeutic Exercise,Balance Retraining,Post Op Education, Discharge Planning, Neuromuscular Re-ed Recommendations To Nursing Amount of Assist Needed 1 Person Assist Discharge Recommendations PT Discharge Recommendations SNF Rehab Transportation Needs at Discharge Private Vehicle,Wheelchair/ Cabulance
--- NOTE | 2024-05-17 12:36 | CM.DPNOTE ---
DCP Note PLEATER reviewed EMR. Per Leonel, likely stable for dc to SNF tomorrow, 05/18. PLEATER spoke with admissions from , auth in place, able to accept tomorrow, no time restraints. unsure if they have transport available. PLEATER spoke with dtr Phi, ([phone]) able to transport, will pick her up tomorrow 10am. PLEATER answered questions to best of ability. PLEATER met with pt in room. Confirm agreement with plan. Deny questions at this time. P: dc tomorrow to [facility] pending medically stable, transport 10am with dtr. PASRR completed. CM team will continue to follow closely KATHLEEN Martínez
--- NOTE | 2024-05-17 14:45 | OT.IP.TRT ---
Current Diagnoses Acute on chronic systolic (congestive) heart failure (05/10/24) Occupational Therapy Treatment Note M2 OT-IP Current Condition Start: 05/11/24 15:43 Freq: Status: Active Protocol: Document 05/11/24 15:44 [facility] (Rec: 05/11/24 16:05 [facility] [id number]) Occupational Therapy Current Condition Current Condition Evaluation Date 05/11/24 Treatment Diagnosis Acute respiratory failure with hypoxia Diagnosis Onset Date 05/10/24 M3 OT- IP Subjective and Pain Start: 05/11/24 15:43 Freq: Status: Active Protocol: Document 05/17/24 14:49 [facility] (Rec: 05/17/24 14:54 [facility] [id number]) OT- Subjective Occupational Therapy Visit Type Type Treatment Note Visit Start Time 14:25 Visit Stop Time 14:45 Occupational Therapy Visit Comments Patient Comments Pt agreed to get up to brush her teeth. Patient/Caregiver Goals To get better. OT Pain Assessment Pain When Pain Assessed At Rest Pain Present Pain Present Denied Pain M4 OT- IP ADL's Start: 05/11/24 15:43 Freq: Status: Active Protocol: Document 05/17/24 14:49 [facility] (Rec: 05/17/24 14:54 [facility] [id number]) OT ADL-Grooming General Evaluation Grooming Ability Standby Assistance Areas Needing Assistance Retrieving/Set-up of Grooming Items Comments OT Grooming Comments While standing at the sink with the FWW. OT ADL-Oral Care General Eval Oral Care Ability Independent OT ADL-Dressing General Eval Lower Body Dressing Ability Maximum Assistance Areas Needing Assistance Socks OT ADL-Toileting Comments OT Toileting Comments Per nursing staff, having to assist pt with brief changes. OT ADL-Bathing Comments OT Bathing Comments Not performed. M5 OT- IP IADL's Start: 05/11/24 15:43 Freq: Status: Active Protocol: Document 05/11/24 15:44 [facility] (Rec: 05/11/24 16:05 [facility] [id number]) OT-Instrumental Activities of Daily Living Home Safety Awareness Home Safety Comments TO further assess. Pt states able to call for assistance at her facility if needed. Meal Preparation Meal Preparation Caregiver Provides Assist M6 OT- IP Functional Cognition Start: 05/11/24 15:43 Freq: Status: Active Protocol: Document 05/16/24 14:48 [facility] (Rec: 05/16/24 14:56 [facility] [id number]) Cognitive Factors Limiting Selfcare Function Cognitive Ability Level of Alertness Alert,Drowsy Cognitive Comments Cognitive Assessment Comments Pt able to follow commands for use of spirometry but having difficulty to expand her lungs and only just above 500 at this time. Encourage pt to work on it often. M7 OT- IP Mobility and Balance Start: 05/11/24 15:43 Freq: Status: Active Protocol: Document 05/17/24 14:49 [facility] (Rec: 05/17/24 14:54 [facility] [id number]) OT- Bed Mobility Assessment Sit to Supine Sit to Supine Assist Moderate Assistance OT-Transfer Assessment Sit to and From Stand Sit to and from Stand Minimal Assistance Transfers Transfer Ability Minimal Assistance Technique Transfer Destination Bed Transfer Technique Stand Step Pivot Devices Transfer Assistive Devices Gait Belt,Front Wheeled Walker Comments Mobility Comments SCOTTIE to stand and SCOTTIE with FWW to walk to and from the sink with increased time and assist to help manage the O2 tubing. Pt on 2L of O2 and at 96% and dropped to 90% after getting back to bed and after several minutes at 92%. Pt states she feels that she is 30% of her baseline for mobility needs now. OT- Balance Assessment Sitting Balance and Reactions Static Sitting Balance Ability Good Dynamic Sitting Balance Ability Fair Standing Balance and Reactions Static Standing Balance Ability Fair Dynamic Standing Balance Ability Fair M8 OT- IP Objective Assessments Start: 05/11/24 15:43 Freq: Status: Active Protocol: Document 05/11/24 15:44 [facility] (Rec: 05/11/24 16:05 [facility] [id number]) OT Gross Range of Motion Upper Extremity Range of Motion ROM Impairments grossly WFL OT Strength Upper Extremity Strength Assessment Within Functional Limits Comments Strength Comments WFL for needs at least 4-/5 OT- Coordination Assessment Upper Extremity Finger to Nose Test Within Functional Limits M9 OT- IP Assessment and Plan Start: 05/11/24 15:43 Freq: Status: Active Protocol: Document 05/17/24 14:49 [facility] (Rec: 05/17/24 14:54 [facility] [id number]) OT Summary Assessment and Plan Potential Rehabilitation Potential Good Analytic Complexity at Evaluation Moderate Summary Progress Towards Goals Slow Progress due to Medical Issues,Slow Progress due to Activity Tolerance Assessment Summary Pt able to participate in standing ADL's of grooming and oral care needs. Pt to go to skilled rehab when medically stable. Goals Self-Feeding Goal Independent Grooming Goal Independent Dressing Goal Independent Toileting Goal Independent Bathing Goal Standby Assistance Toilet Transfer Goal Independent Shower Transfer Goal Standby Assistance Days to Meet Goals 20 Frequency of Treatment Other frequency 5x/week Treatment Plan OT Treatment Plan ADL Training,Functional Cognition Training,Functional Mobility,Patient/Family Education,Discharge Planning Discharge Recommendations OT Discharge Recommendations SNF Rehab Transportation Needs at Discharge Wheelchair/Cabulance
[2024-05-17] MEDS: HYDROCODONE/ACET 5/325 TABLET 1 TAB PO (22:19)
[2024-05-18 04:00] VITALS: BP 130/67; PULSE 60; RESP 18; TEMP 36.1; O2SAT 94
[2024-05-18] MEDS: PANTOPRAZOLE DR 40 MG TABLET PO (05:29)
[2024-05-18 06:30] LABS: BUN Creatinine Ratio 38.8 (6-22); Blood Urea Nitrogen 26 mg/dL (7-17); Calcium 8.8 mg/dL (8.4-10.2); Chloride 93 mmol/L (98-107); Estimated Glomerular Filt Rate > 60 mL/min (>60); Glucose 101 mg/dL (80-110); HEMOLYSIS < 15 (0-50); Potassium 3.6 mmol/L (3.4-5.1); Sodium 136 mmol/L (137-145)
[2024-05-18 06:54] LABS: Carbon Dioxide 41 mmol/L (22-32)
--- NOTE | 2024-05-18 07:43 | PM.DS.1 ---
History of Present Illness History of Present Illness Date Patient Seen: 05/18/24 Time Patient Seen: 07:43 Chief complaint: feverish, nausea Narrative: 83 year old female well known to me with significant cardiac history including significant cardiomyopathy with history of chronic congestive heart failure admitted via emergency department with acute on chronic congestive heart failure. Unclear whether or not patient actually has been taking her usual Lasix for several days prior to admission. Patient presented with symptoms of subjective fever with cough increased weakness maybe some shortness of breath. ER evaluation was remarkable for congestive heart failure on chest x-ray a BNP quite elevated over her baseline normal white blood cell count and renal function She was hypoxic as well upon presentation. She was given some IV furosemide with good urinary output, and maybe some minor improvement in her oxygenation. She was admitted for further diuresis Patient was significant cardiac history with a prior history of significant cardiomyopathy (question takotsubo cardiomyopathy) with left ventricular ejection fraction as low as 20% in 2019. This improved with medical therapy but most recently has an ejection fraction of about 45-50% with grade 2 diastolic dysfunction as well as some moderate tricuspid regurgitation and rshl-cr-ladswttn mitral regurgitation This morning, patient really has no complaints. She was a difficult time really expressing to me what her presenting complaints were although does admit to some generalized weakness. It was unclear based on talking to her whether not she has been taking her medications. She just seems a bit disoriented. Of note she has been awake most of the night since she came to the ER late and her evaluation was through the middle of the night and I am seeing her at 8 in the morning Discharge Providers Provider Date of admission: 05/10/24 21:02 Discharge Date: 05/18/24 Primary care physician: Charles Castaneda MD Consults: 05/11/24 12:00 Consult to Occupational Therapy Evaluate & Treat Comment: Physician Instructions: Evaluate and treat Consult to Physical Therapy Evaluate & Treat Comment: Physician Instructions: Evaluate and Treat Discharge provider: Charles Castaneda MD Summary Hospital Course Discharge Diagnosis: 1. Acute on chronic congestive heart failure with reduced left ventricular ejection fraction 2. Paroxysmal atrial fibrillation 3. Acute hypoxic respiratory failure secondary to congestive heart failure 4. UTI with E coli sensitive to most antibiotics 5. Chronic neck and back pain 6. Uncomplicated opioid dependence 7. Chronic renal failure stage 3 a 8. Osteoporosis 9. Essential hypertension 10. Idiopathic scoliosis Hospital Course: Patient was admitted as above. [place] to have respiratory failure and I hypoxia secondary to congestive heart failure based on findings. She was aggressive diuresis with parental furosemide. With this her respiratory status did seem to improve and then on the evening of the 12 of May she went into atrial fibrillation with rapid ventricular response. Hemodynamically she did not tolerate this well at all she became quite hypotensive. With the appropriate interventions medications her heart rates was slowed and her blood pressure improved significantly. She also had improvement in blood pressure with some IV fluids. She was loaded orally with amiodarone which over the course of the next 24 hours resulted in her returning to a sinus rhythm with much better blood pressures etcetera. At this point diuresis was re-initiated (had been suspended during her event) but with the oral furosemide at a slightly higher dose than her baseline. She tolerated this well with no evidence of electrolyte disturbances or impact on her renal function. She had continued hypoxia requiring oxygen at 0-2 liters/minute, somewhat more with activity. It was felt as though she would likely be able to wean down and eliminate the oxygen once her acute congestive heart failure he was adequately treated. She continued on her Entresto and metoprolol as well as the addition of amiodarone for her atrial fibrillation as far as cardiac meds Patient was also felt to be somewhat somnolent and difficult to arouse at times. In the end it was felt as though this was secondary to a combination of her gabapentin and her hydrocodone. Gabapentin was discontinued and she did far better without this. This has been initiated in effort to help control her chronic pain syndrome and minimize her use of opiate narcotics but obviously seems to have a significant side effect at this time. Perhaps reintroducing this at a lower dose or nighttime only dosing might be appropriate for the future Patient was also evaluated and found to have a UTI which subsequently grew E coli that was sensitive to all tested antibiotics except for trimethoprim sulfamethoxazole. She was started on first generation cephalosporin given her allergies and other medications to avoid conflicts. She was minimally symptomatic in seem to improve. She will need another several days of antibiotic therapy with last day to be the 22 of May Patient's blood pressure initially quite hypotensive with her atrial fibrillation and after her usual medications were held rebounded and she became somewhat hypertensive. She was restarted on her usual dose medications and with this her blood pressure was much improved. Heart rate was minimally bradycardic as expected with the amiodarone plus the metoprolol. Patient remained asymptomatic Patient's chronic pain was adequately controlled with the hydrocodone. She was able to participate with physical therapy and was slowly improving back towards her baseline at time of discharge Of note patient was not anticoagulated despite her atrial fibrillation over concerns about risks of anticoagulation given her age her limited mobility and a history of Sergey lesions causing repetitive upper GI bleeding in the past. Status at Discharge Cognitive/behavioral status at discharge: at baseline, oriented Functional status at discharge: uses cane/walker Overall status at discharge: patient is progressing back to baseline Time Spent with Patient Time spent: Greater than 30 minutes Exam Vital Signs (past 8 hours): - 05/17/24 23:53 05/18/24 04:00 Temperature 98.8 F 97.0 F L Pulse Rate 68 60 Respiratory Rate 18 18 Blood Pressure 133/82 130/67 Pulse Oximetry 96 94 Oxygen Flow Rate 1 1 Fraction of Inspired Oxygen 28 SaO2/FiO2 Ratio 335 Oxygen Delivery Method Nasal Cannula Oxygen Flow Rate 1 Objective Labs 05/15/24 04:58 05/18/24 05:25 Labs: Laboratory Results - last 24 hr 05/18/24 05:25 Sodium 136 L Potassium 3.6 Chloride 93 L Carbon Dioxide 41 H* BUN 26 H Creatinine 0.67 Estimated GFR > 60 BUN/Creatinine Ratio 38.8 H Glucose 101 Calcium 8.8 PFSH Medical History Cellulitis Left hip pain Greater trochanteric bursitis of left hip Myofascial pain Lumbar spondylosis Closed L1 vertebral fracture Cervical spondylosis Chronic neck pain Uncomplicated opioid dependence Chronic renal failure, stage 3a Chronic systolic (congestive) heart failure Glaucoma (~11/2016) Osteoporosis 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) History of duodenal ulcer History of gastrointestinal hemorrhage Essential hypertension Idiopathic scoliosis (07/03/11) Hiatal hernia (07/03/11) Chronic back pain Status post nephrectomy Social History marital status: number of children: 2 household members: none lives independently: Yes caregiver/support person: Yes housing: house pets and animals: Yes education level: college occupational status: other 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 Hopefully she will have continued treatment of her hypoxic respiratory failure by treating her congestive heart failure and be able to come off of her oxygen. Hopefully she will regain strength rather quickly be able to return to her prior living environment which is assisted living at [facility] Discharge Plan Discharge Plan Patient Disposition: SNF Transfer to: [facility] Consult as needed: Dental, Hearing, Mental health, Podiatry and Vision Discharge orders & Medications Prescriptions: New amiodarone 200 mg tablet 200 mg PO DAILY Qty: 90 0RF Rx Instructions: 400mg daily for 5 days, then 200mg daily after that cephalexin 500 mg capsule 500 mg PO QID 6 Days Qty: 24 0RF Rx Instructions: last dose on 05/22/2024 furosemide 40 mg tablet 40 mg PO DAILY Qty: 90 0RF Continued vitamin E 400 unit Capsule 400 unit PO DAILY Qty: 0 omeprazole 40 mg capsule,delayed release(DR/EC) 40 mg PO QDAY Qty: 90 3RF metoprolol succinate 50 mg tablet extended release 24 hr 50 mg PO BID Qty: 180 0RF Entresto 49-51 mg tablet 1 tab PO BID ferrous sulfate [Iron (ferrous sulfate)] 325 mg (65 mg iron) tablet 325 mg PO DAILY nystatin 100,000 unit/gram powder 1 applic topical TID Qty: 60 3RF hydrocodone-acetaminophen 5-325 mg tablet 1 tab PO Q4H MDD 3 tabs PRN (Reason: pain) Qty: 30 0RF Discontinued furosemide 20 mg tablet 20 mg PO DAILY Qty: 180 1RF gabapentin [Neurontin] 600 mg tablet 600 mg PO TID Qty: 270 3RF No Action (DME) Disabled Parking Permit Qty: 1 0RF Rx Instructions: Patient qualifies for disabled parking as per the attached form. Follow up/Referrals: Charles Castaneda MD [Primary Care Provider] - Discharge Health Status Multidrug resistant organism: No MDRO Precautions: [place] Diet/Activity/Treatments Diet: Diet as Tolerated and Low-sodium Liquid consistency: Normal/Thin Food texture: Regular Oxygen: 1-2 l/min MI continuous [facility] Reason for rehabilitation: Recovery r/t decondition Rehab type: Physical therapy and Occupational therapy Visit Report/Discharge Packet Stand Alone Forms: Patient Portal/API Discharge Data Primary Care Provider: Charles Castaneda Charge Codes Discharge inpatient/observation: [id number]
[2024-05-18 08:00] VITALS: BP 134/62; PULSE 58; RESP 16; TEMP 36.3; O2SAT 87
[2024-05-18] MEDS: ENOXAPARIN 40 MG/0.4 ML SYRINGE SUBCUT (09:00)
[2024-05-18] MEDS: AMIODARONE 200 MG TABLET 400 MG PO (09:00)
[2024-05-18] MEDS: FUROSEMIDE 40 MG TABLET PO (09:00)
[2024-05-18] MEDS: cephALEXin 250 MG CAPSULE 500 MG PO (09:00)
[2024-05-18] MEDS: FERROUS SULFATE 325 MG TABLET PO (09:00)
[2024-05-18] MEDS: Sacubitril-Valsartan [Entresto] 49-51 mg tablet 1 EACH PO (09:00)
[2024-05-18 09:01] VITALS: BP 134/62; PULSE 58
[2024-05-18] MEDS: METOPROLOL ER 50 MG TABLET PO (09:01)
[2024-05-18 10:51] VITALS: O2SAT 95
--- NOTE | 2024-05-18 11:00 | PC.NURSE ---
Day shift: Discharge packet given to patient's daughter. Patient's daughter stated understanding about giving entire packet to [facility] upon arrival. RT at bedside and gave patient's daughter O2 tank so daughter able to transport patient to SNF. Plan is for patient's daughter to return O2 tank tomorrow. PIV and tele removed prior to discharge. Entresto, patient's home medication, returned to patient's daughter. Called [facility] and spoke to Soni to give report. Confirmed with [facility] that O2 would be available for patient upon arrival. PCT Larry escorted patient to exit via wheelchair.
--- NOTE | 2024-05-18 12:39 | CM.DPNOTE ---
DC Note Patient has been discharged to [facility]; Mallory at [facility] assisting with this coordination. According to chart review, daughter is scheduled to transport patient to [facility]. According to Dr Castaneda and HAILEE Jones, patient needs 1-2L continuous O2 for transport. Discussed in multidisciplinary rounds and received approval from Odalis Blankenship, Director to release a tank via RT, family will need to return. Placed call to RT who delivered the tank and spoke with patient's daughter. Mallory at [facility] updated. Patient left with daughter at approx 1045. HAILEE jones updated with nurse report. DC ppk and PASRR emailed to Mallory. Plan: Discharge to [facility] via private auto, O2 tank from will be returned by daughter. SANDIP
== END 2024-05-18 10:40 | DRG 291 ==
LOC: ED 20:54 → AC 21:03
PROVIDERS: Student in an Organized Health Care Education/Training Program; Admitting Provider Family Medicine; Emergency Provider Emergency Medicine; PCP Internal Medicine; Referring Provider Emergency Medicine; Visit Provider Internal Medicine
DX: I13.0 Hypertensive heart and chronic kidney disease with heart failure and stage 1 through stage 4 chronic kidney disease, or unspecified chronic kidney disease (principal); I50.23 Acute on chronic systolic (congestive) heart failure; J96.01 Acute respiratory failure with hypoxia; N39.0 Urinary tract infection, site not specified; F11.20 Opioid dependence, uncomplicated; N18.31 Chronic kidney disease, stage 3a; G89.29 Other chronic pain; I95.9 Hypotension, unspecified; R00.0 Tachycardia, unspecified; I48.91 Unspecified atrial fibrillation; I42.9 Cardiomyopathy, unspecified; I07.1 Rheumatic tricuspid insufficiency; I48.0 Paroxysmal atrial fibrillation; R40.0 Somnolence; I34.0 Nonrheumatic mitral (valve) insufficiency; B96.20 Unspecified Escherichia coli [E. coli] as the cause of diseases classified elsewhere; M54.9 Dorsalgia, unspecified; M54.2 Cervicalgia; M81.0 Age-related osteoporosis without current pathological fracture; M41.20 Other idiopathic scoliosis, site unspecified; Z87.19 Personal history of other diseases of the digestive system; Z87.891 Personal history of nicotine dependence
CPT/HCPCS: 0241U; 36415; 36600; 71045; 80048; 80053; 81001; 82805; 83605; 83735; 83880; 84443; 84484; 85025; 85610; 87077; 87086; 87186; 93005; 93306; 94762; 96365; 97110; 97116; 97129; 97161; 97166; 97530; 97535; 99223; 99233; 99239; 99284; 99285; 99291; J1160; J1650; J1940

== ENCOUNTER → 2025-01-01 10:21 | Outpatient (CLI) | payer MEDICARE, SELFPAY ==
[2024-05-10 22:51] VITALS: BMI 25.7
[2025-01-01 11:25] LABS: Alanine Aminotransferase 79 IU/L (<35); Albumin 3.5 g/dL (3.5-5.0); Albumin Globulin Ratio 1.3 (1.0-2.8); Alkaline Phosphatase 90 U/L (38-126); Aspartate Aminotransferase 46 IU/L (14-36); Bilirubin Total 0.4 mg/dL (0.2-1.3); Blood Urea Nitrogen 27 mg/dL (7-17); Calcium 9.1 mg/dL (8.4-10.2); Carbon Dioxide 27 mmol/L (22-32); Chloride 113 mmol/L (98-107); Estimated Glomerular Filt Rate 50 mL/min (>60); Globulin 2.6 g/dL (1.7-4.1); Glucose 98 mg/dL (70-99); HEMOLYSIS 20 (0-50); Potassium 4.5 mmol/L (3.4-5.1); Sodium 146 mmol/L (137-145); Total Protein 6.1 g/dL (6.3-8.2)
== END ==
PROVIDERS: PCP Internal Medicine; Referring Provider Internal Medicine; Visit Provider Internal Medicine
DX: M81.0 Age-related osteoporosis without current pathological fracture (principal); Z79.899 Other long term (current) drug therapy
CPT/HCPCS: 36415; 80053

== ENCOUNTER 2025-01-08 13:19 | Inpatient (IN) | payer MEDICARE, SELFPAY ==
[2024-05-10 22:51] VITALS: BMI 25.7
[2025-01-08] VITALS (15 sets, daily range): BP systolic 110–186; BP diastolic 57–89; PULSE 62–70; RESP 17–24; TEMP 36.4–37.1; O2SAT 93–100; BMI 22.8; BMI 28.4
--- NOTE | 2025-01-08 18:08 | DI.US.S_ITS ---
PROCEDURE: US PERIPH VENOUS LOW EXTREM BI INDICATIONS: lower leg swelling TECHNIQUE: Real-time imaging, as well as color and pulse Doppler interrogation, were performed of the deep veins of both legs from the inguinal ligament to the popliteal fossa, with documentation of the visualized calf veins. COMPARISON: None. FINDINGS: Right: The common femoral, femoral, popliteal, and the visualized calf veins are normally compressible, and free of intraluminal thrombus. Color and pulse Doppler demonstrate normal phasic intravascular flow. There is normal augmentation response to distal compression maneuver. Left: The common femoral, femoral, popliteal, and the visualized calf veins are normally compressible, and free of intraluminal thrombus. Color and pulse Doppler demonstrate normal phasic intravascular flow. There is normal augmentation response to distal compression maneuver. Pulsatile venous flow in both lower extremities can be seen in the setting of heart failure or tricuspid regurgitation. IMPRESSION: No findings of deep venous thrombosis in either lower extremity. Approved by: Niranjan Monae M.D. on 01/08/2025 at 19:58
--- NOTE | 2025-01-08 18:22 | ED.EXTPRO ---
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 Today complaining of joint pain especially the knees. She is on chronic hydrocodone has not yet taken any pain medication for her pain today. She comes in complaining that her lower extremities are more swollen than usual and her knees are particularly painful. Typically she is able to use a walker to get around. Her last dose of hydrocodone was at 5:00 a.m.. No fevers, chills, chest pain, abdominal pain Related Data Home Medications ?Medication ?Instructions ?Recorded ?Confirmed vitamin E 268 mg (400 unit) capsule 400 unit PO DAILY ##0 07/08/11 11/27/24 ferrous sulfate 325 mg (65 mg 325 mg PO DAILY 10/13/18 11/27/24 iron) tablet (Iron (ferrous sulfate)) sacubitril 49 mg-valsartan 51 mg 1 tab PO BID 01/04/24 11/27/24 tablet (Entresto) Previous Rx's ?Medication ?Instructions ?Recorded Disabled Parking Permit #1 ea 01/04/24 metoprolol succinate 50 mg 50 mg PO BID #180 tabs 06/05/24 tablet,extended release 24 hr amiodarone 200 mg tablet 200 mg PO DAILY #90 tabs 06/15/24 omeprazole 40 mg capsule,delayed 40 mg PO QDAY #90 caps 09/12/24 release furosemide 40 mg tablet 40 mg PO DAILY #90 tabs 09/25/24 hydrocodone 5 mg-acetaminophen 325 1 tab PO Q4H PRN pain #90 tabs 05/25 mg tablet hydrocodone 5 mg-acetaminophen 325 1 tab PO Q4H PRN pain #90 tabs 05/25 mg tablet hydrocodone 5 mg-acetaminophen 325 1 tab PO Q4H PRN pain #90 tabs 0505/25 mg tablet Allergies Allergy/AdvReac Type Severity Reaction Status Date / Time denosumab (From Prolia) AdvReac Severe Muscle Pain Verified 01/08/25 13:41 duloxetine AdvReac Intermediate Drowsy Verified 01/08/25 13:41 morphine AdvReac Intermediate mental Verified 01/08/25 13:41 status changes Review of Systems Review of Systems Narrative: Pertinent positive and negative findings as per HPI Patient History Medical History Paroxysmal atrial fibrillation Cellulitis Left hip pain Lumbar spondylosis Closed L1 vertebral fracture Cervical spondylosis Chronic neck pain Uncomplicated opioid dependence Chronic renal failure, stage 3a Chronic systolic (congestive) heart failure Glaucoma (~11/2016) Osteoporosis 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) History of duodenal ulcer History of gastrointestinal hemorrhage Essential hypertension Idiopathic scoliosis (07/03/11) Hiatal hernia (07/03/11) Chronic back pain Status post nephrectomy Social History marital status: number of children: 2 household members: none lives independently: Yes caregiver/support person: Yes housing: house pets and animals: Yes education level: college occupational status: other 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: [employer] travel history: other leisure activities: reading and other Smoking Status: Smoker, status unknown Tobacco: How many years used: 8 Smokeless tobacco user: other quit status: quit date established second hand exposure: No alcohol intake: current substance use type: does not use Smoking Status: Smoker, status unknown alcohol intake frequency: holidays/special occasions only Exam Initial Vital Signs Initial Vital Signs: Vital Signs Temperature 98.7 F 01/08/25 13:41 Pulse Rate 66 01/08/25 13:41 Respiratory Rate 17 01/08/25 13:41 Blood Pressure 173/79 H 01/08/25 13:41 Pulse Oximetry 93 01/08/25 13:41 Oxygen Delivery Method Room Air 01/08/25 13:41 General: Frail appearing but in no acute distress. Oxygen saturations at 84% without oxygen supplementation HEENT: Moist mucous membranes, normal sclera with reactive pupils, no JVD Respiratory: Lungs with bibasilar crackles, no rhonchi no retractions Cardiac: Regular rate and rhythm no murmurs no bruits Abdomen: Soft, nontender, no rebound or guarding, no flank pain Skin: Chronic venous stasis changes bilaterally lower extremities without suggestion of worsening erythema or cellulitis Neurologic: Globally weak but otherwise Grossly neurologically intact with no obvious asymmetries or abnormalities Extremities: Increased [place] edema to lower extremities bilaterally. This is making her legs quite heavy which in turn is causing her knees to her. She complains she is unable to bend her knees in any way however no obvious effusions, warmth or redness Psych: Cooperative, appropriate insight and affect Course Orders Ordered: ED Orders 01/08/25 18:08 US periph venous low extrem bi Stat 01/08/25 18:33 CRP [C-Reactive Protein Quant] Stat Complete Blood Count AUTO DIFF Stat Comprehensive Metabolic Panel Stat ESR [Erythrocyte Sedimentation Rate] Stat Lipase Stat Procalcitonin Stat 01/08/25 18:54 BNP [NT-proBNP (BNP-Adult 18+)] Stat Lactate (Lactic Acid) Stat PTT Partial Thromboplastin Slava Stat Prothrombin Time INR Stat Trop I [Troponin I] Stat 01/08/25 19:02 Blood Culture Stat 01/08/25 19:55 XR chest 1V Stat Ondansetron HCl (Ondansetron 4 Mg/2 Ml Inj) 4 mg IV NOW PRN PRN Reason: Nausea And Vomiting Ondansetron HCl (Ondansetron 4 Mg Odt) 4 mg PO NOW PRN PRN Reason: Nausea And Vomiting Discontinued Medications Hydrocodone Bitart/Acetaminophen (Hydrocodone/Acet 5/325 Tablet) 2 tab PO NOW ONE Stop: 01/08/25 18:32 Last Admin: 01/08/25 18:39 Dose: 2 tab Documented By: TAMIKO Furosemide (Furosemide 40 Mg/4 Ml Vial) 20 mg IV NOW ONE Stop: 01/08/25 19:22 Last Admin: 01/08/25 19:57 Dose: 20 mg Documented By: JOANN Sodium Chloride (Normal Saline 0.9%) 1,000 mls @ 1,000 mls/hr IV BOLUS ONE Stop: 01/08/25 19:07 Last Infusion: 01/08/25 19:52 Dose: Infused Documented By: Admin: 01/08/25 18:39 Dose: 1,000 mls/hr Documented By: TAMIKO Metoprolol Succinate (Metoprolol Er 50 Mg Tablet) 50 mg PO NOW ONE Stop: 01/08/25 19:57 Last Admin: 01/08/25 20:33 Dose: 50 mg Documented By: JOANN Valsartan (Valsartan 80 Mg Tablet) 80 mg PO NOW ONE Stop: 01/08/25 19:57 Last Admin: 01/08/25 20:34 Dose: 80 mg Documented By: JOANN Vital Signs Vital signs: Vital Signs - 8 hr 01/08/25 13:41 01/08/25 16:30 01/08/25 18:06 Temperature 98.7 F Pulse Rate 66 70 70 Respiratory Rate 17 18 Blood Pressure 173/79 H 186/81 H Pulse Oximetry 93 97 Oxygen Delivery Method Room Air Nasal Cannula Oxygen Flow Rate 2 01/08/25 18:30 01/08/25 19:00 01/08/25 19:00 Temperature Pulse Rate 64 65 Respiratory Rate 24 24 Blood Pressure 182/88 H 183/88 H Pulse Oximetry 97 99 Oxygen Delivery Method Nasal Cannula Oxygen Flow Rate 3 01/08/25 19:30 01/08/25 19:30 01/08/25 20:00 Temperature Pulse Rate 65 66 Respiratory Rate 21 22 Blood Pressure 180/86 H Pulse Oximetry 98 99 Oxygen Delivery Method Nasal Cannula Nasal Cannula Oxygen Flow Rate 3 3 01/08/25 20:00 01/08/25 20:30 01/08/25 20:31 Temperature Pulse Rate 67 Respiratory Rate 23 Blood Pressure 176/89 H 150/70 H Pulse Oximetry Oxygen Delivery Method Oxygen Flow Rate 01/08/25 20:31 01/08/25 20:33 Temperature Pulse Rate 67 67 Respiratory Rate 24 Blood Pressure 150/70 H Pulse Oximetry 97 Oxygen Delivery Method Nasal Cannula Oxygen Flow Rate 3 MDM - Extremity (Nontraumatic) Lab Data 01/08/25 18:33 01/08/25 18:33 Labs: Lab Results 01/08/25 01/08/25 Range/Units 18:33 18:54 WBC 7.3 (4.5-11.0) X10^3/uL RBC 3.77 L (4.0-5.2) X10^6/uL Hgb 12.5 (12.0-16.0) g/dL Hct 39.6 (36-46) % MCV 105.1 H (80-100) fL MCH 33.1 (26-34) PG MCHC 31.5 (30-36) % RDW 16.5 H (11.6-14.8) % Plt Count 243 (150-400) X10^3/uL Neut % (Auto) 85.0 H (50-75) % Lymph % (Auto) 7.4 L (25-40) % [place] % (Auto) 6.9 (3-14) % Eos % (Auto) 0.2 L (2-4) % Baso % (Auto) 0.5 (0-2) % Neut # (Auto) 6200 (9760-5288) /uL Lymph # (Auto) 500 L (2728-7385) /uL [place] # (Auto) 500 (0-900) /uL Eos # (Auto) 0 (0-450) /uL Baso # (Auto) 0 (0-100) /uL ESR 20 (0-20) MM/HR PT 12.0 (9.4-12.5) SECONDS INR 1.1 (0.9-1.3) APTT 29 (25.1-36.5) SECONDS Sodium 141 (137-145) mmol/L Potassium 4.9 (3.4-5.1) mmol/L Chloride 106 (98-107) mmol/L Carbon Dioxide 29 (22-32) mmol/L BUN 20 H (7-17) mg/dL Creatinine 0.92 (0.52-1.04) mg/dL Estimated GFR > 60 (>60) mL/min BUN/Creatinine Ratio 21.7 (6-22) Glucose 115 H (70-99) mg/dL Lactate 1.3 (0.7-2.1) mmol/L Calcium 8.3 L (8.4-10.2) mg/dL Total Bilirubin 0.7 (0.2-1.3) mg/dL AST 36 (14-36) IU/L ALT 55 H (<35) IU/L Alkaline Phosphatase 89 (38-126) U/L Troponin I < 0.012 (0.01-0.034) ng/mL C-Reactive Protein 1.5 H (<1.0) mg/dL NT-Pro-B Natriuret Pep 56473 H (<450) pg/mL Total Protein 7.2 (6.3-8.2) g/dL Albumin 3.9 (3.5-5.0) g/dL Globulin 3.3 (1.7-4.1) g/dL Albumin/Globulin Ratio 1.2 (1.0-2.8) Lipase 34 (23-300) U/L Procalcitonin 0.051 (<0.5) ng/mL MDM Narrative Medical decision making narrative: CC: Overall body aches after prolia shot on January 05 Complicating co-morbidities: Paroxysmal atrial fibrillation, chronic renal failure, hypertension, chronic congestive heart failure Data collected from: patient Medical records reviewed: Primary care note from November 27 and January 05 of this year are reviewed Last admission for congestive heart failure was May 18, 2024. Cardiology note from October 26, combined chronic congestive heart failure with left ventricular ejection fraction at 40-45% with grade 2 diastolic dysfunction. Echo was April 2024. History of paroxysmal atrial fibrillation. She remains on amiodarone after paroxysmal atrial fibrillation event in April 2024. Recommendation was to continue her amiodarone given her high-risk for recurrent atrial fibrillation, no anticoagulation due to significant fall risk. His notes indicate that she had been on Lasix 20 mg daily I believe currently she is taking 40 mg of Lasix daily now. Differential considered: Secondary reaction to Prolia injection, doubt bilateral lower extremity cellulitis and doubt bilateral septic knees. Exam documented above, pertinent findings include: Patient has tenderness it both knees but no warmth or redness, [place] edema to lower extremities with chronic venous stasis changes not consistent with the acute cellulitis Lab Test results independently reviewed as above. Pertinent findings: CBC is unremarkable Chemistries show sodium at 146, creatinine at 1.0 , AST is 46 ALT is 79. Imaging studies independently reviewed: Lower extremity venous Doppler studies do not suggest DVT Treatments: 2 tablets of 5 mg hydrocodone acetaminophen, 20 mg of IV Lasix Re-evaluations: On re-evaluation, the patient's pain is better controlled with the Vicodin however she still feels she is unable to walk. She continues to be hypoxic with sats at 84% at rest on room air without oxygen. She goes up into the upper 90s with 2 L. She does not have history of pulmonary disease, does not use inhalers and notes that she has not had significant heart failure concerns typically takes her metoprolol succinate 50 mg b.i.d. as well as Entresto. She is given her 50 mg of metoprolol, we do not have Entresto but she will be given 80 mg of valsartan as a substitute. We will expand her workup to include chest x-ray, troponin BNP and more thorough evaluation for her acute and significant hypoxia. In light of negative DVT studies bilaterally in the fact that her heart rate is at 60 significantly lowers the likelihood of pulmonary embolism and further workup for PE is not indicated at this time In reviewing side effects of Prolia, her new medication, arthralgias, extremity pain edema are all expected. Significant hypoxia requiring oxygen an exacerbation of congestive heart failure is not. Discussion: 84-year-old woman presents complaining of severe lower extremity pain, presenting with [place] edema chronic venous stasis changes that are not cellulitic, and severe joint and bone pain to the point she is having difficulty walking after a prolia injection on the . She is hypoxic at rest down to 84% with nice recovery with 2 L of nasal cannula oxygen. BNP is elevated consistent with the acute congestive heart failure. No signs of significant infection or troponin leak, no signs of acute coronary syndrome. She does not have lower extremity DVTs and I am not concerned with cellulitis or sepsis. At this time I would like to admit the patient for volume overload with acute hypoxia(she does not use oxygen at home nor need inhalers) along with severe bone pain related to recent prolia injection. I think she will benefit from hospitalization with IV diuresis, close monitoring of renal function, pain medications for the acute bone pain and physical therapy evaluation for suggestions in managing the acute bone pain at home. Patient is followed by Dr. Castaneda, Dr. Collins is on-call we will contact her. Discharge Plan Departure Patient Disposition: Admitted As Inpatient Clinical Impression: Bone pain, Drug side effects Acute CHF (congestive heart failure) Qualifiers: Heart failure type: combined systolic and diastolic Qualified Code(s): I50.41 - Acute combined systolic (congestive) and diastolic (congestive) heart failure Bilateral knee pain Qualifiers: Chronicity: acute Qualified Code(s): M25.561 - Pain in right knee
[2025-01-08] MEDS: SODIUM CHLORIDE 0.9% 1,000 ML 1000 ML IV (18:39)
[2025-01-08] MEDS: HYDROCODONE/ACET 5/325 TABLET 2 TAB PO (18:39)
[2025-01-08 19:05] LABS: Add Manual Diff / Slide Review NO; Basophils Absolute Auto 0 /uL (0-100); Basophils Percent Auto 0.5 % (0-2); Eosinophils Absolute Auto 0 /uL (0-450); Eosinophils Percent Auto 0.2 % (2-4); Hematocrit 39.6 % (36-46); Hemoglobin 12.5 g/dL (12.0-16.0); Lymphocytes Absolute Auto 500 /uL (1100-4500); Lymphocytes Percent Auto 7.4 % (25-40); Mean Corpuscular HGB Conc 31.5 % (30-36); Mean Corpuscular Hemoglobin 33.1 PG (26-34); Mean Corpuscular Volume 105.1 fL (80-100); Monocytes Absolute Auto 500 /uL (0-900); Monocytes Percent Auto 6.9 % (3-14); Neutrophils Absolute Auto 6200 /uL (1500-7000); Platelet Count 243 X10^3/uL (150-400); Red Blood Cell Count 3.77 X10^6/uL (4.0-5.2); Red Cell Distribution Width 16.5 % (11.6-14.8); White Blood Cell Count 7.3 X10^3/uL (4.5-11.0)
[2025-01-08 19:10] LABS: Alanine Aminotransferase 55 IU/L (<35); Albumin 3.9 g/dL (3.5-5.0); Albumin Globulin Ratio 1.2 (1.0-2.8); Alkaline Phosphatase 89 U/L (38-126); Aspartate Aminotransferase 36 IU/L (14-36); BUN Creatinine Ratio 21.7 (6-22); Bilirubin Total 0.7 mg/dL (0.2-1.3); Blood Urea Nitrogen 20 mg/dL (7-17); C-Reactive Protein Quant 1.5 mg/dL (<1.0); Calcium 8.3 mg/dL (8.4-10.2); Carbon Dioxide 29 mmol/L (22-32); Chloride 106 mmol/L (98-107); Estimated Glomerular Filt Rate > 60 mL/min (>60); Globulin 3.3 g/dL (1.7-4.1); Glucose 115 mg/dL (70-99); Lipase 34 U/L (23-300); Sodium 141 mmol/L (137-145); Total Protein 7.2 g/dL (6.3-8.2)
[2025-01-08 19:12] LABS: HEMOLYSIS 56 (0-50); Potassium 4.9 mmol/L (3.4-5.1)
[2025-01-08 19:13] LABS: INR 1.1 (0.9-1.3)
[2025-01-08 19:15] LABS: PTT Partial Thromboplastin Tim 29 SECONDS (25.1-36.5)
[2025-01-08 19:17] LABS: Lactate (Lactic Acid) 1.3 mmol/L (0.7-2.1)
[2025-01-08 19:24] LABS: Procalcitonin 0.051 ng/mL (<0.5)
[2025-01-08 19:29] LABS: Erythrocyte Sedimentation Rate 20 MM/HR (0-20)
--- NOTE | 2025-01-08 19:55 | DI.RAD.S_ITS ---
PROCEDURE: XR CHEST 1V INDICATIONS: dyspnea TECHNIQUE: One view of the chest was acquired. COMPARISON: [facility], CR, XR CHEST 1V, 05/15/2024, 6:34. FINDINGS: Surgical changes and devices: None. Lungs and pleura: Low lung volumes. Diffuse interstitial prominence. Central vascular congestion. Mild perihilar airway thickening. No new dense consolidations. Small bilateral pleural effusions. No pneumothorax. Mediastinum: Mediastinal contours appear normal. Heart size is enlarged. Bones and chest wall: No suspicious bony lesions. Overlying soft tissues appear unremarkable. IMPRESSION: Cardiomegaly with findings suggestive of pulmonary edema or CHF. Concurrent infectious or inflammatory process not excluded if clinically appropriate. No new dense consolidations identified. Dictated by: Robson Cheek M.D. on 01/08/2025 at 21:10 Approved by: Robson Cheek M.D. on 01/08/2025 at 21:11
[2025-01-08] MEDS: FUROSEMIDE 40 MG/4 ML VIAL 20 MG IV (19:57)
[2025-01-08 20:23] LABS: NT-proBNP (BNP-Adult 18+) 18900 pg/mL (<450); Troponin I < 0.012 ng/mL (0.01-0.034)
[2025-01-08] MEDS: METOPROLOL ER 50 MG TABLET PO (20:33)
[2025-01-08] MEDS: VALSARTAN 80 MG TABLET PO (20:34)
[2025-01-08 21:53] LABS: Add Manual Diff / Slide Review NO; Basophils Absolute Auto 0 /uL (0-100); Basophils Percent Auto 0.3 % (0-2); Eosinophils Absolute Auto 0 /uL (0-450); Eosinophils Percent Auto 0.2 % (2-4); Hematocrit 36.6 % (36-46); Hemoglobin 11.5 g/dL (12.0-16.0); Lymphocytes Absolute Auto 600 /uL (1100-4500); Lymphocytes Percent Auto 8.9 % (25-40); Mean Corpuscular HGB Conc 31.4 % (30-36); Monocytes Absolute Auto 600 /uL (0-900); Monocytes Percent Auto 8.5 % (3-14); Neutrophils Absolute Auto 5800 /uL (1500-7000); Neutrophils Percent Auto 82.1 % (50-75); Platelet Count 255 X10^3/uL (150-400); Red Blood Cell Count 3.49 X10^6/uL (4.0-5.2); Red Cell Distribution Width 16.7 % (11.6-14.8); White Blood Cell Count 7.1 X10^3/uL (4.5-11.0)
--- NOTE | 2025-01-08 22:17 | PC.NURSE ---
Report given to Elma STEPHENcare management coordinator.
--- NOTE | 2025-01-08 23:21 | PC.WOUNDPHOT ---
Redness under breasts. Redness/rash to olga area blanchable redness
[2025-01-09] VITALS (7 sets, daily range): BP systolic 112–137; BP diastolic 56–59; PULSE 59–65; RESP 15–18; TEMP 36.1–36.3; O2SAT 93–100
[2025-01-09] MEDS: FUROSEMIDE 40 MG/4 ML VIAL IV (04:47)
[2025-01-09 04:55] LABS: Add Manual Diff / Slide Review NO; Basophils Absolute Auto 0 /uL (0-100); Basophils Percent Auto 0.8 % (0-2); Eosinophils Absolute Auto 0 /uL (0-450); Hematocrit 37.9 % (36-46); Hemoglobin 11.7 g/dL (12.0-16.0); Lymphocytes Absolute Auto 600 /uL (1100-4500); Lymphocytes Percent Auto 11.5 % (25-40); Mean Corpuscular Hemoglobin 32.7 PG (26-34); Mean Corpuscular Volume 105.4 fL (80-100); Monocytes Absolute Auto 600 /uL (0-900); Monocytes Percent Auto 12.2 % (3-14); Neutrophils Absolute Auto 3700 /uL (1500-7000); Neutrophils Percent Auto 74.5 % (50-75); Platelet Count 235 X10^3/uL (150-400); Red Cell Distribution Width 16.6 % (11.6-14.8)
[2025-01-09 05:23] LABS: Alanine Aminotransferase 44 IU/L (<35); Albumin 3.2 g/dL (3.5-5.0); Albumin Globulin Ratio 1.2 (1.0-2.8); Alkaline Phosphatase 79 U/L (38-126); Aspartate Aminotransferase 23 IU/L (14-36); BUN Creatinine Ratio 18.9 (6-22); Bilirubin Total 0.5 mg/dL (0.2-1.3); Blood Urea Nitrogen 18 mg/dL (7-17); Calcium 7.7 mg/dL (8.4-10.2); Carbon Dioxide 31 mmol/L (22-32); Chloride 106 mmol/L (98-107); Estimated Glomerular Filt Rate 58 mL/min (>60); Globulin 2.6 g/dL (1.7-4.1); Glucose 102 mg/dL (70-99); HEMOLYSIS < 15 (0-50); Potassium 4.5 mmol/L (3.4-5.1); Sodium 142 mmol/L (137-145); Total Protein 5.8 g/dL (6.3-8.2)
[2025-01-09 05:31] LABS: NT-proBNP (BNP-Adult 18+) 20200 pg/mL (<450)
[2025-01-09] MEDS: PANTOPRAZOLE DR 40 MG TABLET PO (06:20)
--- NOTE | 2025-01-09 06:41 | PM.HP.IH.1 ---
History of Present Illness History of Present Illness Date Patient Seen: 01/09/25 Time Patient Seen: 06:42 Chief complaint: body aches, bilateral leg numbness Narrative: 84-year-old female who he was in her normal state of health it seems until she received Prolia injection on the 05 of January. With that she had began to have bilateral lower extremity pain but also bilateral lower extremity edema swelling. She had became unable to really to ambulate because of pain. Much of the pain resolved but her right knee he was still so painful that is she finds it very difficult to walk with that. She really denies any dyspnea or shortness for breath whatsoever but did note that her lower extremities were becoming swollen Evaluated in the ER found to have some element of acute on chronic congestive heart failure, as well as significant right knee pain felt to be secondary to the Prolia She was given IV furosemide and admitted for further evaluation ER labs mostly unremarkable. No DVT. 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) History of duodenal ulcer History of gastrointestinal hemorrhage Essential hypertension Idiopathic scoliosis (07/03/11) Hiatal hernia (07/03/11) Chronic back pain Status post nephrectomy Social History marital status: number of children: 2 household members: none lives independently: Yes caregiver/support person: Yes housing: house pets and animals: Yes education level: college occupational status: other Previous occupational history: [employer] kerry/taoism: [employer] travel history: other leisure activities: reading and other Smoking Status: Smoker, status unknown Tobacco: How many years used: 8 Smokeless tobacco user: other quit status: quit date established second hand exposure: No alcohol intake: current substance use type: does not use Meds Home Medications and Allergies Home Medications ?Medication ?Instructions ?Recorded ?Confirmed ?Type vitamin E 268 mg (400 unit) capsule 400 unit PO DAILY ##0 07/08/11 01/08/25 History ferrous sulfate 325 mg (65 mg 325 mg PO DAILY 10/13/18 01/08/25 History iron) tablet (Iron (ferrous sulfate)) Disabled Parking Permit #1 ea 01/04/24 01/08/25 Rx sacubitril 49 mg-valsartan 51 mg 1 tab PO BID 01/04/24 01/08/25 History tablet (Entresto) metoprolol succinate 50 mg 50 mg PO BID #180 tabs 06/05/24 01/08/25 Rx tablet,extended release 24 hr amiodarone 200 mg tablet 200 mg PO DAILY #90 tabs 06/15/24 01/08/25 Rx omeprazole 40 mg capsule,delayed 40 mg PO QDAY #90 caps 09/12/24 01/08/25 Rx release furosemide 40 mg tablet 40 mg PO DAILY #90 tabs 09/25/24 01/08/25 Rx hydrocodone 5 mg-acetaminophen 325 1 tab PO Q4H PRN pain #90 tabs 11/27/24 01/08/25 Rx mg tablet denosumab 60 mg/mL subcutaneous 60 mg SUBCUT .every 6 months 01/08/25 01/08/25 History syringe (Prolia) Allergies Allergy/AdvReac Type Severity Reaction Status Date / Time denosumab (From Prolia) AdvReac Severe Muscle Pain Verified 01/08/25 13:41 duloxetine AdvReac Intermediate Drowsy Verified 01/08/25 13:41 morphine AdvReac Intermediate mental Verified 01/08/25 13:41 status changes Review of Systems Review of Systems ROS: Yes All systems reviewed with the patient and are negative except as otherwise documented Exam Vital Signs (past 8 hours): - 01/08/25 22:50 01/08/25 23:22 01/09/25 03:42 Temperature 97.5 F L 97.2 F L Pulse Rate 64 59 L Respiratory Rate 18 18 Blood Pressure 110/57 L 112/56 L Pulse Oximetry 96 95 Oxygen Delivery Method Nasal Cannula Oxygen Flow Rate 2 0 Oxygen Delivery Method Nasal Cannula Oxygen Flow Rate 0 Narrative Exam Narrative: Elderly female in no obvious distress sitting up in bed working on eating breakfast HEENT-unremarkable Lungs-clear with good breath sounds Heart-regular rate and rhythm Abdomen-benign [place]pci[place]hlm-1-0+ [place] type edema to the knee bilaterally Objective Labs 01/09/25 04:30 01/09/25 04:30 Labs: Laboratory Results - last 24 hr 01/08/25 01/08/25 01/08/25 18:33 18:54 20:15 WBC 7.3 7.1 RBC 3.77 L 3.49 L Hgb 12.5 11.5 L Hct 39.6 36.6 MCV 105.1 H 105.0 H MCH 33.1 33.0 MCHC 31.5 31.4 RDW 16.5 H 16.7 H Plt Count 243 255 Neut % (Auto) 85.0 H 82.1 H Lymph % (Auto) 7.4 L 8.9 L [place] % (Auto) 6.9 8.5 Eos % (Auto) 0.2 L 0.2 L Baso % (Auto) 0.5 0.3 Neut # (Auto) 6200 5800 Lymph # (Auto) 500 L 600 L [place] # (Auto) 500 600 Eos # (Auto) 0 0 Baso # (Auto) 0 0 ESR 20 PT 12.0 INR 1.1 APTT 29 Sodium 141 Potassium 4.9 Chloride 106 Carbon Dioxide 29 BUN 20 H Creatinine 0.92 Estimated GFR > 60 BUN/Creatinine Ratio 21.7 Glucose 115 H Lactate 1.3 Calcium 8.3 L Total Bilirubin 0.7 AST 36 ALT 55 H Alkaline Phosphatase 89 Troponin I < 0.012 C-Reactive Protein 1.5 H NT-Pro-B Natriuret Pep 17650 H Total Protein 7.2 Albumin 3.9 Globulin 3.3 Albumin/Globulin Ratio 1.2 Lipase 34 Procalcitonin 0.051 01/09/25 04:30 WBC 5.0 RBC 3.60 L Hgb 11.7 L Hct 37.9 MCV 105.4 H MCH 32.7 MCHC 31.0 RDW 16.6 H Plt Count 235 Neut % (Auto) 74.5 Lymph % (Auto) 11.5 L [place] % (Auto) 12.2 Eos % (Auto) 1.0 L Baso % (Auto) 0.8 Neut # (Auto) 3700 Lymph # (Auto) 600 L [place] # (Auto) 600 Eos # (Auto) 0 Baso # (Auto) 0 ESR PT INR APTT Sodium 142 Potassium 4.5 Chloride 106 Carbon Dioxide 31 BUN 18 H Creatinine 0.95 Estimated GFR 58 L BUN/Creatinine Ratio 18.9 Glucose 102 H Lactate Calcium 7.7 L Total Bilirubin 0.5 AST 23 ALT 44 H Alkaline Phosphatase 79 Troponin I C-Reactive Protein NT-Pro-B Natriuret Pep 09912 H Total Protein 5.8 L Albumin 3.2 L Globulin 2.6 Albumin/Globulin Ratio 1.2 Lipase Procalcitonin Assessment & Plan Assessment & Plan narrative: 1. Acute on chronic congestive heart failure with reduced left ventricular ejection fraction-continue with vigorous parental diuretics. Unfortunately we do not have patient's Entresto on formulary here, ARB valsartan has been used as a substitute. 2. Arthralgias/bone pain-likely secondary to the Prolia injection. That has been placed on her intolerance list. Hopefully with time this will improve. Will have her seen by PT LAVELL mancera 3. Paroxysmal atrial fibrillation-continue patient on her amiodarone and metoprolol 4. Hypertension-continue patient's metoprolol plus the substitute valsartan for the Entresto 5. Chronic pain syndrome-patient was chronic back pain from a variety of etiologies. Continue with her chronic use of hydrocodone 6. Osteoporosis-patient is now intolerant of Prolia. She has already had 5+ years of a bisphosphonate. No additional therapies anticipated during this hospitalization 7. VTE prophylaxis-Lovenox appropriate and has been ordered 8. Code status-patient requests a do not resuscitate status in the event of a sudden cardiac or respiratory arrest. She understands this would result in her demise. This is also not anticipated at this time and discussed with her. Therefore she was most appropriate for a do not resuscitate status, which has been ordered Time-Based Coding :: [TOTAL MINUTES] spent with patient and on the chart (including review of chart, obtaining history, exam, reviewing outside data, placing orders, documenting exam and treatment plan, and counseling patient) on [DATE]. Quality VTE Deep Vein Thrombosis/Pulmonary Embolism Present on Admission: No [facility] PROFEE Park Guide Document charge(s): Yes Charge Codes Initial inpatient/observation care: 16389
[2025-01-09] MEDS: HYDROCODONE/ACET 5/325 TABLET 1 TAB PO ×2 (08:36→21:59)
[2025-01-09] MEDS: METOPROLOL ER 50 MG TABLET PO ×2 (08:36→22:00)
[2025-01-09] MEDS: AMIODARONE 200 MG TABLET PO (08:36)
[2025-01-09] MEDS: ENOXAPARIN 40 MG/0.4 ML SYRINGE SUBCUT (08:36)
--- NOTE | 2025-01-09 11:24 | OT.IP.EVAL ---
Current Diagnoses Acute systolic (congestive) heart failure (01/08/25) Past Medical History (Last Reviewed 01/09/25 @ 06:43 by Charles Castaneda MD) Cellulitis Cervical spondylosis Chronic back pain Chronic Sergey lesion (02/16/17) Chronic neck pain Chronic renal failure, stage 3a Chronic systolic (congestive) heart failure Closed L1 vertebral fracture 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) Essential hypertension Glaucoma (~11/2016) Hiatal hernia (07/03/11) History of duodenal ulcer History of gastrointestinal hemorrhage Idiopathic scoliosis (07/03/11) Left hip pain Lumbar spondylosis Osteoporosis Paroxysmal atrial fibrillation 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 Activities of Daily Pt able to do all ADL , bills, and medications of her Living and IADL's own. Social History Household Members none Living Arrangements Assisted Living Home Environment Standard Height Toilet,Walk in Shower Home Equipment Four Wheel Walker,Raised Toilet Seat w/Armrests,Shower Seat with Backrest,Hand Held Shower,Equity Analyst,Sock Aid, Lift Recliner,Grab Bars In Shower Additional Social Pt states sleep in her lift recliner at home. History Comment M2 OT-IP Current Condition Start: 01/09/25 14:02 Freq: Status: Active Protocol: Document 01/09/25 10:30 [facility] (Rec: 01/09/25 14:24 [facility] Desktop) Occupational Therapy Current Condition Current Condition Evaluation Date 01/09/25 Treatment Diagnosis Acute CHF Diagnosis Onset Date 01/08/25 M3 OT- IP Subjective and Pain Start: 01/09/25 14:02 Freq: Status: Active Protocol: Document 01/09/25 10:30 [facility] (Rec: 01/09/25 14:24 [facility] Desktop) OT- Subjective Occupational Therapy Visit Type Type Initial Evaluation Visit Start Time 10:30 Visit Stop Time 11:24 Occupational Therapy Visit Comments Patient Comments Pt agreed to get up. Patient/Caregiver To go home. Goals OT Pain Assessment Pain When Pain Assessed At Rest Pain Present Pain Present Pain Reported Location Right Leg Intensity 5 Scale Used Numeric (0 - 10) Pain Behaviors Calling Out,Facial Grimacing M4 OT- IP ADL's Start: 01/09/25 14:02 Freq: Status: Active Protocol: Document 01/09/25 10:30 [facility] (Rec: 01/09/25 14:24 [facility] Desktop) OT [id number] Comments OT Self-Feeding Not at meal time. Comments OT ADL-Grooming Comments OT Grooming Comments Pt states did prior while in bed. OT ADL-Oral Care Comments Oral Care Comments Pt states did earlier. OT ADL-Dressing General Eval Lower Body Dressing Maximum Assistance Ability OT ADL-Toileting General Evaluation Toileting Ability Total Assistance Comments OT Toileting Use of purewick. Comments OT ADL-Bathing Comments OT Bathing Comments Sponge bath more appropriate at this time. M5 OT- IP IADL's Start: 01/09/25 14:02 Freq: Status: Active Protocol: Document 01/09/25 10:30 [facility] (Rec: 01/09/25 14:24 [facility] Desktop) OT-Instrumental Activities of Daily Living Home Safety Awareness Awareness of Need Good Awareness for Assistance at Home Medication Management Medication Pt would benefit from at least supervision at this time Management Comments . Money Management Money Management Pt would benefit from at least supervision. Comments Meal Preparation Meal Preparation Caregiver Provides Assist Fish Hatchery Specialist Fish Hatchery Specialist Pt will need assist. Comments M6 OT- IP Functional Cognition Start: 01/09/25 14:02 Freq: Status: Active Protocol: Document 01/09/25 10:30 [facility] (Rec: 01/09/25 14:24 [facility] Desktop) Cognitive Factors Limiting Selfcare Function Cognitive Ability Level of Alertness Alert Patient Orientation Name,Place,Situation Attention Span Capable of Focused Attention Ability Ability to Follow Able to Follow One Step Commands Commands Cognitive Comments Cognitive Assessment Pt able to follow commands for mobility needs at this Comments time. Pt needing encouragement and safety cues to follow. OT- Vision and Hearing OT- Hearing Assessment OT- Hearing WFL Assessment OT- Vision Assessment Visual Acuity Glasses For Reading Visual Attentiveness WFL Occular Pursuits WFL Visual Convergence WFL Visual Roy WFL Diplopia Absent M7 OT- IP Mobility and Balance Start: 01/09/25 14:02 Freq: Status: Active Protocol: Document 01/09/25 10:30 [facility] (Rec: 01/09/25 14:24 [facility] Desktop) OT- Bed Mobility Assessment Rolling Level of Assistance Maximum Assistance Supine to Sit Supine to Sit Assist Maximum Assistance,1 Person Assistance,Head of Bed Elevated,Bedrails Scooting Scooting to Edge of Maximum Assistance,1 Person Assistance Bed Scooting Up and Down Maximum Assistance,2 Person Assistance in Bed OT-Transfer Assessment Sit to and From Stand Sit to and from Maximum Assistance,2 Person Assistance Stand Comments Mobility Comments Pt having lots of pain with her legs RLE> LLE an needing assist to help move her legs to the edge of the bed and assist to help get her trunk upright. MAX AX 1 with use of green pad to scoot the the edge of the bed . MAX XA 2 to stand to the FWW and not able to stand all the way and wanting to sit back down. MAX XA 2 to lie back down. OT- Balance Assessment Sitting Balance and Reactions Static Sitting Fair Balance Ability Dynamic Sitting Poor Balance Ability Standing Balance and Reactions Static Standing Poor Balance Ability Dynamic Standing Poor Balance Ability Comments Other Balance Tests/ Pt sits with very flexed posture at her neck and trunk. Deviations/Treatment Pt sits in posterior tilt. : M8 OT- IP Objective Assessments Start: 01/09/25 14:02 Freq: Status: Active Protocol: Document 01/09/25 10:30 [facility] (Rec: 01/09/25 14:24 [facility] Desktop) OT Gross Range of Motion Upper Extremity Range of Motion Assessment Bilaterally Impaired ROM Impairments Decreased at edge UDAY OT Strength Upper Extremity Strength Assessment Bilaterally Impaired Comments Strength Comments BUE from proximal to distal 4-/5 to 4/5. OT- Coordination Assessment Upper Extremity Finger to Nose Test Within Functional Limits M9 OT- IP Assessment and Plan Start: 01/09/25 14:02 Freq: Status: Active Protocol: Document 01/09/25 10:30 [facility] (Rec: 01/09/25 14:24 [facility] Desktop) OT Summary Assessment and Plan Potential Rehabilitation Good Potential Analytic Complexity Moderate at Evaluation Summary OT Impairments Pain,Strength,Balance,Functional Cognition,Functional Mobility,Grooming,Dressing,Toileting,Bathing,Toilet Transfers,Shower Transfers,Activity Tolerance Progress Towards Slow Progress due to Pain,Slow Progress due to Medical Goals Issues,Slow Progress due to Activity Tolerance Assessment Summary Pt MOD complexity and main barriers decreased strength, endurance, activity tolerance and now needing two person assist to stand to the FWW. Pt too weak and in pain to be able to transfer today. Prior pt was CHRISTEL with all needs and will benefit from skilled rehab. Initiated pt on doing BUE and BLE exercises in bed and use of spirometer. Pt on RA and dropped from 93-87% during exertion. Pt needing to have O2 for mobility needs. Prior last year 04/2024, pt had admit for acute CHF and did go to skilled rehab. Goals Self-Feeding Goal Independent Grooming Goal Independent Dressing Goal Independent,Equity Analyst Toileting Goal Independent Bathing Goal Independent Toilet Transfer Goal Independent Shower Transfer Goal Independent Days to Meet Goals 20 Frequency of Treatment Other frequency 5x/week Treatment Plan OT Treatment Plan ADL Training,Functional Cognition Training,Functional Mobility,Patient/Family Education,Discharge Planning Other Treatment MODA X 2 with FWW transfer to [facility]. Recommendations and Next Treatment Focus Discharge Recommendations OT Discharge SNF Rehab Recommendations Transportation Needs Wheelchair/Cabulance at Discharge
--- NOTE | 2025-01-09 12:59 | PT-IP ANOTE ---
PT eval order received. EMR reviewed. checked on pt this morning but pt was working with OT. will check again this afternoon.
[2025-01-09 13:12] LABS: Acinetobacter calcoa-baumannii Not Detected (Not Detect); Bacteroides fragilis Not Detected (Not Detect); Candida albicans Not Detected (Not Detect); Candida auris Not Detected (Not Detect); Candida glabrata Not Detected (Not Detect); Candida krusei Not Detected (Not Detect); Candida parapsilosis Not Detected (Not Detect); Candida tropicalis Not Detected (Not Detect); Cryptococcus neoformans/gatti Not Detected (Not Detect); Enterobacter cloacae complex Not Detected (Not Detect); Enterobacterales Not Detected (Not Detect); Enterococcus faecalis Not Detected (Not Detect); Enterococcus faecium Not Detected (Not Detect); Haemophilus influenzae Not Detected (Not Detect); Klebsiella aerogenes Not Detected (Not Detect); Listeria monocytogenes Not Detected (Not Detect); Neisseria meningitidis Not Detected (Not Detect); Proteus species Not Detected (Not Detect); Pseudomonas aeruginosa Not Detected (Not Detect); Salmonella species Not Detected (Not Detect); Serratia marcescens Not Detected (Not Detect); Staphylococcus epidermidis Not Detected (Not Detect); Staphylococcus lugdunensis Not Detected (Not Detect); Staphylococcus species Detected (Not Detect); Stenotrophomonas maltophilia Not Detected (Not Detect); Streptococcus agalactiae (Gr B Not Detected (Not Detect); Streptococcus pneumonia Not Detected (Not Detect); Streptococcus pyogenes (Gr A) Not Detected (Not Detect); Streptococcus species Not Detected (Not Detect)
--- NOTE | 2025-01-09 14:20 | PT.IIE ---
Current Diagnoses Acute systolic (congestive) heart failure (01/08/25) Medical History (Last Reviewed 01/09/25 @ 06:43 by Charles Castaneda MD) Cellulitis Cervical spondylosis Chronic back pain Chronic Sergey lesion (02/16/17) Chronic neck pain Chronic renal failure, stage 3a Chronic systolic (congestive) heart failure Closed L1 vertebral fracture 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) Essential hypertension Glaucoma (~11/2016) Hiatal hernia (07/03/11) History of duodenal ulcer History of gastrointestinal hemorrhage Idiopathic scoliosis (07/03/11) Left hip pain Lumbar spondylosis Osteoporosis Paroxysmal atrial fibrillation 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) Uncomplicated opioid dependence Physical Therapy Inpatient Evaluation/Re-Eval M1 PT/OT-IP Prior Functional Status Start: 01/09/25 17:54 Freq: NEEDED Status: Active Protocol: Document 01/09/25 14:20 [facility] (Rec: 01/09/25 18:12 AB [id number]) Medical Review Prior Functional Status Medical History Yes Reviewed Communication able to make needs known Mobility and Gait pt stated that she was modified independent with all mobilities and ambulation using a 4WW; stated that she just ordered an electric scooter that should be coming January 15 Activities of Daily Pt able to do all ADL , bills, and medications of her Living and IADL's own. Social History Household Members none Living Arrangements Alf Facility Number of Floors ( Two Floors Floors) Number of Stairs To pt lives at [facility]: access to an elevator Enter/Railing? Home Environment Standard Height Toilet,Walk in Shower,Elevator Home Equipment Four Wheel Walker,Raised Toilet Seat w/Armrests,Shower Seat with Backrest,Hand Held Shower,Grab Bars In Shower M2 PT-IP Current Condition Start: 01/09/25 17:54 Freq: NEEDED Status: Active Protocol: Document 01/09/25 14:20 [facility] (Rec: 01/09/25 18:12 AB [id number]) Physical Therapy Current Condition Current Condition Evaluation Date 01/09/25 Treatment Diagnosis CHF; LE pain; difficulty in walking Onset Date 01/08/25 M3 PT-IP Subjective Start: 01/09/25 17:54 Freq: NEEDED Status: Active Protocol: Document 01/09/25 14:20 [facility] (Rec: 01/09/25 18:12 AB [id number]) Subjective Physical Therapy Visit Type Type Initial Evaluation Visit Start Time 14:20 Visit Stop Time 15:05 Number of ADMINISTRATIVE TECHNICIAN Visits 0 Physical Therapy Visit Comments Patient Comments agreeable to do PT Therapy Pain Assessment Pain When Pain Assessed At Rest Pain Present Pain Present Pain Reported Location Right Leg Scale Used pain scale not stated Pain Behaviors Calling Out,Guarding,Wincing Pain Management Distraction,Modification of Treatment,Re-positioning, Techniques Timing of Activity with Medications M4 PT-IP Mobility and Gait Start: 01/09/25 17:54 Freq: NEEDED Status: Active Protocol: Document 01/09/25 14:20 [facility] (Rec: 01/09/25 18:12 [id number]) PT-Bed Mobility Assessment Supine to Sit Supine to Sit Maximum Assistance,2 Person Assistance,Head of Bed Elevated,Bedrails Sit to Supine Sit to Supine Maximum Assistance,2 Person Assistance Scooting Scooting Up and Down Maximum Assistance in Bed PT-Transfer Assessment Sit to and From Stand Sit to and from Maximum Assistance,1 Person Assistance,2 Person Stand Assistance,Use of Upper Extremities Equipment Transfer Assistive Gait Belt,Front Wheeled Walker Device Orthotic/Prosthetic No Devices or Brace: Comments Mobility Comments pt in bed and agreeable to do PT. obtained PLOF and home set up. pt with supplemental O2 at 1L/min and O2 sat: 96%. completed supine to sit max A x 2 and max cues. pt presents with increase kyphosis with lateral bending to the L. pt stated that she has scoliosis. able to sit CGA. max A to scoot to EOB. NAC present to assist. pt needing to be cleaned up and change. sit to stand from EOB max A x 1-2 and max cues. O2 sat: 94% with O2 on. only able to stand for 10 sec and needs to sit down. sit to stand again max A x 1-2 and max cues. pt able to stand max A using FWW for support while NAC assist pt with hygiene care and brief management. pt sat back on EOB. pt refused to transfer to the chair and wants to go back to bed. Assisted pt to lateral scoot to EOB max A x 2 and max cues. sit to supine max Ax 2 and max cues. positioned pt in bed. call light and table placed within reach. Gait Assessment Comments Gait Comments unable at this time PT-Balance Assessment Sitting Balance and Reactions Static Sitting Good Balance Ability Dynamic Sitting Good Balance Ability Standing Balance and Reactions Static Standing Poor Balance Ability Dynamic Standing Poor Balance Ability Device Used FWW M5 PT-IP Objective Assessments Start: 01/09/25 17:54 Freq: NEEDED Status: Active Protocol: Document 01/09/25 14:20 [facility] (Rec: 01/09/25 18:12 AB [id number]) Orientation Orientation/Cognition Level of Alertness Alert Orientation Name,Place,Situation Language Function Hard of Hearing Ability Safety Awareness Decreased Safety Awareness Memory Description No Deficits Noted Gross Range of Motion Lower Extremity ROM Impairments pt with c/o R knee pain with movement limiting ROM Strength Lower Extremity Strength Assessment Right Impaired Hip 3-/5 Knee 3-/5 Muscle Tone Muscle Tone WNL Yes M6 PT-IP Treatment Start: 01/09/25 17:54 Freq: NEEDED Status: Active Protocol: Document 01/09/25 14:20 [facility] (Rec: 01/09/25 18:12 AB [id number]) Physical Therapy Treatment Exercises Exercises Heel Slides Education Education Provided Safety M7 PT-IP Assessment and Plan Start: 01/09/25 17:54 Freq: NEEDED Status: Active Protocol: Document 01/09/25 14:20 [facility] (Rec: 01/09/25 18:12 AB [id number]) PT Summary Assessment and Plan Potential Rehabilitation Fair Potential Status of Condition Unstable at Evaluation Summary Impairments Pain,ROM,Strength,Balance,Coordination,Sensation,Tone, Cognition,Bed Mobility,Transfers,Gait,Activity Tolerance Assessment Summary pt is an 84 y/o F who presented to the ED with c/o LE pain. pt stated that she started to have overall pain after she had her medication injection for her osteoporosis; stated that pain was better in other parts of her body except her R LE/ knee. pt also admitted for CHF. pt requiring max a x 2 for mobility and unable to tolerate much activity due to c/o pain. pt unable to ambulate at this time or tolerate standing well enough to transfer into a chair. pt will require 24/7 assist and will benefit from SNF rehab. will continue to assess. Goals Bed Mobility Goal Minimal Assistance Transfer Goal Minimal Assistance,Front Wheeled Walker Gait Goal Minimal Assistance,Front Wheel Walker Gait Distance 50 Other Goals improve bed mobility, transfers, ambulation using 4WW ~ 150 ft SBA Days to Meet Goals 10 Frequency of Treatment Frequency Of Once a Day Treatment Treatment Plan Physical Therapy Bed Mobility Training,Transfer Training,Gait Training, Treatment Plan Therapeutic Exercise,Balance Retraining,Discharge Planning,Hot or Cold Pack,Neuromuscular Re-ed, Coordination Retraining Precautions Other Precautions falls, O2 sat Recommendations To Nursing Amount of Assist Mechanical Lift Needed Discharge Recommendations PT Discharge SNF Rehab Recommendations Transportation Needs Wheelchair/Cabulance,Stretcher/Ambulance at Discharge - PT assist 2
--- NOTE | 2025-01-09 14:43 | CM.DANOTE ---
DCP Assessment Note pt is an 84yo F under the care of Dr. Castaneda here for CHF exacerbation/reaction to prolia injection. PCP Leonel Payer [facility] Medicare and self pay. ASSEMBLY LEAD PERSON reviewed EMR. DC timeline pending. per OT, 2PA/ana at this time. rec SNF. PT eval pending. ASSEMBLY LEAD PERSON met with pt in room and introduced self and role. pt confirmed living at [facility] indep, local supportive dtr Phi helps as needed. but not on assisted living side. pt reports she's weaker than normal with perference to dc to [facility] with increased assistance. pt reports understanding that increased assistance/ana at [facility] not likely to occur. hopeful will improve with therapies tomorrow. backup plan, open to 1) [facility] and 2) [facility] for SNF placement. Per Elma at , ([phone]) unable to accept ana need at this time. pt would need to be at her baseline indep/if assisted living now required, would need new assessment from their staff and that can take awhile to set up. ASSEMBLY LEAD PERSON faxed clinicals for her to review. (f [phone]) Elma will be out of office for a week starting tomorrow, POC is Mellisa (not a nurse but can connect with nurse. call main number and ask for Mellisa). Yola from [facility] reports they are contracted with pt's insurance, KINDLY agreed to review. acceptance/auth pending. PASRR needed. P: pt preference iis to 1) return to [facility] with increased assistance but understands that dc to SNF pending acceptance/auth more likely. [facility] pending. transport with facility likely. will continue to follow closely for DCP Coordination KATHLEEN Martínez Discharge Planning/Care Management Advanced directive, confirm from FAMILY Start: 01/08/25 23:04 Freq: Q24H Status: Active Protocol: Document 01/08/25 23:04 AT (Rec: 01/08/25 23:13 AT Desktop) Advance Directive, confirm on record Time 23:13 Person contacted self Copy received No CM Discharge Assessment Start: 01/08/25 22:01 Freq: Status: Active Protocol: Document 01/09/25 14:27 SL (Rec: 01/09/25 14:36 SL [id number]) Discharge Planning Assessment Assigned Discharge KATHLEEN Ledbetter Direct Care Supervisor DPOA/Assigned alok Yip Designee Name Contact Information [phone] Advance Directives? Yes Advance Directives No on File History Provided By Patient,Family Member,Medical Record Prior Living Assisted Living Arrangements Household Members none Type of Relies on Others transporation used prior to admit Facility Name [facility] Admitted From: Independent with ADL Yes 's Is patient alert and Yes oriented? Needs Assistance Meal Prep,Home Chores / Shopping With Comment Patient endorses she uses a FWW with wheels at baseline and uses cane when she is out in public at baseline. Patient/Family [facility] Facility Preference Discharge Plan Home Transportation Likely local Dtr Phi to transport at d/c vs facility Arrangement van transport Referrals Initiated [facility] If patient plan is No SNF: Has PASSR been completed? SNF/HH Preference [facility], acceptance and auth pending. Has Agency SNF been Yes contacted Whiteboard Updated Yes in Patient Room with name and ext. # of Livestock Speculator Review Status In Process Please Provide Date 01/09/25 Initial DC Assessment Was Performed Next Review Type Continued Stay Review
[2025-01-09] MEDS: FUROSEMIDE 60 MG in SODIUM CHLORIDE 0.9% 50 ML 112 MG IV (17:44)
[2025-01-10] MEDS: FUROSEMIDE 60 MG in SODIUM CHLORIDE 0.9% 50 ML 112 MG IV ×2 (05:27→17:19)
[2025-01-10] MEDS: PANTOPRAZOLE DR 40 MG TABLET PO (05:27)
[2025-01-10 05:37] LABS: BUN Creatinine Ratio 23.5 (6-22); Blood Urea Nitrogen 23 mg/dL (7-17); Calcium 7.4 mg/dL (8.4-10.2); Carbon Dioxide 34 mmol/L (22-32); Chloride 102 mmol/L (98-107); Estimated Glomerular Filt Rate 56 mL/min (>60); Glucose 105 mg/dL (70-99); HEMOLYSIS < 15 (0-50); Magnesium 2.1 mg/dL (1.6-2.3); Potassium 4.9 mmol/L (3.4-5.1); Sodium 139 mmol/L (137-145)
[2025-01-10 08:00] VITALS: BP 133/59; PULSE 57; RESP 18; TEMP 36.6; O2SAT 95
--- NOTE | 2025-01-10 08:09 | P.PN_ITS ---
Subjective Subjective Date Patient Seen: 01/10/25 Time Patient Seen: 08:09 Interval history: Continues with a good diuresis with the IV Lasix. Electrolytes renal function stable this morning on blood work Still with very minimal oxygen requirement Not really able to do much with physical therapy yesterday. Exam Vital Signs (past 8 hours): Fraction of Inspired Oxygen 24 SaO2/FiO2 Ratio 387 Oxygen Delivery Method Nasal Cannula Oxygen Flow Rate 1 Objective Labs 01/09/25 04:30 01/10/25 04:40 Labs: Laboratory Results - last 24 hr 01/08/25 01/10/25 18:54 04:40 Sodium 139 Potassium 4.9 Chloride 102 Carbon Dioxide 34 H BUN 23 H Creatinine 0.98 Estimated GFR 56 L BUN/Creatinine Ratio 23.5 H Glucose 105 H Calcium 7.4 L Magnesium 2.1 A.calcoaceticus-baumannii cmplx PCR Not detected Bacteroides fragilis Not detected Lizzy albicans (PCR) Not detected Lizzy auris (PCR) Not detected C. glabrata (PCR) Not detected C. krusei (PCR) Not detected C. parapsilosis (PCR) Not detected C. tropicalis (PCR) Not detected C. neoform/gattii (PCR) Not detected Enterobacterales (PCR) Not detected E. cloacae complex PCR Not detected Enterococc faecalis PCR Not detected Enterococc faecium PCR Not detected E. coli (PCR) Not detected H. influenzae (PCR) Not detected Klebsiella aerogenes (PCR) Not detected Klebsiella oxytoca PCR Not detected Klebsiella pneumoniae Not detected List. monocytogenes PCR Not detected N. meningitidis (PCR) Not detected Proteus species (PCR) Not detected Salmonella spp. (PCR) Not detected Serratia marcescens PCR Not detected Staphylococcus sp PCR Detected Staph aureus (PCR) Not detected mecA/C & MREJ Resist Gene Not applicable mecA/C-Methicil Resis Gene Not applicable mcr-1 Colistin Res Gene PCR Not applicable Staph epidermidis (PCR) Not detected Staph lugdunensis PCR Not detected S. maltophilia (PCR) Not detected Streptococcus sp PCR Not detected Group A Strep (PCR) Not detected Strep agalactiae (PCR) Not detected Strep pneumoniae (PCR) Not detected P. aeruginosa (PCR) Not detected Luh/B-Vanco Res Genes Not applicable blaIMP Car res Gene PCR Not applicable KPC-Carbap Res Gene PCR Not applicable blaNDM Car Res Gene PCR Not applicable OXA-48 Carbapenem Resis Gene (PCR) Not applicable blaVIM Car Res Gene PCR Not applicable CTX-M Gene Resistance (PCR) Not applicable [facility] Medical History Paroxysmal atrial fibrillation Cellulitis Left hip pain Lumbar spondylosis Cervical spondylosis Chronic neck pain Uncomplicated opioid dependence Chronic renal failure, stage 3a Chronic systolic (congestive) heart failure Closed L1 vertebral fracture Glaucoma (~11/2016) Osteoporosis 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) History of duodenal ulcer History of gastrointestinal hemorrhage Essential hypertension Idiopathic scoliosis (07/03/11) Hiatal hernia (07/03/11) Chronic back pain Status post nephrectomy Social History marital status: number of children: 2 household members: none lives independently: Yes caregiver/support person: Yes housing: house pets and animals: Yes education level: college occupational status: other 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 Acute on chronic congestive heart failure with reduced left ventricular ejection fraction-continue with vigorous parental diuretics. Unfortunately we do not have patient's Entresto on formulary here, ARB valsartan has been used as a substitute. No change for today continue monitor electrolytes etcetera. 2. Arthralgias/bone pain-likely secondary to the Prolia injection. That has been placed on her intolerance list. Hopefully with time this will improve. Continue to work with skilled therapies 3. Paroxysmal atrial fibrillation-continue patient on her amiodarone and metoprolol 4. Hypertension-continue patient's metoprolol plus the substitute valsartan for the Entresto 5. Chronic pain syndrome-patient was chronic back pain from a variety of etiologies. Continue with her chronic use of hydrocodone 6. Disposition-unclear whether or not patient will be able to return home. Continue to monitor for now she needs ongoing treatment for her acute congestive heart failure and therefore continued hospitalization for now Time-Based Coding :: [TOTAL MINUTES] spent with patient and on the chart (including review of chart, obtaining history, exam, reviewing outside data, placing orders, documenting exam and treatment plan, and counseling patient) on [DATE]. 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
[2025-01-10] MEDS: HYDROCODONE/ACET 5/325 TABLET 1 TAB PO ×2 (09:15→22:28)
[2025-01-10] MEDS: METOPROLOL ER 50 MG TABLET PO ×2 (09:16→21:35)
[2025-01-10] MEDS: ENOXAPARIN 40 MG/0.4 ML SYRINGE SUBCUT (09:16)
[2025-01-10] MEDS: AMIODARONE 200 MG TABLET PO (09:16)
[2025-01-10 09:51] VITALS: O2SAT 94
--- NOTE | 2025-01-10 13:09 | OT.IP.TRT ---
Current Diagnoses Acute systolic (congestive) heart failure (01/08/25) Occupational Therapy Treatment Note M2 OT-IP Current Condition Start: 01/09/25 14:02 Freq: Status: Active Protocol: Document 01/09/25 10:30 [facility] (Rec: 01/09/25 14:24 [facility] Desktop) Occupational Therapy Current Condition Current Condition Evaluation Date 01/09/25 Treatment Diagnosis Acute CHF Diagnosis Onset Date 01/08/25 M3 OT- IP Subjective and Pain Start: 01/09/25 14:02 Freq: Status: Active Protocol: Document 01/10/25 13:09 [facility] (Rec: 01/10/25 13:58 [facility] Desktop) OT- Subjective Occupational Therapy Visit Type Type Treatment Note Visit Start Time 13:09 Visit Stop Time 13:47 Occupational Therapy Visit Comments Patient Comments Pt agreed to try to get up. Patient/Caregiver TO get better and stronger so able to care for herself. Goals OT Pain Assessment Pain When Pain Assessed During Mobility Location Right Leg Intensity 7 Scale Used Numeric (0 - 10) M4 OT- IP ADL's Start: 01/09/25 14:02 Freq: Status: Active Protocol: Document 01/10/25 13:09 [facility] (Rec: 01/10/25 13:58 [facility] Desktop) OT [id number] Comments OT Self-Feeding Not at meal time. Comments OT ADL-Grooming General Evaluation Grooming Ability Standby Assistance Comments OT Grooming Comments Set-up assist and able to do in bed. OT ADL-Oral Care General Eval Oral Care Ability Independent Comments Oral Care Comments WHile in bed. OT ADL-Dressing General Eval Lower Body Dressing Maximum Assistance Ability Areas Needing Socks Assistance OT ADL-Toileting Comments OT Toileting Use of purewick. Comments OT ADL-Bathing Comments OT Bathing Comments Sponge bath more appropriate at this time. Pt able to sponge off her arms, face and armpits after set-up. M5 OT- IP IADL's Start: 01/09/25 14:02 Freq: Status: Active Protocol: Document 01/09/25 10:30 [facility] (Rec: 01/09/25 14:24 [facility] Desktop) OT-Instrumental Activities of Daily Living Home Safety Awareness Awareness of Need Good Awareness for Assistance at Home Medication Management Medication Pt would benefit from at least supervision at this time Management Comments . Money Management Money Management Pt would benefit from at least supervision. Comments Meal Preparation Meal Preparation Caregiver Provides Assist Urgent Care Urgent Care Pt will need assist. Comments M6 OT- IP Functional Cognition Start: 01/09/25 14:02 Freq: Status: Active Protocol: Document 01/10/25 13:09 [facility] (Rec: 01/10/25 13:58 [facility] Desktop) Cognitive Factors Limiting Selfcare Function Cognitive Comments Cognitive Assessment Pt now realizes best to go to skilled rehab. Pt able to Comments follow commands for ADL and mobility needs. To assess SLUMS tomorrow. Pt tested on 05/12/24 and scored 14/30 at that time. M7 OT- IP Mobility and Balance Start: 01/09/25 14:02 Freq: Status: Active Protocol: Document 01/10/25 13:09 [facility] (Rec: 01/10/25 13:58 [facility] Desktop) OT- Bed Mobility Assessment Supine to Sit Supine to Sit Assist Moderate Assistance,Maximum Assistance,1 Person Assistance,Head of Bed Elevated,Bedrails Sit to Supine Sit to Supine Assist Total Assistance,2 Person Assistance Scooting Scooting to Edge of Moderate Assistance,1 Person Assistance Bed Scooting Up and Down Maximum Assistance,2 Person Assistance in Bed OT-Transfer Assessment Sit to and From Stand Sit to and from Maximum Assistance,2 Person Assistance Stand Comments Mobility Comments Pt still needing assist to help move her RLE to the edge of the bed and able to move her LLE on her own. MAX A to help scoot her hips over to the edge of the bed and afterwards able to get herself to the EOB with increased time. MAX AX 2 to stand to the FWW and just able to shuffle her left foot side to side and turn her body in hopes of transfer to the left. Pt not able to complete transfer and wanting to sit back down and lie down and needing total A x2 to get from sit to supine. OT- Balance Assessment Sitting Balance and Reactions Static Sitting Good Balance Ability Dynamic Sitting Fair Balance Ability Standing Balance and Reactions Static Standing Poor Balance Ability Dynamic Standing Poor Balance Ability Comments Other Balance Tests/ Pt able to sit on the edge of the bed on her own. Pt Deviations/Treatment still has very flexed posture and posterior tilt. : M8 OT- IP Objective Assessments Start: 01/09/25 14:02 Freq: Status: Active Protocol: Document 01/09/25 10:30 [facility] (Rec: 01/09/25 14:24 [facility] Desktop) OT Gross Range of Motion Upper Extremity Range of Motion Assessment Bilaterally Impaired ROM Impairments Decreased at edge UDAY OT Strength Upper Extremity Strength Assessment Bilaterally Impaired Comments Strength Comments BUE from proximal to distal 4-/5 to 4/5. OT- Coordination Assessment Upper Extremity Finger to Nose Test Within Functional Limits M9 OT- IP Assessment and Plan Start: 01/09/25 14:02 Freq: Status: Active Protocol: Document 01/10/25 13:09 [facility] (Rec: 01/10/25 13:58 [facility] Desktop) OT Summary Assessment and Plan Potential Rehabilitation Good Potential Analytic Complexity Moderate at Evaluation Summary OT Impairments Pain,Strength,Balance,Functional Cognition,Functional Mobility,Grooming,Dressing,Toileting,Bathing,Toilet Transfers,Shower Transfers,Activity Tolerance Progress Towards Progressing Toward Goals Goals Assessment Summary Pt able to actively participate more during bed mobility and standing with the FWW with MAX AX2. Pt not able to move her RLE during the transfer due to pain and weakness and only able to pivot on her left foot minimally at this time. Tr lift still suggested for safe transfers at this time. Pt to go to skilled rehab when medically stable. Goals Self-Feeding Goal Independent Grooming Goal Independent Dressing Goal Independent,Human Resources Support Specialist Toileting Goal Independent Bathing Goal Independent Toilet Transfer Goal Independent Shower Transfer Goal Independent Days to Meet Goals 30 Frequency of Treatment Other frequency 5x/week Treatment Plan OT Treatment Plan ADL Training,Functional Cognition Training,Functional Mobility,Patient/Family Education,Discharge Planning Other Treatment MAXA X 2 with FWW to the [facility]. Recommendations and Next Treatment Focus Discharge Recommendations OT Discharge SNF Rehab Recommendations Transportation Needs Wheelchair/Cabulance at Discharge
--- NOTE | 2025-01-10 13:47 | CM.DPNOTE ---
DCP Note SPRAY GUN SIZER reviewed EMR per provider PN, home vs SNF. timeline pending. per PT/OT, continue to rec SNF. SPRAY GUN SIZER met with pt in room. reviewed how [facility] unable to provider 2PA. she would need to be at her baseline/not able to increase assistance that fast. pt understands. preference for SNF at . per [place] at , auth pending. able to accept. CC Cedrick kindly agreed to send updated clinicals. PASRR completed. P: anticipate dc to SNF at when medically stable/auth secured. will continue to folllow closely for DCP coordination KATHLEEN Loomis
--- NOTE | 2025-01-10 14:55 | PT.IPTN ---
Current Diagnoses Acute systolic (congestive) heart failure (01/08/25) Physical Therapy Treatment Note M2 PT-IP Current Condition Start: 01/09/25 17:54 Freq: NEEDED Status: Active Protocol: Document 01/09/25 14:20 [facility] (Rec: 01/09/25 18:12 AB [id number]) Physical Therapy Current Condition Current Condition Evaluation Date 01/09/25 Treatment Diagnosis CHF; LE pain; difficulty in walking Onset Date 01/08/25 M3 PT-IP Subjective Start: 01/09/25 17:54 Freq: NEEDED Status: Active Protocol: Document 01/10/25 14:55 [facility] (Rec: 01/10/25 16:58 AB [id number]) Subjective Physical Therapy Visit Type Type Treatment Note Visit Start Time 14:55 Visit Stop Time 15:25 Number of CUTTING MACHINE TENDER HELPER Visits 0 Physical Therapy Visit Comments Patient Comments agreeable to do PT Therapy Pain Assessment Pain When Pain Assessed At Rest Pain Present Pain Present Pain Reported Location Right Leg Intensity 6 Scale Used Numeric (0 - 10) Pain Behaviors Facial Grimacing,Guarding Pain Management Distraction,Modification of Treatment,Re-positioning, Techniques Timing of Activity with Medications M4 PT-IP Mobility and Gait Start: 01/09/25 17:54 Freq: NEEDED Status: Active Protocol: Document 01/10/25 14:55 [facility] (Rec: 01/10/25 16:58 AB [id number]) PT-Bed Mobility Assessment Supine to Sit Supine to Sit Contact Guard Assistance,1 Person Assistance,Head of Bed Elevated,Bedrails Sit to Supine Sit to Supine Maximum Assistance,2 Person Assistance PT-Transfer Assessment Sit to and From Stand Sit to and from Maximum Assistance,1 Person Assistance,2 Person Stand Assistance,Use of Upper Extremities Equipment Transfer Assistive Gait Belt,Front Wheeled Walker Device Orthotic/Prosthetic No Devices or Brace: Comments Mobility Comments pt in bed and agreeable to do PT. completed supine to sit CGA and cues. pt requiring increase time to complete all tasks. required max A for scooting to EOB . sit to stand max A x 1-2 and max cues. pt wanting to immediately sit back down once standing. encouraged to stay standing for few more seconds. tolerated ~ 10 sec of standing. max A for controlled descent to EOB. pt rested. agreed to stand again. sit to stand max A x 1-2 and max cues. attempted to side pivot to position closer to HOB but pt unable. instructed pt to just stay standing and tolerated 20 sec of standing. pt sat back on EOB. assisted pt to side scoot towards HOB total A x 2 and max cues. pt completed sit to supine max A x 2 and max cues. positioned pt in bed. call light and table placed within reach. M5 PT-IP Objective Assessments Start: 01/09/25 17:54 Freq: NEEDED Status: Active Protocol: Document 01/09/25 14:20 AB (Rec: 01/09/25 18:12 AB [id number]) Orientation Orientation/Cognition Level of Alertness Alert Orientation Name,Place,Situation Language Function Hard of Hearing Ability Safety Awareness Decreased Safety Awareness Memory Description No Deficits Noted Gross Range of Motion Lower Extremity ROM Impairments pt with c/o R knee pain with movement limiting ROM Strength Lower Extremity Strength Assessment Right Impaired Hip 3-/5 Knee 3-/5 Muscle Tone Muscle Tone WNL Yes M6 PT-IP Treatment Start: 01/09/25 17:54 Freq: NEEDED Status: Active Protocol: Document 01/10/25 14:55 [facility] (Rec: 01/10/25 16:58 AB [id number]) Physical Therapy Treatment Education Education Provided Safety M7 PT-IP Assessment and Plan Start: 01/09/25 17:54 Freq: NEEDED Status: Active Protocol: Document 01/10/25 14:55 AB (Rec: 01/10/25 16:58 AB [id number]) PT Summary Assessment and Plan Potential Rehabilitation Fair Potential Summary Impairments Pain,ROM,Strength,Balance,Coordination,Sensation,Tone, Cognition,Bed Mobility,Transfers,Gait,Activity Tolerance Progress Towards Slow Progress due to Medical Issues,Slow Progress due Goals to Activity Tolerance Assessment Summary pt improving slowly with mobility and able to tolerate standing using FWW for ~ 10-20 sec today but still unable to take steps to transfer to chair. pt will need SNF rehab to improve overall strength and mobility independence. Goals Bed Mobility Goal Minimal Assistance Transfer Goal Minimal Assistance,Front Wheeled Walker Gait Goal Minimal Assistance,Front Wheel Walker Gait Distance 50 Other Goals improve bed mobility, transfers, ambulation using 4WW ~ 150 ft SBA Days to Meet Goals 10 Frequency of Treatment Frequency Of Once a Day Treatment Treatment Plan Physical Therapy Bed Mobility Training,Transfer Training,Gait Training, Treatment Plan Therapeutic Exercise,Balance Retraining,Discharge Planning,Hot or Cold Pack,Neuromuscular Re-ed, Coordination Retraining Precautions Other Precautions falls, O2 sat Recommendations To Nursing Amount of Assist Mechanical Lift Needed Discharge Recommendations PT Discharge SNF Rehab Recommendations Transportation Needs Wheelchair/Cabulance,Stretcher/Ambulance at Discharge - PT assist 2
[2025-01-10 16:00] VITALS: BP 128/47; PULSE 66; RESP 18; TEMP 36.6; O2SAT 93
[2025-01-10 21:35] VITALS: BP 136/62; PULSE 63
[2025-01-10 21:47] VITALS: BP 136/62; PULSE 63; RESP 16; TEMP 35.7; O2SAT 97
[2025-01-10 22:20] VITALS: BP 128/60; PULSE 60
[2025-01-10] MEDS: BISACODYL 5 MG TABLET 10 MG PO (23:34)
[2025-01-11] MEDS: FUROSEMIDE 60 MG in SODIUM CHLORIDE 0.9% 50 ML 112 MG IV ×2 (05:38→16:57)
[2025-01-11] MEDS: PANTOPRAZOLE DR 40 MG TABLET PO (05:45)
[2025-01-11 05:51] LABS: BUN Creatinine Ratio 26.4 (6-22); Blood Urea Nitrogen 24 mg/dL (7-17); Calcium 7.2 mg/dL (8.4-10.2); Carbon Dioxide 38 mmol/L (22-32); Chloride 97 mmol/L (98-107); Estimated Glomerular Filt Rate > 60 mL/min (>60); Glucose 115 mg/dL (70-99); Magnesium 2.2 mg/dL (1.6-2.3); Potassium 4.7 mmol/L (3.4-5.1); Sodium 138 mmol/L (137-145)
[2025-01-11 05:55] LABS: HEMOLYSIS 78 (0-50)
--- NOTE | 2025-01-11 07:50 | P.PN_ITS ---
Subjective Subjective Date Patient Seen: 01/11/25 Time Patient Seen: 07:50 Interval history: Patient was uneventful day yesterday Still has a minimal oxygen requirement Really still unable to get up onto her feet the right leg he was particularly painful. A bit better than upon admission but not tremendously so. Likely going to need group home placement for some period of time. Patient does say she feels better but is not able to really demonstrate increased independence Lab work shows stability with the electrolytes and renal function on the parental diuretics Exam Vital Signs (past 8 hours): Fraction of Inspired Oxygen 24 SaO2/FiO2 Ratio 387 Oxygen Delivery Method Nasal Cannula Oxygen Flow Rate 1.5 Objective Labs 01/09/25 04:30 01/11/25 05:03 Labs: Laboratory Results - last 24 hr 01/11/25 05:03 Sodium 138 Potassium 4.7 Chloride 97 L Carbon Dioxide 38 H BUN 24 H Creatinine 0.91 Estimated GFR > 60 BUN/Creatinine Ratio 26.4 H Glucose 115 H Calcium 7.2 L Magnesium 2.2 PFSH Medical History Paroxysmal atrial fibrillation Cellulitis Left hip pain Lumbar spondylosis Cervical spondylosis Chronic neck pain Uncomplicated opioid dependence Chronic renal failure, stage 3a Chronic systolic (congestive) heart failure Closed L1 vertebral fracture Glaucoma (~11/2016) Osteoporosis 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 (02/16/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) History of duodenal ulcer History of gastrointestinal hemorrhage Essential hypertension Idiopathic scoliosis (07/03/11) Hiatal hernia (07/03/11) Chronic back pain Status post nephrectomy Social History marital status: number of children: 2 household members: none lives independently: Yes caregiver/support person: Yes housing: house pets and animals: Yes education level: college occupational status: other 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 Acute on chronic congestive heart failure with reduced left ventricular ejection fraction-continue with vigorous parental diuretics. Unfortunately we do not have patient's Entresto on formulary here, ARB valsartan has been used as a substitute. No change for today continue monitor electrolytes etcetera. Diuretic therapy parenterally while hospitalized. Electrolytes etcetera seems stable 2. Arthralgias/bone pain-likely secondary to the Prolia injection. That has been placed on her intolerance list. Hopefully with time this will improve. Continue to work with skilled therapies. No specific intervention available to the best of my knowledge 3. Paroxysmal atrial fibrillation-continue patient on her amiodarone and metoprolol 4. Hypertension-continue patient's metoprolol plus the substitute valsartan for the Entresto. Blood pressure has been adequately controlled 5. Chronic pain syndrome-patient was chronic back pain from a variety of etiologies. Continue with her chronic use of hydrocodone 6. Disposition-patient seems likely to need group home placement. Unless there is dramatic improvement in the next 24 hours that would allow her to return home, I would plan for group home placement probably tomorrow January 12 Time-Based Coding :: [TOTAL MINUTES] spent with patient and on the chart (including review of chart, obtaining history, exam, reviewing outside data, placing orders, documenting exam and treatment plan, and counseling patient) on [DATE]. Quality VTE Deep Vein Thrombosis/Pulmonary Embolism Present on Admission: No IH PROFEE Sheriff Sergeant Document charge(s): Yes Charge Codes Subsequent inpatient/observation care: [id number]
[2025-01-11 08:00] VITALS: BP 135/66; PULSE 58; RESP 17; TEMP 36.5; O2SAT 95
[2025-01-11] MEDS: ENOXAPARIN 40 MG/0.4 ML SYRINGE SUBCUT (08:08)
[2025-01-11] MEDS: AMIODARONE 200 MG TABLET PO (08:08)
[2025-01-11] MEDS: HYDROCODONE/ACET 5/325 TABLET 1 TAB PO ×3 (08:08→22:13)
[2025-01-11 08:09] VITALS: BP 129/54; PULSE 56
[2025-01-11] MEDS: METOPROLOL ER 50 MG TABLET PO ×2 (08:09→22:12)
[2025-01-11 10:03] VITALS: O2SAT 93
[2025-01-11] MEDS: BISACODYL 5 MG TABLET 10 MG PO (11:49)
--- NOTE | 2025-01-11 13:39 | CM.DPC ---
DCP SNF Cont: Per [facility] admissions, obtained pt's insurance auth for SNF and can accept today if stable for d/c. SW updated MD and he rounded on pt and anticipates likely d/c to SNF tomorrow Wednesday if she remains stable. Updated [facility] and they will continue to follow. PASRR previously completed. Plan: SW to follow for plan of discharge to [facility] tomorrow Wed if medically stable before safe return to [facility]. KATHLEEN Camargo
[2025-01-11 16:00] VITALS: BP 119/56; PULSE 61; RESP 16; TEMP 36.6; O2SAT 94
--- NOTE | 2025-01-11 16:27 | PT.IPTN ---
Current Diagnoses Acute systolic (congestive) heart failure (01/08/25) Physical Therapy Treatment Note M2 PT-IP Current Condition Start: 01/09/25 17:54 Freq: NEEDED Status: Active Protocol: Document 01/09/25 14:20 AB (Rec: 01/09/25 18:12 AB [id number]) Physical Therapy Current Condition Current Condition Evaluation Date 01/09/25 Treatment Diagnosis CHF; LE pain; difficulty in walking Onset Date 01/08/25 M3 PT-IP Subjective Start: 01/09/25 17:54 Freq: NEEDED Status: Active Protocol: Document 01/11/25 16:27 DLM (Rec: 01/11/25 17:54 DLM Desktop) Subjective Physical Therapy Visit Type Type Treatment Note Visit Start Time 15:53 Visit Stop Time 16:27 Notes 26 minutes Number of OIL FIRE SPECIALIST Visits 0 Physical Therapy Visit Comments Patient Comments She is agreeable to participating in Physical Therapy today. She reports her right knee is improving. The pain is the worst with weight bearing and not as bad when moving the knee. Therapy Pain Assessment Pain When Pain Assessed During Mobility Pain Present Pain Present Pain Reported Location Right Leg Intensity 4 Scale Used Numeric (0 - 10) Pain Behaviors Guarding Pain Management Modification of Treatment,Re-positioning Techniques M4 PT-IP Mobility and Gait Start: 01/09/25 17:54 Freq: NEEDED Status: Active Protocol: Document 01/11/25 16:27 DLM (Rec: 01/11/25 17:54 DLM Desktop) PT-Bed Mobility Assessment Supine to Sit Supine to Sit Minimal Assistance,Head of Bed Elevated,Bedrails Sit to Supine Sit to Supine Moderate Assistance,Bedrails Scooting Scooting to Edge of Standby Assistance Bed Scooting Up and Down Moderate Assistance,Maximum Assistance in Bed PT-Transfer Assessment Sit to and From Stand Sit to and from Minimal Assistance,Moderate Assistance,Use of Upper Stand Extremities Equipment Transfer Assistive Gait Belt,Front Wheeled Walker Device Orthotic/Prosthetic No Devices or Brace: Comments Mobility Comments Pt sat edge of bed and stood three times with the FWW. She was not able to progress to taking steps this visit . She stands with decreased weight bearing on right LE but good use of UE's on FWW. The height of the bed was elevated to assist with sit-stand. Pt needs therapist assist to get LE's in/out of bed. Pt able to participate in scooting up in bed with bed rails, knee bent and head of bed lowered. Pt needs max assist to laterally scoot when sitting on edge of bed. Gait Assessment Comments Gait Comments unable this visit Stair Climbing Assessment Comments Stair Climbing No stairs at home Comments PT-Balance Assessment Sitting Balance and Reactions Static Sitting Good Balance Ability Dynamic Sitting Good Balance Ability Standing Balance and Reactions Static Standing Fair Balance Ability Device Used FWW M5 PT-IP Objective Assessments Start: 01/09/25 17:54 Freq: NEEDED Status: Active Protocol: Document 01/09/25 14:20 AB (Rec: 01/09/25 18:12 AB [id number]) Orientation Orientation/Cognition Level of Alertness Alert Orientation Name,Place,Situation Language Function Hard of Hearing Ability Safety Awareness Decreased Safety Awareness Memory Description No Deficits Noted Gross Range of Motion Lower Extremity ROM Impairments pt with c/o R knee pain with movement limiting ROM Strength Lower Extremity Strength Assessment Right Impaired Hip 3-/5 Knee 3-/5 Muscle Tone Muscle Tone WNL Yes M6 PT-IP Treatment Start: 01/09/25 17:54 Freq: NEEDED Status: Active Protocol: Document 01/11/25 16:27 DLM (Rec: 01/11/25 17:54 DLM Desktop) Physical Therapy Treatment Exercises Exercises Ankle Pumps,Seated Knee Flexion/Extension Education Education Provided Safety Other Treatments Other Treatment other exercises: seated marching x 10 reps each LE, Performed seated shoulder flexion x 10 reps No increased knee pain with active exercises M7 PT-IP Assessment and Plan Start: 01/09/25 17:54 Freq: NEEDED Status: Active Protocol: Document 01/11/25 16:27 DLM (Rec: 01/11/25 17:54 DLM Desktop) PT Summary Assessment and Plan Summary Impairments Pain,ROM,Strength,Balance,Coordination,Sensation,Tone, Cognition,Bed Mobility,Transfers,Gait,Activity Tolerance Progress Towards Slow Progress due to Medical Issues,Slow Progress due Goals to Activity Tolerance Assessment Summary Fadumo was able to show slow but good progress with her mobility today. She reports continued pain in right knee with weight bearing but it is improving. She was able to stand at the edge of the bed with FWW with one person assist. She could not progress to taking steps for transfers nor gait. Pt returned to bed to rest after activity and positioned for comfort. Continue to recommend SNF rehab to assist with her functional recovery including gait for household distances. Goals Bed Mobility Goal Standby Assistance Transfer Goal Minimal Assistance,Front Wheeled Walker Gait Goal Minimal Assistance,Front Wheel Walker Gait Distance 50 Other Goals improve bed mobility, transfers, ambulation using 4WW ~ 150 ft SBA Days to Meet Goals 10 Frequency of Treatment Frequency Of Once a Day Treatment Treatment Plan Physical Therapy Bed Mobility Training,Transfer Training,Gait Training, Treatment Plan Therapeutic Exercise,Balance Retraining,Discharge Planning,Hot or Cold Pack,Neuromuscular Re-ed, Coordination Retraining Precautions Other Precautions falls, O2 sat Recommendations To Nursing Amount of Assist Mechanical Lift Needed Discharge Recommendations PT Discharge SNF Rehab Recommendations Transportation Needs Wheelchair/Cabulance,Stretcher/Ambulance at Discharge - PT assist 1-2
[2025-01-11 22:45] VITALS: BP 122/55; PULSE 58
[2025-01-12] VITALS: BP 107/51; PULSE 62; RESP 18; TEMP 36.1; O2SAT 92
--- NOTE | 2025-01-12 07:41 | PM.DS.IH.1 ---
History of Present Illness History of Present Illness Date Patient Seen: 01/12/25 Time Patient Seen: 07:41 Chief complaint: body aches, bilateral leg numbness Narrative: 84-year-old female who he was in her normal state of health it seems until she received Prolia injection on the 05 of January. With that she had began to have bilateral lower extremity pain but also bilateral lower extremity edema swelling. She had became unable to really to ambulate because of pain. Much of the pain resolved but her right knee he was still so painful that is she finds it very difficult to walk with that. She really denies any dyspnea or shortness for breath whatsoever but did note that her lower extremities were becoming swollen Evaluated in the ER found to have some element of acute on chronic congestive heart failure, as well as significant right knee pain felt to be secondary to the Prolia She was given IV furosemide and admitted for further evaluation ER labs mostly unremarkable. No DVT. Chest x-ray demonstrates probable pulmonary edema Discharge Providers Provider Date of admission: 01/08/25 21:37 Discharge Date: 01/12/25 Primary care physician: Charles Castaneda MD Consults: 01/08/25 21:44 Consult to Discharge Planning Routine Comment: Consult to Occupational Therapy Evaluate & Treat Comment: Physician Instructions: Evaluate and treat Consult to Physical Therapy Evaluate & Treat Comment: Physician Instructions: Evaluate and Treat Discharge provider: Charles Castaneda MD Summary Hospital Course Discharge Diagnosis: 1. Diffuse arthralgias secondary to drug effect 2. Drug side effects to Prolia 3. Acute on chronic congestive heart failure with reduced ejection fraction 4. Hypoxia 5. Chronic renal failure stage 3 a 6. Paroxysmal atrial fibrillation 7. Uncomplicated opioid dependence 8. Stress-induced cardiomyopathy 9. Essential hypertension 10. Chronic back pain 11. Chronic neck pain 12. Osteoporosis 13. Chronic Sergey lesions Hospital Course: As above patient was admitted to the hospital with inability to walk secondary to her bone pain. She was also found to be hypoxic despite lack of symptoms and he was felt to have an element of acute congestive heart failure Her arthralgias were treated conservatively and did seem to improve somewhat during her hospitalization with skilled therapies and time Her heart failure he was aggressively treated with parental diuretics and patient had an excellent diuresis. Oxygen requirement only minimally improved however. She will continue on higher dose oral diuretic therapy upon discharge Her other medical problems were stable during this hospitalization. She will need continued 24/7 assistance and some degree of skilled therapy rehabilitation to be able to return home. Therefore she will be [facility] same. She will need to continue on oxygen therapy as well Status at Discharge Cognitive/behavioral status at discharge: at baseline, oriented Functional status at discharge: uses cane/walker Overall status at discharge: patient is progressing back to baseline Time Spent with Patient Time spent: Greater than 30 minutes Exam Vital Signs (past 8 hours): - 01/12/25 00:00 Temperature 96.9 F L Pulse Rate 62 Respiratory Rate 18 Blood Pressure 107/51 L Pulse Oximetry 92 Oxygen Flow Rate 2 Fraction of Inspired Oxygen 24 SaO2/FiO2 Ratio 387 Oxygen Delivery Method Nasal Cannula Oxygen Flow Rate 2 Objective Labs 01/09/25 04:30 01/11/25 05:03 [facility] Medical History Paroxysmal atrial fibrillation Cellulitis Left hip pain Lumbar spondylosis Cervical spondylosis Chronic neck pain Uncomplicated opioid dependence Chronic renal failure, stage 3a Chronic systolic (congestive) heart failure Closed L1 vertebral fracture Glaucoma (~11/2016) Osteoporosis 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) History of duodenal ulcer History of gastrointestinal hemorrhage Essential hypertension Idiopathic scoliosis (07/03/11) Hiatal hernia (07/03/11) Chronic back pain Status post nephrectomy Social History marital status: number of children: 2 household members: none lives independently: Yes caregiver/support person: Yes housing: house pets and animals: Yes education level: college occupational status: other 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 and Healthcare Consult as needed: Dental, Hearing, Mental health, Podiatry and Vision Discharge orders & Medications Prescriptions: Continued vitamin E 400 unit Capsule 400 unit PO DAILY Qty: 0 metoprolol succinate 50 mg tablet extended release 24 hr 50 mg PO BID Qty: 180 3RF omeprazole 40 mg capsule,delayed release(DR/EC) 40 mg PO QDAY Qty: 90 3RF Entresto 49-51 mg tablet 1 tab PO BID (DME) Disabled Parking Permit Qty: 1 0RF Rx Instructions: Patient qualifies for disabled parking as per the attached form. ferrous sulfate [Iron (ferrous sulfate)] 325 mg (65 mg iron) tablet 325 mg PO DAILY amiodarone 200 mg tablet 200 mg PO DAILY Qty: 90 3RF hydrocodone-acetaminophen 5-325 mg tablet 1 tab PO Q4H MDD 3 tabs PRN (Reason: pain) Qty: 30 0RF Changed furosemide 40 mg tablet 40 mg PO BID Qty: 90 3RF Rx Instructions: One dose in am, one at noon Discontinued Prolia 60 mg/mL syringe 60 mg SUBCUT .every 6 months Follow up/Referrals: Charles Castaneda MD [Primary Care Provider, Internal Medicine] Discharge Health Status Multidrug resistant organism: No MDRO Precautions: [place] Diet/Activity/Treatments Diet: Diet as Tolerated and Low-sodium Liquid consistency: Normal/Thin Food texture: Regular Oxygen: 1-2 liters/minute via nasal cannula, maintain O2 saturation 91+% [facility] Reason for rehabilitation: Recovery r/t decondition Rehab type: Physical therapy and Occupational therapy Visit Report/Discharge Packet Stand Alone Forms: Patient Portal/API Discharge Data Primary Care Provider: Charles Castaneda Quality VTE Deep Vein Thrombosis/Pulmonary Embolism Present on Admission: No IH PROFEE Charge Codes Discharge inpatient/observation: 43040
[2025-01-12 08:00] VITALS: BP 128/53; PULSE 67; RESP 17; TEMP 36.2; O2SAT 97
[2025-01-12 09:04] VITALS: BP 129/53; PULSE 84
[2025-01-12] MEDS: METOPROLOL ER 50 MG TABLET PO (09:04)
[2025-01-12] MEDS: PANTOPRAZOLE DR 40 MG TABLET PO (09:04)
[2025-01-12] MEDS: AMIODARONE 200 MG TABLET PO (09:04)
[2025-01-12] MEDS: ENOXAPARIN 40 MG/0.4 ML SYRINGE SUBCUT (09:04)
[2025-01-12] MEDS: HYDROCODONE/ACET 5/325 TABLET 1 TAB PO ×2 (09:05→12:39)
[2025-01-12 12:00] VITALS: BP 130/53; PULSE 66; RESP 17; TEMP 36.6; O2SAT 95
--- NOTE | 2025-01-12 14:55 | PC.NURSE ---
Patient is A&OX4 this a.m. VSS, afebrile. Initially trialed on and 02 sats were 78-82 %. MD Castaneda at bedside evaluating the patient this a.m. and medically cleared her for discharge to SNF for rehab.She is placed back on 2L nc. She tolerates breakfast and lunch well and is agreeable to plan of care to discharge this afternoon to [facility]. Bruce is informed of discharge. Transporter arrived at 1335 and patient is lifted with ana to w/. She is escorted with transporter at approximately 1350 this afternoon. Report called to Jenn at [facility].
--- NOTE | 2025-01-12 16:29 | CM.DPNOTE ---
DC Note [facility] [place], pickling grader arranged for 1230. [employer] delivery driver assistant bringing a portable oxygen tank. Patient remains agreeable to plan. DC summary, signed med list w/printed Rx along with PASRR emailed to Yola TINOCO. RN to do nurse to nurse report. SANDIP
== END 2025-01-12 12:50 | DRG 291 ==
LOC: ED 21:37 → AC 21:38
PROVIDERS: Student in an Organized Health Care Education/Training Program; Admitting Provider Family Medicine; Emergency Provider Emergency Medicine; PCP Internal Medicine; Referring Provider Emergency Medicine; Visit Provider Internal Medicine
DX: I13.0 Hypertensive heart and chronic kidney disease with heart failure and stage 1 through stage 4 chronic kidney disease, or unspecified chronic kidney disease (principal); I50.23 Acute on chronic systolic (congestive) heart failure; F11.20 Opioid dependence, uncomplicated; T50.995A Adverse effect of other drugs, medicaments and biological substances, initial encounter; I48.0 Paroxysmal atrial fibrillation; G89.4 Chronic pain syndrome; M81.0 Age-related osteoporosis without current pathological fracture; R09.02 Hypoxemia; N18.31 Chronic kidney disease, stage 3a; M25.50 Pain in unspecified joint; M54.9 Dorsalgia, unspecified; M54.2 Cervicalgia; K25.7 Chronic gastric ulcer without hemorrhage or perforation; F17.200 Nicotine dependence, unspecified, uncomplicated; Z66 Do not resuscitate
CPT/HCPCS: 36415; 71045; 80048; 80053; 83605; 83690; 83735; 83880; 84145; 84484; 85025; 85610; 85651; 85730; 86140; 87040; 87154; 93041; 93970; 94760; 96361; 96374; 97110; 97162; 97166; 97530; 97535; 99223; 99233; 99239; 99285; J1650; J1938

== ENCOUNTER 2025-02-26 08:13 | Inpatient (IN) | payer MEDICARE, SELFPAY ==
[2025-02-19 10:46] VITALS: BMI 28.4
[2025-02-26] VITALS (22 sets, daily range): BP systolic 118–174; BP diastolic 56–78; PULSE 56–74; RESP 16–34; TEMP 35.6–36.7; O2SAT 87–99; BMI 28.6; BMI 27.3
--- NOTE | 2025-02-26 08:17 | DI.RAD.S_ITS ---
PROCEDURE: XR CHEST 1V INDICATIONS: Shortness of breath TECHNIQUE: One view of the chest was acquired. COMPARISON: [facility], CR, XR CHEST 1V, 01/08/2025, 20:44. [facility], CR, XR CHEST 1V, 05/15/2024, 6:34. FINDINGS: Surgical changes and devices: None. Lungs and pleura: Low lung volumes. Dense retrocardiac opacity Mediastinum: Mediastinal contours appear normal. Heart size is enlarged. Bones and chest wall: No suspicious bony lesions. Overlying soft tissues appear unremarkable. IMPRESSION: Low lung volumes with a dense retrocardiac opacity, which could represent infection or aspiration. Dictated by: Jean Lantigua M.D. on 02/26/2025 at 8:47 Approved by: Jean Lantigua M.D. on 02/26/2025 at 8:48
--- NOTE | 2025-02-26 08:19 | ED.SOB ---
HPI - SOB/Dyspnea General Chief Complaint: Shortness of Breath/Dyspnea Stated Complaint: weakness, hypoxia Time Seen by Provider: 02/26/25 08:19 History of Present Illness HPI Narrative: 84-year-old female history of AFib status post Zio patch 07/18 not on anticoagulation, chronic combined systolic diastolic heart failure left ventricular ejection fraction 45-50% with grade 2 diastolic dysfunction, takotsubo cardiomyopathy, left bundle branch block, hypertension, history of L sided nephrectomy 12 years ago recently discharged from hospital for CHF exacerbation x1 week approximately sent to [facility] for another 5 weeks presents via EMS today for increased shortness of breath, found to be in the high 70s oxygen room air. In fact EMS reported they were at the house yesterday but she refused EMS transport wear the oxygen was in the 80s. She was placed on 4 L at 96% prior to arrival. Patient denies active chest pain, cough, increased leg pain or leg swelling or weight gain. Other than what is stated 14 point review of system is negative. Related Data Home Medications ?Medication ?Instructions ?Recorded ?Confirmed vitamin E 268 mg (400 unit) capsule 400 unit PO DAILY ##0 07/08/11 02/19/25 ferrous sulfate 325 mg (65 mg 325 mg PO DAILY 10/13/18 02/19/25 iron) tablet (Iron (ferrous sulfate)) sacubitril 49 mg-valsartan 51 mg 1 tab PO BID 01/04/24 02/19/25 tablet (Entresto) Previous Rx's ?Medication ?Instructions ?Recorded Disabled Parking Permit #1 ea 01/04/24 metoprolol succinate 50 mg 50 mg PO BID #180 tabs 06/05/24 tablet,extended release 24 hr amiodarone 200 mg tablet 200 mg PO DAILY #90 tabs 06/15/24 omeprazole 40 mg capsule,delayed 40 mg PO QDAY #90 caps 09/12/24 release furosemide 40 mg tablet 40 mg PO BID #90 tabs 01/12/25 hydrocodone 5 mg-acetaminophen 325 1 tab PO Q4H PRN pain #30 tabs 01/12/25 mg tablet alendronate 70 mg tablet 70 mg PO QWEEK #12 tabs 02/19/25 Allergies Allergy/AdvReac Type Severity Reaction Status Date / Time denosumab (From [employer]) AdvReac Severe Muscle Pain Verified 02/26/25 08:34 duloxetine AdvReac Intermediate Drowsy Verified 02/26/25 08:34 morphine AdvReac Intermediate mental Verified 02/26/25 08:34 status changes Review of Systems Review of Systems ROS Unobtainable: All systems reviewed & are unremarkable except as noted in HPI and below Patient History Medical History Paroxysmal atrial fibrillation Cellulitis Left hip pain Lumbar spondylosis Cervical spondylosis Chronic neck pain Uncomplicated opioid dependence Chronic renal failure, stage 3a Chronic systolic (congestive) heart failure Closed L1 vertebral fracture Glaucoma (~11/2016) Osteoporosis 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) History of duodenal ulcer History of gastrointestinal hemorrhage Essential hypertension Idiopathic scoliosis (07/03/11) Hiatal hernia (07/03/11) Chronic back pain Status post nephrectomy Social History marital status: number of children: 2 household members: none lives independently: Yes caregiver/support person: Yes housing: house pets and animals: Yes education level: college occupational status: other 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 Well-developed patient, in mild distress. HEAD: Atraumatic. Normocephalic. EYES: Pupils equal round and reactive. Extraocular motions intact. No scleral icterus. No injection or drainage. ENT: Nose without bleeding, purulent drainage. Throat without erythema, tonsillar hypertrophy or exudate. Airway patent. NECK: Trachea midline. Non tender CARDIOVASCULAR: Regular rate and rhythm without murmurs, gallops, or rubs. RESPIRATORY: Decreased breath sounds bilaterally with faint crackles at the bases GASTROINTESTINAL: Abdomen soft, non-tender, nondistended. EXTREMITIES: No edema or joint tenderness. BACK: Nontender without deformity or crepitance. No flank tenderness. NEURO: AOx3. SKIN: No rash or erythema of visible areas Initial Vital Signs Initial Vital Signs: Vital Signs Temperature 98.0 F 02/26/25 08:18 Pulse Rate 68 02/26/25 08:18 Respiratory Rate 16 02/26/25 08:18 Blood Pressure 149/67 H 02/26/25 08:18 Pulse Oximetry 91 02/26/25 08:18 Oxygen Delivery Method Nasal Cannula 02/26/25 08:18 Oxygen Flow Rate 3 02/26/25 08:18 Course Orders Ordered: ED Orders 02/26/25 08:17 XR chest 1V Stat EKG-12 Lead Stat Measure peak expiratory flow STAT RT Consult Eval and Treat STAT 02/26/25 08:37 Complete Blood Count AUTO DIFF Stat Comprehensive Metabolic Panel Stat Lactate (Lactic Acid) Stat Lipase Stat Magnesium Stat NT-proBNP (BNP-Adult 18+) Stat PTT Partial Thromboplastin Slava Stat Prothrombin Time INR Stat Troponin & CK Cardiac Panel Stat EKG-12 Lead Stat 02/26/25 08:39 Covid-19 + FLU A/B + RSV - PCR Stat Procalcitonin Stat 02/26/25 08:43 Blood Culture Stat 02/26/25 09:06 CT angio chest PE protocol Stat Discontinued Medications Albuterol (Albuterol 2.5 Mg/3 Ml Neb (Adult)) 2.5 mg INH NOW ONE Stop: 02/26/25 08:33 Last Admin: 02/26/25 08:35 Dose: 2.5 mg Documented By: BARBY Aspirin (Aspirin 81 Mg Chew Tab) 324 mg PO NOW ONE Stop: 02/26/25 08:37 Vital Signs Vital signs: Vital Signs - 8 hr 02/26/25 08:18 02/26/25 08:20 02/26/25 08:30 Temperature 98.0 F Pulse Rate 68 65 Respiratory Rate 16 Blood Pressure 149/67 H 153/69 H Pulse Oximetry 91 96 Oxygen Delivery Method Nasal Cannula Oxygen Flow Rate 3 Fraction of Inspired Oxygen 02/26/25 08:30 02/26/25 08:39 Temperature Pulse Rate 73 61 Respiratory Rate 34 H 16 Blood Pressure Pulse Oximetry 98 96 Oxygen Delivery Method Nasal Cannula Oxygen Flow Rate 2 Fraction of Inspired Oxygen 28 MDM - SOB/Dyspnea Imaging Data Chest x-ray: Radiologist's Impression: [address] [address] XRay Report Signed Patient: Fadumo Ny MR#: [id number] : 1940 Acct:[id number] Age/Sex: 84 / F Date of Service: 02/26/25 Loc: ED Accession Number: [id number] Procedure: XR chest 1V Ordering Provider: Charles López D.O. PROCEDURE: XR CHEST 1V INDICATIONS: Shortness of breath TECHNIQUE: One view of the chest was acquired. COMPARISON: [facility], , XR CHEST 1V, 01/08/2025, 20:44. [facility], XR CHEST 1V, 05/15/2024, 6:34. FINDINGS: Surgical changes and devices: None. Lungs and pleura: Low lung volumes. Dense retrocardiac opacity Mediastinum: Mediastinal contours appear normal. Heart size is enlarged. Bones and chest wall: No suspicious bony lesions. Overlying soft tissues appear unremarkable. IMPRESSION: Low lung volumes with a dense retrocardiac opacity, which could represent infection or aspiration. CT scan - chest: Radiologist's Impression: [place] [address] CT Scan Report Signed Patient: Fadumo Ny MR#: [id number] : 1940 Acct:[id number] Age/Sex: 84 / F Date of Service: 02/26/25 Loc: ED Accession Number: [id number] Procedure: CT angio chest PE protocol Ordering Provider: Charles López D.O. PROCEDURE: CT ANGIO CHEST PE PROTOCOL INDICATIONS: sob low 02 TECHNIQUE: After the administration of intravenous contrast, 2 mm thick sections acquired from the pulmonary apices to the posterior costophrenic angles. 3-dimensional maximum intensity projection (MIP) coronal and sagittal reformats were then acquired through the thorax. For radiation dose reduction, the following was used: automated exposure control, adjustment of mA and/or kV according to patient size. COMPARISON: [facility], , XR CHEST 1V, 02/26/2025, 8:25. FINDINGS: Image quality: Diagnostic. Pulmonary arteries: Pulmonary arteries are normal in size, and demonstrate no intraluminal filling defects to suggest central pulmonary embolism. Lower Neck: No enlarged lymph nodes. 1.6 x 1.3 centimeter lesion along the posterior, inferior margin of the left thyroid lobe (series 6, image 30). Thyroid: No thyroid nodules which require sonographic follow up, per consensus guidelines. Axillae: No enlarged lymph nodes. Chest Wall: Unremarkable. Bones: Severe convex right scoliosis. Chronic compression deformities of the T8, T9, T7, T6 vertebral bodies. Osteoporosis. Lungs and Pleura: Low lung volumes. Left basilar atelectasis. No consolidation or effusions. Heart: Heart size is enlarged. No pericardial effusion. Thoracic Vessels: No aortic aneurysm. Mediastinum and Juliann: No enlarged lymph nodes. Esophagus: No wall thickening. Large hiatal hernia, containing the stomach. Upper Abdomen: Visualized upper abdomen solid organs and bowel loops appear normal. IMPRESSION: No pulmonary embolus. Large hiatal hernia, containing the stomach. This corresponds to the dense retrocardiac opacity seen on comparison x-ray. No acute cardiothoracic findings to explain the patient's shortness of breath. 1.6 x 1.3 centimeter lesion along the posterior, inferior margin of the left thyroid lobe. 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 Correlate with appropriate labs and consider nonemergent thyroid ultrasound for complete characterization. Osteoporosis with chronic midthoracic compression deformities. Dictated by: Jean Lantigua M.D. on 02/26/2025 at 9:48 Approved by: Jean Lantigua M.D. on 02/26/2025 at 9:52 ECG Data Interpretation: Afib HR 66 WV 178 QRS [address]-t wave change Unchaged from 05/10/24 [facility] Narrative Medical decision making narrative: Vital signs, nurse triage note, medication list, previous ER visits, and all imaging studies reviewed. CTA showed no PE large heart hiatal hernia. 1.6 x 1.3 cm lesion on the posterior inferior margin of the left thyroid lobe findings are suspicious for parathyroid adenoma. Osteoporosis with chronic midthoracic compression deformities. Potassium 5.6 , BUN 23, creatinine 0.83 T bili 1.5 AST 53 BNP 25400 troponin negative procalcitonin 0.063 lactate 1.3. Patient given Lasix 40 mg IV. Two sets troponin normal. Case discussed with Dr. Charles Castaneda PCP and hospitalist was graciously accepted the patient for inpatient admission. Differential diagnosis STEMI NSTEMI unstable angina CHF pneumonia COVID flu RSV. Patient currently 92% on 2L NC 02. Discharge Plan Departure Patient Disposition: Admitted As Inpatient Clinical Impression: CHF (congestive heart failure) Qualifiers: Heart failure type: combined systolic and diastolic Heart failure chronicity: acute on chronic Qualified Code(s): I50.43 - Acute on chronic combined systolic (congestive) and diastolic (congestive) heart failure
--- NOTE | 2025-02-26 08:21 | EKG_ITS ---
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
[2025-02-26] MEDS: ALBUTEROL 2.5 MG/3 ML NEB (ADULT) INH (08:35)
--- NOTE | 2025-02-26 09:06 | DI.CT.S_ITS ---
PROCEDURE: CT ANGIO CHEST PE PROTOCOL INDICATIONS: sob low 02 TECHNIQUE: After the administration of intravenous contrast, 2 mm thick sections acquired from the pulmonary apices to the posterior costophrenic angles. 3-dimensional maximum intensity projection (MIP) coronal and sagittal reformats were then acquired through the thorax. For radiation dose reduction, the following was used: automated exposure control, adjustment of mA and/or kV according to patient size. COMPARISON: [facility], CR, XR CHEST 1V, 02/26/2025, 8:25. FINDINGS: Image quality: Diagnostic. Pulmonary arteries: Pulmonary arteries are normal in size, and demonstrate no intraluminal filling defects to suggest central pulmonary embolism. Lower Neck: No enlarged lymph nodes. 1.6 x 1.3 centimeter lesion along the posterior, inferior margin of the left thyroid lobe (series 6, image 30). Thyroid: No thyroid nodules which require sonographic follow up, per consensus guidelines. Axillae: No enlarged lymph nodes. Chest Wall: Unremarkable. Bones: Severe convex right scoliosis. Chronic compression deformities of the T8, T9, T7, T6 vertebral bodies. Osteoporosis. Lungs and Pleura: Low lung volumes. Left basilar atelectasis. No consolidation or effusions. Heart: Heart size is enlarged. No pericardial effusion. Thoracic Vessels: No aortic aneurysm. Mediastinum and Juliann: No enlarged lymph nodes. Esophagus: No wall thickening. Large hiatal hernia, containing the stomach. Upper Abdomen: Visualized upper abdomen solid organs and bowel loops appear normal. IMPRESSION: No pulmonary embolus. Large hiatal hernia, containing the stomach. This corresponds to the dense retrocardiac opacity seen on comparison x-ray. No acute cardiothoracic findings to explain the patient's shortness of breath. 1.6 x 1.3 centimeter lesion along the posterior, inferior margin of the left thyroid lobe. 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 Correlate with appropriate labs and consider nonemergent thyroid ultrasound for complete characterization. Osteoporosis with chronic midthoracic compression deformities. Dictated by: Jean Lantigua M.D. on 02/26/2025 at 9:48 Approved by: Jean Lantigua M.D. on 02/26/2025 at 9:52
[2025-02-26 09:24] LABS: Add Manual Diff / Slide Review NO; Hematocrit 38.1 % (36-46); Hemoglobin 11.9 g/dL (12.0-16.0); Lymphocytes Absolute Auto 700 /uL (1100-4500); Mean Corpuscular HGB Conc 31.1 % (30-36); Mean Corpuscular Hemoglobin 32.0 PG (26-34); Mean Corpuscular Volume 102.9 fL (80-100); Platelet Count 214 X10^3/uL (150-400)
--- NOTE | 2025-02-26 09:29 | PC.NURSE ---
Assumed cares of pt at this time. Pt lying back in gurney. Speaking in full sentences. Denies feeling SOB. Discussed plan of care, understands.
[2025-02-26 09:31] LABS: INR 1.0 (0.9-1.3); Prothrombin Time 11.7 SECONDS (9.4-12.5)
[2025-02-26 09:34] LABS: PTT Partial Thromboplastin Tim 27 SECONDS (25.1-36.5)
[2025-02-26 09:35] LABS: Lactate (Lactic Acid) 1.3 mmol/L (0.7-2.1)
[2025-02-26 09:37] LABS: Alanine Aminotransferase 29 IU/L (<35); Albumin 4.1 g/dL (3.5-5.0); Albumin Globulin Ratio 1.0 (1.0-2.8); Alkaline Phosphatase 76 U/L (38-126); Blood Urea Nitrogen 23 mg/dL (7-17); Calcium 8.2 mg/dL (8.4-10.2); Carbon Dioxide 29 mmol/L (22-32); Chloride 107 mmol/L (98-107); Creatine Kinase 58 U/L (30-135); Estimated Glomerular Filt Rate > 60 mL/min (>60); Globulin 4.0 g/dL (1.7-4.1); Glucose 85 mg/dL (70-99); Lipase 20 U/L (23-300); Magnesium 2.4 mg/dL (1.6-2.3); Sodium 142 mmol/L (137-145); Total Protein 8.1 g/dL (6.3-8.2)
[2025-02-26 09:39] LABS: HEMOLYSIS 251 (0-50); Potassium 5.6 mmol/L (3.4-5.1)
[2025-02-26 09:47] LABS: NT-proBNP (BNP-Adult 18+) 13500 pg/mL (<450); Troponin I 0.022 ng/mL (0.01-0.034)
[2025-02-26 09:53] LABS: Procalcitonin 0.063 ng/mL (<0.5)
--- NOTE | 2025-02-26 11:00 | PC.NURSE ---
Pt on 2 L per NC, sats dip to 88%, changed to mask sats improve to 97%
[2025-02-26 11:04] LABS: Base Excess VBG 0.5 mmol/L (0-4); HCO3 VBG 29 mmol/L (24-28); Oxygen Saturation VBG 63 % (70-75); PCO2 VBG 59.9 mmHg (45-50); PO2 VBG 37 mmHg (35-45); Total CO2 VBG 28 mmol/L (24-29); pH VBG 7.29 (7.33-7.43)
[2025-02-26] MEDS: FUROSEMIDE 40 MG/4 ML VIAL IV (11:06)
[2025-02-26 11:38] LABS: Troponin I < 0.012 ng/mL (0.01-0.034)
--- NOTE | 2025-02-26 11:52 | PM.HP.IH.1 ---
History of Present Illness History of Present Illness Date Patient Seen: 02/26/25 Time Patient Seen: 11:52 Chief complaint: weakness, hypoxia Narrative: 84-year-old female admitted via emergency department with congestive heart failure She was hospitalized recently after suffering a reaction to Prolia with significant arthralgias etcetera. She was also felt to have a mild acute on chronic exacerbation of congestive heart failure which was treated with diuretics. When seen in the clinic last week she was modestly hypoxic at rest and certainly with activity and home oxygen therapy was in process of being arranged. She apparently has further declined with increasing shortness of breath especially with activity increasing weakness etcetera and was transported via EMS to the ED where she was found to be in acute on chronic congestive heart failure with an elevated BNP and mild hypoxia. Further evaluation was essentially unremarkable Patient reports falling yesterday at home, EMS was summoned but she declined to come to the hospital at that time. 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) History of duodenal ulcer History of gastrointestinal hemorrhage Essential hypertension Idiopathic scoliosis (07/03/11) Hiatal hernia (07/03/11) Chronic back pain Status post nephrectomy Social History marital status: number of children: 2 household members: none lives independently: Yes caregiver/support person: Yes housing: house pets and animals: Yes education level: college occupational status: other 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 kerry/yazidi: [employer] travel history: other leisure activities: reading and other Smoking Status: Former smoker Tobacco: How many years used: 8 Smokeless tobacco user: other quit status: quit date established second hand exposure: No alcohol intake: current substance use type: does not use Meds Home Medications and Allergies Home Medications ?Medication ?Instructions ?Recorded ?Confirmed ?Type vitamin E 268 mg (400 unit) capsule 400 unit PO DAILY ##0 07/08/11 02/19/25 History ferrous sulfate 325 mg (65 mg 325 mg PO DAILY 10/13/18 02/19/25 History iron) tablet (Iron (ferrous sulfate)) Disabled Parking Permit #1 ea 01/04/24 02/19/25 Rx sacubitril 49 mg-valsartan 51 mg 1 tab PO BID 01/04/24 02/19/25 History tablet (Entresto) metoprolol succinate 50 mg 50 mg PO BID #180 tabs 06/05/24 02/19/25 Rx tablet,extended release 24 hr amiodarone 200 mg tablet 200 mg PO DAILY #90 tabs 06/15/24 02/19/25 Rx omeprazole 40 mg capsule,delayed 40 mg PO QDAY #90 caps 09/12/24 02/19/25 Rx release furosemide 40 mg tablet 40 mg PO BID #90 tabs 01/12/25 02/19/25 Rx hydrocodone 5 mg-acetaminophen 325 1 tab PO Q4H PRN pain #30 tabs 01/12/25 02/19/25 Rx mg tablet alendronate 70 mg tablet 70 mg PO QWEEK #12 tabs 02/19/25 02/19/25 Rx Allergies Allergy/AdvReac Type Severity Reaction Status Date / Time denosumab (From [employer]) AdvReac Severe Muscle Pain Verified 02/26/25 08:34 duloxetine AdvReac Intermediate Drowsy Verified 02/26/25 08:34 morphine AdvReac Intermediate mental Verified 02/26/25 08:34 status changes Review of Systems Review of Systems ROS: Yes All systems reviewed with the patient and are negative except as otherwise documented Exam Vital Signs (past 8 hours): - 02/26/25 08:18 02/26/25 08:20 02/26/25 08:30 Temperature 98.0 F Pulse Rate 68 65 Respiratory Rate 16 Blood Pressure 149/67 H 153/69 H Pulse Oximetry 91 96 Oxygen Delivery Method Nasal Cannula Oxygen Flow Rate 3 Fraction of Inspired Oxygen 02/26/25 08:30 02/26/25 08:39 Temperature Pulse Rate 73 61 Respiratory Rate 34 H 16 Blood Pressure Pulse Oximetry 98 96 Oxygen Delivery Method Nasal Cannula Oxygen Flow Rate 2 Fraction of Inspired Oxygen 28 Fraction of Inspired Oxygen 28 SaO2/FiO2 Ratio 342 Oxygen Delivery Method Nasal Cannula Oxygen Flow Rate 2 Narrative Exam Narrative: Elderly female lying on a hospital gurney in the emergency department in no obvious distress HEENT-unremarkable Lungs-scattered crackles at the bases with good breath sounds no wheezes Heart-regular rate and rhythm no murmur Abdomen-benign Extremities-trace edema at the ankles bilaterally Neuro-alert and oriented x3 recognizes me by voice only, no focal neurologic findings present, gait not tested Objective Labs 02/26/25 09:10 02/26/25 09:00 Labs: Laboratory Results - last 24 hr 02/26/25 02/26/25 02/26/25 09:00 09:10 10:45 WBC 5.4 RBC 3.70 L Hgb 11.9 L Hct 38.1 MCV 102.9 H MCH 32.0 MCHC 31.1 RDW 16.3 H Plt Count 214 Neut % (Auto) 77.3 H Lymph % (Auto) 12.5 L Stephens % (Auto) 8.2 Eos % (Auto) 1.1 L Baso % (Auto) 0.9 Neut # (Auto) 4200 Lymph # (Auto) 700 L Stephens # (Auto) 400 Eos # (Auto) 100 Baso # (Auto) 0 PT 11.7 INR 1.0 APTT 27 VBG pH VBG pCO2 VBG pO2 VBG HCO3 VBG Total CO2 VBG O2 Saturation VBG Base Excess Sodium 142 Potassium 5.6 H Chloride 107 Carbon Dioxide 29 BUN 23 H Creatinine 0.83 Estimated GFR > 60 BUN/Creatinine Ratio 27.7 H Glucose 85 Lactate 1.3 Calcium 8.2 L Magnesium 2.4 H Total Bilirubin 1.5 H AST 53 H ALT 29 Alkaline Phosphatase 76 Total Creatine Kinase 58 Troponin I 0.022 < 0.012 NT-Pro-B Natriuret Pep 44908 H Total Protein 8.1 Albumin 4.1 Globulin 4.0 Albumin/Globulin Ratio 1.0 Lipase 20 L Procalcitonin 0.063 02/26/25 11:00 WBC RBC Hgb Hct MCV MCH MCHC RDW Plt Count Neut % (Auto) Lymph % (Auto) Stephens % (Auto) Eos % (Auto) Baso % (Auto) Neut # (Auto) Lymph # (Auto) Stephens # (Auto) Eos # (Auto) Baso # (Auto) PT INR APTT VBG pH 7.29 L VBG pCO2 59.9 H VBG pO2 37 VBG HCO3 29 H VBG Total CO2 28 VBG O2 Saturation 63 L VBG Base Excess 0.5 Sodium Potassium Chloride Carbon Dioxide BUN Creatinine Estimated GFR BUN/Creatinine Ratio Glucose Lactate Calcium Magnesium Total Bilirubin AST ALT Alkaline Phosphatase Total Creatine Kinase Troponin I NT-Pro-B Natriuret Pep Total Protein Albumin Globulin Albumin/Globulin Ratio Lipase Procalcitonin Assessment & Plan Assessment & Plan narrative: 1. Acute on chronic congestive heart failure with reduced left ventricular function-vigorous IV diuresis with oxygen replacement therapy as necessary for her hypoxia. Follow electrolytes and renal function with serial testing 2. Acute respiratory failure with hypoxia-continue with oxygen replacement therapy and treat underlying issue which is her congestive heart failure 3. Chronic renal failure stage 3 a-will follow her renal function electrolytes with serial testing while undergoing diuresis 4. Stress-induced cardiomyopathy-likely etiology for her congestive heart failure. Probably would benefit from repeat echocardiography at this time since it has been almost a year since her last echo 5. Chronic neck and back pain with chronic scoliosis and spondylosis-continue patient's usual chronic hydrocodone 6. Weakness-skilled therapies will be evaluating her for rehab potential 7. Code status-patient requests no code in the event of a sudden cardiac or respiratory arrest 8. VTE prophylaxis-chemo prophylaxis with Lovenox appropriate and ordered as well as SCDs Time-Based Coding :: [TOTAL MINUTES] spent with patient and on the chart (including review of chart, obtaining history, exam, reviewing outside data, placing orders, documenting exam and treatment plan, and counseling patient) on [DATE]. PROFEE Director Of Programming Document charge(s): Yes Charge Codes Initial inpatient/observation care: 35134
[2025-02-26 12:39] LABS: Culture Indicated Urine Specimen Cultured
--- NOTE | 2025-02-26 12:45 | DI.ECHO.S_ITS ---
[place] [facility] : : [id number] : [address] [address] : : [id number] : : Phone: [phone] Echocardiogram Report + + :Name: MICHELLE HAIDER Study Date: 02/27/2025 Height: 65 in : :[facility] ReadingLocation: Weight: 172 lb : : Gender: Female BSA: 1.9 m2 : :: 1940 Age: 84 yrs BP: 139/60 mmHg: :Reason For Study: CONGESTIVE HEART FAILURE : :Ordering Physician: RAHEEL, : :HATTIE Henley Performed By: Simona Parker : :Referring: HATTIE PICKERING : + + Interpretation Summary 1) Normal left ventricular thickness, size, and systolic function (EF 55-60%). 2) The interventricular septum is flattened, consistent with a right ventricular pressure/volume condition. 3) Moderately to severely enlarged right ventricle with mildly reduced function. 3) There is mild to moderate tricuspid regurgitation. 4) The right ventricular systolic pressure is estimated to be at least 66 mmHg based on an estimated right atrial pressure of 3 mm Hg. 5) Compared to the Echo done 05/11/2024, RVSP has increased from at least 49mmHg to 66mmHg on this study. Procedure: A two-dimensional transthoracic echocardiogram with color flow and Doppler was performed. The study quality was technically adequate. Comparison is made with the echocardiogram of 05/11/2024. The patient was in sinus rhythm with heart rates between 68-82 bpm during the exam. Left Ventricle: The left ventricle is normal in size and wall thickness. The ejection fraction is estimated to be 55-60%. The interventricular septum is flattened, consistent with a right ventricular pressure/volume condition. Grade II diastolic dysfunction with elevated left atrial pressure. Right Ventricle: The right ventricle is moderate to severely dilated. Right ventricular systolic function is mildly reduced. Atria: The left atrium is moderately dilated. Right atrial size is normal. There is no Doppler evidence for an interatrial shunt. Mitral Valve: The mitral valve leaflets appear moderately thickened. There is mild mitral annular calcification. There is mild mitral regurgitation. Aortic Valve: The aortic valve is trileaflet. There is mild aortic valve sclerosis. The aortic valve opens well. There is no aortic valve stenosis. No aortic regurgitation is present. Tricuspid Valve: Tricuspid leaflets are thickened. The tricuspid annulus is dilated. There is mild to moderate tricuspid regurgitation. The right ventricular systolic pressure is estimated to be at least 66 mmHg based on an estimated right atrial pressure of 3 mm Hg. There is severe pulmonary hypertension. Pulmonic Valve: The pulmonic valve is not well seen, but is grossly normal. There is mild pulmonic regurgitation. Great Vessels: The aortic root is normal size. The ascending aorta is normal in size. The IVC is of normal diameter and collapses greater than 50% with a sniff. This suggests a low right atrial pressure of 3 mm Hg. Pericardium/ Pleura There is no pericardial effusion. There is no pleural effusion. MMode/2D Measurements & Calculations LVIDd: 4.4 cm LVOT diam: 2.0 cm LVIDs: 2.7 cm Ao root diam: 3.1 cm FS: 37.9 % asc Aorta Diam: 3.5 cm IVSd: 0.89 cm Ao Arch Diam (Prox Trans): 3.2 cm LVPWd: 0.71 cm LV triana. diameter/BSA (cm/m^2): 2.4 LV sys. diameter/BSA (cm/m^2): 1.5 LA A2 area: 21.7 cm2 RA long axis: 5.5 cm LA A4 area: 18.9 cm2 RA area: 18.5 cm2 LA length (vol): 5.3 cm RA vol: 53.0 ml LA vol: 65.6 ml RA : 28.6 ml/m2 LA vol index: 35.4 ml/m2 IVC diam: 1.9 cm RVD1 (basal): 5.5 cm RVD2 (mid): 4.9 cm TAPSE: 1.9 cm Doppler Measurements & Calculations Ao V2 max: 179.0 cm/sec LVOT Max Nile: 102.6 cm/sec Ao V2 mean: 123.6 cm/sec LV V1 max P.2 mmHg Ao max P.8 mmHg LV V1 VTI: 17.7 cm Ao mean P.8 mmHg ELIUD(I,D): 1.6 cm2 Ao V2 VTI: 32.1 cm ELIUD(V,D): 1.7 cm2 sev ratio: 0.55 ELIUD indexed to BSA (cm^2/m^2): 0.89 MV E max nile: 101.3 cm/sec TR max nile: 395.8 cm/sec MV A max nile: 101.3 cm/sec TR max P.7 mmHg MV E/A: 1.0 PA V2 max: 121.9 cm/sec Med Peak E' Nile: 4.8 cm/sec PA V2 mean: 75.1 cm/sec E/E' med: 21.2 PA mean P.6 mmHg Lat Peak E' Nile: 8.5 cm/sec E/E' lat: 12.0 E/e' average: 16.6 MV dec time: 0.22 sec SV(LVOT): 52.8 ml Reading Physician:10:31 AM
[2025-02-26] MEDS: HYDROCODONE/ACET 5/325 TABLET 1 TAB PO ×2 (13:01→18:52)
[2025-02-26 13:15] LABS: Influenza A - CEPHEID Flu A NEGATIVE (NEGATIVE); Influenza B - CEPHEID Flu B NEGATIVE (NEGATIVE)
[2025-02-26 13:16] LABS: COVID-19 CEPHEID 4-PLEX PCR Negative (Negative)
--- NOTE | 2025-02-26 14:12 | PT.IIE ---
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 Pt reports she is setting up 15/02 caregiver assistance there and does not wish to return to [facility]. She has not yet received her new scooter. Activities of Daily Defer to OT Living and IADL's Prior Functional Pt cannot don socks on eval and states she wears Level (Other details slippers, she states she is awaiting O2 ) Social History Household Members none Living Arrangements Custodial Facility Number of Stairs To Multiple floors and accessible entrance at [place] Enter/Railing? Square Home Environment High Toilet,Walk in Shower,Built-In Shower Seat Home Equipment Four Wheel Walker,Hand Held Shower,Lift Recliner,Grab Bars Near Toilet,Grab Bars In Shower Employment Status Retired Additional Social Pt sleeps in a lift recliner History Comment M2 PT-IP Current Condition Start: 02/26/25 13:26 Freq: NEEDED Status: Active Protocol: Document 02/26/25 13:31 MB (Rec: 02/26/25 14:12 MB Desktop) Physical Therapy Current Condition Current Condition Evaluation Date 02/26/25 Treatment Diagnosis CHF exacerbation and fall, first fall per her report M3 PT-IP Subjective Start: 02/26/25 13:26 Freq: NEEDED Status: Active Protocol: Document 02/26/25 13:31 MB (Rec: 02/26/25 14:12 MB Desktop) Therapy Pain Assessment Pain When Pain Assessed At Rest Pain Present Pain Present Denied Pain M4 PT-IP Mobility and Gait Start: 02/26/25 13:26 Freq: NEEDED Status: Active Protocol: Document 02/26/25 13:31 MB (Rec: 02/26/25 14:12 MB Desktop) PT-Bed Mobility Assessment Rolling Level of Assist Contact Guard Assistance Supine to Sit Supine to Sit Contact Guard Assistance,1 Person Assistance,Head of Bed Elevated,Bedrails Scooting Scooting to Edge of Contact Guard Assistance Bed PT-Transfer Assessment Sit to and From Stand Sit to and from Minimal Assistance,1 Person Assistance,Use of Upper Stand Extremities Equipment Transfer Assistive Gait Belt,Front Wheeled Walker Device Transfers Transfer Destination Chair Transfer Technique Scooting steps Transfer Ability Level of Assist Minimal Assistance,1 Person Assistance,Use of Upper Extremities Comments Mobility Comments O2 sats on RA are in the 90s at rest in supine and with bed mobility. Once EOB, sats decrease to 79% and 2L O2 re-donned and sats return to 90% and remain 90-94% with mobility Gait Assessment Gait Gait Assistance Minimum Assistance Required: Distance (Feet) 1 Assistive Devices Assistive Device Gait Belt,Front Wheeled Walker Gait Deviations General Gait Pattern Antalgic,Decreased Stride Length,Decreased Feet Clearance,Flexed Trunk,Step-to Gait Factors Limiting Gait Function Factors Limiting Abnormal Tonal Influences,Decreased Activity Tolerance, Gait Function Decreased Strength,Limited Range of Motion,Poor Balance ,Poor Safety Awareness Comments Gait Comments Pt's B LEs are red and scaly and shiny, decreased B ankle movement and right greater than left foot appear fixed in flat neutral DF position. Left greater than right knee edema and muscle wasting LEs, limited B knee extension, pt with kyphoscoliosis and posture is flexed with steps, scoots feet along the floor, slow and effortful mobility PT-Balance Assessment Sitting Balance and Reactions Static Sitting Good Balance Ability Dynamic Sitting Fair Balance Ability Standing Balance and Reactions Static Standing Poor Balance Ability Dynamic Standing Poor Balance Ability Device Used RW M5 PT-IP Objective Assessments Start: 02/26/25 13:26 Freq: NEEDED Status: Active Protocol: Document 02/26/25 13:31 MB (Rec: 02/26/25 14:12 MB Desktop) Orientation Orientation/Cognition Level of Alertness Alert Orientation Name,Birthday,Place,Situation Language Function No Deficits Noted Ability Safety Awareness Decreased Safety Awareness Memory Description No Deficits Noted Gross Range of Motion Upper Extremity ROM Impairments Defer to OT Lower Extremity ROM Assessment Bilaterally Impaired Impairments See comments under gait Strength Lower Extremity Strength Assessment Bilaterally Impaired Comments Strength Comments See comments under gait. MMT deferred LEs d/t skin appearance, weakness all joints Coordination Assessment Gross Coordination Gross Coordination Impaired Sensation Assessment Comments Sensation Comments NT Muscle Tone Muscle Tone WNL No M6 PT-IP Treatment Start: 02/26/25 13:26 Freq: NEEDED Status: Active Protocol: Document 02/26/25 13:31 MB (Rec: 02/26/25 14:12 MB Desktop) Physical Therapy Treatment Education Education Provided Safety M7 PT-IP Assessment and Plan Start: 02/26/25 13:26 Freq: NEEDED Status: Active Protocol: Document 02/26/25 13:31 MB (Rec: 02/26/25 14:12 MB Desktop) PT Summary Assessment and Plan Potential Rehabilitation Fair Potential Status of Condition Evolving at Evaluation Summary Impairments ROM,Strength,Balance,Coordination,Tone,Bed Mobility, Transfers,Gait,Activity Tolerance Assessment Summary Pt is an 84 y/o female adm with CHF exacerbation and fall. Pt states that she lives in living at [facility] and wishes to return there with 15/[address] She has a daughter and grand-daughter nearby. Pt reports recent month long adm to [facility] after adm in December. She has not yet gotten a functional scooter, uses her rollator and sleeps in a lift chair. She reports just having the one fall. Pt requires min A for transfer and minimal scooting steps today with RW. She requests RW for home use. Her O2 sats drop on RA and so 2L O2 re-donned. Pt states she is awaiting O2 for home use. Recommend 15/02 assistance and PT at d/c. PT can issue walker here. Goals Transfer Goal Standby Assistance,Front Wheeled Walker Gait Goal Standby Assistance,Front Wheel Walker Gait Distance 35 Other Goals Pt sleeps in lift chair at home, no bed mobility goal. Days to Meet Goals 5 Frequency of Treatment Frequency Of Once a Day Treatment Treatment Plan Physical Therapy Bed Mobility Training,Transfer Training,Gait Training, Treatment Plan Therapeutic Exercise,Balance Retraining,Discharge Planning,Hot or Cold Pack,Neuromuscular Re-ed, Coordination Retraining,Manual Therapy Recommendations To Nursing Amount of Assist 1 Person Assist Needed Discharge Recommendations PT Discharge Home with 15/02 Assist Available,Home Health Recommendations Equipment Needed for RW Home Before Discharge Transportation Needs Wheelchair/Cabulance at Discharge - PT assist x1
--- NOTE | 2025-02-26 14:14 | PT.IIE ---
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 Pt reports she is setting up 15/02 caregiver assistance there and does not wish to return to [facility]. She has not yet received her new scooter. Activities of Daily Defer to OT Living and IADL's Prior Functional Pt cannot don socks on eval and states she wears Level (Other details slippers, she states she is awaiting O2 ) Social History Household Members none Living Arrangements Usp Facility Number of Stairs To Multiple floors and accessible entrance at [place] Enter/[facility]? Square Home Environment High Toilet,Walk in Shower,Built-In Shower Seat Home Equipment Four Wheel Walker,Hand Held Shower,Lift Recliner,Grab Bars Near Toilet,Grab Bars In Shower Employment Status Retired Additional Social Pt sleeps in a lift recliner History Comment M2 PT-IP Current Condition Start: 02/26/25 13:26 Freq: NEEDED Status: Active Protocol: Document 02/26/25 13:31 MB (Rec: 02/26/25 14:12 MB Desktop) Physical Therapy Current Condition Current Condition Evaluation Date 02/26/25 Treatment Diagnosis CHF exacerbation and fall, first fall per her report M3 PT-IP Subjective Start: 02/26/25 13:26 Freq: NEEDED Status: Active Protocol: Document 02/26/25 13:31 MB (Rec: 02/26/25 14:12 MB Desktop) Subjective Physical Therapy Visit Type Type Initial Evaluation Visit Start Time 13:31 Visit Stop Time 13:56 Number of BEAN SNAPPER Visits 0 Physical Therapy Visit Comments Patient Comments Pt is agreeable to PT. Therapy Pain Assessment Pain When Pain Assessed At Rest Pain Present Pain Present Denied Pain M4 PT-IP Mobility and Gait Start: 02/26/25 13:26 Freq: NEEDED Status: Active Protocol: Document 02/26/25 13:31 MB (Rec: 02/26/25 14:12 MB Desktop) PT-Bed Mobility Assessment Rolling Level of Assist Contact Guard Assistance Supine to Sit Supine to Sit Contact Guard Assistance,1 Person Assistance,Head of Bed Elevated,Bedrails Scooting Scooting to Edge of Contact Guard Assistance Bed PT-Transfer Assessment Sit to and From Stand Sit to and from Minimal Assistance,1 Person Assistance,Use of Upper Stand Extremities Equipment Transfer Assistive Gait Belt,Front Wheeled Walker Device Transfers Transfer Destination Chair Transfer Technique Scooting steps Transfer Ability Level of Assist Minimal Assistance,1 Person Assistance,Use of Upper Extremities Comments Mobility Comments O2 sats on RA are in the 90s at rest in supine and with bed mobility. Once EOB, sats decrease to 79% and 2L O2 re-donned and sats return to 90% and remain 90-94% with mobility Gait Assessment Gait Gait Assistance Minimum Assistance Required: Distance (Feet) 1 Assistive Devices Assistive Device Gait Belt,Front Wheeled Walker Gait Deviations General Gait Pattern Antalgic,Decreased Stride Length,Decreased Feet Clearance,Flexed Trunk,Step-to Gait Factors Limiting Gait Function Factors Limiting Abnormal Tonal Influences,Decreased Activity Tolerance, Gait Function Decreased Strength,Limited Range of Motion,Poor Balance ,Poor Safety Awareness Comments Gait Comments Pt's B LEs are red and scaly and shiny, decreased B ankle movement and right greater than left foot appear fixed in flat neutral DF position. Left greater than right knee edema and muscle wasting LEs, limited B knee extension, pt with kyphoscoliosis and posture is flexed with steps, scoots feet along the floor, slow and effortful mobility PT-Balance Assessment Sitting Balance and Reactions Static Sitting Good Balance Ability Dynamic Sitting Fair Balance Ability Standing Balance and Reactions Static Standing Poor Balance Ability Dynamic Standing Poor Balance Ability Device Used RW M5 PT-IP Objective Assessments Start: 02/26/25 13:26 Freq: NEEDED Status: Active Protocol: Document 02/26/25 13:31 MB (Rec: 02/26/25 14:12 MB Desktop) Orientation Orientation/Cognition Level of Alertness Alert Orientation Name,Birthday,Place,Situation Language Function No Deficits Noted Ability Safety Awareness Decreased Safety Awareness Memory Description No Deficits Noted Gross Range of Motion Upper Extremity ROM Impairments Defer to OT Lower Extremity ROM Assessment Bilaterally Impaired Impairments See comments under gait Strength Lower Extremity Strength Assessment Bilaterally Impaired Comments Strength Comments See comments under gait. MMT deferred LEs d/t skin appearance, weakness all joints Coordination Assessment Gross Coordination Gross Coordination Impaired Sensation Assessment Comments Sensation Comments NT Muscle Tone Muscle Tone WNL No M6 PT-IP Treatment Start: 02/26/25 13:26 Freq: NEEDED Status: Active Protocol: Document 02/26/25 13:31 MB (Rec: 02/26/25 14:12 MB Desktop) Physical Therapy Treatment Education Education Provided Safety M7 PT-IP Assessment and Plan Start: 02/26/25 13:26 Freq: NEEDED Status: Active Protocol: Document 02/26/25 13:31 MB (Rec: 02/26/25 14:12 MB Desktop) PT Summary Assessment and Plan Potential Rehabilitation Fair Potential Status of Condition Evolving at Evaluation Summary Impairments ROM,Strength,Balance,Coordination,Tone,Bed Mobility, Transfers,Gait,Activity Tolerance Assessment Summary Pt is an 84 y/o female adm with CHF exacerbation and fall. Pt states that she lives in living at [facility] and wishes to return there with 24/7 slice plug cutter operator helper. She has a daughter and grand-daughter nearby. Pt reports recent month long adm to [facility] after adm in December. She has not yet gotten a functional scooter, uses her rollator and sleeps in a lift chair. She reports just having the one fall. Pt requires min A for transfer and minimal scooting steps today with RW. She requests RW for home use. Her O2 sats drop on RA and so 2L O2 re-donned. Pt states she is awaiting O2 for home use. Recommend 24/7 assistance and PT at d/c. PT can issue walker here. Goals Transfer Goal Standby Assistance,Front Wheeled Walker Gait Goal Standby Assistance,Front Wheel Walker Gait Distance 35 Other Goals Pt sleeps in lift chair at home, no bed mobility goal. Days to Meet Goals 5 Frequency of Treatment Frequency Of Once a Day Treatment Treatment Plan Physical Therapy Bed Mobility Training,Transfer Training,Gait Training, Treatment Plan Therapeutic Exercise,Balance Retraining,Discharge Planning,Hot or Cold Pack,Neuromuscular Re-ed, Coordination Retraining,Manual Therapy Recommendations To Nursing Amount of Assist 1 Person Assist Needed Discharge Recommendations PT Discharge Home with 15/02 Assist Available,Home Health Recommendations Equipment Needed for RW Home Before Discharge Transportation Needs Wheelchair/Cabulance at Discharge - PT assist x1
--- NOTE | 2025-02-26 14:30 | OT.IP.EVAL ---
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 She recently ordered a scooter but had to return it and is waiting on another one. Activities of Daily Pt reports that she makes her breakfast and lunch and Living and IADL's manages her medications. She was mod I/I with her BADLs. Pt plans on hiring a 24/7 assistance on d/c from hospital. Social History Household Members none Living Arrangements Assisted Living Home Environment Standard Height Toilet,Walk in Shower Home Equipment Four Wheel Walker,Raised Toilet Seat w/Armrests,Shower Seat with Backrest,Hand Held Shower,Coffee Machine Technician,Sock Aid, Lift Recliner,Grab Bars In Shower Additional Social Pt sleeps in her lift recliner. History Comment M1 PT/OT-IP Prior Functional Status Start: 02/26/25 13:31 Freq: NEEDED Status: Active Protocol: Document 02/26/25 13:31 MB (Rec: 02/26/25 14:12 MB Desktop) Medical Review Prior Functional Status Medical History Yes Reviewed Communication Unsure baseline diet, communicates needs Mobility and Gait Mod I with rollator, states that she might like a RW if she d/cs back to [facility], [place]. Pt reports she is setting up 24/7 caregiver assistance there and does not wish to return to [facility]. She has not yet received her new scooter. Activities of Daily Defer to OT Living and IADL's Prior Functional Pt cannot don socks on eval and states she wears Level (Other details slippers, she states she is awaiting O2 ) Social History Household Members none Living Arrangements [facility] Facility Number of Stairs To Multiple floors and accessible entrance at Tr Enter/Railing? Square Home Environment High Toilet,Walk in Shower,Built-In Shower Seat Home Equipment Four Wheel Walker,Hand Held Shower,Lift Recliner,Grab Bars Near Toilet,Grab Bars In Shower Employment Status Retired Additional Social Pt sleeps in a lift recliner History Comment M2 OT-IP Current Condition Start: 02/26/25 13:31 Freq: Status: Active Protocol: Document 02/26/25 14:02 ARELY (Rec: 02/26/25 14:30 ARELY Desktop) Occupational Therapy Current Condition Current Condition Evaluation Date 02/26/25 Treatment Diagnosis CHF exacerbation, fall, generalized weakness Diagnosis Onset Date 02/26/25 M3 OT- IP Subjective and Pain Start: 02/26/25 13:31 Freq: Status: Active Protocol: Document 02/26/25 14:02 ARELY (Rec: 02/26/25 14:30 ARELY Desktop) OT- Subjective Occupational Therapy Visit Type Type Initial Evaluation Visit Start Time 13:31 Visit Stop Time 14:00 Occupational Therapy Visit Comments Patient Comments Pt stated she was tired but willing to participate in OT eval. Patient/Caregiver To go home to [facility] with 24/7 hired assistance. Goals OT Pain Assessment Pain When Pain Assessed At Rest Pain Present Pain Present Denied Pain M4 OT- IP ADL's Start: 02/26/25 13:31 Freq: Status: Active Protocol: Document 02/26/25 14:02 ARELY (Rec: 02/26/25 14:30 ARELY Desktop) OT [id number] General Evaluation Self-Feeding Ability Independent OT ADL-Grooming General Evaluation Grooming Ability Standby Assistance Comments OT Grooming Comments Pt washes her face and hands and brushes her hair on setup of items. OT ADL-Oral Care Comments Oral Care Comments pt declines as she wants to eat her snack OT ADL-Dressing General Eval Lower Body Dressing Total Assistance Ability Areas Needing Underpants/Brief,Socks Assistance Comments OT Dressing Comments Pt says she does not wear socks at home. Pt has a correctional manager and sock aid at home. Pt unable to assist without AD today. OT ADL-Toileting Comments OT Toileting not observed Comments OT ADL-Bathing Comments OT Bathing Comments sponge bath more appropriate at this time M5 OT- IP IADL's Start: 02/26/25 13:31 Freq: Status: Active Protocol: Document 02/26/25 14:02 ARELY (Rec: 02/26/25 14:30 [facility] Desktop) OT-Instrumental Activities of Daily Living Home Safety Awareness Awareness of Need Good Awareness for Assistance at Home Ability to Problem Able to Problem Solve Solve Emergency Situations Medication Management Medication No Deficits Identified Management Money Management Money Management No Deficits Identified Meal Preparation Meal Preparation Caregiver Provides Assist Associate Professor Of Violin Associate Professor Of Violin Caregiver Provides Assist Driving Driving Caregiver Provides Assist M6 OT- IP Functional Cognition Start: 02/26/25 13:31 Freq: Status: Active Protocol: Document 02/26/25 14:02 ARELY (Rec: 02/26/25 14:30 [facility] Cognitive Factors Limiting Selfcare Function Cognitive Ability Level of Alertness Alert Patient Orientation Name,Place,Situation Attention Span Capable of Focused Attention,Capable of Sustained Ability Attention Ability to Follow Able to Follow One Step Commands,Able to Follow Multi- Commands Step Commands Memory Description No Deficits Noted Safety Awareness No Deficits Noted Problem Solving No deficits Noted Ability Executive Function No Deficits Noted Ability Abstract Thinking No Deficits Noted Ability OT- Vision and Hearing OT- Hearing Assessment OT- Hearing WFL Assessment OT- Vision Assessment Visual Acuity Glasses For Reading Visual Attentiveness WF M7 OT- IP Mobility and Balance Start: 02/26/25 13:31 Freq: Status: Active Protocol: Document 02/26/25 14:02 ARELY (Rec: 02/26/25 14:30 [facility] Desktop) OT- Bed Mobility Assessment Supine to Sit Supine to Sit Assist Contact Guard Assistance,1 Person Assistance,Head of Bed Elevated,Bedrails Scooting Scooting to Edge of Contact Guard Assistance,1 Person Assistance,Head of Bed Bed Elevated,Bedrails OT-Transfer Assessment Sit to and From Stand Sit to and from Minimal Assistance,1 Person Assistance,Use of Upper Stand Extremities Transfers Transfer Ability Minimal Assistance,1 Person Assistance,Use of Upper Extremities Technique Transfer Destination Chair Transfer Technique Stand Step Pivot Devices Transfer Assistive Gait Belt,Front Wheeled Walker Devices Comments Mobility Comments Pt requires vcs for hand placement and safety. Pt needs encouragement to attempt scooting back in chair. Pts O2 sat dropped on RA so @L O2 re-donned. Pt states awaiting O2 for home use. OT- Balance Assessment Sitting Balance and Reactions Static Sitting Fair Balance Ability Dynamic Sitting Fair Balance Ability Standing Balance and Reactions Static Standing Fair Balance Ability Dynamic Standing Fair Balance Ability M8 OT- IP Objective Assessments Start: 02/26/25 13:31 Freq: Status: Active Protocol: Document 02/26/25 14:02 ARELY (Rec: 02/26/25 14:30 [facility] Desktop) OT Gross Range of Motion Upper Extremity Range of Motion Assessment Bilaterally Impaired ROM Impairments Pt's R shoulder ~120 active scaption, R ~90 active scaption, otherwise WFL OT Strength Upper Extremity Strength Shoulder 3+ Elbow 4 Hand 4 Hand Ebd Special Education Teacher Strength Hand Dominance Left OT- Coordination Assessment Upper Extremity Finger to Nose Test Within Functional Limits OT-Muscle Tone Assessment Muscle Tone WNL Yes M9 OT- IP Assessment and Plan Start: 02/26/25 13:31 Freq: Status: Active Protocol: Document 02/26/25 14:02 ARELY (Rec: 02/26/25 14:30 [facility] Desktop) OT Summary Assessment and Plan Potential Rehabilitation Good Potential Analytic Complexity Moderate at Evaluation Summary OT Impairments Range of Motion,Strength,Balance,Functional Mobility, Grooming,Dressing,Toileting,Bathing,Toilet Transfers, Shower Transfers,Activity Tolerance Progress Towards Progressing Toward Goals Goals Assessment Summary Pt is 84 yo F who reports being d/c home to [facility], [place] about a week ago from SNF (for previous CHF exacerbation). She was leaving her bathroom when she reports sliding down the wall and landing on the floor. Pt reports that she was MOD I with her BADLs and functional mobility prior to fall. She plans on hiring 24/7 assistance on d/c home. Pt presents with decreased activity tolerance, decreased BADLs, and decreased functional t/fs. Skilled OT services are appropriate to address these deficits and promote return toward PLOF. OT recommends Home with 24/7 care and HH. Pt left up in chair with all needs met and in reach, nsg notified. Goals Grooming Goal Independent Dressing Goal Independent,Coffee Machine Technician,Sock Aid Toileting Goal Independent Bathing Goal Independent,Grab Bars,Hand Held Shower Sprayer Toilet Transfer Goal Independent,Grab Bars Shower Transfer Goal Independent,Walk-in Shower,Grab Bars Days to Meet Goals 15 Frequency of Treatment Other frequency 5x/wk Treatment Plan OT Treatment Plan ADL Training,Functional Cognition Training,Functional Mobility,Patient/Family Education,Discharge Planning Discharge Recommendations OT Discharge Home with 24/ Assist Available,Home Health Recommendations Transportation Needs Wheelchair/Cabulance at Discharge
[2025-02-26] MEDS: FUROSEMIDE 80 MG in SODIUM CHLORIDE 0.9% 50 ML 116 MG IV (18:36)
--- NOTE | 2025-02-26 18:59 | PC.NURSE ---
Admit Note Patient arrived to room 223 from ER via stretcher, slider board used for transfer. Alert and oriented x3. Oriented to room and to call light/bed/tv controls. Bed alarm on for safety. Clothing and cell phone at bedside. Declines to lock up any valuables. On 2L NC with SpO2 in the mid-90s, SR on tele. Crackles to bilateral lung nelson, short of breath with any exertion. [place] administered for pt report of back pain, see emar, reports effective. Milian catheter in place and draining cloudy yellow urine. Call light within reach.
[2025-02-27 02:00] VITALS: BP 139/60; PULSE 70; RESP 16; TEMP 36.6; O2SAT 97
[2025-02-27] MEDS: FUROSEMIDE 80 MG in SODIUM CHLORIDE 0.9% 50 ML 116 MG IV ×3 (02:47→18:33)
[2025-02-27 05:33] LABS: Blood Urea Nitrogen 19 mg/dL (7-17); Calcium 7.6 mg/dL (8.4-10.2); Carbon Dioxide 35 mmol/L (22-32); Chloride 103 mmol/L (98-107); Estimated Glomerular Filt Rate 58 mL/min (>60); Glucose 92 mg/dL (70-99); HEMOLYSIS < 15 (0-50); Magnesium 2.1 mg/dL (1.6-2.3); Potassium 4.2 mmol/L (3.4-5.1); Sodium 142 mmol/L (137-145)
[2025-02-27 06:00] VITALS: BP 148/58; PULSE 71; RESP 18; TEMP 35.9; O2SAT 94
[2025-02-27] MEDS: PANTOPRAZOLE DR 40 MG TABLET PO (06:31)
[2025-02-27] MEDS: HYDROCODONE/ACET 5/325 TABLET 1 TAB PO ×2 (06:31→14:32)
--- NOTE | 2025-02-27 07:33 | PM.PN.IH.1 ---
Subjective Subjective Date Patient Seen: 02/27/25 Time Patient Seen: 07:33 Interval history: Uneventful day yesterday after admission via the ED Seen by PT and OT still significant oxygen desaturation with any activity. Patient demonstrates weakness Modest urine output only 3 L or so since admit Oxygen saturation stable at rest remains at 90+% with activity while on oxygen replacement therapy Lab work this morning shows stability with electrolytes and renal function Patient reports feeling better, and reminds me that her home oxygen equipment was/is scheduled to be delivered today Exam Vital Signs (past 8 hours): - 02/27/25 02:00 02/27/25 06:00 Temperature 98 F 96.6 F L Pulse Rate 70 71 Respiratory Rate 16 18 Blood Pressure 139/60 148/58 H Pulse Oximetry 97 94 Fraction of Inspired Oxygen 28 SaO2/FiO2 Ratio 342 Oxygen Delivery Method Nasal Cannula Oxygen Flow Rate 2 Objective Labs 02/26/25 09:10 02/27/25 04:20 Labs: Laboratory Results - last 24 hr 02/26/25 02/26/25 02/26/25 09:00 09:10 10:45 WBC 5.4 RBC 3.70 L Hgb 11.9 L Hct 38.1 MCV 102.9 H MCH 32.0 MCHC 31.1 RDW 16.3 H Plt Count 214 Neut % (Auto) 77.3 H Lymph % (Auto) 12.5 L Kemper % (Auto) 8.2 Eos % (Auto) 1.1 L Baso % (Auto) 0.9 Neut # (Auto) 4200 Lymph # (Auto) 700 L Kemper # (Auto) 400 Eos # (Auto) 100 Baso # (Auto) 0 PT 11.7 INR 1.0 APTT 27 VBG pH VBG pCO2 VBG pO2 VBG HCO3 VBG Total CO2 VBG O2 Saturation VBG Base Excess Sodium 142 Potassium 5.6 H Chloride 107 Carbon Dioxide 29 BUN 23 H Creatinine 0.83 Estimated GFR > 60 BUN/Creatinine Ratio 27.7 H Glucose 85 Lactate 1.3 Calcium 8.2 L Magnesium 2.4 H Total Bilirubin 1.5 H AST 53 H ALT 29 Alkaline Phosphatase 76 Total Creatine Kinase 58 Troponin I 0.022 < 0.012 NT-Pro-B Natriuret Pep 81528 H Total Protein 8.1 Albumin 4.1 Globulin 4.0 Albumin/Globulin Ratio 1.0 Lipase 20 L Procalcitonin 0.063 Urine RBC Urine WBC Ur Squamous Epith Cells Urine Bacteria Ur Culture Indicated? Vol Urine Centrifuged SARS-CoV-2 (PCR) Influenza A (RT-PCR) Influenza B (RT-PCR) RSV (PCR) 02/26/25 02/26/25 02/26/25 11:00 12:00 12:16 WBC RBC Hgb Hct MCV MCH MCHC RDW Plt Count Neut % (Auto) Lymph % (Auto) Kemper % (Auto) Eos % (Auto) Baso % (Auto) Neut # (Auto) Lymph # (Auto) Kemper # (Auto) Eos # (Auto) Baso # (Auto) PT INR APTT VBG pH 7.29 L VBG pCO2 59.9 H VBG pO2 37 VBG HCO3 29 H VBG Total CO2 28 VBG O2 Saturation 63 L VBG Base Excess 0.5 Sodium Potassium Chloride Carbon Dioxide BUN Creatinine Estimated GFR BUN/Creatinine Ratio Glucose Lactate Calcium Magnesium Total Bilirubin AST ALT Alkaline Phosphatase Total Creatine Kinase Troponin I NT-Pro-B Natriuret Pep Total Protein Albumin Globulin Albumin/Globulin Ratio Lipase Procalcitonin Urine RBC 1-5/hpf Urine WBC 1-5/hpf Ur Squamous Epith Cells None seen Urine Bacteria None seen Ur Culture Indicated? Specimen cultured Vol Urine Centrifuged 10ml (spun) SARS-CoV-2 (PCR) Negative Influenza A (RT-PCR) Flu a negative Influenza B (RT-PCR) Flu b negative RSV (PCR) Negative 02/27/25 04:20 WBC RBC Hgb Hct MCV MCH MCHC RDW Plt Count Neut % (Auto) Lymph % (Auto) Kemper % (Auto) Eos % (Auto) Baso % (Auto) Neut # (Auto) Lymph # (Auto) Kemper # (Auto) Eos # (Auto) Baso # (Auto) PT INR APTT VBG pH VBG pCO2 VBG pO2 VBG HCO3 VBG Total CO2 VBG O2 Saturation VBG Base Excess Sodium 142 Potassium 4.2 D Chloride 103 Carbon Dioxide 35 H BUN 19 H Creatinine 0.96 Estimated GFR 58 L BUN/Creatinine Ratio 19.8 Glucose 92 Lactate Calcium 7.6 L Magnesium 2.1 Total Bilirubin AST ALT Alkaline Phosphatase Total Creatine Kinase Troponin I NT-Pro-B Natriuret Pep Total Protein Albumin Globulin Albumin/Globulin Ratio Lipase Procalcitonin Urine RBC Urine WBC Ur Squamous Epith Cells Urine Bacteria Ur Culture Indicated? 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) History of duodenal ulcer History of gastrointestinal hemorrhage Essential hypertension Idiopathic scoliosis (07/03/11) Hiatal hernia (07/03/11) Chronic back pain Status post nephrectomy Social History marital status: number of children: 2 household members: none lives independently: Yes caregiver/support person: Yes housing: house pets and animals: Yes education level: college occupational status: other 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 Acute on chronic congestive heart failure with reduced left ventricular function-continue with IV diuresis 2. Respiratory failure-continue with oxygen replacement therapy. Patient had been set up with home oxygen although I have yet to be delivered to the home. She may well need home oxygen therapy when ready for discharge 3. Chronic renal failure-continue to monitor renal function while undergoing diuresis plan for repeat labs tomorrow 4. Weakness-continue with skilled therapies. Patient does not want to return to intermediate but at this point in time unsafe to return to her previous living environment at [facility]. Hopefully as we treat her congestive heart failure this will improve. Patient is prepared to pay for private caregivers Time-Based Coding :: [TOTAL MINUTES] spent with patient and on the chart (including review of chart, obtaining history, exam, reviewing outside data, placing orders, documenting exam and treatment plan, and counseling patient) on [DATE]. PROFEE Barrel Cap Setter Document charge(s): Yes Charge Codes Subsequent inpatient/observation care: [id number]
[2025-02-27 08:27] VITALS: O2SAT 94
[2025-02-27 08:30] VITALS: BP 104/45; PULSE 72; RESP 16; TEMP 35.9; O2SAT 93
[2025-02-27] MEDS: AMIODARONE 200 MG TABLET PO (08:41)
[2025-02-27] MEDS: ENOXAPARIN 40 MG/0.4 ML SYRINGE SUBCUT (08:41)
[2025-02-27] MEDS: FERROUS SULFATE 325 MG TABLET PO (08:41)
[2025-02-27] MEDS: METOPROLOL ER 50 MG TABLET PO (08:41)
--- NOTE | 2025-02-27 11:45 | PT.IPTN ---
Current Diagnoses Acute on chronic systolic (congestive) heart failure (02/26/25) Physical Therapy Treatment Note M2 PT-IP Current Condition Start: 02/26/25 13:26 Freq: NEEDED Status: Active Protocol: Document 02/26/25 13:31 MB (Rec: 02/26/25 14:12 MB Desktop) Physical Therapy Current Condition Current Condition Evaluation Date 02/26/25 Treatment Diagnosis CHF exacerbation and fall, first fall per her report M3 PT-IP Subjective Start: 02/26/25 13:26 Freq: NEEDED Status: Active Protocol: Document 02/27/25 11:45 AB (Rec: 02/27/25 13:36 AB [id number]) Subjective Physical Therapy Visit Type Type Treatment Note Visit Start Time 11:45 Visit Stop Time 12:15 Number of WINDOWS SUPPORT ENGINEER Visits 0 Physical Therapy Visit Comments Patient Comments agreeable to do PT M4 PT-IP Mobility and Gait Start: 02/26/25 13:26 Freq: NEEDED Status: Active Protocol: Document 02/27/25 11:45 AB (Rec: 02/27/25 13:36 AB [id number]) PT-Bed Mobility Assessment Supine to Sit Supine to Sit Minimal Assistance,Head of Bed Elevated,Bedrails PT-Transfer Assessment Sit to and From Stand Sit to and from Maximum Assistance,1 Person Assistance,Use of Upper Stand Extremities Equipment Transfer Assistive Gait Belt,Front Wheeled Walker Device Orthotic/Prosthetic No Devices or Brace: Transfers Transfer Destination Chair Transfer Technique Stand Step Pivot Transfer Ability Level of Assist Maximum Assistance,1 Person Assistance,Use of Upper Extremities Comments Mobility Comments pt in bed and agreeable to do PT. BP: 98/43 O2 sat with 2L/min O2: 94%. completed supine to sit min A and cues. required increase time to complete. O2 sat: 91-93 %. no c/o dizziness/lightheadedness. sit to stand max A and cues and step transfer to chair using FWW max A and cues. pt rested. agreed to walk. sit to stand max A and cues and ambulated using fWW ~ 8 ft max A and cues. presents with slow unsteady gait. chair follow during walking. O2 sat: 88-90%. BP: 114/ 54 pt agreed to stay up on the chair. positioned pt on the chair. call light and table placed within reach. Gait Assessment Gait Gait Assistance Maximum Assistance,1 Person Assist Required: Distance (Feet) 8 Able to Maintain Yes Weight Bearing Status During Gait Assistive Devices Assistive Device Gait Belt,Front Wheeled Walker Orthotic/Prosthetic No Devices or Brace: Gait Deviations General Gait Pattern Decreased Stride Length,Decreased Feet Clearance,Step- to Gait Factors Limiting Gait Function Factors Limiting Decreased Activity Tolerance,Decreased Strength, Gait Function Difficulty Following Directions,Pain,Poor Balance,Poor Safety Awareness,Respiratory Distress M5 PT-IP Objective Assessments Start: 02/26/25 13:26 Freq: NEEDED Status: Active Protocol: Document 02/26/25 13:31 MB (Rec: 02/26/25 14:12 MB Desktop) Orientation Orientation/Cognition Level of Alertness Alert Orientation Name,Birthday,Place,Situation Language Function No Deficits Noted Ability Safety Awareness Decreased Safety Awareness Memory Description No Deficits Noted Gross Range of Motion Upper Extremity ROM Impairments Defer to OT Lower Extremity ROM Assessment Bilaterally Impaired Impairments See comments under gait Strength Lower Extremity Strength Assessment Bilaterally Impaired Comments Strength Comments See comments under gait. MMT deferred LEs d/t skin appearance, weakness all joints Coordination Assessment Gross Coordination Gross Coordination Impaired Sensation Assessment Comments Sensation Comments NT Muscle Tone Muscle Tone WNL No M6 PT-IP Treatment Start: 02/26/25 13:26 Freq: NEEDED Status: Active Protocol: Document 02/27/25 11:45 AB (Rec: 02/27/25 13:36 AB [id number]) Physical Therapy Treatment Education Education Provided Safety M7 PT-IP Assessment and Plan Start: 02/26/25 13:26 Freq: NEEDED Status: Active Protocol: Document 02/27/25 11:45 AB (Rec: 02/27/25 13:36 AB [id number]) PT Summary Assessment and Plan Potential Rehabilitation Fair Potential Summary Impairments Pain,ROM,Strength,Balance,Coordination,Sensation,Tone, Cognition,Bed Mobility,Transfers,Gait,Activity Tolerance Progress Towards Slow Progress due to Medical Issues,Slow Progress due Goals to Activity Tolerance Assessment Summary pt requiring max a and max cues with mobility. pt requiring max A x 1 with transfers and able to ambulate using FWW ~ 8 ft max A and max cues. pt continues to have decrease activity tolerance with (+) SOB during mobility. pt will need 24/7 assist and will benefit from SNF rehab. will continue to assess progress. Goals Transfer Goal Standby Assistance,Front Wheeled Walker Gait Goal Standby Assistance,Front Wheel Walker Gait Distance 35 Days to Meet Goals 5 Frequency of Treatment Frequency Of Once a Day Treatment Treatment Plan Physical Therapy Bed Mobility Training,Transfer Training,Gait Training, Treatment Plan Therapeutic Exercise,Balance Retraining,Discharge Planning,Hot or Cold Pack,Neuromuscular Re-ed, Coordination Retraining,Manual Therapy Recommendations To Nursing Amount of Assist 1 Person Assist Needed Discharge Recommendations PT Discharge Home with 15/02 Assist Available,Home Health,SNF Rehab, Recommendations Home vs SNF Equipment Needed for FWW Home Before Discharge Transportation Needs Wheelchair/Cabulance at Discharge - PT assist 1
[2025-02-27 12:00] VITALS: BP 94/45; PULSE 66; O2SAT 98
--- NOTE | 2025-02-27 15:55 | OT.IP.TRT ---
Current Diagnoses Acute on chronic systolic (congestive) heart failure (02/26/25) Occupational Therapy Treatment Note M2 OT-IP Current Condition Start: 02/26/25 13:31 Freq: Status: Active Protocol: Document 02/26/25 14:02 [facility] (Rec: 02/26/25 14:30 [facility] Desktop) Occupational Therapy Current Condition Current Condition Evaluation Date 02/26/25 Treatment Diagnosis CHF exacerbation, fall, generalized weakness Diagnosis Onset Date 02/26/25 M3 OT- IP Subjective and Pain Start: 02/26/25 13:31 Freq: Status: Active Protocol: Document 02/27/25 17:10 [facility] (Rec: 02/27/25 17:20 [facility] Desktop) OT- Subjective Occupational Therapy Visit Type Type Treatment Note Visit Start Time 15:55 Visit Stop Time 16:35 Occupational Therapy Visit Comments Patient Comments Pt agreed to get up to walk and practice with FWW and O2 tubing management needs. Patient/Caregiver TO go home and hire 24/7 assist and have home health. Goals OT Pain Assessment Pain When Pain Assessed During Mobility Pain Present Pain Present Pain Reported Location Bilateral Lower Back Pain Behaviors Facial Grimacing,Holding Area M4 OT- IP ADL's Start: 02/26/25 13:31 Freq: Status: Active Protocol: Document 02/26/25 14:02 [facility] (Rec: 02/26/25 14:30 [facility] Desktop) OT DVW-[place] General Evaluation Self-Feeding Ability Independent OT ADL-Grooming General Evaluation Grooming Ability Standby Assistance Comments OT Grooming Comments Pt washes her face and hands and brushes her hair on setup of items. OT ADL-Oral Care Comments Oral Care Comments pt declines as she wants to eat her snack OT ADL-Dressing General Eval Lower Body Dressing Total Assistance Ability Areas Needing Underpants/Brief,Socks Assistance Comments OT Dressing Comments Pt says she does not wear socks at home. Pt has a tour consultant and sock aid at home. Pt unable to assist without AD today. OT ADL-Toileting Comments OT Toileting not observed Comments OT ADL-Bathing Comments OT Bathing Comments sponge bath more appropriate at this time M5 OT- IP IADL's Start: 02/26/25 13:31 Freq: Status: Active Protocol: Document 02/26/25 14:02 [facility] (Rec: 02/26/25 14:30 [facility]) OT-Instrumental Activities of Daily Living Home Safety Awareness Awareness of Need Good Awareness for Assistance at Home Ability to Problem Able to Problem Solve Solve Emergency Situations Medication Management Medication No Deficits Identified Management Money Management Money Management No Deficits Identified Meal Preparation Meal Preparation Caregiver Provides Assist Advertising Executive Advertising Executive Caregiver Provides Assist Driving Driving Caregiver Provides Assist M6 OT- IP Functional Cognition Start: 02/26/25 13:31 Freq: Status: Active Protocol: Document 02/27/25 17:10 [facility] (Rec: 02/27/25 17:20 [facility] Desktop) Cognitive Factors Limiting Selfcare Function Cognitive Comments Cognitive Assessment Pt needing cues to manage O2 tubing. VC to take her Comments time and breath through her nose. M7 OT- IP Mobility and Balance Start: 02/26/25 13:31 Freq: Status: Active Protocol: Document 02/27/25 17:10 [facility] (Rec: 02/27/25 17:20 [facility] Desktop) OT- Bed Mobility Assessment Supine to Sit Supine to Sit Assist Standby Assistance,Head of Bed Elevated Sit to Supine Sit to Supine Assist Moderate Assistance,1 Person Assistance Scooting Scooting to Edge of Standby Assistance Bed OT-Transfer Assessment Sit to and From Stand Sit to and from Minimal Assistance Stand Transfers Transfer Ability Contact Guard Assistance Technique Transfer Destination Bed Devices Transfer Assistive Gait Belt,Front Wheeled Walker Devices Comments Mobility Comments Increased time to the edge of the bed. CGA to stand and walk in front of the bed by turning around with CGA with FWW and cues to manage the O2 tubing. Pt on 2L and O2 at 92% and when up on her feet drops to 82% and after several minutes up to 91%. Pt insistent on not having O2 while trying to get back to bed and O2 drops to 74% and after a few deep breaths and O2 replaced at 88%. Educated to have her hired caregiver ssist with tubing. In addition pt sleeps in a lift chair. OT- Balance Assessment Sitting Balance and Reactions Static Sitting Good Balance Ability Dynamic Sitting Fair Balance Ability Standing Balance and Reactions Static Standing Fair Balance Ability Dynamic Standing Fair Balance Ability M8 OT- IP Objective Assessments Start: 02/26/25 13:31 Freq: Status: Active Protocol: Document 02/26/25 14:02 [facility] (Rec[facility]/26/25 14:30 [facility] Gross Range of Motion Upper Extremity Range of Motion Assessment Bilaterally Impaired ROM Impairments Pt's R shoulder ~120 active scaption, R ~90 active scaption, otherwise WFL OT Strength Upper Extremity Strength Shoulder 3+ Elbow 4 Hand 4 Hand Parker Strength Hand Dominance Left OT- Coordination Assessment Upper Extremity Finger to Nose Test Within Functional Limits OT-Muscle Tone Assessment Muscle Tone WNL Yes M9 OT- IP Assessment and Plan Start: 02/26/25 13:31 Freq: Status: Active Protocol: Document 02/27/25 17:10 [facility] (Rec: 02/27/25 17:20 [facility] Desktop) OT Summary Assessment and Plan Potential Rehabilitation Good Potential Analytic Complexity Moderate at Evaluation Summary OT Impairments Range of Motion,Strength,Balance,Functional Mobility, Grooming,Dressing,Toileting,Bathing,Toilet Transfers, Shower Transfers,Activity Tolerance Progress Towards Progressing Toward Goals Goals Assessment Summary Pt still has decreased activity tolerance and O2 decreased with exertions on 2L from 93% to 82% when getting up to her feet. Pt would benefit from a BSC as pt states her bathroom is [address] way. Pt looking to get a FWW as well. Pt will need 24/7 assist if going home and will benefit from home health as well. Goals Grooming Goal Independent Dressing Goal Independent,Cuff Folder,Sock Aid Toileting Goal Independent Bathing Goal Independent,Grab Bars,Hand Held Shower Sprayer Toilet Transfer Goal Independent,Grab Bars Shower Transfer Goal Independent,Walk-in Shower,Grab Bars Days to Meet Goals 14 Frequency of Treatment Other frequency 5x/week Treatment Plan OT Treatment Plan ADL Training,Functional Cognition Training,Functional Mobility,Patient/Family Education,Discharge Planning Discharge Recommendations OT Discharge Home with 24/7 Assist Available,Home Health Recommendations Transportation Needs Wheelchair/Cabulance at Discharge
[2025-02-27 20:00] VITALS: BP 104/45; PULSE 70; RESP 18; TEMP 35.7; O2SAT 92
[2025-02-28] VITALS (8 sets, daily range): BP systolic 106–130; BP diastolic 45–57; PULSE 62–82; RESP 18; TEMP 35.8–36.3; O2SAT 94–97
[2025-02-28] MEDS: FUROSEMIDE 80 MG in SODIUM CHLORIDE 0.9% 50 ML 116 MG IV ×3 (02:55→20:40)
[2025-02-28 05:01] LABS: Blood Urea Nitrogen 24 mg/dL (7-17); Calcium 7.5 mg/dL (8.4-10.2); Chloride 97 mmol/L (98-107); Estimated Glomerular Filt Rate 48 mL/min (>60); Glucose 96 mg/dL (70-99); HEMOLYSIS < 15 (0-50); Magnesium 2.0 mg/dL (1.6-2.3); Potassium 4.0 mmol/L (3.4-5.1); Sodium 141 mmol/L (137-145)
[2025-02-28 05:06] LABS: Carbon Dioxide 37 mmol/L (22-32)
[2025-02-28] MEDS: PANTOPRAZOLE DR 40 MG TABLET PO (06:32)
--- NOTE | 2025-02-28 07:52 | P.PN_ITS ---
Subjective Subjective Date Patient Seen: 02/28/25 Time Patient Seen: 07:52 Interval history: Patient with uneventful evening and day yesterday She had about 3 L of urine out Patient seen by skill therapies she still requires a great deal of assistance. Oxygen saturation about 91% with activity on 2 L nasal cannula Exam Vital Signs (past 8 hours): - 02/28/25 04:00 Temperature 97.3 F L Pulse Rate 75 Respiratory Rate 18 Blood Pressure 110/51 L Pulse Oximetry 94 Oxygen Flow Rate 2 Fraction of Inspired Oxygen 28 SaO2/FiO2 Ratio 342 Oxygen Delivery Method Nasal Cannula Oxygen Flow Rate 2 Objective Labs 02/26/25 09:10 03/01/25 05:00 Labs: Laboratory Results - last 24 hr 02/28/25 04:10 Sodium 141 Potassium 4.0 Chloride 97 L Carbon Dioxide 37 H BUN 24 H Creatinine 1.12 H Estimated GFR 48 L BUN/Creatinine Ratio 21.4 Glucose 96 Calcium 7.5 L Magnesium 2.0 PFSH Medical History Paroxysmal atrial fibrillation Cellulitis Left hip pain Lumbar spondylosis Cervical spondylosis Chronic neck pain Uncomplicated opioid dependence Chronic renal failure, stage 3a Chronic systolic (congestive) heart failure Closed L1 vertebral fracture Glaucoma (~11/2016) Osteoporosis 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) History of duodenal ulcer History of gastrointestinal hemorrhage Essential hypertension Idiopathic scoliosis (07/03/11) Hiatal hernia (07/03/11) Chronic back pain Status post nephrectomy Social History marital status: number of children: 2 household members: none lives independently: Yes caregiver/support person: Yes housing: house pets and animals: Yes education level: college occupational status: other 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 Acute on chronic congestive heart failure with reduced left ventricular function-continue with IV diuresis. No changes for today 2. Respiratory failure-continue with oxygen replacement therapy. patient is going to require home oxygen therapy which hopefully has already been delivered 3. Chronic renal failure- lab work demonstrates slight bump in creatinine with concomitant decrease in GFR we will back off a tiny bit on diuretic therapy 4. Weakness-continue with skilled therapies. at this point the plan should be for her to return to [facility] with 24/7 caregivers Time-Based Coding :: [TOTAL MINUTES] spent with patient and on the chart (including review of chart, obtaining history, exam, reviewing outside data, placing orders, documenting exam and treatment plan, and counseling patient) on [DATE]. PROFEE Valet Manager Document charge(s): Yes Charge Codes Subsequent inpatient/observation care: [id number]
--- NOTE | 2025-02-28 08:27 | CM.DANOTE ---
Initial DCP Assessment Visit Note Reviewed EMR and team rounds for pt's medical status and updates. Met with pt at bedside to introduce self and role, pt was found to be alert/oriented, in no distress or SOB at the time of this visit. Pt resides modified independently in her apartment at [facility]. She has a local, supportive dtr, and another dtr out of state. Her dtr will likely transport her home at d/c. Payor: [facility] Medicare Adv PCP: Dr. Castaneda Pt is a 84 kota-old F with a hx of Afib, CHF, presented to the ED via EMS due to SOB, hypoxia, and a fall the day before. She wwas dx with a CHF exacerbation, was started on IV diuretics, and admitted to the floor for further tx/monitoring. She will need a commode and FWW at d/c, as well as Home Health. [facility] [employer] will f/u with sending orders for HH, will contact dtr about obtaining a commode from [employer]. Will continue to monitor for any further evolving needs prior to d/c. Discharge Planning/Care Management Advanced directive, confirm from FAMILY Start: 02/26/25 13:05 Freq: Q24H Status: Complete Protocol: Document 02/26/25 14:05 ELIZABETH (Rec: 02/26/25 14:06 ELIZABETH [id number]) Advance Directive, confirm on record Time 14:06 Person contacted pt Copy received No Document 02/27/25 14:00 ELIZABETH (Rec: 02/27/25 14:09 ELIZABETH [id number]) Advance Directive, confirm on record Time 14:06 Person contacted pt Copy received No Time 14:09 Person contacted pt Copy received No Advanced directive No available on record CM Discharge Assessment Start: 02/26/25 11:59 Freq: Status: Active Protocol: Document 02/28/25 08:15 DPL (Rec: 02/28/25 08:18 DPL [id number]) Discharge Planning Assessment Assigned Discharge KATHLEEN Healy Loan Closer Advance Directives? Yes Advance Directives No on File History Provided By Patient,Medical Record Has Patient been No admitted in last 30 days? Prior Living Assisted Living Arrangements Household Members none Type of Relies on Others transporation used prior to admit Independent with ADL No: modified independent 's Is patient alert and Yes oriented? Needs Assistance Meal Prep,Home Chores / Shopping With Caregiver for No Another DME Already Rented / FWW / Walker,Cane Owned Comment Patient endorses she uses a FWW with wheels at baseline and uses cane when she is out in public at baseline. Patient/Family Home with Home Health Preference Barriers to No Discharge Discharge Plan Assisted Living Facility Transportation Likely local Dtr Phi to transport at d/c. Arrangement Referrals Initiated Home Health If patient plan is Yes home with home health: Has signed face to face form been completed? If patient plan is No SNF: Has PASSR been completed? Medicare Choice List Yes Provided Medicare choice list patient reviewed on electronic tablet with SNF/HH Preference Signature HH Has Agency SNF been Yes contacted Whiteboard Updated Yes in Patient Room with name and ext. # of Associate Account Executive Review Status In Process Please Provide Date 02/28/25 Initial DC Assessment Was Performed
[2025-02-28] MEDS: METOPROLOL ER 50 MG TABLET PO ×2 (08:28→20:47)
[2025-02-28] MEDS: FERROUS SULFATE 325 MG TABLET PO (08:28)
[2025-02-28] MEDS: AMIODARONE 200 MG TABLET PO (08:28)
[2025-02-28] MEDS: ENOXAPARIN 40 MG/0.4 ML SYRINGE SUBCUT (08:29)
[2025-02-28] MEDS: SODIUM CHLORIDE 0.9% FLUSH 10 ML IV ×2 (08:30→20:41)
[2025-02-28] MEDS: HYDROCODONE/ACET 5/325 TABLET 2 TAB PO (09:36)
--- NOTE | 2025-02-28 09:46 | PC.NURSE ---
Pt alert and oriented. Sitting up for breakfast. Right lower loose rotten tooth was hanging by a small root. Patient pulled tooth out. Tooth in specimen cup in patient belongings bag. Patient states, They are rotten. I have an appt to get implants this month,lets save the tooth for the doctor. Call light in reach.
--- NOTE | 2025-02-28 11:20 | OT.IP.TRT ---
Current Diagnoses Acute on chronic systolic (congestive) heart failure (02/26/25) Occupational Therapy Treatment Note M2 OT-IP Current Condition Start: 02/26/25 13:31 Freq: Status: Active Protocol: Document 02/26/25 14:02 [facility] (Rec: 02/26/25 14:30 [id number] Desktop) Occupational Therapy Current Condition Current Condition Evaluation Date 02/26/25 Treatment Diagnosis CHF exacerbation, fall, generalized weakness Diagnosis Onset Date 02/26/25 M3 OT- IP Subjective and Pain Start: 02/26/25 13:31 Freq: Status: Active Protocol: Document 02/28/25 11:21 [facility] (Rec: 02/28/25 11:30 [facility] Desktop) OT- Subjective Occupational Therapy Visit Type Type Treatment Note Visit Start Time 10:40 Visit Stop Time 11:20 Occupational Therapy Visit Comments Patient Comments Pt agreed to get up and practice use of LB dressing equipment so able to put a brief on. Patient/Caregiver TO go home. Goals OT Pain Assessment Pain When Pain Assessed During Mobility Pain Present Pain Present Pain Reported Location Bilateral Lower Back Pain Behaviors Facial Grimacing,Holding Area M4 OT- IP ADL's Start: 02/26/25 13:31 Freq: Status: Active Protocol: Document 02/28/25 11:21 [facility] (Rec: 02/28/25 11:30 [facility] Desktop) OT ADL-Grooming General Evaluation Grooming Ability Standby Assistance Comments OT Grooming Comments Pt able to wash her hands after set-up of wash cloth. OT ADL-Oral Care Comments Oral Care Comments Pt states did earlier. OT ADL-Dressing General Eval Lower Body Dressing Minimal Assistance Ability Areas Needing Underpants/Brief Assistance Comments OT Dressing Comments Able to practice with gandy dancer to john brief over her feet and up over her hips. Taught pt to hold with one hand on the FWW and other to help manage her brief. OT ADL-Toileting Comments OT Toileting Milian in place. Comments OT ADL-Bathing Comments OT Bathing Comments Pt states to try shower tomorrow. M5 OT- IP IADL's Start: 02/26/25 13:31 Freq: Status: Active Protocol: Document 02/26/25 14:02 [facility] (Rec: 02/26/25 14:30 [facility] Desktop) OT-Instrumental Activities of Daily Living Home Safety Awareness Awareness of Need Good Awareness for Assistance at Home Ability to Problem Able to Problem Solve Solve Emergency Situations Medication Management Medication No Deficits Identified Management Money Management Money Management No Deficits Identified Meal Preparation Meal Preparation Caregiver Provides Assist Electrical Installation Inspector Electrical Installation Inspector Caregiver Provides Assist Driving Driving Caregiver Provides Assist M6 OT- IP Functional Cognition Start: 02/26/25 13:31 Freq: Status: Active Protocol: Document 02/28/25 11:21 [facility] (Rec: 02/28/25 11:30 [facility] Desktop) Cognitive Factors Limiting Selfcare Function Cognitive Ability Memory Description Short Term Impaired Cognitive Comments Cognitive Assessment Pt needing cues to push up from the bed and to be sure Comments her feet are behind her so that they do not slide forwards while standing. M7 OT- IP Mobility and Balance Start: 02/26/25 13:31 Freq: Status: Active Protocol: Document 02/28/25 11:21 [facility] (Rec: 02/28/25 11:30 [facility] Desktop) OT-Transfer Assessment Sit to and From Stand Sit to and from Standby Assistance,Contact Guard Assistance Stand Transfers Transfer Ability Contact Guard Assistance Technique Transfer Destination Bed,Chair Devices Transfer Assistive Gait Belt,Front Wheeled Walker Devices Comments Mobility Comments Increased time to get to the edge of the bed. Pt able to come to stand and needing cues to proper technique and able to do with CGA to close SBA. CGA with FWW to transfer to the recliner with increased time. O2 on 2. 5L and from 86-93% and able to quickly recover within one minute. OT- Balance Assessment Sitting Balance and Reactions Static Sitting Good Balance Ability Dynamic Sitting Good Balance Ability Standing Balance and Reactions Static Standing Fair Balance Ability Dynamic Standing Fair Balance Ability M8 OT- IP Objective Assessments Start: 02/26/25 13:31 Freq: Status: Active Protocol: Document 02/26/25 14:02 [facility] (Rec: 02/26/25 14:30 [facility]) OT Gross Range of Motion Upper Extremity Range of Motion Assessment Bilaterally Impaired ROM Impairments Pt's R shoulder ~120 active scaption, R ~90 active scaption, otherwise WFL OT Strength Upper Extremity Strength Shoulder 3+ Elbow 4 Hand 4 Hand Interrelated Special Education Teacher Strength Hand Dominance Left OT- Coordination Assessment Upper Extremity Finger to Nose Test Within Functional Limits OT-Muscle Tone Assessment Muscle Tone WNL Yes M9 OT- IP Assessment and Plan Start: 02/26/25 13:31 Freq: Status: Active Protocol: Document 02/28/25 11:21 [facility] (Rec: 02/28/25 11:30 [facility] Desktop) OT Summary Assessment and Plan Potential Rehabilitation Good Potential Analytic Complexity Moderate at Evaluation Summary OT Impairments Range of Motion,Strength,Balance,Functional Mobility, Grooming,Dressing,Toileting,Bathing,Toilet Transfers, Shower Transfers,Activity Tolerance Progress Towards Progressing Toward Goals Goals Assessment Summary Pt still having decreased O2 with exertion from 86-93%. Able to practice use of gandy dancer for brief management needs. Pt would greatly benefit from home health OT for ADL needs at home and benefit to train her caregiver for OT equipment needs as needed. Goals Grooming Goal Independent Dressing Goal Independent,Veneer Redrier,Sock Aid Toileting Goal Independent Bathing Goal Independent,Grab Bars,Hand Held Shower Sprayer Toilet Transfer Goal Independent,Grab Bars Shower Transfer Goal Independent,Walk-in Shower,Grab Bars Days to Meet Goals 13 Frequency of Treatment Other frequency 5x/week Treatment Plan OT Treatment Plan ADL Training,Functional Cognition Training,Functional Mobility,Patient/Family Education,Discharge Planning Discharge Recommendations OT Discharge Home with 15/02 Assist Available,Home Health Recommendations Transportation Needs Private Vehicle,Wheelchair/Cabulance at Discharge
--- NOTE | 2025-02-28 11:52 | PT-IP ANOTE ---
checked on pt and refused PT. stated that she just got up with OT and wants to rest and for PT to come back after lunch.
--- NOTE | 2025-02-28 12:56 | PT.IPTN ---
Current Diagnoses Acute on chronic systolic (congestive) heart failure (02/26/25) Physical Therapy Treatment Note M2 PT-IP Current Condition Start: 02/26/25 13:26 Freq: NEEDED Status: Active Protocol: Document 02/26/25 13:31 MB (Rec: 02/26/25 14:12 MB Desktop) Physical Therapy Current Condition Current Condition Evaluation Date 02/26/25 Treatment Diagnosis CHF exacerbation and fall, first fall per her report M3 PT-IP Subjective Start: 02/26/25 13:26 Freq: NEEDED Status: Active Protocol: Document 02/28/25 12:56 AB (Rec: 02/28/25 13:41 AB [id number]) Subjective Physical Therapy Visit Type Type Treatment Note Visit Start Time 12:56 Visit Stop Time 13:26 Number of MILL OPERATOR HEAD Visits 0 Physical Therapy Visit Comments Patient Comments agreeable to do PT M4 PT-IP Mobility and Gait Start: 02/26/25 13:26 Freq: NEEDED Status: Active Protocol: Document 02/28/25 12:56 AB (Rec: 02/28/25 13:41 AB [id number]) PT-Transfer Assessment Sit to and From Stand Sit to and from Maximum Assistance,1 Person Assistance,Use of Upper Stand Extremities Equipment Transfer Assistive Gait Belt,Front Wheeled Walker Device Orthotic/Prosthetic No Devices or Brace: Gait Assessment Gait Gait Assistance Moderate Assistance Required: Distance (Feet) 20 Able to Maintain Yes Weight Bearing Status During Gait Assistive Devices Assistive Device Gait Belt,Front Wheeled Walker Orthotic/Prosthetic No Devices or Brace: Gait Deviations General Gait Pattern Antalgic,Decreased Stride Length,Decreased Feet Clearance,Flexed Trunk,Wide Based Gait Factors Limiting Gait Function Factors Limiting Decreased Activity Tolerance,Decreased Strength,Limited Gait Function Range of Motion,Pain,Poor Balance,Poor Safety Awareness,Respiratory Distress Comments Gait Comments pt sitting on the chair and agreeable to do PT. sit to stand from chair max A and pt ambulated using FWW mod A ~ 20 ft. pt sat back on chair and rested. O2 sat: 87 % with 2L/min O2. cued for deep breathing. O2 sat increased to 90% in ~ 20 sec. pt agreed to ambulate again after a few minutes of rest. sit to stand max A and cues. ambulated using FWW mod A and cues 20 ft. pt sat back on chair. O2 sat: 86%. O2 sat increased to 88-89% in ~ 15 sec. positioned pt on the chair . call light and table placed within reach. pt stated that she has hired caregivers to stay with her for a few days when she d/c back to [facility] M5 PT-IP Objective Assessments Start: 02/26/25 13:26 Freq: NEEDED Status: Active Protocol: Document 02/26/25 13:31 MB (Rec: 02/26/25 14:12 MB Desktop) Orientation Orientation/Cognition Level of Alertness Alert Orientation Name,Birthday,Place,Situation Language Function No Deficits Noted Ability Safety Awareness Decreased Safety Awareness Memory Description No Deficits Noted Gross Range of Motion Upper Extremity ROM Impairments Defer to OT Lower Extremity ROM Assessment Bilaterally Impaired Impairments See comments under gait Strength Lower Extremity Strength Assessment Bilaterally Impaired Comments Strength Comments See comments under gait. MMT deferred LEs d/t skin appearance, weakness all joints Coordination Assessment Gross Coordination Gross Coordination Impaired Sensation Assessment Comments Sensation Comments NT Muscle Tone Muscle Tone WNL No M6 PT-IP Treatment Start: 02/26/25 13:26 Freq: NEEDED Status: Active Protocol: Document 02/28/25 12:56 AB (Rec: 02/28/25 13:41 AB [id number]) Physical Therapy Treatment Education Education Provided Safety M7 PT-IP Assessment and Plan Start: 02/26/25 13:26 Freq: NEEDED Status: Active Protocol: Document 02/28/25 12:56 AB (Rec: 02/28/25 13:41 AB [id number]) PT Summary Assessment and Plan Potential Rehabilitation Fair Potential Summary Impairments Pain,ROM,Strength,Balance,Cognition,Bed Mobility Progress Towards Slow Progress due to Medical Issues,Slow Progress due Goals to Activity Tolerance Assessment Summary pt improving slowly with mobility and was able to ambulate today using FWW ~ 20 ft requiring mod A and cues. pt will need / assist and plans to go back to [facility] and will have caregivers to stay with her to assist. pt also stated that she has visiting nurse, HHPT and OT set up. Goals Transfer Goal Standby Assistance,Front Wheeled Walker Gait Goal Standby Assistance,Front Wheel Walker Gait Distance 35 Days to Meet Goals 5 Frequency of Treatment Frequency Of Once a Day Treatment Treatment Plan Physical Therapy Bed Mobility Training,Transfer Training,Gait Training, Treatment Plan Therapeutic Exercise,Balance Retraining,Discharge Planning,Hot or Cold Pack,Neuromuscular Re-ed, Coordination Retraining,Manual Therapy Recommendations To Nursing Amount of Assist 1 Person Assist Needed Discharge Recommendations PT Discharge Home with 15/02 Assist Available,Home Health Recommendations Equipment Needed for FWW Home Before Discharge Transportation Needs Wheelchair/Cabulance at Discharge - PT assist 1
[2025-02-28] MEDS: Sacubitril-Valsartan [Entresto] 49-51 mg tab 1 EACH PO (20:49)
[2025-02-28] MEDS: HYDROCODONE/ACET 5/325 TABLET 1 TAB PO (20:54)
--- NOTE | 2025-02-28 23:45 | PC.NURSE ---
Patient is alert and oriented. Breath sounds w/crackles in left lower lobe. Is on oxygen at 2L/min per NC with sat of 97% so decreased to 1L/min. HRR w/telemetry reading of SR w/1st degree AVB + BBB. Denied nausea. BT present and abdomen is soft. Denied nausea. Indwelling catheter is patent and urine is clear yellow. Is being repositioned q2h as she will allow and shows no signs of skin breakdown. Declines to have SCD's placed; education provided regarding purpose and risks but continues to decline. Complained of neck and bilateral shoulder pain and was medicated with vicodin and is currently asleep. Bilateral lower legs are reddened with rough texture and have appearance of alligator skin; no edema noted. Fall risk score is high and bed alarm is activated.
[2025-03-01] VITALS (8 sets, daily range): BP systolic 102–127; BP diastolic 46–57; PULSE 64–76; RESP 17–18; TEMP 35.7–36.5; O2SAT 92–95
[2025-03-01] MEDS: PANTOPRAZOLE DR 40 MG TABLET PO (05:16)
[2025-03-01 05:48] LABS: Blood Urea Nitrogen 20 mg/dL (7-17); Calcium 7.3 mg/dL (8.4-10.2); Chloride 95 mmol/L (98-107); Estimated Glomerular Filt Rate > 60 mL/min (>60); Glucose 90 mg/dL (70-99); Magnesium 2.0 mg/dL (1.6-2.3); Sodium 138 mmol/L (137-145)
[2025-03-01 06:04] LABS: HEMOLYSIS 67 (0-50)
[2025-03-01 06:06] LABS: Carbon Dioxide 40 mmol/L (22-32); Potassium 4.4 mmol/L (3.4-5.1)
--- NOTE | 2025-03-01 08:33 | PM.PN.IH.1 ---
Subjective Subjective Date Patient Seen: 03/01/25 Time Patient Seen: 08:33 Interval history: Patient appears stated with physical therapy. Still modestly hypoxic with activity although rapidly recovers Patient reports strength inability to do far more yesterday than she was able to do prior to admission feels like she is very close to baseline Lab work shows improvement in creatinine although slight bump in bicarb suggesting ongoing probable excessive diuresis in my opinion Patient uncertain whether her home oxygen was delivered or not as it was scheduled to be delivered a couple of days ago while she was still here in the hospital Exam Vital Signs (past 8 hours): - 03/01/25 04:00 03/01/25 08:00 Temperature 97.7 F 96.4 F L Pulse Rate 76 67 Respiratory Rate 18 18 Blood Pressure 121/57 L 116/49 L Pulse Oximetry 92 92 Oxygen Flow Rate 1 2 Fraction of Inspired Oxygen 28 SaO2/FiO2 Ratio 342 Oxygen Delivery Method Nasal Cannula Oxygen Flow Rate 2 Objective Labs 02/26/25 09:10 03/01/25 05:00 Labs: Laboratory Results - last 24 hr 03/01/25 05:00 Sodium 138 Potassium 4.4 Chloride 95 L Carbon Dioxide 40 H* BUN 20 H Creatinine 0.74 Estimated GFR > 60 BUN/Creatinine Ratio 27.0 H Glucose 90 Calcium 7.3 L Magnesium 2.0 PFSH Medical History Paroxysmal atrial fibrillation Cellulitis Left hip pain Lumbar spondylosis Cervical spondylosis Chronic neck pain Uncomplicated opioid dependence Chronic renal failure, stage 3a Chronic systolic (congestive) heart failure Closed L1 vertebral fracture Glaucoma (~11/2016) Osteoporosis 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) History of duodenal ulcer History of gastrointestinal hemorrhage Essential hypertension Idiopathic scoliosis (07/03/11) Hiatal hernia (07/03/11) Chronic back pain Status post nephrectomy Social History marital status: number of children: 2 household members: none lives independently: Yes caregiver/support person: Yes housing: house pets and animals: Yes education level: college occupational status: other 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 Acute on chronic congestive heart failure with reduced left ventricular function-continue with IV diuresis. I am going to reduce her furosemide dosing a little bit. Plan for discharge on torsemide instead of furosemide to see if we can get stability at home on oral meds 2. Respiratory failure-continue with oxygen replacement therapy. patient is going to require home oxygen therapy which hopefully has already been delivered, patient will have her daughter investigate as to whether or not it was delivered. She clearly will need home oxygen 3. Chronic renal failure-creatinine improved but bicarb up slightly probably a bit of metabolic acidosis secondary to the diuresis. We will back off a little bit on furosemide dosing as above 4. Weakness-continue with skilled therapies. Patient okay for discharge probably tomorrow with / caregivers at [facility]. She will also need home oxygen therapy. If all this can be arranged by tomorrow morning unless some further decline in clinical status I would assume she will be ready for discharge tomorrow, Wednesday the 02 of March Time-Based Coding :: [TOTAL MINUTES] spent with patient and on the chart (including review of chart, obtaining history, exam, reviewing outside data, placing orders, documenting exam and treatment plan, and counseling patient) on [DATE]. PROFEE Wood Cut Engraver Document charge(s): Yes Charge Codes Subsequent inpatient/observation care: 30201
[2025-03-01] MEDS: Sacubitril-Valsartan [Entresto] 49-51 mg tab 1 EACH PO ×2 (09:12→20:03)
[2025-03-01] MEDS: HYDROCODONE/ACET 5/325 TABLET 1 TAB PO (09:13)
[2025-03-01] MEDS: AMIODARONE 200 MG TABLET PO (09:15)
[2025-03-01] MEDS: ENOXAPARIN 40 MG/0.4 ML SYRINGE SUBCUT (09:15)
[2025-03-01] MEDS: METOPROLOL ER 50 MG TABLET PO ×2 (09:15→20:06)
[2025-03-01] MEDS: FERROUS SULFATE 325 MG TABLET PO (09:16)
[2025-03-01] MEDS: SODIUM CHLORIDE 0.9% FLUSH 10 ML IV ×2 (09:17→20:07)
--- NOTE | 2025-03-01 10:08 | OT.IPNOTE ---
Attempted to see pt for a shower and pt states too tired as just finished using the toilet just earlier. To check on the pt again prior to lunch for a shower.
--- NOTE | 2025-03-01 10:08 | PT-IP ANOTE ---
Checked on pt who refuses therapy, reporting tired after just getting up to the toilet. Con't PT efforts. Recommend up to chair all meals with nsg. Pt is up in chair on arrival.
--- NOTE | 2025-03-01 11:12 | PT-IP ANOTE ---
PT checked back with pt who is visiting with senior quality control inspector. Will con't PT efforts next date.
--- NOTE | 2025-03-01 11:14 | OT.IPNOTE ---
Pt visiting with her line assembly utility worker and states will do shower tomorrow. Therefore to check on the pt tomorrow for a shower.
--- NOTE | 2025-03-01 12:35 | CM.DPC ---
DCP Cont. Reviewed EMR and team rounds for status updates. Faxed F/F form and clinicals to [facility] for resumption of care. Per PCP, plan is for pt to d/c home tomorrow, 03/02.
[2025-03-01] MEDS: FUROSEMIDE 40 MG/4 ML VIAL IV (17:44)
[2025-03-01] MEDS: HYDROCODONE/ACET 5/325 TABLET 2 TAB PO (20:04)
[2025-03-01 21:25] LABS: Appearance Urine UA SL CLOUDY; Bilirubin Urine UA NEGATIVE (NEGATIVE); Color Urine UA YELLOW; Glucose Urine UA NEGATIVE (Negative); Ketones Urine UA NEGATIVE (NEGATIVE); Leukocyte Esterase Urine UA 2+ (NEGATIVE); Nitrite Urine UA POSITIVE (Negative); Occult Blood Urine UA 3+ (Negative); Protein Urine UA NEGATIVE (Negative); Specific Gravity Urine UA 1.015 (1.000-1.035); Urobilinogen Urine UA 0.2 E.U./dL (0.2)
[2025-03-01 21:29] LABS: pH Urine UA 6.0 (4.5-8.0)
[2025-03-02 01:00] VITALS: BP 123/57; PULSE 52; RESP 18; TEMP 35.8; O2SAT 93
[2025-03-02 01:46] LABS: Culture Indicated Urine Specimen Cultured
[2025-03-02] MEDS: FUROSEMIDE 40 MG/4 ML VIAL IV (04:50)
[2025-03-02 06:00] VITALS: BP 114/57; PULSE 55; RESP 18; TEMP 35.8; O2SAT 92
[2025-03-02] MEDS: PANTOPRAZOLE DR 40 MG TABLET PO (06:44)
--- NOTE | 2025-03-02 07:36 | PM.DS.IH.1 ---
History of Present Illness History of Present Illness Date Patient Seen: 03/02/25 Time Patient Seen: 07:36 Chief complaint: weakness, hypoxia Narrative: 84-year-old female admitted via emergency department with congestive heart failure She was hospitalized recently after suffering a reaction to Prolia with significant arthralgias etcetera. She was also felt to have a mild acute on chronic exacerbation of congestive heart failure which was treated with diuretics. When seen in the clinic last week she was modestly hypoxic at rest and certainly with activity and home oxygen therapy was in process of being arranged. She apparently has further declined with increasing shortness of breath especially with activity increasing weakness etcetera and was transported via EMS to the ED where she was found to be in acute on chronic congestive heart failure with an elevated BNP and mild hypoxia. Further evaluation was essentially unremarkable Patient reports falling yesterday at home, EMS was summoned but she declined to come to the hospital at that time. Her weakness has persisted and she finally agreed she should come in and be checked out at the hospital Denies any clear orthopnea PND no chest pain pressure no palpitations Discharge Providers Provider Date of admission: 02/26/25 11:51 Discharge Date: 03/02/25 Primary care physician: Charles Castaneda MD Consults: 02/26/25 12:45 Consult to Discharge Planning Routine Comment: Consult to Occupational Therapy Evaluate & Treat Comment: Physician Instructions: Evaluate and treat Consult to Physical Therapy Evaluate & Treat Comment: Physician Instructions: Evaluate and Treat 02/28/25 08:14 Consult to Physical Therapy Evaluate & Treat Comment: safe home mobility Physician Instructions: Front Wheeled Walker 03/01/25 12:10 Consult to Home Health Routine Comment: PT, OT, RN Reason For Exam: Home Health Services Discharge provider: Charles Castaneda MD Summary Hospital Course Discharge Diagnosis: 1. Acute on chronic congestive heart failure with reduced ejection fraction 2. Hypoxia 3. Hypertension 4. Chronic renal failure stage 3 a 5. Cardiomyopathy, nonischemic 6. UTI Hospital Course: Patient was admitted as above with hypoxia and evidence of congestive heart failure based on lab testing. She was treated with vigorous parental furosemide was produced a significant diuresis. Her overall clinical status seemed to improve although she was still hypoxic with activity and will require supplemental oxygen at home which has been delivered Patient also developed a UTI while hospitalized with catheter in place. Milian catheter was discontinued and patient was started on empiric oral antibiotic therapy Patient's blood pressure was well controlled although a bit hypotensive at times but no changes were made in her antihypertensive regimen Patient was seen by skilled therapies who thought she was safe to return home as long as she had 15/02 care which was arranged for prior to discharge. [facility] after an admission for arthralgias and myalgias secondary to a Prolia injection Status at Discharge Functional status at discharge: uses cane/walker Overall status at discharge: patient is progressing back to baseline Time Spent with Patient Time spent: Greater than 30 minutes Exam Vital Signs (past 8 hours): - 03/02/25 01:00 03/02/25 01:00 03/02/25 06:00 Temperature 96.4 F L 96.5 F L Pulse Rate 52 L 52 L 55 L Respiratory Rate 18 18 Blood Pressure 123/57 L 123/57 L 114/57 L Pulse Oximetry 93 92 Oxygen Flow Rate 2 2 Fraction of Inspired Oxygen 28 SaO2/FiO2 Ratio 342 Oxygen Delivery Method Nasal Cannula Oxygen Flow Rate 2 Objective Labs 02/26/25 09:10 03/01/25 05:00 Labs: Laboratory Results - last 24 hr 03/01/25 21:20 Urine Color Yellow Urine Appearance Sl cloudy Urine pH 6.0 Ur Specific [place] 1.015 Urine Protein Negative Urine Glucose (UA) Negative Urine Ketones Negative Urine Occult Blood 3+ H Urine Nitrate Positive H Urine Bilirubin Negative Urine Urobilinogen 0.2 Ur Leukocyte Esterase 2+ H Urine RBC 0-1/hpf Urine WBC 0-1/hpf Ur Squamous Epith Cells 0-1 /hpf Urine Bacteria Moderate (10-30) H Ur Culture Indicated? 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) History of duodenal ulcer History of gastrointestinal hemorrhage Essential hypertension Idiopathic scoliosis (07/03/11) Hiatal hernia (07/03/11) Chronic back pain Status post nephrectomy Social History marital status: number of children: 2 household members: none lives independently: Yes caregiver/support person: Yes housing: house pets and animals: Yes education level: college occupational status: other 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 kerry/denominational: Evangelical travel history: other leisure activities: reading and other Smoking Status: Former smoker Tobacco: How many years used: 8 Smokeless tobacco user: other quit status: quit date established second hand exposure: No alcohol intake: current substance use type: does not use Discharge Assessment & Plan Assessment and Plan Plan of Treatment: Patient will be switch from furosemide to torsemide as an outpatient to see if that will be more effective in controlling her congestive heart failure Patient will complete a 7 day course of nitrofurantoin for her cystitis and has had her urinary catheter discontinued Discharge Plan Discharge Plan Patient Disposition: Home Health Service Transfer to: [facility] Discharge orders & Medications Prescriptions: New torsemide 20 mg tablet 20 mg PO BID Qty: 60 3RF Rx Instructions: take one in am, one in early afternoon or at noon nitrofurantoin macrocrystal 100 mg capsule 100 mg PO BID 7 Days Qty: 14 0RF Rx Instructions: must administer with a meal/food Continued vitamin E 400 unit Capsule 400 unit PO DAILY Qty: 0 metoprolol succinate 50 mg tablet extended release 24 hr 50 mg PO BID Qty: 180 3RF omeprazole 40 mg capsule,delayed release(DR/EC) 40 mg PO QDAY Qty: 90 3RF Entresto 49-51 mg tablet 1 tab PO BID ferrous sulfate [Iron (ferrous sulfate)] 325 mg (65 mg iron) tablet 325 mg PO DAILY amiodarone 200 mg tablet 200 mg PO DAILY Qty: 90 3RF alendronate 70 mg tablet 70 mg PO QWEEK Qty: 12 3RF hydrocodone-acetaminophen 5-325 mg tablet 1 tab PO Q4H MDD 3 tabs PRN (Reason: pain) Qty: 30 0RF Discontinued furosemide 40 mg tablet 40 mg PO BID Qty: 90 3RF Rx Instructions: One dose in am, one at noon No Action (DME) Disabled Parking Permit Qty: 1 0RF Rx Instructions: Patient qualifies for disabled parking as per the attached form. Follow up/Referrals: Charles Castaneda MD [Primary Care Provider, Internal Medicine] - 1 Week Diet/Activity/Treatments Diet: Diet as Tolerated and Low-sodium Oxygen: 2 l/min NC with activity and at night Visit Report/Discharge Packet Stand Alone Forms: Congestive Heart Failure, Patient Portal/API Discharge Data Primary Care Provider: Charles Castaneda PROFEE Charge Codes Discharge inpatient/observation: [id number]
[2025-03-02 08:36] VITALS: BP 128/59; PULSE 60
[2025-03-02] MEDS: FERROUS SULFATE 325 MG TABLET PO (08:36)
[2025-03-02] MEDS: METOPROLOL ER 50 MG TABLET PO (08:36)
[2025-03-02] MEDS: Sacubitril-Valsartan [Entresto] 49-51 mg tab 1 EACH PO (08:36)
[2025-03-02] MEDS: NITROFURANTOIN ER 100 MG CAPSULE PO (08:38)
[2025-03-02] MEDS: SODIUM CHLORIDE 0.9% FLUSH 10 ML IV (08:38)
[2025-03-02] MEDS: AMIODARONE 200 MG TABLET PO (08:38)
[2025-03-02 09:19] VITALS: O2SAT 95
--- NOTE | 2025-03-02 09:28 | CM.DPNOTE ---
Addendum entered by KATHLEEN Mason 03/02/25 11:28: DCP updated: Per RN, pt requiring at least 2L O2 and there is no home O2 available at this time. DCP notified MD who verbally ordered home o2 evaluation, notified RT and RN. [facility] and pt daughter have been notified of delay in discharge pending home O2 evaluation and order. JEN Corral Original Note: DCP Continued: Reviewed EMR and team rounds for pt?s medical status. Per MD, pt cleared for discharge home with home health in the care of pt daughter. Discharge orders placed. DCP spoke with [facility] (Jayleen), who reports that pt has a private caregivers available for her at time of discharge. DCP confirmed that pt will be transported home by 11:00a, [facility] to resume care at 1:00p. Per RN, pt daughter will transport pt at 11:00am back to [facility]. DCP to send discharge summary to [facility] when available/signed. Plan: Pt to discharge back to [facility] via daughter POV, [facility] and [facility] to follow. CM Team will continue to follow for coordination of discharge plans. JEN Corral
[2025-03-02 10:00] VITALS: BP 128/60; PULSE 52; RESP 18; TEMP 35.7; O2SAT 94
--- NOTE | 2025-03-02 10:23 | OT.IP.TRT ---
Current Diagnoses Acute on chronic systolic (congestive) heart failure (02/26/25) Occupational Therapy Treatment Note M2 OT-IP Current Condition Start: 02/26/25 13:31 Freq: Status: Active Protocol: Document 02/26/25 14:02 [facility] (Rec: 02/26/25 14:30 [facility] Desktop) Occupational Therapy Current Condition Current Condition Evaluation Date 02/26/25 Treatment Diagnosis CHF exacerbation, fall, generalized weakness Diagnosis Onset Date 02/26/25 M3 OT- IP Subjective and Pain Start: 02/26/25 13:31 Freq: Status: Active Protocol: Document 03/02/25 10:37 [facility] (Rec: 03/02/25 10:44 [facility] Desktop) OT- Subjective Occupational Therapy Visit Type Visit Start Time 10:13 Visit Stop Time 10:36 Occupational Therapy Visit Comments Patient Comments Pt just having a sponge bath and on the BSC. Patient/Caregiver TO get better and go home. Goals OT Pain Assessment Location Bilateral Lower Back Pain Behaviors Facial Grimacing M4 OT- IP ADL's Start: 02/26/25 13:31 Freq: Status: Active Protocol: Document 03/02/25 10:37 [facility] (Rec: 03/02/25 10:44 [facility] Desktop) OT ADL-Dressing General Eval Upper Body Dressing Moderate Assistance Ability Lower Body Dressing Maximum Assistance Ability Comments OT Dressing Comments Assist with bra front closure and to help get shirt over her head. Assist with shoe and to don clothing over her feet and up over her hips. OT ADL-Toileting General Evaluation Toileting Ability Maximum Assistance Areas Needing Manage Clothing,Perform Perineal Hygiene Assistance OT ADL-Bathing Comments OT Bathing Comments Nursing aid assisted with sponging off earlier. M5 OT- IP IADL's Start: 02/26/25 13:31 Freq: Status: Active Protocol: Document 02/26/25 14:02 [facility] (Rec: 02/26/25 14:30 [facility] Desktop) OT-Instrumental Activities of Daily Living Home Safety Awareness Awareness of Need Good Awareness for Assistance at Home Ability to Problem Able to Problem Solve Solve Emergency Situations Medication Management Medication No Deficits Identified Management Money Management Money Management No Deficits Identified Meal Preparation Meal Preparation Caregiver Provides Assist Personnel Interviewer Personnel Interviewer Caregiver Provides Assist Driving Driving Caregiver Provides Assist M6 OT- IP Functional Cognition Start: 02/26/25 13:31 Freq: Status: Active Protocol: Document 02/28/25 11:21 [facility] (Rec: 02/28/25 11:30 [facility] Desktop) Cognitive Factors Limiting Selfcare Function Cognitive Ability Memory Description Short Term Impaired Cognitive Comments Cognitive Assessment Pt needing cues to push up from the bed and to be sure Comments her feet are behind her so that they do not slide forwards while standing. M7 OT- IP Mobility and Balance Start: 02/26/25 13:31 Freq: Status: Active Protocol: Document 03/02/25 10:37 [facility] (Rec: 03/02/25 10:44 [facility] Desktop) OT-Transfer Assessment Sit to and From Stand Sit to and from Contact Guard Assistance Stand Transfers Transfer Ability Contact Guard Assistance,Minimal Assistance Technique Transfer Destination Bedside Commode,Wheelchair Devices Transfer Assistive Gait Belt,Front Wheeled Walker Devices Comments Mobility Comments CGA to stand from the BSC and CGA for balance and assist to guide the FWW. Pt on RA and from 81-88% however possible poor reading due to cold hands. Able to issue pt a FWW. OT- Balance Assessment Sitting Balance and Reactions Static Sitting Good Balance Ability Dynamic Sitting Good Balance Ability Standing Balance and Reactions Static Standing Fair Balance Ability Dynamic Standing Fair Balance Ability M8 OT- IP Objective Assessments Start: 02/26/25 13:31 Freq: Status: Active Protocol: Document 02/26/25 14:02 [facility] (Rec: 02/26/25 14:30 [facility] Desktop) OT Gross Range of Motion Upper Extremity Range of Motion Assessment Bilaterally Impaired ROM Impairments Pt's R shoulder ~120 active scaption, R ~90 active scaption, otherwise WFL OT Strength Upper Extremity Strength Shoulder 3+ Elbow 4 Hand 4 Hand Carpenter Rough Strength Hand Dominance Left OT- Coordination Assessment Upper Extremity Finger to Nose Test Within Functional Limits OT-Muscle Tone Assessment Muscle Tone WNL Yes M9 OT- IP Assessment and Plan Start: 02/26/25 13:31 Freq: Status: Active Protocol: Document 03/02/25 10:37 [facility] (Rec: 03/02/25 10:44 [facility] Desktop) OT Summary Assessment and Plan Potential Rehabilitation Good Potential Analytic Complexity Moderate at Evaluation Summary OT Impairments Range of Motion,Strength,Balance,Functional Mobility, Grooming,Dressing,Toileting,Bathing,Toilet Transfers, Shower Transfers,Activity Tolerance Progress Towards Slow Progress due to Activity Tolerance Goals Assessment Summary Pt looking to go home today. Able to assist pt for toileting and dressing needs due to decreased activity tolerance. Pt to go home with 24/7 assist and home health. Pt states has already ordered a BSC and issued a FWW to the pt today. Goals Days to Meet Goals 13 Frequency of Treatment Other frequency 5x/week Treatment Plan OT Treatment Plan ADL Training,Functional Cognition Training,Functional Mobility,Patient/Family Education,Discharge Planning Discharge Recommendations OT Discharge Home with 24/7 Assist Available,Home Health Recommendations Transportation Needs Private Vehicle at Discharge
--- NOTE | 2025-03-02 10:54 | PC.NURSE ---
Addendum entered by Diane Jon R.N. 03/02/25 16:17: Home oxygen set up by RT. Oxygen tanks (2) dispensed to pt at 1430, stated she would come as soon as possible to transport pt to [facility]. IV discontinued, telemetry removed. Pt wheeled via w/c to private vehicle with this RN and daughter at approximately 1550. Original Note: Discharge: Pt A&Ox4 and agreeable to discharge plan. Pt states home O2 already set up and set up to be delivered February 27. Daughter arrived to room with a replacement of clothes but no oxygen. Per daughter, no oxygen concentrator was located in pt apartment at [facility]. Daughter called while RN in the room, confirmed with staff at [facility] there was no oxygen delivered. Care management/space planner Magdalene notified. Provider Dr. Castaneda notified. Per Dr. Castaneda, home oxygen was set up outpatient and should have been delivered as scheduled. Pt assisted back to chair, call light within reach. Care ongoing.
--- NOTE | 2025-03-02 13:30 | PT-IP ANOTE ---
checked on pt this morning and refused PT. stated that she has been moving enough already this morning and does not want to do PT at this time.
--- NOTE | 2025-03-14 07:53 | PC.NURSE ---
Late entry note for 2 tabs Hydrocodone/Acetaminophen PO @ 2100 on 02/27/2025 given for generalized/lower back pain of 03/04. Reassessed ~2145, pt asleep.
== END 2025-03-02 15:50 | disposition home health service (06) | DRG 291 ==
LOC: ED 11:50 → AC 11:52
PROVIDERS: Admitting Provider Internal Medicine; Emergency Provider Family Medicine; PCP Internal Medicine; Referring Provider Family Medicine; Visit Provider Internal Medicine
DX: I13.0 Hypertensive heart and chronic kidney disease with heart failure and stage 1 through stage 4 chronic kidney disease, or unspecified chronic kidney disease (principal); I50.23 Acute on chronic systolic (congestive) heart failure; T83.511A Infection and inflammatory reaction due to indwelling urethral catheter, initial encounter; J96.01 Acute respiratory failure with hypoxia; E87.20 Acidosis, unspecified; N18.31 Chronic kidney disease, stage 3a; M41.9 Scoliosis, unspecified; R53.1 Weakness; M47.812 Spondylosis without myelopathy or radiculopathy, cervical region; M47.816 Spondylosis without myelopathy or radiculopathy, lumbar region; I48.91 Unspecified atrial fibrillation; N30.90 Cystitis, unspecified without hematuria; Y73.1 Therapeutic (nonsurgical) and rehabilitative gastroenterology and urology devices associated with adverse incidents; Z87.891 Personal history of nicotine dependence; Z90.5 Acquired absence of kidney
CPT/HCPCS: 36415; 71045; 71275; 80048; 80053; 81001; 81015; 82550; 82805; 83605; 83690; 83735; 83880; 84145; 84484; 85025; 85610; 85730; 87040; 87077; 87086; 87186; 87637; 93005; 93306; 94618; 94640; 96374; 97116; 97161; 97166; 97530; 97535; 99285; J1650; J1938; J7613; Q9967

== ENCOUNTER → 2025-04-23 14:36 | Outpatient (CLI) | payer MEDICARE, SELFPAY ==
[2025-02-26 12:58] VITALS: BMI 27.3
[2025-04-23 18:07] LABS: Appearance Urine UA CLEAR; Bilirubin Urine UA NEGATIVE (NEGATIVE); Color Urine UA YELLOW; Glucose Urine UA NEGATIVE (Negative); Ketones Urine UA NEGATIVE (NEGATIVE); Leukocyte Esterase Urine UA 3+ (NEGATIVE); Nitrite Urine UA NEGATIVE (Negative); Occult Blood Urine UA TRACE-INTACT (Negative); Protein Urine UA NEGATIVE (Negative); Specific Gravity Urine UA 1.010 (1.000-1.035); Urobilinogen Urine UA 0.2 E.U./dL (0.2)
[2025-04-23 18:09] LABS: pH Urine UA 5.5 (4.5-8.0)
[2025-04-23 18:18] LABS: Culture Indicated Urine Specimen Cultured
== END ==
PROVIDERS: PCP Internal Medicine; Referring Provider Internal Medicine; Visit Provider Internal Medicine
DX: R31.9 Hematuria, unspecified (principal)
CPT/HCPCS: 81001; 87077; 87086; 87186

== ENCOUNTER → 2025-07-23 18:13 | Outpatient (CLI) | payer MEDICARE, SELFPAY ==
[2025-07-23 12:59] VITALS: BMI 27.3
--- NOTE | 2025-07-23 18:15 | DI.RAD.S_ITS ---
PROCEDURE: XR FOOT RT MIN 3V INDICATIONS: right heel pain/ulcer TECHNIQUE: 3 views of the foot were acquired. COMPARISON: None. FINDINGS: Bones: No fractures or dislocations. No suspicious bony lesions. Diffuse osseous demineralization. No focal periosteal reaction. Soft tissues: No tibiotalar joint effusion. Achilles tendon appears normal. Soft tissue wound along the posterior hindfoot. IMPRESSION: No radiographic osteomyelitis of the posterior calcaneus adjacent to the soft tissue wound. If there is high clinical suspicion, consider contrasted MRI of the hindfoot for further evaluation. Dictated by: Betito Guardado M.D. on 07/24/2025 at 8:41 Approved by: Betito Guardado M.D. on 07/24/2025 at 8:43
== END ==
LOC: RAD 18:14
PROVIDERS: PCP Internal Medicine; Referring Provider Internal Medicine; Visit Provider Internal Medicine
DX: L97.419 Non-pressure chronic ulcer of right heel and midfoot with unspecified severity (principal)
CPT/HCPCS: 73630